=== PATIENT | female | born 1950 | race Caucasian/White ===

== ENCOUNTER → 2023-06-26 | Outpatient (CLI) | payer MEDICARE, OTHER, SELFPAY ==
--- NOTE | 2023-06-26 09:19 | US_ITS ---
STUDY: ULTRASOUND BREAST - RIGHT REASON FOR EXAM: Female, 72 years old. Abnormal screening mammogram. TECHNIQUE: Axial and longitudinal images of the RIGHT breast were performed with a high resolution ultrasound transducer. # OF IMAGES: 35 COMPARISON: Comparison is made with prior outside examination dated June 22, 2023. FINDINGS: RIGHT Breast: The inferior lateral aspect of the right breast was examined with ultrasound. There is a 4 mm x 5 mm x 3 mm hypoechoic irregular nodule at the 7:00 position breast at 5 cm from the nipple. Biopsy is recommended. There is also evidence of dilated retroareolar ducts. US/Breast Limited Unilateral IMPRESSION: 4 mm x 5 mm x 3 mm hypoechoic irregular nodule at the 7:00 position of the breast at 5 cm from nipple. Biopsy recommended. ASSESSMENT CATEGORY: BIRADS Category 4: Suspicious - Biopsy Should Be Considered. A letter regarding these results will be sent to the patient by the facility within 30 days. Electronically Signed: Alexander Orr MD at 14:48 EST ,
--- OUTSIDE RECORDS SUMMARY | 2023-06-26 09:55 | XMS RPT_ITS | CCD ---
Author Name Unknown Address [address] [place] [address] Organization [facility] Care Team Providers Care Assembler Dc Field Ring Name Role Phone Unavailable Unavailable Unavailable Marissa Chakraborty Unavailable Lorraine, Paulette Macdonald Unavailable Unavailable Paulette Peters Unavailable Unavailable Paulette Peters Unavailable Unavailable Paulette Peters Unavailable Unavailable Marissa Chakraborty Primary Care Provider [phone] Paulette Peters Primary Care Provider PAULETTE PETERS Attending Unavailable MARISSA CHAKRABORTY Primary Care Unavailable MARISSA CHAKRABORTY Primary Care Unavailable SHERLEY NO Attending Unavailable August Attending Unavailable MARISSA CHAKRABORTY Primary Care Unavailable ANNA PITTS Attending Unavailvineet e PAULETTE PETERS Primary Care Unavailable PAULETTE PETERS Attending Unavailable PAULETTE PETERS Primary Care Unavailable ANNA PITTS Admitting UnavailANNA Pedraza Referring Unavailvineet e PAULETTE PETERS Primary Care Unavailable MARISSA CHAKRABORTY Admitting Unavailable MARISSA CHAKRABORTY Referring Unavailable MARISSA CHAKRABORTY Primary Care Unavailable MARISSA CHAKRABORTY Attending Unavailable MARISSA CHAKRABORTY Primary Care Unavailable Marissa Chakraborty Primary Care Provider [phone] Bhanu Meng MD Primary Care Provider [phone] DENNYS BANEGAS Attending Unavailab BHANU Matos Primary Care Unavailable Bhanu Meng Unavailable Jaqueline Ly Unavailable Unavailable Bhanu Meng Unavailable Chris Duran Unavailable Unavailable Marilyn Hair Unavailable [phone] [employer] ELAM, Bhanu Colin Primary Care Provider [phone] [employer] ELAM, Bhanu Colin Primary Care Provider Ta[employer] ELAM, Bhanu Colin Primary Care Provider Gerardo Adair Unavailable Unavailable Taqueria ELAM, Bhanu Colin Primary Care Provider [phone] Bijan Carrillo Admitting Unavailable Bijan Carrillo Attending Unavailable Taqueria, Dr. Bhanu Lemons Primary Care Huyen Meng, Dr. Bhanu Lemons Referring Huyen Carroll, Ms. Hannah Dorantes Attending Unavailable Taqueria, Dr. Bhanu Lemons Primary Care Huyen Meng, Dr. Bhanu Lemons [facility] Adair, Dr. Gerardo Nicole Attending Unavaila shauna Meng MD, Bhanu Lemons [facility] Care Provider MARILYN HAIR Referring Unavailable MARILYN HAIR Attending Unavailable PRITI MENGREY [place] Primary Care Unavailable MARILYN HAIR Attending Unavailable TAQUERIA, BHANU [place] Primary Care Unavailable TAQUERIA BHANU [place] Primary Care Unavailable BHANU MENG Referring Unavailable VETOTHONY, MIESHA Referring Unavailable TAQUERIA, BHANU A Primary Care Unavailable VETOMIESHA BHANDARI Attending Unavailable TAQUERIA, BHANU A Primary Care Unavailable RAFAELA WASHINGTON Attending Unavailable TAQUERIA, BHANU A Primary Care Unavailable MARILYN HAIR Attending Unavailable TAQUERIA, BHANU A Primary Care Unavailable MARILYN HAIR Attending Unavailable TAQUERIA BHANU A Primary Care Unavailable KARLI MARILYN Referring Unavailable TAQUERIA, BHANU A Primary Care Unavailable MARILYN HAIR Attending Unavailable TAQUERIA, BHANU A Primary Care Unavailable RAFAELA WASHINGTON Attending Unavailable TAQUERIA BHANU A Primary Care Unavailable BHANU MENG [facility] UnavailCHRIS Pineda Attending Unavailable CHRIS DURAN Referring Unavailable BHANU MENG [facility] Care Unavailabl e BHANU MENG Referring Unavailabl e BHANU MENG [facility] Unavailabl e BHANU MENG [facility] Unavailabl e CHRIS DURAN Attending Unavailable Allergies Allergy Classification Reported Allergen(s) Allergy Type Date of Onset Reaction(s) Facility Opioid Agonists (2 sources) Meperidine; Translations: [MEPERIDINE] Drug Allergy 8 GI Intolerance [facility] Work Phone: (14 sources) cat dander extract; Translations: [CAT DANDER] Propensity to adverse reactions to drug 6 Itching [facility] Work Phone: (14 sources) AGRAWAL PHAM; Translations: [AGRAWAL PHAM] Propensity to adverse reactions to drug 6 Other (See Comments) [facility] Work Phone: (14 sources) RAGWEED; Translations: [RAGWEED] Propensity to adverse reactions to drug 6 Other (See Comments) [facility] Work Phone: (20 sources) meperidine; Translations: [Unknown] Drug Allergy 8 GI Intolerance [facility] Medications Current Medications Medication Drug Class(es) Dates Sig (Normalized) Sig (Original) amoxicillin 875 mg / clavulanate 125 mg oral tablet (4 sources) Penicillin-class Antibacterial Start: 04-22-2023 End: 04-29-2023 take 1 tablet by mouth every twelve hours amoxicillin-pot clavulanate (Augmentin) 875-125 mg tablet Indications: Acute pharyngitis, unspecified etiology Take 1 tablet (875 mg) by mouth every 12 hours for 7 days. 14 tablet 0 04/22/2023 04/29/2023 Active Completed/Discontinued Medications Medication Drug Class(es) Dates Sig (Normalized) Sig (Original) benzonatate 200 mg oral capsule (7 sources) Non-narcotic Antitussive Start: 08-23-2022 End: 01-20-2023 take 1 capsule by mouth every eight hours as needed Benzonatate 200 mg capsule Take 1 capsule by mouth three times daily as needed. 20 capsule 0 08/23/2022 01/20/2023 Discontinued Problems Active Problems Problem Classification Problem Date Documented Da te Episodic/Chronic Abdominal pain (10 sources) Right lower quadrant pain; Translations: [Abdominal pain, right lower quadrant] Episodic Conditions associated with dizziness or vertigo (2 sources) Benign paroxysmal positional vertigo; Translations: [Benign paroxysmal positional vertigo] 11-16-2020 Episodic Disorders of lipid metabolism (3 sources) Dyslipidemia; Translations: [Hyperlipidemia, unspecified] Onset: 07-18-2022 Chronic Diverticulosis and diverticulitis (1 source) Diverticulosis of large intestine without perforation or abscess without bleeding; Translations: [Dvrtclos of lg int w/o perforation or abscess w/o bleeding] Onset: 01-17-2023 Chronic Esophageal disorders (1 source) Gastro-esophageal reflux disease with esophagitis; Translations: [Gastroesophageal reflux disease with esophagitis without hemorrhage] 05-21-2023 Chronic Esophageal disorders (2 sources) Esophageal disorders; Translations: [Gastro-esophageal reflux disease with esophagitis, without bleeding] Onset: 05-21-2023 Essential hypertension (20 sources) Hypertensive disorder; Translations: [Unspecified essential hypertension] Onset: 01-16-2022 11-16-2020 Chronic Headache; including migraine (1 source) Headache; including migraine; Translations: [Headache, unspecified] Onset: 03-07-2022 Hemorrhoids (10 sources) Internal hemorrhoids; Translations: [Internal hemorrhoids without mention of complication] Episodic Nonmalignant breast conditions (1 source) Fibrocystic disease of breast Chronic Osteoarthritis (20 sources) Bilateral arthritis of knees; Translations: [Bilateral primary osteoarthritis of knee] Onset: 04-29-2020 10-19-2020 Chronic Osteoporosis (20 sources) Senile osteoporosis; Translations: [Age-related osteoporosis without current pathological fracture] Onset: 01-06-2021 01-06-2021 Chronic Other and unspecified benign neoplasm (3 sources) Personal history of colonic polyps; Translations: [Personal history of colonic polyps] Onset: 01-17-2023 Episodic Other bone disease and musculoskeletal deformities (1 source) Osteochondropathy; Translations: [Disorder of bone and cartilage] Chronic Other gastrointestinal disorders (10 sources) Incontinence of feces; Translations: [Full incontinence of feces] Episodic Other injuries and conditions due to external causes (1 source) At low risk for fall; Translations: [At low risk for fall] Episodic Other liver diseases (1 source) Enzyme level - finding; Translations: [Abnormal levels of other serum enzymes] Episodic Other screening for suspected conditions (not mental disorders or infectious disease) (20 sources) Breast neoplasm screening status; Translations: [Patient encounter status] Onset: 10-25-2016 10-25-2016 Episodic Other upper respiratory disease (12 sources) Allergic rhinitis; Translations: [Allergic rhinitis, unspecified] Onset: 02-27-2017 02-27-2017 Chronic Other upper respiratory disease (3 sources) Seasonal allergic rhinitis; Translations: [Seasonal allergic rhinitis, unspecified trigger] Chronic Other upper respiratory disease (2 sources) Pain in throat 03-08-2021 Episodic Past or Other Problems Problem Classification Problem Date Documented Date Episodic/Chronic Acute bronchitis (1 source) Acute bronchitis, unspecified; Translations: [Acute bronchitis, unspecified] Onset: 08-21-2022 Episodic Administrative/social admission (20 sources) Advance directive discussed with patient; Translations: [Other specified counseling] Onset: 11-23-2021 Episodic Cardiac dysrhythmias (20 sources) Palpitations; Translations: [Palpitations] Onset: 05-06-2015 05-06-2015 Episodic Diabetes mellitus without complication (20 sources) Hyperglycemia; Translations: [Impaired fasting glucose] Onset: 07-08-2019 03-18-2020 Episodic Genitourinary symptoms and ill-defined conditions (9 sources) Dysuria; Translations: [Dysuria] Onset: 01-25-2018 Resolved: 06-13-2018 01-25-2018 Episodic Nonspecific chest pain (9 sources) Chest pain; Translations: [Chest pain, unspecified] Onset: 04-12-2018 Resolved: 06-13-2018 04-12-2018 Episodic Other circulatory disease (13 sources) Spider nevus; Translations: [Nevus, non-neoplastic] Onset: 01-14-2016 01-14-2016 Episodic Other circulatory disease (11 sources) Elevated blood-pressure reading without diagnosis of hypertension; Translations: [Elevated blood-pressure reading, without diagnosis of hypertension] Onset: 01-06-2021 01-06-2021 Episodic Other circulatory disease (1 source) Other specified symptoms and signs involving the circulatory and respiratory systems; Translations: [Oth symptoms and signs involving the circ and resp systems] Onset: 08-21-2022 Episodic Other connective tissue disease (6 sources) Lateral epicondylitis, left elbow; Translations: [Lateral epicondylitis of left humerus] Onset: 02-08-2018 02-08-2018 Episodic Other connective tissue disease (20 sources) Pain in left arm; Translations: [Pain in left arm] Onset: 05-06-2015 03-03-2016 Episodic Other diseases of kidney and ureters (20 sources) Cyst of kidney; Translations: [Cyst of kidney, acquired] Onset: 11-26-2021 Episodic Other ear and sense organ disorders (1 source) Otalgia, bilateral; Translations: [Otalgia, bilateral] Onset: 08-21-2022 Episodic Other ear and sense organ disorders (1 source) Otalgia, unspecified ear; Translations: [Otalgia, unspecified ear] Onset: 03-07-2022 Episodic Other injuries and conditions due to external causes (1 source) At risk for falls Episodic Other non-traumatic joint disorders (9 sources) Knee pain; Translations: [Pain in right knee] Onset: 02-08-2018 02-08-2018 Episodic Other non-traumatic joint disorders (20 sources) Pain in left knee; Translations: [Chronic pain of left knee] Onset: 05-06-2015 Episodic Other non-traumatic joint disorders (20 sources) Hip pain; Translations: [Pain in left hip] Onset: 10-25-2016 10-25-2016 Episodic Other non-traumatic joint disorders (3 sources) Pain in right knee; Translations: [Pain in joint, lower leg] Onset: 12-21-2022 12-13-2022 Episodic Residual codes; unclassified (1 source) Postmenopausal state Episodic Residual codes; unclassified (1 source) Generalized aches and pains; Translations: [Body aches] Episodic Residual codes; unclassified (20 sources) FH: Thyroid disorder; Translations: [Family history of other endocrine, nutritional and metabolic diseases] Onset: 10-25-2016 10-25-2016 Episodic Residual codes; unclassified (1 source) Family history of other endocrine, nutritional and metabolic diseases; Translations: [Family history of thyroid disease] Onset: 10-25-2016 Episodic Unclassified (16 sources) Patient encounter status; Translations: [Wellness examination] Onset: 02-27-2017 Resolved: 06-13-2018 02-27-2017 Varicose veins of lower extremity (20 sources) Varicose veins of lower extremity; Translations: [Asymptomatic varicose veins of unspecified lower extremity] Onset: 05-06-2015 01-01-2016 Episodic Results Test Name Value Interpretation Reference Range Facil ity Vital Signs Date Time Vital Sign Value Performing Clinician Facility 05-21-2023 06:04-0500 Diastolic blood pressure 85 mm[Hg] Chris Duran DO Work Phone: [phone] [place] [address] 05-21-2023 06:04-0500 Heart rate 65 /min Chris Duran DO Work Phone: 0(626)[phone] [place] [address] 05-21-2023 06:04-0500 Respiratory rate 18 /min Chris Duran DO Work Phone: 8(297)[phone] [place] [address] 05-21-2023 06:04-0500 SaO2% (BldA) [Mass fraction] 98 % Chris Duran DO Work Phone: 4(216)[phone] [place] [address] 05-21-2023 06:04-0500 Systolic blood pressure 159 mm[Hg] Chris Duran DO Work Phone: 4(733)[phone] [address] 05-21-2023 03:17-0500 Body height 154.9 cm Chris Duran DO Work Phone: 1(680)[phone] [address] 05-21-2023 03:17-0500 Body mass index (BMI) [Ratio] 24.37 kg/m2 Chris Duran DO Work Phone: 5(487)[phone] [place] [address] 05-21-2023 03:17-0500 Body temperature 98.01 [degF] Chris Duran DO Work Phone: 8(817)214-097833 [place] [address] 05-21-2023 03:17-0500 Body weight 58.51 kg Chris Duran DO Work Phone: 2(337)231-261333 [place] [address] 04-22-2023 03:00-0500 Diastolic blood pressure 86 mm[Hg] Chris Duran DO Work Phone: 1(286)565-942933 [place] [address] 04-22-2023 03:00-0500 Heart rate 76 /min Chris Duran DO Work Phone: 9(853)299-475633 [place] [address] 04-22-2023 03:00-0500 Respiratory rate 18 /min Chris Duran DO Work Phone: 6(724)147-853333 [place] [address] 04-22-2023 03:00-0500 SaO2% (BldA) [Mass fraction] 94 % Chris Duran DO Work Phone: [facility] 04-22-2023 03:00-0500 Systolic blood pressure 134 mm[Hg] Chris Duran DO Work Phone: [facility] 04-22-2023 01:20-0500 Body height 154.9 cm Chris Duran DO Work Phone: [facility] 04-22-2023 01:20-0500 Body mass index (BMI) [Ratio] 22.67 kg/m2 Chris Duran DO Work Phone: [facility] 04-22-2023 01:20-0500 Body temperature 98.4 [degF] Chris Duran DO Work Phone: [facility] 04-22-2023 01:20-0500 Body weight 54.43 kg Chris Duran DO Work Phone: [facility] 02-20-2023 08:50-0400 Diastolic blood pressure 78 mm[Hg] Marilyn Hair PA-C Work Phone: [facility] 02-20-2023 08:50-0400 Systolic blood pressure 133 mm[Hg] Marilyn Hair PA-C Work Phone: [facility] 02-20-2023 08:38-0400 Heart rate 75 /min Marilyn Hair PA-C Work Phone: [facility] 02-20-2023 08:25-0400 Body temperature 98.1 [degF] Marilyn Hair PA-C Work Phone: [facility] 02-20-2023 08:25-0400 Body weight 58.97 kg Marilyn Hair PA-C Work Phone: [facility] 02-20-2023 08:25-0400 Respiratory rate 16 /min Marilyn Hair PA-C Work Phone: [facility] 01-20-2023 08:31-0400 Diastolic blood pressure 86 mm[Hg] Marilyn Hair PA-C Work Phone: [facility] 01-20-2023 08:31-0400 Heart rate 73 /min Marilynmarina Hair PA-C Work Phone: [facility] 01-20-2023 08:31-0400 Systolic blood pressure 161 mm[Hg] Marilynmarina Hair PA-C Work Phone: [facility] 01-20-2023 08:02-0400 Body temperature 97.2 [degF] Marilyn Hair PA-C Work Phone: [facility] 01-20-2023 08:02-0400 Body weight 58.51 kg Marilyn Hair PA-C Work Phone: [facility] 01-20-2023 08:02-0400 Respiratory rate 16 /min Marilynmarina Hair PA-C Work Phone: [facility] 11-10-2022 10:50-0400 Body temperature 98.01 [degF] Rafaela Washington APRN.[address] SQL DEVELOPER Work Phone: [facility] 11-10-2022 10:50-0400 Body weight 58.06 kg Rafaela Washington APRN.[address] SQL DEVELOPER Work Phone: [facility] 11-10-2022 10:50-0400 Diastolic blood pressure 78 mm[Hg] Rafaela Washington APRN.[address] SQL DEVELOPER Work Phone: [facility] 11-10-2022 10:50-0400 Heart rate 74 /min Rafaela Washington APRN.[address] SQL DEVELOPER Work Phone: [facility] 11-10-2022 10:50-0400 Respiratory rate 14 /min Rafaela Washington APRN.[address] SQL DEVELOPER Work Phone: [facility] 11-10-2022 10:50-0400 SaO2% (BldA) [Mass fraction] 96 % Rafaela Washington APRN.[address] SQL DEVELOPER Work Phone: [facility] 11-10-2022 10:50-0400 Systolic blood pressure 120 mm[Hg] Rafaela Washington APRN.[address] SQL DEVELOPER Work Phone: [facility] 08-12-2022 09:16-0400 Diastolic blood pressure 88 mm[Hg] Marilyn Hair PA-C Work Phone: [facility] 08-12-2022 09:16-0400 Systolic blood pressure 147 mm[Hg] Marilyn Hair PA-C Work Phone: [facility] 08-12-2022 08:08-0400 Body weight 58.06 kg Marilyn Hair PA-C Work Phone: [facility] 08-12-2022 08:08-0400 Heart rate 70 /min Marilyn Hair PA-C Work Phone: [facility] 08-12-2022 08:08-0400 Respiratory rate 16 /min Marilyn Hair PA-C Work Phone: [facility] 08-12-2022 08:08-0400 SaO2% (BldA) [Mass fraction] 99 % Marilyn Hair PA-C Work Phone: [facility] 07-18-2022 08:29-0500 Diastolic blood pressure 86 mm[Hg] Marilyn Hair PA-C Work Phone: [facility] 07-18-2022 08:29-0500 Systolic blood pressure 158 mm[Hg] Marilyn Hair PA-C Work Phone: [facility] 07-18-2022 08:27-0500 Body weight 58.06 kg Marilyn Hair PA-C Work Phone: [facility] 07-18-2022 08:27-0500 Heart rate 76 /min Marilyn Hair PA-C Work Phone: [facility] 07-18-2022 08:27-0500 Respiratory rate 16 /min Marilyn Hair PA-C Work Phone: [facility] 07-18-2022 08:27-0500 SaO2% (BldA) [Mass fraction] 98 % Marilyn Hair PA-C Work Phone: [facility] 03-07-2022 23:40-0400 Diastolic blood pressure 89 mm[Hg] Bhanu Meng Other Phone: [facility] 03-07-2022 23:40-0400 Heart rate 90 /min Bhanu Meng Other Phone: [facility] 03-07-2022 23:40-0400 Respiratory rate 16 /min Bhanu Meng Other Phone: [facility] 03-07-2022 23:40-0400 SaO2% (BldA) [Mass fraction] 96 % Bhanu Meng Other Phone: [facility] 03-07-2022 23:40-0400 Systolic blood pressure 136 mm[Hg] Bhanu Meng Other Phone: [facility] 03-07-2022 22:12-0400 Body height 154.9 cm Bhanu Meng Other Phone: [facility] 03-07-2022 22:12-0400 Body temperature 98.96 [degF] hBanu Meng Other Phone: [facility] 03-07-2022 22:12-0400 Body weight 56 kg Bhanu Meng Other Phone: [facility] 12-23-2021 09:21-0400 Body weight 57.61 kg Marilyn Hair PA-C Work Phone: [facility] 12-23-2021 09:21-0400 Diastolic blood pressure 82 mm[Hg] Marilyn Hair PA-C Work Phone: [facility] 12-23-2021 09:21-0400 Heart rate 72 /min Marilyn Hair PA-C Work Phone: [facility] 12-23-2021 09:21-0400 Respiratory rate 16 /min Marilyn Hair PA-C Work Phone: [facility] 12-23-2021 09:21-0400 Systolic blood pressure 148 mm[Hg] Marilyn Hair PA-C Work Phone: [facility] 11-26-2021 10:00-0400 Body weight 56.25 kg Marilyn Hair PA-C Work Phone: [facility] 11-26-2021 10:00-0400 Diastolic blood pressure 88 mm[Hg] Marilyn Hair PA-C Work Phone: [facility] 11-26-2021 10:00-0400 Heart rate 72 /min Marilyn Hair PA-C Work Phone: [facility] 11-26-2021 10:00-0400 Respiratory rate 14 /min Marilyn Hair PA-C Work Phone: [facility] 11-26-2021 10:00-0400 Systolic blood pressure 158 mm[Hg] Marilyn Hair PA-C Work Phone: [facility] 11-23-2021 11:20-0400 Diastolic blood pressure 84 mm[Hg] Marilyn Hair PA-C Work Phone: [facility] 11-23-2021 11:20-0400 Heart rate 70 /min Marilyn Hair PA-C Work Phone: [facility] 11-23-2021 11:20-0400 Systolic blood pressure 159 mm[Hg] Marilyn Hair PA-C Work Phone: [facility] 11-23-2021 10:10-0400 Body height 153.5 cm Marilyn Hair PA-C Work Phone: [facility] 11-23-2021 10:10-0400 Body temperature 98.49 [degF] Marilyn Hair PA-C Work Phone: [facility] 11-23-2021 10:10-0400 Body weight 56.7 kg Marilyn Hair PA-C Work Phone: [facility] 11-23-2021 10:10-0400 Respiratory rate 16 /min Marilyn Hair PA-C Work Phone: [facility] 03-08-2021 11:12-0400 Diastolic blood pressure 80 mm[Hg] Bhanu Meng Other Phone: [facility] 03-08-2021 11:12-0400 Heart rate 78 /min Bhanu Meng Other Phone: [facility] 03-08-2021 11:12-0400 SaO2% (BldA) [Mass fraction] 98 % Bhanu Meng Other Phone: [facility] 03-08-2021 11:12-0400 Systolic blood pressure 130 mm[Hg] Bhanu Meng Other Phone: [facility] 03-08-2021 09:46-0400 Body height 154.9 cm Bhanu Meng Other Phone: [facility] 03-08-2021 09:46-0400 Body temperature 95.36 [degF] Bhanu Meng Other Phone: [facility] 11-16-2020 08:57-0400 Diastolic blood pressure 88 mm[Hg] Bhanu Meng Other Phone: [facility] 11-16-2020 08:57-0400 Heart rate 76 /min Bhanu Meng Other Phone: [facility] 11-16-2020 08:57-0400 Systolic blood pressure 169 mm[Hg] Bhanu Meng Other Phone: [facility] 11-16-2020 07:51-0400 Body height 154.9 cm Bhanu Meng Other Phone: [facility] 11-16-2020 07:51-0400 Body temperature 98.24 [degF] Bhanu Meng Other Phone: [facility] 11-16-2020 07:51-0400 Body weight 56.4 kg Bhanu Meng Other Phone: [facility] 11-16-2020 07:51-0400 Respiratory rate 16 /min Bhanu Meng Other Phone: [facility] 11-16-2020 07:51-0400 SaO2% (BldA) [Mass fraction] 96 % Bhanu Meng Other Phone: [facility] 10-27-2020 10:31-0400 Body temperature 97.7 [degF] Dennys Banegas MD Work Phone: [facility] 10-27-2020 10:31-0400 Diastolic blood pressure 92 mm[Hg] Dennys Banegas MD Work Phone: [facility] 10-27-2020 10:31-0400 Heart rate 67 /min Dennys Banegas MD Work Phone: [facility] 10-27-2020 10:31-0400 Respiratory rate 16 /min Dennys Banegas MD Work Phone: [facility] 10-27-2020 10:31-0400 SaO2% (BldA) [Mass fraction] 96 % Dennys Banegas MD Work Phone: [facility] 10-27-2020 10:31-0400 Systolic blood pressure 157 mm[Hg] Dennys Banegas MD Work Phone: [facility] 10-30-2018 10:12-0400 BMI (Body Mass Index) 23.43 kg/m2 [facility] 10-30-2018 10:12-0400 Body Temperature 97.9 [degF] [facility] 10-30-2018 10:12-0400 BP Diastolic 77 mm[Hg] [facility] 10-30-2018 10:12-0400 BP Systolic 137 mm[Hg] [facility] 10-30-2018 10:12-0400 Height 154.9 cm [facility] 10-30-2018 10:12-0400 Pulse (Heart Rate) 78 /min [facility] 10-30-2018 10:12-0400 Pulse Oximetry 98 % [facility] 10-30-2018 10:12-0400 Respiratory Rate 18 /min [facility] 10-30-2018 10:12-0400 Weight 56.25 kg [facility] 10-19-2018 13:55-0400 BMI (Body Mass Index) 23.24 kg/m2 [facility] 10-19-2018 13:55-0400 Body Temperature 98.01 [degF] [facility] 10-19-2018 13:55-0400 BP Diastolic 77 mm[Hg] [facility] 10-19-2018 13:55-0400 BP Systolic 130 mm[Hg] [facility] 10-19-2018 13:55-0400 Height 154.9 cm [facility] 10-19-2018 13:55-0400 Pulse (Heart Rate) 66 /min [facility] 10-19-2018 13:55-0400 Pulse Oximetry 98 % [facility] 10-19-2018 13:55-0400 Respiratory Rate 18 /min [facility] 10-19-2018 13:55-0400 Weight 55.79 kg [facility] 06-14-2018 09:16-0500 BMI (Body Mass Index) 23.24 kg/m2 [facility] 06-14-2018 09:16-0500 Body Temperature 97.5 [degF] [facility] 06-14-2018 09:16-0500 BP Diastolic 73 mm[Hg] [facility] 06-14-2018 09:16-0500 BP Systolic 128 mm[Hg] [facility] 06-14-2018 09:16-0500 Height 154.9 cm [facility] 06-14-2018 09:16-0500 Pulse (Heart Rate) 85 /min [facility] 06-14-2018 09:16-0500 Pulse Oximetry 95 % [facility] 06-14-2018 09:16-0500 Respiratory Rate 16 /min [facility] 06-14-2018 09:16-0500 Weight 55.79 kg [facility] 06-13-2018 08:14-0500 BMI (Body Mass Index) 23.24 kg/m2 [facility] 06-13-2018 08:14-0500 Body Temperature 97.81 [degF] [facility] 06-13-2018 08:14-0500 Body weight 55.79 kg [facility] 06-13-2018 08:14-0500 BP Diastolic 82 mm[Hg] [facility] 06-13-2018 08:14-0500 BP Systolic 131 mm[Hg] [facility] 06-13-2018 08:14-0500 Height 154.9 cm [facility] 06-13-2018 08:14-0500 Pulse (Heart Rate) 74 /min [facility] 06-13-2018 08:14-0500 Pulse Oximetry 97 % [facility] 06-13-2018 08:14-0500 Respiratory Rate 18 /min [facility] 04-12-2018 10:00-0500 BP Diastolic 80 mm[Hg] [facility] 04-12-2018 10:00-0500 BP Systolic 128 mm[Hg] [facility] 04-12-2018 09:14-0500 BMI (Body Mass Index) 23.24 kg/m2 [facility] 04-12-2018 09:14-0500 Height 154.9 cm [facility] 04-12-2018 09:14-0500 Weight 55.79 kg [facility] 02-27-2017 08:51-0400 BMI (Body Mass Index) 23.26 kg/m2 Marissa Chakraborty [facility] Work Phone: 02-27-2017 08:51-0400 Body Temperature 95.4 [degF] Marissa Chakraborty [facility] Work Phone: 02-27-2017 08:51-0400 BP Diastolic 75 mm[Hg] Marissa Chakraborty [facility] Work Phone: 02-27-2017 08:51-0400 BP Systolic 164 mm[Hg] Marissa Chakraborty [facility] Work Phone: 02-27-2017 08:51-0400 Height 154.9 cm Marissa Chakraborty [facility] Work Phone: 02-27-2017 08:51-0400 Pulse (Heart Rate) 67 /min Marissa Chakraborty [facility] Work Phone: 02-27-2017 08:51-0400 Respiratory Rate 18 /min [facility] Work Phone: 02-27-2017 08:51-0400 Weight 55.84 kg [facility] Work Phone: 12-22-2016 11:38-0400 BMI (Body Mass Index) 23.05 kg/m2 [facility] Work Phone: 12-22-2016 11:38-0400 Body Temperature 98.4 [degF] [facility] Work Phone: 12-22-2016 11:38-0400 BP Diastolic 76 mm[Hg] [facility] Work Phone: 12-22-2016 11:38-0400 BP Systolic 148 mm[Hg] [facility] Work Phone: 12-22-2016 11:38-0400 Height 154.9 cm [facility] Work Phone: 12-22-2016 11:38-0400 Pulse (Heart Rate) 67 /min [facility] Work Phone: 12-22-2016 11:38-0400 Pulse Oximetry 97 % [facility] Work Phone: 12-22-2016 11:38-0400 Respiratory Rate 16 /min [facility] Work Phone: 12-22-2016 11:38-0400 Weight 55.34 kg [facility] Work Phone: Encounters Encounter Date Encounter Type Care Provider Facility Start: 06-23-2023 ambulatory RAFAELA Marino y:[facility] Start: 06-22-2023 End: 06-23-2023 ambulatory BHANU MENG [facility] Start: 06-22-2023 End: 06-22-2023 Subsequent hospital visit by physician Farhan [id number] Mammo [facility] Procedures Date Procedure Procedure Detail Performing Clinician Start: 06-22-2023 BI MAMMO BILATERAL SCREENING TOMOSYNTHESIS BHANU MENG Start: 06-22-2023 End: 06-22-2023 Screening digital breast tomosynthesis bi Non- Radiology Contrast Provider Start: 05-24-2023 ECG 12-LEAD BHANU VALADEZ Start: 05-24-2023 Ecg routine ecg w/le ast 12 lds trcg only w/o i&r Chris Guadarramaft DO Work Phone: Start: 05-21-2023 EXTRA TUBES BHANU KOHLI CONSTANTINSONJA Start: 05-21-2023 LIGHT BLUE TOP BHANU MENG Start: 05-21-2023 CBC W Auto Different ial panel - Blood BHANU MENG Start: 05-21-2023 Comprehensive metabo lic 2000 panel - Serum or Plasma BHANU MENG Start: 05-21-2023 Lipase [Enzymatic activity/volume] in Serum or Plasma BHANU MENG Start: 05-21-2023 Magnesium [Mass/volu me] in Serum or Plasma BHANU MENG Start: 05-21-2023 TROPONIN I, HIGH SENSITIVITY BHANU MENG Start: 05-21-2023 XR CHEST 1 VIEW BHANU MENG Start: 05-21-2023 Comprehensive metabo lic panel Chris Bergeron Duran DO Work Phone: Start: 05-21-2023 Radiologic exam ches t single view Chris Bergeron Duran DO Work Phone: Start: 04-22-2023 GROUP A STREPTOCOCCUS, PCR BHANU TAQUERIA Start: 04-22-2023 Iadna streptococcus group a amplified probe tq Chris Bergeron Duran DO Work Phone: Start: 01-17-2023 Colonoscopy Marilyn sawyer PA-C Work Phone: Start: 01-16-2023 Lipid 1996 panel - S christine or Plasma Marilyn Hair PA-C Work Phone: Start: 12-21-2022 Radiologic exam knee complete 4/more views Miesha Jefferson PA-C Work Phone: Start: 11-25-2021 Us abdominal real ti me w/image limited Marilyn Hair PA-C Work Phone: Start: 11-23-2021 Adult depression scr eening assessment Marilyn Hair PA-C Work Phone: Start: 09-27-2021 Radiologic exam knee complete 4/more views Jamar Albert MD Work Phone: Start: 11-16-2020 End: 11-16-2020 EKG impression Jaqueline Ly Start: 10-19-2020 Adult depression scr eening assessment Jamar Albert MD Work Phone: Start: 01-15-2020 Mammography Chris Duran DO Work Phone: Start: 06-14-2018 Adult depression scr eening assessment Dennys Banegas MD Work Phone: Start: 06-13-2018 Influenzavirus antib erik assay Paulette Peters Work Phone: Start: 04-12-2018 End: 04-12-2018 Complete blood count with white cell differential, manual Paulette Peters Work Phone: Start: 04-12-2018 End: 04-12-2018 Comprehensive metabolic 2000 panel - Serum or Plasma Paulette Fischer Morrill Work Phone: Start: 04-12-2018 End: 04-12-2018 Erythrocyte sedimentation rate by Westergren method Paulette Peters Work Phone: Start: 04-12-2018 End: 04-12-2018 Lipid 1996 panel - Serum or Plasma Paulette Peters Work Phone: Start: 04-12-2018 End: 04-12-2018 [facility] - CARDIAC TROPONIN-I Paulette Borjas [facility] Work Phone: Start: 04-12-2018 End: 04-12-2018 Thyrotropin [Units/volume] in Serum or Plasma by Detection limit <= 0.005 mIU/L Paulette Peters Work Phone: Start: 04-12-2018 End: 04-12-2018 12 lead ECG Paulette Peters Work Phone: Start: 09-01-2017 Colonoscopy Paulette Peters Plan of Treatment Date Care Activity Detail Author Start: 01-17-2033 Screening for malignant neoplasm of colon [facility] Start: 01-18-[address] [facility] Start: 01-18-2028 Colorectal Cancer Screening Colorectal Cancer Screening [facility] Start: 01-18-2028 Screening for malignant neoplasm of colon Colonoscopy [facility] Start: 01-17-2028 Lipid 1996 panel - Serum or Plasma Lipid Screening [facility] Start: 01-17-2028 Lipid panel Lipid Screening [facility] Start: 01-17-2028 LIPID SCREEN LIPID SCREEN [facility] Start: 09-02-2027 Screening colonoscopy COLONOSCOPY [facility] Start: 07-18-2027 L[address]ID SCREEN LIPID SCREEN [facility] Start: 11-23-2026 LIPID SCREEN LIPID SCREEN [facility] Start: 01-16-2026 DIABETES SCREEN DIABETES SCREEN [facility] Start: 01-16-2026 Diabetes Screening Diabetes Screening [facility] Start: 10-19-2025 LIPID SCREEN LIPID SCREEN [facility] Start: 07-18-2025 DIABETES SCREEN DIABETES SCREEN [facility] Start: 12-01-2024 DTaP/Tdap/Td Vaccines (2 - Td or Tdap) DTaP/Tdap/Td Vaccines (2 - Td or Tdap) [facility] Start: 12-01-2024 Tetanus vaccination [facility] Work Phone: Start: 12-01-[address] [facility] Start: 11-23-2024 DIABETES SCREEN DIABETES SCREEN [facility] Start: 06-22-2024 Screening for malignant neoplasm of breast Mammogram [facility] Start: 02-21-2024 Annual PCP Team Chronic Disease Visit Annual PCP Team Chronic Disease Visit [facility] Start: 01-21-2024 ANNUAL PCP TEAM CHRONIC DISEASE VISIT ANNUAL PCP TEAM CHRONIC DISEASE VISIT [facility] Start: 11-26-2023 Influenza vaccination Influenza Vaccine (#1) [facility] Immunizations Immunization Date Immunization Notes Care Provider Fa david 07-08-2019 influenza virus vaccine, unspecified formulation Marilyn Hair PA-C Work Phone: [facility] 12-01-2014 tetanus toxoid, redu sparkle diphtheria toxoid, and acellular pertussis vaccine, adsorbed Marissa Ivet [facility] Work Phone: 09-12-1991 hepatitis B vaccine, adult dosage [facility] 09-12-1991 hepatitis B vaccine, pediatric or pediatric/adolescent dosage Marilyn Hair PA-C Work Phone: [facility] 05-07-1991 hepatitis B vaccine, adult dosage [facility] 05-07-1991 hepatitis B vaccine, pediatric or pediatric/adolescent dosage Marilyn Hair PA-C Work Phone: [facility] 03-13-1991 hepatitis B vaccine, adult dosage [facility] 03-13-1991 hepatitis B vaccine, pediatric or pediatric/adolescent dosage Marilyn Hair PA-C Work Phone: [facility] Payers Date Payer Category Payer Unknown 2015 Medicare MEDICARE MEDICAR E PART A & B xxxxxxxxxxx 2015-Present [place] xxxxxxxxx[place] [id number] 2015 Medicare [id number] 2015 Medicare [id number] 2015 Unknown [id number] 2015 Unknown MMO MEDICAL MUT[place] OF [place] TRADITIONAL xxxxxxxxxxxx 2015-Present xxxxxxxxxxxx [id number] 2015 Unknown [id number] 2014 Medicare [id number] 1950 Unknown [id number] 1950 Unknown [id number] [id number]3 1950 Unknown [id number] [id number]3 1950 Unknown [id number] 2.16.840.1.530896.3.579.2.903 1950 Unknown [id number] 2.16.840.1.379130.3.579.2.903 1950 Unknown [id number] 2.16.840.1.842106.3.579.2.903 1950 Unknown [id number] 2.16.840.1.207927.3.579.2.903 1950 Unknown [id number] 2.16.840.1.329860.3.579.2.903 1950 Unknown [id number] 2.16.840.1.719775.3.579.2.902 1950 Unknown [id number] 2.16.840.1.976194.3.579.2.106 9 1950 Unknown [id number] 2.16.840.1.572954.3.579.2.106 9 1950 Unknown [id number] 2.16.840.1.760209.3.579.2.106 9 1950 Unknown [id number] 2.16.840.1.948731.3.579.2.124 3 1950 Unknown [id number] 2.16.840.1.758505.3.579.2.124 3 1950 Unknown [id number] 2.16.840.1.816540.3.579.2.124 3 1950 Unknown [id number] [id number] 3 Medicare [id number] Social History Date Type Detail Facility Start: 01-30-2017 End: 04-22-2023 Tobacco smoking status NHIS Never smoker [facility] Work Phone: Start: 1950 Sex Assigned At Not on file O [facility] Work Phone: Start: 06-14-2018 End: 10-30-2018 History SDOH Alcohol Frequency 3 [facility] Start: 06-14-2018 End: 10-30-2018 History SDOH Alcohol Std Drinks 1 [facility] Start: 06-14-2018 History SDOH Social Connections Phone 5 [facility] Start: 06-14-2018 History SDOH Social Connections Get Together 2 [facility] Start: 06-14-2018 History SDOH Physica l Activity DPW 7 [facility] Start: 06-14-2018 History SDOH Physica l Activity MPS 6 [facility] Start: 06-14-2018 History SDOH Education 13 [facility] Start: 01-14-2016 Alcohol Comment 5 glasses of w ine a month [facility] Start: 10-30-2018 End: 04-22-2023 Tobacco use and exposure Never used [facility] Start: 10-30-2018 End: 02-20-2023 Alcohol intake Current drinker of alcohol (finding) [facility] Start: 09-17-2021 End: 06-22-2023 Exposure to SARS-CoV-2 (event) Not sure [facility] Tobacco smoking consumption unknown [facility] Start: 12-09-2022 End: 06-22-2023 Non-smoker Non-smoker [facility] Work Phone: Start: 06-17-2019 History SDOH Alcohol Comment ocassional wine [facility] Start: 12-09-2022 End: 06-22-[address] [facility] Work Phone: Adult Depression Screening Assessment [address] [facility] Work Phone: Start: 1950 Sex Assigned At Female C [facility] Start: 12-20-2022 Gender identity Identifies as female gender (finding) [facility] Goals Date Patient Goal Desired Activity /State Clinical Notes 10-27-2020 to 06-23-2023 Chris Duran, DO 05/21/2023 3:13 AM Claribel Duran, DO 05/21/2023 3:13 AM Lily Harris MA - 05/09/2023 12:09 PM Lily Harris MA - 05/09/2023 7:40 AM ESTPatient Instructions Note Date & Type Note Facility 06-23-2023 Note HNO ID: [id number] Author: RAFAELA WASHINGTON APRN.[address] [employer]ELOPER Service: ? Author Type: Nurse Practitioner Type: Progress Notes Filed: 06/23/2023 09:21 Note Text: Chief Complaint Patient presents with: Follow Up: Discuss mammogram results HPI Laim Hu is a 72 year old female who presents here today for Above Complaints.. Patient presents to discuss mammogram results. Patient had mammogram at that showed a well-defined ovoid mass in the 6:00 position of the right breast. Past medical history, appointments, medications, allergies reviewed. Previous Medical History PAST MEDICAL HISTORY Diagnosis Date Age-related osteoporosis without current pathological fracture 01/06/2021 patient declines treatment beyond calcium and vit d as of 01/06/21. Repeat bone density in 2 years Arthritis of both knees 04/29/2020 Sever on right and moderate on left of medial joint spaces. Elevated fasting glucose 07/08/2019 Family history of thyroid disease 10/25/2016 Hemorrhage of rectum and anus 08/03/2005 Hypertension, essential 01/16/2022 Medicare annual wellness visit, subsequent 10/25/2016 last done: 10/25/2016 Pain in left knee 05/06/2015 Varicose veins 05/06/2015 Previous Surgical History PAST SURGICAL HISTORY Procedure Laterality Date COLONOSCOPY 2005 FECAL OCCULT BLOOD TEST 11/08/2016 negative PAST SURGICAL HISTORY OF 1977 varicose veins stripped bilateral. PAST SURGICAL HISTORY OF sclerotherapy several times PAST SURGICAL HISTORY OF 2007 anterior vaginal repair prolapse Family History FAMILY HISTORY Problem Relation Age of Onset Alzheimer's Disease Father Diabetes Paternal Grandmother Stroke Maternal Grandfather Cancer Mother smoker Thyroid Mother Patient Allergies ALLERGIES No Known Allergies Current Medications Current Outpatient Medications on File Prior to Visit Medication Sig diclofenac, EC, (VOLTAREN) 75 mg EC tablet Take 1 tablet by mouth twice daily. For pain/inflammation. Take with food. lisinopril (ZESTRIL) 10 mg tablet Take 1 tablet by mouth once daily. Cholecalciferol, Vitamin D3, 1,000 unit cap Take 2,000 Units by mouth once daily. No current facility-administered medications on file prior to visit. Social History Social History Tobacco Use Smoking status: Never Smokeless tobacco: Never Vaping Use Vaping Use: Never used Substance Use Topics Alcohol use: Yes Comment: ocassional wine Drug use: Never Review of Symptoms REVIEW OF SYSTEMS SEE HPI EXAM: BP 160/82 Pulse 78 Resp 14 Wt 59 kg (130 lb) BMI 25.03 kg/m? General Appearance: Well appearing, alert, in no acute distress, well-hydrated, well nourished.. Health Maintenance List BP Controlled (<130/80) Never done RSV Vaccine(1 - 1-dose 60+ series) Never done Advance Directive Discussion due on 05/29/2023 Depression Assessment due on 05/29/2023 Shingrix Vaccine(1 of 2) due on 07/18/2023 Covid-19 Vaccine(1) due on 07/18/2023 Pneumococcal Vaccine: 65+(1 of 1 - PCV) due on 07/18/2023 Influenza Vaccine(1) due on 11/26/2023 Annual PCP Team Chronic Disease Visit due on 02/21/2024 Mammogram Screening due on 06/22/2024 DTaP,Tdap,Td Vaccine(2 - Td or Tdap) due on 12/01/2024 Diabetes Screening due on 05/21/2026 Lipid Screening due on 01/17/2028 Bone Density Screening Completed Hepatitis C Screening Completed Colorectal Cancer Screening Discontinued ASSESSMENT/PLAN: 1. Abnormal mammogram - ICD9: 793.80, ICD10: R92.8 - US BREAST LTD RIGHT Rafaela Washington APRN.[facility] 06-22-2023 Note Mass in the right br east, as described above. Further evaluation with ultrasound is recommended. BI-RADS CATEGORY: BI-RADS Category: 0 Incomplete; Need Additional Imaging Evaluation and/or Prior Mammograms for Comparison. Recommendation: Ultrasound. Recommended Date: Immediate. Laterality: Right. MACRO: None Signed by: Naveen Barba 06/22/2023 10:03 AM Dictation workstation: [id number] [facility] 05-21-2023 Emergency department Note HPI Chief Complaint Patient presents with GERD Pt comes in for heart burn x 30 mins. Pt states that she was woken up approx 30 min travel pta. She states she is having a burning sensation from her neck to her chest. Pt denies any numbness or SOB 72-year-old female presents with chief complaint of midepigastric pain. Patient was awoken with severe reflux. Patient states she has had some intermittent episodes over the last several months but this was the most significant one. Patient denies any chest pain or palpitation. No nausea, vomiting or diarrhea. Patient will be given oral omeprazole 40 mg p.o. and reassess. Patient did have moderate relief with medication will be discharged. I did go over all the findings with the patient prior to discharge. History provided by: Patient No data recorded Patient History History reviewed. No pertinent past medical history. History reviewed. No pertinent surgical history. No family history on file. Social History Tobacco Use Smoking status: Never Smokeless tobacco: Never Substance Use Topics Alcohol use: Not on file Drug use: Not on file Physical Exam ED Triage Vitals [05/21/23 0317] Temp Heart Rate Resp BP 36.7 C (98 F) 67 16 151/83 SpO2 Temp Source Heart Rate Source Patient Position 97 % Temporal Monitor Sitting BP Location FiO2 (%) Left arm -- Physical Exam Vitals and nursing note reviewed. Constitutional: General: She is not in acute distress. Appearance: She is well-developed. HENT: Head: Normocephalic and atraumatic. Eyes: Conjunctiva/sclera: Conjunctivae normal. Cardiovascular: Rate and Rhythm: Normal rate and regular rhythm. Heart sounds: No murmur heard. Pulmonary: Effort: Pulmonary effort is normal. No respiratory distress. Breath sounds: Normal breath sounds. Abdominal: Palpations: Abdomen is soft. Tenderness: There is abdominal tenderness. Comments: Slight midepigastric pain to palpation. Musculoskeletal: General: No swelling. Cervical back: Neck supple. Skin: General: Skin is warm and dry. Capillary Refill: Capillary refill takes less than 2 seconds. Neurological: Mental Status: She is alert. Psychiatric: Mood and Affect: Mood normal. XR chest 1 view Final Result 1. No radiographic evidence of acute cardiopulmonary process. MACRO: None. Signed by: Winter Flanagan 05/21/2023 4:27 AM Dictation workstation: [id number] ED Course & [facility] ED Course as of 05/21/23 0558 [place] May 21, 2023 0356 Twelve-lead EKG interpreted by myself at 0330. 1 normal sinus rhythm at 66 2 low voltage criteria 3 no ectopy [MS] ED Course User Index [MS] Chris Duran, Diagnoses as of 05/21/23 0558 Gastroesophageal reflux disease with esophagitis without hemorrhage Labs Reviewed CBC WITH AUTO DIFFERENTIAL - Abnormal Result Value WBC 5.9 nRBC 0.0 RBC 4.76 Hemoglobin 14.9 Hematocrit 46.3 (*) MCV 97 MCH 31.3 MCHC 32.2 RDW 12.8 Platelets 174 Neutrophils % 59.9 Immature Granulocytes %, Automated 0.3 Lymphocytes % 27.2 Monocytes % 9.0 Eosinophils % 2.4 Basophils % 1.2 Neutrophils Absolute 3.52 Immature Granulocytes Absolute, Automated 0.02 Lymphocytes Absolute 1.60 Monocytes Absolute 0.53 Eosinophils Absolute 0.14 Basophils Absolute 0.07 COMPREHENSIVE METABOLIC PANEL - Abnormal Glucose 112 (*) Sodium 140 Potassium 4.0 Chloride 112 (*) Bicarbonate 23 Anion Gap 9 (*) Urea Nitrogen 19 Creatinine 0.59 eGFR >90 Calcium 8.9 Albumin 3.8 Alkaline Phosphatase 68 Total Protein 6.2 (*) AST 31 Bilirubin, Total 0.3 ALT 37 MAGNESIUM - Normal Magnesium 1.96 LIPASE - Normal Lipase 23 Narrative: Venipuncture immediately after or during the administration of Metamizole may lead to falsely low results. Testing should be performed immediately prior to Metamizole dosing. TROPONIN I, HIGH SENSITIVITY - Normal Troponin I, High Sensitivity <3 Narrative: Less than 99th percentile of normal range cutoff- Female and children under 18 years old <14 ng/L; Male <21 ng/L: Negative Repeat testing should be performed if clinically indicated. Female and children under 18 years old 14-50 ng/L; Male 21-50 ng/L: Consistent with possible cardiac damage and possible increased clinical risk. Serial measurements may help to assess extent of myocardial damage. >50 ng/L: Consistent with cardiac damage, increased clinical risk and myocardial infarction. Serial measurements may help assess extent of myocardial damage. NOTE: Children less than 1 year old may have higher baseline troponin levels and results should be interpreted in conjunction with the overall clinical context. NOTE: Troponin I testing is performed using a different testing methodology at [facility] than at other [facility]. Direct result comparisons should only be made within the same method. Medical Decision Making Take medication as prescribed. Follow-up with [facility] medical doctor in 1 to 2 days if worse return to ED. Procedure Procedures Chris Duran DO 05/21/23 0558 documented in this encounter [facility] Work Phone: 05-21-2023 Physician Emergency department Note HPI Chief Complaint Patient presents with GERD Pt comes in for heart burn x 30 mins. Pt states that she was woken up approx 30 min travel pta. She states she is having a burning sensation from her neck to her chest. Pt denies any numbness or SOB 72-year-old female presents with chief complaint of midepigastric pain. Patient was awoken with severe reflux. Patient states she has had some intermittent episodes over the last several months but this was the most significant one. Patient denies any chest pain or palpitation. No nausea, vomiting or diarrhea. Patient will be given oral omeprazole 40 mg p.o. and reassess. Patient did have moderate relief with medication will be discharged. I did go over all the findings with the patient prior to discharge. History provided by: Patient No data recorded Patient History History reviewed. No pertinent past medical history. History reviewed. No pertinent surgical history. No family history on file. Social History Tobacco Use Smoking status: Never Smokeless tobacco: Never Substance Use Topics Alcohol use: Not on file Drug use: Not on file Physical Exam ED Triage Vitals [05/21/23 0317] Temp Heart Rate Resp BP 36.7 C (98 F) 67 16 151/83 SpO2 Temp Source Heart Rate Source Patient Position 97 % Temporal Monitor Sitting BP Location FiO2 (%) Left arm -- Physical Exam Vitals and nursing note reviewed. Constitutional: General: She is not in acute distress. Appearance: She is well-developed. HENT: Head: Normocephalic and atraumatic. Eyes: Conjunctiva/sclera: Conjunctivae normal. Cardiovascular: Rate and Rhythm: Normal rate and regular rhythm. Heart sounds: No murmur heard. Pulmonary: Effort: Pulmonary effort is normal. No respiratory distress. Breath sounds: Normal breath sounds. Abdominal: Palpations: Abdomen is soft. Tenderness: There is abdominal tenderness. Comments: Slight midepigastric pain to palpation. Musculoskeletal: General: No swelling. Cervical back: Neck supple. Skin: General: Skin is warm and dry. Capillary Refill: Capillary refill takes less than 2 seconds. Neurological: Mental Status: She is alert. Psychiatric: Mood and Affect: Mood normal. XR chest 1 view Final Result 1. No radiographic evidence of acute cardiopulmonary process. MACRO: None. Signed by: Winter Flanagan 05/21/2023 4:27 AM Dictation workstation: [id number] ED Course & [facility] ED Course as of 05/21/23 0558 Sun May 21, 2023 0356 Twelve-lead EKG interpreted by myself at 0330. 1 normal sinus rhythm at 66 2 low voltage criteria 3 no ectopy [MS] ED Course User Index [MS] Chris Bergeron Duran, DO Diagnoses as of 05/21/23 0558 Gastroesophageal reflux disease with esophagitis without hemorrhage Labs Reviewed CBC WITH AUTO DIFFERENTIAL - Abnormal Result Value WBC 5.9 nRBC 0.0 RBC 4.76 Hemoglobin 14.9 Hematocrit 46.3 (*) MCV 97 MCH 31.3 MCHC 32.2 RDW 12.8 Platelets 174 Neutrophils % 59.9 Immature Granulocytes %, Automated 0.3 Lymphocytes % 27.2 Monocytes % 9.0 Eosinophils % 2.4 Basophils % 1.2 Neutrophils Absolute 3.52 Immature Granulocytes Absolute, Automated 0.02 Lymphocytes Absolute 1.60 Monocytes Absolute 0.53 Eosinophils Absolute 0.14 Basophils Absolute 0.07 COMPREHENSIVE METABOLIC PANEL - Abnormal Glucose 112 (*) Sodium 140 Potassium 4.0 Chloride 112 (*) Bicarbonate 23 Anion Gap 9 (*) Urea Nitrogen 19 Creatinine 0.59 eGFR >90 Calcium 8.9 Albumin 3.8 Alkaline Phosphatase 68 Total Protein 6.2 (*) AST 31 Bilirubin, Total 0.3 ALT 37 MAGNESIUM - Normal Magnesium 1.96 LIPASE - Normal Lipase 23 Narrative: Venipuncture immediately after or during the administration of Metamizole may lead to falsely low results. Testing should be performed immediately prior to Metamizole dosing. TROPONIN I, HIGH SENSITIVITY - Normal Troponin I, High Sensitivity <3 Narrative: Less than 99th percentile of normal range cutoff- Female and children under 18 years old <14 ng/L; Male <21 ng/L: Negative Repeat testing should be performed if clinically indicated. Female and children under 18 years old 14-50 ng/L; Male 21-50 ng/L: Consistent with possible cardiac damage and possible increased clinical risk. Serial measurements may help to assess extent of myocardial damage. >50 ng/L: Consistent with cardiac damage, increased clinical risk and myocardial infarction. Serial measurements may help assess extent of myocardial damage. NOTE: Children less than 1 year old may have higher baseline troponin levels and results should be interpreted in conjunction with the overall clinical context. NOTE: Troponin I testing is performed using a different testing methodology at [facility] than at other [facility]. Direct result comparisons should only be made within the same method. Medical Decision Making Take medication as prescribed. Follow-up with [facility] medical doctor in 1 to 2 days if worse return to ED. Procedure Procedures Chris Duran DO 05/21/23 [id number] [facility] Work Phone: 05-09-2023 Note HNO ID: [id number] Author: Lily Shelton MA Service: ? Author Type: Ophthalmic Tech Type: Progress Notes Filed: 05/09/2023 12:12 PM Note Text: Opened in error [facility] 05-09-2023 Note Patient Outreach (NE TNAV) LIAM BURNHAM ([id number]) 1950 F Date Time Provider Department 05/09/23 LILY SHELTON During your visit today, we recorded the following information about you: Lily Shelton MA 05/09/2023 2:04 PM Addendum POPULATION HEALTH NAVIGATION OUTREACH Action/ Spoke to Nelsy . She has mammograms and colonoscopy in [place]. [employer] MESSAGE SENT BP Controlled (<130/80 has appointment on 07-25-23 Mammogram Screening Never done Patient Identified by Name and : YES, via phone Outreach Outcome/Action Spoke to patient / parent / legal guardian: Patient declined. Would like to manage scheduling their own appointments Unable to reach patient: Left message [employer] message sent Did you use a PCP flex slot to schedule this appointment? N/A Reason for Outreach Care Gap or Scheduling/Wellness visits Payer: Payor: MEDICARE / Plan: MEDICARE A AND B / Product Type: Medicare / Care Gap Reviewed:: Breast Cancer screening Controlling Blood Pressure Reminder: Reminder note to check Health Maintenance for items below Health Maintenance items due: BP Controlled (<130/80) Never done Mammogram Screening Never done RSV Vaccine(1 - 1-dose 60+ series) Never done Navigation Signature: Lily Shelton MA May 09, 2023 7:40 AM Allergies As of Date: 05/09/2023 (No Known Allergies) Date Reviewed: 02/20/2023 Reviewed by: Taylor Vasquez LPN - Fully Assessed Reason for Visit: Population Health Navigation Outreach [3910] Cmt: ACO CARE GAPS Prescriptions as of 05/09/2023 - diclofenac, EC, (VOLTAREN) 75 mg EC tablet Take 1 tablet by mouth twice daily. For pain/inflammation. Take with food. - lisinopril (ZESTRIL) 10 mg tablet Take 1 tablet by mouth once daily. - Cholecalciferol, Vitamin D3, 1,000 unit cap Take 2,000 Units by mouth once daily. Problem List As Of Date 05/09/2023 Noted Resolved Encounter for gynecological examination without*05/06/2015 Varicose veins [I83.90] 05/06/2015 Pain in left knee [M25.562] 05/06/2015 Palpitations [R00.2] 05/06/2015 Left arm pain [M79.602] 05/06/2015 Family history of thyroid disease [Z83.49] 10/25/2016 Medicare annual wellness visit, subsequent [Z00*10/25/2016 Colon cancer screening [Z12.11] 10/25/2016 Left hip pain [M25.552] 10/25/2016 Encounter for screening for diabetes mellitus [*06/17/2019 Elevated fasting glucose [R73.01] 07/08/2019 Arthritis of both knees [M17.0] 04/29/2020 Age-related osteoporosis without current pathol*01/06/2021 Advance directive discussed with patient [Z71.8*11/23/2021 Renal cyst [N28.1] 11/26/2021 Hypertension, essential [I10] 01/16/2022 Encounter Status:Closed by LILY SHELTON on 05/09/23 [facility] 05-09-2023 History of Present illness Narrative Opened in error documented in this encounter [facility] 05-09-2023 Note HNO ID: [id number] Author: Lily Shelton MA Service: ? Author Type: Ophthalmic Tech Type: Progress Notes Filed: 05/09/2023 2:04 PM Note Text: POPULATION HEALTH NAVIGATION OUTREACH Action/FYI Spoke to Nelsy . She has mammograms and colonoscopy in [place]. [employer] MESSAGE SENT BP Controlled (<130/80 has appointment on 07-25-23 Mammogram Screening Never done Patient Identified by Name and : YES, via phone Outreach Outcome/Action Spoke to patient / parent / legal guardian: Patient declined. Would like to manage scheduling their own appointments Unable to reach patient: Left message [employer] message sent Did you use a PCP flex slot to schedule this appointment? N/A Reason for Outreach Care Gap or Scheduling/Wellness visits Payer: Payor: MEDICARE / Plan: MEDICARE A AND B / Product Type: Medicare / Care Gap Reviewed:: Breast Cancer screening Controlling Blood Pressure Reminder: Reminder note to check Health Maintenance for items below Health Maintenance items due: BP Controlled (<130/80) Never done Mammogram Screening Never done RSV Vaccine(1 - 1-dose 60+ series) Never done Navigation Signature: Lily Shelton MA May 09, 2023 7:40 AM [facility] 05-09-2023 History of Present illness Narrative POPULATION HEALTH NAVIGATION OUTREACH Action/FYI Spoke to Nelsy . She has mammograms and colonoscopy in [place]. [employer] MESSAGE SENT BP Controlled (<130/80 has appointment on 07-25-23 Mammogram Screening Never done Patient Identified by Name and : YES, via phone Outreach Outcome/Action Spoke to patient / parent / legal guardian: Patient declined. Would like to manage scheduling their own appointments Unable to reach patient: Left message [employer] message sent Did you use a PCP flex slot to schedule this appointment? N/A Reason for Outreach Care Gap or Scheduling/Wellness visits Payer: Payor: MEDICARE / Plan: MEDICARE A AND B / Product Type: Medicare / Care Gap Reviewed:: Breast Cancer screening Controlling Blood Pressure Reminder: Reminder note to check Health Maintenance for items below Health Maintenance items due: BP Controlled (<130/80) Never done Mammogram Screening Never done RSV Vaccine(1 - 1-dose 60+ series) Never done Navigation Signature: Lily Shelton MA May 09, 2023 7:40 AM documented in this encounter [facility] 04-22-2023 Emergency department Note HPI Chief Complaint Patient presents with Sore Throat 72-year-old female presents with progressive sore throat and dysphagia. Patient states symptoms started 1 to 2 days ago and progressively worsened. Patient is complaining of some radiation of the pain up into the ears. Patient denies any nausea, vomiting or diarrhea with symptoms. The patient was also complaining of some pain in her left knee. Patient has been taking [id number] medication for that. Patient will be given 1 g of IV Rocephin and 15 mg of Toradol and discharged. History provided by: Patient No data recorded Patient History History reviewed. No pertinent past medical history. History reviewed. No pertinent surgical history. No family history on file. Social History Tobacco Use Smoking status: Never Smokeless tobacco: Never Substance Use Topics Alcohol use: Not on file Drug use: Not on file Physical Exam ED Triage Vitals Temp Pulse Resp BP -- -- -- -- SpO2 Temp src Heart Rate Source Patient Position -- -- -- -- BP Location FiO2 (%) -- -- Physical Exam Vitals and nursing note reviewed. Constitutional: General: She is not in acute distress. Appearance: She is well-developed. HENT: Head: Normocephalic and atraumatic. Mouth/Throat: Comments: Mild posterior pharyngeal erythema. No submandibular lymphadenopathy. Eyes: Conjunctiva/sclera: Conjunctivae normal. Cardiovascular: Rate and Rhythm: Normal rate and regular rhythm. Heart sounds: No murmur heard. Pulmonary: Effort: Pulmonary effort is normal. No respiratory distress. Breath sounds: Normal breath sounds. Abdominal: Palpations: Abdomen is soft. Tenderness: There is no abdominal tenderness. Musculoskeletal: General: No swelling. Cervical back: Neck supple. Skin: General: Skin is warm and dry. Capillary Refill: Capillary refill takes less than 2 seconds. Neurological: Mental Status: She is alert. Psychiatric: Mood and Affect: Mood normal. Labs Reviewed GROUP A STREPTOCOCCUS, PCR - Normal Result Value Group A Strep PCR Not Detected ED Course & MDM Diagnoses as of 04/22/23240 Acute pharyngitis, unspecified etiology Medical Decision Making Take medication as prescribed. Gargle. Follow-up with family medical doctor in 1 to 2 days if no improvement return to ED. Take medication as prescribed Procedure Procedures Chris Duran DO 04/22/23241 documented in this encounter [facility] Work Phone: 04-22-2023 Physician Emergency department Note HPI Chief Complaint Patient presents with Sore Throat 72-year-old female presents with progressive sore throat and dysphagia. Patient states symptoms started 1 to 2 days ago and progressively worsened. Patient is complaining of some radiation of the pain up into the ears. Patient denies any nausea, vomiting or diarrhea with symptoms. The patient was also complaining of some pain in her left knee. Patient has been taking [id number]-[id number]-[id number] medication for that. Patient will be given 1 g of IV Rocephin and 15 mg of Toradol and discharged. History provided by: Patient No data recorded Patient History History reviewed. No pertinent past medical history. History reviewed. No pertinent surgical history. No family history on file. Social History Tobacco Use Smoking status: Never Smokeless tobacco: Never Substance Use Topics Alcohol use: Not on file Drug use: Not on file Physical Exam ED Triage Vitals Temp Pulse Resp BP -- -- -- -- SpO2 Temp src Heart Rate Source Patient Position -- -- -- -- BP Location FiO2 (%) -- -- Physical Exam Vitals and nursing note reviewed. Constitutional: General: She is not in acute distress. Appearance: She is well-developed. HENT: Head: Normocephalic and atraumatic. Mouth/Throat: Comments: Mild posterior pharyngeal erythema. No submandibular lymphadenopathy. Eyes: Conjunctiva/sclera: Conjunctivae normal. Cardiovascular: Rate and Rhythm: Normal rate and regular rhythm. Heart sounds: No murmur heard. Pulmonary: Effort: Pulmonary effort is normal. No respiratory distress. Breath sounds: Normal breath sounds. Abdominal: Palpations: Abdomen is soft. Tenderness: There is no abdominal tenderness. Musculoskeletal: General: No swelling. Cervical back: Neck supple. Skin: General: Skin is warm and dry. Capillary Refill: Capillary refill takes less than 2 seconds. Neurological: Mental Status: She is alert. Psychiatric: Mood and Affect: Mood normal. Labs Reviewed GROUP A STREPTOCOCCUS, PCR - Normal Result Value Group A Strep PCR Not Detected ED Course & MDM Diagnoses as of 04/22/23240 Acute pharyngitis, unspecified etiology Medical Decision Making Take medication as prescribed. Gargle. Follow-up with family medical doctor in 1 to 2 days if no improvement return to ED. Take medication as prescribed Procedure Procedures Chris Duran DO 04/22/23241 [facility] Work Phone: 03-07-2023 Note HNO ID: [id number] Author: Lily Shelton MA Service: ? Author Type: Ophthalmic Tech Type: Progress Notes Filed: 03/07/2023 2:27 PM Note Text: POPULATION HEALTH NAVIGATION OUTREACH Action/FYI HCC : NONE CARE GAPS BP Controlled (<130/80) Never done Mammogram Screening Never done Patient Identified by Name and : NO Outreach Outcome/Action Unable to reach patient: Left message [employer] message sent Did you use a PCP flex slot to schedule this appointment? No Reason for Outreach Care Gap or Scheduling/Wellness visits Payer: Payor: MEDICARE / Plan: MEDICARE A AND B / Product Type: Medicare / Care Gap Reviewed:: Breast Cancer screening Controlling Blood Pressure Reminder: Reminder note to check Health Maintenance for items below Health Maintenance items due: BP Controlled (<130/80) Never done Mammogram Screening Never done Navigation Signature: Lily Shelton MA March 07, 2023 12:00 PM [facility] 03-07-2023 Note Patient Outreach (LORNE TNAV) MARKLONNIE NELSONLIAM Agustin ([id number]) 1950 F Date Time Provider Department 03/07/23 LILY SHELTON During your visit today, we recorded the following information about you: Lily Shelton MA 03/07/2023 2:27 PM Signed POPULATION HEALTH NAVIGATION OUTREACH Action/ HCC : NONE CARE GAPS BP Controlled (<130/80) Never done Mammogram Screening Never done Patient Identified by Name and : NO Outreach Outcome/Action Unable to reach patient: Left message [employer] message sent Did you use a PCP flex slot to schedule this appointment? No Reason for Outreach Care Gap or Scheduling/Wellness visits Payer: Payor: MEDICARE / Plan: MEDICARE A AND B / Product Type: Medicare / Care Gap Reviewed:: Breast Cancer screening Controlling Blood Pressure Reminder: Reminder note to check Health Maintenance for items below Health Maintenance items due: BP Controlled (<130/80) Never done Mammogram Screening Never done Navigation Signature: Lily Shelton MA March 07, 2023 12:00 PM Allergies As of Date: 03/07/2023 (No Known Allergies) Date Reviewed: 02/20/2023 Reviewed by: Taylor Vasquez LPN - Fully Assessed Reason for Visit: Population Health Navigation Outreach [3910] Cmt: ACO CARE GAPS Prescriptions as of 03/07/2023 - Cholecalciferol, Vitamin D3, 1,000 unit cap Take 2,000 Units by mouth once daily. - diclofenac, EC, (VOLTAREN) 75 mg EC tablet Take 1 tablet by mouth twice daily. For pain/inflammation. Take with food. - lisinopril (ZESTRIL) 10 mg tablet Take 1 tablet by mouth once daily. Problem List As Of Date 03/07/2023 Noted Resolved Encounter for gynecological examination without*05/06/2015 Varicose veins [I83.90] 05/06/2015 Pain in left knee [M25.562] 05/06/2015 Palpitations [R00.2] 05/06/2015 Left arm pain [M79.602] 05/06/2015 Family history of thyroid disease [Z83.49] 10/25/2016 Medicare annual wellness visit, subsequent [Z00*10/25/2016 Colon cancer screening [Z12.11] 10/25/2016 Left hip pain [M25.552] 10/25/2016 Encounter for screening for diabetes mellitus [*06/17/2019 Elevated fasting glucose [R73.01] 07/08/2019 Arthritis of both knees [M17.0] 04/29/2020 Age-related osteoporosis without current pathol*01/06/2021 Advance directive discussed with patient [Z71.8*11/23/2021 Renal cyst [N28.1] 11/26/2021 Hypertension, essential [I10] 01/16/2022 Encounter Status:Closed by LILY SHELTON on 03/07/23 [facility] 03-07-2023 History of Present illness Narrative POPULATION HEALTH NAVIGATION OUTREACH Action/FYI HCC : NONE CARE GAPS BP Controlled (<130/80) Never done Mammogram Screening Never done Patient Identified by Name and : NO Outreach Outcome/Action Unable to reach patient: Left message MyChart message sent Did you use a PCP flex slot to schedule this appointment? No Reason for Outreach Care Gap or Scheduling/Wellness visits Payer: Payor: MEDICARE / Plan: MEDICARE A AND B / Product Type: Medicare / Care Gap Reviewed:: Breast Cancer screening Controlling Blood Pressure Reminder: Reminder note to check Health Maintenance for items below Health Maintenance items due: BP Controlled (<130/80) Never done Mammogram Screening Never done Navigation Signature: Lily Shelton MA March 07, 2023 12:00 PM documented in this encounter [facility] 02-20-2023 Note HNO ID: [id number] Author: Marilyn Hair PA-C Service: ? Author Type: Physician Crawler Tractor Operator Type: Progress Notes Filed: 02/20/2023 8:52 AM Note Text: Chief Complaint Patient presents with: Recheck: Blood pressure HPI Liam Hu is a 72 year old female who presents here today for recheck. Patient's BP was elevated at last visit but she wasn't on her medication daily. She is now taking her medication daily and has been monitoring home readings. Home readings are typically in 120-130s/70s. She occasionally sees 140s/80s. But on recheck later in the day back down to 130 range. Past medical history, appointments, medications, allergies reviewed. Previous Medical History PAST MEDICAL HISTORY Diagnosis Date Age-related osteoporosis without current pathological fracture 01/06/2021 patient declines treatment beyond calcium and vit d as of 01/06/21. Repeat bone density in 2 years Arthritis of both knees 04/29/2020 Sever on right and moderate on left of medial joint spaces. Elevated fasting glucose 07/08/2019 Family history of thyroid disease 10/25/2016 Hemorrhage of rectum and anus 08/03/2005 Hypertension, essential 01/16/2022 Medicare annual wellness visit, subsequent 10/25/2016 last done: 10/25/2016 Pain in left knee 05/06/2015 Varicose veins 05/06/2015 Previous Surgical History PAST SURGICAL HISTORY Procedure Laterality Date COLONOSCOPY 2005 FECAL OCCULT BLOOD TEST 11/08/2016 negative PAST SURGICAL HISTORY OF 1977 varicose veins stripped bilateral. PAST SURGICAL HISTORY OF sclerotherapy several times PAST SURGICAL HISTORY OF 2007 anterior vaginal repair prolapse Family History FAMILY HISTORY Problem Relation Age of Onset Alzheimer's Disease Father Diabetes Paternal Grandmother Stroke Maternal Grandfather Cancer Mother smoker Thyroid Mother Patient Allergies ALLERGIES No Known Allergies Current Medications Current Outpatient Medications on File Prior to Visit Medication Sig lisinopril (ZESTRIL) 10 mg tablet Take 1 tablet by mouth once daily. meloxicam (MOBIC) 15 mg tablet Take 1 tablet by mouth once daily. Cholecalciferol, Vitamin D3, 1,000 unit cap Take 2,000 Units by mouth once daily. No current facility-administered medications on file prior to visit. Social History Social History Tobacco Use Smoking status: Never Smokeless tobacco: Never Vaping Use Vaping Use: Never used Substance Use Topics Alcohol use: Yes Comment: ocassional wine Drug use: Never Review of Symptoms REVIEW OF SYSTEMS As above EXAM: BP 150/81 (BP Site: Left Arm, BP Position: Sitting, BP Cuff Size: Regular Adult) Pulse 75 Temp 36.7 ?C (98.1 ?F) Resp 16 Wt 59 kg (130 lb) BMI 25.03 kg/m? General Appearance: Well appearing, alert, in no acute distress, well-hydrated, well nourished.. Health Maintenance List BP Controlled (<130/80) Never done Mammogram Screening Never done Shingrix Vaccine(1 of 2) due on 07/18/2023 Covid-19 Vaccine(1) due on 07/18/2023 Pneumococcal Vaccine: 65+(1 - PCV) due on 07/18/2023 Influenza Vaccine(1) due on 11/26/2023 Annual PCP Team Chronic Disease Visit due on 01/21/2024 DTaP,Tdap,Td Vaccine(2 - Td or Tdap) due on 12/01/2024 Diabetes Screening due on 01/16/2026 Lipid Screening due on 01/17/2028 Colorectal Cancer Screening due on 01/18/2028 Bone Density Screening Completed Advance Directive Discussion Completed Depression Assessment Completed Hepatitis C Screening Completed Data reviewed ASSESSMENT/PLAN: 1. Hypertension, essential - ICD9: 401.9, ICD10: I10 - Home blood pressure readings controlled - Continue current medications - Recommend home blood pressure monitoring, to bring results to next visit - Encouraged sodium restriction, DASH or Mediterranean diet - Recommend regular aerobic exercise Marilyn Hair PA-C [facility] 02-20-2023 History of Present illness Narrative Chief Complaint Patient presents with: Recheck: Blood pressure HPI Liam Hu is a 72 year old female who presents here today for recheck. Patient's BP was elevated at last visit but she wasn't on her medication daily. She is now taking her medication daily and has been monitoring home readings. Home readings are typically in 120-130s/70s. She occasionally sees 140s/80s. But on recheck later in the day back down to 130 range. Past medical history, appointments, medications, allergies reviewed. Previous Medical History PAST MEDICAL HISTORY Diagnosis Date Age-related osteoporosis without current pathological fracture 01/06/2021 patient declines treatment beyond calcium and vit d as of 01/06/21. Repeat bone density in 2 years Arthritis of both knees 04/29/2020 Sever on right and moderate on left of medial joint spaces. Elevated fasting glucose 07/08/2019 Family history of thyroid disease 10/25/2016 Hemorrhage of rectum and anus 08/03/2005 Hypertension, essential 01/16/2022 Medicare annual wellness visit, subsequent 10/25/2016 last done: 10/25/2016 Pain in left knee 05/06/2015 Varicose veins 05/06/2015 Previous Surgical History PAST SURGICAL HISTORY Procedure Laterality Date COLONOSCOPY 2005 FECAL OCCULT BLOOD TEST 11/08/2016 negative PAST SURGICAL HISTORY OF 1977 varicose veins stripped bilateral. PAST SURGICAL HISTORY OF sclerotherapy several times PAST SURGICAL HISTORY OF 2007 anterior vaginal repair prolapse Family History FAMILY HISTORY Problem Relation Age of Onset Alzheimer's Disease Father Diabetes Paternal Grandmother Stroke Maternal Grandfather Cancer Mother smoker Thyroid Mother Patient Allergies ALLERGIES No Known Allergies Current Medications Current Outpatient Medications on File Prior to Visit Medication Sig lisinopril (ZESTRIL) 10 mg tablet Take 1 tablet by mouth once daily. meloxicam (MOBIC) 15 mg tablet Take 1 tablet by mouth once daily. Cholecalciferol, Vitamin D3, 1,000 unit cap Take 2,000 Units by mouth once daily. No current facility-administered medications on file prior to visit. Social History Social History Tobacco Use Smoking status: Never Smokeless tobacco: Never Vaping Use Vaping Use: Never used Substance Use Topics Alcohol use: Yes Comment: ocassional wine Drug use: Never Review of Symptoms REVIEW OF SYSTEMS As above EXAM: BP 150/81 (BP Site: Left Arm, BP Position: Sitting, BP Cuff Size: Regular Adult) Pulse 75 Temp 36.7 C (98.1 F) Resp 16 Wt 59 kg (130 lb) BMI 25.03 kg/m General Appearance: Well appearing, alert, in no acute distress, well-hydrated, well nourished.. Health Maintenance List BP Controlled (<130/80) Never done Mammogram Screening Never done Shingrix Vaccine(1 of 2) due on 07/18/2023 Covid-19 Vaccine(1) due on 07/18/2023 Pneumococcal Vaccine: 65+(1 - PCV) due on 07/18/2023 Influenza Vaccine(1) due on 11/26/2023 Annual PCP Team Chronic Disease Visit due on 01/21/2024 DTaP,Tdap,Td Vaccine(2 - Td or Tdap) due on 12/01/2024 Diabetes Screening due on 01/16/2026 Lipid Screening due on 01/17/2028 Colorectal Cancer Screening due on 01/18/2028 Bone Density Screening Completed Advance Directive Discussion Completed Depression Assessment Completed Hepatitis C Screening Completed Data reviewed ASSESSMENT/PLAN: 1. Hypertension, essential - ICD9: 401.9, ICD10: I10 - Home blood pressure readings controlled - Continue current medications - Recommend home blood pressure monitoring, to bring results to next visit - Encouraged sodium restriction, DASH or Mediterranean diet - Recommend regular aerobic exercise Marilyn Hair PA-C documented in this encounter [facility] 02-02-2023 Miscellaneous Notes Pt notified of Marilyn's message and instructions. Pt verbalizes understanding. F/u appointment scheduled at this time. Pt will begin recording readings today and will bring readings to ov with her. Taylor Vasquez LPN At our last visit she wasn't taking her BP medications consistently. I agreed to let her monitor at home once she got back to taking her medications daily. She needs to be consistent with her BP medications and schedule a 2 week follow up for BP check. She needs to bring in her BP readings to that visit so we can discuss. Marilyn Hair PA-C Patient returns call and reports that she has been taking BP but didn't realize we wanted her to write anything down. Patient took BP reading while on phone. Patient reports that prior to call she was vacuuming. First readin/97 Second reading 138/86 Patient reports that readings are usually that or lower but she didn't have any others to give. Patient reports that she takes lisinopril 10 mg daily at noon but sometimes does forget. Asking if she should maybe take medication in the morning? Ciara Rhodes RN Left message to call office. 02/02/2023 8:21 AM. Jonelle Casanova LPN Please ask patient for her home BP readings documented in this encounter [facility] 01-20-2023 Note HNO ID: [id number] Author: Marilyn Hair PA-C Service: ? Author Type: Physician Crawler Tractor Operator Type: Progress Notes Filed: 01/20/2023 10:20 AM Note Text: Medicare Yearly Visit Medical B eligibilty date 07/28/15 Date of last exam 11/23/21 PAST MEDICAL HISTORY Diagnosis Date Age-related osteoporosis without current pathological fracture 01/06/2021 patient declines treatment beyond calcium and vit d as of 01/06/21. Repeat bone density in 2 years Arthritis of both knees 04/29/2020 Sever on right and moderate on left of medial joint spaces. Elevated fasting glucose 07/08/2019 Family history of thyroid disease 10/25/2016 Hemorrhage of rectum and anus 08/03/2005 Hypertension, essential 01/16/2022 Medicare annual wellness visit, subsequent 10/25/2016 last done: 10/25/2016 Pain in left knee 05/06/2015 Varicose veins 05/06/2015 PAST SURGICAL HISTORY Procedure Laterality Date COLONOSCOPY 2005 FECAL OCCULT BLOOD TEST 11/08/2016 negative PAST SURGICAL HISTORY OF 1977 varicose veins stripped bilateral. PAST SURGICAL HISTORY OF sclerotherapy several times PAST SURGICAL HISTORY OF 2007 anterior vaginal repair prolapse ALLERGIES: Patient has no known allergies. Medications reviewed: Yes FAMILY HISTORY Problem Relation Age of Onset Alzheimer's Disease Father Diabetes Paternal Grandmother Stroke Maternal Grandfather Cancer Mother smoker Thyroid Mother SOCIAL HISTORY: Social History Tobacco Use Smoking status: Never Smokeless tobacco: Never Vaping Use Vaping Use: Never used Substance Use Topics Alcohol use: Yes Comment: ocassional wine Drug use: Never Liam likes to exercise by walking and and staying active. She watches her diet for sodium, low fat and low cholesterol most of the time. List of current specialists seen: Dentist opto End of Live Planning discussed including patients advanced directive wishes: Yes I am willing to follow Liam's advanced directives. Depression Screening 10/25/2016 11/23/2021 07/18/2022 01/20/2023 PHQ-2 Score 0 0 0 0 Depression screening tool completed and reviewed. Based on score and interview, patient is not at risk for depression. Screening tool discussed with patient, and I recommended no further intervention at this time. Functional Ability/Safety Screen 1. Was the patient's timed Up and Go test unsteady or longer than 30 seconds? No 2. Does the patient need help with the phone, transportation, shopping,preparing meals, housework, laundry, medications or managing money? No 3. Does your home have rugs in the hallway, lack of grab bars in the bathroom (Y), lack of handrails on the stairs or have poor lighting? No Hearing Evaluation: normal PHYSICAL EXAM BP 148/96 (BP Site: Right Arm, BP Position: Sitting, BP Cuff Size: Regular Adult) Pulse 75 Temp 36.2 ?C (97.2 ?F) Resp 16 Wt 58.5 kg (129 lb) BMI 24.83 kg/m? Alert and oriented X 3: YES Body mass index is 24.83 kg/m?. Visual acuity: sees opto ASSESSMENT/PLAN: 72 year old female The following prevention plan was discussed during the office visit and provided to the patient: See below. Marilyn Hair PA-C Chief Complaint Patient presents with: Medicare Wellness Exam HPI Liam Hu is a 72 year old female who presents here today for extensive exam. Patient with hx of HTN, elevated glucose, osteoporosis, and those as reviewed below. Patient overall doing well. Denies specific concerns/complaints today. Had her colonoscopy completed last week. Was told it looked okay. Patient admits that she only sometimes takes her BP medication. Home readings systolic run 140-150/? States she thought she wouldn't need the medication since she retired. Last 3 Encounter BP Readings: Date: BP: 01/20/2023 148/96 11/10/2022 120/78 08/23/2022 110/78 Past medical history, appointments, medications, allergies reviewed. Previous Medical History PAST MEDICAL HISTORY Diagnosis Date Age-related osteoporosis without current pathological fracture 01/06/2021 patient declines treatment beyond calcium and vit d as of 01/06/21. Repeat bone density in 2 years Arthritis of both knees 04/29/2020 Sever on right and moderate on left of medial joint spaces. Elevated fasting glucose 07/08/2019 Family history of thyroid disease 10/25/2016 Hemorrhage of rectum and anus 08/03/2005 Hypertension, essential 01/16/2022 Medicare annual wellness visit, subsequent 10/25/2016 last done: 10/25/2016 Pain in left knee 05/06/2015 Varicose veins 05/06/2015 Previous Surgical History PAST SURGICAL HISTORY Procedure Laterality Date COLONOSCOPY 2005 FECAL OCCULT BLOOD TEST 11/08/2016 negative PAST SURGICAL HISTORY OF 1977 varicose veins stripped bilateral. PAST SURGICAL HISTORY OF sclerotherapy several times PAST SURGICAL HISTORY OF 2007 anterior vaginal repair prolapse Family History FAMILY HISTORY Problem Relation Age of Onset (more content not included)... [facility] 01-20-2023 Instructions Marilyn Hair PA-C - 01/20/2023 8:31 AM EDT BONE MINERAL DENSITY PATIENT INSTRUCTIONS ========= Bone mineral density testing measures the amount of calcium in certain parts of your bones. This information determines how strong your bones are. The test is used to detect osteoporosis, a disease in which the bone's mineral content and density are low, increasing a person's risk of fractures. The lumbar spine (lower back) and the hip are the skeletal sites usually examined. For the test, remember that: 1. You cannot take this test if you are . 2. Eat a normal diet on the day of the test. 3. Take your medications as you normally would. 4. DO NOT take calcium supplements (such as Tums) for 24 hours before the test. 5. On the day of the test, leave valuables (jewelry or credit cards) at home. 6. The test should be performed prior to oral, rectal or IV contrast studies, or at least 7 days after any of these studies. For the test, you may be asked to wear a hospital gown. You will lie on your back, on a padded table, in a comfortable position. Generally, you can resume your usual activities immediately. documented in this encounter [facility] 01-20-2023 History of Present illness Narrative Medicare Yearly Visit Medical B eligibilty date 07/28/15 Date of last exam 11/23/21 PAST MEDICAL HISTORY Diagnosis Date Age-related osteoporosis without current pathological fracture 01/06/2021 patient declines treatment beyond calcium and vit d as of 01/06/21. Repeat bone density in 2 years Arthritis of both knees 04/29/2020 Sever on right and moderate on left of medial joint spaces. Elevated fasting glucose 07/08/2019 Family history of thyroid disease 10/25/2016 Hemorrhage of rectum and anus 08/03/2005 Hypertension, essential 01/16/2022 Medicare annual wellness visit, subsequent 10/25/2016 last done: 10/25/2016 Pain in left knee 05/06/2015 Varicose veins 05/06/2015 PAST SURGICAL HISTORY Procedure Laterality Date COLONOSCOPY 2005 FECAL OCCULT BLOOD TEST 11/08/2016 negative PAST SURGICAL HISTORY OF 1977 varicose veins stripped bilateral. PAST SURGICAL HISTORY OF sclerotherapy several times PAST SURGICAL HISTORY OF 2007 anterior vaginal repair prolapse ALLERGIES: Patient has no known allergies. Medications reviewed: Yes FAMILY HISTORY Problem Relation Age of Onset Alzheimer's Disease Father Diabetes Paternal Grandmother Stroke Maternal Grandfather Cancer Mother smoker Thyroid Mother SOCIAL HISTORY: Social History Tobacco Use Smoking status: Never Smokeless tobacco: Never Vaping Use Vaping Use: Never used Substance Use Topics Alcohol use: Yes Comment: ocassional wine Drug use: Never Liam likes to exercise by walking and and staying active. She watches her diet for sodium, low fat and low cholesterol most of the time. List of current specialists seen: Dentist opto End of Live Planning discussed including patients advanced directive wishes: Yes I am willing to follow Liam's advanced directives. Depression Screening 10/25/2016 11/23/2021 07/18/2022 01/20/2023 PHQ-2 Score 0 0 0 0 Depression screening tool completed and reviewed. Based on score and interview, patient is not at risk for depression. Screening tool discussed with patient, and I recommended no further intervention at this time. Functional Ability/Safety Screen 1. Was the patient's timed Up and Go test unsteady or longer than 30 seconds? No 2. Does the patient need help with the phone, transportation, shopping,preparing meals, housework, laundry, medications or managing money? No 3. Does your home have rugs in the hallway, lack of grab bars in the bathroom (Y), lack of handrails on the stairs or have poor lighting? No Hearing Evaluation: normal PHYSICAL EXAM BP 148/96 (BP Site: Right Arm, BP Position: Sitting, BP Cuff Size: Regular Adult) Pulse 75 Temp 36.2 C (97.2 F) Resp 16 Wt 58.5 kg (129 lb) BMI 24.83 kg/m Alert and oriented X 3: YES Body mass index is 24.83 kg/m . Visual acuity: sees opto ASSESSMENT/PLAN: 72 year old female The following prevention plan was discussed during the office visit and provided to the patient: See below. Marilyn Hair PA-C Chief Complaint Patient presents with: Medicare Wellness Exam HPI Liam Hu is a 72 year old female who presents here today for extensive exam. Patient with hx of HTN, elevated glucose, osteoporosis, and those as reviewed below. Patient overall doing well. Denies specific concerns/complaints today. Had her colonoscopy completed last week. Was told it looked okay. Patient admits that she only sometimes takes her BP medication. Home readings systolic run 140-150/? States she thought she wouldn't need the medication since she retired. Last 3 Encounter BP Readings: Date: BP: 01/20/2023 148/96 11/10/2022 120/78 08/23/2022 110/78 Past medical history, appointments, medications, allergies reviewed. Previous Medical History PAST MEDICAL HISTORY Diagnosis Date Age-related osteoporosis without current pathological fracture 01/06/2021 patient declines treatment beyond calcium and vit d as of 01/06/21. Repeat bone density in 2 years Arthritis of both knees 04/29/2020 Sever on right and moderate on left of medial joint spaces. Elevated fasting glucose 07/08/2019 Family history of thyroid disease 10/25/2016 Hemorrhage of rectum and anus 08/03/2005 Hypertension, essential 01/16/2022 Medicare annual wellness visit, subsequent 10/25/2016 last done: 10/25/2016 Pain in left knee 05/06/2015 Varicose veins 05/06/2015 Previous Surgical History PAST SURGICAL HISTORY Procedure Laterality Date COLONOSCOPY 2005 FECAL OCCULT BLOOD TEST 11/08/2016 negative PAST SURGICAL HISTORY OF 1977 varicose veins stripped bilateral. PAST SURGICAL HISTORY OF sclerotherapy several times PAST SURGICAL HISTORY OF 2007 anterior vaginal repair prolapse Family History FAMILY HISTORY Problem Relation Age of Onset Alzheimer's Disease Father Diabetes Paternal Grandmother Stroke Maternal Grandfather Cancer Mother smoker Thyroid Mother Patient Allergies ALLERGIES No Known Allergies Current Medications Current Outpatient Medications on File Prior to Visit Medication Sig meloxicam (MOBIC) 15 mg tablet Take 1 tablet by mouth once daily. lisinopril (ZESTRIL) 10 mg tablet Take 1 tablet by mouth once daily. Cholecalciferol, Vitamin D3, 1,000 unit cap Take 2,000 Units by mouth once daily. Benzonatate 200 mg capsule Take 1 capsule by mouth three times daily as needed. (Patient not taking: Reported on 11/10/2022) fluticasone (FLONASE) 50 mcg/actuation nasal spray Use 2 Sprays in each nostril once daily. Rinse mouth after use. (Patient not taking: Reported on 11/10/2022) No current facility-administered medications on file prior to visit. Social History Social History Tobacco Use Smoking status: Never Smokeless tobacco: Never Vaping Use Vaping Use: Never used Substance Use Topics Alcohol use: Yes Comment: ocassional wine Drug use: Never Review of Symptoms REVIEW OF SYSTEMS GENERAL: No weight loss, malaise or fevers HEENT: No changes in hearing or vision, no nose bleeds or other nasal problems NECK: Negative for lumps, goiter, pain and significant neck swelling RESPIRATORY: Negative for cough, hemoptysis, wheezing, COPD, dyspnea or shortness of breath CARDIOVASCULAR: Negative for chest pain, leg swelling, CHF or palpitations GI: Negative for abdominal discomfort, blood in stools or black stools, change in bowel habit, heart burn, nausea, vomiting : No history of dysuria, frequency or incontinence QUALITY ASSURANCE PROJECT MANAGER: Negative for abnormal vaginal bleeding, abnormal vaginal discharge MUSCULOSKELETAL: Negative for joint pain or swelling, back pain or muscle pain SKIN: Negative for lesions, rash, and itching PSYCH: Negative for sleep disturbance, mood disorder and recent psychosocial stressors HEMATOLOGY/LYMPHOLOGY: Negative for prolonged bleeding, bruising easily or swollen nodes ENDOCRINE: Negative for cold or heat intolerance, polyuria, polydipsia and goiter NEURO: No history of headaches, syncope, paralysis, seizures or tremors EXAM: BP 148/96 (BP Site: Right Arm, BP Position: Sitting, BP Cuff Size: Regular Adult) Pulse 75 Temp 36.2 C (97.2 F) Resp 16 Wt 58.5 kg (129 lb) BMI 24.83 kg/m BP 161/86 (BP Site: Right Arm, BP Position: Sitting, BP Cuff Size: Regular Adult) Pulse 73 Temp 36.2 C (97.2 F) Resp 16 Wt 58.5 kg (129 lb) BMI 24.83 kg/m General Appearance: Well appearing, alert, in no acute distress, well-hydrated, well nourished.. Skin: Skin color, texture, turgor normal, no suspicious rashes or lesions. Head: Normocephalic, no masses, lesions, tenderness or abnormalities. Eyes: Anicteric sclera. Pupils are equally round and reactive to light. Extraocular movements are intact. . Ears: External ears normal, canals clear. Nose/Sinuses: Nares normal, septum midline, mucosa normal, no drainage or sinus tenderness. Oropharynx: Lips, mucosa, and tongue normal, teeth and gums normal, oropharynx normal. Neck: Supple, no adenopathy; thyroid symmetric, normal size, no bruits. Lungs: Lungs clear to auscultation. No wheezing, rhonchi, rales.. Heart: RRR without murmur, gallop, or rubs. No ectopy. Abdomen: Normal abdominal exam, Abdomen soft, non-tender. Bowel sounds normal. No masses, organomegaly. Extremities: No deformities, edema, skin discoloration, clubbing or cyanosis. Good capillary refill. . Peripheral Pulses: Normal. Neurologic: Gait normal. Reflexes normal and symmetric. Sensation grossly intact.. Health Maintenance List MAMMOGRAM Never done ADVANCE DIRECTIVE DISCUSSION due on 05/29/2022 COLORECTAL CANCER SCREENING due on 09/01/2022 SHINGRIX VACCINE(1 of 2) due on 07/18/2023 COVID-19 VACCINE(1) due on 07/18/2023 PNEUMOCOCCAL: 65+(1 - PCV) due on 07/18/2023 INFLUENZA(1) due on 01/27/2023 ANNUAL PCP TEAM CHRONIC DISEASE VISIT due on 11/11/2023 BP CONTROLLED (<130/80) due on 11/11/2023 DTAP,TDAP,TD(2 - Td or Tdap) due on 12/01/2024 DIABETES SCREEN due on 01/16/2026 LIPID SCREEN due on 01/17/2028 BONE DENSITY Completed DEPRESSION ASSESSMENT Completed HEPATITIS C SCREENING Completed Data reviewed Component Latest Ref Rng & Units 01/16/2023 Color Yellow Yellow Clarity Clear Clear Glucose, Urine Trace, Negative Negative Bilirubin, Urine Negative Negative Ketones, Urine Trace, Negative Negative Specific Watts, Ur 1.005 - 1.030 1.027 Hemoglobin/Blood,Ur Negative, Trace Negative pH, Urine 5.0 - 8.0 5.5 Protein, Urine Trace, Negative Negative Urobilinogen Negative Negative Nitrites Negative Negative Leukest Negative, 25 Michael/uL 250 Michael/uL (A) WBC, Urine 0-5 /HPF 0-5 /HPF RBC, Urine 0-3 /HPF 0-3 /HPF Epithelial Cells /HPF Few Non-Squamous Epithelial Cells None Seen /HPF Few (A) Calcium Oxalate Crystals None Seen /HPF Few (A) Protein, Total 6.3 - 8.0 g/dL 6.7 Albumin 3.9 - 4.9 g/dL 4.2 Calcium 8.5 - 10.2 mg/dL 10.1 Bilirubin, Total 0.2 - 1.3 mg/dL 0.7 Alkaline Phosphatase 34 - 123 U/L 79 AST 13 - 35 U/L 36 (H) ALT 7 - 38 U/L 37 Glucose 74 - 99 mg/dL 102 (H) BUN 7 - 21 mg/dL 21 Creatinine 0.58 - 0.96 mg/dL 0.68 Sodium 136 - 144 mmol/L 142 Potassium 3.7 - 5.1 mmol/L 3.9 Chloride 97 - 105 mmol/L 107 (H) CO2 22 - 30 mmol/L 25 Anion Gap 9 - 18 mmol/L 10 eGFR >=60 mL/min/1.73m 93 Total Cholesterol, Nonfasting <200 mg/dL 219 (H) Triglycerides, Nonfasting <150 mg/dL 280 (H) HDL Cholesterol, Nonfasting >39 mg/dL 36 (L) LDL Cholesterol, Nonfasting <100 mg/dL 127 (H) Non HDL Cholesterol, Nonfasting <130 mg/dL 183 (H) VLDL Cholesterol, Nonfasting <30 mg/dL 56 (H) Total Chol/HDL Ratio, Nonfasting <5.10 mg/dL 6.08 (H) LDL/HDL Ratio, Nonfasting <2.54 mg/dL 3.53 (H) Hemoglobin A1C 4.3 - 5.6 % 5.6 Estimated Average Glucose mg/dL 114 ASSESSMENT/PLAN: 1. Medicare annual wellness visit, subsequent - ICD9: V70.0, ICD10: Z00.00 (primary diagnosis) - Counseled on healthy diet and regular exercise - Calcium intake with supplements or by diet of 1000 mg/day for under 50, 7219-6860 mg/day for 50+ 2. Advance directive discussed with patient - ICD9: V65.49, ICD10: Z71.89 Paperwork given 3. Hypertension, essential - ICD9: 401.9, ICD10: I10 - Uncontrolled - Factors affecting control: pill burden/not taking medication - patient advised to take her bp meds daily. Will update me with home readings in 2 weeks. - Recommend home blood pressure monitoring, to bring results to next visit - Encouraged sodium restriction, DASH or Mediterranean diet - Recommend regular aerobic exercise - COMP METABOLIC PANEL 4. Hyperlipidemia, mixed - ICD9: 272.2, ICD10: E78.2 - mildly elevated. - Counseled on healthy diet and regular exercise - Discussed need for and benefit of weight loss. BMI 24.83 kg/(m^2) - consider fish oil. - LIPID PANEL, NONFASTING 5. Elevated fasting glucose - ICD9: 790.21, ICD10: R73.01 - COMP METABOLIC PANEL - HGB A1C 6. Age-related osteoporosis without current pathological fracture - ICD9: 733.01, ICD10: M81.0 - set up for BMD AP Spine and Hip Unilateral - Reviewed the need for Calcium and Vitamin D supplements and weight bearing exercise as tolerated - DXA-AXIAL SKELETON - VITAMIN D 25 HYDROXY 7. Family history of thyroid disease - ICD9: V18.19, ICD10: Z83.49 - TSH BLD Marilyn Hair PA-C documented in this encounter [facility] 12-21-2022 Note HNO ID: [id number] Author: Miesha Jefferson PA-C Service: ? Author Type: Physician Crawler Tractor Operator Type: Progress Notes Filed: 12/26/2022 8:35 AM Note Text: Miesha Jefferson PA-C Department of Orthopaedics Orthopaedics [address] [facility] [address] Dept: [phone] Dept December 21, 2022 CHIEF COMPLAINT: Established Patient and Knee Pain of the Left Knee Ms. Liam Hu is a 72 year old female who presents with continued left knee pain. Pain is a 6 out of 10 aching which has been bothering her for several years. She seems most bothered by the fact that she is unable to fully straighten her leg when she walks and therefore has a little bit of a limp . She has oral diclofenac which she does find beneficial but she admits that she is not very diligent about taking the medication. She is not interested in trying corticosteroid injections and she said that she is not ready for surgery. She recently retired from the [employer]. She is very active and enjoys visiting with friends. ASSESSMENT: M17.12 Primary osteoarthritis of left knee (primary encounter diagnosis) PLAN: We discussed potentially trying a different oral anti-inflammatory, she was given 15 mg meloxicam to take instead of the diclofenac. Since it is a once a day medication I wonder if it will be easier for her to be more compliant with versus the diclofenac which is a twice a day prescription. We discussed that she can follow-up at any time and we can try corticosteroid injection. We briefly discussed the course for surgical recovery. Ms. Liam Hu was advised as to contrast therapies and/or to take analgesics/anti-inflammatories as needed and all contraindications were reviewed. OBJECTIVE: Ms. Liam Hu is a pleasant 72 year old in no apparent distress. Gen:There were no vitals taken for this visit. nl development, non obese, no deformities ENT: Normocephalic, normal hearing, moist mucosa CV: Pulses:DP/PT= 2+ and symmetric, capillary refill < 2 secs, no peripheral edema/varicosities Skin: no rash, bruising or lesions. Good turgor. Psych: cooperative and appropriate, alert and oriented x 3, good mood and affect. Musculoskeletal: KNEE EXAM: Left: Alignment: Varus deformity, Partially Correctable Range of motion is 5 degrees in extension and 120 degrees of flexion. Extension La degrees Pain with ROM: Yes Effusion: Slight Tender to the palpation of Medial femoral condyle and Medial joint line Pain with patellar compression: No Stability: Anterior/Posterior stable and Varus/Valgus stable Hip Exam: flexion to 100+ degrees, full extension, internal/external rotation adequate, and no pain with log roll Neurovascular Status: Sensation Intact, Moves foot and ankle up AND down, and 2+ dorsalis pedis Imaging: * * *Final Report* * * DATE OF EXAM: Dec 21 2022 10:25AM [id number] - XR KNEE 4V AP/PA/LAT/MERCH EYAL / PROCEDURE REASON: multiple diagnoses * * * * Physician Interpretation * * * * EXAM(s): XR KNEE 4V AP/PA/LAT/MERCH EYAL EXAM DATE/TIME: 12/21/2022 10:25 AM HISTORY: 72 years old Clinical information: Pain in both knees, unspecified chronicity Pain in both knees, unspecified chronicity Chronic medial left knee pain increasing over time without injury TECHNIQUE: Images: XR KNEE 4V AP/PA/LAT/MERCH EYAL Comparison: 09/27/2021 RESULT: Findings: Right :No fractures or dislocations are seen. Marked narrowing of the medial compartment. Moderate narrowing of the patellofemoral joint Left :No fractures or dislocations are seen. Severe narrowing of the medial compartment IMPRESSION IMPRESSION: Degenerative changes as discussed Cooker Pie Filling: ASHLEY Transcribe Date/Time: Dec 25 2022 9:21A Dictated by : GRACE CORTES DO This examination was interpreted and the report reviewed and electronically signed by: GRACE CORTES DO on Dec 25 2022 9:22AM EST Supporting Subjective Information Below: Past Surgical History: PAST SURGICAL HISTORY Procedure Laterality Date COLONOSCOPY 2006 FECAL OCCULT BLOOD TEST 11/08/2016 negative PAST SURGICAL HISTORY OF 1977 varicose veins stripped bilateral. PAST SURGICAL HISTORY OF sclerotherapy several times PAST SURGICAL HISTORY OF 2007 anterior vaginal repair prolapse Medications: Current Outpatient Medications Medication Sig Cholecalciferol, Vitamin D3, 1,000 unit cap Take 2,000 Units by mouth once daily. meloxicam (MOBIC) 15 mg tablet Take 1 tablet by mouth once daily. Benzonatate 200 mg capsule Take 1 capsule by mouth three times daily as needed. (Patient not taking: Reported on 11/10/2022) lisinopril (ZESTRIL) 10 mg tablet Take 1 tablet by mouth once daily. (Patient not taking: Reported on 12/21/2022) fluticasone (FLONASE) 50 mcg/actuation nasal spray Use 2 Sprays in each nostril once daily. Rinse mouth after use. (Patien (more content not included)... [facility] 12-21-2022 Note HNO ID: [id number] Author: Yin Gramajo RN Service: ? Author Type: ? Type: Progress Notes Filed: 12/26/2022 8:35 AM Note Text: AMB ROOMING INTAKE FLOWSHEET DATA Pain Pain Level: 6 Pain Location: Knee-Left Description: Sharp, Aching Duration Amount of Time: 1 Duration Units: Years Frequency: Intermittent Intervention/Comfort measure: Reposition, Relaxation, Medication Patient presents with: Left Knee - Established Patient, Knee Pain Patient is here to follow up on L knee pain. Was last seen on 09/27/21. Patient states pain is getting worse, keeping her from activity. She takes diclofenac for pain. Has a new XR completed today to review. [facility] 12-21-2022 Note HNO ID: [id number] Author: Catie Munoz RT(R) Service: Radiology Author Type: Technologist Type: Progress Notes Filed: 12/21/2022 10:26 AM Note Text: Radiology Service Progress Note PATIENT NAME: Liam Hu DATE OF SERVICE: December 21, 2022 TIME: 10:07 AM PATIENT IDENTITY VERIFICATION COMPLETED USING TWO (2) IDENTIFIERS: Name and Date of confirmed by patient verbally. FALL SCREENING: Has the patient had 2 falls in the last year or 1 fall with injury or currently using an Ambulatory Assistive Device (Walker, Cane, Wheelchair, Crutches, etc.)? No PATIENT GENDER DATA: Female. status: : No status: NO. PATIENT RELEVANT IMPLANT DATA REVIEWED: Yes RADIOLOGY DEPARTMENT: General X-ray: Exam(s) Completed: Lower Extremity X-Ray(s): Knee, AP / Lat / Tunne / Merchant Bilateral and Wt. Bearing PERIPHERAL IV DATA: Not applicable SIGNED BY: RT Stefania(R) December 21, 2022 10:07 AM [facility] 12-21-2022 History of Present illness Narrative Miesha Jefferson PA-C Department of Orthopaedics Orthopaedics [address] [facility] [address] Dept: [phone] Dept December 21, 2022 CHIEF COMPLAINT: Established Patient and Knee Pain of the Left Knee Ms. Liam Hu is a 72 year old female who presents with continued left knee pain. Pain is a 6 out of 10 aching which has been bothering her for several years. She seems most bothered by the fact that she is unable to fully straighten her leg when she walks and therefore has a little bit of a limp . She has oral diclofenac which she does find beneficial but she admits that she is not very diligent about taking the medication. She is not interested in trying corticosteroid injections and she said that she is not ready for surgery. 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 She is very active and enjoys visiting with friends. ASSESSMENT: M17.12 Primary osteoarthritis of left knee (primary encounter diagnosis) PLAN: We discussed potentially trying a different oral anti-inflammatory, she was given 15 mg meloxicam to take instead of the diclofenac. Since it is a once a day medication I wonder if it will be easier for her to be more compliant with versus the diclofenac which is a twice a day prescription. We discussed that she can follow-up at any time and we can try corticosteroid injection. We briefly discussed the course for surgical recovery. Ms. Liam Hu was advised as to contrast therapies and/or to take analgesics/anti-inflammatories as needed and all contraindications were reviewed. OBJECTIVE: Ms. Liam Hu is a pleasant 72 year old in no apparent distress. Gen:There were no vitals taken for this visit. nl development, non obese, no deformities ENT: Normocephalic, normal hearing, moist mucosa CV: Pulses:DP/PT= 2+ and symmetric, capillary refill < 2 secs, no peripheral edema/varicosities Skin: no rash, bruising or lesions. Good turgor. Psych: cooperative and appropriate, alert and oriented x 3, good mood and affect. Musculoskeletal: KNEE EXAM: Left: Alignment: Varus deformity, Partially Correctable Range of motion is 5 degrees in extension and 120 degrees of flexion. Extension La degrees Pain with ROM: Yes Effusion: Slight Tender to the palpation of Medial femoral condyle and Medial joint line Pain with patellar compression: No Stability: Anterior/Posterior stable and Varus/Valgus stable Hip Exam: flexion to 100+ degrees, full extension, internal/external rotation adequate, and no pain with log roll Neurovascular Status: Sensation Intact, Moves foot and ankle up & down, and 2+ dorsalis pedis Imaging: * * *Final Report* * * DATE OF EXAM: Dec 21 2022 10:25AM WRX [id number] - XR KNEE 4V AP/PA/LAT/MERCH EYAL / PROCEDURE REASON: multiple diagnoses * * * * Physician Interpretation * * * * EXAM(s): XR KNEE 4V AP/PA/LAT/MERCH EYAL EXAM DATE/TIME: 12/21/2022 10:25 AM HISTORY: 72 years old Clinical information: Pain in both knees, unspecified chronicity Pain in both knees, unspecified chronicity Chronic medial left knee pain increasing over time without injury TECHNIQUE: Images: XR KNEE 4V AP/PA/LAT/MERCH EYAL Comparison: 09/27/2021 RESULT: Findings: Right :No fractures or dislocations are seen. Marked narrowing of the medial compartment. Moderate narrowing of the patellofemoral joint Left :No fractures or dislocations are seen. Severe narrowing of the medial compartment IMPRESSION IMPRESSION: Degenerative changes as discussed Cooker Pie Filling: ASHLEY Transcribe Date/Time: Dec 25 2022 9:21A Dictated by : GRACE CORTES DO This examination was interpreted and the report reviewed and electronically signed by: GRACE CORTES DO on Dec 25 2022 9:22AM EST Supporting Subjective Information Below: Past Surgical History: PAST SURGICAL HISTORY Procedure Laterality Date COLONOSCOPY 2006 FECAL OCCULT BLOOD TEST 11/08/2016 negative PAST SURGICAL HISTORY OF 1977 varicose veins stripped bilateral. PAST SURGICAL HISTORY OF sclerotherapy several times PAST SURGICAL HISTORY OF 2007 anterior vaginal repair prolapse Medications: Current Outpatient Medications Medication Sig Cholecalciferol, Vitamin D3, 1,000 unit cap Take 2,000 Units by mouth once daily. meloxicam (MOBIC) 15 mg tablet Take 1 tablet by mouth once daily. Benzonatate 200 mg capsule Take 1 capsule by mouth three times daily as needed. (Patient not taking: Reported on 11/10/2022) lisinopril (ZESTRIL) 10 mg tablet Take 1 tablet by mouth once daily. (Patient not taking: Reported on 12/21/2022) fluticasone (FLONASE) 50 mcg/actuation nasal spray Use 2 Sprays in each nostril once daily. Rinse mouth after use. (Patient not taking: Reported on 11/10/2022) No current facility-administered medications for this visit. Allergies: Patient has no known allergies. ROS: General (negative for fatigue, malaise, weight loss/gain) HEENT (negative for headache, earache, recent vision changes, sinus pain, sore throat) Respiratory (no recent shortness of breath, hemoptysis) CV (negative for chest tightness, palpitations) Musculoskeletal (see HPI) Psych (no depression, anxiety) This note was partially generated using [employer] voice recognition system, and there may be some incorrect words, spellings, and punctuation that were not noted in checking the note before saving. Miesha Jefferson PA-C AMB ROOMING INTAKE FLOWSHEET DATA Pain Pain Level: 6 Pain Location: Knee-Left Description: Sharp, Aching Duration Amount of Time: 1 Duration Units: Years Frequency: Intermittent Intervention/Comfort measure: Reposition, Relaxation, Medication Patient presents with: Left Knee - Established Patient, Knee Pain Patient is here to follow up on L knee pain. Was last seen on 09/27/21. Patient states pain is getting worse, keeping her from activity. She takes diclofenac for pain. Has a new XR completed today to review. documented in this encounter [facility] 12-21-2022 History of Present illness Narrative Radiology Service Progress Note PATIENT NAME: Laim Hu DATE OF SERVICE: December 21, 2022 TIME: 10:07 AM PATIENT IDENTITY VERIFICATION COMPLETED USING TWO (2) IDENTIFIERS: Name and Date of confirmed by patient verbally. FALL SCREENING: Has the patient had 2 falls in the last year or 1 fall with injury or currently using an Ambulatory Assistive Device (Walker, Cane, Wheelchair, Crutches, etc.)? No PATIENT GENDER DATA: Female. status: : No status: NO. PATIENT RELEVANT IMPLANT DATA REVIEWED: Yes RADIOLOGY DEPARTMENT: General X-ray: Exam(s) Completed: Lower Extremity X-Ray(s): Knee, AP / Lat / Tunne / Merchant Bilateral and Wt. Bearing PERIPHERAL IV DATA: Not applicable SIGNED BY: RT Stefania(R) December 21, 2022 10:07 AM documented in this encounter [facility] 12-09-2022 Miscellaneous Notes Pt called and is notified of providers message and instructions. Pt voices understanding. Christine Lanza RN Left message for pt to contact office. Taylor Vasquez LPN Let patient know labs and urine test placed that she can do about a week prior to her visit. Pt called in about scheduling Medicare wellness. Pt was already scheduled for 01/20/23. Pt was asking about labs and states her liver enzymes have been off. Please call Pt once labs have been placed. documented in this encounter [facility] 11-10-2022 Note HNO ID: [id number] Author: Rafaela Washington APRN.ORACLE [address] SQL DEVELOPER Service: ? Author Type: Nurse Practitioner Type: Progress Notes Filed: 11/10/2022 11:04 AM Note Text: Chief Complaint Patient presents with: Sinusitis: Pressure, headache, dizziness since [place] HPI Liam Hu is a 72 year old female who presents here today for Above Complaints.. Patient presents for sinus headache and sinus pressure. Patient reports post nasal drainage that started worsening on Monday. Patient reports she takes claritin as needed. Past medical history, appointments, medications, allergies reviewed. Previous Medical History PAST MEDICAL HISTORY Diagnosis Date Arthritis of both knees 04/29/2020 Sever on right and moderate on left of medial joint spaces. Elevated fasting glucose 07/08/2019 Family history of thyroid disease 10/25/2016 Hemorrhage of rectum and anus 08/03/2005 Hypertension, essential 01/16/2022 Medicare annual wellness visit, subsequent 10/25/2016 last done: 10/25/2016 Pain in left knee 05/06/2015 Varicose veins 05/06/2015 Previous Surgical History PAST SURGICAL HISTORY Procedure Laterality Date COLONOSCOPY 2005 FECAL OCCULT BLOOD TEST 11/08/2016 negative PAST SURGICAL HISTORY OF 1977 varicose veins stripped bilateral. PAST SURGICAL HISTORY OF sclerotherapy several times PAST SURGICAL HISTORY OF 2007 anterior vaginal repair prolapse Family History FAMILY HISTORY Problem Relation Age of Onset Alzheimer's Disease Father Diabetes Paternal Grandmother Stroke Maternal Grandfather Cancer Mother smoker Thyroid Mother Patient Allergies ALLERGIES No Known Allergies Current Medications Current Outpatient Medications on File Prior to Visit Medication Sig diclofenac, EC, (VOLTAREN) 75 mg EC tablet Take 1 tablet by mouth twice daily. For pain/inflammation. Take with food. lisinopril (ZESTRIL) 10 mg tablet Take 1 tablet by mouth once daily. Cholecalciferol, Vitamin D3, 1,000 unit cap Take 2,000 Units by mouth once daily. Benzonatate 200 mg capsule Take 1 capsule by mouth three times daily as needed. (Patient not taking: Reported on 11/10/2022) fluticasone (FLONASE) 50 mcg/actuation nasal spray Use 2 Sprays in each nostril once daily. Rinse mouth after use. (Patient not taking: Reported on 11/10/2022) No current facility-administered medications on file prior to visit. Social History Social History Tobacco Use Smoking status: Never Smokeless tobacco: Never Vaping Use Vaping Use: Never used Substance Use Topics Alcohol use: Yes Comment: ocassional wine Drug use: Never Review of Symptoms REVIEW OF SYSTEMS EXAM: BP 120/78 Pulse 74 Temp 36.7 ?C (98 ?F) (Left Tympanic) Resp 14 Wt 58.1 kg (128 lb) SpO2 96% BMI 24.64 kg/m? General Appearance: Well appearing, alert, in no acute distress, well-hydrated, well nourished.. Head: Normocephalic, no masses, lesions, tenderness or abnormalities. Nose/Sinuses: Nares normal, septum midline, mucosa normal, no drainage or sinus tenderness. Oropharynx: Lips, mucosa, and tongue normal, teeth and gums normal, oropharynx normal. Lungs: Lungs clear to auscultation. No wheezing, rhonchi, rales.. Heart: RRR without murmur, gallop, or rubs. No ectopy. Health Maintenance List MAMMOGRAM Never done ADVANCE DIRECTIVE DISCUSSION due on 05/29/2022 COLORECTAL CANCER SCREENING due on 09/01/2022 SHINGRIX VACCINE(1 of 2) due on 07/18/2023 COVID-19 VACCINE(1) due on 07/18/2023 PNEUMOCOCCAL: 65+(1 - PCV) due on 07/18/2023 INFLUENZA(Season Ended) due on 01/27/2023 ANNUAL PCP TEAM CHRONIC DISEASE VISIT due on 08/24/2023 BP CONTROLLED (<130/80) due on 08/24/2023 DTAP,TDAP,TD(2 - Td or Tdap) due on 12/01/2024 DIABETES SCREEN due on 07/18/2025 LIPID SCREEN due on 07/18/2027 BONE DENSITY Completed DEPRESSION ASSESSMENT Completed HEPATITIS C SCREENING Completed ASSESSMENT/PLAN: 1. Acute non-recurrent frontal sinusitis [J01.10 (ICD-10-CM)] - ICD9: 461.1, ICD10: J01.10 - The patient should also be given nasal saline gtts and suction prn and for the first 5-7 days of treatment. - Supportive care with plenty of fluids, rest, and analgesia prn. - Follow up in 3-5 days if symptoms persist or worsen. Rafaela Washington APRN.MARK [facility] 11-10-2022 Instructions Rafaela Washington APRN.MARK - 11/10/2022 11:04 AM EDT Start claritin and flonase daily x5 days Follow up in 5-7 days if no improvement or worsening symptoms documented in this encounter [facility] 11-10-2022 History of Present illness Narrative Chief Complaint Patient presents with: Sinusitis: Pressure, headache, dizziness since Monday HPI Liam Hu is a 72 year old female who presents here today for Above Complaints.. Patient presents for sinus headache and sinus pressure. Patient reports post nasal drainage that started worsening on Monday. Patient reports she takes claritin as needed. Past medical history, appointments, medications, allergies reviewed. Previous Medical History PAST MEDICAL HISTORY Diagnosis Date Arthritis of both knees 04/29/2020 Sever on right and moderate on left of medial joint spaces. Elevated fasting glucose 07/08/2019 Family history of thyroid disease 10/25/2016 Hemorrhage of rectum and anus 08/03/2005 Hypertension, essential 01/16/2022 Medicare annual wellness visit, subsequent 10/25/2016 last done: 10/25/2016 Pain in left knee 05/06/2015 Varicose veins 05/06/2015 Previous Surgical History PAST SURGICAL HISTORY Procedure Laterality Date COLONOSCOPY 2005 FECAL OCCULT BLOOD TEST 11/08/2016 negative PAST SURGICAL HISTORY OF 1977 varicose veins stripped bilateral. PAST SURGICAL HISTORY OF sclerotherapy several times PAST SURGICAL HISTORY OF 2007 anterior vaginal repair prolapse Family History FAMILY HISTORY Problem Relation Age of Onset Alzheimer's Disease Father Diabetes Paternal Grandmother Stroke Maternal Grandfather Cancer Mother smoker Thyroid Mother Patient Allergies ALLERGIES No Known Allergies Current Medications Current Outpatient Medications on File Prior to Visit Medication Sig diclofenac, EC, (VOLTAREN) 75 mg EC tablet Take 1 tablet by mouth twice daily. For pain/inflammation. Take with food. lisinopril (ZESTRIL) 10 mg tablet Take 1 tablet by mouth once daily. Cholecalciferol, Vitamin D3, 1,000 unit cap Take 2,000 Units by mouth once daily. Benzonatate 200 mg capsule Take 1 capsule by mouth three times daily as needed. (Patient not taking: Reported on 11/10/2022) fluticasone (FLONASE) 50 mcg/actuation nasal spray Use 2 Sprays in each nostril once daily. Rinse mouth after use. (Patient not taking: Reported on 11/10/2022) No current facility-administered medications on file prior to visit. Social History Social History Tobacco Use Smoking status: Never Smokeless tobacco: Never Vaping Use Vaping Use: Never used Substance Use Topics Alcohol use: Yes Comment: ocassional wine Drug use: Never Review of Symptoms REVIEW OF SYSTEMS EXAM: BP 120/78 Pulse 74 Temp 36.7 C (98 F) (Left Tympanic) Resp 14 Wt 58.1 kg (128 lb) SpO2 96% BMI 24.64 kg/m General Appearance: Well appearing, alert, in no acute distress, well-hydrated, well nourished.. Head: Normocephalic, no masses, lesions, tenderness or abnormalities. Nose/Sinuses: Nares normal, septum midline, mucosa normal, no drainage or sinus tenderness. Oropharynx: Lips, mucosa, and tongue normal, teeth and gums normal, oropharynx normal. Lungs: Lungs clear to auscultation. No wheezing, rhonchi, rales.. Heart: RRR without murmur, gallop, or rubs. No ectopy. Health Maintenance List MAMMOGRAM Never done ADVANCE DIRECTIVE DISCUSSION due on 05/29/2022 COLORECTAL CANCER SCREENING due on 09/01/2022 SHINGRIX VACCINE(1 of 2) due on 07/18/2023 COVID-19 VACCINE(1) due on 07/18/2023 PNEUMOCOCCAL: 65+(1 - PCV) due on 07/18/2023 INFLUENZA(Season Ended) due on 01/27/2023 ANNUAL PCP TEAM CHRONIC DISEASE VISIT due on 08/24/2023 BP CONTROLLED (<130/80) due on 08/24/2023 DTAP,TDAP,TD(2 - Td or Tdap) due on 12/01/2024 DIABETES SCREEN due on 07/18/2025 LIPID SCREEN due on 07/18/2027 BONE DENSITY Completed DEPRESSION ASSESSMENT Completed HEPATITIS C SCREENING Completed ASSESSMENT/PLAN: 1. Acute non-recurrent frontal sinusitis [J01.10 (ICD-10-CM)] - ICD9: 461.1, ICD10: J01.10 - The patient should also be given nasal saline gtts and suction prn and for the first 5-7 days of treatment. - Supportive care with plenty of fluids, rest, and analgesia prn. - Follow up in 3-5 days if symptoms persist or worsen. Rafaela Washington APRN.ORACLE [address] SQL DEVELOPER documented in this encounter [facility] 11-02-2022 Note Patient Outreach (IN TMMN) LIAM BURNHAM ([id number]) 1950 F Date Time Provider Department 11/02/22 BHANU MENG During your visit today, we recorded the following information about you: Allergies As of Date: 11/02/2022 (No Known Allergies) Date Reviewed: 08/23/2022 Reviewed by: Taylor Vasquez LPN - Fully Assessed Visit Diagnosis:Encounter for screening mammogram for breast cancer [Z12.31] Order(s):[facility] SCREENING [[id number]] Order #: [id number] FUTURE Prescriptions as of 11/07/2022 - diclofenac, EC, (VOLTAREN) 75 mg EC tablet Take 1 tablet by mouth twice daily. For pain/inflammation. Take with food. - Benzonatate 200 mg capsule Take 1 capsule by mouth three times daily as needed. - lisinopril (ZESTRIL) 10 mg tablet Take 1 tablet by mouth once daily. - fluticasone (FLONASE) 50 mcg/actuation nasal spray Use 2 Sprays in each nostril once daily. Rinse mouth after use. - Cholecalciferol, Vitamin D3, 1,000 unit cap Take 2,000 Units by mouth once daily. Problem List As Of Date 11/02/2022 Noted Resolved Encounter for gynecological examination without*05/06/2015 Varicose veins [I83.90] 05/06/2015 Pain in left knee [M25.562] 05/06/2015 Palpitations [R00.2] 05/06/2015 Left arm pain [M79.602] 05/06/2015 Family history of thyroid disease [Z83.49] 10/25/2016 Medicare annual wellness visit, subsequent [Z00*10/25/2016 Colon cancer screening [Z12.11] 10/25/2016 Left hip pain [M25.552] 10/25/2016 Encounter for screening for diabetes mellitus [*06/17/2019 Elevated fasting glucose [R73.01] 07/08/2019 Arthritis of both knees [M17.0] 04/29/2020 Age-related osteoporosis without current pathol*01/06/2021 Advance directive discussed with patient [Z71.8*11/23/2021 Renal cyst [N28.1] 11/26/2021 Hypertension, essential [I10] 01/16/2022 Encounter Status:Closed by KAYDEN SPRING on 11/07/22 [facility] 09-27-2022 Note Patient Outreach (LORNE BERNAL) LIAM BURNHAM ([id number]) 1950 F Date Time Provider Department 09/27/22 LILY SHELTON During your visit today, we recorded the following information about you: Lily Shelton MA 09/27/2022 12:54 PM Signed POPULATION HEALTH NAVIGATION OUTREACH Action/FYI [facility] [employer] MESSAGE SENT MAMMOGRAM Never done ADVANCE DIRECTIVE DISCUSSION due on 05/29/2022 COLORECTAL CANCER SCREENING due on 09/01/2022 Patient Identified by Name and : NO Outreach Outcome/Action Unable to reach patient: Left message [employer] message sent Did you use a PCP flex slot to schedule this appointment? N/A Reason for Outreach Care Gap or Scheduling/Wellness visits Payer: Payor: MEDICARE / Plan: MEDICARE A AND B / Product Type: Medicare / Care Gap Reviewed:: Breast Cancer screening Colorectal Cancer Screening Reminder: Reminder note to check Health Maintenance for items below Health Maintenance items due: MAMMOGRAM Never done ADVANCE DIRECTIVE DISCUSSION due on 05/29/2022 COLORECTAL CANCER SCREENING due on 09/01/2022 Navigation Signature: Lily Shelton MA September 27, 2022 9:45 AM Allergies As of Date: 09/27/2022 (No Known Allergies) Date Reviewed: 08/23/2022 Reviewed by: Taylor Vasquez LPN - Fully Assessed Reason for Visit: Population Health Navigation Outreach [3910] Cmt: ACO BOB PCSA Prescriptions as of 09/27/2022 - diclofenac, EC, (VOLTAREN) 75 mg EC tablet Take 1 tablet by mouth twice daily. For pain/inflammation. Take with food. - Benzonatate 200 mg capsule Take 1 capsule by mouth three times daily as needed. - lisinopril (ZESTRIL) 10 mg tablet Take 1 tablet by mouth once daily. - fluticasone (FLONASE) 50 mcg/actuation nasal spray Use 2 Sprays in each nostril once daily. Rinse mouth after use. - Cholecalciferol, Vitamin D3, 1,000 unit cap Take 2,000 Units by mouth once daily. Problem List As Of Date 09/27/2022 Noted Resolved Encounter for gynecological examination without*05/06/2015 Varicose veins [I83.90] 05/06/2015 Pain in left knee [M25.562] 05/06/2015 Palpitations [R00.2] 05/06/2015 Left arm pain [M79.602] 05/06/2015 Family history of thyroid disease [Z83.49] 10/25/2016 Medicare annual wellness visit, subsequent [Z00*10/25/2016 Colon cancer screening [Z12.11] 10/25/2016 Left hip pain [M25.552] 10/25/2016 Encounter for screening for diabetes mellitus [*06/17/2019 Elevated fasting glucose [R73.01] 07/08/2019 Arthritis of both knees [M17.0] 04/29/2020 Age-related osteoporosis without current pathol*01/06/2021 Advance directive discussed with patient [Z71.8*11/23/2021 Renal cyst [N28.1] 11/26/2021 Hypertension, essential [I10] 01/16/2022 Encounter Status:Closed by LILY SHELTON on 09/27/22 [facility] 09-27-2022 Note HNO ID: [id number] Author: Lily Shelton MA Service: ? Author Type: Ophthalmic Tech Type: Progress Notes Filed: 09/27/2022 12:54 PM Note Text: POPULATION HEALTH NAVIGATION OUTREACH Action/FYI LVM MYCHART MESSAGE SENT MAMMOGRAM Never done ADVANCE DIRECTIVE DISCUSSION due on 05/29/2022 COLORECTAL CANCER SCREENING due on 09/01/2022 Patient Identified by Name and : NO Outreach Outcome/Action Unable to reach patient: Left message MyChart message sent Did you use a PCP flex slot to schedule this appointment? N/A Reason for Outreach Care Gap or Scheduling/Wellness visits Payer: Payor: MEDICARE / Plan: MEDICARE A AND B / Product Type: Medicare / Care Gap Reviewed:: Breast Cancer screening Colorectal Cancer Screening Reminder: Reminder note to check Health Maintenance for items below Health Maintenance items due: MAMMOGRAM Never done ADVANCE DIRECTIVE DISCUSSION due on 05/29/2022 COLORECTAL CANCER SCREENING due on 09/01/2022 Navigation Signature: Lily Shelton MA September 27, 2022 9:45 AM [facility] 2022 Miscellaneous Notes Left message of same on pt's vm. Taylor Vasquez LPN No letter will be given at this time. If she does not feel well enough to return to work by Monday she will need reassessed. Marilyn Hair PA-C Pt called in and requested to have this nurse return call to her regarding her sx. Spoke with pt. States she is still coughing and has been sneezing a lot. Pt has had more energy and is starting to feel better. Pt states d/t the coughing and sneezing a lot she would like to have a note to be off of work on this coming Mon and . States if she feels better she will just go to work. Would like to have the letter sent to her via My Chart. Advised pt this nurse would call back to let her know if this can be done for her. Taylor Vasquez LPN documented in this encounter [facility] 08-23-2022 Note HNO ID: [id number] Author: Marilyn Hair PA-C Service: ? Author Type: Physician Crawler Tractor Operator Type: Progress Notes Filed: 08/23/2022 8:52 AM Note Text: Chief Complaint Patient presents with: ER F/U HPI Liam Hu is a 71 year old female who presents here today for Above Complaints.. Patient was seen in er on 08/21 for bronchitis. CXR was negative. Symptoms started on Sunday 08/20. Has been using mucinex and other OTC relief. ER did not give any other symptoms. She still feels a little weak and tired. No fever. No shortness of breath. No chest pain. Past medical history, appointments, medications, allergies reviewed. Previous Medical History PAST MEDICAL HISTORY Diagnosis Date Arthritis of both knees 04/29/2020 Sever on right and moderate on left of medial joint spaces. Elevated fasting glucose 07/08/2019 Family history of thyroid disease 10/25/2016 Hemorrhage of rectum and anus 08/03/2005 Hypertension, essential 01/16/2022 Medicare annual wellness visit, subsequent 10/25/2016 last done: 10/25/2016 Pain in left knee 05/06/2015 Varicose veins 05/06/2015 Previous Surgical History PAST SURGICAL HISTORY Procedure Laterality Date COLONOSCOPY 2005 FECAL OCCULT BLOOD TEST 11/08/2016 negative PAST SURGICAL HISTORY OF 1977 varicose veins stripped bilateral. PAST SURGICAL HISTORY OF sclerotherapy several times PAST SURGICAL HISTORY OF 2007 anterior vaginal repair prolapse Family History FAMILY HISTORY Problem Relation Age of Onset Alzheimer's Disease Father Diabetes Paternal Grandmother Stroke Maternal Grandfather Cancer Mother smoker Thyroid Mother Patient Allergies ALLERGIES No Known Allergies Current Medications Current Outpatient Medications on File Prior to Visit Medication Sig lisinopril (ZESTRIL) 10 mg tablet Take 1 tablet by mouth once daily. diclofenac, EC, (VOLTAREN) 75 mg EC tablet Take 1 tablet by mouth twice daily. For pain/inflammation. Take with food. Cholecalciferol, Vitamin D3, 1,000 unit cap Take 2,000 Units by mouth once daily. fluticasone (FLONASE) 50 mcg/actuation nasal spray Use 2 Sprays in each nostril once daily. Rinse mouth after use. (Patient not taking: Reported on 07/18/2022) BIOTIN, BULK, MISC (Patient not taking: Reported on 10/19/2020 ) No current facility-administered medications on file prior to visit. Social History Social History Tobacco Use Smoking status: Never Smokeless tobacco: Never Vaping Use Vaping Use: Never used Substance Use Topics Alcohol use: Yes Comment: ocassional wine Drug use: Never Review of Symptoms REVIEW OF SYSTEMS See hpi EXAM: BP 110/78 (BP Site: Left Arm, BP Position: Sitting, BP Cuff Size: Regular Adult) Pulse 86 Temp 36.7 ?C (98 ?F) Resp 18 Wt 57.2 kg (126 lb) SpO2 97% BMI 24.26 kg/m? General Appearance: Well appearing, alert, in no acute distress, well-hydrated, well nourished.. Eyes: Anicteric sclera. Pupils are equally round and reactive to light. Extraocular movements are intact. . Ears: External ears normal, canals clear. Nose/Sinuses: Nares normal, septum midline, mucosa normal, no drainage or sinus tenderness. Oropharynx: Lips, mucosa, and tongue normal, teeth and gums normal, oropharynx normal. Neck: Supple, no adenopathy; thyroid symmetric, normal size, no bruits. Lungs: Lungs clear to auscultation. No wheezing, rhonchi, rales.. Heart: RRR without murmur, gallop, or rubs. No ectopy. Health Maintenance List BP CONTROLLED (<130/80) Never done MAMMOGRAM Never done ADVANCE DIRECTIVE DISCUSSION due on 05/29/2022 COLORECTAL CANCER SCREENING due on 09/01/2022 INFLUENZA(1) due on 11/25/2022 SHINGRIX VACCINE(1 of 2) due on 07/18/2023 COVID-19 VACCINE(1) due on 07/18/2023 PNEUMOCOCCAL: 65+(1 - PCV) due on 07/18/2023 ANNUAL PCP TEAM CHRONIC DISEASE VISIT due on 08/13/2023 DTAP,TDAP,TD(2 - Td or Tdap) due on 12/01/2024 DIABETES SCREEN due on 07/18/2025 LIPID SCREEN due on 07/18/2027 BONE DENSITY Completed DEPRESSION ASSESSMENT Completed HEPATITIS C SCREENING Completed Data reviewed ASSESSMENT/PLAN: 1. Viral bronchitis - ICD9: 466.0, ICD10: J20.8 Continue symptomatic tx. Bhavin crisostomo for prn cough suppression. Follow up if not improving in 5-7 days. Discussed possible red flags and when to seek medical attention. Marilyn Hair PA-C [facility] 08-17-2022 Note Patient Outreach (NE TNAV) LIAM BURNHAM ([id number]) 1950 F Date Time Provider Department 08/17/22 JOSEPH GARCIA During your visit today, we recorded the following information about you: Joseph Garcia MA 08/17/2022 9:45 AM Signed POPULATION HEALTH NAVIGATION OUTREACH Action/FYI left message to call me back to schedule colonoscopy my chart message sent with Secret bp follow up 09/09/22 Patient Identified by Name and : NO Outreach Outcome/Action Unable to reach patient: Left message MyChart message sent Did you use a PCP flex slot to schedule this appointment? N/A Reason for Outreach Care Gap or Scheduling/Wellness visits Payer: Payor: MEDICARE / Plan: MEDICARE A AND B / Product Type: Medicare / Care Gap Reviewed:: Controlling Blood Pressure Colorectal Cancer Screening Reminder: Reminder note to check Health Maintenance for items below Health Maintenance items due: BP CONTROLLED (<130/80) Never done MAMMOGRAM Never done ADVANCE DIRECTIVE DISCUSSION due on 05/29/2022 COLORECTAL CANCER SCREENING due on 09/01/2022 Navigation Signature: Joseph Garcia MA August 17, 2022 9:43 AM Allergies As of Date: 08/17/2022 (No Known Allergies) Date Reviewed: 08/12/2022 Reviewed by: Jonelle Casanova LPN - Fully Assessed Reason for Visit: Population Health Navigation Outreach [3910] Cmt: ACO Care Gaps Prescriptions as of 08/17/2022 - lisinopril (ZESTRIL) 10 mg tablet Take 1 tablet by mouth once daily. - diclofenac, EC, (VOLTAREN) 75 mg EC tablet Take 1 tablet by mouth twice daily. For pain/inflammation. Take with food. - fluticasone (FLONASE) 50 mcg/actuation nasal spray Use 2 Sprays in each nostril once daily. Rinse mouth after use. - BIOTIN, BULK, MISC - Cholecalciferol, Vitamin D3, 1,000 unit cap Take 2,000 Units by mouth once daily. Problem List As Of Date 08/17/2022 Noted Resolved Encounter for gynecological examination without*05/06/2015 Varicose veins [I83.90] 05/06/2015 Pain in left knee [M25.562] 05/06/2015 Palpitations [R00.2] 05/06/2015 Left arm pain [M79.602] 05/06/2015 Family history of thyroid disease [Z83.49] 10/25/2016 Medicare annual wellness visit, subsequent [Z00*10/25/2016 Colon cancer screening [Z12.11] 10/25/2016 Left hip pain [M25.552] 10/25/2016 Encounter for screening for diabetes mellitus [*06/17/2019 Elevated fasting glucose [R73.01] 07/08/2019 Arthritis of both knees [M17.0] 04/29/2020 Age-related osteoporosis without current pathol*01/06/2021 Advance directive discussed with patient [Z71.8*11/23/2021 Renal cyst [N28.1] 11/26/2021 Hypertension, essential [I10] 01/16/2022 Encounter Status:Closed by JOSEPH GARCIA on 08/17/22 [facility] 08-17-2022 Note HNO ID: [id number] Author: Joseph Garcia MA Service: ? Author Type: Ophthalmic Tech Type: Progress Notes Filed: 08/17/2022 9:45 AM Note Text: POPULATION HEALTH NAVIGATION OUTREACH Action/FYI left message to call me back to schedule colonoscopy my chart message sent with AD info bp follow up 09/09/22 Patient Identified by Name and : NO Outreach Outcome/Action Unable to reach patient: Left message MyChart message sent Did you use a PCP flex slot to schedule this appointment? N/A Reason for Outreach Care Gap or Scheduling/Wellness visits Payer: Payor: MEDICARE / Plan: MEDICARE A AND B / Product Type: Medicare / Care Gap Reviewed:: Controlling Blood Pressure Colorectal Cancer Screening Reminder: Reminder note to check Health Maintenance for items below Health Maintenance items due: BP CONTROLLED (<130/80) Never done MAMMOGRAM Never done ADVANCE DIRECTIVE DISCUSSION due on 05/29/2022 COLORECTAL CANCER SCREENING due on 09/01/2022 Navigation Signature: Joseph Garcia MA August 17, 2022 9:43 AM [facility] 08-17-2022 History of Present illness Narrative POPULATION HEALTH NAVIGATION OUTREACH Action/FYI left message to call me back to schedule colonoscopy my chart message sent with AD info bp follow up 09/09/22 Patient Identified by Name and : NO Outreach Outcome/Action Unable to reach patient: Left message MyChart message sent Did you use a PCP flex slot to schedule this appointment? N/A Reason for Outreach Care Gap or Scheduling/Wellness visits Payer: Payor: MEDICARE / Plan: MEDICARE A AND B / Product Type: Medicare / Care Gap Reviewed:: Controlling Blood Pressure Colorectal Cancer Screening Reminder: Reminder note to check Health Maintenance for items below Health Maintenance items due: BP CONTROLLED (<130/80) Never done MAMMOGRAM Never done ADVANCE DIRECTIVE DISCUSSION due on 05/29/2022 COLORECTAL CANCER SCREENING due on 09/01/2022 Navigation Signature: Joseph Garcia MA August 17, 2022 9:43 AM documented in this encounter [facility] 08-12-2022 Note HNO ID: [id number] Author: Marilyn Hair PA-C Service: ? Author Type: Physician Crawler Tractor Operator Type: Progress Notes Filed: 08/12/2022 9:22 AM Note Text: Chief Complaint Patient presents with: Follow Up: Bp 07/18/22 HPI Liam Hu is a 71 year old female who presents here today for Above Complaints.. Patient was seen a month ago and she had stopped her blood pressure medication and her BP was elevated. Last 3 Encounter BP Readings: Date: BP: 08/12/2022 148/92 07/18/2022 158/86 12/23/2021 148/82 Past medical history, appointments, medications, allergies reviewed. Previous Medical History PAST MEDICAL HISTORY Diagnosis Date Arthritis of both knees 04/29/2020 Sever on right and moderate on left of medial joint spaces. Elevated fasting glucose 07/08/2019 Family history of thyroid disease 10/25/2016 Hemorrhage of rectum and anus 08/03/2005 Hypertension, essential 01/16/2022 Medicare annual wellness visit, subsequent 10/25/2016 last done: 10/25/2016 Pain in left knee 05/06/2015 Varicose veins 05/06/2015 Previous Surgical History PAST SURGICAL HISTORY Procedure Laterality Date COLONOSCOPY 2005 FECAL OCCULT BLOOD TEST 11/08/2016 negative PAST SURGICAL HISTORY OF 1977 varicose veins stripped bilateral. PAST SURGICAL HISTORY OF sclerotherapy several times PAST SURGICAL HISTORY OF 2007 anterior vaginal repair prolapse Family History FAMILY HISTORY Problem Relation Age of Onset Alzheimer's Disease Father Diabetes Paternal Grandmother Stroke Maternal Grandfather Cancer Mother smoker Thyroid Mother Patient Allergies ALLERGIES No Known Allergies Current Medications Current Outpatient Medications on File Prior to Visit Medication Sig lisinopril (ZESTRIL, PRINIVIL) 5 mg tablet Take 1 tablet by mouth once daily. diclofenac, EC, (VOLTAREN) 75 mg EC tablet Take 1 tablet by mouth twice daily. For pain/inflammation. Take with food. Cholecalciferol, Vitamin D3, 1,000 unit cap Take 2,000 Units by mouth once daily. fluticasone (FLONASE) 50 mcg/actuation nasal spray Use 2 Sprays in each nostril once daily. Rinse mouth after use. (Patient not taking: Reported on 07/18/2022) BIOTIN, BULK, MISC (Patient not taking: Reported on 10/19/2020 ) No current facility-administered medications on file prior to visit. Social History Social History Tobacco Use Smoking status: Never Smokeless tobacco: Never Vaping Use Vaping Use: Never used Substance Use Topics Alcohol use: Yes Comment: ocassional wine Drug use: Never Review of Symptoms REVIEW OF SYSTEMS See hpi EXAM: BP 148/92 Pulse 70 Resp 16 Wt 58.1 kg (128 lb) SpO2 99% BMI 24.64 kg/m? Blood pressure 147/88, pulse 70, resp. rate 16, weight 58.1 kg (128 lb), SpO2 99 %. General Appearance: Well appearing, alert, in no acute distress, well-hydrated, well nourished.. Health Maintenance List BP CONTROLLED (<130/80) Never done MAMMOGRAM Never done ADVANCE DIRECTIVE DISCUSSION due on 05/29/2022 COLORECTAL CANCER SCREENING due on 09/01/2022 INFLUENZA(1) due on 11/25/2022 SHINGRIX VACCINE(1 of 2) due on 07/18/2023 COVID-19 VACCINE(1) due on 07/18/2023 PNEUMOCOCCAL: 65+(1 - PCV) due on 07/18/2023 ANNUAL PCP TEAM CHRONIC DISEASE VISIT due on 08/13/2023 DTAP,TDAP,TD(2 - Td or Tdap) due on 12/01/2024 DIABETES SCREEN due on 07/18/2025 LIPID SCREEN due on 07/18/2027 BONE DENSITY Completed DEPRESSION ASSESSMENT Completed HEPATITIS C SCREENING Completed Data reviewed ASSESSMENT/PLAN: 1. Hypertension, essential - ICD9: 401.9, ICD10: I10 - poor control - Increase lisinopril (Zestril/Prinivil) to 10mg - Recommended regular aerobic exercise. - Recommend home blood pressure monitoring, to bring results in on next visit - Follow up in 1 month for BP recheck. - Goal of BP <130/80 Marilyn Hair PA-C [facility] 08-12-2022 History of Present illness Narrative Chief Complaint Patient presents with: Follow Up: Bp 07/18/22 HPI Liam Hu is a 71 year old female who presents here today for Above Complaints.. Patient was seen a month ago and she had stopped her blood pressure medication and her BP was elevated. Last 3 Encounter BP Readings: Date: BP: 08/12/2022 148/92 07/18/2022 158/86 12/23/2021 148/82 Past medical history, appointments, medications, allergies reviewed. Previous Medical History PAST MEDICAL HISTORY Diagnosis Date Arthritis of both knees 04/29/2020 Sever on right and moderate on left of medial joint spaces. Elevated fasting glucose 07/08/2019 Family history of thyroid disease 10/25/2016 Hemorrhage of rectum and anus 08/03/2005 Hypertension, essential 01/16/2022 Medicare annual wellness visit, subsequent 10/25/2016 last done: 10/25/2016 Pain in left knee 05/06/2015 Varicose veins 05/06/2015 Previous Surgical History PAST SURGICAL HISTORY Procedure Laterality Date COLONOSCOPY 2005 FECAL OCCULT BLOOD TEST 11/08/2016 negative PAST SURGICAL HISTORY OF 1977 varicose veins stripped bilateral. PAST SURGICAL HISTORY OF sclerotherapy several times PAST SURGICAL HISTORY OF 2007 anterior vaginal repair prolapse Family History FAMILY HISTORY Problem Relation Age of Onset Alzheimer's Disease Father Diabetes Paternal Grandmother Stroke Maternal Grandfather Cancer Mother smoker Thyroid Mother Patient Allergies ALLERGIES No Known Allergies Current Medications Current Outpatient Medications on File Prior to Visit Medication Sig lisinopril (ZESTRIL, PRINIVIL) 5 mg tablet Take 1 tablet by mouth once daily. diclofenac, EC, (VOLTAREN) 75 mg EC tablet Take 1 tablet by mouth twice daily. For pain/inflammation. Take with food. Cholecalciferol, Vitamin D3, 1,000 unit cap Take 2,000 Units by mouth once daily. fluticasone (FLONASE) 50 mcg/actuation nasal spray Use 2 Sprays in each nostril once daily. Rinse mouth after use. (Patient not taking: Reported on 07/18/2022) BIOTIN, BULK, MISC (Patient not taking: Reported on 10/19/2020 ) No current facility-administered medications on file prior to visit. Social History Social History Tobacco Use Smoking status: Never Smokeless tobacco: Never Vaping Use Vaping Use: Never used Substance Use Topics Alcohol use: Yes Comment: ocassional wine Drug use: Never Review of Symptoms REVIEW OF SYSTEMS See hpi EXAM: BP 148/92 Pulse 70 Resp 16 Wt 58.1 kg (128 lb) SpO2 99% BMI 24.64 kg/m Blood pressure 147/88, pulse 70, resp. rate 16, weight 58.1 kg (128 lb), SpO2 99 %. General Appearance: Well appearing, alert, in no acute distress, well-hydrated, well nourished.. Health Maintenance List BP CONTROLLED (<130/80) Never done MAMMOGRAM Never done ADVANCE DIRECTIVE DISCUSSION due on 05/29/2022 COLORECTAL CANCER SCREENING due on 09/01/2022 INFLUENZA(1) due on 11/25/2022 SHINGRIX VACCINE(1 of 2) due on 07/18/2023 COVID-19 VACCINE(1) due on 07/18/2023 PNEUMOCOCCAL: 65+(1 - PCV) due on 07/18/2023 ANNUAL PCP TEAM CHRONIC DISEASE VISIT due on 08/13/2023 DTAP,TDAP,TD(2 - Td or Tdap) due on 12/01/2024 DIABETES SCREEN due on 07/18/2025 LIPID SCREEN due on 07/18/2027 BONE DENSITY Completed DEPRESSION ASSESSMENT Completed HEPATITIS C SCREENING Completed Data reviewed ASSESSMENT/PLAN: 1. Hypertension, essential - ICD9: 401.9, ICD10: I10 - poor control - Increase lisinopril (Zestril/Prinivil) to 10mg - Recommended regular aerobic exercise. - Recommend home blood pressure monitoring, to bring results in on next visit - Follow up in 1 month for BP recheck. - Goal of BP <130/80 Marilyn Hair PA-C documented in this encounter [facility] 07-19-2022 Miscellaneous Notes Spoke with pt and information listed below given. Pt verbalizes understanding. Pt would like to try harder on her diet regarding the LDL. Noreen Benson LPN Let patient know that her tsh level is normal A1c is 5.7 which is prediabetes still. Watch carbs. Liver enzymes have improved but still mildly elevated. LDL is still slightly higher than goal at 133. Would like to get her closer to 100. Recommend dietary changes first or we can consider a medication given the other risk factors for heart disease (HTN, prediabetes).. Marilyn Hair PA-C documented in this encounter [facility] 07-18-2022 Note HNO ID: [id number] Author: Marilyn Hair PA-C Service: ? Author Type: Physician Crawler Tractor Operator Type: Progress Notes Filed: 07/18/2022 11:03 AM Note Text: Chief Complaint Patient presents with: Follow Up: 6 month HPI Nelsy Hu is a 71 year old female who presents here today for Chronic Medical Conditions.. Patient with hx of HTN, elevated glucose, osteoporosis, and those as below. Patient states she stopped her BP medication because she just got busy and didn't want to deal with it. She's still working 32 hours a week and she is getting to the point that she thinks she should be done. Last 5 Encounter BP Readings: Date: BP: 07/18/2022 158/86 12/23/2021 148/82 11/26/2021 158/88 11/23/2021 159/84[bp lien average[ 10/22/2021 128/88 Past medical history, appointments, medications, allergies reviewed. Previous Medical History PAST MEDICAL HISTORY Diagnosis Date Arthritis of both knees 04/29/2020 Sever on right and moderate on left of medial joint spaces. Elevated fasting glucose 07/08/2019 Family history of thyroid disease 10/25/2016 Hemorrhage of rectum and anus 08/03/2005 Hypertension, essential 01/16/2022 Medicare annual wellness visit, subsequent 10/25/2016 last done: 10/25/2016 Pain in left knee 05/06/2015 Varicose veins 05/06/2015 Previous Surgical History PAST SURGICAL HISTORY Procedure Laterality Date COLONOSCOPY 2005 FECAL OCCULT BLOOD TEST 11/08/2016 negative PAST SURGICAL HISTORY OF 1977 varicose veins stripped bilateral. PAST SURGICAL HISTORY OF sclerotherapy several times PAST SURGICAL HISTORY OF 2007 anterior vaginal repair prolapse Family History FAMILY HISTORY Problem Relation Age of Onset Alzheimer's Disease Father Diabetes Paternal Grandmother Stroke Maternal Grandfather Cancer Mother smoker Thyroid Mother Patient Allergies ALLERGIES No Known Allergies Current Medications Current Outpatient Medications on File Prior to Visit Medication Sig diclofenac, EC, (VOLTAREN) 75 mg EC tablet Take 1 tablet by mouth twice daily. For pain/inflammation. Take with food. Cholecalciferol, Vitamin D3, 1,000 unit cap Take 2,000 Units by mouth once daily. lisinopril (ZESTRIL, PRINIVIL) 5 mg tablet Take 1 tablet by mouth once daily. (Patient not taking: Reported on 07/18/2022) cefADROxil (DURICEF) 500 mg capsule Take 1 capsule by mouth twice daily. (Patient not taking: Reported on 07/18/2022) fluticasone (FLONASE) 50 mcg/actuation nasal spray Use 2 Sprays in each nostril once daily. Rinse mouth after use. (Patient not taking: Reported on 07/18/2022) BIOTIN, BULK, MISC (Patient not taking: Reported on 10/19/2020 ) No current facility-administered medications on file prior to visit. Social History Social History Tobacco Use Smoking status: Never Smokeless tobacco: Never Vaping Use Vaping Use: Never used Substance Use Topics Alcohol use: Yes Comment: ocassional wine Drug use: Never Review of Symptoms REVIEW OF SYSTEMS GENERAL: No weight loss, malaise or fevers NECK: Negative for lumps, goiter, pain and significant neck swelling RESPIRATORY: Negative for cough, hemoptysis, wheezing, COPD, dyspnea or shortness of breath CARDIOVASCULAR: +palpitations at night. Negative for chest pain, leg swelling, hypertension, CHF NEURO: No history of headaches, syncope, paralysis, seizures or tremors EXAM: BP 158/86 Pulse 76 Resp 16 Wt 58.1 kg (128 lb) SpO2 98% BMI 24.64 kg/m? General Appearance: Well appearing, alert, in no acute distress, well-hydrated, well nourished.. Neck: Supple, no adenopathy; thyroid symmetric, normal size, no bruits. Lungs: Lungs clear to auscultation. No wheezing, rhonchi, rales.. Heart: RRR without murmur, gallop, or rubs. No ectopy. Extremities: No deformities, edema, skin discoloration, clubbing or cyanosis. Good capillary refill. . Peripheral Pulses: Normal. Health Maintenance List BP CONTROLLED (<130/80) Never done MAMMOGRAM Never done ADVANCE DIRECTIVE DISCUSSION due on 05/29/2022 DEPRESSION ASSESSMENT Never done COLORECTAL CANCER SCREENING due on 09/01/2022 INFLUENZA(1) due on 11/25/2022 SHINGRIX VACCINE(1 of 2) due on 07/18/2023 COVID-19 VACCINE(1) due on 07/18/2023 PNEUMOCOCCAL: 65+(1 - PCV) due on 07/18/2023 ANNUAL PCP TEAM CHRONIC DISEASE VISIT due on 12/23/2022 DIABETES SCREEN due on 11/23/2024 DTAP,TDAP,TD(2 - Td or Tdap) due on 12/01/2024 LIPID SCREEN due on 11/23/2026 BONE DENSITY Completed HEPATITIS C SCREENING Completed Data reviewed N/a ASSESSMENT/PLAN: 1. Hypertension, essential - ICD9: 401.9, ICD10: I10 (primary diagnosis) - poor control - noncompliant - Restart current medication(s) - Recommended regular aerobic exercise. - Recommend home blood pressure monitoring, to bring results in on next visit Recheck in 1 month - Goal of BP <130/80 - COMP METABOLIC PANEL 2. Elevated fasting glucose - ICD9: 790.21, ICD10 (more content not included)... [facility] 07-18-2022 History of Present illness Narrative Chief Complaint Patient presents with: Follow Up: 6 month HPI Nelsy Hu is a 71 year old female who presents here today for Chronic Medical Conditions.. Patient with hx of HTN, elevated glucose, osteoporosis, and those as below. Patient states she stopped her BP medication because she just got busy and didn't want to deal with it. She's still working 32 hours a week and she is getting to the point that she thinks she should be done. Last 5 Encounter BP Readings: Date: BP: 07/18/2022 158/86 12/23/2021 148/82 11/26/2021 158/88 11/23/2021 159/84[bp lien average[ 10/22/2021 128/88 Past medical history, appointments, medications, allergies reviewed. Previous Medical History PAST MEDICAL HISTORY Diagnosis Date Arthritis of both knees 04/29/2020 Sever on right and moderate on left of medial joint spaces. Elevated fasting glucose 07/08/2019 Family history of thyroid disease 10/25/2016 Hemorrhage of rectum and anus 08/03/2005 Hypertension, essential 01/16/2022 Medicare annual wellness visit, subsequent 10/25/2016 last done: 10/25/2016 Pain in left knee 05/06/2015 Varicose veins 05/06/2015 Previous Surgical History PAST SURGICAL HISTORY Procedure Laterality Date COLONOSCOPY 2005 FECAL OCCULT BLOOD TEST 11/08/2016 negative PAST SURGICAL HISTORY OF 1977 varicose veins stripped bilateral. PAST SURGICAL HISTORY OF sclerotherapy several times PAST SURGICAL HISTORY OF 2007 anterior vaginal repair prolapse Family History FAMILY HISTORY Problem Relation Age of Onset Alzheimer's Disease Father Diabetes Paternal Grandmother Stroke Maternal Grandfather Cancer Mother smoker Thyroid Mother Patient Allergies ALLERGIES No Known Allergies Current Medications Current Outpatient Medications on File Prior to Visit Medication Sig diclofenac, EC, (VOLTAREN) 75 mg EC tablet Take 1 tablet by mouth twice daily. For pain/inflammation. Take with food. Cholecalciferol, Vitamin D3, 1,000 unit cap Take 2,000 Units by mouth once daily. lisinopril (ZESTRIL, PRINIVIL) 5 mg tablet Take 1 tablet by mouth once daily. (Patient not taking: Reported on 07/18/2022) cefADROxil (DURICEF) 500 mg capsule Take 1 capsule by mouth twice daily. (Patient not taking: Reported on 07/18/2022) fluticasone (FLONASE) 50 mcg/actuation nasal spray Use 2 Sprays in each nostril once daily. Rinse mouth after use. (Patient not taking: Reported on 07/18/2022) BIOTIN, BULK, MISC (Patient not taking: Reported on 10/19/2020 ) No current facility-administered medications on file prior to visit. Social History Social History Tobacco Use Smoking status: Never Smokeless tobacco: Never Vaping Use Vaping Use: Never used Substance Use Topics Alcohol use: Yes Comment: ocassional wine Drug use: Never Review of Symptoms REVIEW OF SYSTEMS GENERAL: No weight loss, malaise or fevers NECK: Negative for lumps, goiter, pain and significant neck swelling RESPIRATORY: Negative for cough, hemoptysis, wheezing, COPD, dyspnea or shortness of breath CARDIOVASCULAR: +palpitations at night. Negative for chest pain, leg swelling, hypertension, CHF NEURO: No history of headaches, syncope, paralysis, seizures or tremors EXAM: BP 158/86 Pulse 76 Resp 16 Wt 58.1 kg (128 lb) SpO2 98% BMI 24.64 kg/m General Appearance: Well appearing, alert, in no acute distress, well-hydrated, well nourished.. Neck: Supple, no adenopathy; thyroid symmetric, normal size, no bruits. Lungs: Lungs clear to auscultation. No wheezing, rhonchi, rales.. Heart: RRR without murmur, gallop, or rubs. No ectopy. Extremities: No deformities, edema, skin discoloration, clubbing or cyanosis. Good capillary refill. . Peripheral Pulses: Normal. Health Maintenance List BP CONTROLLED (<130/80) Never done MAMMOGRAM Never done ADVANCE DIRECTIVE DISCUSSION due on 05/29/2022 DEPRESSION ASSESSMENT Never done COLORECTAL CANCER SCREENING due on 09/01/2022 INFLUENZA(1) due on 11/25/2022 SHINGRIX VACCINE(1 of 2) due on 07/18/2023 COVID-19 VACCINE(1) due on 07/18/2023 PNEUMOCOCCAL: 65+(1 - PCV) due on 07/18/2023 ANNUAL PCP TEAM CHRONIC DISEASE VISIT due on 12/23/2022 DIABETES SCREEN due on 11/23/2024 DTAP,TDAP,TD(2 - Td or Tdap) due on 12/01/2024 LIPID SCREEN due on 11/23/2026 BONE DENSITY Completed HEPATITIS C SCREENING Completed Data reviewed N/a ASSESSMENT/PLAN: 1. Hypertension, essential - ICD9: 401.9, ICD10: I10 (primary diagnosis) - poor control - noncompliant - Restart current medication(s) - Recommended regular aerobic exercise. - Recommend home blood pressure monitoring, to bring results in on next visit Recheck in 1 month - Goal of BP <130/80 - COMP METABOLIC PANEL 2. Elevated fasting glucose - ICD9: 790.21, ICD10: R73.01 - HGB A1C 3. Palpitations - ICD9: 785.1, ICD10: R00.2 stable 4. Family history of thyroid disease - ICD9: V18.19, ICD10: Z83.49 - TSH BLD 5. Age-related osteoporosis without current pathological fracture - ICD9: 733.01, ICD10: M81.0 - Reviewed the need for Calcium and Vitamin D supplements and weight bearing exercise as tolerated 6. Dyslipidemia - ICD9: 272.4, ICD10: E78.5 - LIPID PANEL, NONFASTING Follow up in 1 month for bp recheck and 6 months for wellness. Marilyn Hair PA-C documented in this encounter [facility] 07-04-2022 Note Patient Outreach (LORNE TNAV) NELSY BURNHAM ([id number]) 1950 F Date Time Provider Department 07/04/22 LILY SHELTON During your visit today, we recorded the following information about you: Lily Shelton MA 07/04/2022 3:33 PM Signed POPULATION HEALTH NAVIGATION OUTREACH Action/FYI Unable to LVM, mailbox is not set up. My chart message sent ANNUAL MEDICARE WELLNESS P CONTROLLED (<130/80) Never done MAMMOGRAM Never done INFLUENZA(1) due on 01/27/2022 COLORECTAL CANCER SCREENING Patient Identified by Name and : NO Outreach Outcome/Action Unable to reach patient: Phone number not valid / voicemail full [employer] message sent Did you use a PCP flex slot to schedule this appointment? N/A Reason for Outreach Care Gap or Scheduling/Wellness visits Payer: Payor: MEDICARE / Plan: MEDICARE A AND B / Product Type: Medicare / Care Gap Reviewed:: Annual Wellness visit Breast Cancer screening Controlling Blood Pressure Colorectal Cancer Screening Flu Vaccine Reminder: Reminder note to check Health Maintenance for items below Health Maintenance items due: COVID-19 VACCINE(1) Never done BP CONTROLLED (<130/80) Never done MAMMOGRAM Never done SHINGRIX VACCINE(1 of 2) Never done PNEUMOCOCCAL: 65+(1 - PCV) Never done INFLUENZA(1) due on 01/27/2022 ADVANCE DIRECTIVE DISCUSSION due on 05/29/2022 DEPRESSION ASSESSMENT Never done COLORECTAL CANCER SCREENING due on 09/01/2022 Navigation Signature: Lily Shelton MA July 04, 2022 11:18 AM Allergies As of Date: 07/04/2022 (No Known Allergies) Date Reviewed: 12/23/2021 Reviewed by: Caty Kwon MA - Fully Assessed Reason for Visit: Population Health Navigation Outreach [3910] Cmt: ACO BOB PCSA Prescriptions as of 07/04/2022 - lisinopril (ZESTRIL, PRINIVIL) 5 mg tablet Take 1 tablet by mouth once daily. - cefADROxil (DURICEF) 500 mg capsule Take 1 capsule by mouth twice daily. - diclofenac, EC, (VOLTAREN) 75 mg EC tablet Take 1 tablet by mouth twice daily. For pain/inflammation. Take with food. - fluticasone (FLONASE) 50 mcg/actuation nasal spray Use 2 Sprays in each nostril once daily. Rinse mouth after use. - BIOTIN, BULK, MISC - Cholecalciferol, Vitamin D3, 1,000 unit cap Take 2,000 Units by mouth once daily. Problem List As Of Date 07/04/2022 Noted Resolved Encounter for gynecological examination without*05/06/2015 Varicose veins [I83.90] 05/06/2015 Pain in left knee [M25.562] 05/06/2015 Palpitations [R00.2] 05/06/2015 Left arm pain [M79.602] 05/06/2015 Family history of thyroid disease [Z83.49] 10/25/2016 Medicare annual wellness visit, subsequent [Z00*10/25/2016 Colon cancer screening [Z12.11] 10/25/2016 Left hip pain [M25.552] 10/25/2016 Encounter for screening for diabetes mellitus [*06/17/2019 Elevated fasting glucose [R73.01] 07/08/2019 Arthritis of both knees [M17.0] 04/29/2020 Age-related osteoporosis without current pathol*01/06/2021 Advance directive discussed with patient [Z71.8*11/23/2021 Renal cyst [N28.1] 11/26/2021 Hypertension, essential [I10] 01/16/2022 Encounter Status:Closed by LILY SHELTON on 07/04/22 [facility] 07-04-2022 Note HNO ID: [id number] Author: Lily Shelton MA Service: ? Author Type: Ophthalmic Tech Type: Progress Notes Filed: 07/04/2022 3:33 PM Note Text: POPULATION HEALTH NAVIGATION OUTREACH Action/FYI Unable to LVM, mailbox is not set up. My chart message sent ANNUAL MEDICARE WELLNESS P CONTROLLED (<130/80) Never done MAMMOGRAM Never done INFLUENZA(1) due on 01/27/2022 COLORECTAL CANCER SCREENING Patient Identified by Name and : NO Outreach Outcome/Action Unable to reach patient: Phone number not valid / voicemail full [employer] message sent Did you use a PCP flex slot to schedule this appointment? N/A Reason for Outreach Care Gap or Scheduling/Wellness visits Payer: Payor: MEDICARE / Plan: MEDICARE A AND B / Product Type: Medicare / Care Gap Reviewed:: Annual Wellness visit Breast Cancer screening Controlling Blood Pressure Colorectal Cancer Screening Flu Vaccine Reminder: Reminder note to check Health Maintenance for items below Health Maintenance items due: COVID-19 VACCINE(1) Never done BP CONTROLLED (<130/80) Never done MAMMOGRAM Never done SHINGRIX VACCINE(1 of 2) Never done PNEUMOCOCCAL: 65+(1 - PCV) Never done INFLUENZA(1) due on 01/27/2022 ADVANCE DIRECTIVE DISCUSSION due on 05/29/2022 DEPRESSION ASSESSMENT Never done COLORECTAL CANCER SCREENING due on 09/01/2022 Navigation Signature: Lily Shelton MA July 04, 2022 11:18 AM [facility] 07-04-2022 History of Present illness Narrative POPULATION HEALTH NAVIGATION OUTREACH Action/FYI Unable to LVM, mailbox is not set up. My chart message sent ANNUAL MEDICARE WELLNESS P CONTROLLED (<130/80) Never done MAMMOGRAM Never done INFLUENZA(1) due on 01/27/2022 COLORECTAL CANCER SCREENING Patient Identified by Name and : NO Outreach Outcome/Action Unable to reach patient: Phone number not valid / voicemail full [employer] message sent Did you use a PCP flex slot to schedule this appointment? N/A Reason for Outreach Care Gap or Scheduling/Wellness visits Payer: Payor: MEDICARE / Plan: MEDICARE A AND B / Product Type: Medicare / Care Gap Reviewed:: Annual Wellness visit Breast Cancer screening Controlling Blood Pressure Colorectal Cancer Screening Flu Vaccine Reminder: Reminder note to check Health Maintenance for items below Health Maintenance items due: COVID-19 VACCINE(1) Never done BP CONTROLLED (<130/80) Never done MAMMOGRAM Never done SHINGRIX VACCINE(1 of 2) Never done PNEUMOCOCCAL: 65+(1 - PCV) Never done INFLUENZA(1) due on 01/27/2022 ADVANCE DIRECTIVE DISCUSSION due on 05/29/2022 DEPRESSION ASSESSMENT Never done COLORECTAL CANCER SCREENING due on 09/01/2022 Navigation Signature: Lily Shelton MA July 04, 2022 11:18 AM documented in this encounter [facility] 05-19-2022 History of Present illness Narrative [facility] Enrollment Provider Action/FYI: Patient referred by: C Alana Contact made with patient: No - 2nd attempt to reach patient, left another message: Hi my name is Paula Mcgrath RN and I am calling from the [facility] on behalf of your PCP, Bhanu Meng MD. We are excited to share with you a new program to help you manage your health. Please call me back at [phone]. I hope you can take the time to speak with me. (Keep encounter open for additional two business days in case patient calls back. Close encounter if no response by end of second business day) Closing: Could not reach the patient after two attempted outreaches. Process Improvement Consultant to retry patient in one week. END OUTREACH [facility] Enrollment Provider Action/FYI: Patient referred by: [facility] Alana Contact made with patient: No - Left Message: Hi my name is Paula Mcgrath RN and I am calling from the [facility] on behalf of your PCP, Bhanu Meng MD. We are excited to share with you a new program to help you manage your health. Please call me back at [phone] between the hours of 8am-5pm Monday-Monday. You will receive another phone call from me within the next two business days. I hope you can take the time to speak with me. (Keep encounter open and attempt 2nd outreach in two business days from today) END OUTREACH documented in this encounter [facility] 04-20-2022 History of Present illness Narrative POPULATION HEALTH NAVIGATION OUTREACH Action/FYI Lvm MYCHART MESSAGE SENT FOLLOW UP 06-02-22 BP CONTROLLED (<130/80) Never done MAMMOGRAM Never done INFLUENZA(1) due on 01/27/2022 Pt identified by name and : NO Outreach Outcome/Action Unable to reach patient: Left message MyChart message sent Did you use a PCP flex slot to schedule this appointment? N/A Reason for Outreach Care Gap or Scheduling/Wellness visits Payer: Payor: MEDICARE / Plan: MEDICARE A AND B / Product Type: Medicare / Care Gap Reviewed:: Breast Cancer screening Controlling Blood Pressure Flu vaccine Reminder: Reminder note to check Health Maintenance for items below Health Maintenance items due: COVID-19 VACCINE(1) Never done BP CONTROLLED (<130/80) Never done MAMMOGRAM Never done SHINGRIX VACCINE(1 of 2) Never done PNEUMOCOCCAL: 65+(1 - PCV) Never done DEPRESSION ASSESSMENT Never done INFLUENZA(1) due on 01/27/2022 Message Sent to Practice: No Navigation Signature: Lily Shelton MA April 20, 2022 11:33 AM documented in this encounter [facility] 04-19-2022 Miscellaneous Notes Pt advised of Marilyn's message with verbalizes understanding. Pt will complete labs. Pt states she is working an extra day and that is why she has had to cancel appointments. Pt will call back to reschedule appointment, did not want to schedule at this time. Taylor Vasquez LPN Attempted to contact . Call was picked up and could hear background noise but no one responded. Will try again later. Taylor Vasquez LPN It's possible it was just a misunderstanding with scheduling but I don't know as we don't have control of that department. She had an appointment on 04/14 that was never cancelled by the scheduling department and therefore marked as no show. The letter is sent as a policy and also a reminder for patients who may have not realized they missed an appointment. She was actually due to repeat her labs back in december and never did. I will put in new order. She was also supposed to be seen in december for repeat BP and that's the appointment that she has cancelled 6 times. Marilyn Hair PA-C Pt calls in regards to a letter she received stating she 'No Showed for two appts. Pt reports she has always called in to cancel her appts. Pt states the last appt she had to work later and called the office and cancelled appt. Pt reports she is upset because she is very conscientious about these things. Also pt thinks it is time to get liver lab checked. Asking for an order to be placed. Call pt when this has been done. Lisa Pena LPN documented in this encounter [facility] 02-28-2022 Miscellaneous Notes Pt called and is notified of providers message. Pt voices understanding. Pt put through to scheduling to make establishing appointment for . Christine Lanza RN Dr Meng will let a pt's spouse establish care with him. Advised pt to call back for message. Pt can get her scheduled to est care with Dr Meng. Taylor Vasquez LPN Patient calling asking if Dr. Meng would be willing to take on her as a new patient. Please advise and call patient. documented in this encounter [facility] 01-18-2022 Miscellaneous Notes Patient calls and notified of provider response. Patient voiced understanding. Patient declining prescription medication at this time. Patient will see what happens and will call back if she feels like she needs provider to call in Singulair or kirsten prescription. Ada Tipton RN Called and left a voicemail for the Patient to call back and ask for a nurse to receive the providers message. Christine Lanza RN Let patient know I have never sent in a script for kirsten D for her. Also with having hypertension I would not send one in now. I'm willing to send in a script for plain Kirsten without a decongestant, since the decongestant can raise her BP and increase the risk of a heart attack or stroke. I can also try her on Singulair 10 mg before bed for allergies Pt called in and reports she would like provider to send a refill of Kirsten D 12 hr to [facility] in [place] for her. She reports provider have sent it before as you can't get it OTC. She is asking if she could get more than just the 10 pill and at least 1 refill for her allergies. I could not find under medication history. Please call Pt once ordered. documented in this encounter [facility] 12-23-2021 History of Present illness Narrative Chief Complaint Patient presents with: Recheck HPI Nelsy Hu is a 71 year old female who presents here today for recheck. Patient here for recheck on her BP and liver enzymes. Home BP running higher too. Last 3 Encounter BP Readings: Date: BP: 12/23/2021 148/82 11/26/2021 158/88 11/23/2021 159/84[bp lien average[ Past medical history, appointments, medications, allergies reviewed. Previous Medical History PAST MEDICAL HISTORY Diagnosis Date Arthritis of both knees 04/29/2020 Sever on right and moderate on left of medial joint spaces. Elevated fasting glucose 07/08/2019 Family history of thyroid disease 10/25/2016 Hemorrhage of rectum and anus 08/03/2005 Medicare annual wellness visit, subsequent 10/25/2016 last done: 10/25/2016 Pain in left knee 05/06/2015 Varicose veins 05/06/2015 Previous Surgical History PAST SURGICAL HISTORY Procedure Laterality Date COLONOSCOPY 2005 FECAL OCCULT BLOOD TEST 11/08/2016 negative PAST SURGICAL HISTORY OF 1977 varicose veins stripped bilateral. PAST SURGICAL HISTORY OF sclerotherapy several times PAST SURGICAL HISTORY OF 2007 anterior vaginal repair prolapse Family History FAMILY HISTORY Problem Relation Age of Onset Alzheimer's Disease Father Diabetes Paternal Grandmother Stroke Maternal Grandfather Cancer Mother smoker Thyroid Mother Patient Allergies ALLERGIES No Known Allergies Current Medications Current Outpatient Medications on File Prior to Visit Medication Sig fluticasone (FLONASE) 50 mcg/actuation nasal spray Use 2 Sprays in each nostril once daily. Rinse mouth after use. Cholecalciferol, Vitamin D3, 1,000 unit cap Take 2,000 Units by mouth once daily. cefADROxil (DURICEF) 500 mg capsule Take 1 capsule by mouth twice daily. diclofenac, EC, (VOLTAREN) 75 mg EC tablet Take 1 tablet by mouth twice daily. For pain/inflammation. Take with food. BIOTIN, BULK, MISC (Patient not taking: Reported on 10/19/2020 ) No current facility-administered medications on file prior to visit. Social History Social History Tobacco Use Smoking status: Never Smoker Smokeless tobacco: Never Used Vaping Use Vaping Use: Never used Substance Use Topics Alcohol use: Yes Comment: ocassional wine Drug use: Never Review of Symptoms REVIEW OF SYSTEMS see hpi EXAM: BP 148/82 (BP Site: Right Arm, BP Position: Sitting, BP Cuff Size: Regular Adult) Pulse 72 Resp 16 Wt 57.6 kg (127 lb) BMI 24.45 kg/m General Appearance: Well appearing, alert, in no acute distress, well-hydrated, well nourished.. Health Maintenance List COVID-19 VACCINE(1) Never done MAMMOGRAM Never done SHINGRIX VACCINE(1 of 2) Never done PNEUMOCOCCAL: 65+(1 - PCV) Never done INFLUENZA(1) due on 01/27/2022 COLORECTAL CANCER SCREENING due on 09/01/2022 DEPRESSION SCREENING due on 11/23/2022 DIABETES SCREEN due on 11/23/2024 DTAP,TDAP,TD(2 - Td or Tdap) due on 12/01/2024 LIPID SCREEN due on 11/23/2026 BONE DENSITY Completed ADVANCE DIRECTIVE DISCUSSION Completed HEPATITIS C SCREENING Completed Data reviewed Component Latest Ref Rng & Units 11/25/2021 12/21/2021 Albumin 3.9 - 4.9 g/dL 4.4 4.2 Bilirubin, Total 0.2 - 1.3 mg/dL 0.4 0.5 Bilirubin, Conjug <0.2 mg/dL <0.2 <0.2 Alkaline Phosphatase 34 - 123 U/L 94 83 AST 13 - 35 U/L 159 (H) 113 (H) ALT 7 - 38 U/L 275 (H) 168 (H) Protein, Total 6.3 - 8.0 g/dL 7.0 6.9 GGT 6 - 46 U/L 40 ASSESSMENT/PLAN: 1. Hypertension, essential - ICD9: 401.9, ICD10: I10 (primary diagnosis) - newly diagnosed - Add lisinopril (Zestril/Prinivil) - Recommended regular aerobic exercise. - Recommend home blood pressure monitoring, to bring results in on next visit - Recheck 4 months. - Goal of BP <130/80 - COMP METABOLIC PANEL 2. Elevated LFTs - ICD9: 790.6, ICD10: R79.89 Improving. Recheck in 1 month. - COMP METABOLIC PANEL Marilyn Hair PA-C documented in this encounter [facility] 11-26-2021 History of Present illness Narrative Chief Complaint Patient presents with: Recheck HPI Nelsy Hu is a 71 year old female who presents here today for recheck. Patient scheduled herself for visit today due to the abnormal test results. Her routine labs showed increases in Liver enzymes. Patient denies any symptoms. Only taking diclofenac Denies use of tylenol or alcohol. Past medical history, appointments, medications, allergies reviewed. Previous Medical History PAST MEDICAL HISTORY Diagnosis Date Arthritis of both knees 04/29/2020 Sever on right and moderate on left of medial joint spaces. Elevated fasting glucose 07/08/2019 Family history of thyroid disease 10/25/2016 Hemorrhage of rectum and anus 08/03/2005 Medicare annual wellness visit, subsequent 10/25/2016 last done: 10/25/2016 Pain in left knee 05/06/2015 Varicose veins 05/06/2015 Previous Surgical History PAST SURGICAL HISTORY Procedure Laterality Date COLONOSCOPY 2005 FECAL OCCULT BLOOD TEST 11/08/2016 negative PAST SURGICAL HISTORY OF 1978 varicose veins stripped bilateral. PAST SURGICAL HISTORY OF sclerotherapy several times PAST SURGICAL HISTORY OF 2007 anterior vaginal repair prolapse Family History FAMILY HISTORY Problem Relation Age of Onset Alzheimer's Disease Father Diabetes Paternal Grandmother Stroke Maternal Grandfather Cancer Mother smoker Thyroid Mother Patient Allergies ALLERGIES No Known Allergies Current Medications Current Outpatient Medications on File Prior to Visit Medication Sig cefADROxil (DURICEF) 500 mg capsule Take 1 capsule by mouth twice daily. diclofenac, EC, (VOLTAREN) 75 mg EC tablet Take 1 tablet by mouth twice daily. For pain/inflammation. Take with food. fluticasone (FLONASE) 50 mcg/actuation nasal spray Use 2 Sprays in each nostril once daily. Rinse mouth after use. BIOTIN, BULK, MISC (Patient not taking: Reported on 10/19/2020 ) Cholecalciferol, Vitamin D3, 1,000 unit cap Take 2,000 Units by mouth once daily. No current facility-administered medications on file prior to visit. Social History Social History Tobacco Use Smoking status: Never Smoker Smokeless tobacco: Never Used Vaping Use Vaping Use: Never used Substance Use Topics Alcohol use: Yes Comment: ocassional wine Drug use: Never Review of Symptoms REVIEW OF SYSTEMS see HPI all others neg and noncontrib. EXAM: BP 158/88 Pulse 72 Resp 14 Wt 56.2 kg (124 lb) BMI 23.87 kg/m General Appearance: Well appearing, alert, in no acute distress, well-hydrated, well nourished.. Abdomen: Normal abdominal exam, Abdomen soft, non-tender. Bowel sounds normal. No masses, organomegaly. Health Maintenance List COVID-19 VACCINE(1) Never done MAMMOGRAM Never done SHINGRIX VACCINE(1 of 2) Never done PNEUMOCOCCAL: 65+(1 - PCV) Never done INFLUENZA(1) due on 01/27/2022 COLORECTAL CANCER SCREENING due on 09/01/2022 DEPRESSION SCREENING due on 11/23/2022 DIABETES SCREEN due on 11/23/2024 DTAP,TDAP,TD(2 - Td or Tdap) due on 12/01/2024 LIPID SCREEN due on 11/23/2026 BONE DENSITY Completed ADVANCE DIRECTIVE DISCUSSION Completed HEPATITIS C SCREENING Completed Data reviewed Component Latest Ref Rng & Units 11/23/2021 11/25/2021 Protein, Total 6.3 - 8.0 g/dL 7.0 7.0 Albumin 3.9 - 4.9 g/dL 4.3 4.4 Calcium 8.5 - 10.2 mg/dL 9.8 Bilirubin, Total 0.2 - 1.3 mg/dL 0.7 0.4 Alkaline Phosphatase 34 - 123 U/L 91 94 AST 13 - 35 U/L 163 (H) 159 (H) ALT 7 - 38 U/L 262 (H) 275 (H) Glucose 74 - 99 mg/dL 96 BUN 7 - 21 mg/dL 18 Creatinine 0.58 - 0.96 mg/dL 0.74 Sodium 136 - 144 mmol/L 140 Potassium 3.7 - 5.1 mmol/L 4.3 Chloride 97 - 105 mmol/L 105 CO2 22 - 30 mmol/L 26 Anion Gap 9 - 18 mmol/L 9 eGFR >=60 mL/min/1.73m 87 Color Yellow Yellow Clarity Clear Slightly Cloudy (A) Glucose, Urine Negative Negative Bilirubin, Urine Negative Negative Ketones, Urine Negative Trace (A) Specific Watts, Ur 1.005 - 1.030 1.024 Hemoglobin/Blood,Ur Negative Negative pH, Urine 5.0 - 8.0 5.0 Protein, Urine Negative Negative Urobilinogen Negative Negative Nitrites Negative Negative Leukest Negative 3+ (A) WBC, Urine 0-5 /HPF 0-5 /HPF RBC, Urine 0-3 /HPF 0-3 /HPF Epithelial Cells /HPF Few Hyaline Cast 0 /LPF 1-3 /LPF (A) Bilirubin, Conjug <0.2 mg/dL <0.2 US ABD RT UPPER 11/25/21 RESULT: Pancreas: Normal sonographic appearance in the visualized portions. Portions obscured: tail Liver: Echotexture: Homogeneous Echogenicity: Normal Surface contour: Smooth Lesions: None. Biliary: No intrahepatic biliary duct dilation. CBD: 4 mm in diameter. Gallbladder: Normal caliber -Contents: No cholelithiasis -Wall: 2 mm in thickness -Other: Negative sonographic Osborne's sign. Kidneys: The right kidney measures 11.1 cm in length and the left kidney measures 10.9 cm in length. There is a 1.5 x 1.3 x 1.4 cm cyst in the interpolar right kidney. Spleen: The spleen is normal in size measuring 8.5 cm in length. No sonographic abnormalities visualized. ASSESSMENT/PLAN: 1. Elevated LFTs - ICD9: 790.6, ICD10: R79.89 (primary diagnosis) Unclear etiology. Benign exam and US Recheck levels in 1 month. Discussed possible red flags and when to seek medical attention. - HEPATIC FUNCTION PNL - GGT BLD 2. Abnormal levels of other serum enzymes - ICD9: 790.5, ICD10: R74.8 As above - GGT BLD 3. Renal cyst - ICD9: 753.10, ICD10: N28.1 Marilyn Hair PA-C documented in this encounter [facility] 11-25-2021 History of Present illness Narrative Radiology Service Progress Note PATIENT NAME: Nelsy Hu DATE OF SERVICE: November 25, 2021 TIME: 2:34 PM PATIENT IDENTITY VERIFICATION COMPLETED USING TWO (2) IDENTIFIERS: Name and Date of confirmed by patient verbally. FALL SCREENING: Has the patient had 2 falls in the last year or 1 fall with injury or currently using an Ambulatory Assistive Device (Walker, Cane, Wheelchair, Crutches, etc.)? No PATIENT GENDER DATA: Female. status: : No status: NO. PATIENT RELEVANT IMPLANT DATA REVIEWED: Not Applicable RADIOLOGY DEPARTMENT: Ultrasound PERIPHERAL IV DATA: Not applicable SIGNED BY: RT Lakeshia(R) November 25, 2021 2:34 PM documented in this encounter [facility] 11-24-2021 Miscellaneous Notes Patient returned call and given providers message below with verbalized understanding. Left message for patient to call back and speak to nurse [place] Albert Ma Let patient know that liver enzymes are elevated. Need a repeat to trend done tomorrow and need a US of liver Is she having any RUQ pain? Cholesterol is high. Needs to start watching diet. a1c is normal. CBC show borderline high hemoglobin which is overall stable compared to previous labs. Thanks. Marilyn Hair PA-C documented in this encounter [facility] 11-23-2021 History of Present illness Narrative Medicare Yearly Visit Medical B eligibilty date 07/28/15 Date of last exam 10/19/20 PAST MEDICAL HISTORY Diagnosis Date Arthritis of both knees 04/29/2020 Sever on right and moderate on left of medial joint spaces. Elevated fasting glucose 07/08/2019 Family history of thyroid disease 10/25/2016 Hemorrhage of rectum and anus 08/03/2005 Medicare annual wellness visit, subsequent 10/25/2016 last done: 10/25/2016 Pain in left knee 05/06/2015 Varicose veins 05/06/2015 PAST SURGICAL HISTORY Procedure Laterality Date COLONOSCOPY 2005 FECAL OCCULT BLOOD TEST 11/08/2016 negative PAST SURGICAL HISTORY OF 1977 varicose veins stripped bilateral. PAST SURGICAL HISTORY OF sclerotherapy several times PAST SURGICAL HISTORY OF 2007 anterior vaginal repair prolapse ALLERGIES: Patient has no known allergies. Medications reviewed: Yes FAMILY HISTORY Problem Relation Age of Onset Alzheimer's Disease Father Diabetes Paternal Grandmother Stroke Maternal Grandfather Cancer Mother smoker Thyroid Mother SOCIAL HISTORY: Social History Tobacco Use Smoking status: Never Smoker Smokeless tobacco: Never Used Vaping Use Vaping Use: Never used Substance Use Topics Alcohol use: Yes Comment: ocassional wine Drug use: Never Nelsy likes to exercise by walking. She watches her diet for sodium, low fat and low cholesterol most of the time. List of current specialists seen: none End of Live Planning discussed including patients advanced directive wishes: Yes I am willing to follow Nelsy's advanced directives. PHQ-2 / Depression screen PHQ-2 Score: 0 Depression Screening 10/25/2016 11/23/2021 PHQ-2 Score 0 0 Depression screening tool completed and reviewed. Based on score and interview, patient is not at risk for depression. Screening tool discussed with patient, and I recommended no further intervention at this time. Functional Ability/Safety Screen 1. Was the patient's timed Up and Go test unsteady or longer than 30 seconds? No 2. Does the patient need help with the phone, transportation, shopping,preparing meals, housework, laundry, medications or managing money? No 3. Does your home have rugs in the hallway (Y), lack of grab bars in the bathroom (Y), lack of handrails on the stairs or have poor lighting? No Hearing Evaluation: normal PHYSICAL EXAM BP 162/96 (BP Site: Left Arm, BP Position: Sitting, BP Cuff Size: Regular Adult) Pulse 72 Temp 36.9 C (98.5 F) Resp 16 Ht 153.5 cm (5' 0.43 ) Wt 56.7 kg (125 lb) BMI 24.06 kg/m Alert and oriented X 3: YES Body mass index is 24.06 kg/m . Visual acuity: sees opto ASSESSMENT/PLAN: 71 year old female The following prevention plan was discussed during the office visit and provided to the patient: See below. Marilyn Hair PA-C Chief Complaint Patient presents with: Medicare Wellness Exam HPI Nelsy Hu is a 71 year old female who presents here today for extensive exam. Patient with hx of osteoporosis, elevated glucose, elevated BP, chronic knee pain, and those as below. No specific concerns today other than some increase sinus pressure again. Was seen approx 1 month ago with similar symptoms. Did improve with atb. Past medical history, appointments, medications, allergies reviewed. Previous Medical History PAST MEDICAL HISTORY Diagnosis Date Arthritis of both knees 04/29/2020 Sever on right and moderate on left of medial joint spaces. Elevated fasting glucose 07/08/2019 Family history of thyroid disease 10/25/2016 Hemorrhage of rectum and anus 08/03/2005 Medicare annual wellness visit, subsequent 10/25/2016 last done: 10/25/2016 Pain in left knee 05/06/2015 Varicose veins 05/06/2015 Previous Surgical History PAST SURGICAL HISTORY Procedure Laterality Date COLONOSCOPY 2005 FECAL OCCULT BLOOD TEST 11/08/2016 negative PAST SURGICAL HISTORY OF 1977 varicose veins stripped bilateral. PAST SURGICAL HISTORY OF sclerotherapy several times PAST SURGICAL HISTORY OF 2007 anterior vaginal repair prolapse Family History FAMILY HISTORY Problem Relation Age of Onset Alzheimer's Disease Father Diabetes Paternal Grandmother Stroke Maternal Grandfather Cancer Mother smoker Thyroid Mother Patient Allergies ALLERGIES No Known Allergies Current Medications Current Outpatient Medications on File Prior to Visit Medication Sig diclofenac, EC, (VOLTAREN) 75 mg EC tablet Take 1 tablet by mouth twice daily. For pain/inflammation. Take with food. fluticasone (FLONASE) 50 mcg/actuation nasal spray Use 2 Sprays in each nostril once daily. Rinse mouth after use. Cholecalciferol, Vitamin D3, 1,000 unit cap Take 2,000 Units by mouth once daily. cefADROxil (DURICEF) 500 mg capsule Take 1 capsule by mouth twice daily. (Patient not taking: Reported on 11/23/2021 ) meclizine (ANTIVERT) 25 mg tab Take 25 mg by mouth three times daily. (Patient not taking: Reported on 10/22/2021 ) BIOTIN, BULK, MISC (Patient not taking: Reported on 10/19/2020 ) Sjubliupfty-Utrwnzrvw-Ucc C-Mn (GLUCOSAMINE CHONDROITIN MAXSTR) 500-400 mg cap Take 1 capsule by mouth three times daily. (Patient not taking: Reported on 10/19/2020 ) No current facility-administered medications on file prior to visit. Social History Social History Tobacco Use Smoking status: Never Smoker Smokeless tobacco: Never Used Vaping Use Vaping Use: Never used Substance Use Topics Alcohol use: Yes Comment: ocassional wine Drug use: Never Review of Symptoms REVIEW OF SYSTEMS GENERAL: No weight loss, malaise or fevers HEENT: see hpi No changes in hearing or vision, no nose bleeds NECK: Negative for lumps, goiter, pain and significant neck swelling RESPIRATORY: Negative for cough, hemoptysis, wheezing, COPD, dyspnea or shortness of breath CARDIOVASCULAR: Negative for chest pain, leg swelling, CHF or palpitations GI: Negative for abdominal discomfort, blood in stools or black stools, change in bowel habit, heart burn, nausea, vomiting : No history of dysuria, frequency or incontinence 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 SKIN: Negative for lesions, rash, and itching PSYCH: Negative for sleep disturbance, mood disorder and recent psychosocial stressors HEMATOLOGY/LYMPHOLOGY: Negative for prolonged bleeding, bruising easily or swollen nodes ENDOCRINE: Negative for cold or heat intolerance, polyuria, polydipsia and goiter NEURO: No history of headaches, syncope, paralysis, seizures or tremors EXAM: BP 162/96 (BP Site: Left Arm, BP Position: Sitting, BP Cuff Size: Regular Adult) Pulse 72 Temp 36.9 C (98.5 F) Resp 16 Ht 153.5 cm (5' 0.43 ) Wt 56.7 kg (125 lb) BMI 24.06 kg/m General Appearance: Well appearing, alert, in no acute distress, well-hydrated, well nourished.. Skin: Skin color, texture, turgor normal, no suspicious rashes or lesions. Head: Normocephalic, no masses, lesions, tenderness or abnormalities. Eyes: Anicteric sclera. Pupils are equally round and reactive to light. Extraocular movements are intact. . Ears: External ears normal, canals clear, TMs pearly beavers. Nose/Sinuses: sinus pressure to palp. Oropharynx: deferred- mask. Neck: Supple, no adenopathy; thyroid symmetric, normal size, no bruits. Lungs: Lungs clear to auscultation. No wheezing, rhonchi, rales.. Heart: RRR without murmur, gallop, or rubs. No ectopy. Abdomen: Normal abdominal exam, Abdomen soft, non-tender. Bowel sounds normal. No masses, organomegaly. Extremities: No deformities, edema, skin discoloration, clubbing or cyanosis. Good capillary refill. . Peripheral Pulses: Normal. Neurologic: Gait normal. Reflexes normal and symmetric. Sensation grossly intact.. Health Maintenance List COVID-19 VACCINE(1) Never done MAMMOGRAM Never done SHINGRIX VACCINE(1 of 2) Never done PNEUMOCOCCAL: 65+(1 - PCV) Never done ADVANCE DIRECTIVE DISCUSSION Never done INFLUENZA(Season Ended) due on 01/27/2022 COLORECTAL CANCER SCREENING due on 09/01/2022 DEPRESSION SCREENING due on 11/23/2022 DIABETES SCREEN due on 10/20/2023 DTAP,TDAP,TD(2 - Td or Tdap) due on 12/01/2024 LIPID SCREEN due on 10/19/2025 BONE DENSITY Completed HEPATITIS C SCREENING Completed Data reviewed n/a ASSESSMENT/PLAN: 1. Medicare annual wellness visit, subsequent - ICD9: V70.0, ICD10: Z00.00 (primary diagnosis) - Counseled on healthy diet and regular exercise - Calcium intake with supplements or by diet of 1000 mg/day for under 50, 1219-9484 mg/day for 50+ 2. Advance directive discussed with patient - ICD9: V65.49, ICD10: Z71.89 updated 3. Encounter for screening mammogram for malignant neoplasm of breast - ICD9: V76.12, ICD10: Z12.31 - BERNARD SCREENING 4. Elevated blood pressure reading without diagnosis of hypertension - ICD9: 796.2, ICD10: R03.0 Discussed with patient that we may need to start considering BP lowering meds. - Encouraged dietary sodium restriction/DASH diet - Recommended regular aerobic exercise. - Recommend home blood pressure monitoring, to bring results in on next visit - Goal of BP <130/80 - URINALYSIS, WITH MICROSCOPIC 5. Elevated fasting glucose - ICD9: 790.21, ICD10: R73.01 Await labs 6. Arthritis of both knees - ICD9: 716.96, ICD10: M17.0 Continue with ortho 7. Age-related osteoporosis without current pathological fracture - ICD9: 733.01, ICD10: M81.0 - Reviewed the need for Calcium and Vitamin D supplements and weight bearing exercise as tolerated Recheck BP in 3-4 weeks. Marilyn Hair PA-C I spent a total of 40 minutes on the date of the service which included preparing to see the patient, obkv-rl-ggji patient care, completing clinical documentation, obtaining and/or reviewing separately obtained history, performing a medically appropriate examination, counseling and educating the patient/family/caregiver and ordering medications, tests, or procedures. documented in this encounter [facility] 10-23-2021 Miscellaneous Notes Patient was notified [place] [facility] Ma Let patient know her COVID test was normal. documented in this encounter [facility] 10-22-2021 Miscellaneous Notes notified. Logistics Clerk please reach out and schedule patient a establish/physical with Dr. Meng/Marilyn Kwon MA Yes. That is ok. Patient calling asking if Dr Meng would take her (Sergey Hu, 01/14/1956) as his patient? He has no Dr right now. He has not been seen in [facility] system at all. She said he is in good health, still working, 32 years at his job. Please advise documented in this encounter [facility] 09-27-2021 History of Present illness Narrative Miesha Jefferson PA-C Department of Orthopaedics Orthopaedics [address] [facility] [address] Dept: [phone] Dept September 27, [address] Marilyn Hair for an opinion regarding left knee pain. My final recommendations will be communicated back to the requesting physician by way of shared Medical record or letter to requesting physician via US mail. CHIEF COMPLAINT: New and Pain of the Left Knee Ms. Nelsy Hu is a 71 year old female she presents with left knee pain and stiffness that has been getting worse over the past year. Pain today is a 6 out of 10 aching that is worse when she sits for long periods of time with the knee bent. She complains that when she rises from a seating position she gets some locking or catching of the knee and feels as though she is limping for a period of time. Patient was given some oral diclofenac by her primary care provider but admits that she is not taking it on a regular basis. 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 She denies any previous left knee injuries. No swelling of the knee. She is still very active and is discouraged by the stiffness in her knee. ASSESSMENT: M17.12 Primary osteoarthritis of left knee (primary encounter diagnosis) M25.562, G89.29 Chronic pain of left knee PLAN: Patient has left knee osteoarthritis. We compared x-rays that she had in 2019 and x-rays done today, unfortunately looks as though her arthritis is progressing. We discussed having her take the oral diclofenac on a regular basis to see if that helps with her stiffness. We discussed having her follow-up for a corticosteroid injection or potentially trying a different oral anti-inflammatory if needed. We also briefly discussed her surgical options. Ms. Nelsy Hu was advised as to contrast therapies and/or to take analgesics/anti-inflammatories as needed and all contraindications were reviewed. OBJECTIVE: Ms. Nelsy Hu is a pleasant 71 year old in no apparent distress. Gen:There were no vitals taken for this visit. nl development, non obese, no deformities ENT: Normocephalic, normal hearing, moist mucosa CV: Pulses:Radial= 2+ and symmetric, capillary refill < 2 secs, no peripheral edema/varicosities Skin: no rash, bruising or lesions. Good turgor. Psych: cooperative and appropriate, alert and oriented x 3, good mood and affect. Musculoskeletal: KNEE EXAM: Left: Alignment: Varus deformity, Partially Correctable Range of motion is lacking a few degrees secondary to tight hamstrings degrees in extension and 120 degrees of flexion. Extension Lag: < 10 degrees Pain with ROM: Yes Effusion: Slight Tender to the palpation of Medial femoral condyle and Medial joint line Pain with patellar compression: No Stability: Anterior/Posterior stable and Varus/Valgus stable Hip Exam: flexion to 100+ degrees, full extension, internal/external rotation adequate and no pain with log roll Neurovascular Status: Sensation Intact, Moves foot and ankle up & down and 2+ dorsalis pedis Imaging: IMPRESSION: Osteoarthritis as described. Cooker Pie Filling: PSCB Transcribe Date/Time: Sep 27 2021 11:10A Dictated by : JHONATHAN BLAKE MD This examination was interpreted and the report reviewed and electronically signed by: JHONATHAN BLAKE MD on Sep 27 2021 11:11AM EST Results-Findings * * *Final Report* * * DATE OF EXAM: Sep 27 2021 9:54AM WRX [id number] - XR KNEE 4V AP/PA BOTH+LAT/YULIYA LT / PROCEDURE REASON: Left knee pain, unspecified chronicity * * * * Physician Interpretation * * * * CLINICAL INDICATION: Knee pain TECHNIQUE: AP/PA/merchant radiographs of both knees and lateral radiograph of the left knee COMPARISON: Radiograph dated April 14, 2020 FINDINGS: Left knee: Small suprapatellar joint effusion. No acute fracture or dislocation. Severe medial compartmental joint space narrowing with marginal osteophyte formation and subchondral sclerosis. Mild to moderate patellofemoral compartmental joint space narrowing with small marginal osteophyte formation. Right knee: No acute fracture or dislocation. Mild to moderate medial compartmental joint space narrowing with miniscule osteophyte formation. Mild to moderate patellofemoral compartmental joint space narrowing. Supporting Subjective Information Below: Past Surgical History: PAST SURGICAL HISTORY Procedure Laterality Date COLONOSCOPY 2005 FECAL OCCULT BLOOD TEST 11/08/2016 negative PAST SURGICAL HISTORY OF 1977 varicose veins stripped bilateral. PAST SURGICAL HISTORY OF sclerotherapy several times PAST SURGICAL HISTORY OF 2007 anterior vaginal repair prolapse Medications: Current Outpatient Medications Medication Sig diclofenac, EC, (VOLTAREN) 75 mg EC tablet Take 1 tablet by mouth twice daily. For pain/inflammation. Take with food. Cholecalciferol, Vitamin D3, 1,000 unit cap Take 2,000 Units by mouth once daily. meclizine (ANTIVERT) 25 mg tab Take 25 mg by mouth three times daily. fluticasone (FLONASE) 50 mcg/actuation nasal spray Use 2 Sprays in each nostril once daily. Rinse mouth after use. BIOTIN, BULK, MISC (Patient not taking: Reported on 10/19/2020 ) Bkmesbtcwvj-Bhiwewztz-Hgj C-Mn (GLUCOSAMINE CHONDROITIN MAXSTR) 500-400 mg cap Take 1 capsule by mouth three times daily. (Patient not taking: Reported on 10/19/2020 ) No current facility-administered medications for this visit. Allergies: Patient has no known allergies. ROS: General (negative for fatigue, malaise, weight loss/gain) HEENT (negative for headache, earache, recent vision changes, sinus pain, sore throat) Respiratory (no recent shortness of breath, hemoptysis) CV (negative for chest tightness, palpitations) Musculoskeletal (see HPI) Psych (no depression, anxiety) This note was partially generated using [employer] voice recognition system, and there may be some incorrect words, spellings, and punctuation that were not noted in checking the note before saving. Miesha Jefferson PA-C AMB ROOMING INTAKE FLOWSHEET DATA Risk Screening Do you have concerns about personal safety or safety in the home?: No Pain Pain Level: 6 Pain Location: Knee-Left Description: Other: See comment, Stiffness (locks) Duration Amount of Time: 1 Duration Units: Years Frequency: Continuous Intervention/Comfort measure: Medication Patient here today for left knee pain x 1 year. She reports that she notices that she limps to walk. 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 New x-ray today at [facility]. documented in this encounter [facility] 09-27-2021 History of Present illness Narrative Radiology Service Progress Note PATIENT NAME: Nelsy Hu DATE OF SERVICE: September 27, 2021 TIME: 9:41 AM PATIENT IDENTITY VERIFICATION COMPLETED USING TWO (2) IDENTIFIERS: Name and Date of confirmed by patient verbally. FALL SCREENING: Has the patient had 2 falls in the last year or 1 fall with injury or currently using an Ambulatory Assistive Device (Walker, Cane, Wheelchair, Crutches, etc.)? No PATIENT GENDER DATA: Female. status: : No status: NO. PATIENT RELEVANT IMPLANT DATA REVIEWED: Not Applicable RADIOLOGY DEPARTMENT: General X-ray: Exam(s) Completed: Lower Extremity X-Ray(s): Knee, AP / Lat / Tunne / Merchant Left and Wt. Bearing PERIPHERAL IV DATA: Not applicable SIGNED BY: RT Antony(R) September 27, 2021 9:41 AM documented in this encounter [facility] 05-31-2021 Note Discharge Summary PHYSICAL THERAPY Referral/Discharge Information: Date of Discharge: 05/31/21 Date of Last Visit: 02/22/21 Date of Evaluation: 01/25/21 Number of Attended Visits: 4 Referred by: Marilyn Hair PA-C Referred for: L knee pain Problems/Issues Addressed: (increased pain, decreased knee ROM/LE strength) Status at Discharge: (unknown) Reason for Discharge: Has not attended PT in past 30 days. Signatures Electronically signed by : Ashley Tinajero, PT; May 31 2021 12:02PM EST (Author) [facility] 01-22-2021 History of Present illness Narrative Pt has attended 4 visits of PT for L knee pain consisting of evaluation, ther ex, manual, gait training, and home exercises. No significant improvement with regards to knee ROM, pain, or ability as assessed by LEFS since evaluation; however, pt notes difficulty attending PT sessions and completing HEP this past month secondary to personal factors. Patient cont to c/o knee pain with walking/stairs - encouraged to call MD re cont symptoms and to cont with skilled PT 2x/wk for 4 weeks to further increase flexibility/ROM, increase LE strength for decreased pain with gait.Discussed possible aquatic PT benefits, patient not interested in pool trial at this time.Response to treatment: improved flexibility.Patient was able to complete today's treatment with some difficulty. [facility] Work Phone: 12-30-2020 Note - From: Kylah Lugo To: CCN - Administrative; Sent: 11/11/2020 12:58:53 EDT Show up: 12/11/2020 12:58:00 EDT Subject: Ambulatory Reminder Due Date/Time: 12/23/2020 12:58:00 EDT Reminder/Recall Pt wants to rechedule in 1 month Message left for patient to call and reschedule. Message left for patient to call and reschedule. Message left for patient, and letter sent per policy. [facility] 10-27-2020 Emergency department Note ED PROVIDER NOTE [facility] EMERGENCY DEPARTMENT NAME: Liam Hu AGE: 70 y.o. : 1950 VISIT DATE: 10/27/2020 CSN: [id number] PCP: Marissa Chakraborty MD Chief Complaint Patient presents with Nasal Congestion Chief complaint congestion History of present illness this is a 70-year-old female who has a history of seasonal rhinitis states that since last few days she has had nasal drainage that is greenish-yellowish active cough. And frontal and maxillary discomfort the symptoms of been moderate she has not used any medications. Treatments denies any strokelike symptoms passing out. Or photosensitivity is here with a blood pressure 157/92 pulse is 67 respiratory rate is 16 pulse ox 96% temp 97 7 Past Medical History: Diagnosis Date Colon polyp 09/01/2016 [facility]/Dr. Bijan Carrillo Small polyp 3mm Hemorrhoids 09/01/2016 [facility]/Dr. Bijan Carrillo Rectum revealed small internal hemorrhoids Left tennis elbow 02/08/2018 Tubular adenoma 09/01/2016 [facility]/Dr. Bijan Carrillo Varicose veins of both lower extremities 1974 Past Surgical History: Procedure Laterality Date BLADDER SUSPENSION 2005 COLONOSCOPY W/ BIOPSIES 09/01/2017 Dr Carrillo PAP TEST 02/2017 [facility]/Dr. Bijan Carrillo SCLEROTHERAPY Bilateral 2000; 2009 DR MADRIGAL/DR NGUYEN VAGINAL PROLAPSE REPAIR 2006 VEIN SURGERY Right 10/24/2000 High ligation & division greater saphenous vein-Dr. Madrigal VEIN SURGERY Bilateral 1975 bilateral stripping-[facility] VEIN SURGERY Left 2000 ligation & division greater saphenous vein-Dr Madrigal Family History Problem Relation Age of Onset Cancer Mother Lung cancer Mother Alzheimer's disease Father Thyroid disease Sister No Known Problems Daughter No Known Problems Son Social History Socioeconomic History Marital status: Spouse name: Vitor Number of children: 3 Years of education: 13 Highest education level: High school graduate Occupational History Not on file Tobacco Use Smoking status: Never Smoker Smokeless tobacco: Never Used Vaping Use Vaping Use: Never used Substance and Sexual Activity Alcohol use: Yes Comment: 5 glasses of wine a month Drug use: No Sexual activity: Yes Partners: Male control/protection: Post-menopausal Other Topics Concern Not on file Social History Narrative Not on file Social Determinants of Health Financial Resource Strain: Difficulty of Paying Living Expenses: Food Insecurity: Worried About Running Out of Food in the Last Year: Ran Out of Food in the Last Year: Transportation Needs: Lack of Transportation (Medical): Lack of Transportation (Non-Medical): Physical Activity: Days of Exercise per Week: Minutes of Exercise per Session: Stress: Feeling of Stress : Social Connections: Frequency of Communication with Friends and Family: Frequency of Social Gatherings with Friends and Family: Attends [employer] Services: Active Member of Clubs or Organizations: Attends Club or Organization Meetings: Marital Status: Previous Medications Medication Sig BIOTIN, BULK, MISC cholecalciferol, vitamin D3, 1,000 unit capsule Take 1,000 Units by mouth Takes 1-2 tablets daily. comp stocking, knee,long,small Misc 1 Units by Miscellaneous route daily. fluticasone (FLONASE) 50 mcg/actuation nasal spray Instill 2 (two) sprays into each nostril daily. (Patient taking differently: Instill 2 sprays into each nostril daily as needed .) eugxqppqbql-yvqsiwhig-ovo C-Mn 500-400 mg cap Take 1 capsule by mouth. Allergies Allergen Reactions Cat Dander Itching Demerol [Meperidine] GI Intolerance Agrawal Pham Other (See Comments) NASAL CONGESTION Ragweed Other (See Comments) NASAL CONGESTION Review of Systems All other systems reviewed and are negative. Patient Vitals for the past 24 hrs: BP Temp Temp src Pulse Resp SpO2 10/27/20 1031 (!) 157/92 97.7 F (36.5 C) Oral 67 16 96 % Physical Exam Vitals and nursing note reviewed. Constitutional: Appearance: Normal appearance. She is normal weight. HENT: Head: Normocephalic and atraumatic. Right Ear: Tympanic membrane normal. Nose: Congestion and rhinorrhea present. Mouth/Throat: Mouth: Mucous membranes are moist. Eyes: Extraocular Movements: Extraocular movements intact. Pupils: Pupils are equal, round, and reactive to light. Cardiovascular: Rate and Rhythm: Normal rate and regular rhythm. Pulmonary: Effort: Pulmonary effort is normal. Breath sounds: Normal breath sounds. Musculoskeletal: Cervical back: Normal range of motion. Neurological: Mental Status: She is alert. Laboratory & Radiographic Imaging (if done): No results found for this visit on 10/27/20. No orders to display Procedures MDM The patient has been informed that they may have pre-hypertension or hypertension based on a blood pressure reading in the Emergency Department. I recommend that the patient call the primary care provider listed on their discharge instructions or a physician of their choice as soon as possible to arrange follow-up in the next 4 weeks for further evaluation of possible pre-hypertension or hypertension. . Clinical Impression: 1. Acute non-recurrent sinusitis, unspecified location ED Disposition ED Disposition Condition Comment Discharge Stable Liam Mark Hu discharged to home/self care in stable condition. Follow-up Information 1. Marissa Chakraborty MD. Specialty: Family Medicine [address] [place], [place] [id number] Contact information for after-discharge care Follow-up information has not been specified. New Prescriptions methylPREDNISolone (MEDROL DOSEPACK) 4 mg tablet follow package directions . amoxicillin-clavulanate (AUGMENTIN) 875-125 mg per tablet Take 1 (one) tablet by mouth 2 (two) times a day for 14 days . Dennys Banegas MD 10/27/20 1041 Pt c/o congestion starting this morning when she woke up. She relates pmh of allergies and states she was working in the yard all day. Pt denies n/v/d or fever. Pt denies CP or SOB. [facility] Diagnosis Left [facility] pain, unspecified chronicity- [facility] Primary osteoarthritis of left knee- Primary Primary localized osteoarthrosis, lower leg Chronic pain of left knee Pain in joint, lower leg [facility] Left knee pain, unspecified chronicity [facility] Diagnosis Medicare annual wellness visit, subsequent- Primary Routine general medical examination at a health care facility Advance directive discussed with patient Other specified counseling Encounter for screening mammogram for malignant neoplasm of breast Other screening mammogram Elevated blood pressure reading without diagnosis of hypertension Elevated fasting glucose Impaired fasting glucose Arthritis of both knees Unspecified arthropathy, lower leg Age-related osteoporosis without current pathological fracture Senile osteoporosis [facility] Diagnosis Elevated LFTs- Primary Other abnormal blood chemistry [facility] [place] [facility] Diagnosis Elevated LFTs Other abnormal blood chemistry [facility] [place] [facility]* Diagnosis Elevated LFTs- Primary Other abnormal blood chemistry Abnormal levels of other serum enzymes Renal cyst Unspecified congenital cystic kidney disease documented in this encounter [facility] note* Diagnosis Hypertension, essential- Primary Unspecified essential hypertension Elevated LFTs Other abnormal blood chemistry documented in this encounter [facility] note* Diagnosis Hypertension, essential Unspecified essential hypertension documented in this encounter [facility] note* Diagnosis Elevated LFTs- Primary Other abnormal blood chemistry [facility] [place] [facility]* Diagnosis Palpitations- Primary [facility] [place] [facility]* Diagnosis Hypertension, essential- Primary Unspecified essential hypertension Elevated fasting glucose Impaired fasting glucose Palpitations Family history of thyroid disease Family history of other endocrine and metabolic diseases Age-related osteoporosis without current pathological fracture Senile osteoporosis Dyslipidemia Other and unspecified hyperlipidemia [facility] this [facility] [place] [facility]* Diagnosis Hypertension, essential- Primary Unspecified essential hypertension documented in this encounter [facility] note* Diagnosis Acute non-recurrent frontal sinusitis [J01.10 (ICD-10-CM)]- Primary documented in this encounter [facility] note* Diagnosis Hypertension, essential- Primary Unspecified essential hypertension Elevated fasting glucose Impaired fasting glucose documented in this encounter [facility] note* Diagnosis Pain in both knees, unspecified chronicity- Primary [facility] [place] [facility]* Diagnosis Primary osteoarthritis of left knee- Primary Primary localized osteoarthrosis, lower leg Chronic pain of left knee Pain in joint, lower leg documented in this encounter [facility] note* Diagnosis Medicare annual wellness visit, subsequent- Primary Routine [facility] Advance directive discussed with patient Other specified counseling Hypertension, essential Unspecified essential hypertension Hyperlipidemia, mixed Mixed hyperlipidemia Elevated fasting glucose Impaired fasting glucose Age-related osteoporosis without current pathological fracture Senile osteoporosis Family history of thyroid disease Family history of other endocrine and metabolic diseases documented in this encounter [facility] note* Diagnosis Hypertension, essential- Primary Unspecified essential hypertension [facility] [place] [facility]* Diagnosis Pain in both knees, unspecified chronicity [facility] this [facility] [place] [facility]* Diagnosis Acute pharyngitis, unspecified etiology- Primary documented in this encounter [facility] Work Phone: Evaluation note* Diagnosis Gastroesophageal reflux disease with esophagitis without hemorrhage- Primary documented in this encounter [facility] Work Phone: Evaluation note* Diagnosis Encounter for screening mammogram for malignant neoplasm of breast documented in this encounter [facility] Work Phone: History of Present illness Narrative* Patient is a 70 year female who presents with signs/symptoms consistent with L knee pain: increasedpain, decreased knee AROM, decreased knee/LE strength, decreased ability as assessed by the LEFS. Patient would benefit from skilled PT to improve knee AROM, improve knee/LE strength for return to PLOF: able to walk in grocery store without a limp. Barriers to patient s progress in PT include chronicity of symptoms; however, rehab potential is good because patient is motivated to participate in PT and has not yet trialed conservative PT management. At initial evaluation, patient was instructed in knee/hip flexibility exercises. At end of initial evaluation, patient reported no change in symptoms vs pre-evaluation. * Clinical Presentation: Stable and/or uncomplicated characteristics. * Level of Complexity: low * Problem List: activity limitations, ADLs/IADLs/self care skills, balance, decreased functional level, decreased knowledge of HEP, fall risk, flexibility, gait/locomotion, pain, participation restrictions, posture, range of motion/joint mobility and strength. [facility] Work Phone: History of Present illness NarrativeFair tolerance to ther ex. Weakness noted with hip and quad strengthening. fair eccentric control on shuttle press. Quick fatigue with SLR. AAROM L knee flexion WFL. [facility] Work Phone: History of Present illness Narrative* Patient identified by name & . Patient wore a mask during treatment d/t Covid-19 precautions. * Treatment consisted of ther ex's and gait. Worked on heel strike/toe off, increasing knee flexion with swing phase and keeping quads contracted with stance phase and cues not to hip hike L side with swing phase. Patient's pain level the same post treatment, but reported improved ease of movement inher entire L leg. [facility] Work Phone: History of Present illness NarrativePt has attended 4 visits of PT for L knee pain consisting of evaluation, ther ex, manual, gait training, and home exercises. No significant improvement with regards to knee ROM, pain, or ability as assessed by LEFS since evaluation. Patient cont to c/o knee pain with walking/stairs - encouraged to call MD re cont symptoms. [facility] Work Phone: Hospital Discharge instructions* Attachments The following attachments cannot be sent through Care Everywhere. * Sinusitis ([place]in[place]) [facility] Diagnostic Procedure Only (Routine) - Pending Review Specialty Diagnoses / Procedures Referred By Anamaria garza Referred To Contact XR IMAGING Diagnoses Left knee pain, unspecified chronicity Procedures XR KNEE GENERAL 4V AP BOTH/PA BOTH/LAT/MERC LEFT RADIOLOGIC EXAM KNEE COMPLETE 4/MORE VIEWS Jamar Albert MD [address] [place] [address] Xr Imaging Referral ID Status Reason Start Date Expiration Date Visits Requested Visits Authorized [id number] Pending Review Auto-Generat ed Referral 09/22/2021 10/22/2022 1 1 T [facility] for referral (narrative)* Diagnostic Procedure Only (Routine) - Closed Specialty Diagnoses / Procedures Referred By Anamaria garza Referred To Contact XR IMAGING Diagnoses Left knee pain, unspecified chronicity Procedures XR KNEE GENERAL 4V AP BOTH/PA BOTH/LAT/MERC LEFT RADIOLOGIC EXAM KNEE COMPLETE 4/MORE VIEWS Jamar Albert MD [address] [place] [address] Xr Imaging Referral ID Status Reason Start Date Expiration Date V isits Requested Visits Authorized [id number] Closed Auto-Generate d Referral 09/22/2021 10/22/2022 1 1 T [facility] for referral (narrative)* Diagnostic Procedure Only (Routine) - Pending Review Specialty Diagnoses / Procedures Referred By Anamaria t Referred To Contact BR IMAGING Diagnoses Encounter for screening mammogram for malignant neoplasm of breast Procedures BERNARD SCREENING SCREENING MAMMOGRAPHY BI 2-VIEW BREAST INC CAD Marilyn Hair PA-C [address] [place] [address] Br Imaging [address] [place] [address] Referral ID Status Reason Start Date Expiration Date Visits Requested Visits Authorized [id number] Pending Review Auto-Generat ed Referral 11/23/2021 12/23/2022 1 1 [facility] for referral (narrative)* Diagnostic Procedure Only (Urgent) - Authorized Specialty Diagnoses / Procedures Referred By Anamaria t Referred To Contact US IMAGING Diagnoses Elevated LFTs Procedures US ABD RT UPPER QUADRANT US ABDOMINAL REAL TIME W/IMAGE LIMITED Marilyn Hair PA-C [address] [place] [address] Us Imaging Referral ID Status Reason Start Date Expiration Date Visits Requested Visits Authorized [id number] Authorized Auto-Generat ed Referral 11/24/2021 12/24/2022 1 1 T [facility] for referral (narrative)* Diagnostic Procedure Only (Urgent) - Closed Specialty Diagnoses / Procedures Referred By Anamaria t Referred To Contact US IMAGING Diagnoses Elevated LFTs Procedures US ABD RT UPPER QUADRANT US ABDOMINAL REAL TIME W/IMAGE LIMITED Marilyn Hair PA-C [address] [place] [address] Us Imaging Referral ID Status Reason Start Date Expiration Date V isits Requested Visits Authorized [id number] Closed Auto-Generate d Referral 11/24/2021 12/24/2022 1 1 [facility] for referral (narrative)* Diagnostic Procedure Only (Routine) - Pending Review Specialty Diagnoses / Procedures Referred By Contac t Referred To Contact XR IMAGING Diagnoses Pain in both knees, unspecified chronicity Procedures XR KNEE GENERAL 4V AP BOTH/PA BOTH/LAT/MERC BILATERAL RADIOLOGIC EXAM KNEE COMPLETE 4/MORE VIEWS Miesha Jefferson PA-C [address] [place] [address] Xr Imaging Referral ID Status Reason Start Date Expiration Date Visits Requested Visits Authorized [id number] Pending Review Auto-Generat ed Referral 12/13/2022 01/12/2024 1 1 [facility] for referral (narrative)* Diagnostic Procedure Only (Routine) - Closed Specialty Diagnoses / Procedures Referred By Anamaria garza Referred To Contact XR IMAGING Diagnoses Pain in both knees, unspecified chronicity Procedures XR KNEE GENERAL 4V AP BOTH/PA BOTH/LAT/MERC BILATERAL RADIOLOGIC EXAM KNEE COMPLETE 4/MORE VIEWS Miesha Jefferson PA-C [address] [place] [address] [place] [id number] Referral ID Status Reason Start Date Expiration Date V isits Requested Visits Authorized [id number] Closed Auto-Generate d Referral 12/13/2022 01/12/2024 1 1 [facility] for visit Narrative* Initial Evaluation . L knee pain. * Referred by: Marilyn Hair PA-C [facility] Work Phone: [facility] for visit Narrative* Diagnostic Procedure Only (Routine) - Closed Specialty Diagnoses / Procedures Referred By Anamaria garza Referred To Contact XR IMAGING Diagnoses Left knee pain, unspecified chronicity Procedures XR KNEE GENERAL 4V AP BOTH/PA BOTH/LAT/MERC LEFT RADIOLOGIC EXAM KNEE COMPLETE 4/MORE VIEWS Jamar Albert MD [address] [place] [address] Xr Imaging Referral ID Status Reason Start Date Expiration Date V isits Requested Visits Authorized [id number] Closed Auto-Generate d Referral 09/22/2021 10/22/[address] [facility] Diagnostic Procedure Only (Routine) - Closed Specialty Diagnoses / Procedures Referred By Anamaria garza Referred To Contact XR IMAGING Diagnoses Pain in both knees, unspecified chronicity Procedures XR KNEE GENERAL 4V AP BOTH/PA BOTH/LAT/MERC BILATERAL RADIOLOGIC EXAM KNEE COMPLETE 4/MORE VIEWS Miesha Jefferson PA-C [address] [place] [address] [place] [id number] Referral ID Status Reason Start Date Expiration Date V isits Requested Visits Authorized [id number] Closed Auto-Generate d Referral 12/13/2022 01/12/[address] [facility] * Patient Instructions - Marissa Chakraborty MD - 12/22/2016 11:50 AM EDT Formatting of this note may be different from the original. Problem List Items Addressed This Visit Respiratory Sinusitis, acute The persistence of symptoms as well as your exam suggest a bacterial infection. The presence or association with air conditioning suggests atypical bacterial infection. in this encounter* Patient Instructions - Paulette Peters CNP - 04/12/2018 10:09 AM EST Formatting of this note may be different from the original. Problem List Items Addressed This Visit Respiratory Acute frontal sinusitis - Primary I am sending in a prescription for Ceftin x 10 days, take this with food. I also recommend you stopusing the Flonase which has alcohol in it, this could be causing your nosebleeds. I recommend OTC Nasacort which has no alcohol in it and no odor. Follow instructions on the bottle. Also recommend you get a Neti Pot to help with allergies and sinus symptoms. Relevant Medications cefUROXime (CEFTIN) 500 MG tablet Musculoskeletal and Integument Left tennis elbow When you do repetitive motions or tasks the tendon in your arm continues to be inflamed and will not heal. You can get one of the arm bands to help with pain, must let the area rest to heal. Relevant Medications meloxicam (MOBIC) 7.5 MG tablet Other Wellness examination Will do routine labs while you are here today. Eat meat, vegetables, nuts and seeds, some fruit, very little starch and absolutely no sugar. If you can grow it or kill it, then that's what you should be eating..... Chicken, turkey, fish pork, beef, ALL vegetables and fruit. If it is processed or you can not pronounce the ingredients, do not eat it! Shop the outside perimeter of the grocery store. Listen to your body, if you are hungry all the time you may need to increase your intake of healthyveggies and small healthy snacks. Eat whole, healthy foods and you won't need to count calories. Increase your activity level; the more you move your body the healthier you will be and the better you will feel! Diet and Exercise is not a fad, it really works! Relevant Orders Lipid Panel CBC and Differential TSH with Reflex Free T4 Comprehensive Metabolic Panel Chest pain You state while you were active about one week ago you had chest pressure that radiated to your midback. You have also developed left arm achiness x the past week, it is your entire arm and feels different than your tennis elbow. You have not had the chest or back pain since that time but your armcontinues to ache. Will do a troponin and an EKG to see if there are any changes. You are active and healthy but better to be safe than sorry. Relevant Orders Troponin Sedimentation Rate TSH with Reflex Free T4 ECG 12 Lead (Completed) in this encounter* Patient Instructions - Marissa Chakraborty MD - 02/27/2017 9:13 AM EDT Formatting of this note may be different from the original. Problem List Items Addressed This Visit Respiratory Allergic rhinitis Evidence on exam of chronic mouth breathing secondary to chronic nasal narrowing. Suggest the use of fexofenadine or Kirsten 180 mg once a day Flonase 1 puff each side twice a day. Suggest frequent use of nasal saline. Suggest simply saline which is an zran-akn-eiicyvt nasal spray Relevant Medications fexofenadine (KIRSTEN) 180 MG tablet fluticasone (FLONASE) 50 mcg/actuation nasal spray Other Wellness examination - Primary Sounds like a DEXA scan is in order since it has been more than 2 years would suggest zoster chickenpox immunization as well as pneumococcal. Suggest both the Prevnar 13 as well as Prevnar 23. You had the tetanus in 2015. Also suggest that we get the old information on prior testing. We will also order the hepatitis C antibody today and the screening mammogram. Relevant Orders XR Bone Density DEXA Axial with Vertebral Fracture and Appendicular Mammography Screening Bilateral Hepatitis C Antibody Comprehensive Metabolic Panel TSH with Reflex Free T4 CBC and Differential Lipid Panel Ambulatory referral to General Surgery Other Visit Diagnoses Risk for falls Postmenopausal Relevant Orders XR Bone Density DEXA Axial with Vertebral Fracture and Appendicular Mammography Screening Bilateral Fibrocystic disease of both breasts Relevant Orders Mammography Screening Bilateral Encounter for screening mammogram for malignant neoplasm of breast Relevant Orders Mammography Screening Bilateral Thinprep Pap Smear, Screening STEADI Low Risk Patient Instructions: Your Falls Screening today shows that you are at low risk for falls. To further protect yourself from falls and maintain your independence, we recommend: 1. Read through the brochure, What You Can Do to Prevent Falls (from [facility]). 2. Go through the brochure, Check for Safety: A Home Fall Prevention Checklist for Older Adults (from [facility]), and make changes as recommended. 3. Join a community falls prevention program: ? Stepping On, a 7-week evidence based program that teaches balance exercises and fall prevention strategies ? Lei Chi for older adults, group exercise that teaches Lei Chi forms that reduce fall risk (weightshifting, postural alignment and control, and coordinated movements of the arms, legs, head, and trunk) ? Matter of Balance, an evidence based program designed to reduce the fear of falling and increase activity levels of older adults OR an exercise class for strength and balance. 4. Take your Vitamin D with or without Calcium, as determined by your healthcare provider. 5. Get your vision and hearing checked annually. Falls At Home Each year, thousands of older Americans fall at home. Many of them are seriously injured, and some are disabled. In 2011, nearly 23,000 people over age 65 and 2.4 million were treated in emergency departments because of falls. Falls are often due to hazards that are easy to overlook but easy to fix. This checklist will help you find and fix those hazards in your home. The checklist asks about hazards found in each room of your home. For each hazard, the checklist tells you how to fix the problem. At the end of the checklist, you ll find other tips for preventing falls. FLOORS: Look at the floor in each room. Q: When you walk through a room, do you have to walk around furniture? A. Ask someone to move the furniture so your path is clear Q: Do you have throw rugs on the floor? A. Remove the rugs or use double-sided tape or a non-slip backing so the rugs won t slip. Q: Are there papers, books, towels, shoes, magazines, boxes, blankets, or other objects on the floor? A.transformer shop supervisor things that are on the floor. Always keep objects off the floor. Q: Do you have to walk over or around wires or cords (like lamp, telephone, or extension cords)? A. Coil or tape cords and wires next to the wall so you can t trip over them. If needed, have an lift electrician put in another outlet. STAIRS AND STEPS: Look at the stairs you use both inside and outside your home. Q: Are there papers, shoes, books, or other objects on the stairs? A. transformer shop supervisor things on the stairs. Always keep objects off stairs. Q: Are some steps broken or uneven? A. Fix loose or uneven steps. Q: Are you missing a light over the stairway? A. Have an lift electrician put in an overhead light at the top and bottom of the stairs. Q: Do you have only one light switch for your stairs (only at the top or at the bottom of the stairs)? A. Have an lift electrician put in a light switch at the top and bottom of the stairs. You can get lightswitches that glow. Q: Has the stairway light bulb burned out? A. Have a friend or family member change the light bulb. Q: Is the carpet on the steps loose or torn? A. Make sure the carpet is firmly attached to every step, or remove the carpet and attach non-slip rubber treads to the stairs. Q: Are the handrails loose or broken? Is there a handrail on only one side of the stairs? A. Fix loose handrails or put in new ones. Make sure handrails are on both sides of the stairs and are as long as the stairs. KITCHEN: Look at your kitchen and eating area. Q: Are the things you use often on high shelves? A. Move items in your cabinets. Keep things you use often on the lower shelves (about waist level). Q: Is your step stool unsteady? A. If you must use a step stool, get one with a bar to hold on to. Never use a chair as a step stool. BATHROOMS: Look at all your bathrooms. Q: Is the tub or shower floor slippery? A. Put a non-slip rubber mat or self-stick strips on the floor of the tub or shower. Q: Do you need some support when you get in and out of the tub or up from the toilet? A. Have grab bars put in next to and inside the tub and next to the toilet. BEDROOMS: Look at all your bedrooms. Q: Is the light near the bed hard to reach? A. Place a lamp close to the bed where it s easy to reach. Q: Is the path from your bed to the bathroom dark? A. Put in a night-light so you can see where you re walking. Some night-lights go on by themselves after dark. Other Things You Can Do to Prevent Falls Do exercises that improve your balance and make your legs stronger. Exercise also helps you feel better and more confident. Have your doctor or pharmacist look at all the medicines you take, even ozdl-tew-ykqbutr medicines.Some medicines can make you sleepy or dizzy. Have your eyes checked by an eye doctor at least once a year and update your glasses. Get up slowly after you sit or lie down. Wear shoes both inside and outside the house. Avoid going barefoot or wearing slippers. Improve the lighting in your home. Put in brighter light bulbs. Florescent bulbs are bright and cost less to use. It s safest to have uniform lighting in a room. Add lighting to dark areas. Hang lightweight curtains or shades to reduce glare. [place] a contrasting color on the top edge of all steps so you can see the stairs better. For example, use a light color paint on dark wood. To access this brochure online, please visit the CDC website at http://www.cdc.gov/steadi/pdf/check_for_safety_brochure-a.pdf Chair Rise Exercise What it does: Strengthens the muscles in your thighs & buttocks. Goal: To do this exercise without using your hands as you become stronger. How to do it: 1. Sit toward the front of a sturdy chair with your knees bent & feet flat on the floor shoulder-width apart 2. Rest your hands lightly on the seat on either side of you, keeping your back & neck straight& and chest slightly forward. 3. Breathe in slowly. Lean forward & feel your weight on the front of your feet. 4. Breathe out and slowly stand up, using your hands as little as possible. 5. Pause for a full breath in & out. 6. Breathe in as you slowly sit down. Do not let yourself collapse back down into the chair. Rather, control your lowering as much as possible. 7. Breathe out. Repeat 10-15 times. If this number is too hard for you when you first start practicing this exercise, begin with fewer and work up to this number. Rest for a minute & then do a final set of 10-15. For detailed instructions, please visit the CDC website at http://www.cdc.gov/steadi/pdf/chair_rise_exercise-a.pdf Stepping On is an evidence based program proven to reduce falls in older adults. It is a workshop offered once a week for seven weeks. In a small-group setting, you will learn balance exercises and develop specific knowledge and skills to prevent falls. Older adults who should attend are those who: are at risk of falling who have fallen one or more times lives at home are able to walk without the help of another person Local guest experts provide information on exercise, safety, vision, and medications. Classes are offered at [facility]. To find out specifics about a class, please call [phone]. Lei chi: Moving for Better Balance involves low impact exercise. The 12-week class is offered for three hours per week and is led by a trained aquatics group fitness instructor. It is intended for people aged 60 and older. Participants learn and perform a program of eight forms that progress from easy to more difficult. The program can accommodate persons with various physical conditions. Health Benefits of Lei Chi: Moving for Better Balance: Improved social and mental well-being, Improved balance and physical functioning, Improved confidence in conducting daily activities, Reduced risk of falling and sustaining associated injuries, and Maintained independence and improved quality of life. To find a Lei Chi program in your area or additional resources about fall prevention please contact: [facility] Violence and Injury Prevention Program at [phone] or [email or web address] A Matter of Balance: Managing Concerns about Falls is an evidence based program designed to reduce the fear of falling and increase activity levels of older adults. A trained certified breastfeeding educator leads 8 two-hour sessions for small groups of older adults. The class is intended for people 60 and older who are at risk of falling have a fear of falling or restrict activities who have fallen in the past are interested in improving flexibility, balance, and strength. Participants will learn to view falls as controllable, set goals to increase activity levels, and reduce fall risks at home. Classes are offered in all [address] [place] [address] in [place]. For more information about specific classes near you, please visit http://aging.[place].gov/steadyu/resources/matterofbalance.aspx. Well Visit, Women 50 to 65: Care Instructions Your Care Instructions Physical exams can help you stay healthy. Your doctor has checked your overall health and may have suggested ways to take good care of yourself. He or she also may have recommended tests. At home, you can help prevent illness with healthy eating, regular exercise, and other steps. Follow-up care is a patino part of your treatment and safety. Be sure to make and go to all appointments, and call your doctor if you are having problems. It's also a good idea to know your test resultsand keep a list of the medicines you take. How can you care for yourself at home? Reach and stay at a healthy weight. This will lower your risk for many problems, such as obesity, diabetes, heart disease, and high blood pressure. Get at least 30 minutes of exercise on most days of the week. Walking is a good choice. You also may want to do other activities, such as running, swimming, cycling, or playing tennis or team sports. Do not smoke. Smoking can make health problems worse. If you need help quitting, talk to your doctor about stop-smoking programs and medicines. These can increase your chances of quitting for good. Protect your skin from too much sun. When you're outdoors from 10 a.m. to 4 p.m., stay in the shadeor cover up with clothing and a hat with a wide brim. Wear sunglasses that block UV rays. Even whenit's cloudy, put broad-spectrum sunscreen (SPF 30 or higher) on any exposed skin. See a dentist one or two times a year for checkups and to have your teeth cleaned. Wear a seat belt in the car. Limit alcohol to 1 drink a day. Too much alcohol can cause health problems. Follow your doctor's advice about when to have certain tests. These tests can spot problems early. Cholesterol. Your doctor will tell you how often to have this done based on your age, family history, or other things that can increase your risk for heart attack and stroke. Blood pressure. Have your blood pressure checked during a routine doctor visit. Your doctor will tell you how often to check your blood pressure based on your age, your blood pressure results, and other factors. Mammogram. Ask your doctor how often you should have a mammogram, which is an X- ray of your breasts. A mammogram can spot breast cancer before it can be felt and when it is easiest to treat. Pap test and pelvic exam. Ask your doctor how often you should have a Pap test. You may not need tohave a Pap test as often as you used to. Vision. Have your eyes checked every year or two or as often as your doctor suggests. Some experts recommend that you have yearly exams for glaucoma and other age-related eye problems starting at age50. Hearing. Tell your doctor if you notice any change in your hearing. You can have tests to find out how well you hear. Diabetes. Ask your doctor whether you should have tests for diabetes. Colon cancer. You should begin tests for colon cancer at age 50. You may have one of several tests.Your doctor will tell you how often to have tests based on your age and risk. Risks include whetheryou already had a precancerous polyp removed from your colon or whether your parents, sisters and brothers, or children have had colon cancer. Thyroid disease. Talk to your doctor about whether to have your thyroid checked as part of a regular physical exam. Women have an increased chance of a thyroid problem. Osteoporosis. You should begin tests for bone density at age 65. If you are younger than 65, ask your doctor whether you have factors that may increase your risk for this disease. You may want to have this test before age 65. Heart attack and stroke risk. At least every 4 to 6 years, you should have your risk for heart attack and stroke assessed. Your doctor uses factors such as your age, blood pressure, cholesterol, and whether you smoke or have diabetes to show what your risk for a heart attack or stroke is over the next 10 years. When should you call for help? Watch closely for changes in your health, and be sure to contact your doctor if you have any problems or symptoms that concern you. Where can you learn more? Log into your personal health record on [email or web address] and enter Y074 in the Education box to learn more about Well Visit, Women 50 to 65: Care Instructions. Current as of: December 15, 2015 Content Version: 11.2 [id number] [employer]. Care instructions adapted under license by your healthcare professional. If you have questions about a medical condition or this instruction, always ask your healthcare professional. [employer] disclaims any warranty or liability for your use of this information. in this encounter* Patient Instructions* Sherley No RN - 06/14/2018 9:46 AM EST [place] Low Risk Patient Instructions: Your Falls Screening today shows that you are at low risk for falls. To further protect yourself from falls and maintain your independence, we recommend: 1. Read through the brochure, What You Can Do to Prevent Falls (from CDC). 2. Go through the brochure, Check for Safety: A Home Fall Prevention Checklist for Older Adults (from CDC), and make changes as recommended. 3. Join a community falls prevention program: ? Stepping On, a 7-week evidence based program that teaches balance exercises and fall prevention strategies ? Lei Chi for older adults, group exercise that teaches Lei Chi forms that reduce fall risk (weightshifting, postural alignment and control, and coordinated movements of the arms, legs, head, and trunk) ? Matter of Balance, an evidence based program designed to reduce the fear of falling and increase activity levels of older adults OR an exercise class for strength and balance. 4. Take your Vitamin D with or without Calcium, as determined by your healthcare provider. 5. Get your vision and hearing checked annually. Falls At Home Each year, thousands of older Americans fall at home. Many of them are seriously injured, and some are disabled. In 2011, nearly 23,000 people over age 65 and 2.4 million were treated in emergency departments because of falls. Falls are often due to hazards that are easy to overlook but easy to fix. This checklist will help you find and fix those hazards in your home. The checklist asks about hazards found in each room of your home. For each hazard, the checklist tells you how to fix the problem. At the end of the checklist, you ll find other tips for preventing falls. FLOORS: Look at the floor in each room. Q: When you walk through a room, do you have to walk around furniture? A. Ask someone to move the furniture so your path is clear Q: Do you have throw rugs on the floor? A. Remove the rugs or use double-sided tape or a non-slip backing so the rugs won t slip. Q: Are there papers, books, towels, shoes, magazines, boxes, blankets, or other objects on the floor? A.transformer shop supervisor things that are on the floor. Always keep objects off the floor. Q: Do you have to walk over or around wires or cords (like lamp, telephone, or extension cords)? A. Coil or tape cords and wires next to the wall so you can t trip over them. If needed, have an lift electrician put in another outlet. STAIRS AND STEPS: Look at the stairs you use both inside and outside your home. Q: Are there papers, shoes, books, or other objects on the stairs? A. transformer shop supervisor things on the stairs. Always keep objects off stairs. Q: Are some steps broken or uneven? A. Fix loose or uneven steps. Q: Are you missing a light over the stairway? A. Have an lift electrician put in an overhead light at the top and bottom of the stairs. Q: Do you have only one light switch for your stairs (only at the top or at the bottom of the stairs)? A. Have an lift electrician put in a light switch at the top and bottom of the stairs. You can get lightswitches that glow. Q: Has the stairway light bulb burned out? A. Have a friend or family member change the light bulb. Q: Is the carpet on the steps loose or torn? A. Make sure the carpet is firmly attached to every step, or remove the carpet and attach non-slip rubber treads to the stairs. Q: Are the handrails loose or broken? Is there a handrail on only one side of the stairs? A. Fix loose handrails or put in new ones. Make sure handrails are on both sides of the stairs and are as long as the stairs. KITCHEN: Look at your kitchen and eating area. Q: Are the things you use often on high shelves? A. Move items in your cabinets. Keep things you use often on the lower shelves (about waist level). Q: Is your step stool unsteady? A. If you must use a step stool, get one with a bar to hold on to. Never use a chair as a step stool. BATHROOMS: Look at all your bathrooms. Q: Is the tub or shower floor slippery? A. Put a non-slip rubber mat or self-stick strips on the floor of the tub or shower. Q: Do you need some support when you get in and out of the tub or up from the toilet? A. Have grab bars put in next to and inside the tub and next to the toilet. BEDROOMS: Look at all your bedrooms. Q: Is the light near the bed hard to reach? A. Place a lamp close to the bed where it s easy to reach. Q: Is the path from your bed to the bathroom dark? A. Put in a night-light so you can see where you re walking. Some night-lights go on by themselves after dark. Other Things You Can Do to Prevent Falls Do exercises that improve your balance and make your legs stronger. Exercise also helps you feel better and more confident. Have your doctor or pharmacist look at all the medicines you take, even lyqg-tgl-woepwnj medicines.Some medicines can make you sleepy or dizzy. Have your eyes checked by an eye doctor at least once a year and update your glasses. Get up slowly after you sit or lie down. Wear shoes both inside and outside the house. Avoid going barefoot or wearing slippers. Improve the lighting in your home. Put in brighter light bulbs. Florescent bulbs are bright and cost less to use. It s safest to have uniform lighting in a room. Add lighting to dark areas. Hang lightweight curtains or shades to reduce glare. [place] a contrasting color on the top edge of all steps so you can see the stairs better. For example, use a light color paint on dark wood. To access this brochure online, please visit the CDC website at http://www.cdc.gov/steadi/pdf/check_for_safety_brochure-a.pdf Chair Rise Exercise What it does: Strengthens the muscles in your thighs & buttocks. Goal: To do this exercise without using your hands as you become stronger. How to do it: 1. Sit toward the front of a sturdy chair with your knees bent & feet flat on the floor shoulder-width apart 2. Rest your hands lightly on the seat on either side of you, keeping your back & neck straight& and chest slightly forward. 3. Breathe in slowly. Lean forward & feel your weight on the front of your feet. 4. Breathe out and slowly stand up, using your hands as little as possible. 5. Pause for a full breath in & out. 6. Breathe in as you slowly sit down. Do not let yourself collapse back down into the chair. Rather, control your lowering as much as possible. 7. Breathe out. Repeat 10-15 times. If this number is too hard for you when you first start practicing this exercise, begin with fewer and work up to this number. Rest for a minute & then do a final set of 10-15. For detailed instructions, please visit the CDC website at http://www.cdc.gov/steadi/pdf/chair_rise_exercise-a.pdf Stepping On is an evidence based program proven to reduce falls in older adults. It is a workshop offered once a week for seven weeks. In a small-group setting, you will learn balance exercises and develop specific knowledge and skills to prevent falls. Older adults who should attend are those who: are at risk of falling who have fallen one or more times lives at home are able to walk without the help of another person Local guest experts provide information on exercise, safety, vision, and medications. Classes are offered at [facility]. To find out specifics about a class, please call [phone]. Lei chi: Moving for Better Balance involves low impact exercise. The 12-week class is offered for three hours per week and is led by a trained aquatics group fitness instructor. It is intended for people aged 60 and older. Participants learn and perform a program of eight forms that progress from easy to more difficult. The program can accommodate persons with various physical conditions. Health Benefits of Lei Chi: Moving for Better Balance: Improved social and mental well-being, Improved balance and physical functioning, Improved confidence in conducting daily activities, Reduced risk of falling and sustaining associated injuries, and Maintained independence and improved quality of life. To find a Lei Chi program in your area or additional resources about fall prevention please contact: [facility] Violence and Injury Prevention Program at [phone] or [email or web address] A Matter of Balance: Managing Concerns about Falls is an evidence based program designed to reduce the fear of falling and increase activity levels of older adults. A trained certified breastfeeding educator leads 8 two-hour sessions for small groups of older adults. The class is intended for people 60 and older who are at risk of falling have a fear of falling or restrict activities who have fallen in the past are interested in improving flexibility, balance, and strength. Participants will learn to view falls as controllable, set goals to increase activity levels, and reduce fall risks at home. Classes are offered in all [address] [place] [address] in [place]. For more information about specific classes near you, please visit http://aging.[place].gov/steadyu/resources/matterofbalance.aspx. Heart-Healthy Diet: Care Instructions Your Care Instructions A heart-healthy diet has lots of vegetables, fruits, nuts, beans, and whole grains, and is low in salt. It limits foods that are high in saturated fat, such as meats, cheeses, and fried foods. It maybe hard to change your diet, but even small changes can lower your risk of heart attack and heart disease. Follow-up care is a patino part of your treatment and safety. Be sure to make and go to all appointments, and call your doctor if you are having problems. It's also a good idea to know your test resultsand keep a list of the medicines you take. How can you care for yourself at home? Watch your portions Learn what a serving is. A serving and a portion are not always the same thing. Make sure that you are not eating larger portions than are recommended. For example, a serving of pasta is cup. A serving size of meat is 2 to 3 ounces. A 3-ounce serving is about the size of a deck of cards. Measure serving sizes until you are good at eyeballing them. Keep in mind that restaurants often serve portions that are 2 or 3 times the size of one serving. To keep your energy level up and keep you from feeling hungry, eat often but in smaller portions. Eat only the number of calories you need to stay at a healthy weight. If you need to lose weight, eat fewer calories than your body pickett (through exercise and other physical activity). Eat more fruits and vegetables Eat a variety of fruit and vegetables every day. Dark green, deep orange, red, or yellow fruits andvegetables are especially good for you. Examples include spinach, carrots, peaches, and berries. Keep carrots, celery, and other veggies handy for snacks. Buy fruit that is in season and store it where you can see it so that you will be tempted to eat it. Cook dishes that have a lot of veggies in them, such as stir-fries and soups. Limit saturated and trans fat Read food labels, and try to avoid saturated and trans fats. They increase your risk of heart disease. Trans fat is found in many processed foods such as cookies and crackers. Use olive or canola oil when you cook. Try cholesterol-lowering spreads, such as Benecol or Take Control. Bake, broil, grill, or steam foods instead of frying them. Choose lean meats instead of high-fat meats such as hot dogs and sausages. Cut off all visible fat when you prepare meat. Eat fish, skinless poultry, and meat alternatives such as soy products instead of high-fat meats. Soy products, such as tofu, may be especially good for your heart. Choose low-fat or fat-free milk and dairy products. Eat fish Eat at least two servings of fish a week. Certain fish, such as salmon and tuna, contain omega-3 fatty acids, which may help reduce your risk of heart attack. Eat foods high in fiber Eat a variety of grain products every day. Include whole-grain foods that have lots of fiber and nutrients. Examples of whole-grain foods include oats, whole wheat bread, and brown rice. Buy whole-grain breads and cereals, instead of white bread or pastries. Limit salt and sodium Limit how much salt and sodium you eat to help lower your blood pressure. Taste food before you salt it. Add only a little salt when you think you need it. With time, your taste buds will adjust to less salt. Eat fewer snack items, fast foods, and other high-salt, processed foods. Check food labels for the amount of sodium in packaged foods. Choose low-sodium versions of canned goods (such as soups, vegetables, and beans). Limit sugar Limit drinks and foods with added sugar. These include candy, desserts, and soda pop. Limit alcohol Limit alcohol to no more than 2 drinks a day for men and 1 drink a day for women. Too much alcohol can cause health problems. When should you call for help? Watch closely for changes in your health, and be sure to contact your doctor if: You would like help planning heart-healthy meals. Where can you learn more? Log into your personal health record on [email or web address] and enter V137 in the Education box to learn more about Heart-Healthy Diet: Care Instructions. Current as of: December 17, 2017 Content Version: .9 [id number] [employer]. Care instructions adapted under license by your healthcare professional. If you have questions about a medical condition or this instruction, always ask your healthcare professional. [employer] disclaims any warranty or liability for your use of this information. High-Fiber Diet: Care Instructions Your Care Instructions A high-fiber diet may help you relieve constipation and feel less bloated. Your doctor and dietitian will help you make a high-fiber eating plan based on your personal needs.The plan will include the things you like to eat. It will also make sure that you get 30 grams of fiber a day. Before you make changes to the way you eat, be sure to talk with your doctor or dietitian. Follow-up care is a patino part of your treatment and safety. Be sure to make and go to all appointments, and call your doctor if you are having problems. It's also a good idea to know your test resultsand keep a list of the medicines you take. How can you care for yourself at home? You can increase how much fiber you get if you eat more of certain foods. These foods include: ? Whole-grain breads and cereals. ? Fruits, such as pears, apples, and peaches. Eat the skins, peels, and seeds, if you can. ? Vegetables, such as broccoli, cabbage, spinach, carrots, asparagus, and squash. ? Starchy vegetables. These include potatoes with skins, kidney beans, and bolden beans. Take a fiber supplement every day if your doctor recommends it. Examples are Benefiber, Citrucel, FiberCon, and Metamucil. Ask your doctor how much to take. Drink plenty of fluids, enough so that your urine is light yellow or clear like water. If you have kidney, heart, or liver disease and have to limit fluids, talk with your doctor before you increase the amount of fluids you drink. Get some exercise every day. Exercise helps stool move through the colon. It also helps prevent constipation. Keep a food diary. Try to notice and write down what foods cause gas, pain, or other symptoms. Thenyou can avoid these foods. Where can you learn more? Log into your personal health record on [email or web address] and enter U654 in the Education box to learn more about High-Fiber Diet: Care Instructions. Current as of: August 23, 2017 Content Version: 11.9 [id number] [employer]. Care instructions adapted under license by your healthcare professional. If you have questions about a medical condition or this instruction, always ask your healthcare professional. [employer] disclaims any warranty or liability for your use of this information. Thank you for choosing our office for your Medicare Wellness Visit. Below you will find the plans we discussed today for your future medical treatments. Please keep this plan in a visible location soyou can refer to it often and let our office know if you have any questions. 5-Year Plan Counseling on Fall Prevention Discuss if any falls over past 12 months: Discussed with patient Assess living environment for lighting, hazards, and assistive devices: Discussed with patient Counseling on Exercise Advise to start, increase, or maintain level of exercise in order to reach goal of 30 minutes of moderate activity at least 4 days per week. : Discussed with patient Counseling on Nutrition Assess and review protein, fat, simple sugar and fiber intake: Discussed with patient Recommend that half of plate is filled with fresh fruit, raw or steamed vegetable per meal: Discussed with patient Counseling on Urinary Incontinence Review history of bowel and urinary incontinence and any recent changes in bowel habits and micturition: Discussed with patient Discuss bladder training, exercises, medication and surgery: Discussed with patient Pharmacy/Equipment Co[facility] (DME) [facility] [place], [place] [address] [facility] [address] [place] [id number] Health Maintenance Topic Date Due MAMMOGRAM 1950 ZOSTER VACCINES (1 of 2) 06/14/2019 (Originally 2000) PNEUMOCOCCAL VACCINE AGE 65+ (2 of 2 - PPSV23) 01/25/2019 Steadi Fall Risk Assessment 06/14/2019 ANNUAL EXAM 06/14/2019 COLONOSCOPY 09/01/2022 LIPID PANEL 04/12/2023 TETANUS EVERY 10 YR 12/01/2024 HEPATITIS C SCREENING Completed DEXA SCAN Completed SEQUENTIAL INFLUENZA VACCINE Addressed Referrals and Orders Orders Placed This Encounter Procedures XR Bone Density DEXA Axial in this encounter* Patient Instructions* Anna Pitts PA-C - 10/19/2018 2:39 PM EDT Problem List Items Addressed This Visit Respiratory Acute non-recurrent maxillary sinusitis - Primary At this time, I would like you to take the antibiotic I prescribed as discussed in the visit. Continue drinking fluids as always and plenty of handwashing and rest. Please let me know if anything changes. You agreed to treatment plan and verbalized understanding. Relevant Medications cefUROXime (CEFTIN) 500 MG tablet Other Knee pain, bilateral At this time, your pain is more notable on the left than right. I have ordered an xray to evaluate this. Aleve is great for joint pain. One in the morning and one in the evening. Low impact exercise is ideal and biking is great. I will call with results, once I get them. If anything changes, pleaselet me know. Thank you! Other Visit Diagnoses Knee pain, unspecified chronicity, unspecified laterality Relevant Orders XR Knee Left 4+ Views (Note in Comments) Knee Pain or Injury: Care Instructions Your Care Instructions Injuries are a common cause of knee problems. Sudden (acute) injuries may be caused by a direct blow to the knee. They can also be caused by abnormal twisting, bending, or falling on the knee. Pain, bruising, or swelling may be severe, and may start within minutes of the injury. Overuse is another cause of knee pain. Other causes are climbing stairs, kneeling, and other activities that use the knee. Everyday wear and tear, especially as you get older, also can cause knee pain. Rest, along with home treatment, often relieves pain and allows your knee to heal. If you have a serious knee injury, you may need tests and treatment. Follow-up care is a patino part of your treatment and safety. Be sure to make and go to all appointments, and call your doctor if you are having problems. It's also a good idea to know your test resultsand keep a list of the medicines you take. How can you care for yourself at home? Be safe with medicines. Read and follow all instructions on the label. ? If the doctor gave you a prescription medicine for pain, take it as prescribed. ? If you are not taking a prescription pain medicine, ask your doctor if you can take an tfxs-ikb-vcwuzkn medicine. Rest and protect your knee. Take a break from any activity that may cause pain. Put ice or a cold pack on your knee for 10 to 20 minutes at a time. Put a thin cloth between the ice and your skin. Prop up a sore knee on a pillow when you ice it or anytime you sit or lie down for the next 3 days.Try to keep it above the level of your heart. This will help reduce swelling. If your knee is not swollen, you can put moist heat, a heating pad, or a warm cloth on your knee. If your doctor recommends an elastic bandage, sleeve, or other type of support for your knee, wear it as directed. Follow your doctor's instructions about how much weight you can put on your leg. Use a cane, crutches, or a walker as instructed. Follow your doctor's instructions about activity during your healing process. If you can do mild exercise, slowly increase your activity. Reach and stay at a healthy weight. Extra weight can strain the joints, especially the knees and hips, and make the pain worse. Losing even a few pounds may help. When should you call for help? Call 911 anytime you think you may need emergency care. For example, call if: You have symptoms of a blood clot in your lung (called a pulmonary embolism). These may include: ? Sudden chest pain. ? Trouble breathing. ? Coughing up blood. Call your doctor now or seek immediate medical care if: You have severe or increasing pain. Your leg or foot turns cold or changes color. You cannot stand or put weight on your knee. Your knee looks twisted or bent out of shape. You cannot move your knee. You have signs of infection, such as: ? Increased pain, swelling, warmth, or redness. ? Red streaks leading from the knee. ? Pus draining from a place on your knee. ? A fever. You have signs of a blood clot in your leg (called a deep vein thrombosis), such as: ? Pain in your calf, back of the knee, thigh, or groin. ? Redness and swelling in your leg or groin. Watch closely for changes in your health, and be sure to contact your doctor if: You have tingling, weakness, or numbness in your knee. You have any new symptoms, such as swelling. You have bruises from a knee injury that last longer than 2 weeks. You do not get better as expected. Where can you learn more? Log into your personal health record on [email or web address] and enter K195 in the Education box to learn more about Knee Pain or Injury: Care Instructions. Current as of: February 18, 2018 Content Version: 12.0 9228-2882 Lively. Care instructions adapted under license by your healthcare professional. If you have questions about a medical condition or this instruction, always ask your healthcare professional. Lively disclaims any warranty or liability for your use of this information. Musculoskeletal Pain: Care Instructions Your Care Instructions Different problems with the bones, muscles, nerves, ligaments, and tendons in the body can cause pain. One or more areas of your body may ache or burn. Or they may feel tired, stiff, or sore. The medical term for this type of pain is musculoskeletal pain. It can have many different causes. Sometimes the pain is caused by an injury such as a strain or sprain. Or you might have pain from using one part of your body in the same way over and over again. This is called overuse. In some cases, the cause of the pain is another health problem such as arthritis or fibromyalgia. The doctor will examine you and ask you questions about your health to help find the cause of your pain. Blood tests or imaging tests like an X-ray may also be helpful. But sometimes doctors can't find a cause of the pain. Treatment depends on your symptoms and the cause of the pain, if known. The doctor has checked you carefully, but problems can develop later. If you notice any problems ornew symptoms, get medical treatment right away. Follow-up care is a patino part of your treatment and safety. Be sure to make and go to all appointments, and call your doctor if you are having problems. It's also a good idea to know your test resultsand keep a list of the medicines you take. How can you care for yourself at home? Rest until you feel better. Do not do anything that makes the pain worse. Return to exercise gradually if you feel better and your doctor says it's okay. Be safe with medicines. Read and follow all instructions on the label. ? If the doctor gave you a prescription medicine for pain, take it as prescribed. ? If you are not taking a prescription pain medicine, ask your doctor if you can take an ftyp-uyt-znjyamk medicine. Put ice or a cold pack on the area for 10 to 20 minutes at a time to ease pain. Put a thin cloth between the ice and your skin. When should you call for help? Call your doctor now or seek immediate medical care if: You have new pain, or your pain gets worse. You have new symptoms such as a fever, a rash, or chills. Watch closely for changes in your health, and be sure to contact your doctor if: You do not get better as expected. Where can you learn more? Log into your personal health record on [email or web address] and enter Q624 in the Education box to learn more about Musculoskeletal Pain: Care Instructions. Current as of: October 29, 2017 Content Version: 12.0 3806-2341 Lively. Care instructions adapted under license by your healthcare professional. If you have questions about a medical condition or this instruction, always ask your healthcare professional. Lively disclaims any warranty or liability for your use of this information. Sinusitis: Care Instructions Your Care Instructions Sinusitis is an infection of the lining of the sinus cavities in your head. Sinusitis often followsa cold. It causes pain and pressure in your head and face. In most cases, sinusitis gets better on its own in 1 to 2 weeks. But some mild symptoms may last for several weeks. Sometimes antibiotics are needed. Follow-up care is a patino part of your treatment and safety. Be sure to make and go to all appointments, and call your doctor if you are having problems. It's also a good idea to know your test resultsand keep a list of the medicines you take. How can you care for yourself at home? Take an dlab-rkw-yhatpsf pain medicine, such as acetaminophen (Tylenol), ibuprofen (Advil, Motrin),or naproxen (Aleve). Read and follow all instructions on the label. If the doctor prescribed antibiotics, take them as directed. Do not stop taking them just because you feel better. You need to take the full course of antibiotics. Be careful when taking sdfi-xpu-qerkajs cold or flu medicines and Tylenol at the same time. Many ofthese medicines have acetaminophen, which is Tylenol. Read the labels to make sure that you are nottaking more than the recommended dose. Too much acetaminophen (Tylenol) can be harmful. Breathe warm, moist air from a steamy shower, a hot bath, or a sink filled with hot water. Avoid cold, dry air. Using a humidifier in your home may help. Follow the directions for cleaning the machine. Use saline (saltwater) nasal washes to help keep your nasal passages open and wash out mucus and bacteria. You can buy saline nose drops at a grocery store or drugstore. Or you can make your own at home by adding 1 teaspoon of salt and 1 teaspoon of baking soda to 2 cups of distilled water. If you make your own, fill a bulb syringe with the solution, insert the tip into your nostril, and squeeze gently. Blow your nose. Put a hot, wet towel or a warm gel pack on your face 3 or 4 times a day for 5 to 10 minutes each time. Try a decongestant nasal spray like oxymetazoline (Afrin). Do not use it for more than 3 days in a row. Using it for more than 3 days can make your congestion worse. When should you call for help? Call your doctor now or seek immediate medical care if: You have new or worse swelling or redness in your face or around your eyes. You have a new or higher fever. Watch closely for changes in your health, and be sure to contact your doctor if: You have new or worse facial pain. The mucus from your nose becomes thicker (like pus) or has new blood in it. You are not getting better as expected. Where can you learn more? Log into your personal health record on [email or web address] and enter I933 in the Education box to learn more about Sinusitis: Care Instructions. Current as of: March 18, 2018 Content Version: 12.0 2774-4812 Lively. Care instructions adapted under license by your healthcare professional. If you have questions about a medical condition or this instruction, always ask your healthcare professional. Lively disclaims any warranty or liability for your use of this information. documented in this encounter* Patient Instructions* Paulette Peters CNP - 10/30/2018 10:42 AM EDT Problem List Items Addressed This Visit Respiratory Allergic rhinitis - Primary You are having a flare of allergies, you are still congested. Recommend you get some OTC Nasacort and use it over the next few weeks until your symptoms improve. I am also going to give you a short course of oral steroids to help decrease inflammation caused by the sinus infection. Also recommend you use a Neti pot on a daily basis. Relevant Medications methylPREDNISolone (MEDROL DOSEPACK) 4 mg tablet Allergies: Care Instructions Your Care Instructions Allergies occur when your body's defense system (immune system) overreacts to certain substances. The immune system treats a harmless substance as if it were a harmful germ or virus. Many things can cause this overreaction, including pollens, medicine, food, dust, animal dander, and mold. Allergies can be mild or severe. Mild allergies can be managed with home treatment. But medicine may be needed to prevent problems. Managing your allergies is an important part of staying healthy. Your doctor may suggest that you have allergy testing to help find out what is causing your allergies. When you know what things trigger your symptoms, you can avoid them. This can prevent allergy symptoms and other health problems. For severe allergies that cause reactions that affect your whole body (anaphylactic reactions), your doctor may prescribe a shot of epinephrine to carry with you in case you have a severe reaction. Learn how to give yourself the shot and keep it with you at all times. Make sure it is not . Follow-up care is a patino part of your treatment and safety. Be sure to make and go to all appointments, and call your doctor if you are having problems. It's also a good idea to know your test resultsand keep a list of the medicines you take. How can you care for yourself at home? If you have been told by your doctor that dust or dust mites are causing your allergy, decrease thedust around your bed: ? Wash sheets, pillowcases, and other bedding in hot water every week. ? Use dust-proof covers for pillows, duvets, and mattresses. Avoid plastic covers because they teareasily and do not breathe. Wash as instructed on the label. ? Do not use any blankets and pillows that you do not need. ? Use blankets that you can wash in your washing machine. ? Consider removing drapes and carpets, which attract and hold dust, from your bedroom. If you are allergic to house dust and mites, do not use home humidifiers. Your doctor can suggest ways you can control dust and mites. Look for signs of cockroaches. Cockroaches cause allergic reactions. Use cockroach baits to get ridof them. Then, clean your home well. Cockroaches like areas where grocery bags, newspapers, empty bottles, or cardboard boxes are stored. Do not keep these inside your home, and keep trash and food containers sealed. Seal off any spots where cockroaches might enter your home. If you are allergic to mold, get rid of furniture, rugs, and drapes that smell musty. Check for mold in the bathroom. If you are allergic to outdoor pollen or mold spores, use air-conditioning. Change or clean all filters every month. Keep windows closed. If you are allergic to pollen, stay inside when pollen counts are high. Use a vacuum strip cleaner with aHEPA filter or a double-thickness filter at least two times each week. Stay inside when air pollution is bad. Avoid paint fumes, perfumes, and other strong odors. Avoid conditions that make your allergies worse. Stay away from smoke. Do not smoke or let anyone else smoke in your house. Do not use fireplaces or wood- burning stoves. If you are allergic to your pets, change the air filter in your furnace every month. Use high-efficiency filters. If you are allergic to pet dander, keep pets outside or out of your bedroom. Old carpet and cloth furniture can hold a lot of animal dander. You may need to replace them. When should you call for help? Give an epinephrine shot if: You think you are having a severe allergic reaction. You have symptoms in more than one body area, such as mild nausea and an itchy mouth. After giving an epinephrine shot call 911, even if you feel better. Call 911 if: You have symptoms of a severe allergic reaction. These may include: ? Sudden raised, red areas (hives) all over your body. ? Swelling of the throat, mouth, lips, or tongue. ? Trouble breathing. ? Passing out (losing consciousness). Or you may feel very lightheaded or suddenly feel weak, confused, or restless. You have been given an epinephrine shot, even if you feel better. Call your doctor now or seek immediate medical care if: You have symptoms of an allergic reaction, such as: ? A rash or hives (raised, red areas on the skin). ? Itching. ? Swelling. ? Belly pain, nausea, or vomiting. Watch closely for changes in your health, and be sure to contact your doctor if: You do not get better as expected. Where can you learn more? Log into your personal health record on [email or web address] and enter W171 in the Education box to learn more about Allergies: Care Instructions. Current as of: November 22, 2017 Content Version: 12.0 4665-6478 Lively. Care instructions adapted under license by your healthcare professional. If you have questions about a medical condition or this instruction, always ask your healthcare professional. Lively disclaims any warranty or liability for your use of this information. documented in this encounter* Patient Instructions* Paulette Peters CNP - 06/13/2018 8:53 AM EST Problem List Items Addressed This Visit Respiratory Acute frontal sinusitis - Primary I am sending in a prescription for Augmentin x 10 days, take this with food. I also recommend you stop using the Flonase which has alcohol in it, this could be causing your nosebleeds. I recommend OTC Nasacort which has no alcohol in it and no odor. Follow instructions on the bottle. Also recommendyou get a Neti Pot to help with allergies and sinus symptoms. You can take a Claritin or Kirsten daily to help with drainage. Relevant Medications amoxicillin-clavulanate (AUGMENTIN) 875-125 mg per tablet Allergic rhinitis Start taking Claritin, if this does not seem to help you can take Kirsten. Also recommend Nasacort or Flonase when you are having symptoms of sinus pressure or congestion. Use as needed, use for 2 weeks with this illness. Other Visit Diagnoses Body aches Relevant Orders POC Influenza A/B, Molecular (Completed) in this encounter Assessments Diagnosis Acute non-recurrent maxillar y sinusitis Diagnosis Acute non-recurrent frontal sinusitis - Primary Left tennis elbow Chest pain, unspecified type Wellness examination Diagnosis Wellness examination - Prima ry Risk for falls Seasonal allergic rhinitis, unspecified allergic rhinitis trigger Postmenopausal Asymptomatic postmenopausal status (age-related) (natural) Fibrocystic disease of both breasts Encounter for screening mamm ogram for malignant neoplasm of breast Diagnosis General medical exam- Primary Unspecified general medical examination Disorder of bone and cartilage Disorder of bone and cartilage, unspecified Breast screening Breast screening, unspecified At low risk for fall Breast cancer screening Breast screening, unspecified Diagnosis Acute non-recurrent maxillary sinusitis- Primary Knee pain, unspecified chronicity, unspecified laterality Diagnosis Seasonal allergic rhinitis, unspecified trigger- Primary Diagnosis Acute non-recurrent frontal sinusitis- Primary Body aches Generalized pain Seasonal allergic rhinitis, unspecified trigger Reason for Referral Status Reason Specialty Diagnoses / Procedures Referre d By Contact Referred To Contact Closed Cardiology Diagnoses Chest pain, unspecified type Procedures ECG 12 Lead Paulette Peters CNP [address] [place] [id number] Status Reason Specialty Diagnoses / Procedures Referred By Contact Referred To Contact Authorized General Surgery Diagnoses Wellness examination Marissa Chakraborty MD [address] [place] [address] Bettina Myrick MD [address] [place] [address] Status Reason Specialty Diagnoses / Procedures Referred By Contact Referred To Contact Authorized Radiology Diagnoses Disorder of bone and cartilage Procedures XR Bone Density DEXA Axial Marissa Chakraborty MD [address] [place] [address] Specialty Diagnoses / Procedures Referred By Contac t Referred To Contact Diagnoses Acute pharyngitis, unspecified etiology Chris Duran, DO [address] [place] [address] Referral ID Status Reason Start Date Expiration Date V isits Requested Visits Authorized [id number] Pending Review 1 1 Specialty Diagnoses / Procedures Referred By Anamaria garza Referred To Contact Radiology Diagnoses Encounter for screening mammogram for malignant neoplasm of breast Procedures BI mammo bilateral screening tomosynthesis BI mammo bilateral screening tomosynthesis Bhanu Meng MD [address] [place] [id number] Referral ID Status Reason Start Date Expiration Date Visits Requested Visits Authorized [id number] Authorized Perform Procedure 06/20/2023 06/19/2024 1 1 History of Present Illness * SpringPau[facility] [address] [employer]OPER - 04/12/2018 9:38 AM EST Formatting of this note may be different from the original. Subjective Patient ID: Liam Hu is a 67 y.o. female. Patient is here today for complaints of sinus symptoms that have been gradually worsening x the past two weeks. She is also here because she wants a refill on her meloxicam, she states that she takesit for off and on arm pain in her left elbow. She states she has been treated for tennis elbow in the past, it flares off and on depending on the type of work she is doing repetitvely and how much she rests her arm. She states that about a week ago she also had an instance of chest pressure, she thinks it was heartburn or anxiety but is unsure. She did not have any shortness of breath or diaphoresis at the time.She did have pain that went down her left arm and radiated to the middle of her back. It only happened the one time and has not happened since. Her arm has continued to ache and feels different than h er usual tennis elbow. Sinusitis This is a new problem. Episode onset: 2 weeks. The problem has been gradually worsening since onset. There has been no fever. Her pain is at a severity of 7/10. The pain is moderate. Associated symptoms include congestion, headaches and sinus pressure (frontal). Pertinent negatives include no chills, coughing, diaphoresis, ear pain, hoarse voice, neck pain, shortness of breath, sneezing, sore throat or swollen glands. (PND Body aches) Past treatments include antibiotics (took a few doses of Augmentin, Flonase). The treatment provided no relief. The following portions of the patient's history were reviewed and updated as appropriate: allergies, current medications, past family history, past medical history, past social history, past surgicalhistory and problem list. Review of Systems Constitutional: Negative for activity change, appetite change, chills, diaphoresis, fatigue and unexpected weight change. HENT: Positive for congestion, postnasal drip, rhinorrhea, sinus pain and sinus pressure (frontal).Negative for ear pain, hoarse voice, sneezing and sore throat. Eyes: Negative for photophobia and visual disturbance. Respiratory: Negative for cough, chest tightness, shortness of breath and wheezing. Cardiovascular: Positive for chest pain. Negative for palpitations. Gastrointestinal: Negative for constipation, diarrhea, nausea and vomiting. Endocrine: Negative for cold intolerance and heat intolerance. Genitourinary: Negative for dysuria, frequency and urgency. Musculoskeletal: Negative for arthralgias, back pain, myalgias and neck pain. Skin: Negative. Neurological: Positive for headaches. Negative for dizziness and light-headedness. Hematological: Negative. Psychiatric/Behavioral: Negative for dysphoric mood and sleep disturbance. The patient is not nervous/anxious. Objective Physical Exam Constitutional: She is oriented to person, place, and time. She appears well- developed and well-nourished. HENT: Right Ear: External ear normal. A middle ear effusion is present. Left Ear: External ear normal. A middle ear effusion is present. Nose: Right sinus exhibits frontal sinus tenderness. Right sinus exhibits no maxillary sinus tenderness. Left sinus exhibits frontal sinus tenderness. Left sinus exhibits no maxillary sinus tenderness. Mouth/Throat: Uvula is midline, oropharynx is clear and moist and mucous membranes are normal. Eyes: Conjunctivae, EOM and lids are normal. Neck: Normal range of motion and full passive range of motion without pain. No JVD present. Carotidbruit is not present. No thyromegaly present. Cardiovascular: Normal rate, regular rhythm and normal heart sounds. No murmur heard. Pulmonary/Chest: Effort normal and breath sounds normal. Musculoskeletal: Normal range of motion. Lymphadenopathy: Head (right side): Tonsillar adenopathy present. No submandibular adenopathy present. Head (left side): Tonsillar adenopathy present. No submandibular adenopathy present. Neurological: She is alert and oriented to person, place, and time. Skin: Skin is warm and dry. Psychiatric: She has a normal mood and affect. Her speech is normal and behavior is normal. Vitals: 04/12/18 0914 04/12/18 1000 BP: (!) (P) 154/84 128/80 BP Location: (P) Right arm Right arm Patient Position: (P) Sitting Sitting BP Cuff Size: (P) Adult Adult Pulse: (P) 76 Resp: (P) 18 Temp: (P) 98.4 ?F (36.9 ?C) TempSrc: (P) Oral SpO2: (P) 98% Weight: 55.8 kg (123 lb) Height: 5' 1 Body mass index is 23.24 kg/m . Outpatient Prescriptions Marked as Taking for the 04/12/18 encounter (Office Visit) with Paulette Peters CNP Medication Sig Dispense Refill cholecalciferol, vitamin D3, 1,000 unit capsule Take 1,000 Units by mouth Takes 1-2 tablets daily. comp stocking, knee,long,small Misc 1 Units by Miscellaneous route daily. 2 each 3 fluticasone (FLONASE) 50 mcg/actuation nasal spray Instill 2 (two) sprays into each nostril daily. 16 g 11 hsgwfkwdhsd-ckojcomip-czq C-Mn 500-400 mg cap Take 1 capsule by mouth. meloxicam (MOBIC) 7.5 MG tablet Take 1 (one) tablet (7.5 mg total) by mouth daily . 30 tablet 11 [DISCONTINUED] meloxicam (MOBIC) 7.5 MG tablet Take 1 (one) tablet (7.5 mg total) by mouth daily. 30 tablet 11 Allergies Allergen Reactions Cat Dander Itching Demerol [Meperidine] GI Intolerance Agrawal Pham Other (See Comments) NASAL CONGESTION Ragweed Other (See Comments) NASAL CONGESTION Past Medical History: Diagnosis Date Colon cancer screening [facility]/Dr. Bijan Carrillo Colon polyp 09/01/2016 [facility]/Dr. Bijan Carrillo Small polyp 3mm Hemorrhoids [facility]/Dr. Bijan Carrillo Rectum revealed small internal hemorrhoids Left tennis elbow 02/08/2018 Leg pain, bilateral Sinus congestion Tubular adenoma 09/01/2016 [facility]/Dr. Bijan Carrillo Varicose veins of both lower extremities Past Surgical History: Procedure Laterality Date BLADDER SUSPENSION COLONOSCOPY W/ BIOPSIES 09/01/2017 Dr Carrillo PAP TEST 02/2017 [facility]/Dr. Bijan Carrillo SCLEROTHERAPY Bilateral 2000; 2009 DR MADRIGAL/DR NGUYEN VAGINAL PROLAPSE REPAIR 2006 VEIN SURGERY Right 10/24/2000 High ligation & division greater saphenous vein-Dr. Madrigal VEIN SURGERY Bilateral 1975 bilateral stripping-[facility] VEIN SURGERY Left 2000 ligation & division greater saphenous vein-Dr Madrigal Assessment/Plan: Problem List Items Addressed This Visit Respiratory Acute frontal sinusitis - Primary I am sending in a prescription for Ceftin x 10 days, take this with food. I also recommend you stopusing the Flonase which has alcohol in it, this could be causing your nosebleeds. I recommend OTC Nasacort which has no alcohol in it and no odor. Follow instructions on the bottle. Also recommend you get a Neti Pot to help with allergies and sinus symptoms. Relevant Medications cefUROXime (CEFTIN) 500 MG tablet Musculoskeletal and Integument Left tennis elbow When you do repetitive motions or tasks the tendon in your arm continues to be inflamed and will not heal. You can get one of the arm bands to help with pain, must let the area rest to heal. Relevant Medications meloxicam (MOBIC) 7.5 MG tablet Other Wellness examination Will do routine labs while you are here today. Eat meat, vegetables, nuts and seeds, some fruit, very little starch and absolutely no sugar. If you can grow it or kill it, then that's what you should be eating..... Chicken, turkey, fish pork, beef, ALL vegetables and fruit. If it is processed or you can not pronounce the ingredients, do not eat it! Shop the outside perimeter of the grocery store. Listen to your body, if you are hungry all the time you may need to increase your intake of healthyveggies and small healthy snacks. Eat whole, healthy foods and you won't need to count calories. Increase your activity level; the more you move your body the healthier you will be and the better you will feel! Diet and Exercise is not a fad, it really works! Relevant Orders Lipid Panel CBC and Differential TSH with Reflex Free T4 Comprehensive Metabolic Panel Chest pain You state while you were active about one week ago you had chest pressure that radiated to your midback. You have also developed left arm achiness x the past week, it is your entire arm and feels different than your tennis elbow. You have not had the chest or back pain since that time but your armcontinues to ache. Will do a troponin and an EKG to see if there are any changes. You are active and healthy but better to be safe than sorry. Relevant Orders Troponin Sedimentation Rate TSH with Reflex Free T4 ECG 12 Lead (Completed) For any new medications prescribed today, patient was educated about indications for the medication, how to take the medication and potential side effects of the medications. in this encounter* Marissa Chakraborty MD - 02/27/2017 9:13 AM EDT Formatting of this note may be different from the original. Problem List Items Addressed This Visit Respiratory Allergic rhinitis Evidence on exam of chronic mouth breathing secondary to chronic nasal narrowing. Suggest the use of fexofenadine or Kirsten 180 mg once a day Flonase 1 puff each side twice a day. Suggest frequent use of nasal saline. Suggest simply saline which is an [id number]-[id number] nasal spray Other Wellness examination Sounds like a DEXA scan is in order since it has been more than 2 years would suggest zoster chickenpox immunization as well as pneumococcal. Suggest both the Prevnar 13 as well as Prevnar 23. You had the tetanus in 2014. Also suggest that we get the old information on prior testing. We will also order the hepatitis C antibody today and the screening mammogram. Other Visit Diagnoses Risk for falls - Primary Subjective: Patient ID: Nelsy Leal is a 66 y.o. female. HPI patient is here today for annual wellness exam. Her last Pap test was 2 years ago her last mammogram was greater than 2 years ago. She does not remove the exact date of her last DEXA but it was also more than 2 years ago. She has not had any hepatitis C screening. And she has not had zoster or pneumococcal immunization series. Her last tetanus was in 2014. Her only complaints today were the fact that she was and the [place] [facility] 2 weeks ago for sinusitis. She was placed on a prescription for Augmentin. The following portions of the patient's history were reviewed and updated as appropriate: allergies, current medications, past family history, past medical history, past social history, past surgicalhistory and problem list. Review of Systems Constitutional: Negative for activity change, appetite change, chills and fever. HENT: Positive for congestion, postnasal drip, rhinorrhea and sinus pressure. Negative for ear discharge, ear pain, hearing loss, tinnitus and trouble swallowing. Eyes: Negative for pain and visual disturbance. Respiratory: Negative for cough and wheezing. Cardiovascular: Negative for chest pain and palpitations. Gastrointestinal: Negative for abdominal pain, constipation and diarrhea. Endocrine: Negative for cold intolerance and heat intolerance. Genitourinary: Negative for dysuria, pelvic pain, vaginal bleeding and vaginal discharge. Musculoskeletal: Negative for back pain and joint swelling. Knee discomfort and take glucosamine sulfate as needed. Skin: Negative for color change, rash and wound. Allergic/Immunologic: Negative for environmental allergies and food allergies. Neurological: Negative for dizziness, seizures, syncope and headaches. Hematological: Negative for adenopathy. Does not bruise/bleed easily. Psychiatric/Behavioral: Negative for dysphoric mood. The patient is not nervous/anxious. Objective: Vitals: 02/27/17 0851 BP: (!) 164/75 BP Location: Left arm Patient Position: Sitting BP Cuff Size: Youth Pulse: 67 Resp: 18 Temp: (!) 95.4 F (35.2 C) TempSrc: Tympanic Weight: 55.8 kg (123 lb 1.6 oz) Height: 5' 1 Physical Exam Constitutional: She is oriented to person, place, and time. She appears well- developed and well-nourished. No distress. HENT: Head: Normocephalic and atraumatic. Right Ear: External ear normal. Left Ear: External ear normal. Nose: Nose normal. Mouth/Throat: Oropharynx is clear and moist. No oropharyngeal exudate. Inflammation without complete obstruction in the nares and posterior nasopharynx Eyes: EOM are normal. Pupils are equal, round, and reactive to light. Right eye exhibits no discharge. Left eye exhibits no discharge. No scleral icterus. Neck: Normal range of motion. Neck supple. No JVD present. No tracheal deviation present. No thyromegaly present. Cardiovascular: Normal rate, regular rhythm and normal heart sounds. No murmur heard. Pulmonary/Chest: Effort normal and breath sounds normal. No stridor. Bilateral breast exam was normal normal no masses no discharge per nipple no axillary lymphadenopathy noted. Abdominal: Soft. There is no tenderness. Genitourinary: Vagina normal and uterus normal. Genitourinary Comments: Mild erythema across the tip of the cervix. No obvious drainage or ulceration noted. Consistent with atrophic cervicitis. Patient has a grade 1 cystocele without leakage. Musculoskeletal: She exhibits no edema or tenderness. There are signs of come chronic venous small varicosities on both lower extremities with hemosideriann staining in patches. Lymphadenopathy: She has no cervical adenopathy. Neurological: She is alert and oriented to person, place, and time. No cranial nerve deficit. Skin: Skin is warm and dry. No rash noted. Psychiatric: She has a normal mood and affect. Her behavior is normal. Judgment and thought contentnormal. Assessment/Plan: Problem List Items Addressed This Visit Respiratory Allergic rhinitis Evidence on exam of chronic mouth breathing secondary to chronic nasal narrowing. Suggest the use of fexofenadine or Kirsten 180 mg once a day Flonase 1 puff each side twice a day. Suggest frequent use of nasal saline. Suggest simply saline which is an [id number] nasal spray Other Wellness examination Sounds like a DEXA scan is in order since it has been more than 2 years would suggest zoster chickenpox immunization as well as pneumococcal. Suggest both the Prevnar 13 as well as Prevnar 23. You had the tetanus in 2015. Also suggest that we get the old information on prior testing. We will also order the hepatitis C antibody today and the screening mammogram. Other Visit Diagnoses Risk for falls - Primary * Dee Garay, COUNTER TENDER - 02/27/2017 8:59 AM EDT ER visit in [place] 02/22 for sinus issues. Put on Augmentin 875-125 in this encounter* Sherley No RN - 06/14/2018 9:46 AM EST ATTENTION PROVIDER: Visit Summary of abnormal findings Vital Signs PACU Vitals 06/14/18 0916 BP: 128/73 Pulse: 85 Resp: 16 Temp: 97.5 F (36.4 C) SpO2: 95% PainSc: 0-No pain BMI Body mass index is 23.24 kg/m . Advance Directives Living Will and Will bring copy at next office visit Hearing/Vision WNL Fall Risk Score out of 19 Patient Self Risk Assessment Score: 0 Mini Cog Score 0 is lowest A cut point of <3 on the Mini-Cog has been validated for dementia screening, but many individuals with clinically meaningful cognitive impairment will score higher. A cut point of <4 may indicate a need for further evaluation of cognitive status.: 4 GAD7 Score out of 21 DOMENIC-7 Score: 2 Depression Score out of 27 PHQ-2 Total Score: 0 PHQ-9 Total Score: 1 Labs Ordered Orders Placed This Encounter XR Bone Density DEXA Axial Education Completed Fall Prevention, Heart Healthy Diet, Immunization Teaching, Older Adult Physical Activity and age related memory loss, high fiber diet Health Maintenence Gaps Patient declined immunizations at this time Medication Concerns none Identified issues to talk to the Provider none Physical Examination: General appearance - alert, well appearing, and in no distress, oriented to person, place, and time and normal appearing weight Mental status - alert, oriented to person, place, and time, normal mood, behavior, speech, dress, motor activity, and thought processes Chest - clear to auscultation, no wheezes, rales or rhonchi, symmetric air entry Heart - normal rate, regular rhythm, normal S1, S2, no murmurs, rubs, clicks or gallops Subjective Liam Jeff Hu is a 67 y.o. female who presents for a Medicare Wellness Visit. Medicare Risk Assessment Advanced Care Planning Do you have a POLST (physician order for life sustaining treatment)?: (!) No Do you have an advanced directive (living will and/or durable power of director government for health care)?: Living will(copy requested) Pain/Social/Activity During the past four weeks, what was the hardest physical activity you could do for at least 2 minutes?: Moderate (like brisk walking) Are you active for about 20 minutes three or more days a week?: Yes, most of the time During the past four weeks, how much bodily pain did you generally have?: No pain What best describes your current living arrangements?: With spouse/domestic partner Do you ever drive after drinking or ride with a transfer driver who has been drinking or is impaired?: No During the past year, have you used drugs other than those required for medical reasons?: No Diet In the past seven days, how many servings of fruits and vegetables did you typically eat each day?:1-3 servings per day In the past seven days, how many servings of high fiber or whole grain foods did you typically eat each day?: 3-4 servings per day In the past seven days, how many servings of high fat foods did you typically eat each day? : 0-2 servings per day In the past seven days, how many sugar sweetened (not diet) beverages did you typically consume each day? : 0-1 servings per day Independent Activities Are you having difficulties driving your car?: No Do you always fasten your seat belt when you are in a car?: Yes, usually How would you describe your ability to handle your finances?: Manage independently Do you have trouble with finding transportation?: No Can you prepare your own meals?: Yes Can you do your housework without help?: Yes Because of any health problems, do you need the help of another person with your personal care needs? (For example, eating, bathing, dressing, or getting around the house.): No Does your home have throw rugs, poor lighting or slippery bathtub or shower?: No Does your home have grab bars in bathrooms or handrails on stairs and steps?: (!) No During the past four weeks, was someone available to help you if you needed and wanted help? (For example, if you felt very nervous, lonely or blue; got sick and had to stay in bed; needed someone totalk to; needed help with daily chores; or needed help: Yes, a little General During the past four weeks, how would you rate your health in general?: Very Good How would you describe the condition of your mouth and teeth - including false teeth or dentures?: Very Good Whether or not you use a hearing aid, do you think you have a hearing problem or do others think you have a hearing problem?: No Whether or not you use glasses or contacts, do you have difficulty driving, watching television, reading, or doing any of your daily activities because of your eyesight?: No In the past six months, have you had an unexplained weight loss of 10 pounds or more?: No In the past six months has accidental leakage of urine been a problem for you?: No Medications Do you and/or your caregiver, understand why you take these medications?: Yes How many different medications do you take that are prescribed by a doctor?: None How often do you have trouble taking medicines the way you have been told to take them?: None I do not take medicine Falls Risk Assessment STEADI Protocol Advised to use cane/walker?: No Holds onto furniture/benavidez: No Uses hands to stand up from a chair: No Trouble stepping onto curb: No Rushes to toilet: No Lost feeling in feet: No Medicine makes me light-headed: No Medicine for sleep or mood: No Often feel sad/depressed: No Medicare Mini Cog Step 1: Three Word Registration Version Used: Version 1: Banana, [place], Chair Step 2: Clock Drawing Step 2 score: Normal clock - 2 points Clock has all numbers placed in the correct sequence & position (e.g., 12, 3, 6 and 9 are in anchor positions) with no missing or duplicate numbers. Hands are pointing to the 11 & 2 (11:10). Hand length is not scored. Step 3: Three Word Recall Record patient's answers to the right: banana sunrise Step 3: Three Word Recall Score: 2 Words Recalled Total score = Word Recall score + Clock Draw score A cut point of <3 on the Mini-Cog has been validated for dementia screening, but many individuals with clinically meaningful cognitive impairment will score higher. A cut point of <4 may indicate a need for further evaluation of cognitive status.: 4 DOMENIC-7 Over the last 2 weeks, how often have you been bothered by the following problems? Feeling nervous, anxious or on edge: Not at all Not being able to stop or control worrying: Not at all Worrying too much about different things: Several days Trouble relaxing: Several days Being so restless that it is hard to sit still: Not at all Becoming easily annoyed or irritable: Not at all Feeling afraid as if something awful might happen: Not at all DOMENIC-7 Score: 2 If you checked off any problems, How difficult have these problems made it for you to do your work, take care of things at home, or get along with other people?: Not difficult at all PHQ2 (and 9, if needed) Depression (PHQ-9): Over the last 2 weeks, how often have you been bothered by any of the followingproblems? Little interest or pleasure in doing things: Not at all Feeling down, depressed, or hopeless: Not at all PHQ-2 Total Score: 0 Trouble falling or staying asleep, or sleeping too much: Several days Feeling tired or having little energy: Not at all Poor appetite or overeating: Not at all Feeling bad about yourself - or that you are a failure or have let yourself or your family down: Not at all Trouble concentrating on things, such as reading the newspaper or watching television: Not at all Moving or speaking so slowly that other people could have noticed. Or the opposite - being so fidgety or restless that you have been moving around a lot more than usual: Not at all Thoughts that you would be better off , or of hurting yourself in some way: Not at all PHQ-9 Total Score: 1 Comprehensive Medical and Social History: Patient Active Problem List Diagnosis SNOMED CT(R) Varicosities of leg VARICOSE VEINS OF LOWER EXTREMITY Spider veins SPIDER NEVUS Acute frontal sinusitis ACUTE FRONTAL SINUSITIS Allergic rhinitis ALLERGIC RHINITIS Knee pain, bilateral KNEE PAIN Left tennis elbow LATERAL EPICONDYLITIS OF LEFT HUMERUS Past Medical History: Diagnosis Date Colon polyp 09/01/2016 [facility]/Dr. Bijan Carrillo Small polyp 3mm Hemorrhoids 09/01/2016 [facility]/Dr. Bijan Carrillo Rectum revealed small internal hemorrhoids Left tennis elbow 02/08/2018 Tubular adenoma 09/01/2016 [facility]/Dr. Bijan Carrillo Varicose veins of both lower extremities 1975 Past Surgical History: Procedure Laterality Date BLADDER SUSPENSION 2006 COLONOSCOPY W/ BIOPSIES 09/01/2017 Dr Carrillo PAP TEST 02/2017 [facility]/Dr. Bijan Carrillo SCLEROTHERAPY Bilateral 2000; 2009 DR MADRIGAL/DR NGUYEN VAGINAL PROLAPSE REPAIR 2006 VEIN SURGERY Right 10/24/2000 High ligation & division greater saphenous vein-Dr. Madrigal VEIN SURGERY Bilateral 1975 bilateral stripping-[facility] VEIN SURGERY Left 2000 ligation & division greater saphenous vein-Dr Madrigal Current Outpatient Medications Medication Sig Dispense Refill amoxicillin-clavulanate (AUGMENTIN) 875-125 mg per tablet Take 1 (one) tablet by mouth 2 (two) times a day for 10 days . 20 tablet 0 BIOTIN, BULK, MISC cholecalciferol, vitamin D3, 1,000 unit capsule Take 1,000 Units by mouth Takes 1-2 tablets daily. comp stocking, knee,long,small Misc 1 Units by Miscellaneous route daily. 2 each 3 fluticasone (FLONASE) 50 mcg/actuation nasal spray Instill 2 (two) sprays into each nostril daily. (Patient taking differently: Instill 2 sprays into each nostril daily as needed .) 16 g 11 pwuhrhlkamd-lgpvcmitz-elf C-Mn 500-400 mg cap Take 1 capsule by mouth. meloxicam (MOBIC) 7.5 MG tablet Take 1 (one) tablet (7.5 mg total) by mouth daily . (Patient takingdifferently: Take 7.5 mg by mouth daily as needed .) 30 tablet 11 No current facility-administered medications for this visit. Social History Socioeconomic History Marital status: Spouse name: Vitor Number of children: 3 Years of education: 13 Highest education level: High school graduate Social Needs Financial resource strain: Not hard at all Food insecurity - worry: Never true Food insecurity - inability: Never true Transportation needs - medical: No Transportation needs - non-medical: No Occupational History None Tobacco Use Smoking status: Never Smoker Smokeless tobacco: Never Used Substance and Sexual Activity Alcohol use: Yes Frequency: 2-4 times a month Drinks per session: 1 or 2 Binge frequency: Never Comment: 5 glasses of wine a month Drug use: No Sexual activity: Yes Partners: Male control/protection: Post-menopausal Other Topics Concern None Social History Narrative None Allergies: Allergies Allergen Reactions Cat Dander Itching Demerol [Meperidine] GI Intolerance Agrawal Pham Other (See Comments) NASAL CONGESTION Ragweed Other (See Comments) NASAL CONGESTION Care Team Patient Care Team: Marissa Chakraborty MD as PCP - General (Family Medicine) Pharmacy / Equipment Co. (DME) [id number] - [address] [address] Objective Blood pressure 128/73, pulse 85, temperature 97.5 F (36.4 C), resp. rate 16, height 5' 1 , weight 55.8 kg (123 lb), SpO2 95 %. Body mass index is 23.24 kg/m . Vitals: PACU Vitals 06/14/18 0916 BP: 128/73 Pulse: 85 Resp: 16 Temp: 97.5 F (36.4 C) SpO2: 95% PainSc: 0-No pain Vision and Hearing Screen: Hearing Screening 125Hz 250Hz 500Hz 1000Hz 2000Hz 3000Hz 4000Hz 6000Hz 8000Hz Right ear: Pass Left ear: Pass Visual Acuity Screening Right eye Left eye Both eyes Without correction: 20/25 With correction: Assessment: The primary encounter diagnosis was General medical exam. Diagnoses of Disorder of bone and cartilage, Breast screening, At low risk for fall, and Breast cancer screening were also pertinent to this visit. Plan: During the course of the visit the patient was educated and counseled about appropriate screening and preventive services including: Advice / Referrals: Provide Healthwise patient instructions Handouts Reviewed and discussed with Patient: Fall Prevention, Heart Healthy Diet, Immunization Teaching, Older Adult Physical Activity and age related memory loss, high fiber diet 5-Year Plan: Health Maintenance Topic Date Due MAMMOGRAM 1950 ZOSTER VACCINES (1 of 2) 06/14/2019 (Originally 2000) PNEUMOCOCCAL VACCINE AGE 65+ (2 of 2 - PPSV23) 01/25/2019 Jolly Fall Risk Assessment 06/14/2019 ANNUAL EXAM 06/14/2019 COLONOSCOPY 09/01/2022 LIPID PANEL 04/12/2023 TETANUS EVERY 10 YR 12/01/2024 HEPATITIS C SCREENING Completed DEXA SCAN Completed SEQUENTIAL INFLUENZA VACCINE Addressed Counseling on Fall Prevention Discuss if any falls over past 12 months: Discussed with patient Assess living environment for lighting, hazards, and assistive devices: Discussed with patient Counseling on Exercise Advise to start, increase, or maintain level of exercise in order to reach goal of 30 minutes of moderate activity at least 4 days per week. : Discussed with patient Counseling on Nutrition Assess and review protein, fat, simple sugar and fiber intake: Discussed with patient Recommend that half of plate is filled with fresh fruit, raw or steamed vegetable per meal: Discussed with patient Counseling on Urinary Incontinence Review history of bowel and urinary incontinence and any recent changes in bowel habits and micturition: Discussed with patient Discuss bladder training, exercises, medication and surgery: Discussed with patient Patient Instructions (the written plan) was given to the patient. STEADI Falls Evaluation LOW Falls Risk Evaluation: STEADI Falls Risk - 06/14/18 0905 Patient's Ambulatory Status Is Patient Ambulatory? Y JOLLY Protocol Fell in past year 0 (No) Unsteady when walks 0 (No) Worried about falling 0 (No) Advised to use cane/walker? 0 (No) Holds onto furniture/benavidez 0 (No) Uses hands to stand up from a chair 0 (No) Trouble stepping onto curb 0 (No) Rushes to toilet 0 (No) Lost feeling in feet 0 (No) Medicine makes me light-headed 0 (No) Medicine for sleep or mood 0 (No) Often feel sad/depressed 0 (No) Patient Self Risk Assessment Score 0 Falls Assessment and Plan: Liam has been evaluated for her risk of falling and is considered LOW risk. Patient given Home Safety Checklist, Stay Independent Brochure and Chair Rise Exercise in AVS. Referred to a community based program such as [facility], [facility], or [facility] and provided information about each. Patient is currently on Vit D. New Medications ordered: None Additional tests ordered: None Repeat fall risk assessment in 12 months. in this encounter* Anna Pitts PA-C - 10/19/2018 2:05 PM EDT Subjective Patient ID: Liam Navarro is a 68 y.o. female. Sinusitis This is a new problem. The current episode started 1 to 4 weeks ago. The problem has been graduallyworsening since onset. There has been no fever. Her pain is at a severity of 6/10. The pain is moderate. Associated symptoms include congestion, coughing, headaches, sinus pressure, sneezing, a sore throat (feels raw from drainage) and swollen glands. Pertinent negatives include no chills, diaphoresis, ear pain, hoarse voice, neck pain or shortness of breath. Past treatments include oral decongestants, acetaminophen and spray decongestants. The treatment provided mild relief. The following portions of the patient's history were reviewed and updated as appropriate: allergies, current medications, past family history, past medical history, past social history, past surgicalhistory and problem list. [facility] reviewed briefly today, patient to go home and review records for dates of various diagnosis. We will review further at next visit. Vitals: 10/19/18 1355 BP: 130/77 BP Location: Left arm Patient Position: Sitting BP Cuff Size: Adult Pulse: 66 Resp: 18 Temp: 98 F (36.7 C) TempSrc: Oral SpO2: 98% Weight: 55.8 kg (123 lb) Height: 5' 1 Past Medical History: Diagnosis Date Colon polyp 09/01/2016 [facility]/Dr. Bijan Carrillo Small polyp 3mm Hemorrhoids 09/01/2016 [facility]/Dr. Bijan Carrillo Rectum revealed small internal hemorrhoids Left tennis elbow 02/08/2018 Tubular adenoma 09/01/2016 [facility]/Dr. Bijan Carrillo Varicose veins of both lower extremities 1974 Past Surgical History: Procedure Laterality Date BLADDER SUSPENSION 2005 COLONOSCOPY W/ BIOPSIES 09/01/2017 Dr Carrillo PAP TEST 02/2017 [facility]/Dr. Bijan Carrillo SCLEROTHERAPY Bilateral 2000; 2009 DR MADRIGAL/DR NGUYEN VAGINAL PROLAPSE REPAIR 2006 VEIN SURGERY Right 10/24/2000 High ligation & division greater saphenous vein-Dr. Madrigal VEIN SURGERY Bilateral 1975 bilateral stripping-[facility] VEIN SURGERY Left 2000 ligation & division greater saphenous vein-Dr Madrigal Patient's Medications New Prescriptions CEFUROXIME (CEFTIN) 500 MG TABLET Take 1 (one) tablet (500 mg total) by mouth 2 (two) times a day . Previous Medications BIOTIN, BULK, MISC CHOLECALCIFEROL, VITAMIN D3, 1,000 UNIT CAPSULE Take 1,000 Units by mouth Takes 1-2 tablets daily. COMP STOCKING, KNEE,LONG,SMALL MISC 1 Units by Miscellaneous route daily. FLUTICASONE (FLONASE) 50 MCG/ACTUATION NASAL SPRAY Instill 2 (two) sprays into each nostril daily. [id number] C-MN 500-400 MG CAP Take 1 capsule by mouth. MELOXICAM (MOBIC) 7.5 MG TABLET Take 1 (one) tablet (7.5 mg total) by mouth daily . Modified Medications No medications on file Discontinued Medications No medications on file Allergies as of 10/19/2018 - Reviewed 10/19/2018 Allergen Reaction Noted Cat dander Itching 01/14/2016 Demerol [meperidine] GI Intolerance 09/13/2017 Agrawal pham Other (See Comments) 01/14/2016 Ragweed Other (See Comments) 01/14/2016 Review of Systems Constitutional: Negative for chills and diaphoresis. HENT: Positive for congestion, postnasal drip, rhinorrhea, sinus pressure, sinus pain, sneezing andsore throat (feels raw from drainage). Negative for ear discharge, ear pain, facial swelling, hoarse voice, tinnitus and trouble swallowing. Eyes: Negative for pain, discharge, redness and itching. Respiratory: Positive for cough. Negative for apnea, chest tightness, shortness of breath and wheezing. Cardiovascular: Negative for chest pain, palpitations and leg swelling. Gastrointestinal: Negative for abdominal pain, anal bleeding, diarrhea and nausea. Genitourinary: Negative for dysuria, flank pain, frequency, hematuria and urgency. Musculoskeletal: Negative for gait problem and neck pain. Neurological: Positive for headaches. Negative for dizziness. Psychiatric/Behavioral: Negative for agitation and confusion. Objective Physical Exam Constitutional: She is oriented to person, place, and time. She appears well- developed and well-nourished. HENT: Head: Normocephalic and atraumatic. Right Ear: Hearing and tympanic membrane normal. Left Ear: Hearing and tympanic membrane normal. Nose: Right sinus exhibits maxillary sinus tenderness. Right sinus exhibits no frontal sinus tenderness. Left sinus exhibits maxillary sinus tenderness. Left sinus exhibits no frontal sinus tenderness. Mouth/Throat: Uvula is midline, oropharynx is clear and moist and mucous membranes are normal. Turbinates more swollen on left than right. Eyes: Conjunctivae and EOM are normal. Right eye exhibits no discharge. Left eye exhibits no discharge. Neck: Normal range of motion. Neck supple. Cardiovascular: Normal rate, regular rhythm and normal heart sounds. Pulmonary/Chest: Effort normal and breath sounds normal. Abdominal: Soft. Bowel sounds are normal. Musculoskeletal: Normal range of motion. Neurological: She is alert and oriented to person, place, and time. Skin: Skin is warm and dry. Psychiatric: She has a normal mood and affect. Judgment normal. Nursing note and vitals reviewed. Assessment/Plan: Acute frontal sinusitis At this time, I would like you to take the antibiotic I prescribed as discussed in the visit. Continue drinking fluids as always and plenty of handwashing and rest. Please let me know if anything changes. You agreed to treatment plan and verbalized understanding. Acute non-recurrent maxillary sinusitis At this time, I would like you to take the antibiotic I prescribed as discussed in the visit. Continue drinking fluids as always and plenty of handwashing and rest. Please let me know if anything changes. You agreed to treatment plan and verbalized understanding. Knee pain, bilateral At this time, your pain is more notable on the left than right. I have ordered an xray to evaluate this. Aleve is great for joint pain. One in the morning and one in the evening. Low impact exercise is ideal and biking is great. I will call with results, once I get them. If anything changes, pleaselet me know. Thank you! Goals None For any new medications prescribed today, patient was educated about indications for the medication, how to take the medication and potential side effects of the medications. documented in this encounter* SpringPaulette CNP - 10/30/2018 10:29 AM EDT Subjective Patient ID: Liam Navarro is a 68 y.o. female. Patient was seen here on 10/19/2018 and was diagnosed with sinusitis. She had been sick 3 weeks before she was seen, she kept thinking she was going to get better. She was prescribed 10 days of Ceftinwhich she feels worked really well, she is feeling much better. She has noticed some lingering sneezing, congestion, PND, and very slight sinus pressure above her nose. She has had issues off and on with seasonal allergies. She is not on a regular allergy medication regimen. The following portions of the patient's history were reviewed and updated as appropriate: allergies, current medications, past family history, past medical history, past social history, past surgicalhistory and problem list. Past Medical History: Diagnosis Date Colon polyp 09/01/2016 [facility]/Dr. Bijan Carrillo Small polyp 3mm Hemorrhoids 09/01/2016 [facility]/Dr. Bijan Carrillo Rectum revealed small internal hemorrhoids Left tennis elbow 02/08/2018 Tubular adenoma 09/01/2016 [facility]/Dr. Bijan Carrillo Varicose veins of both lower extremities 1974 Past Surgical History: Procedure Laterality Date BLADDER SUSPENSION 2005 COLONOSCOPY W/ BIOPSIES 09/01/2017 Dr Carrillo PAP TEST 02/2017 [facility]/Dr. Bijan Carrillo SCLEROTHERAPY Bilateral 2000; 2009 DR MADRIGAL/DR NGUYEN VAGINAL PROLAPSE REPAIR 2006 VEIN SURGERY Right 10/24/2000 High ligation & division greater saphenous vein-Dr. Madrigal VEIN SURGERY Bilateral 1975 bilateral stripping-[facility] VEIN SURGERY Left 2000 ligation & division greater saphenous vein-Dr Madrigal Family History Problem Relation Age of Onset Cancer Mother Lung cancer Mother Alzheimer's disease Father Thyroid disease Sister No Known Problems Daughter No Known Problems Son Social History Tobacco Use Smoking status: Never Smoker Smokeless tobacco: Never Used Substance Use Topics Alcohol use: Yes Frequency: 2-4 times a month Drinks per session: 1 or 2 Binge frequency: Never Comment: 5 glasses of wine a month Drug use: No Patient's Medications New Prescriptions METHYLPREDNISOLONE (MEDROL DOSEPACK) 4 MG TABLET follow package directions . Previous Medications BIOTIN, BULK, MISC CHOLECALCIFEROL, VITAMIN D3, 1,000 UNIT CAPSULE Take 1,000 Units by mouth Takes 1-2 tablets daily. COMP STOCKING, KNEE,LONG,SMALL MISC 1 Units by Miscellaneous route daily. FLUTICASONE (FLONASE) 50 MCG/ACTUATION NASAL SPRAY Instill 2 (two) sprays into each nostril daily. [id number] C-MN 500-400 MG CAP Take 1 capsule by mouth. MELOXICAM (MOBIC) 7.5 MG TABLET Take 1 (one) tablet (7.5 mg total) by mouth daily . Modified Medications No medications on file Discontinued Medications CEFUROXIME (CEFTIN) 500 MG TABLET Take 1 (one) tablet (500 mg total) by mouth 2 (two) times a day . Allergies Allergen Reactions Cat Dander Itching Demerol [Meperidine] GI Intolerance Agrawal Pham Other (See Comments) NASAL CONGESTION Ragweed Other (See Comments) NASAL CONGESTION Review of Systems Review of Systems Constitutional: Negative for activity change, appetite change, fatigue and unexpected weight change. HENT: Positive for congestion, postnasal drip, sinus pressure and sneezing. Negative for hearing loss, rhinorrhea, sinus pain and sore throat. Eyes: Negative for photophobia and visual disturbance. Respiratory: Negative for cough, chest tightness, shortness of breath and wheezing. Cardiovascular: Negative for chest pain and palpitations. Gastrointestinal: Negative for constipation, diarrhea, nausea and vomiting. Endocrine: Negative for cold intolerance and heat intolerance. Genitourinary: Negative for dysuria, frequency and urgency. Musculoskeletal: Negative for arthralgias, back pain and myalgias. Skin: Negative. Neurological: Negative for dizziness, light-headedness and headaches. Hematological: Negative. Psychiatric/Behavioral: Negative for dysphoric mood and sleep disturbance. The patient is not nervous/anxious. Vitals: 10/30/18 1012 BP: 137/77 BP Location: Left arm Patient Position: Sitting BP Cuff Size: Adult Pulse: 78 Resp: 18 Temp: 97.9 F (36.6 C) TempSrc: Oral SpO2: 98% Weight: 56.2 kg (124 lb) Height: 5' 1 Body mass index is 23.43 kg/m . Physical Exam Physical Exam Constitutional: She is oriented to person, place, and time. She appears well- developed and well-nourished. HENT: Right Ear: Tympanic membrane normal. No middle ear effusion. Left Ear: A middle ear effusion is present. Nose: Mucosal edema (pale boggy) and rhinorrhea present. Right sinus exhibits no maxillary sinus tenderness and no frontal sinus tenderness. Left sinus exhibits no maxillary sinus tenderness and no frontal sinus tenderness. Mouth/Throat: Uvula is midline and mucous membranes are normal. Posterior oropharyngeal erythema present. Cardiovascular: Normal rate, regular rhythm and normal heart sounds. Pulmonary/Chest: Effort normal and breath sounds normal. Musculoskeletal: Normal range of motion. Lymphadenopathy: Head (right side): Tonsillar adenopathy present. No submandibular adenopathy present. Head (left side): Tonsillar adenopathy present. No submandibular adenopathy present. Neurological: She is alert and oriented to person, place, and time. Skin: Skin is warm and dry. Psychiatric: She has a normal mood and affect. Her behavior is normal. Assessment/Plan Problem List Items Addressed This Visit Respiratory Allergic rhinitis - Primary You are having a flare of allergies, you are still congested. Recommend you get some OTC Nasacort and use it over the next few weeks until your symptoms improve. I am also going to give you a short course of oral steroids to help decrease inflammation caused by the sinus infection. Also recommend you use a Neti pot on a daily basis. Relevant Medications methylPREDNISolone (MEDROL DOSEPACK) 4 mg tablet No data recorded Goals Blood Pressure < 130/80 High blood pressure makes your heart work too hard. It can cause heart attack, stroke and kidney disease. HEMOGLOBIN A1C < 7.5 Blood sugar levels outside the normal range may be an indicator of diabetes. If any referrals were placed at today's visit the patient was instructed to call the office if theyhavn't heard anything about the referral within 2 weeks of today's visit. For any new medications prescribed today, patient was educated about indications for the medication, how to take the medication and potential side effects of the medications. documented in this encounter* Paulette Peters CNP - 06/13/2018 8:39 AM EST Subjective Patient ID: Liam Hu is a 67 y.o. female. Was treated for sinusitis on 04/12/2018 and took entire prescription on Ceftin, states symptoms improved but never 100% went away. In the past two weeks she has started to feel much worse. Sinusitis This is a recurrent problem. Episode onset: 2 weeks. The problem has been gradually worsening sinceonset. There has been no fever. Her pain is at a severity of 8/10. The pain is mild. Associated symptoms include congestion, ear pain (off and on ), headaches, sinus pressure, sneezing and a sore throat. Pertinent negatives include no chills, coughing, diaphoresis, hoarse voice, neck pain, shortness of breath or swollen glands. The treatment provided mild relief. The following portions of the patient's history were reviewed and updated as appropriate: allergies, current medications, past family history, past medical history, past social history, past surgicalhistory and problem list. Review of Systems Constitutional: Negative for activity change, appetite change, chills, diaphoresis, fatigue and unexpected weight change. HENT: Positive for congestion, ear pain (off and on ), postnasal drip, rhinorrhea, sinus pressure, sinus pain, sneezing and sore throat. Negative for hoarse voice. Eyes: Positive for itching. Negative for photophobia and visual disturbance. Respiratory: Negative for cough, chest tightness, shortness of breath and wheezing. Cardiovascular: Negative for chest pain and palpitations. Gastrointestinal: Negative for constipation, diarrhea, nausea and vomiting. Endocrine: Negative for cold intolerance and heat intolerance. Genitourinary: Negative for dysuria, frequency and urgency. Musculoskeletal: Negative for arthralgias, back pain, myalgias and neck pain. Skin: Negative. Neurological: Positive for headaches. Negative for dizziness and light-headedness. Hematological: Negative. Psychiatric/Behavioral: Negative for dysphoric mood and sleep disturbance. The patient is not nervous/anxious. Objective Physical Exam Constitutional: She is oriented to person, place, and time. She appears well- developed and well-nourished. HENT: Right Ear: External ear normal. A middle ear effusion is present. Left Ear: External ear normal. A middle ear effusion is present. Nose: Right sinus exhibits maxillary sinus tenderness and frontal sinus tenderness. Left sinus exhibits maxillary sinus tenderness. Left sinus exhibits no frontal sinus tenderness. Mouth/Throat: Uvula is midline and mucous membranes are normal. Posterior oropharyngeal erythema present. Eyes: Conjunctivae, EOM and lids are normal. Neck: Normal range of motion and full passive range of motion without pain. No JVD present. Carotidbruit is not present. No thyromegaly present. Cardiovascular: Normal rate, regular rhythm and normal heart sounds. No murmur heard. Pulmonary/Chest: Effort normal and breath sounds normal. Musculoskeletal: Normal range of motion. Lymphadenopathy: Head (right side): Tonsillar adenopathy present. No submandibular adenopathy present. Head (left side): Tonsillar adenopathy present. No submandibular adenopathy present. Neurological: She is alert and oriented to person, place, and time. Skin: Skin is warm and dry. Psychiatric: She has a normal mood and affect. Her speech is normal and behavior is normal. Vitals: 06/13/18 0814 BP: 131/82 BP Location: Right arm Patient Position: Sitting BP Cuff Size: Adult Pulse: 74 Resp: 18 Temp: 97.8 F (36.6 C) TempSrc: Oral SpO2: 97% Weight: 55.8 kg (123 lb) Height: 5' 1 Body mass index is 23.24 kg/m . Medication List Accurate as of 06/13/18 11:59 PM. If you have any questions, ask your nurse or doctor. START taking these medications amoxicillin-clavulanate 875-125 mg per tablet Commonly known as: AUGMENTIN Take 1 (one) tablet by mouth 2 (two) times a day for 10 days . Started by: Paulette Peters CNP CHANGE how you take these medications fluticasone 50 mcg/actuation nasal spray Commonly known as: FLONASE Instill 2 (two) sprays into each nostril daily. What changed: when to take this reasons to take this meloxicam 7.5 MG tablet Commonly known as: MOBIC Take 1 (one) tablet (7.5 mg total) by mouth daily . What changed: when to take this reasons to take this CONTINUE taking these medications BIOTIN (BULK) MISC cholecalciferol (vitamin D3) 1,000 unit capsule compr.stocking,knee,long,small Misc 1 Units by Miscellaneous route daily. bzsvhqluwrt-cbgvxwshh-tqz C-Mn 500-400 mg Cap Where to Get Your Medications These medications were sent to [id number] - [place] [id number] [address] amoxicillin-clavulanate 875-125 mg per tablet Allergies Allergen Reactions Cat Dander Itching Demerol [Meperidine] GI Intolerance Agrawal Pham Other (See Comments) NASAL CONGESTION Ragweed Other (See Comments) NASAL CONGESTION Past Medical History: Diagnosis Date Colon polyp 09/01/2016 [facility]/Dr. Bijan Carrillo Small polyp 3mm Hemorrhoids 09/01/2016 [facility]/Dr. Bijan Carrillo Rectum revealed small internal hemorrhoids Left tennis elbow 02/08/2018 Tubular adenoma 09/01/2016 [facility]/Dr. Bijan Carrillo Varicose veins of both lower extremities 1974 Past Surgical History: Procedure Laterality Date BLADDER SUSPENSION 2005 COLONOSCOPY W/ BIOPSIES 09/01/2017 Dr Carrillo PAP TEST 02/2017 [facility]/Dr. Bijan Carrillo SCLEROTHERAPY Bilateral 2000; 2009 DR MADRIGAL/DR NGUYEN VAGINAL PROLAPSE REPAIR 2006 VEIN SURGERY Right 10/24/2000 High ligation & division greater saphenous vein-Dr. Madrigal VEIN SURGERY Bilateral 1975 bilateral stripping-[facility] VEIN SURGERY Left 2000 ligation & division greater saphenous vein-Dr Madrigal Assessment/Plan: Problem List Items Addressed This Visit Respiratory Acute frontal sinusitis - Primary I am sending in a prescription for Augmentin x 10 days, take this with food. I also recommend you stop using the Flonase which has alcohol in it, this could be causing your nosebleeds. I recommend OTC Nasacort which has no alcohol in it and no odor. Follow instructions on the bottle. Also recommendyou get a Neti Pot to help with allergies and sinus symptoms. You can take a Claritin or Kirsten daily to help with drainage. Relevant Medications amoxicillin-clavulanate (AUGMENTIN) 875-125 mg per tablet Allergic rhinitis Start taking Claritin, if this does not seem to help you can take Kirsten. Also recommend Nasacort or Flonase when you are having symptoms of sinus pressure or congestion. Use as needed, use for 2 weeks with this illness. Other Visit Diagnoses Body aches Relevant Orders POC Influenza A/B, Molecular (Completed) For any new medications prescribed today, patient was educated about indications for the medication, how to take the medication and potential side effects of the medications. in this encounter Summary Purpose Family History No Family History Records FoundNo Family History Records FoundNo Family History Records FoundNo Family History Records FoundNo Family History Records FoundNo Family History Records FoundNo Family History Records FoundNo Family History Records FoundNo Family History Records FoundNo Family History Records FoundNo Family History Records Found Advance Directives No Advanced Directives Records FoundDocuments on File Type Date Recorded Patient Medical Chief Technician Expl anation Advance Directives and Living Will Documents on File Type Date Recorded Patient Medical Chief Technician Expl anation Advance Directives and Livin g Will 10/27/2020 10:53 AM Additional Source Comments Reason for Visit (unrecogniz ed section and content) Reason Comments Gynecologic Exam Sinus issues Fall Risk Screening Reason Comments Medicare Wellness Visit Fall Risk Screening Reason Comments Sinusitis > weeks used OTC dec ongestion, sinus pressure, post nasal drip Reason Comments Follow-up sinusitis Pt reports finished ATB having nasal drainage and sneezing Reason Comments Sinusitis >2 weeks difficulty sleeping drainag to throat sinus pressure [place] body aches Reason Comments Nasal Congestion Reason Comments New Pain Specialty Diagnoses / Procedures Referred By Anamaria garza Referred To Contact Orthopedics Diagnoses Chronic pain of left knee Procedures CONSULT TO ORTHOPAEDICS OFFICE/OUTPATIENT NEW HIGH MDM 60-74 MINUTES Marilyn Hair PA-C [address] [place] [address] Referral ID Status Reason Start Date Expiration Date V isits Requested Visits Authorized [id number] Closed PCP Requested Referral 08/06/2021 08/06/2022 1 1 Reason Comments Results Reason Comments Medicare Wellness Exam Reason Comments Results Reason Comments Radiology US Specialty Diagnoses / Procedures Referred By Anamaria garza Referred To Contact US IMAGING Diagnoses Elevated LFTs Procedures US ABD RT UPPER QUADRANT US ABDOMINAL REAL TIME W/IMAGE LIMITED Marilyn Hair PA-C [address] [place] [address] Us Imaging Referral ID Status Reason Start Date Expiration Date V isits Requested Visits Authorized [id number] Closed Auto-Generate d Referral 11/24/2021 12/24/2022 1 1 Reason Comments Recheck Reason Comments Patient Question Reason Comments Medication Request Reason Comments Letter Reason Onset Date Comments Population Health Navigation Outreach 04/20/2022 ACO BOB PCSA Reason Onset Date Comments cdm 05/17/2022 enrollment Reason Onset Date Comments Population Health Navigation Outreach 07/04/2022 ACO BOB PCSA Reason Comments Follow Up 6 month Reason Comments Follow Up Bp 07/18/22 Reason Onset Date Comments Population Health Navigation Outreach 08/17/2022 ACO Care Gaps Reason Comments work excuse Reason Comments Sinusitis Pressure, headache, dizziness since Monday Reason Comments Lab Orders Reason Comments Established Patient Knee Pain Reason Comments Medicare Wellness Exam Reason Comments Patient Update Reason Comments Recheck Blood pressure Reason Onset Date Comments Population Health Navigation Outreach 03/07/2023 ACO CARE GAPS Reason Comments Sore Throat Reason Onset Date Comments Opened In Error 05/09/2023 Reason Onset Date Comments Population Health Navigation Outreach 05/09/2023 ACO CARE GAPS Reason Comments GERD Pt comes in for hear t burn x 30 mins. Pt states that she was woken up approx 30 min travel pta. She states she is having a burning sensation from her neck to her chest. Pt denies any numbness or SOB Specialty Diagnoses / Procedures Referred By Anamaria garza Referred To Contact Radiology Diagnoses Encounter for screening mammogram for malignant neoplasm of breast Procedures BI mammo bilateral screening tomosynthesis BI mammo bilateral screening tomosynthesis Bhanu Meng MD [address] [place] [phone] Referral ID Status Reason Start Date Expiration Date Visits Requested Visits Authorized [id number] Authorized Perform Procedure 06/20/2023 06/19/2024 1 1 Assessment & Plan Note - SpringPaulette CNP - 04/12/2018 10:09 AM ESTAssessment & Plan Note - SpringPaulette CNP - 04/12/2018 10:07 AM EST Miscellaneous Notes (unrecog nized section and content) Associated Problem(s): Wellness examination Will do routine labs while you are here today. Eat meat, vegetables, nuts and seeds, some fruit, very little starch and absolutely no sugar. If you can grow it or kill it, then that's what you should be eating..... Chicken, turkey, fish pork, beef, ALL vegetables and fruit. If it is processed or you can not pronounce the ingredients, do not eat it! Shop the outside perimeter of the grocery store. Listen to your body, if you are hungry all the time you may need to increase your intake of healthy veggies and small healthy snacks. Eat whole, healthy foods and you won't need to count calories. Increase your activity level; the more you move your body the healthier you will be and the better you will feel! Diet and Exercise is not a fad, it really works! Associated Problem(s): Chest pain You state while you were active about one week ago you had chest pressure that radiated to your mid back. You have also developed left arm achiness x the past week, it is your entire arm and feels different than your tennis elbow. You have not had the chest or back pain since that time but your arm continues to ache. Will do a troponin and an EKG to see if there are any changes. You are active and healthy but better to be safe than sorry. Associated Problem(s): Left tennis elbow When you do repetitive motions or tasks the tendon in your arm continues to be inflamed and will not heal. You can get one of the arm bands to help with pain, must let the area rest to heal. Associated Problem(s): Acute frontal sinusitis I am sending in a prescription for Ceftin x 10 days, take this with food. I also recommend you stop using the Flonase which has alcohol in it, this could be causing your nosebleeds. I recommend OTC Nasacort which has no alcohol in it and no odor. Follow instructions on the bottle. Also recommend you get a Neti Pot to help with allergies and sinus symptoms.in this encounter Associated Problem(s): Knee pain, bilateral At this time, your pain is more notable on the left than right. I have ordered an xray to evaluate this. Aleve is great for joint pain. One in the morning and one in the evening. Low impact exercise is ideal and biking is great. I will call with results, once I get them. If anything changes, please let me know. Thank you! Associated Problem(s): Acute non-recurrent maxillary sinusitis At this time, I would like you to take the antibiotic I prescribed as discussed in the visit. Continue drinking fluids as always and plenty of handwashing and rest. Please let me know if anything changes. You agreed to treatment plan and verbalized understanding. Associated Problem(s): Acute frontal sinusitis (Resolved 10/19/2018) At this time, I would like you to take the antibiotic I prescribed as discussed in the visit. Continue drinking fluids as always and plenty of handwashing and rest. Please let me know if anything changes. You agreed to treatment plan and verbalized understanding. documented in this encounter Associated Problem(s): Allergic rhinitis You are having a flare of allergies, you are still congested. Recommend you get some OTC Nasacort and use it over the next few weeks until your symptoms improve. I am also going to give you a short course of oral steroids to help decrease inflammation caused by the sinus infection. Also recommend you use a Neti pot on a daily basis. documented in this encounter Associated Problem(s): Allergic rhinitis Start taking Claritin, if this does not seem to help you can take Kirsten. Also recommend Nasacort or Flonase when you are having symptoms of sinus pressure or congestion. Use as needed, use for 2 weeks with this illness. Associated Problem(s): Acute frontal sinusitis I am sending in a prescription for Augmentin x 10 days, take this with food. I also recommend you stop using the Flonase which has alcohol in it, this could be causing your nosebleeds. I recommend OTC Nasacort which has no alcohol in it and no odor. Follow instructions on the bottle. Also recommend you get a Neti Pot to help with allergies and sinus symptoms. You can take a Claritin or Kirsten daily to help with drainage. in this encounter INFORMATION SOURCE (unrecogn ized section and content) DATE CREATED AUTHOR AUTHOR'S ORGANIZ ATION 12/13/2018 [facility] DATE CREATED AUTHOR AUTHOR'S ORGANIZ ATION 06/11/2019 [facility] DATE CREATED AUTHOR AUTHOR'S ORGANIZ ATION 12/15/2019 [facility] DATE CREATED AUTHOR AUTHOR'S ORGANIZ ATION 11/02/2020 [facility] DATE CREATED AUTHOR AUTHOR'S ORGANIZ ATION 01/01/2021 R[facility] Short [facility] DATE CREATED AUTHOR AUTHOR'S ORGANIZ ATION 05/31/2021 [employer] DATE CREATED AUTHOR AUTHOR'S ORGANIZ ATION 01/21/2023 [facility] DATE CREATED AUTHOR AUTHOR'S ORGANIZ ATION 06/08/2023 [facility] DATE CREATED AUTHOR AUTHOR'S ORGANIZ ATION 06/24/2023 [facility] DATE CREATED AUTHOR AUTHOR'S ORGANIZ ATION 06/26/2023 [facility] <item><item><item> Privacy Markings (unrecogniz ed section and content) Section Author: Zoë Nicholas PROHIBITION ON REDISCLOSURE OF CONFIDENTIAL INFORMATION This notice accompanies a disclosure of information concerning a client made to you with the consent of such client. Section Author: Zoë Nicholas PROHIBITION ON REDISCLOSURE OF CONFIDENTIAL INFORMATION This notice accompanies a disclosure of information concerning a client made to you with the consent of such client. Section Author: Zoë Nicholas PROHIBITION ON REDISCLOSURE OF CONFIDENTIAL INFORMATION This notice accompanies a disclosure of information concerning a client made to you with the consent of such client. Source Comments (unrecognize d section and content) In the event this informatio n is protected by the Federal Confidentiality of Alcohol and Drug Abuse Patient Records regulations: The Federal rules restrict any use of the information to criminally investigate or prosecute any alcohol or drug abuse patient.[facility] the event this information is protected by the Federal Confidentiality of Alcohol and Drug Abuse Patient Records regulations: The Federal rules restrict any use of the information to criminally investigate or prosecute any alcohol or drug abuse patient.[facility] the event this information is protected by the Federal Confidentiality of Alcohol and Drug Abuse Patient Records regulations: The Federal rules restrict any use of the information to criminally investigate or prosecute any alcohol or drug abuse patient.[facility] the event this information is protected by the Federal Confidentiality of Alcohol and Drug Abuse Patient Records regulations: The Federal rules restrict any use of the information to criminally investigate or prosecute any alcohol or drug abuse patient.[facility] the event this information is protected by the Federal Confidentiality of Alcohol and Drug Abuse Patient Records regulations: The Federal rules restrict any use of the information to criminally investigate or prosecute any alcohol or drug abuse patient.[facility] the event this information is protected by the Federal Confidentiality of Alcohol and Drug Abuse Patient Records regulations: The Federal rules restrict any use of the information to criminally investigate or prosecute any alcohol or drug abuse patient.[facility] the event this information is protected by the Federal Confidentiality of Alcohol and Drug Abuse Patient Records regulations: The Federal rules restrict any use of the information to criminally investigate or prosecute any alcohol or drug abuse patient.[facility] the event this information is protected by the Federal Confidentiality of Alcohol and Drug Abuse Patient Records regulations: The Federal rules restrict any use of the information to criminally investigate or prosecute any alcohol or drug abuse patient.[facility] the event this information is protected by the Federal Confidentiality of Alcohol and Drug Abuse Patient Records regulations: The Federal rules restrict any use of the information to criminally investigate or prosecute any alcohol or drug abuse patient.[facility] the event this information is protected by the Federal Confidentiality of Alcohol and Drug Abuse Patient Records regulations: The Federal rules restrict any use of the information to criminally investigate or prosecute any alcohol or drug abuse patient.[facility] the event this information is protected by the Federal Confidentiality of Alcohol and Drug Abuse Patient Records regulations: The Federal rules restrict any use of the information to criminally investigate or prosecute any alcohol or drug abuse patient.[facility] the event this information is protected by the Federal Confidentiality of Alcohol and Drug Abuse Patient Records regulations: The Federal rules restrict any use of the information to criminally investigate or prosecute any alcohol or drug abuse patient.[facility] Hospital[facility] the event this information is protected by the Federal Confidentiality of Alcohol and Drug Abuse Patient Records regulations: The Federal rules restrict any use of the information to criminally investigate or prosecute any alcohol or drug abuse patient.[facility] the event this information is protected by the Federal Confidentiality of Alcohol and Drug Abuse Patient Records regulations: The Federal rules restrict any use of the information to criminally investigate or prosecute any alcohol or drug abuse patient.[facility] the event this information is protected by the Federal Confidentiality of Alcohol and Drug Abuse Patient Records regulations: The Federal rules restrict any use of the information to criminally investigate or prosecute any alcohol or drug abuse patient.[facility] HospitalIn the event this information is protected by the Federal Confidentiality of Alcohol and Drug Abuse Patient Records regulations: The Federal rules restrict any use of the information to criminally investigate or prosecute any alcohol or drug abuse patient.[facility] Hospital[facility] the event this information is protected by the Federal Confidentiality of Alcohol and Drug Abuse Patient Records regulations: The Federal rules restrict any use of the information to criminally investigate or prosecute any alcohol or drug abuse patient.[facility] Hospital[facility] the event this information is protected by the Federal Confidentiality of Alcohol and Drug Abuse Patient Records regulations: The Federal rules restrict any use of the information to criminally investigate or prosecute any alcohol or drug abuse patient.[facility] HospitalIn the event this information is protected by the Federal Confidentiality of Alcohol and Drug Abuse Patient Records regulations: The Federal rules restrict any use of the information to criminally investigate or prosecute any alcohol or drug abuse patient.[facility] HospitalIn the event this information is protected by the Federal Confidentiality of Alcohol and Drug Abuse Patient Records regulations: The Federal rules restrict any use of the information to criminally investigate or prosecute any alcohol or drug abuse patient.[facility] HospitalIn the event this information is protected by the Federal Confidentiality of Alcohol and Drug Abuse Patient Records regulations: The Federal rules restrict any use of the information to criminally investigate or prosecute any alcohol or drug abuse patient.[facility] HospitalIn the event this information is protected by the Federal Confidentiality of Alcohol and Drug Abuse Patient Records regulations: The Federal rules restrict any use of the information to criminally investigate or prosecute any alcohol or drug abuse patient.[facility] HospitalIn the event this information is protected by the Federal Confidentiality of Alcohol and Drug Abuse Patient Records regulations: The Federal rules restrict any use of the information to criminally investigate or prosecute any alcohol or drug abuse patient.[facility] HospitalIn the event this information is protected by the Federal Confidentiality of Alcohol and Drug Abuse Patient Records regulations: The Federal rules restrict any use of the information to criminally investigate or prosecute any alcohol or drug abuse patient.[facility] the event this information is protected by the Federal Confidentiality of Alcohol and Drug Abuse Patient Records regulations: The Federal rules restrict any use of the information to criminally investigate or prosecute any alcohol or drug abuse patient.[facility] the event this information is protected by the Federal Confidentiality of Alcohol and Drug Abuse Patient Records regulations: The Federal rules restrict any use of the information to criminally investigate or prosecute any alcohol or drug abuse patient.[facility]In the event this information is protected by the Federal Confidentiality of Alcohol and Drug Abuse Patient Records regulations: The Federal rules restrict any use of the information to criminally investigate or prosecute any alcohol or drug abuse patient.[facility] HospitalIn the event this information is protected by the Federal Confidentiality of Alcohol and Drug Abuse Patient Records regulations: The Federal rules restrict any use of the information to criminally investigate or prosecute any alcohol or drug abuse patient.[facility] HospitalIn the event this information is protected by the Federal Confidentiality of Alcohol and Drug Abuse Patient Records regulations: The Federal rules restrict any use of the information to criminally investigate or prosecute any alcohol or drug abuse patient.[facility] HospitalIn the event this information is protected by the Federal Confidentiality of Alcohol and Drug Abuse Patient Records regulations: The Federal rules restrict any use of the information to criminally investigate or prosecute any alcohol or drug abuse patient.[facility] HospitalIn the event this information is protected by the Federal Confidentiality of Alcohol and Drug Abuse Patient Records regulations: The Federal rules restrict any use of the information to criminally investigate or prosecute any alcohol or drug abuse patient.[facility] HospitalIn the event this information is protected by the Federal Confidentiality of Alcohol and Drug Abuse Patient Records regulations: The Federal rules restrict any use of the information to criminally investigate or prosecute any alcohol or drug abuse patient.[facility] Care Teams (unrecognized sec tion and content) Assembler Dc Field Ring Relationship Specialty Start Date End Date Bhanu Meng MD [address] [place] [address] PCP - General Family Practice 07/08/15 Assembler Dc Field Ring Relationship Specialty Start Date End Date Bhanu Meng MD [facility] [place] [address] PCP - General Family Practice 07/08/15 Assembler Dc Field Ring Relationship Specialty Start Date End Date Bhanu Meng MD [facility] [place] [address] PCP - General Family Practice 07/08/15 Assembler Dc Field Ring Relationship Specialty Start Date End Date Bhanu Meng MD [facility] [place] [address] PCP - General Family Practice 07/08/15 Assembler Dc Field Ring Relationship Specialty Start Date End Date Bhanu Meng MD [address] [place] [id number] PCP - General Family Practice 07/08/15 Assembler Dc Field Ring Relationship Specialty Start Date End Date Bhanu Meng MD [address] [place] [address] PCP - General Family Practice 07/08/15 Assembler Dc Field Ring Relationship Specialty Start Date End Date Bhanu Meng MD [address] [place] [address] PCP - General Family Practice 07/08/15 Assembler Dc Field Ring Relationship Specialty Start Date End Date Bhanu Meng MD [facility] [place] [address] PCP - General Family Practice 07/08/15 Assembler Dc Field Ring Relationship Specialty Start Date End Date Bhanu Meng MD [facility] [place] [address] PCP - General Family Practice 07/08/15 Assembler Dc Field Ring Relationship Specialty Start Date End Date Bhanu Meng MD [facility] [place] [address] PCP - General Family Practice 07/08/15 Assembler Dc Field Ring Relationship Specialty Start Date End Date Bhanu Meng MD [facility] [place] [address] PCP - General Family Medicine 07/08/15 Assembler Dc Field Ring Relationship Specialty Start Date End Date Bhanu Meng MD [facility] [place] [address] PCP - General Family Medicine 07/08/15 Assembler Dc Field Ring Relationship Specialty Start Date End Date Bhanu Meng MD [facility] [place] [address] PCP - General Family Medicine 07/08/15 Assembler Dc Field Ring Relationship Specialty Start Date End Date Bhanu Meng MD [facility] [place] [address] PCP - General Family Medicine 07/08/15 Assembler Dc Field Ring Relationship Specialty Start Date End Date Bhanu Meng MD [address] [place] [address] PCP - General Family Medicine 07/08/15 Assembler Dc Field Ring Relationship Specialty Start Date End Date Bhanu Meng MD [address] [place] [address] PCP - General Family Medicine 07/08/15 Assembler Dc Field Ring Relationship Specialty Start Date End Date Bhanu Meng MD [address] [place] [address] PCP - General Family Medicine 07/08/15 Assembler Dc Field Ring Relationship Specialty Start Date End Date Bhanu Meng MD [address] [place] [address] PCP - General Family Medicine 07/08/15 Assembler Dc Field Ring Relationship Specialty Start Date End Date Bhanu Meng MD [address] [place] [address] PCP - General Family Medicine 07/08/15 Assembler Dc Field Ring Relationship Specialty Start Date End Date Bhanu Meng MD [address] [place] [address] PCP - General Family Medicine 07/08/15 Assembler Dc Field Ring Relationship Specialty Start Date End Date Bhanu Megn MD [address] [place] [address] PCP - General Family Medicine 07/08/15 Assembler Dc Field Ring Relationship Specialty Start Date End Date Bhanu Meng MD [address] [place] [address] PCP - General Family Medicine 07/08/15 Assembler Dc Field Ring Relationship Specialty Start Date End Date Bhanu Meng MD [address] [place] [address] PCP - General Family Medicine 07/08/15 Assembler Dc Field Ring Relationship Specialty Start Date End Date Bhanu Meng MD [address] [place] [address] PCP - General Family Medicine 07/08/15 Assembler Dc Field Ring Relationship Specialty Start Date End Date Bhanu Meng MD [address] [place] [address] PCP - General Family Medicine 07/08/15 Assembler Dc Field Ring Relationship Specialty Start Date End Date Bhanu Meng MD [address] [place] [address] PCP - General Family Medicine 07/08/15 Assembler Dc Field Ring Relationship Specialty Start Date End Date Bhanu Meng MD [address] [place] [phone] PCP - General 11/15/20 Assembler Dc Field Ring Relationship Specialty Start Date End Date Bhanu Meng MD [address] [place], [place] [address] PCP - General Family Medicine 07/08/15 Assembler Dc Field Ring Relationship Specialty Start Date End Date Bhanu Meng MD [address] [place] [phone] PCP - General 11/15/20 Assembler Dc Field Ring Relationship Specialty Start Date End Date Bhanu Meng MD [address] [place] [phone] PCP - General 11/15/20 Assembler Dc Field Ring Relationship Specialty Start Date End Date Bhanu Meng MD [address] [place] [phone] PCP - General 11/15/20 Scheduled Active and Recently Administ ered Medications (unrecognized section and content) Scheduled Medication Order 05/19/2023 05/20/2023 05/21/2023 pantoprazole (ProtoNix) EC tablet 40 mg 40 mg, oral, Daily before breakfast, First dose (after last modification) on 05/21/23 at 0400, Do not crush, chew, or split. 0406 (Given - Provid er: Loli Montana RN)0700 (Due) FOR RECORDS PERTAINING TO PATIENTS WHO ARE OR HAVE BEEN ENROLLED IN A CHEMICAL DEPENDENCY/SUBSTANCEABUSE PROGRAM, SOME INFORMATION MAY BE OMITTED. This clinical summary was aggregated from multiple sources. Caution should be exercised in using it in the provision of clinical care. This summary normalizes information from multiple sources, and as a consequence, information in this document may materially change the coding, format and clinical context of patient data. In addition, data may be omitted in some cases. CLINICAL DECISIONS SHOULD BE BASED ON THE PRIMARY CLINICAL RECORDS. [employer] provides no warranty or guarantee of the accuracy or completeness of information in this document.
== END | disposition home or self-care (01) ==
LOC: OPBI 09:16
PROVIDERS: PCP Family Medicine; Visit Provider Nurse Practitioner Family
DX: R92.8 Other abnormal and inconclusive findings on diagnostic imaging of breast (principal)
CPT/HCPCS: 76642

== ENCOUNTER → 2025-03-20 | Outpatient (CLI) | payer MEDICARE, OTHER, SELFPAY ==
--- NOTE | 2025-03-20 07:41 | MRI_ITS ---
PROCEDURE: PELVIS W/WO CONTRAST 03/20/2025 REASON FOR EXAM: MESH COMPLICATIONS, RECTOCELE, STRUCTURAL DEFECTS TECHNIQUE: Procedure Code: [id number] Modality: MR Procedure: PELVIS W/WO CONTRAST Multiplanar and multisequence images were obtained. CONTRAST: Clariscan VOLUME: 11 mL COMPARISON: None FINDINGS: Uterus: Orientation: Anteverted Endometrium: Less than 5 mm Fibroids: Myometrial fibroids with the largest at the right body is 2.0 x 1.5 x 1.2 cm. Smaller fibroids in the myometrium are seen of the body of the uterus anteriorly and one posteriorly. Right Ovary: Partially imaged. No adnexal mass. Left Ovary: Partially imaged. No adnexal mass. Bladder: Bladder is unremarkable. However, the bladder neck is partially below the pubococcygeal line, PCL. There appears to have been a bladder sling performed. The sling is seen wrapping between the vagina and the bladder. However, the sling is not directed anteriorly towards the pubis. Instead, they are directed laterally. The extreme margins of the sling (distal attachments) are not imaged. No surgical change is seen at the sacral promontory. Cul-de-sac: No fluid or mass. MRI/Pelvis W/WO Contrast IMPRESSION: Bladder cystocele. No bladder wall thickening or distention. See above descri ption. Uterine fibroids. Reading Location: [id number]
--- OUTSIDE RECORDS SUMMARY | 2025-03-20 07:45 | XMS RPT_ITS | CCD ---
Author Organization [facility] Team Providers Care Financial Reporting Consultant Name Role Phone Unavailable Unavailable Unavailable Fortino Chakraborty Unavailable Spring, Luigi M Unavailable Unavailable Spring, Luigi M Unavailable Unavailable Spring, Luigi M Unavailable Unavailable Spring, Luigi M Unavailable Unavailable Fortino Chakraborty Primary Care Provider Spring, Luigi Fischer Primary Care Provider SPRING, LUIGI Fischer Attending Unavailable FORTINO CHAKRABORTY Primary Care Unavailable FORTINO CHAKRABORTY Primary Care Unavailable TYLER NO Attending Unavailable August Attending Unavailable FORTINO CHAKRABORTY Primary Care Unavailable BASILIO PITTS Attending Unavailabl e SPRING, LUIGI M. Primary Care Unavailable SPRING, LUIGI MRenetta Attending Unavailable SPRING LUIGI MRenetta Primary Care Unavailable BASILIO PITTS Admitting Unavailabl e ZAPBASILIO JENSEN Referring Unavailabl e NITHYA, LUIGI M. Primary Care Unavailable FORTINO CHAKRABORTY Admitting Unavailable FORTINO CHAKRABORTY Referring Unavailable FORTINO CHAKRABORTY Primary Care Unavailable FORTINO CHAKRABORTY Attending Unavailable FORTINO CHAKRABORTY Primary Care Unavailable Fortino Chakraborty Primary Care Provider Bhanu Meng MD Primary Care Provider [phone] DENNYS BANEGAS Attending Unavailab BHANU Matos Primary Care Unavailable Bhanu Meng Unavailable Jaqueline Ly Unavailable Unavailable Bhanu Meng Unavailable Chris Duran Unavailable Unavailable Marilyn Hair Unavailable [phone] Bhanu Meng MD Primary Care Provider [phone] Bhanu Meng MD Primary Care Provider Bhanu Meng MD Primary Care Provider Lidya Adair Unavailable Unavailable Jessie ELAM, Bhanu A Primary Care Provider [phone] Bijan Carrillo Admitting Unavailable Bijan Carrillo Attending Unavailable Jessie, Dr. Bhanu Crespo [facility] Care Huyen Meng, Dr. Bhanu Crespo Referring Huyen Carroll, Ms. Daniela Dorantes Attending Unavailable Jessie, Dr. Bhanu Crespo [facility] Huyen Meng, Dr. Bhanu Crespo Primary Care Huyen Adair, Dr. Lidya Nicole Attending Unavaila shauna Meng MD, [facility] Provider BHANU MENG Primary [facility] Unavailable Jessie ELAM, [facility] Primary [facility] Provider Jessie ELAM, Bhanu Primary Care Provider [phone] Jessie ELAM, Bhanu Colin Primary Care Provider BHANU MENG [facility] UnavailCHRIS Pineda Attending Unavailable CHRIS DURAN Referring Unavailable [facility] Unavailabl e JESSIE [facility] Referring Unavailabl e [facility] VIDAL Chakraborty Attending Unavailable ROSALINDA BARAJAS ALAN Referring Unavailable JESSIE [facility] Unavailabl e FOSTER, ROSALINDA ROLAND Referring Unavailable [facility] FOSTER, ROSALINDA ROLAND Referring Unavailable [facility] Unav[facility] e FOSTER, ROSALINDA ROLAND Referring Unavailable [facility] Unavail[facility] e FOSTER, ROSALINDA ROLAND Referring Unavailable [facility] Unavail[facility] e FOSTER, ROSALINDA ROLAND Referring Unavailable [facility] Unav[facility] e FOSTER, ROSALINDA ROLAND Referring Unavailable [facility] Unavail[facility] e FOSTER, ROSALINDA ROLAND Referring Unavailable [facility] Unavail[facility] e FOSTER, ROSALINDA ROLAND Referring Unavailable [facility] Unavail[facility] e FOSTER, ROSALINDA ROLAND Referring Unavailable [facility] Unavail[facility] e FOSTER, ROSALINDA ROLAND Referring Unavailable [facility] Unavail[facility] e FOSTER, ROSALINDA ROLAND Referring Unavailable JESSIE, BHANU CRESPO Primary Care Unavailvineet e ROSALINDA BARAJAS Referring Unavailable JESSIE, BHANU CHERIE Primary Care Unavailabl e JESSIE, BHANU CHERIE Primary Care Unavailabl e RAVIN OSUNA Attending Unavailable [employer] BAG BUILDER.DIVER HELPER, Rafaela Unavailable Reginaldo GREGORY, Marilyn Unavailable Fortnio Chakraborty MD Primary Care Provider [phone] Ron BAG BUILDER.DIVER HELPER, Rafaela Unavailable Reginaldo GREGORY, Marilyn Unavailable MARILYN HAIR Referring Unavailable JESSIE, BHANU A Primary Care Unavailable JESSIE, BHANU A Attending Unavailable JESSIE, BHANU A Primary Care Unavailable JESSIE, BHANU A Referring Unavailable JESSIE, BHANU A Primary Care Unavailable JESSIE, BHANU A Referring Unavailable JESSIE, BHANU A Primary Care Unavailable MARILYN HAIR Attending Unavailable JESSIE, BHANU A Primary Care Unavailable RAFAELA WASHINGTON Attending Unavailable JESSIE, BHANU A Primary Care Unavailable CARLENE SALEEM Attending Unavailable JESSIE, BHANU A Primary Care Unavailable KNOBLE, RAFAELA Referring Unavailable JESSIE, BHANU A Primary Care Unavailable FANTA, VIDAL Referring Unavailable FANTA, VIDAL Attending Unavailable JESSIE, BHANU A Primary Care Unavailable FANTA, VIDAL Attending Unavailable FANTA, VIDAL Referring Unavailable JESSIE, BHANU A Primary Care Unavailable FANTA, VIDAL Attending Unavailable FANTA, VIDAL Referring Unavailable JESSIE, BHANU A Primary Care Unavailable SELF, SELF Referring Unavailable ROSALINDA BARAJAS Attending Unavailable JESSIE, BHANU A Primary Care Unavailable ROSALINDA BARAJAS Attending Unavailable ROSALINDA BARAJAS Referring Unavailable JESSIE, BHANU A Primary Care Unavailable FANTA, VIDAL Attending Unavailable FANTA, VIDAL Referring Unavailable JESSIE, BHANU A Primary Care Unavailable Dr. Bhanu Meng MD Primary Care Physician [phone] [employer]-CCarlene Attending Physician [employer]-CCarlene Referring Provider Dr. Bhanu Meng MD Referring Provider Dr. Rosalio Solomon DO Attending Physician Rosalio Solomon Attending Unavailable Bhanu Meng Referring Unavailable Bhanu Meng Primary Care Unavailable Bhanu Meng Primary Care Unavailable Friend, Rosalio Referring Unavailable FriendRosalio Attending Unavailable Carlene Saleem Referring Unavailable Carlene Saleem Attending Unavailable Bhanu Meng Primary Care Unavailable Allergies Allergy Classification Reported Allergen(s) Allergy Type Date of Onset Reaction(s) Facility Opioid Agonists (2 sources) Meperidine; Translations: [MEPERIDINE] Drug Allergy 8 GI Intolerance [facility] Work Phone: (15 sources) cat dander extract; Translations: [CAT DANDER] Propensity to adverse reactions to drug 6 Itching [facility] Work Phone: (15 sources) AGRAWAL GUS; Translations: [AGRAWAL GUS] Propensity to adverse reactions to drug 6 Other (See Comments) [facility] Work Phone: (15 sources) RAGWEED; Translations: [RAGWEED] Propensity to adverse reactions to drug 6 Other (See Comments) [facility] Work Phone: (20 sources) meperidine; Translations: [Unknown] Drug Allergy 8 GI Intolerance [facility] (10 sources) PENTobarbital Drug Allergy 4 [facility] Medications Current Medications Medication Drug Class(es) Dates Sig (Normalized) Sig (Original) acetaminophen 325 mg oral tablet (10 sources) Start: 01-17-2024 End: 01-17-2024 take 2 tablets by mouth every four hours as needed Acetaminophen 325 MG tablet Take 2 tablets by mouth every 4 hours as needed for Mild Pain. Do not exceed 4000mg of Tylenol in 24 hour period. 50 tablet 1 01/17/2024 Active Start: 01-17-2024 End: 01-17-2024 take 1 tablet by mouth every six hours 1,000 mg, Oral, EVERY 6 HOURS NON-STANDARD, First dose on Mon01/17/24 at 1200, Until Discontinued, Maximum dose of acetaminophen is 4000 mg from all sources in 24 hours., Post-op/Post-Proc Start: 01-17-2024 take 1 dose by mouth every hour 1,000 mg, Oral, ONCE DIRECTED, 1 dose, Starting on Mon01/17/24 at 0532, Until Mon01/17/24 at 0558, See admin instructions, Administer 1 hour preop., Pre-op/Pre-Proc acetaminophen 325 mg / HYDROcodone bitartrate 5 mg oral tablet (4 sources) Opioid Agonist Start: 01-26-2024 take 1 tablet by mouth once daily as needed hydroCODone-acetaminophen 5-325 MG tablet Indications: Acute postoperative pain of left knee Take 1-2 tablets by mouth every 6 hours as needed for up to 7 days. Do not take over 4000mg acetaminophen daily. 30 tablet 01/26/2024 Active amoxicillin 500 mg oral capsule (6 sources) Penicillin-class Antibacterial Start: 02-08-2024 End: 02-07-2025 Amoxicillin 500 MG capsule Take 4 capsules 1 hour before procedure 8 capsule 1 02/08/2024 02/07/2025 Active amoxicillin 875 mg / clavulanate 125 mg oral tablet (6 sources) Penicillin-class Antibacterial Start: 10-27-2020 End: 11-10-2020 take 1 tablet by mouth twice daily amoxicillin-clavulanate (AUGMENTIN) 875-125 mg per tablet Take 1 (one) tablet by mouth 2 (two) times a day for 14 days . 28 tablet 0 10/27/2020 11/10/2020 Active Start: 06-13-2018 End: 06-23-2018 take 1 tablet by mouth twice daily amoxicillin-clavulanate (AUGMENTIN) 875-125 mg per tablet Indications: Acute non-recurrent frontal sinusitis Take 1 (one) tablet by mouth 2 (two) times a day for 10 days . 20 tablet 0 06/13/2018 06/23/2018 Active Start: 02-21-2017 End: 03-03-2025 take 1 tablet by mouth every twelve hours Amoxicillin-Pot Clavulanate 875 MG table t Discontinued 875 mg PO Q12H 20 0 February 21, 2017 12:00am March 03, 2025 7:58am aspirin 81 mg delayed release oral tablet (9 sources) Platelet Aggregation Inhibitor, Nonsteroidal Anti-inflammatory Drug Start: 01-18-2024 End: 01-17-2024 take 81 mg by mouth every twelve hours in the morning 81 mg, Oral, EVERY 12 HOURS, First dose on Sandra 01/18/24 at 0900, Until Discontinued, Start in AM day after surgery, Post-op/Post-Proc Start: 01-17-2024 End: 02-16-2024 take 1 tablet by mouth twice daily Aspirin [address] tablet Take 1 tablet by mouth 2 times daily. This medication is for blood clot prevention. Take with food. 60 tablet 01/17/2024 Active azithromycin 250 mg oral tablet (5 sources) Macrolide Antimicrobial Start: 03-08-2021 Zithromax Z-Rico 250 mg oral tablet ; as directed Quantity: 1 Refills: 0 Ordered: 08-Mar-2021 Chris Duran Start: 08-Mar-2021 Status: Other Generic Substitution Allowed Comments: Do not take dairy products, antacids, or iron preparations within one hour of this medication.Finish all this medication unless otherwise directed by prescriber. Start: 12-22-2016 End: 02-27-2017 azithromycin (ZITHROMAX) 250 MG tablet Indications: Acute non-recurrent maxillary sinusitis Take 2 day 1 and 1 day 2-5. 6 tablet 12/22/2016 02/27/2017 Discontinued Start: 12-22-2016 End: 02-27-2017 azithromycin (ZITHROMAX) 250 MG tablet Indications: Acute non-recurrent maxillary sinusitis Take 2 day 1 and 1 day 2-5. 6 tablet 0 12/22/2016 02/27/2017 Discontinued Comment on above: Do not take dairy pr oducts, antacids, or iron preparations within one hour of this medication.Finish all this medication unless otherwise directed by prescriber. cefadroxil 500 mg oral capsule (15 sources) Cephalosporin Antibacterial Start: 12-05-19 End: 12-12-19 take 1 capsule by mouth twice daily cefADROxil (DURICEF) 500 mg capsule Take 1 capsule by mouth two times a day for 7 days. 14 capsule 0 12/05/2023 12/12/2023 Active Start: 10-22-2021 End: 07-18-2022 take 1 capsule by mouth twice daily cefADROxil (DURICEF) 500 mg capsule Take 1 capsule by mouth twice daily. 20 capsule 0 11/23/2021 07/18/2022 Discontinued Comment on above: Take 1 capsule by [facility] twice daily. celecoxib 200 mg oral capsule (20 sources) Nonsteroidal Anti-inflammatory Drug Start: 01-17-2024 take 1 dose by mouth every two hours 200 mg, Oral, ONCE DIRECTED, 1 dose, Starting on Mon01/17/24 at 0532, Until Mon01/17/24 at 0558, See admin instructions, Administer 2 hours preop., Pre-op/Pre-Proc Start: 11-06-2023 End: 02-28-2024 take 1 capsule by mouth twice daily at mealtime Celecoxib 200 MG capsule Take 1 capsule by mouth 2 times daily. Take with food. 84 capsule 01/17/2024 Active Start: 10-05-2023 End: 12-13-2024 take 1 capsule by mouth once daily celecoxib (CELEBREX) 200 mg capsule Take 1 capsule by mouth once daily. 60 capsule 1 11/06/2023 12/13/2024 Discontinued cephalexin 500 mg oral capsule (2 sources) Cephalosporin Antibacterial Start: 01-17-2024 End: 01-18-2024 take 1 capsule by mouth every six hours cephALEXin 500 MG capsule Take 1 capsule by mouth every 6 hours for 3 doses. Start 6 hours after last dose of IV antibiotics. 3 capsule 01/17/2024 01/18/2024 Active cholecalciferol 0.05 mg oral capsule (20 sources) Vitamin D Start: 02-21-2017 End: 01-25-2018 take 1 capsule by mouth once daily Cholecalciferol (Vitamin D3) (Vitamin D3) 2,000 UNIT capsule Active 2000 U PO DAILY February 21, 2017 12:00am Complies with drug therapy Start: 05-06-2015 End: 01-17-2024 take 2 capsules by mouth once daily Cholecalciferol, Vitamin D3, 1,000 unit cap Take 2,000 Units by mouth once daily. 0 05/06/2015 Active Start: 05-06-2015 take 1-2 tablets by mouth once daily cholecalciferol, vitamin D3, 1,000 unit capsule Take 1,000 Units by mouth Takes 1-2 tablets daily. 05/06/2015 Active Start: 05-06-2015 cholecalcifero l, vitamin D3, 1,000 unit capsule Take 1,000 Units by mouth Takes 1-2 tablets daily. 05/06/2015 Active Cholecalciferol (D3 VITAMIN PO) Take by mouth. Active take 1 mL by mouth once daily Vi tamin D3 10 mcg/mL (400 intl units/mL) oral liquid ; 1 milliliter(s) orally once a day Quantity: 0 Refills: 0 Ordered: 07-Mar-2022 Lory Tripathi Generic Substitution Allowed Comment on above: Take 2,000 Units by mouth once daily. chondroitin sulfates 400 mg / glucosamine hydrochloride 500 mg oral capsule (4 sources) Start: 05-06-2015 glucosamine-chondroit -vit C-Mn 500-400 mg cap Take 1 capsule by mouth. 05/06/2015 Active Start: 05-06-2015 End: 11-23-2021 take 1 capsule by mouth three times daily Elofgrujidz-Iazdwqwuo-Zwu C-Mn (GLUCOSAMINE CHONDROITIN MAXSTR) 500-400 mg cap Take 1 capsule by mouth three times daily. 0 05/06/2015 11/23/2021 Discontinued Comment on above: Take 1 capsule by mo ut three times daily. comp stocking, knee,long,small Misc (8 sources) Start: comp stocking, knee,long,small Misc Indications: Varicosities of leg 1 Units by Miscellaneous route daily. 2 each 3 01/01/2016 Active Compression Stocking,Knee High,Long Length,Small Circum (6 sources) Start: comp stocking, knee,long,small Misc Indications: Varicosities of leg 1 Units by Miscellaneous route daily. 2 each 3 01/01/2016 Active 12 hr dextromethorphan hydrobromide 30 mg / guaiFENesin 600 mg extended release oral tablet (1 source) Uncompetitive A-vanchg-B-aspartate Receptor Antagonist, Sigma-1 Agonist Start: End: take 1 tablet by mouth every twelve hours dextromethorphan-gua ifenesin (Mucinex DM) 30-600 mg 12 hr tablet Indications: Viral URI Take 1 tablet by mouth every 12 hours for 10 days. Do not crush, chew, or split. 20 tablet 05/15/2024 05/25/2024 Active docusate sodium 100 mg oral capsule (9 sources) Start: End: take 1 capsule by mouth twice daily Docusate 100 MG capsule Take 1 capsule by mouth 2 times daily. Hold for loose stools. 60 capsule 01/17/2024 Active doxycycline hyclate 100 mg oral tablet (1 source) Tetracycline-class Drug Start: End: take 1 tablet by mouth twice daily doxycycline hyclate 100 mg oral tablet ; 1 tab(s) orally 2 times a day Quantity: 28 Refills: 0 Ordered: 07-Mar-2022 Lidya Adair Start: 07-Mar-2022 End: 20-Mar-2022 Generic Substitution Allowed Comments: Avoid prolonged or excessive exposure to direct and/or artificial sunlight while taking this medication.Do not take this drug if you are .Finish all this medication unless otherwise directed by prescriber.Medicatio n should be taken with plenty of water. Comment on above: Avoid prolonged or e xcessive exposure to direct and/or artificial sunlight while taking this medication.Do not take this drug if you are .Finish all this medication unless otherwise directed by prescriber.Medication should be taken with plenty of water. glucosamine (7 sources) Start: glucosamine-chondroi t-vit C-Mn 500-400 mg cap Take 1 capsule by mouth. 05/06/2015 Active fvganwomclo-ojiajrhnr-dx t C-Mn 500-400 mg cap (6 sources) Start: glucosamine-chondroi t-vit C-Mn 500-400 mg cap Take 1 capsule by mouth. 0 05/06/2015 Active lisinopril 5 mg oral tablet (20 sources) Angiotensin Converting Enzyme Inhibitor Start: 024 End: 025 take 1 tablet by mouth once daily lisinopril (ZESTRIL) 5 mg tablet Indications: Hypertension, essential Take 1 tablet by mouth once daily. 90 tablet 08/29/2024 12/13/2024 Discontinued Start: 06-23-2023 End: 07-17-2024 take 1 tablet by mouth once daily lisinopril (ZESTRIL) 10 mg tablet Indications: Hypertension, essential Take 1 tablet by mouth once daily. 30 tablet 5 02/26/2024 07/17/2024 Discontinued (Discontinued by Patient) Start: 08-12-2022 End: 01-20-2023 take 1 tablet by mouth once daily lisinopril (ZESTRIL) 10 mg tablet Take 1 tablet by mouth once daily. 30 tablet 5 01/20/2023 Active Start: 12-23-2021 End: 08-12-2022 take 1 tablet by mouth once daily lisinopril (ZESTRIL, PRINIVIL) 5 mg tablet Take 1 tablet by mouth once daily. 30 tablet 5 07/18/2022 08/12/2022 Discontinued Comment on above: Take 1 tablet by rashad th once daily. meloxicam 15 mg oral tablet (11 sources) Nonsteroidal Anti-inflammatory Drug Start: 3 End: 4 take 1 tablet by mouth once daily meloxicam (MOBIC) 15 mg tablet Indications: Primary osteoarthritis of left knee Take 1 tablet by mouth once daily. 90 tablet 2 12/21/2022 09/17/2023 Active Start: 02-08-2018 End: 04-12-2019 take 1 tablet by mouth once daily meloxicam (MOBIC) 7.5 MG tablet Indications: Left tennis elbow Take 1 (one) tablet (7.5 mg total) by mouth daily . 30 tablet 11 04/12/2018 04/12/2019 Active Comment on above: Take 1 tablet by rashad th once daily. methylPREDNISolone (2 sources) Corticosteroid Start: 10-27-2020 methylPREDNISolone (MEDROL DOSEPACK) 4 mg tablet follow package directions . 21 tablet 0 10/27/2020 Active Start: 10-30-2018 End: 11-06-2018 methylPREDNISolone (MEDROL D OSEPACK) 4 mg tablet Indications: Seasonal allergic rhinitis, unspecified trigger follow package directions . 21 tablet 0 10/30/2018 11/06/2018 Active naloxone hydrochloride 40 mg/ml nasal spray (5 sources) Opioid Antagonist Start: 01-17-2024 End: 01-17-2024 naloxone 4 MG/0.1ML 1 spray by Nasal route once for 1 dose. Blair into the nose as directed. Call 911. If no response in 2 minutes use a new nasal spray in other nostril. Repeat until help arrives. 1 Each 01/17/2024 Active naproxen 500 mg oral tablet (1 source) Nonsteroidal Anti-inflammatory Drug Start: 08-29-2021 take 1 tablet by mouth every twelve hours as needed Naprosyn 500 mg oral tablet ; 1 tab(s) orally every 12 hours as needed for pain Quantity: 15 Refills: 1 Ordered: 29-Aug-2021 Bryon Sales Start: 29-Aug-2021 Status: Other Generic Substitution Allowed Comments: Check with your doctor before becoming .May cause drowsiness or dizziness.Obtain medical advice before taking any non-prescription drugs as some may affect the action of this medication.Take with food or milk. Comment on above: Check with your doct or before becoming .May cause drowsiness or dizziness.Obtain medical advice before taking any non-prescription drugs as some may affect the action of this medication.Take with food or milk. nitrofurantoin, macrocrystals 25 mg / nitrofurantoin, monohydrate 75 mg oral capsule (1 source) Nitrofuran Antibacterial Start: 01-25-2018 End: 01-30-2018 take 1 capsule by mouth twice daily nitrofurantoin, macrocrystal-monoh ydrate, (MACROBID) 100 MG capsule Indications: Dysuria Take 1 (one) capsule (100 mg total) by mouth 2 (two) times a day for 5 days. 10 capsule 0 01/25/2018 01/30/2018 Active omeprazole 40 mg delayed release oral capsule (12 sources) Proton Pump Inhibitor Start: 07-17-2024 End: 12-13-2024 take 1 capsule by mouth once daily omeprazole (PRILOSEC) 40 mg capsule Take 1 capsule by mouth once daily. 30 capsule 3 07/17/2024 12/13/2024 Discontinued Start: 01-17-2024 End: 01-17-2024 take 1 capsule by mouth once daily omeprazole [address] capsule Take 1 capsule by mouth daily. 30 capsule 01/17/2024 Active ondansetron 4 mg oral tablet (9 sources) Serotonin-3 Receptor Antagonist Start: 01-17-2024 End: 01-17-2024 take 1 tablet by mouth every eight hours as needed Ondansetron 4 MG tablet Take 1 tablet by mouth every 8 hours as needed for Nausea / Vomiting. 6 tablet 01/17/2024 Active Start: 01-17-2024 End: 01-17-2024 take 4 mg intravenously every four hours as needed 4 mg, Intravenous, EVERY 4 HOURS NEEDED, Starting on Mon01/17/24 at 0931, Until Mon01/17/24 at 1707, Nausea / Vomiting, Post-op/Post-Proc oxyCODONE hydrochloride 5 mg oral tablet (7 sources) Opioid Agonist Start: 01-17-2024 End: 01-24-2024 oxyCODONE 5 MG tablet Indications: Acute postoperative pain of left knee Take 1-2 tabs every 4-6 hours as needed for severe pain. Wean as tolerated 30 tablet 01/17/2024 Active Start: 01-17-2024 End: 01-17-2024 take 5-10 mg by mouth every four hours as needed 5-10 mg, Oral, EVERY 4 HOURS NEEDED, Starting on Mon01/17/24 at 0931, Until Mon01/17/24 at 1707, moderate-severe pain, If pain unrelieved with oxycodone, contact pharmacist to enter order for Oxycodone ER 10mg PO Q12H for 3 days, Post-op/Post-Proc pantoprazole 20 mg delayed release oral tablet (6 sources) Proton Pump Inhibitor Start: 05-21-2023 End: 06-10-2023 take 1 tablet by mouth once daily pantoprazole (ProtoNix) 20 mg EC tablet Indications: Gastroesophageal reflux disease with esophagitis without hemorrhage Take 1 tablet (20 mg) by mouth once daily for 20 days. Do not crush, chew, or split. 20 tablet 05/21/2023 Active Start: 05-21-2023 pantoprazole ( ProtoNix) EC tablet 40 mg 12 hr pseudoephedrine hydrochloride 120 mg extended release oral tablet (1 source) alpha-Adrenergic Agonist Start: 03-07-2022 End: 03-13-2022 take 1 tablet by mouth twice daily Maximum Strength Non-Drowsy Decongestant 120 mg oral tablet, extended release ; 1 tab(s) orally 2 times a day Quantity: 14 Refills: 0 Ordered: 07-Mar-2022 Lidya Adair Start: 07-Mar-2022 End: 13-Mar-2022 Generic Substitution Allowed Comments: Swallow whole. Do not crush. Comment on above: Swallow whole. Do no t crush. therapeutic multivitamin-mineral s tablet (8 sources) Start: 01-17-2024 take 1 tablet by mouth at bedtime therapeutic multivitamin-mine rals tablet Take 1 tablet by mouth at bedtime. 30 tablet 01/17/2024 Active Start: 01-17-2024 End: 01-17-2024 take 1 tablet by mouth at bedtime therapeutic multivitamin-minerals tablet Take 1 tablet by mouth at bedtime. 30 tablet 01/17/2024 01/17/2024 Discontinued vitamin b12 1 mg oral tablet (19 sources) Vitamin B12 End: 12-13-2024 take 1 tablet by mouth once daily cyanocobalamin (VITAMIN B-12) 1,000 mcg tab Take 1,000 mcg by mouth once daily. 12/13/2024 Discontinued Comment on above: Take 1,000 mcg by mouth once daily. Completed/Discontinued Medications Medication Drug Class(es) Dates Sig (Normalized) Sig (Original) benzonatate 200 mg oral capsule (7 sources) Non-narcotic Antitussive Start: 08-23-2022 End: 01-20-2023 take 1 capsule by mouth every eight hours as needed Benzonatate 200 mg capsule Take 1 capsule by mouth three times daily as needed. 20 capsule 0 08/23/2022 01/20/2023 Discontinued Comment on above: Take 1 capsule by [facility] three times daily as needed. biotin 1 mg chewable tablet (2 sources) Start: 02-21-2017 End: 03-03-2025 take 1 tablet by mouth once daily Biotin 1,000 MCG tablet,chewable Discontinued 1000 ug PO DAILY February 21, 2017 12:00am March 03, 2025 7:58am BIOTIN, BULK, MISC (20 sources) End: 08-23-2022 BIOTIN, BULK, MISC 08/23/2022 Discontinued BIOTIN, BULK, CO SC bisacodyl 10 mg rectal suppository (1 source) Stimulant Laxative Start: 01-17-2024 End: 01-17-2024 take 10 mg rectal route once daily as needed for constipation 10 mg, Rectal, DAILY NEEDED, Starting on Mon01/17/24 at 0931, Until Mon01/17/24 at 1707, constipation, Post-op/Post-Proc calcium chloride 0.0014 meq/ml / potassium chloride 0.004 meq/ml / sodium chloride 0.103 meq/ml / sodium lactate 0.028 meq/ml injectable solution (1 source) Start: 01-17-2024 End: 01-17-2024 Intravenous, at 75 mL/hr, CONTINUOUS, Starting on Mon01/17/24 at 0545, Until Mon01/17/24 at 1707, Pre-op/Pre-Proc ceFAZolin 2000 mg injection (1 source) Cephalosporin Antibacterial Start: 01-17-2024 End: 01-17-2024 take 2 g intravenously every eight hours 2 g, Intravenous, Administer over 30 Minutes, EVERY 8 HOURS NON-STANDARD, 3 doses, First dose on Mon01/17/24 at 1530, Last dose on Mon01/18/24 at 0730, Post-op/Post-Proc cefTRIAXone 1000 mg injection (1 source) Cephalosporin Antibacterial Start: 04-22-2023 End: 04-22-2023 cefTRIAXone (Rocephin) IVPB 1 g cefuroxime 500 mg oral tablet (4 sources) Cephalosporin Antibacterial Start: 10-19-2018 End: 10-30-2018 take 1 tablet by mouth twice daily cefUROXime (CEFTIN) 500 MG tablet Indications: Acute non-recurrent maxillary sinusitis Take 1 (one) tablet (500 mg total) by mouth 2 (two) times a day . 20 tablet 0 10/19/2018 10/30/2018 Discontinued (Therapy completed) Start: 04-12-2018 End: 04-22-2018 take 1 tablet by mouth twice daily cefUROXime (CEFTIN) 500 MG tablet Indications: Acute non-recurrent frontal sinusitis Take 1 (one) tablet (500 mg total) by mouth 2 (two) times a day for 10 days . 20 tablet 0 04/12/2018 04/22/2018 Active chondroitin sulfates 400 mg / glucosamine hydrochloride 500 mg / methylsulfonylmethane 83 mg oral tablet (2 sources) Start: 02-21-2017 End: 03-03-2025 take 1 tablet by mouth once daily Glucosamine Yvy-Oel-Jfdfbksbkc 1 EACH tablet Discontinued 1 NMA PO DAILY February 21, 2017 12:00am March 03, 2025 7:58am Start: 02-21-2017 Glucosamine Hc o-Rwu-Kqmcmkisxg Active 1 EACH PO DAILY February 20, 2017 11:00pm dexamethasone phosphate 10 mg/ml injectable solution (2 sources) Corticosteroid Start: 01-17-2024 End: 01-17-2024 10 mg, Intravenous, ONCE DIRECTED, 1 dose, Starting on Mon01/17/24 at 1400, Until Mon01/17/24 at 1400, Nausea / Vomiting, Give dose #2 30 minutes prior to discharge. (dose #1 given pre-operatively by anesthesia), Post-op/Post-Proc Start: 10-12-2023 End: 10-12-2023 take 12 mg by mouth once 12 mg, oral, Once, On Sandra at 2125, For 1 dose diclofenac sodium 75 mg delayed release oral tablet (20 sources) Nonsteroidal Anti-inflammatory Drug Start: 02-23-2023 End: 10-05-2023 take 1 tablet by mouth twice daily for pain diclofenac, EC, (VOLTAREN) 75 mg EC tablet Take 1 tablet by mouth twice daily. For pain/inflammation. Take with food. 60 tablet 5 02/23/2023 10/05/2023 Discontinued (Discontinued by Patient) Start: 09-05-2022 End: 12-21-2022 take 1 tablet by mouth twice daily for pain diclofenac, EC, (VOLTAREN) 75 mg EC tablet Take 1 tablet by mouth twice daily. For pain/inflammation. Take with food. 60 tablet 5 09/05/2022 12/21/2022 Discontinued Start: 08-06-2021 take 1 tablet by rashad twice daily for pain diclofenac, EC, (VOLTAREN) 75 mg EC tablet Take 1 tablet by mouth twice daily. For pain/inflammation. Take with food. 60 tablet 5 08/06/2021 Active Comment on above: Take 1 tablet by rashad twice daily. For pain/inflammation. Take with food. docusate sodium 50 mg / sennosides, snf 8.6 mg oral tablet (1 source) Start: 2023 End: 2023 take 2 tablets by mouth twice daily as needed for constipation 2 tablet, Oral, 2 TIMES DAILY NEEDED, Starting on Mon01/17/24 at 0931, Until Mon01/17/24 at 1707, constipation, Post-op/Post-Proc fexofenadine hydrochloride 180 mg oral tablet (4 sources) Histamine-1 Receptor Antagonist Start: 2016 End: 2017 take 1 tablet by mouth once daily fexofenadine (TYRELL) 180 MG tablet Indications: Seasonal allergic rhinitis, unspecified allergic rhinitis trigger Take 1 (one) tablet (180 mg total) by mouth daily. 30 tablet 11 02/27/2017 01/25/2018 Discontinued (Therapy completed) 12 hr fexofenadine hydrochloride 60 mg / pseudoephedrine hydrochloride 120 mg extended release oral tablet (1 source) alpha-Adrenergic Agonist, Histamine-1 Receptor Antagonist Start: 2021 End: 2021 take 1 tablet by mouth twice daily after mealtime Fexofenadine HCl-Pseudoephedri ne 12 Hour 60 mg-120 mg oral tablet, extended release ; 1 tab(s) orally 2 times a day Quantity: 10 Refills: 0 Ordered: 29-Aug-2021 Bryon Sales Start: 29-Aug-2021 End: 02-Sep-2021 Status: Other Generic Substitution Allowed Comments: Obtain medical advice before taking any non-prescription drugs as some may affect the action of this medication.Swallo w whole. Do not crush.Take medication on an empty stomach 1 hour before or 2 to 3 hours after a meal unless otherwise directed by your doctor. Comment on above: Obtain medical advic e before taking any non-prescription drugs as some may affect the action of this medication.Swallow whole. Do not crush.Take medication on an empty stomach 1 hour before or 2 to 3 hours after a meal unless otherwise directed by your doctor. fluticasone propionate 0.05 mg/actuat metered dose nasal spray (20 sources) Corticosteroid Start: 2020 End: 2022 take 2 spray(s) by mouth once daily fluticasone (FLONASE) 50 mcg/actuation nasal spray Use 2 Sprays in each nostril once daily. Rinse mouth after use. 1 Bottle 1 11/17/2020 01/20/2023 Discontinued Start: 02-27-2017 End: 03-02-2019 take 2 spray(s) nasal route once daily fluticasone (FLONASE) 50 mcg/actuation nasal spray Indications: Seasonal allergic rhinitis, unspecified allergic rhinitis trigger Instill 2 (two) sprays into each nostril daily. 16 g 12 02/27/2017 07/19/2017 Discontinued (Reorder (Suppress CancelRx Message to Pharmacy)) Comment on above: Use 2 Sprays in each nostril once daily. Rinse mouth after use. Glucosamine-Chondroi t-Vit C-Mn (GLUCOSAMINE CHONDROITIN MAXSTR) 500-400 mg cap (3 sources) Start: 015 take 1 capsule by mouth three times daily Glucosamine-Chond roit-Vit C-Mn (GLUCOSAMINE CHONDROITIN MAXSTR) 500-400 mg cap Take 1 capsule by mouth three times daily. 0 05/06/2015 Active Comment on above: Take 1 capsule by [facility] [place] three times daily. 1 ml HYDROmorphone hydrochloride 1 mg/ml cartridge (1 source) Opioid Agonist Start: End: take 0.5 mg intravenously every four hours as needed 0.5 mg, Intravenous, EVERY 4 HOURS NEEDED, Starting on Mon01/17/24 at 0931, Until Mon01/17/24 at 1707, Severe Pain, Post-op/Post-Proc 1 ml ketorolac tromethamine 30 mg/ml cartridge (4 sources) Nonsteroidal Anti-inflammatory Drug, Cyclooxygenase Inhibitor Start: End: 7.5 mg, Intravenous, EVERY 6 HOURS, 12 doses, First dose on Mon01/17/24 at 1200, Last dose on Mon01/20/24 at 0600, Post-op/Post-Proc Start: 04-22-2023 End: 10-05-2023 take 1 tablet by mouth every six hours for pain ketorolac (Toradol) 10 mg tablet Indications: Acute pharyngitis, unspecified etiology Take 1 tablet (10 mg) by mouth every 6 hours if needed for moderate pain (4 - 6) for up to 5 days. 20 tablet 0 04/22/2023 04/27/2023 Active Start: 04-22-2023 End: 04-22-2023 ketorolac (Toradol) injectio n 15 mg meclizine hydrochloride 25 mg oral tablet (8 sources) Antiemetic Start: 11-16-2020 End: 11-23-2021 take 1 tablet by mouth three times daily meclizine 25 mg oral tablet ; 1 tab(s) orally 3 times a day Quantity: 60 Refills: 0 Ordered: 16-Nov-2020 Jaqueline Ly Start: 16-Nov-2020 End: 05-Dec-2020 Status: Other Generic Substitution Allowed Comments: May cause drowsiness. Alcohol may intensify this effect. Use care when operating dangerous machinery. Comment on above: May cause drowsiness . Alcohol may intensify this effect. Use care when operating dangerous machinery. Take 25 mg by mouth three times daily. predniSONE 10 mg oral tablet (3 sources) Corticosteroid Start: 12-22-2016 End: 02-27-2017 predniSONE (DELTASONE) 10 MG tablet Indications: Acute non-recurrent maxillary sinusitis Take 1 (one) tablet (10 mg total) by mouth daily Take 3 for 5 days, 2 for 5 days and 1 for 5 days with food.. 30 tablet 12/22/2016 02/27/2017 Discontinued prochlorperazine 5 mg/ml injectable solution (1 source) Phenothiazine Start: 01-17-2024 End: 01-17-2024 take 10 mg intravenously every six hours as needed 10 mg, Intravenous, EVERY 6 HOURS NEEDED, 1 dose, Starting on Mon01/17/24 at 1036, Until Mon01/17/24 at 1043, Nausea / Vomiting, For IV route: dilute dose with 10mL normal saline and give by slow IV push at a rate of 5mg/min. Maximum of 40mg/day. ROPivacaine HCl-NaCl 0.2-0.9 % On-Q pump (1 source) Start: 01-17-2024 End: 01-17-2024 Surgical Site, CONTINUOUS, Starting on Mon01/17/24 at 0915, Until Mon01/17/24 at 1707, Recovery to Continue 1000 ml sodium chloride 9 mg/ml injection (1 source) Start: 01-17-2024 End: 01-17-2024 take 1 mL intravenously every hour as needed Intravenous, at 100 mL/hr, CONTINUOUS, Starting on Mon01/17/24 at 0945, Until Mon01/17/24 at 1707, Convert IV to PRN adapter if adequate oral intake, Post-op/Post-Pr oc sodium phosphate, dibasic 35.5 mg/ml / sodium phosphate, monobasic 96.4 mg/ml enema (1 source) Start: 01-17-2024 End: 01-17-2024 1 enema, Rectal, DAILY NEEDED, Starting on Mon01/17/24 at 0931, Until Mon01/17/24 at 1707, Refractory Constipation, use per package instructions, Post-op/Post-Pr oc total joint mixture (no clonidine) premade bag 1 Bag (1 source) Start: 01-17-2024 End: 01-17-2024 total joint mixture (no clonidine) premade bag 1 Bag tranexamic acid 650 mg oral tablet (1 source) Antifibrinolytic Agent Start: 01-17-2024 End: 01-17-2024 take 1 dose by mouth every two hours 1,950 mg, Oral, ONCE DIRECTED, 1 dose, Starting on Mon01/17/24 at 0532, Until Mon01/17/24 at 0558, See admin instructions, Administer 2 hours preop, Pre-op/Pre-Proc Vitamin D3 CAPS (10 sources) Vitamin D3 CAPS Quantity: 0 Refills: 0 Ordered: 04-Feb-2020 DO Active zolpidem tartrate 5 mg oral tablet (1 source) gamma-Aminobutyric Acid-ergic Agonist Start: 01-17-2024 End: 01-17-2024 take 5 mg by mouth once daily at bedtime as needed for sleep 5 mg, Oral, DAILY AT BEDTIME NEEDED, Starting on Mon01/17/24 at 0931, Until Mon01/17/24 at 1707, Sleep, Post-op/Post-Pr oc Problems Active Problems Problem Classification Problem Date Documented Da te Episodic/Chronic Abdominal pain (10 sources) Right lower quadrant pain; Translations: [Abdominal pain, right lower quadrant] Episodic Cancer of cervix (2 sources) Atypical squamous cells of undetermined significance on cervical Papanicolaou smear; Translations: [Atypical squamous cells of undetermined significance on cytologic smear of cervix (ASC-US)] 07-20-2023 Episodic Conditions associated with dizziness or vertigo (2 sources) Benign paroxysmal positional vertigo; Translations: [Benign paroxysmal positional vertigo] 11-16-2020 Episodic Disorders of lipid metabolism (20 sources) Dyslipidemia; Translations: [Hyperlipidemia, unspecified] Onset: 01-10-2024 Chronic Diverticulosis and diverticulitis (1 source) Diverticulosis of large intestine without perforation or abscess without bleeding; Translations: [Dvrtclos of lg int w/o perforation or abscess w/o bleeding] Onset: 01-17-2023 Chronic Esophageal disorders (3 sources) Gastro-esophageal reflux disease with esophagitis; Translations: [Gastroesophageal reflux disease with esophagitis without hemorrhage] Onset: 07-17-2024 05-21-2023 Chronic Esophageal disorders (2 sources) Esophageal disorders; Translations: [Gastro-esophageal reflux disease with esophagitis, without bleeding] Onset: 05-21-2023 Essential hypertension (20 sources) Hypertensive disorder; Translations: [Unspecified essential hypertension] Onset: 01-16-2022 11-16-2020 Chronic Headache; including migraine (1 source) Headache; including migraine; Translations: [Headache, unspecified] Onset: 03-07-2022 Hemorrhoids (11 sources) Internal hemorrhoids; Translations: [Internal hemorrhoids without mention of complication] 03-03-2025 Episodic Nonmalignant breast conditions (2 sources) Fibrocystic disease of breast; Translations: [Diffuse cystic mastopathy of left breast] 02-27-2017 Chronic Nonmalignant breast conditions (2 sources) Breast lump; Translations: [Unspecified lump in unspecified breast] 06-29-2023 Episodic Osteoarthritis (20 sources) Bilateral arthritis of knees; [...] [Disorder of bone and cartilage] Chronic Other connective tissue disease (1 source) History of right total knee replacement; Translations: [Presence of right artificial knee joint] 02-06-2024 Chronic Other connective tissue disease (3 sources) History of left total knee replacement; Translations: [Presence of left artificial knee joint] Onset: 02-12-2024 02-12-2024 Chronic Other connective tissue disease (4 sources) Presence of left artificial knee joint; Translations: [Presence of left artificial knee joint] Onset: 02-12-2024 Chronic Other connective tissue disease (2 sources) Presence of right artificial knee joint; Translations: [Presence of right artificial knee joint] Onset: 02-08-2024 Chronic Other connective tissue disease (2 sources) Female pelvic floor dysfunction; Translations: [Other specified disorders of muscle] 03-03-2025 Episodic Other connective tissue disease (1 source) Other specified disorders of muscle; Translations: [Other specified disorders of muscle] Onset: 03-18-2025 Episodic Other female genital disorders (1 source) Cervical intraepithelial neoplasia grade 2; Translations: [Moderate cervical dysplasia] 10-31-2023 Episodic Other gastrointestinal disorders (10 sources) Incontinence of feces; Translations: [Full incontinence of feces] Episodic Other injuries and conditions due to external causes (2 sources) At risk for falls ; Translations: [History of falling] 02-27-2017 Episodic Other injuries and conditions due to external causes (1 source) At low risk for fall; Translations: [At low risk for fall] Episodic Other liver diseases (1 source) Enzyme level - finding; Translations: [Abnormal levels of other serum enzymes] Episodic Other nervous system disorders (1 source) Other acute postprocedural pain; Translations: [Pain in joint, lower leg] 01-17-2024 Episodic Other non-traumatic joint disorders (2 sources) Pain in right knee; Translations: [Pain in joint, lower leg] 12-13-2022 Episodic Other screening for suspected conditions (not mental disorders or infectious disease) (20 sources) Breast neoplasm screening status; Translations: [Patient encounter status] Onset: 10-25-2016 10-25-2016 Episodic Other skin disorders (2 sources) Cyst of scalp; Translations: [Follicular cyst of the skin and subcutaneous tissue, unspecified] 08-29-2024 Episodic Other upper respiratory disease (14 sources) Allergic rhinitis; Translations: [Allergic rhinitis, unspecified] Onset: 02-27-2017 02-27-2017 Chronic Other upper respiratory disease (4 sources) Seasonal allergic rhinitis; Translations: [Other seasonal allergic rhinitis] 02-27-2017 Chronic Other upper respiratory disease (2 sources) Allergic rhinitis, unspecified; Translations: [Allergic rhinitis, unspecified] Onset: 10-12-2023 Chronic Other upper respiratory disease (2 sources) Pain in throat 03-08-2021 Episodic Comment on above: SORE THROAT Other upper respiratory infections (1 source) Bacterial sinusitis; Translations: [Chronic sinusitis, unspecified] 12-05-2023 Chronic Prolapse of female genital organs (3 sources) Uterovaginal prolapse; Translations: [Uterovaginal prolapse, unspecified] Onset: 12-13-2024 12-13-2024 Chronic Residual codes; unclassified (2 sources) Postmenopausal state; Translations: [Asymptomatic menopausal state] 02-27-2017 Episodic Residual codes; unclassified (2 sources) Menopause present; Translations: [Asymptomatic menopausal state] 07-17-2024 Episodic Residual codes; unclassified (2 sources) Active living will ; Translations: [Other specified health status] Onset: 01-20-2025 01-20-2025 Episodic Screening and history of mental health and substance abuse codes (2 sources) Encounter for screening examination for other mental health and behavioral disorders; Translations: [Encounter for screening for depression] Onset: 01-20-2025 Episodic Unclassified (3 sources) Left tennis elbow; Translations: [Left tennis elbow] Onset: 02-08-2018 02-08-2018 Unclassified (2 sources) DIZZY 11-16-2020 Comment on above: DIZZY Unclassified (4 sources) LT KNEE PAIN 02-22-2021 Comment on above: LT KNEE PAIN Unclassified (1 source) Pharyngitis, acute 03-08-2021 Unclassified (2 sources) SINUS ISSUES 03-07-2022 Comment on above: SINUS ISSUES Unclassified (1 source) Sinusitis, acute 03-07-2022 Unclassified (1 source) Cough, unspecified; Translations: [Cough, unspecified] Onset: 08-21-2022 Past or Other Problems Problem Classification Problem [...] [Dysuria] Onset: 01-25-2018 Resolved: 06-13-2018 01-25-2018 Episodic Immunizations and screening for infectious disease (20 sources) Patient encounter status; Translations: [Encounter for screening for human papillomavirus (HPV)] Onset: 07-25-2023 07-10-2023 Episodic Nonspecific chest pain (9 sources) Chest pain; Translations: [Chest pain, unspecified] Onset: 04-12-2018 Resolved: 06-13-2018 04-12-2018 Episodic Nutritional deficiencies (20 sources) Serum vitamin B12 low; Translations: [Deficiency of other specified B group vitamins] Onset: 07-25-2023 07-25-2023 Episodic Other aftercare (1 source) Other terminal supervisor (current) drug therapy; Translations: [Medication management] Onset: 07-25-2023 Episodic Other circulatory disease (20 sources) Spider nevus; Translations: [Nevus, non-neoplastic] Onset: [...] [Otalgia, unspecified ear] Onset: 03-07-2022 Episodic Other nervous system disorders (20 sources) Paresthesia; Translations: [Paresthesia of skin] Onset: 07-25-2023 07-25-2023 Episodic Other nervous system disorders (1 source) Abnormal gait; Translations: [Unspecified abnormalities of gait and mobility] Onset: 02-12-2024 02-12-2024 Episodic Other nervous system disorders (2 sources) Unspecified abnormalities of gait and mobility; Translations: [Unspecified abnormalities of gait and mobility] Onset: 02-12-2024 Episodic Other nervous system disorders (1 source) Paresthesia of skin; Translations: [Paresthesia] Onset: 07-25-2023 Episodic Other non-traumatic joint disorders (9 sources) Knee pain; Translations: [Pain in right knee] Onset: 02-08-2018 02-08-2018 Episodic Other non-traumatic joint disorders (20 sources) Pain in left knee; Translations: [Chronic pain of left knee] Onset: 05-06-2015 Episodic Other non-traumatic joint disorders (20 sources) Hip pain; Translations: [Pain in left hip] Onset: 10-25-2016 10-25-2016 Episodic Other skin disorders (1 source) Follicular cyst of the skin and subcutaneous tissue, unspecified; Translations: [Scalp cyst] Onset: 08-29-2024 Episodic Other upper respiratory infections (20 sources) Acute sinusitis; Translations: [Acute frontal sinusitis] Onset: 12-22-2016 Resolved: 10-19-2018 12-22-2016 Episodic Residual codes; unclassified (1 source) Generalized aches and pains; Translations: [Body aches] Episodic Residual codes; unclassified (20 sources) FH: Thyroid disorder; Translations: [Family history of other endocrine, nutritional and metabolic diseases] Onset: 10-25-2016 10-25-2016 Episodic Residual codes; unclassified (1 source) Family history of other endocrine, nutritional and metabolic diseases; Translations: [Family history of thyroid disease] Onset: 10-25-2016 Episodic Residual codes; unclassified (1 source) Asymptomatic menopausal state; Translations: [Asymptomatic menopause] Onset: 07-17-2024 Episodic Unclassified (20 sources) Patient encounter status; Translations: [Wellness examination] Onset: 02-27-2017 Resolved: 06-13-2018 02-27-2017 Unclassified (1 source) Onset: 02-12-2024 02-12-2024 Unclassified (3 sources) History of left total knee replacement 09-18-2024 Varicose veins of lower extremity (20 sources) Varicose veins of lower extremity; Translations: [Asymptomatic varicose veins of unspecified lower extremity] Onset: 05-06-2015 01-01-2016 Episodic Results Test Name Value Interpretation Reference Range Facility Gastroenterology Visit Repor ton 03-03-2025 Gastroenterology Visit Report [facility] [address] [place] [address] OFFICE VISIT Date of Service: 03/03/25 MR#: [id number] Acct: [id number] Name: LIAM SMITH Rep #: [id number] : 1950 Provider: Rosalio Solomon DO Age/Sex: 74/F Location: [facility] [place] Status: Signed Intake Vital Signs 02/21/17 18:58 Height 5 ft 1 in Intake Visit Reasons: Hemorrhoids Allergies No Known Allergies Allergy (Verified 02/21/17 18:58) Have you fallen in the past year?: No PFSH Social History Smoking Status: Never smoker HPI HPI Details: LIAM KING, is a 74-year-old female presents for evaluation of recent-onset fecal incontinence and an external hemorrhoid. The patient describes episodes of involuntary leakage of stool, despite undergoing pelvic floor therapy. The patient reports a history of bladder prolapse, which was surgically corrected with a bladder mesh lift in 2007. The patient has had three vaginal births. She is currently undergoing pelvic floor therapy, but states her symptoms have not improved sufficiently. She denies fever, chills, or weight loss. She also reports of abdominal pain, nausea, vomiting, or rectal bleeding. No significant change in bowel habits reported (frequency, consistency) apart from the incontinence. She has a history of bladder prolapse and resolved urinary incontinence post- surgery in 2007. No current reports of urinary incontinence or dysuria. Patient reports pelvic floor muscle weakness. No anxiety or depression reported, though the patient expresses significant embarrassment and frustration over the symptoms. ROS Const Constitutional: No fatigue, fever(s) or weight change ENT ENT: No difficulty swallowing Gastro GI: No abdominal pain, belching, bloating, change in bowel habits, change in stool character, coffee ground emesis, constipation, cramping, diarrhea, heartburn, difficulty swallowing, feeling full early, excessive flatus, incontinent of stools, Vomiting blood/hematemesis, Blood in stool, loose stools, Black,tarry stools, nausea/dyspepsia, pain with swallowing, vomiting or other Musc Musculoskeletal: Positive for Arthritis; No joint pain Skin Skin: No yellowing of the eye or itchy eyes Psych Psychiatric: No anxiety and No depression Endo Endocrine: No fatigue or weight change Aller/Imm Allergy/Immunologic: No itchy eyes Juan/Lymp Hematologic/Lymphatic: No easy bleeding or easy bruising Exam Const General: cooperative, healthy appearing and comfortable Nutritional Appearance: well nourished Orientation: oriented x3 Eyes Sclera: sclerae normal Resp Effort Inspection: normal respiratory effort Auscultation: Bilateral: Clear to Auscultation Cardio Rate: regular rate Rhythm: regular rhythm GI Inspection: normal to inspection Auscultation: normal bowel sounds Percussion: normal to percussion Palpation: no hepatosplenomegaly Other: Normal sphincter tone without any signs of fecal impaction. She does have very small external hemorrhoid. There is no tenderness, fissure or any masses palpated. Assessment and Plan Assessment and Plan (1) Hemorrhoids: (2) Pelvic floor dysfunction in female: Status: Acute Plan: Assessment: * Mild fecal Incontinence:???New onset, despite ongoing pelvic floor therapy. * History of Bladder Prolapse:???Status post bladder mesh lift (2007). * Pelvic Floor Dysfunction:???Symptoms persist despite conservative treatment, suggesting potential structural or functional issues. Differential Diagnosis: * Mesh-related complication:???Erosion , retraction, or fibrosis of the bladder mesh could be affecting the posterior pelvic floor, leading to fecal incontinence. * Damage to anal sphincter or pudendal nerve:???Prior vaginal births are a major risk factor for this, and the effects can appear many years later. Pelvic surgery could also cause nerve or muscle injury. * Recurrent or occult posterior prolapse (rectocele):???While her bladder prolapse was repaired, posterior compartment prolapse may have occurred or worsened, affecting bowel function. * Rectovaginal fistula:???This is a possibility with prior pelvic mesh surgery, though it is less common. * Other GI pathology:???Conditions such as Irritable Bowel Syndrome (IBS) or Inflammatory Bowel Disease (IBD) can cause fecal incontinence and need to be considered. * Neurological factors:???Underlying conditions like diabetes, stroke, or degenerative neurological disorders can cause or contribute to incontinence. * Failure of Pelvic Floor Therapy (PFT):???Although PFT is typically effective, a lack of improvement suggests other underlying issues may be present, or that the exercises are being performed incorrectly. Plan * Acknowledged and Validated Patient Concern: She is not frustrated at all as (more content not included)... Normal [facility] 25(OH)D3 SerPl-mCncon 2024 25-hydroxyvitamin D3 [Mass/Vol] 49.9 ng/mL Normal 31.0-80.0 [facility] Comment on above: Order Comment: Speci men Type: BLOOD SPECIMENOrdering Facility: [facility] Address: [address] [place] [address] Performed By: #### 1 989-3 ####[facility] [id number] [place] [id number] [place] 25-hydroxyvitamin D3 [Mass/V ol]on 01-20-2025 Interpretation and review of laboratory results Normal [facility] CNOVon 01-20-2025 CNOV Office Visit (FAMPWS ) LIAM SMITH ([id number]) 1950 F Date Time Provider Department 01/20/25 10:20 AM [facility] your visit today, we recorded the following information about you: Pulse Respiration Blood pressure Weight 74/minute 16/minute 158/88 57.3 kg Height 1.518 m Bhanu Meng MD 01/20/2025 4:41 PM Signed Liam Aguilar Mark Ramirezchina is a 74 year old female here for a Medicare wellness visit. Medicare Health Risk Assessment General Health Very good Exercise: Minutes/Day 30 min Exercise: Days/Week 6 days Alcohol: Daily Use Never Alcohol: Drinks/Day Patient does not drink Alcohol: 6 or more drinks Never Feel off balance No Concerns: Teeth/Dentures No Concerns: Sexual function No Troubled by feelings None of the above Frequency: Eating healthy diet Nearly every day ADLs requiring help None of the above Safety precautions in home/vehicle No (Rugs in home, no grab bars in bathroom. Following all other safety precautions) Smoke, vape, chews tobacco No Difficulty hearing No Difficulty seeing No Current Providers Specialists: I have reviewed specialist-related care of the patient in the medical record. Medical/Family history review Reviewed and updated problem list, medical/surgical/family /social history, medications, and allergies. Opioid use review Opioid Medications (last 90 days) No data to display Anxiety/Depression screening PHQ-2 Score: 0 (Lower risk for depression) DOMENIC-2 Score: 0 (Lower risk for anxiety) Recommendation: no further intervention at this time Cognitive screening Mini Cog Score: 5 Cognitive screening reviewed and No further action needed (score 3-5). Mini-Cog Patient asked to remember the following three words: Banana, [place] and Chair Visuospatial/Executive Functioning: Clock drawin/2 (Normal clock with all number in correct sequence and position, hands are correct = 2 points, inability or refusal to draw a clock = 0) Three word recall: 3/3 Total score: 5/5 (Total score = word recall score + clock draw score) Functional Observation Was the patient's Timed Up AND Go test unsteady or >= 12 seconds? No Advance Care Planning Surrogate decision maker and/or advance care plan documented Measurements BP 158/88 Pulse 74 Resp 16 Ht 151.8 cm (4' 11.75) Wt 57.3 kg (126 lb 6.4 oz) LMP 07/28/2019 BMI 24.89 kg/m? Vision Screening: Follows with optometry/ophthalmology Assessment/Plan Medicare annual wellness visit, subsequent (Z00.00) - Counseled on healthy diet and regular exercise - Fall avoidance information provided - Personalized prevention plan provided See HPI Chief Complaint Patient presents with: Medicare Wellness Exam HPI Liam King is a 74 year old female who presents here today for a Medicare wellness and a routine follow up. Patient with hx of HTN, elevated glucose, Dyslipidemia, osteoporosis, and those as reviewed below. Nelsy reports a busy year and a half, during which she underwent a right knee replacement on 01/16 of last year. She reports a good outcome from the surgery, stating that she can walk now and has a nice range of motion, though she notes that the knee is not fully healed and is about 85% healed. She has a follow-up appointment with her orthopedic surgeon, Dr. Barajas, this Monday. She has been eating well, focusing on red and white foods, and hopes that her A1c and cholesterol levels are lower. She reports being able to walk a mile without dyspnea and has been staying active by walking around her condo complex and using the pool. She plans to join an exercise class this winter. She has completed her advanced directives, including her power of retail solar advisor and living will, and has her son, Yobany Laurent, listed as her healthcare power of retail solar advisor. She reports a history of fibrocystic breast condition since her 20s and had a scare last year with an abnormal mammogram, which led to an ultrasound that found nothing. She had a recent mammogram a couple of weeks ago at the [facility], which was normal, and she was advised to return in a year. She reports occasional acid reflux with phlegm, occurring about twice a month, but denies any recent fevers, frequent headaches, sudden changes in hearing or vision, issues with her nose or throat, hemoptysis, chest pain, palpitations, leg swelling, frequent nausea, emesis, or diarrhea. She also denies any recent hematuria or hematochezia. She has been undergoing pelvic floor strengthening exercises at a rehab facility on [facility] for a weak pelvic wall and a cystocele, as advised by her company dancer. She has about six more weeks of therapy left. She also reports an external hemorrhoid that is causing some discomfort. She denies any other joint pains, skin lesions, rashes, or sores, an (more content not included)... Normal [facility] Comprehensive metabolic 2000 panelon 01-20-2025 Albumin [Mass/Vol] 4.4 g/dL Normal 3.9-4.9 [facility] Comment on above: Order Comment: Paul brown Type: BLOOD SPECIMENOrdering Facility: [facility] Address: [address] [place] [address] Performed By: #### 2 4323-8, LIPPARISH, 2132-9 ####[facility] [id number] [place] [address] [place] ALP [Catalytic activity/Vol] 79 U/L Normal 34-123 [facility] Comment on above: Order Comment: Sparklei men Type: BLOOD SPECIMENOrdering Facility: [facility] Address: [address] [place] [address] Performed By: #### 2 4323-8, LIPNF, 2132-01 ####[facility] [id number] [place] [address] [place] ALT [Catalytic activity/Vol] 13 U/L Normal 7-38 [facility] Comment on above: Order Comment: Speci men Type: BLOOD SPECIMENOrdering Facility: [facility] Address: [address] [place] [address] Performed By: #### 2 432-8, LIPNF, 2132-01 ####[facility] [id number] [place] [address] [place] Anion gap [Moles/Vol] 13 mmol/L Normal 8-15 [facility] Comment on above: Order Comment: Speci men Type: BLOOD SPECIMENOrdering Facility: [facility] Address: [address] [place] [address] Performed By: #### 2 432-8, LIPNF, 2132-01 ####[facility] [id number] [place] [address] [place] AST [Catalytic activity/Vol] 20 U/L Normal 13-35 [facility] Comment on above: Order Comment: Speci men Type: BLOOD SPECIMENOrdering Facility: [facility] Address: [address] [place] [address] Performed By: #### 2 432-8, LIPNF, 2132-01 ####[facility] [id number] [place] [id number] [place] Bilirubin [Mass/Vol] 0.5 mg/dL Normal 0.2-1.3 [facility] Comment on above: Order Comment: Speci men Type: BLOOD SPECIMENOrdering Facility: [facility] Address: [address] [place] [address] Performed By: #### 2 4323-8, LIPNF, 2132-01 ####[facility] [id number] [address] [place] [address] [place] Calcium [Mass/Vol] 9.7 mg/dL Normal 8.5-10.2 [facility] Comment on above: Order Comment: Speci men Type: BLOOD SPECIMENOrdering Facility: [facility] Address: [address] [place] [address] Performed By: #### 2 432-8, LIPNF, 2132-01 ####[facility] [id number] [address] [place] [address] [place] Chloride [Moles/Vol] 108 mmol/L High 98-107 [facility] Comment on above: Order Comment: Speci men Type: BLOOD SPECIMENOrdering Facility: [facility] Address: [address] [place] [address] Performed By: #### 2 432-8, LIPNF, 2132-01 ####[facility] [id number] [address] [place] [address] [place] CO2 [Moles/Vol] 23 mmol/L Normal 22-30 [facility] Comment on above: Order Comment: Speci men Type: BLOOD SPECIMENOrdering Facility: [facility] Address: [address] [place] [address] Performed By: #### 2 4323-8, LIPNF, 2132-01 ####[facility] [id number] [address] [place] [address] [place] Creatinine [Mass/Vol] 0.70 mg/dL Normal 0.58-0.96 [facility] Comment on above: Order Comment: Speci men Type: BLOOD SPECIMENOrdering Facility: [facility] Address: [address] [place], [place] [address] Performed By: #### 2 4323-8, LIPNF, 2132-01 ####[facility] [id number] [place] [address] [place] eGFRcr SerPlBld CKD-EPI 2020 91 mL/min/1.73m??? Normal >=60 [facility] Comment on above: Order Comment: Paul brown Type: BLOOD SPECIMENOrdering Facility: [facility] Address: [address] [place] [address] Result Comment: Davide mated Glomerular Filtration Rate (eGFR) is calculated using the 2020 CKD-EPI creatinine equation. This equation utilizes serum creatinine, sex, and age as parameters. The creatinine assay has traceable calibration to isotope dilution-mass spectrometry. Refer to KDIGO guidelines for clinical interpretation. In patients with unstable renal function, e.g. those with acute kidney injury, the eGFR may not accurately reflect actual GFR. Performed By: #### 2 4323-8, CINTIA, 2132-01 ####[facility] [id number] [place] [address] [place] Glucose [Mass/Vol] 92 mg/dL Normal 74-99 [facility] Comment on above: Order Comment: Paul brown Type: BLOOD SPECIMENOrdering Facility: [facility] Address: [address] [place] [address] Result Comment: The [place] Diabetes Association (ADA) provides guidance for cutoff values for fasting glucose and random glucose. The ADA defines fasting as no caloric intake for at least 8 hours. Fasting plasma glucose results between 100 to 125 mg/dL indicate increased risk for diabetes (prediabetes). Fasting plasma glucose results greater than or equal to 126 mg/dL meet the criteria for diagnosis of diabetes. In the absence of unequivocal hyperglycemia, results should be confirmed by repeat testing. In a patient with classic symptoms of hyperglycemia or hyperglycemic crisis, random plasma glucose results greater than or equal to 200 mg/dL meet the criteria for diagnosis of diabetes. Reference: Standards of Medical Care in Diabetes 2016, Chinese Diabetes Association. Diabetes Care. 2016.39(Suppl 1). Performed By: #### 2 4323-8, LIPPARISH, 2132-01 ####[facility] [id number] [place] [id number] [place] Potassium [Moles/Vol] 4.3 mmol/L Normal 3.7-5.1 [facility] Comment on above: Order Comment: Speci men Type: BLOOD SPECIMENOrdering Facility: [facility] Address: [address] [place] [address] Performed By: #### 2 4323-8, LIPNF, 2132-01 ####[facility] [id number] [place] [id number] [place] Protein [Mass/Vol] 7.0 g/dL Normal 6.3-8.0 [facility] Comment on above: Order Comment: Speci men Type: BLOOD SPECIMENOrdering Facility: [facility] Address: [address] [place] [address] Performed By: #### 2 432-8, LIPNF, 2132-01 ####[facility] [id number] [place] [id number] [place] Sodium [Moles/Vol] 144 mmol/L Normal 136-144 [facility] Comment on above: Order Comment: Speci men Type: BLOOD SPECIMENOrdering Facility: [facility] Address: [address] [place], [place] [address] Performed By: #### 2 432-8, LIPNF, 2132-01 ####[facility] [id number] [place] [id number] [place] Urea nitrogen [Mass/Vol] 15 mg/dL Normal 7-21 [facility] Comment on above: Order Comment: Speci men Type: BLOOD SPECIMENOrdering Facility: [facility] Address: [address] [place] [address] Performed By: #### 2 4323-8, LIPNF, 2132-01 ####[facility] [id number] [address] [address] [place] HbA1c (Bld)on 01-20-2025 Average glucose Estimated from glycated hemoglobin (Bld) [Mass/Vol] 117 mg/dL Normal [facility] Comment on above: Order Comment: Speci men Type: BLOOD SPECIMENOrdering Facility: [facility] Address: [address] [place] [address] Result Comment: eAG: (Estimated average glucose) is a calculated value from HgbA1c and is operations representative of the average blood glucose level in the last 2-3 month period. Performed By: #### 5 5454-3 ####[facility] [id number] [place] [address] [place] HbA1c (Bld) [Mass fraction] 5.7 % High 4.3-5.6 [facility] Comment on above: Order Comment: Paul stephanie Type: BLOOD SPECIMENOrdering Facility: [facility] Address: [address] [place] [address] Result Comment: Amer ican Diabetes Association guidelines indicate that patients with HgbA1c in the range 5.7-6.4% are at increased risk for development of diabetes, and intervention by lifestyle modification may be beneficial. HgbA1c greater or equal to 6.5% is considered diagnostic of diabetes. Performed By: #### 5 5454-3 ####[facility] [id number] [place] [address] [place] LIPID PANEL, NONFASTINGon Cholesterol [Mass/Vol] 206 mg/dL High <200 [facility] Comment on above: Order Comment: Sparklei men Type: BLOOD SPECIMENOrdering Facility: [facility] Address: [address] [place] [address] Result Comment: <200 mg/dL, Desirable 200-239 mg/dL, Borderline high >239 mg/dL, High Performed By: #### 2 4323-8, LIPNF, 2132-9 ####[facility] [id number] [facility] [place] [address] [place] HDL CHOLESTEROL, NF 36 mg/dL Low >39 [facility] Comment on above: Order Comment: Sparklei men Type: BLOOD SPECIMENOrdering Facility: [facility] Address: [address] [place] [address] Result Comment: 40-5 9 mg/dL, Acceptable >59 mg/dL, High: Negative risk factor for coronary heart disease <40 mg/dL, Low: Positive risk factor for coronary heart disease Performed By: #### 2 4323-8, LIPPARISH, 2132-01 ####[facility] [id number] [address] [place] LDL CHOLESTEROL CALCULATED, NF 138 mg/dL High <100 [facility] Comment on above: Order Comment: Speci men Type: BLOOD SPECIMENOrdering Facility: [facility] Address: [address] [place] [address] Result Comment: <100 mg/dL, Optimal 100-129 mg/dL, Near optimal/above optimal 130-159 mg/dL, Borderline high 160-189 mg/dL, High >189 mg/dL, Very high Secondary prevention optimal LDL Cholesterol levels are recommended to be <70 mg/dL LDL cholesterol is calculated using the Chew-NIH equation. Performed By: #### 2 432-8, LIPPARISH, 2132-01 ####[facility] [id number] [place] [address] [place] LDL/HDL RATIO, NF 3.83 mg/dL High <2.54 [facility] Comment on above: Order Comment: Speci men Type: BLOOD SPECIMENOrdering Facility: [facility] Address: [address] [place] [address] Result Comment: Refdesire rence: 1. National Cholesterol Education Program ATP III Guideline At-A-Glance Quick Desk Reference: National Heart, Lung, and Blood [place]. National Institutes of Health. 2001: NIH Publication No. 01-3305. 2. An International Atherosclerosis Society position paper: global recommendations for the management of dyslipidemia: executive summary, Atherosclerosis. 2014: 232(2):410-413. Performed By: #### 2 4323-8, LIPNF, 2132-01 ####[facility] [id number] [place] [id number] [place] NON HDL CHOL, NF 170 mg/dL High <130 [facility] Comment on above: Order Comment: Speci men Type: BLOOD SPECIMENOrdering Facility: [facility] Address: [address] [place] [address] Result Comment: <130 mg/dL, Optimal 130-159 mg/dL, Near optimal/above optimal 160-189 mg/dL, Borderline high 190-219 mg/dL, High >219 mg/dL, Very high Secondary prevention optimal non HDL Cholesterol levels are recommended to be <100 mg/dL Performed By: #### 2 4323-8, LIPNF, 2132-01 ####[facility] [id number] [place] [address] [place] T CHOL/HDL RATIO NF 5.72 mg/dL High <5.10 [facility] Comment on above: Order Comment: Speci men Type: BLOOD SPECIMENOrdering Facility: [facility] Address: [address] [place] [address] Performed By: #### 2 4323-8, LIPNF, 2132-01 ####[facility] [id number] [place] [address] [place] TRIGLYCERIDES, NF 178 mg/dL High <150 [facility] Comment on above: Order Comment: Speci men Type: BLOOD SPECIMENOrdering Facility: [facility] Address: [address] [place] [address] Result Comment: <150 mg/dL, Normal 150-199 mg/dL, Borderline high 200-499 mg/dL, High >499 mg/dL, Very high Performed By: #### 2 4323-8, LIPNF, 2132-01 ####[facility] [id number] [place] [address] [place] VLDL CHOLESTEROL, NF 32 mg/dL High <30 [facility] Comment on above: Order Comment: Speci men Type: BLOOD SPECIMENOrdering Facility: [facility] Address: [address] [place] [address] Performed By: #### 2 4323-8, LIPNF, 2132-9 ####[id number] [facility] [address] [place] [address] [place] Urinalysis complete panel (U )on 01-20-2025 Bacteria LM.HPF (Urine sed) [#/Area] Negative Normal Negative [facility] Comment on above: Order Comment: Speci men Type: URINE SPECIMENOrdering Facility: [facility] Address: [address] [place] [address] Performed By: #### 2 4356-8 ####[facility] [id number] [address], [place] [address] [place] Bilirubin Ql (U) Negative Normal Negative [facility] Comment on above: Order Comment: Speci men Type: URINE SPECIMENOrdering Facility: [facility] Address: [address] [place] [address] Performed By: #### 2 4356-8 ####[facility] [id number] [address], [facility] [place] CALCIUM OXALATE CRYSTALS (UA) Few Abnormal None Seen [facility] Comment on above: Order Comment: Speci men Type: URINE SPECIMENOrdering Facility: [facility] Address: [address] [place] [address] Performed By: #### 2 4356-8 ####[facility] [id number] [address] [place] [address] [place] Clarity (Unsp spec) Clear Normal Clear [facility] Comment on above: Order Comment: Speci men Type: URINE SPECIMENOrdering Facility: [facility] Address: [address] [place] [address] Performed By: #### 2 4356-8 ####[facility] [id number] [address] [place] [address] [place] Color (U) Yellow Normal Yellow [facility] Comment on above: Order Comment: Speci men Type: URINE SPECIMENOrdering Facility: [facility] Address: [address] [place] [address] Performed By: #### 2 4356-8 ####[facility] [id number] [address] [place] [address] [place] Epithelial cells LM.HPF (Urine sed) [#/Area] Few Normal [facility] Comment on above: Order Comment: Speci men Type: URINE SPECIMENOrdering Facility: [facility] Address: [address] [place] [address] Performed By: #### 2 4356-8 ####[facility] [id number] [address], [address] STATES OF [facility] Glucose Test strip (U) [Mass/Vol] Negative Normal Negative [facility] Comment on above: Order Comment: Speci men Type: URINE SPECIMENOrdering Facility: [facility] Address: [address] [place] [address] Performed By: #### 2 4356-8 ####[facility] [id number] [place] [id number] [place] Hemoglobin Ql (U) Negative Normal Negative [facility] Comment on above: Order Comment: Speci men Type: URINE SPECIMENOrdering Facility: [facility] Address: [address] [place] [address] Performed By: #### 2 4356-8 ####[facility] [id number] [address] [place] [address] [place] Hyaline casts (Urine sed) [#/Area] 0 /[LPF] Normal 0 /LPF [facility] Comment on above: Order Comment: Speci men Type: URINE SPECIMENOrdering Facility: [facility] Address: [address] [place] [address] Performed By: #### 2 4356-8 ####[facility] [id number] [place] [address] [place] Ketones Ql (U) Trace Abnormal Negative [facility] Comment on above: Order Comment: Speci men Type: URINE SPECIMENOrdering Facility: [facility] Address: [address] [place] [address] Performed By: #### 2 4356-8 ####[facility] [id number] [place] [address] [place] Leukocyte esterase Test strip Ql (U) Trace Abnormal Negative [facility] Comment on above: Order Comment: Speci men Type: URINE SPECIMENOrdering Facility: [facility] Address: [address] [place] [address] Performed By: #### 2 4356-8 ####[facility] [id number] [place] [address] [place] Nitrite Ql (U) Negative Normal Negative [facility] Comment on above: Order Comment: Speci men Type: URINE SPECIMENOrdering Facility: [facility] Address: [address] [place] [address] Performed By: #### 2 4356-8 ####[facility] [id number] [place] [address] [place] pH (U) 5.5 [pH] Normal 5.0-8.0 [facility] Comment on above: Order Comment: Speci men Type: URINE SPECIMENOrdering Facility: [facility] Address: [address] [place] [address] Performed By: #### 2 4356-8 ####[facility] [id number] [place] [address] [place] Protein (U) [Mass/Vol] Negative Normal Negative [facility] Comment on above: Order Comment: Speci men Type: URINE SPECIMENOrdering Facility: [facility] Address: [address] [place] [address] Performed By: #### 2 4356-8 ####[facility] [id number] [place] [address] [place] RBC LM.HPF (Urine sed) [#/Area] 0-2 /HPF Normal 0-2 /HPF [facility] Comment on above: Order Comment: Speci men Type: URINE SPECIMENOrdering Facility: [facility] [facility] Address: [address] [place] [address] Performed By: #### 2 4356-8 ####[facility] LABIA [id number] [place] [address] [place] Specific gravity (U) [Rel density] 1.026 Normal 1.005-1.030 [facility] Comment on above: Order Comment: Speci men Type: URINE SPECIMENOrdering Facility: [facility] Address: [address] [place] [address] Performed By: #### 2 4356-8 ####[facility] [id number] [place] [address] [place] Urobilinogen Ql (U) 0.2 EU/dL Normal 0.2-1.0 EU/dL [facility] Comment on above: Order Comment: Speci men Type: URINE SPECIMENOrdering Facility: [facility] Address: [address] [place] [address] Performed By: #### 2 4356-8 ####[facility] [id number] [place] [address] [place] WBC LM.HPF (Urine sed) [#/Area] 0-5 /HPF Normal 0-5 /HPF [facility] Comment on above: Order Comment: Speci men Type: URINE SPECIMENOrdering Facility: [facility] Address: [address] [place] [address] Performed By: #### 2 4356-8 ####[facility] [id number] [place] [address] [place] VITAMIN D 25 HYDROXYon 01-20 25-hydroxyvitamin D3 [Mass/Vol] 49.9 ng/mL 31.0 - 80.0 ng/mL [facility] Vit B12 SerPl-ncon 025 Cobalamin (Vitamin B12) [Mass/Vol] 455 pg/mL Normal 232-1245 [facility] Comment on above: Order Comment: Speci men Type: BLOOD SPECIMENOrdering Facility: [facility] Address: [address] [place] [address] Performed By: #### 2 4323-8, LIPNF, 2132-9 ####[facility] [id number] [place] [address] [place] Inital Evaluation (1) - PTon 01-14-2025 Inital Evaluation (1) - PT [facility] [address] [place] [address] [address] [place] [address] / REHABILITATION SERVICES INITIAL EVALUATION MR#: [id number] Acct: [id number] Name: LIAM SMITH Rep #: [id number] : 1950 74 From: Purvi Barajas PT, Cert. MDT Referring Dr.: LUCY Jimenez Status: REG RC R Insurance: MEDICARE PART A B [facility] Patient's Visit Information Visit Information Visit Information: LIAM KING is a 74 year old F referred to Physical Therapy by LUCY Jimenez with a diagnosis of PROLAPSE. Date of Evaluation: 01/07/25 Physical Therapist: Purvi Barajas PT, Cert MDT Visit Plan Frequency: 1x/Week Duration: 2-4 Months Plan: PF THERAPY FOR STRENGTHENING, LENGTHENING/RELAXATION AND ENDURANCE TRAINING. HEALTHY BLADDER, BACK AND POSTURE HABIT EDUCATION. TRAINING IN COORDINATION OF PELVIC FLOOR MUSCULATURE WITH HIP AND CORE (TRANSVERSE ABDOMINUS) MUSCULATURE. CORE STRENGTHENING. EYAL LE ROM, STRETCHING AND STRENGTHENING. TRAINING IN ABDOMINAL CAVITY PRESSURE MGMT WITH ADL'S. Subjective Subjective: Work/Leisure: RETIRED Present symptoms: WEAKNESS IN PELVIC AREA. INTERMITTENT FEELING OF A LITTLE BIT OF BULGING IN THE VAGINAL AREA WHEN SHOWERING MAYBE A COUPLE TIMES A WEEK THAT PATIENT PUSHES BACK UP IN AND THEN STAYS AND FEELS FINE - IT DOESN'T EVEN HURT ME. PATIETNT DENIES ANY BOWEL OR URINARY INCONTINENE. Present since: A COUPLE OF YEARS Is it getting better, worse or staying the same: STAYING THE SAME Commenced as a result of: 3 VAGINAL VIRTHS Worse: STANDING Better: PUSHING IT BACK UP IN Disturbed sleep: GETTING UP TO URINATE APPROX ONE TIME PER NIGHT. Previous history/Previous treatment: [address] SHULTZ. Treatment this episode: CONSULT PENDING WITH A CLASSIFIED COPY CONTROL CLERK IN A FEW WEEKS. Coughing/sneezing/strai gisell: NEGATIVE FOR UI Gait: NORMAL How long can you delay the need to urinate: LONG NEEDED TO MAKE IT TO THE BATHROOM IN TIME. Prolapse (Falling out feeling): A COUPLE TIMES A WEEK. Frequency of Urination: APPROX 4 TIMES A DAY Ability to stop urine flow: CAN COMPLETELY STOP THE FLOW Ability to initiate urine stream: YES, NEVER DIFFICULT. Dyspareunia: N/A Bowel Incontinence: PATIENT REPORTS SHE HAS NORMAL BOWEL MOVEMENTS AND SHE DOES NOT HAVE LEAKAGE OF BM BUT WHEN SHE GETS URGENCY SOMETIMES SHE HAS TO HURRY TO GET THERE IN TIME. Accidents: NO Unexplained weight loss: NO Imaging: NO PMH/Recent major surgery: L TKR BY DR. BARAJAS IN [place] DEC 2023 OTHER: PATIENT REPORTS SHE IS ACTIVE BUT DOES NOT HAVE A GYM MEMBERSHIP OR GO TO EX CLASS. SHE DOES DO EX'S BUT MAINLY WALKS ABOUT A MILE A DAY FOR EX. Objective Objective: Sitting/Standing Posture: R ILIAC CREST HIGHER THAN LEFT. REDUCED LORDOSIS. NO RELEVANT LATERAL LUMBAR SHIFT. Other Observations: THIS PATIENT AMBULATES INDEP'LY INTO PT WITHOUT ANY AD'S WITH MILD LIMP ON L LE. Sensory deficit: DECREASED LIGHT TOUCH SENSATION IN REGION OF L TKR INCISION. ROM deficit: EYAL HIP ADD, ER, HS AND CALF TIGHTNESS Motor deficit: EYAL LE'S GROSS 5/5 EXCEPT HIPS 4/5. PELVIC FLOOR: 3/5 X 4 REPS X 4 SEC WITH MANUAL INTERNAL VAGINAL TESTING. Dural Signs: NEGATIVE EYAL LE'S. Lumbar mvmt loss: flex - NIL ext - JAN R SG - JAN L SG - JAN Core strength: FAIR Palpation: NO ACUTE TENDERNESS WITH LIGHT PALPATION OF LUMBAR, SACARAL OR EYAL HIP REGIONS. PELVIC FLOOR: NO ACUTE TENDERNESS, INCREASED TONE OR TRIGGER POINTS WITH MANUAL INTERNAL VAGINAL PALPATION. Goals Goal 1:: INCREASE PELVIC FLOOR STRENGTH FOR BETTER ORGAN SUPPORT Goal Time Frame: 8-12 Weeks Goal 2:: INCREASE ABDOMINAL/TRUNK AND LE STRENGTH FOR OPTIMAL ORGAN SUPPORT Goal Time Frame: 8-12 Weeks Goal 3:: PATIENT WILL APPROPRIATELY MANAGE CHANGES IN INTRAABDOMINAL PRESSURE WITH APPROPRIATE PELVIC FLOOR MUSCLE ACTIVATION AND BREATHING TECHNIQUES. Goal Time Frame: 4-6 Weeks Goal 4:: PATIENT WILL DEMONSTRATE/COMMUNICATE PROPER POSTURE CONTROL AND BODY MECHANICS FOR HEALTHY BACK HABITS TO OPTIMIZE PELVIC FLOOR FUNCTION. Goal Time Frame: 2-4 Weeks Goal 5:: PATIENT WILL COMMUNICATE HEALTHY BLADDER HABITS TO OPTIMIZE PELVIC FLOOR FUNCTION. Goal Time Frame: 2-4 Weeks Goal 6:: PATIENT WILL BE INDEP WITH A HEP FOR CONTINUED IMPROVEMENT ONCE FORMAL PHYSICAL THERAPY CONCLUDES. Goal Time Frame: 8-12 Weeks Rehabilitation Potential Physical Therapy Diagnosis: CORE AND LE STIFFNESS AND WEAKNESS WITH PELVIC FLOOR WEAKNESS. Rehabilitation Potential: Good Anticipated Interventions Patient/Client Instruction: Educate patient on: Condition, Plan of Care and Risk Factors For the Purpose of:: To improve self management Therapeutic Exercise to Include: Strength training, Endurance training, Body mechanics, Postural training, Flexibilty training, Neuromotor development and Relaxation training For th (more content not included)... Normal [facility] DBT Breast - left diagnostic for implanton 01-08-2025 IMPRESSION: There is no mammographic evidence of malignancy. Return to annual screening mammogram is recommended. Annual mammogram will be due in 1 year. BI-RADS Category 2: Benign RISK: Based on the Tyrer-Cuzick (TC) risk assessment model, this patient has a 1.9% lifetime risk of developing breast cancer, meaning they are at average risk for developing breast cancer. However, this is only an estimate based on available history provided on the patient's questionnaire. We encourage all patients to talk with their providers about these results, further recommendations for managing breast health, and appropriate supplemental screening options if the patient has dense breast tissue. Interpreting Radiologist: Curtis Chowdary M.D. Electronically signed on: 01/08/2025 Multiple Resaw Operator: AP Transcribe Date/Time: Jan 08 2025 9:02A Dictated by: CURTIS CHOWDARY MD This examination was interpreted and the report reviewed and electronically signed by: CURTIS CHOWDARY MD on Jan 08 2025 9:46AM [facility] DIVISION OF RADIOLOGY * * *Final Report* * * DATE OF EXAM: Jan 08 2025 9:16AM [facility] 0628 - BERNARD DIAG W MAYR LT / PROCEDURE REASON: Abnormal mammogram * * * * Physician Interpretation * * * * RESULT: [facility] [address] [id number] #[id number] - BERNARD DIAG W MARY LT HISTORY: 74 year-old patient presents for diagnostic evaluation of the finding(s) described on prior mammogram in the left breast. Patient states no personal history of breast cancer. COMPARISON STUDIES: The present examination has been compared to prior imaging studies dated 12/13/2024 (mammogram) and 01/08/2025 (ultrasound). MAMMOGRAM TECHNIQUE: The study was acquired using full field digital technology and interpreted from soft copy. Digital Breast Tomosynthesis (DBT) images were obtained and used to assist in the interpretation of this examination. MAMMOGRAM FINDINGS: The breast is heterogeneously dense, which may obscure small masses. Area of concern in the left breast effaces on additional imaging, presumably representing superimposed fibroglandular tissue. No suspicious masses, calcifications or other abnormalities are seen in the left breast. DIVISION OF RADIOLOGY Provider, [facility] - 01/08/2025 * * *Final Report* * * DATE OF EXAM: Jan 08 2025 9:16AM [facility] 0628 - BERNARD DIAG W MARY LT / PROCEDURE REASON: Abnormal mammogram * * * * Physician Interpretation * * * * RESULT: [facility] [address] [place] [address] #[id number] - BERNARD DIAG W MARY LT HISTORY: 74 year-old patient presents for diagnostic evaluation of the finding(s) described on prior mammogram in the left breast. Patient states no personal history of breast cancer. COMPARISON STUDIES: The present examination has been compared to prior imaging studies dated 12/13/2024 (mammogram) and 01/08/2025 (ultrasound). MAMMOGRAM TECHNIQUE: The study was acquired using full field digital technology and interpreted from soft copy. Digital Breast Tomosynthesis (DBT) images were obtained and used to assist in the interpretation of this examination. MAMMOGRAM FINDINGS: The breast is heterogeneously dense, which may obscure small masses. Area of concern in the left breast effaces on additional imaging, presumably representing superimposed fibroglandular tissue. No suspicious masses, calcifications or other abnormalities are seen in the left breast. IMPRESSION IMPRESSION: There is no mammographic evidence of malignancy. Return to annual screening mammogram is recommended. Annual mammogram will be due in 1 year. BI-RADS Category 2: Benign RISK: Based on the Tyrer-Cuzick (TC) risk assessment model, this patient has a 1.9% lifetime risk of developing breast cancer, meaning they are at average risk for developing breast cancer. However, this is only an estimate based on available history provided on the patient's questionnaire. We encourage all patients to talk with their providers about these results, further recommendations for managing breast health, and appropriate supplemental screening options if the patient has dense breast tissue. Interpreting Radiologist: Curtis Chowdary M.D. Electronically signed on: 01/08/2025 Multiple Resaw Operator: AP Transcribe Date/Time: Jan 08 2025 9:02A Dictated by: CURTIS CHOWDARY MD This examination was interpreted and the report reviewed and electronically signed by: CURTIS CHOWDARY MD on Jan 08 2025 9:46AM EST [facility] Radiology Study observation (narrative) [facility] DBT Breast - left diagnostic for implantOrdered By: [facility] Provider on 01-08-2025 [facility] BERNARD DIAG W MARY LTon 025 BERNARD DIAG W MARY LT * * *Final Report* * * DATE OF EXAM: Jan 08 2025 9:16AM [facility] 0628 - BERNARD DIAG W MARY LT / PROCEDURE REASON: Abnormal mammogram * * * * Physician Interpretation * * * * RESULT: [facility] [address] [place] [address] #[id number] - BERNARD DIAG W MARY LT HISTORY: 74 year-old patient presents for diagnostic evaluation of the finding(s) described on prior mammogram in the left breast. Patient states no personal history of breast cancer. COMPARISON STUDIES: The present examination has been compared to prior imaging studies dated 12/13/2024 (mammogram) and 01/08/2025 (ultrasound). MAMMOGRAM TECHNIQUE: The study was acquired using full field digital technology and interpreted from soft copy. Digital Breast Tomosynthesis (DBT) images were obtained and used to assist in the interpretation of this examination. MAMMOGRAM FINDINGS: The breast is heterogeneously dense, which may obscure small masses. Area of concern in the left breast effaces on additional imaging, presumably representing superimposed fibroglandular tissue. No suspicious masses, calcifications or other abnormalities are seen in the left breast. IMPRESSION: There is no mammographic evidence of malignancy. Return to annual screening mammogram is recommended. Annual mammogram will be due in 1 year. BI-RADS Category 2: Benign RISK: Based on the Tyrer-Cuzick (TC) risk assessment model, this patient has a 1.9% lifetime risk of developing breast cancer, meaning they are at average risk for developing breast cancer. However, this is only an estimate based on available history provided on the patient's questionnaire. We encourage all patients to talk with their providers about these results, further recommendations for managing breast health, and appropriate supplemental screening options if the patient has dense breast tissue. Interpreting Radiologist: Curtis Chowdary M.D. Electronically signed on: 01/08/2025 Multiple Resaw Operator: AP Transcribe Date/Time: Jan 08 2025 9:02A Dictated by: CURTIS CHOWDARY MD This examination was interpreted and the report reviewed and electronically signed by: CURTIS CHOWDARY MD on Jan 08 2025 9:46AM EST [id number] Normal [facility] 12-16-2024 CNPN Telephone (RADMN) LIAM SMITH ([id number]) 1950 F Date Time Provider Department 12/16/24 DELVIN SALEH During your visit today, we recorded the following information about you: Allergies As of Date: 12/16/2024 (No Known Allergies) Date Reviewed: 12/13/2024 Reviewed by: Carlene Saleem APRN.DIVER HELPER - Fully Assessed Reason for Visit: Mammogram Result Call Back [[id number]] Prescriptions as of 12/16/2024 - Cholecalciferol, Vitamin D3, 1,000 unit cap Take 2,000 Units by mouth once daily. Problem List As Of Date 12/16/2024 Noted Resolved Encounter for gynecological examination without*05/06/2015 Varicose veins [I83.90] 05/06/2015 Pain in left knee [M25.562] 05/06/2015 Left arm pain [M79.602] 05/06/2015 Family history of thyroid disease [Z83.49] 10/25/2016 Medicare annual wellness visit, subsequent [Z00*10/25/2016 Colon cancer screening [Z12.11] 10/25/2016 Encounter for screening for diabetes mellitus [*06/17/2019 Elevated fasting glucose [R73.01] 07/08/2019 Arthritis of both knees [M17.0] 04/29/2020 Age-related osteoporosis without current pathol*01/06/2021 Advance directive discussed with patient [Z71.8*11/23/2021 Renal cyst [N28.1] 11/26/2021 Hypertension, essential [I10] 01/16/2022 Paresthesia [R20.2] 07/25/2023 Medication management [Z79.899] 07/25/2023 Low serum vitamin B12 [E53.8] 07/25/2023 Dyslipidemia [E78.5] 01/10/2024 Encounter Status:Closed by SARA PAINTER on 12/16/24 [facility] Sakshi 12-13-2024 CNOV Office Visit (OBGYWM ) LIAM SMITH ([id number]) 1950 F Date Time Provider Department 12/13/24 8:15 AM CARLENE SALEEM During your visit today, we recorded the following information about you: Blood pressure Weight Height Last Period 142/82 57.2 kg 1.524 m 07/28/19 Carlene Saleem APRN.CNP 12/13/2024 8:41 AM Signed Type Caster offered: Patient declines. Nelsy is a 74 year old who presents for an annual gynecologic exam without complaints. Postmenopausal: Yes HRT use: No. Still get period: No Menopause symptoms: None control frequency: postmenopausal HPV vaccine: Unsure; Last pap smear: 10/28/2023 History of abnormal pap: Yes, 2023 ASCUS, Thomas CIN2, LEEP 2023 HSIL Bothersome pelvic pain: No Last mammogram: 2023 abnormal History of abnormal mammogram: Yes OB History No obstetric history on file. 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 Repeat bone density in 2 years Arthritis of both knees 04/29/2020 Sever on right and moderate on left of medial joint spaces. ASCUS with positive high risk HPV cervical 2023 Dyslipidemia 01/10/2024 Dysplasia of cervix, high grade MARY 2 Elevated fasting glucose 07/08/2019 Family history of thyroid disease 10/25/2016 Hemorrhage of rectum and anus 08/03/2005 Hypertension, essential 01/16/2022 Low serum vitamin B12 07/25/2023 Medicare annual wellness visit, subsequent 10/25/2016 last done: 10/25/2016 Pain in left knee 05/06/2015 Paresthesia 07/25/2023 Hands and Feet: 06/2023 B12 low so started on B12. If no improvement may need NCS/EMG's Renal cyst 11/26/2021 Varicose veins 05/06/2015 PAST SURGICAL HISTORY Procedure Laterality Date CERVIX UTERI CONIZA LP ELCTRO EXCI 10/2023 COLONOSCOPY 2005 COLONOSCOPY SCREENING 12/2022 IMMUNOCHEMICAL FECAL OCCULT BLOOD TEST 11/08/2016 negative PAST SURGICAL HISTORY OF 1978 varicose veins stripped bilateral. PAST SURGICAL HISTORY OF sclerotherapy several times PAST SURGICAL HISTORY OF 2007 anterior vaginal repair prolapse TOTAL KNEE REPLACEMENT Left 12/2023 FAMILY HISTORY Problem Relation Age of Onset Cancer Mother smoker Thyroid Mother Alzheimer's Disease Father Heart disease Sister Stroke Maternal Grandfather Diabetes Paternal Grandmother SOCIAL HISTORY Social History Tobacco Use Smoking status: Never Smokeless tobacco: Never Vaping Use Vaping status: Never Used Substance Use Topics Alcohol use: Not Currently Comment: ocassional wine Drug use: Never REVIEW OF SYSTEMS Abdomen: No abdominal pain, nausea, vomiting, diarrhea, or constipation. No bloating, early satiety, indigestion, or increased flatulence. Bladder: No dysuria, gross hematuria, urinary frequency, urinary urgency, or incontinence Breast: No breast lumps, nipple d/c, overlying skin changes, redness or skin retraction Allergies and current medication updated:Yes SENSITIVE EXAM: The sensitive examination was discussed with the Patient or Patient's Authorized Compensation Associate. As applicable, any other physician, advance practice provider, medical student, or other health professional student that will be observing or involved in the sensitive examination for educational or training purposes was discussed with the Patient or Authorized Compensation Associate. The Patient or Authorized Compensation Associate has agreed to proceed with the sensitive examination. (Sensitive examination includes inspection and/or palpation of the breasts, pelvis, prostate and anorectal regions). EXAM: BP 142/82 Ht 5' 0 (1.52m) Wt 126 lb (57.2kg) LMP 07/28/2019 BMI 24.61 kg/(m2). GENERAL: pleasant, female in no apparent distress HEENT: Normocephalic, atraumatic, mucus membranes moist, and no lesions NECK: Supple, full range of motion, no adenopathy, and thyroid normal DERMATOLOGY: Normal, without lesions, non-icteric, and non-hirsute BREAST: soft, non-tender, symmetric, no dominant mass, normal nipple-areolar complex, no lymphadenopathy, and no nipple discharge CHEST: Normal inspiratory effort ABDOMEN: soft, non-tender, and no masses PELVIC: external genitalia normal, normal Bartholin's glands, urethra, [place]'s glands, no vulvar lesions, + smooth pink nodule noted to anterior cervix, + uterovaginal prolapse, 2nd degree, physiologic discharge present, normal appearing perineal body and perianal region BIMANUAL: uterus normal size, shape and consistency, no adnexal masses, and non-tender RECTOVAGINAL: deferred. NEURO: alert and oriented (more content not included)... Normal [facility] Myla 12-13-2024 MARKN Telephone (OBGYWM) LIAM SMITH ([id number]) 1950 F Date Time Provider Department 12/13/24 CARLENE SALEEM During your visit today, we recorded the following information about you: Carlene Saleem APRN.CNP 12/13/2024 8:42 AM Signed Please fax PFPT consult to [facility] Thank you, Carlene Saleem APRN.Mary Corcoran RN 12/13/2024 9:03 AM Signed Order faxed. Mary Villalpando RN Allergies As of Date: 12/13/2024 (No Known Allergies) Date Reviewed: 12/13/2024 Reviewed by: Carlene Saleem APRN.CNP - Fully Assessed Reason for Visit: Appointment [[id number]] Prescriptions as of 12/13/2024 - Cholecalciferol, Vitamin D3, 1,000 unit cap Take 2,000 Units by mouth once daily. Problem List As Of Date 12/13/2024 Noted Resolved Encounter for gynecological examination without*05/06/2015 Varicose veins [I83.90] 05/06/2015 Pain in left knee [M25.562] 05/06/2015 Left arm pain [M79.602] 05/06/2015 Family history of thyroid disease [Z83.49] 10/25/2016 Medicare annual wellness visit, subsequent [Z00*10/25/2016 Colon cancer screening [Z12.11] 10/25/2016 Encounter for screening for diabetes mellitus [*06/17/2019 Elevated fasting glucose [R73.01] 07/08/2019 Arthritis of both knees [M17.0] 04/29/2020 Age-related osteoporosis without current pathol*01/06/2021 Advance directive discussed with patient [Z71.8*11/23/2021 Renal cyst [N28.1] 11/26/2021 Hypertension, essential [I10] 01/16/2022 Paresthesia [R20.2] 07/25/2023 Medication management [Z79.899] 07/25/2023 Low serum vitamin B12 [E53.8] 07/25/2023 Dyslipidemia [E78.5] 01/10/2024 Encounter Status:Closed by MARY VILLALPANDO on 12/13/24 Normal [facility] HIGH RISK HUMAN PAPILLOMA DARI (HPV), PCR FOR DETECTION AND GENOTYPINGon 12-13-2024 HPV 16 Ag Ql (Unsp spec) Not detected Normal Not detected [facility] Comment on above: Order Comment: Speci men Type: FLUID SPECIMENOrdering Facility: [facility] Address: [address] [place] [address] Performed By: #### H PVHRT ####[facility] [id number] [place] [address] [place] HPV 18 Ag Ql (Unsp spec) Not detected Normal Not detected [facility] Comment on above: Order Comment: Speci men Type: FLUID SPECIMENOrdering Facility: [facility] Address: [address] [place] [address] Performed By: #### H PVHRT ####[facility] [id number] [place] [address] [place] HPV 31+33+35+39+45+51+52 +56+58+59+66+68 DNA MARGO+probe Ql (Cvx) Not detected Normal Not detected [facility] Comment on above: Order Comment: Speci men Type: FLUID SPECIMENOrdering Facility: [facility] Address: [address] [place] [address] Result Comment: High Risk HPV Other Type includes HPV types 31, 33, 35, 39, 45, 51, 52, 56, 58, 59, 66 and 68. Performed By: #### H PVHRT ####[facility] LABSHANNON [id number] LIND[place] [address] [place] [id number] [place] BERNARD SCREENING W TOMOon 12-13 BERNARD SCREENING W MARY * * *Final Report* * * DATE OF EXAM: Dec 13 2024 10:25AM [id number] - BERNARD SCREENING W MARY / PROCEDURE REASON: Encounter for screening mammogram for breast cancer * * * * Physician Interpretation * * * * RESULT: [facility] [address] [place] [address] #[id number] - BERNARD SCREENING W MARY HISTORY: 74 year-old patient presents for screening. Patient is asymptomatic in both breasts. Patient states no personal history of breast cancer. COMPARISON STUDIES: The present examination has been compared to prior imaging studies. MAMMOGRAM TECHNIQUE: The study was acquired using full field digital technology and interpreted from soft copy. Digital Breast Tomosynthesis (DBT) images were obtained and used to assist in the interpretation of this examination. MAMMOGRAM FINDINGS: The breasts are heterogeneously dense, which may obscure small masses. There is a focal asymmetry in the upper inner quadrant of the left breast, middle depth. No suspicious masses, calcifications or other abnormalities are seen in the right breast. IMPRESSION: The focal asymmetry in the upper inner quadrant of the left breast, middle depth requires additional evaluation. Diagnostic mammogram is recommended. BI-RADS Category 0: Incomplete: Needs Additional Imaging Evaluation RISK: Based on the Tyrer-Cuzick (TC) risk assessment model, this patient has a 1.9% lifetime risk of developing breast cancer, meaning they are at average risk for developing breast cancer. However, this is only an estimate based on available history provided on the patient's questionnaire. We encourage all patients to talk with their providers about these results, further recommendations for managing breast health, and appropriate supplemental screening options if the patient has dense breast tissue. REF#[id number]. Interpreting Radiologist: Delvin Saleh M.D. Electronically signed on: 12/16/2024 Multiple Resaw Operator: AP Transcribe Date/Time: Dec 13 2024 10:14A Dictated by: DELVIN SALEH MD This examination was interpreted and the report reviewed and electronically signed by: DELVIN SALEH MD on Dec 16 2024 1:09PM EST [id number] Normal [facility] PAP TESTon 12-13-2024 ADEQUACY Normal [facility] Comment on above: Order Comment: Speci men Type: FLUID SPECIMENOrdering Facility: [facility] Address: [address] [place] [address] Result Comment: Sati sfactory for interpretation. Transformation zone present Performed By: #### L [id number] ####[facility] [id number] [address] LABCLIA [id number] [place] [address] [place] CASE REPORT Normal [facility] Comment on above: Order Comment: Speci men Type: FLUID SPECIMENOrdering Facility: [facility] Address: [address] [place] [address] Result Comment: Gyne cologic Cytology Report Case: [id number] Authorizing Provider: Carlene Saleem APRN.DIVER HELPER Collected: 12/13/2024 08:42 AM Ordering Location: OB/Gynecology Received: 12/13/2024 11:26 AM First Screen: Carlene Richards, CT, ASCP Pathologist: Jose Tilley MD Specimen: Pap Test, ThinPrep, Cervix Performed By: #### L [id number] ####[facility] [id number] [address] LABCLIA [id number] [address] [place] CLINICAL HISTORY, CYTOLOGY, DATA ACQUISITION TECHNICIAN Previous ASCUS Normal [facility] Comment on above: Order Comment: Speci men Type: FLUID SPECIMENOrdering Facility: [facility] Address: [address] [place] [address] Result Comment: Prev ious LEEP Post Menopausal Performed By: #### L [id number] ####[facility] [id number] [address] [facility] LABCLIA [id number] [place] [address] [place] FINAL PERFORMING LAB Normal [facility] Comment on above: Order Comment: Speci men Type: FLUID SPECIMENOrdering Facility: [facility] Address: [address] [place] [address] Result Comment: Tech nical component, computer support specialist instructor screening performed at: [facility], [address] [place] [address] CLIA: [id number] Diagnostic interpretation performed at: [facility], [address] [place] [address] CLIA# [id number] Mechanical Engineer: Kay Jim MD Performed By: #### L [id number] ####[facility] [id number] [address] LABCLIA [id number] [place] [address] [place] INTERPRETATION, CYTOLOGY, DATA ACQUISITION TECHNICIAN Abnormal [facility] Comment on above: Order Comment: Speci men Type: FLUID SPECIMENOrdering Facility: [facility] Address: [address] [place] [address] Result Comment: Atyp ical squamous cells of undetermined significance (ASC-US). at 1021 EDT Performed By: #### L [id number] ####[facility]ORATORYCLIA [id number] [address] STATES [facility] LABCLIA [id number] [place] [address] [place] PAP DISCLAIMER COMMENT The Pap Smear is a screening test for cervical cancer. False negative results occur with all screening tests, emphasizing the need for rescreening at recommended intervals, and clinical correlation. Normal [facility] Comment on above: Order Comment: Speci men Type: FLUID SPECIMENOrdering Facility: [facility] Address: [address] [place] [address] Performed By: #### L [id number] ####[facility]IA [id number] [address] LABIA [id number] [place] [address] [place] PAP GENERAL CATEGORIZATION Epithelial Cell Abnormality Normal [facility] Comment on above: Order Comment: Speci men Type: FLUID SPECIMENOrdering Facility: [facility] Address: [address] [place] [address] Performed By: #### L [id number] ####[facility]ORY[facility] [id number] [address] [id number] [address] [place] PAP ASSOCIATE JUSTICE COMMENT This specimen has be en analyzed by the FDA-approved [employer] System, which uses digital imaging and an enhanced artificial intelligence image analysis algorithm to identify huber of interest on the microscopic slide, to assist the occupational therapy manager and pathologist in evaluating cells on ThinPrep Pap tests. Following analysis, huber of interest on the microscopic slide selected by the algorithm are reviewed by a occupational therapy manager. If a sample requires hierarchical review, the pathologist will review the same huber of interest selected by the algorithm prior to final interpretation. Normal [facility] Comment on above: Order Comment: Speci men Type: FLUID SPECIMENOrdering Facility: [facility] Address: [address] [place] [address] Performed By: #### L [id number] ####[facility]ORYIA [id number] [address] [facility] [id number] [address] [place] Myla 09-02-2024 MARKN Telephone (FAMPWS) LIAM SMITH ([id number]) 1950 F Date Time Provider Department 09/02/24 BHANU MENG During your visit today, we recorded the following information about you: Renae Nicholas, RN 09/02/2024 2:35 PM Signed Pt reports she picked up lisinopril 5 mg today, and instructions are wrong: reads: take 1 tab daily with 10 mg tab to equal 15 mg. Reports provider told her to take 5 mg daily. Advised pt I would call pharmacy and clarify the Rx's and instructions. Phoned [facility] and told them this. Pharmacy states they never received the discontinue on the lisinopril 5 mg that states take with 10 mg tab to equal 15 mg. Advised pharmacist this one was discontinued on 08/29/24 when new one was sent and patient should be taking the 5 mg daily only. Pharmacist agreeable. Allergies As of Date: 09/02/2024 (No Known Allergies) Date Reviewed: 08/29/2024 Reviewed by: Ivory De Leon MA - Fully Assessed Reason for Visit: Medication Problem [65] Prescriptions as of 09/02/2024 - lisinopril (ZESTRIL) 5 mg tablet Take 1 tablet by mouth once daily. - omeprazole (PRILOSEC) 40 mg capsule Take 1 capsule by mouth once daily. - celecoxib (CELEBREX) 200 mg capsule Take 1 capsule by mouth once daily. - cyanocobalamin (VITAMIN B-12) 1,000 mcg tab Take 1,000 mcg by mouth once daily. - Cholecalciferol, Vitamin D3, 1,000 unit cap Take 2,000 Units by mouth once daily. Problem List As Of Date 09/02/2024 Noted Resolved Encounter for gynecological examination without*05/06/2015 Varicose veins [I83.90] 05/06/2015 Pain in left knee [M25.562] 05/06/2015 Left arm pain [M79.602] 05/06/2015 Family history of thyroid disease [Z83.49] 10/25/2016 Medicare annual wellness visit, subsequent [Z00*10/25/2016 Colon cancer screening [Z12.11] 10/25/2016 Encounter for screening for diabetes mellitus [*06/17/2019 Elevated fasting glucose [R73.01] 07/08/2019 Arthritis of both knees [M17.0] 04/29/2020 Age-related osteoporosis without current pathol*01/06/2021 Advance directive discussed with patient [Z71.8*11/23/2021 Renal cyst [N28.1] 11/26/2021 Hypertension, essential [I10] 01/16/2022 Paresthesia [R20.2] 07/25/2023 Medication management [Z79.899] 07/25/2023 Low serum vitamin B12 [E53.8] 07/25/2023 Dyslipidemia [E78.5] 01/10/2024 Encounter Status:Closed by Renae NICHOLAS on 09/02/24 [facility] CNOVon 08-29-2024 CNOV Office Visit (FAMPWS ) LIAM SMITH ([id number]) 1950 F Date Time Provider Department 08/29/24 9:20 AM RAFAELA WASHINGTON During your visit today, we recorded the following information about you: Pulse Blood pressure Weight 81/minute 147/78 57 kg Rafaela Washington, AMARIS.DIVER HELPER 08/29/2024 9:27 AM Signed Chief Complaint Patient presents with: Follow Up HPI Liam Salgadoke Fritz is a 74 year old female who presents here today for Above Complaints.. Patient presents for follow up for BP. Patient reports she is doing well and home BP's are well controlled. Past medical history, appointments, medications, allergies reviewed. Previous Medical History PAST MEDICAL HISTORY Diagnosis Date Age-related osteoporosis without current pathological fracture 01/06/2021 patient declines treatment beyond calcium and vit d as of 01/06/21. Repeat bone density in 2 years Arthritis of both knees 04/29/2020 Sever on right and moderate on left of medial joint spaces. Dyslipidemia 01/10/2024 Elevated fasting glucose 07/08/2019 Family history of thyroid disease 10/25/2016 Hemorrhage of rectum and anus 08/03/2005 Hypertension, essential 01/16/2022 Low serum vitamin B12 07/25/2023 Medicare annual wellness visit, subsequent 10/25/2016 last done: 10/25/2016 Pain in left knee 05/06/2015 Paresthesia 07/25/2023 Hands and Feet: 06/2023 B12 low so started on B12. If no improvement may need NCS/EMG's Renal cyst 11/26/2021 Varicose veins 05/06/2015 Previous Surgical History PAST SURGICAL HISTORY Procedure Laterality Date COLONOSCOPY 2005 COLONOSCOPY SCREENING 12/2022 FECAL OCCULT BLOOD TEST 11/08/2016 negative PAST SURGICAL HISTORY OF 1977 varicose veins stripped bilateral. PAST SURGICAL HISTORY OF sclerotherapy several times PAST SURGICAL HISTORY OF 2007 anterior vaginal repair prolapse TOTAL KNEE REPLACEMENT Left 12/2023 Family History FAMILY HISTORY Problem Relation Age of Onset Cancer Mother smoker Thyroid Mother Alzheimer's Disease Father Heart disease Sister Stroke Maternal Grandfather Diabetes Paternal Grandmother Patient Allergies ALLERGIES No Known Allergies Current Medications Current Outpatient Medications on File Prior to Visit Medication Sig omeprazole (PRILOSEC) 40 mg capsule Take 1 capsule by mouth once daily. lisinopril (ZESTRIL) 5 mg tablet Take 1 tablet by mouth once daily. Take with the 10mg for total dose of 15mg daily celecoxib (CELEBREX) 200 mg capsule Take 1 capsule by mouth once daily. cyanocobalamin (VITAMIN B-12) 1,000 mcg tab Take 1,000 mcg by mouth once daily. Cholecalciferol, Vitamin D3, 1,000 unit cap Take 2,000 Units by mouth once daily. No current facility-administered medications on file prior to visit. Social History Social History Tobacco Use Smoking status: Never Smokeless tobacco: Never Vaping Use Vaping status: Never Used Substance Use Topics Alcohol use: Not Currently Comment: ocassional wine Drug use: Never Review of Symptoms REVIEW OF SYSTEMS SEE HPI EXAM: BP 147/78 Pulse 81 Wt 57 kg (125 lb 10.6 oz) BMI 24.14 kg/m? General Appearance: Well appearing, alert, in no acute distress, well-hydrated, well nourished. Lungs: Lungs clear to auscultation. No wheezing, rhonchi, rales.. Heart: RRR without murmur, gallop, or rubs. No ectopy. Health Maintenance List BP Controlled (<130/80) Never done Bone Density Screening due on 12/21/2022 Advance Directive Discussion due on 05/29/2024 Mammogram Screening due on 06/22/2024 Cervical Cancer Screening due on 07/10/2024 Influenza Vaccine(1) due on 11/25/2024 DTaP,Tdap,Td Vaccine(2 - Td or Tdap) due on 12/01/2024 Depression Screening due on 01/09/2025 Anxiety Screening due on 01/09/2025 Annual PCP Team Chronic Disease Visit due on 07/17/2025 Diabetes Screening due on 07/12/2027 Lipid Screening due on 07/12/2029 Hepatitis C Screening Completed Colorectal Cancer Screening Discontinued RSV Vaccine Discontinued Shingrix Vaccine Discontinued Covid-19 Vaccine Discontinued Pneumococcal Vaccine: 50+ Discontinued ASSESSMENT/PLAN: 1. Hypertension, essential - ICD9: 401.9, ICD10: I10 - Controlled - Continue current medications - Recommend home blood pressure monitoring, to bring results to next visit - Encouraged sodium restriction, DASH or Mediterranean diet - Recommend regular aerobic exercise - Discussed need for and benefit of weight loss. BMI 24.14 kg/(m2) - LISINOPRIL 5 MG TABLET Rafaela Washington APRN.Rafaela Borrero APRN.[facility] 08/29/2024 9:29 AM Signed Addended by: RAFAELA WASHINGTON on: 08/29/2024 09:29 AM Modules accepted: Orders Rafaela Washington APRN.CNP 08/29/2024 9:42 AM Signed Addended by: RAFAELA WASHINGTON on: 08/29/2024 09:42 AM Modules accepted: Orders Allergies As of Date: 08/29/2024 (No Known Allergies) Date Rev (more content not included)... Normal [facility] CNOVon 07-17-2024 CNOV Office Visit (FAMPWS ) MARK BAIL,LIAM S ([id number]) 1950 F Date Time Provider Department 07/17/24 1:20 PM MARILYN HAIR During your visit today, we recorded the following information about you: Temperature Pulse Respiration Blood pressure 98.9 degrees 90/minute 14/minute 138/80 Weight 57.2 kg Marilyn Hair PA-C 07/17/2024 2:08 PM Signed Chief Complaint Patient presents with: Follow Up: 6 months HPI Liam King is a 73 year old female who presents here today for Chronic Medical Conditions.. Patient with hx as below. Patient is only taking 5mg of lisinopril. Isn't sure how she got off of the 10mg.. States that home readings are around 130-136/80-85. Concerns: Acid reflux for the past year. Doesn't take anything for this. Intermittent. 2-3 times a day. Magnesium? Tingling at night. Not every night. Past medical history, appointments, medications, allergies reviewed. Previous Medical History PAST MEDICAL HISTORY Diagnosis Date Age-related osteoporosis without current pathological fracture 01/06/2021 patient declines treatment beyond calcium and vit d as of 01/06/21. Repeat bone density in 2 years Arthritis of both knees 04/29/2020 Sever on right and moderate on left of medial joint spaces. Dyslipidemia 01/10/2024 Elevated fasting glucose 07/08/2019 Family history of thyroid disease 10/25/2016 Hemorrhage of rectum and anus 08/03/2005 Hypertension, essential 01/16/2022 Low serum vitamin B12 07/25/2023 Medicare annual wellness visit, subsequent 10/25/2016 last done: 10/25/2016 Pain in left knee 05/06/2015 Paresthesia 07/25/2023 Hands and Feet: 06/2023 B12 low so started on B12. If no improvement may need NCS/EMG's Renal cyst 11/26/2021 Varicose veins 05/06/2015 Previous Surgical History PAST SURGICAL HISTORY Procedure Laterality Date COLONOSCOPY 2005 COLONOSCOPY SCREENING 12/2022 FECAL OCCULT BLOOD TEST 11/08/2016 negative PAST SURGICAL HISTORY OF 1977 varicose veins stripped bilateral. PAST SURGICAL HISTORY OF sclerotherapy several times PAST SURGICAL HISTORY OF 2007 anterior vaginal repair prolapse TOTAL KNEE REPLACEMENT Left 12/2023 Family History FAMILY HISTORY Problem Relation Age of Onset Cancer Mother smoker Thyroid Mother Alzheimer's Disease Father Heart disease Sister Stroke Maternal Grandfather Diabetes Paternal Grandmother Patient Allergies ALLERGIES No Known Allergies Current Medications Current Outpatient Medications on File Prior to Visit Medication Sig lisinopril (ZESTRIL) 10 mg tablet Take 1 tablet by mouth once daily. lisinopril (ZESTRIL) 5 mg tablet Take 1 tablet by mouth once daily. Take with the 10mg for total dose of 15mg daily celecoxib (CELEBREX) 200 mg capsule Take 1 capsule by mouth once daily. cyanocobalamin (VITAMIN B-12) 1,000 mcg tab Take 1,000 mcg by mouth once daily. Cholecalciferol, Vitamin D3, 1,000 unit cap Take 2,000 Units by mouth once daily. No current facility-administered medications on file prior to visit. Social History Social History Tobacco Use Smoking status: Never Smokeless tobacco: Never Vaping Use Vaping status: Never Used Substance Use Topics Alcohol use: Yes Comment: ocassional wine Drug use: Never Review of Symptoms REVIEW OF SYSTEMS GENERAL: No weight loss, malaise or fevers NECK: Negative for lumps, goiter, pain and significant neck swelling RESPIRATORY: Negative for cough, hemoptysis, wheezing, COPD, dyspnea or shortness of breath CARDIOVASCULAR: Negative for chest pain, leg swelling, hypertension, CHF or palpitations NEURO: No history of headaches, syncope, paralysis, seizures or tremors EXAM: BP 138/80 Pulse 90 Temp 37.2 ?C (98.9 ?F) Resp 14 Wt 57.2 kg (126 lb) SpO2 96% BMI 24.20 kg/m? General Appearance: Well appearing, alert, in no acute distress, well-hydrated, well nourished.. Neck: Supple, no adenopathy; thyroid symmetric, normal size, no bruits. Lungs: Lungs clear to auscultation. No wheezing, rhonchi, rales.. Heart: RRR without murmur, gallop, or rubs. No ectopy. Extremities: No deformities, edema, skin discoloration, clubbing or cyanosis. Good capillary refill. . Peripheral Pulses: Normal. Health Maintenance List BP Controlled (<130/80) Never done Bone Density Screening due on 12/21/2022 Advance Directive Discussion due on 05/29/2024 Mammogram Screening due on 06/22/2024 Cervical Cancer Screening due on 07/10/2024 Influenza Vaccine(1) due on 11/25/2024 DTaP,Tdap,Td Vaccine(2 - Td or Tdap) due on 12/01/2024 Depression Screening due on 01/09/2025 Anxiety Screening due on 01/09/2025 Annual PCP Team Chronic Disease Visit due on 07/17/2025 Diabetes Screening due on 07/12/2027 Lipid Screening due on 07/12/2029 Hepatitis C Screening Completed Colorectal Cancer Screening Disco (more content not included)... Normal [facility] Urinalysis complete panel (U )on 07-17-2024 Bacteria LM.HPF (Urine sed) [#/Area] Negative Normal Negative [facility] Comment on above: Order Comment: Speci men Type: URINE SPECIMENOrdering Facility: [facility] Address: [address] [place] [address] Performed By: #### 2 4356-8 ####[facility] LABCLIA [id number] [place] [address] [place] Bilirubin Ql (U) Negative Normal Negative [facility] Comment on above: Order Comment: Speci men Type: URINE SPECIMENOrdering Facility: [facility] Address: [address] [place] [address] Performed By: #### 2 4356-8 ####[facility] LABCLIA [id number] [place] [address] [place] CALCIUM OXALATE CRYSTALS (UA) Few Abnormal None Seen [facility] Comment on above: Order Comment: Speci men Type: URINE SPECIMENOrdering Facility: [facility] Address: [address] [place] [address] Performed By: #### 2 4356-8 ####[facility] LABCLIA [id number] [place] [address] [place] Clarity (Unsp spec) Clear Normal Clear [facility] Comment on above: Order Comment: Speci men Type: URINE SPECIMENOrdering Facility: [facility] Address: [address] [place], [place] [address] Performed By: #### 2 4356-8 ####[facility] LABCLIA [id number] [place] [address] [place] Color (U) Yellow Normal Yellow [facility] Comment on above: Order Comment: Speci men Type: URINE SPECIMENOrdering Facility: [facility] Address: [address] [place] [address] Performed By: #### 2 4356-8 ####[facility] LABCLIA [id number] [place] [address] [place] Epithelial cells LM.HPF (Urine sed) [#/Area] Few Normal [facility] Comment on above: Order Comment: Speci men Type: URINE SPECIMENOrdering Facility: [facility] Address: [address] [place] [address] Performed By: #### 2 4356-8 ####[facility] LABCLIA [id number] [place] [address] [place] Glucose Test strip (U) [Mass/Vol] Negative Normal Negative [facility] Comment on above: Order Comment: Speci men Type: URINE SPECIMENOrdering Facility: [facility] Address: [address] [place] [address] Performed By: #### 2 4356-8 ####[facility] LABIA [id number] [place] [address] [place] Hemoglobin Ql (U) Negative Normal Negative [facility] Comment on above: Order Comment: Speci men Type: URINE SPECIMENOrdering Facility: [facility] Address: [address] [place] [address] Performed By: #### 2 4356-8 ####[facility] LABCLIA [id number] [place] [address] [place] Hyaline casts (Urine sed) [#/Area] 0 /[LPF] Normal 0 /LPF [facility] Comment on above: Order Comment: Speci men Type: URINE SPECIMENOrdering Facility: [facility] Address: [address] [place] [address] Performed By: #### 2 4356-8 ####[facility] LABCLIA [id number] [place] [address] [place] Ketones Ql (U) Negative Normal Negative [facility] Comment on above: Order Comment: Speci men Type: URINE SPECIMENOrdering Facility: [facility] Address: [address] [place] [address] Performed By: #### 2 4356-8 ####[facility] LABCLIA [id number] [place] [address] [place] Leukocyte esterase Test strip Ql (U) Negative Normal Negative [facility] Comment on above: Order Comment: Speci men Type: URINE SPECIMENOrdering Facility: [facility] Address: [address] [place] [address] Performed By: #### 2 4356-8 ####[facility] LABCLIA [id number] [place] [address] [place] Nitrite Ql (U) Negative Normal Negative [facility] Comment on above: Order Comment: Speci men Type: URINE SPECIMENOrdering Facility: [facility] Address: [address] [place] [address] Performed By: #### 2 4356-8 ####[facility] LABCLIA [id number] [place] [address] [place] pH (U) 5.5 [pH] Normal <8.5 [facility] Comment on above: Order Comment: Speci men Type: URINE SPECIMENOrdering Facility: [facility] Address: [address] [place] [address] Performed By: #### 2 4356-8 ####[facility] LABCLIA [id number] [place] [address] [place] Protein (U) [Mass/Vol] Negative Normal Negative [facility] Comment on above: Order Comment: Speci men Type: URINE SPECIMENOrdering Facility: [facility] Address: [address] [place] [address] Performed By: #### 2 4356-8 ####[facility] [id number] [place] [address] [place] RBC LM.HPF (Urine sed) [#/Area] 3-5 /HPF Abnormal 0-2 /HPF [facility] Comment on above: Order Comment: Speci men Type: URINE SPECIMENOrdering Facility: [facility] Address: [address] [place] [address] Performed By: #### 2 4356-8 ####[facility] [id number] [place] [address] [place] Specific gravity (U) [Rel density] 1.027 Normal 1.005-1.030 [facility] Comment on above: Order Comment: Speci men Type: URINE SPECIMENOrdering Facility: [facility] Address: [address] [place] [address] Performed By: #### 2 4356-8 ####[facility] [id number] [place] [address] [place] Urobilinogen Ql (U) 1.0 EU/dL Normal 0.2-1.0 EU/dL [facility] Comment on above: Order Comment: Speci men Type: URINE SPECIMENOrdering Facility: [facility] Address: [address] [place] [address] Performed By: #### 2 4356-8 ####[facility] [id number] [place] [address] [place] WBC LM.HPF (Urine sed) [#/Area] 0-5 /HPF Normal 0-5 /HPF [facility] Comment on above: Order Comment: Speci men Type: URINE SPECIMENOrdering Facility: [facility] Address: [address] [place] [address] Performed By: #### 2 4356-8 ####[facility] LABCLIA [id number] [place] [address] [place] CBC W Auto Differential pane l (Bld)on 07-12-2024 Basophils (Bld) [#/Vol] 0.07 10*3/uL [facility] Basophils/100 WBC (Bld) 1.2 % [facility] Differential cell count method Nom (Bld) Auto [facility] Eosinophils (Bld) [#/Vol] 0.08 10*3/uL [facility] Eosinophils/100 WBC (Bld) 1.4 % [facility] Erythrocyte distribution width (RBC) [Ratio] 13.5 % 11.5 - 15.0 % [facility] Hematocrit (Bld) [Volume fraction] 47.3 % High 36.0 - 46.0 % [facility] Hemoglobin (Bld) [Mass/Vol] 15.5 g/dL 11.5 - 15.5 g/dL [facility] Immature granulocytes (Bld) [#/Vol] [facility] Immature granulocytes/100 WBC (Bld) 0.4 % [facility] Interpretation and review of laboratory results Abnormal [facility] Lymphocytes (Bld) [#/Vol] 1.48 10*3/uL [facility] Lymphocytes/100 WBC (Bld) 26.3 % [facility] MCH (RBC) [Entitic mass] 30 pg 26.0 - 34.0 pg [facility] MCHC (RBC) [Mass/Vol] 32.8 g/dL 30.5 - 36.0 g/dL [facility] MCV (RBC) [Entitic vol] 91.7 fL 80.0 - 100.0 fL [facility] Monocytes (Bld) [#/Vol] 0.47 10*3/uL [facility] Monocytes/100 WBC (Bld) 8.4 % [facility] Neutrophils (Bld) [#/Vol] 3.5 10*3/uL [facility] Neutrophils/100 WBC (Bld) 62.3 % [facility] Nucleated RBC (Bld) [#/Vol] [facility] Nucleated RBC/100 WBC (Bld) [Ratio] 0 % /100 WBC [facility] Platelet mean volume (Bld) [Entitic vol] 11 fL 9.0 - 12.7 fL [facility] Platelets (Bld) [#/Vol] 215 10*3/uL [facility] RBC (Bld) [#/Vol] 5.16 10*6/uL 3.90 - 5.2 0 m/uL [facility] WBC (Bld) [#/Vol] 5.62 10*3/uL [facility] Basophils (Bld) [#/Vol] 0.07 10*3/uL Normal <0.11 [facility] Comment on above: Order Comment: Speci men Type: BLOOD SPECIMENOrdering Facility: [facility] Address: [address] [place] [address] Performed By: #### 5 7021-8 ####[facility] [id number] [place] [address] [place] Basophils/100 WBC (Bld) 1.2 % Normal [facility] Comment on above: Order Comment: Speci men Type: BLOOD SPECIMENOrdering Facility: [facility] Address: [address] [place] [address] Performed By: #### 5 7021-8 ####[facility] [id number] [place] [address] [place] Differential cell count method Nom (Bld) Auto Normal [facility] Comment on above: Order Comment: Speci men Type: BLOOD SPECIMENOrdering Facility: [facility] Address: [address] [place] [address] Performed By: #### 5 7021-8 ####[facility] [id number] [place] [address] [place] Eosinophils (Bld) [#/Vol] 0.08 10*3/uL Normal <0.46 [facility] Comment on above: Order Comment: Speci men Type: BLOOD SPECIMENOrdering Facility: [facility] Address: [address] [place] [address] Performed By: #### 5 7021-8 ####[facility] MILLWNCLIA [id number] [place] [address] [place] Eosinophils/100 WBC (Bld) 1.4 % Normal [facility] Comment on above: Order Comment: Speci men Type: BLOOD SPECIMENOrdering Facility: [facility] Address: [address] [place] [address] Performed By: #### 5 7021-8 ####[facility] CAMPUSADALBERTOLIA [id number] [place] [address] [place] Erythrocyte distribution width (RBC) [Ratio] 13.5 % Normal 11.5-15.0 [facility] Comment on above: Order Comment: Speci men Type: BLOOD SPECIMENOrdering Facility: [facility] Address: [address] [place] [address] Performed By: #### 5 7021-8 ####[facility]ENTERL[facility] [id number] [place] [address] [place] Hematocrit (Bld) [Volume fraction] 47.3 % High 36.0-46.0 [facility] Comment on above: Order Comment: Speci men Type: BLOOD SPECIMENOrdering Facility: [facility] Address: [address] [place] [address] Performed By: #### 5 7021-8 ####[facility] HOSPITALWNCLIA [id number] [place] [address] [place] Hemoglobin (Bld) [Mass/Vol] 15.5 g/dL Normal 11.5-15.5 [facility] Comment on above: Order Comment: Speci men Type: BLOOD SPECIMENOrdering Facility: [facility] Address: [address] [place] [address] Performed By: #### 5 7021-8 ####[facility] CAMPUSNCLIA [id number] [place] [address] [place] Immature granulocytes (Bld) [#/Vol] 10*3/uL Normal <0.10 [facility] Comment on above: Order Comment: Speci men Type: BLOOD SPECIMENOrdering Facility: [facility] Address: [address] [place] [address] Performed By: #### 5 7021-8 ####[facility]ENTERLIA [id number] [place] [address] [place] Immature granulocytes/100 WBC (Bld) 0.4 % Normal [facility] Comment on above: Order Comment: Speci men Type: BLOOD SPECIMENOrdering Facility: [facility] Address: [address] [place] [address] Performed By: #### 5 7021-8 ####[facility] CAMPUSNCLI [id number] [place] [address] [place] Lymphocytes (Bld) [#/Vol] 1.48 10*3/uL Normal 1.00-4.00 [facility] Comment on above: Order Comment: Speci men Type: BLOOD SPECIMENOrdering Facility: [facility] Address: [address] [place] [address] Performed By: #### 5 7021-8 ####[facility]ENTERLIA [id number] [place] [address] [place] Lymphocytes/100 WBC (Bld) 26.3 % Normal [facility] Comment on above: Order Comment: Speci men Type: BLOOD SPECIMENOrdering Facility: [facility] Address: [address] [place] [address] Performed By: #### 5 7021-8 ####[facility] CAMPUSNCLIA [id number] [place] [address] [place] MCH (RBC) [Entitic mass] 30.0 pg Normal 26.0-34.0 [facility] Comment on above: Order Comment: Speci men Type: BLOOD SPECIMENOrdering Facility: [facility] Address: [address] [place] [address] Performed By: #### 5 7021-8 ####[facility] [id number] [place] [address] [place] MCHC (RBC) [Mass/Vol] 32.8 g/dL Normal 30.5-36.0 [facility] Comment on above: Order Comment: Speci men Type: BLOOD SPECIMENOrdering Facility: [facility] Address: [address] [place] [address] Performed By: #### 5 7021-8 ####[facility] CAMPUSAROLDO [id number] [place] [address] [place] MCV (RBC) [Entitic vol] 91.7 fL Normal 80.0-100.0 [facility] Comment on above: Order Comment: Speci men Type: BLOOD SPECIMENOrdering Facility: [facility] Address: [address] [place] [address] Performed By: #### 5 7021-8 ####[facility] CAMPUSAROLDO [id number] [place] [address] [place] Monocytes (Bld) [#/Vol] 0.47 10*3/uL Normal <0.87 [facility] Comment on above: Order Comment: Speci men Type: BLOOD SPECIMENOrdering Facility: [facility] Address: [address] [place] [address] Performed By: #### 5 7021-8 ####[facility] CAMPUSNCLIA [id number] [place] [address] [place] Monocytes/100 WBC (Bld) 8.4 % Normal [facility] Comment on above: Order Comment: Speci men Type: BLOOD SPECIMENOrdering Facility: [facility] Address: [address] [place] [address] Performed By: #### 5 7021-8 ####[facility] MILLTOWNCLIA [id number] [place] [address] [place] Neutrophils (Bld) [#/Vol] 3.50 10*3/uL Normal 1.45-7.50 [facility] Comment on above: Order Comment: Speci men Type: BLOOD SPECIMENOrdering Facility: [facility] Address: [address] [place] [address] Performed By: #### 5 7021-8 ####[facility] CENTERLIA [id number] [place] [address] [place] Neutrophils/100 WBC (Bld) 62.3 % Normal [facility] Comment on above: Order Comment: Speci men Type: BLOOD SPECIMENOrdering Facility: [facility] Address: [address] [place] [address] Performed By: #### 5 7021-8 ####[facility] CENTERLIA [id number] [place] [address] [place] Nucleated RBC (Bld) [#/Vol] 10*3/uL Normal <0.01 [facility] Comment on above: Order Comment: Speci men Type: BLOOD SPECIMENOrdering Facility: [facility] Address: [address] [place] [address] Performed By: #### 5 7021-8 ####[facility] CENTERLIA [id number] [place] [address] [place] Nucleated RBC/100 WBC (Bld) [Ratio] 0.0 /100 WBC Normal [facility] Comment on above: Order Comment: Speci men Type: BLOOD SPECIMENOrdering Facility: [facility] Address: [address] [place] [address] Performed By: #### 5 7021-8 ####[facility] CAMPUSNCLIA [id number] [place] [address] [place] Platelet mean volume (Bld) [Entitic vol] 11.0 fL Normal 9.0-12.7 [facility] Comment on above: Order Comment: Speci men Type: BLOOD SPECIMENOrdering Facility: [facility] Address: [address] [place] [address] Performed By: #### 5 7021-8 ####[facility] CHELOElyssaNCROBERTOA [id number] [place] [address] [place] Platelets (Bld) [#/Vol] 215 10*3/uL Normal 150-400 [facility] Comment on above: Order Comment: Speci men Type: BLOOD SPECIMENOrdering Facility: [facility] Address: [address] [place] [address] Performed By: #### 5 7021-8 ####[facility] CAMPUSNCLIA [id number] [place] [address] [place] RBC (Bld) [#/Vol] 5.16 10*6/uL Normal 3.90-5.20 [facility] Comment on above: Order Comment: Speci men Type: BLOOD SPECIMENOrdering Facility: [facility] Address: [address] [place] [address] Performed By: #### 5 7021-8 ####[facility] CAMPUSNCLIA [id number] [place] [address] [place] WBC (Bld) [#/Vol] 5.62 10*3/uL Normal 3.70-11.00 [facility] Comment on above: Order Comment: Speci men Type: BLOOD SPECIMENOrdering Facility: [facility] Address: [address] [place] [address] Performed By: #### 5 7021-8 ####[facility] HOSPITALWNCLIA [id number] [place] [address] [place] CNPNon 07-12-2024 CNPN Telephone ([facility]) LIAM SMITH ([id number]) 1950 F Date Time Provider Department 07/12/[address] [facility] During your visit today, we recorded the following information about you: Michael Wetzel MA 07/12/2024 8:11 AM Signed Patient is here for labs. Needs orders. EB Holden Danielle, APRN.DIVER HELPER 07/12/2024 9:31 AM Signed Labs ordered. Shraddha Lanza RN 07/12/2024 10:11 AM Signed Called and left a detailed voicemail notifying patient of providers message. Clinic phone number was left in case patient had any questions. Shraddha Lanza RN Allergies As of Date: 07/12/2024 (No Known Allergies) Date Reviewed: 01/10/2024 Reviewed by: Bhanu Meng MD - Fully Assessed Reason for Visit: Appointment [186] Primary Visit Diagnosis:Low serum vitamin B12 [E53.8] Other Visit Diagnoses:Elevated fasting glucose [R73.01] Dyslipidemia [E78.5] Hypertension, essential [I10] Medication management [Z79.899] Order(s):COMPLETE BLOOD COUNT AND DIFFERENTIAL [SQCBCDIF] Order #: [id number] FUTURE COMPREHENSIVE METABOLIC PANEL [SQCMP] Order #: [id number] FUTURE HEMOGLOBIN A1C [FPJHD6Z] Order #: [id number] FUTURE URINALYSIS, WITH MICROSCOPIC [SQUAWMIC] Order #: [id number] FUTURE THYROID STIMULATING HORMONE [SQTSH] Order #: [id number] FUTURE VITAMIN B12 [SQB12] Order #: [id number] FUTURE Prescriptions as of 07/12/2024 - lisinopril (ZESTRIL) 10 mg tablet Take 1 tablet by mouth once daily. - lisinopril (ZESTRIL) 5 mg tablet Take 1 tablet by mouth once daily. Take with the 10mg for total dose of 15mg daily - celecoxib (CELEBREX) 200 mg capsule Take 1 capsule by mouth once daily. - cyanocobalamin (VITAMIN B-12) 1,000 mcg tab Take 1,000 mcg by mouth once daily. - Cholecalciferol, Vitamin D3, 1,000 unit cap Take 2,000 Units by mouth once daily. Problem List As Of Date 07/12/2024 Noted Resolved Encounter for gynecological examination without*05/06/2015 Varicose veins [I83.90] 05/06/2015 Pain in left knee [M25.562] 05/06/2015 Left arm pain [M79.602] 05/06/2015 Family history of thyroid disease [Z83.49] 10/25/2016 Medicare annual wellness visit, subsequent [Z00*10/25/2016 Colon cancer screening [Z12.11] 10/25/2016 Encounter for screening for diabetes mellitus [*06/17/2019 Elevated fasting glucose [R73.01] 07/08/2019 Arthritis of both knees [M17.0] 04/29/2020 Age-related osteoporosis without current pathol*01/06/2021 Advance directive discussed with patient [Z71.8*11/23/2021 Renal cyst [N28.1] 11/26/2021 Hypertension, essential [I10] 01/16/2022 Paresthesia [R20.2] 07/25/2023 Medication management [Z79.899] 07/25/2023 Low serum vitamin B12 [E53.8] 07/25/2023 Dyslipidemia [E78.5] 01/10/2024 Encounter Status:Closed by SHRADDHA LANZA on 07/12/24 Normal [facility] Comprehensive metabolic 2000 panelOrdered By: Jayna Ravi on 07-12-2024 Albumin [Mass/Vol] 4.5 g/dL 3.9 - 4.9 g/dL [facility] ALP [Catalytic activity/Vol] 90 U/L 34 - 123 U/L [facility] ALT [Catalytic activity/Vol] 11 U/L 7 - 38 U/L [facility] Anion gap [Moles/Vol] 10 mmol/L 8 - 15 mmol/L [facility] AST [Catalytic activity/Vol] 20 U/L 13 - 35 U/L [facility] Bilirubin [Mass/Vol] 0.6 mg/dL 0.2 - 1 .3 mg/dL [facility] Calcium [Mass/Vol] 10 mg/dL 8.5 - 10. 2 mg/dL [facility] Chloride [Moles/Vol] 107 mmol/L 98 - 10 7 mmol/L [facility] CO2 [Moles/Vol] 24 mmol/L 22 - 30 mmol/L [facility] Creatinine [Mass/Vol] 0.71 mg/dL 0.58 - 0.96 mg/dL [facility] GFR/1.73 sq M.predicted among non-blacks MDRD (S/P/Bld) [Vol rate/Area] 90 mL/min/{1.73_m2} - PINF [facility] Comment on above: Estimated Glomerular Filtration Rate (eGFR) is calculated using the 2020 CKD-EPI creatinine equation. This equation utilizes serum creatinine, sex, and age as parameters. The creatinine assay has traceable calibration to isotope dilution-mass spectrometry. Refer to KDIGO guidelines for clinical interpretation. In patients with unstable renal function, e.g. those with acute kidney injury, the eGFR may not accurately reflect actual GFR. Glucose [Mass/Vol] 99 mg/dL 74 - 99 mg/dL [facility] Comment on above: The [place] Diabete s Association (ADA) provides guidance for cutoff values for fasting glucose and random glucose. The ADA defines fasting as no caloric intake for at least 8 hours. Fasting plasma glucose results between 100 to 125 mg/dL indicate increased risk for diabetes (prediabetes). Fasting plasma glucose results greater than or equal to 126 mg/dL meet the criteria for diagnosis of diabetes. In the absence of unequivocal hyperglycemia, results should be confirmed by repeat testing. In a patient with classic symptoms of hyperglycemia or hyperglycemic crisis, random plasma glucose results greater than or equal to 200 mg/dL meet the criteria for diagnosis of diabetes. Reference: Standards of Medical Care in Diabetes 2016, [employer] Diabetes Association. Diabetes Care. 2016.39(Suppl 1). Interpretation and review of laboratory results Normal [facility] Potassium [Moles/Vol] 4.1 mmol/L 3.7 - 5.1 mmol/L [facility] Protein [Mass/Vol] 7.3 g/dL 6.3 - 8.0 g/dL [facility] Sodium [Moles/Vol] 141 mmol/L 136 - 144 mmol/L [facility] Urea nitrogen [Mass/Vol] 18 mg/dL 7 - 21 mg/dL [facility] Comprehensive metabolic 2000 panelon 07-12-2024 Albumin [Mass/Vol] 4.5 g/dL Normal 3.9-4.9 [facility] Comment on above: Order Comment: Speci men Type: BLOOD SPECIMENOrdering Facility: [facility] Address: [address] [place] [address] Performed By: #### 2 4323-8 ####[facility] MILLTOWNCLIA [id number] [place] [address] [place]#### 3016-3, 2132-01 ####[facility] LABCLIA [id number] [place] [address] [place] ALP [Catalytic activity/Vol] 90 U/L Normal 34-123 [facility] Comment on above: Order Comment: Speci men Type: BLOOD SPECIMENOrdering Facility: [facility] Address: [address] [place], [place] [address] Performed By: #### 2 4323-8 ####[facility] MILLTOWNCLIA [id number] [place] [address] [place]#### 3016-3, 2132-01 ####[facility] LABCLIA [id number] [place] [address] [place] ALT [Catalytic activity/Vol] 11 U/L Normal 7-38 [facility] Comment on above: Order Comment: Speci men Type: BLOOD SPECIMENOrdering Facility: [facility] Address: [facility] [place] [address] Performed By: #### 2 4323-8 ####[facility] MILLTOWNCLIA [id number] [place] [address] [place]#### 3016-3, 2132-01 ####[facility] LABCLIA [id number] [place] [id number] [place] Anion gap [Moles/Vol] 10 mmol/L Normal 8-15 [facility] Comment on above: Order Comment: Speci men Type: BLOOD SPECIMENOrdering Facility: [facility] Address: [address] [place] [address] Performed By: #### 2 4323-8 ####[facility] MILLTOWNCLIA [id number] [place] [address] [place]#### 3016-3, 2132-01 ####[facility] LABCLIA [id number] [place] [address] [place] AST [Catalytic activity/Vol] 20 U/L Normal 13-35 [facility] Comment on above: Order Comment: Speci men Type: BLOOD SPECIMENOrdering Facility: [facility] Address: [address] [place] [address] Performed By: #### 2 4323-8 ####[facility] MILLTOWNCLIA [id number] [place] [address] [place]#### 3016-3, 2132-01 ####[facility] LABCLIA [id number] [place] [address] [place] Bilirubin [Mass/Vol] 0.6 mg/dL Normal 0.2-1.3 [facility] Comment on above: Order Comment: Speci men Type: BLOOD SPECIMENOrdering Facility: [facility] Address: [address] [place] [id number] Performed By: #### 2 4323-8 ####[facility] MILLTOWNCLIA [id number] [place] [address] [place]#### 3016-3, 2132-01 ####[facility] LABCLIA [id number] [address] [address] [place] Calcium [Mass/Vol] 10.0 mg/dL Normal 8.5-10.2 [facility] Comment on above: Order Comment: Speci men Type: BLOOD SPECIMENOrdering Facility: [facility] Address: [address] [place] [id number] Performed By: #### 2 4323-8 ####[facility] MILLTOWNCLIA [id number] [place] [address] [place]#### 3016-3, 2132-01 ####[facility] LABCLIA [id number] [place] [address] [place] Chloride [Moles/Vol] 107 mmol/L Normal 98-107 [facility] Comment on above: Order Comment: Speci men Type: BLOOD SPECIMENOrdering Facility: [facility] Address: [address] [place] [id number] Performed By: #### 2 4323-8 ####[facility] MILLTOWNCLIA [id number] [place] [address] [place]#### 3016-3, 2132-01 ####[facility] LABCLIA [id number] [place] [id number] [place] CO2 [Moles/Vol] 24 mmol/L Normal 22-30 [facility] Comment on above: Order Comment: Speci men Type: BLOOD SPECIMENOrdering Facility: [facility] Address: [address] [place] [address] Performed By: #### 2 4323-8 ####[facility] MILLTOWNCLIA [id number] [place] [address] [place]#### 3016-3, 2132-01 ####[facility] LABCLIA [id number] [place] [id number] [place] Creatinine [Mass/Vol] 0.71 mg/dL Normal 0.58-0.96 [facility] Comment on above: Order Comment: Paul brown Type: BLOOD SPECIMENOrdering Facility: [facility] Address: [address] [place] [address] Performed By: #### 2 4323-8 ####[facility] [id number] [address] OF [place]#### 3016-3, 2132-01 ####[facility] LABCLIA [id number] [address] Creatinine and Glomerular filtration rate.predicted panel (S/P/Bld) 90 mL/min/1.73m??? Normal >=60 [facility] Comment on above: Order Comment: Paul brown Type: BLOOD SPECIMENOrdering Facility: [facility] Address: [address] [place] [address] Result Comment: Davide mated Glomerular Filtration Rate (eGFR) is calculated using the 2020 CKD-EPI creatinine equation. This equation utilizes serum creatinine, sex, and age as parameters. The creatinine assay has traceable calibration to isotope dilution-mass spectrometry. Refer to KDIGO guidelines for clinical interpretation. In patients with unstable renal function, e.g. those with acute kidney injury, the eGFR may not accurately reflect actual GFR. Performed By: #### 2 4323-8 ####[facility] [id number] [place] [address] [place]#### 3016-3, 2132-01 ####[facility] LABCLIA [id number] [place] [address] [place] Glucose [Mass/Vol] 99 mg/dL Normal 74-99 [facility] Comment on above: Order Comment: Sparklei stephanie Type: BLOOD SPECIMENOrdering Facility: [facility] Address: [address] [place] [address] Result Comment: The [place] Diabetes Association (ADA) provides guidance for cutoff values for fasting glucose and random glucose. The ADA defines fasting as no caloric intake for at least 8 hours. Fasting plasma glucose results between 100 to 125 mg/dL indicate increased risk for diabetes (prediabetes). Fasting plasma glucose results greater than or equal to 126 mg/dL meet the criteria for diagnosis of diabetes. In the absence of unequivocal hyperglycemia, results should be confirmed by repeat testing. In a patient with classic symptoms of hyperglycemia or hyperglycemic crisis, random plasma glucose results greater than or equal to 200 mg/dL meet the criteria for diagnosis of diabetes. Reference: Standards of Medical Care in Diabetes 2016, [employer] Diabetes Association. Diabetes Care. 2016.39(Suppl 1). Performed By: #### 2 4323-8 ####[facility] CENTERLIA [id number] [place] [address] [place]#### 3016-3, 2132-01 ####[facility] LABCLIA [id number] [place] [address] [place] Potassium [Moles/Vol] 4.1 mmol/L Normal 3.7-5.1 [facility] Comment on above: Order Comment: Speci men Type: BLOOD SPECIMENOrdering Facility: [facility] Address: [address] [place] [address] Performed By: #### 2 4323-8 ####[facility] CENTERLIA [id number] [place] [address] [place]#### 3016-3, 2132-01 ####[facility] LABCLIA [id number] [address] [address] [place] Protein [Mass/Vol] 7.3 g/dL Normal 6.3-8.0 [facility] Comment on above: Order Comment: Speci men Type: BLOOD SPECIMENOrdering Facility: [facility] Address: [address] [place] [address] Performed By: #### 2 4323-8 ####[facility]ENTERLIA [id number] [place] [address] [place]#### 3016-3, 2132-01 ####[facility] LAB[facility] [id number] [address] [address] [place] Sodium [Moles/Vol] 141 mmol/L Normal 136-144 [facility] Comment on above: Order Comment: Speci men Type: BLOOD SPECIMENOrdering Facility: [facility] Address: [address] [place] [address] Performed By: #### 2 4323-8 ####[facility] BEACHA [id number] [place] [address] [place]#### 3016-3, 2132-01 ####[facility] LABCL[facility] [id number] [place] [address] [place] Urea nitrogen [Mass/Vol] 18 mg/dL Normal 7-21 [facility] Comment on above: Order Comment: Speci men Type: BLOOD SPECIMENOrdering Facility: [facility] Address: [address] [place] [address] Performed By: #### 2 4323-8 ####[facility]ENTERLIA [id number] [place] [address] [place]#### 3016-3, 2132-01 ####[facility] [id number] [place] [address] [place] HbA1c (Bld)on 07-12-2024 Average glucose Estimated from glycated hemoglobin (Bld) [Mass/Vol] 117 mg/dL Normal [facility] Comment on above: Order Comment: Speci men Type: BLOOD SPECIMENOrdering Facility: [facility] Address: [address] [place], [place] [address] Result Comment: eAG: (Estimated average glucose) is a calculated value from HgbA1c and is operations representative of the average blood glucose level in the last 2-3 month period. Performed By: #### 5 5454-3 ####[facility] LAB[facility] [id number] [place] [address] [place] HbA1c (Bld) [Mass fraction] 5.7 % High 4.3-5.6 [facility] Comment on above: Order Comment: Paul brown Type: BLOOD SPECIMENOrdering Facility: [facility] Address: [address] [place] [address] Result Comment: Amer ican Diabetes Association guidelines indicate that patients with HgbA1c in the range 5.7-6.4% are at increased risk for development of diabetes, and intervention by lifestyle modification may be beneficial. HgbA1c greater or equal to 6.5% is considered diagnostic of diabetes. Performed By: #### 5 5454-3 ####[facility] [id number] [address] OF [facility] LIPID PANEL, NONFASTINGon Cholesterol [Mass/Vol] 194 mg/dL Normal <200 [facility] Comment on above: Order Comment: Paul brown Type: BLOOD SPECIMENOrdering Facility: [facility] Address: [address] [place] [address] Result Comment: <200 mg/dL, Desirable 200-239 mg/dL, Borderline high >239 mg/dL, High Performed By: #### L IPNF ####[facility]ATORYCLIA [id number] [address] OF [facility] HDL CHOLESTEROL, NF 41 mg/dL Normal >39 [facility] Comment on above: Order Comment: Paul brown Type: BLOOD SPECIMENOrdering Facility: [facility] Address: [address] [place] [address] Result Comment: 40-5 9 mg/dL, Acceptable >59 mg/dL, High: Negative risk factor for coronary heart disease <40 mg/dL, Low: Positive risk factor for coronary heart disease Performed By: #### L IPNF ####[facility]ST[facility] LABORATORYCLIA [id number] [address] STATES OF [facility] LDL CHOLESTEROL, NF 124 mg/dL High <100 [facility] Comment on above: Order Comment: Sparklejaylan brown Type: BLOOD SPECIMENOrdering Facility: [facility] Address: [address] [place] [address] Result Comment: <100 mg/dL, Optimal 100-129 mg/dL, Near optimal/above optimal 130-159 mg/dL, Borderline high 160-189 mg/dL, High >189 mg/dL, Very high Secondary prevention optimal LDL Cholesterol levels are recommended to be < 70 mg/dL Performed By: #### L IPNF ####[facility]ATORYCLIA [id number] [address] OF [facility] LDL/HDL RATIO, NF 3.02 mg/dL High <2.54 [facility] Comment on above: Order Comment: Paul stephanie Type: BLOOD SPECIMENOrdering Facility: [facility] Address: [address] [place] [address] Result Comment: Refe rence: 1. National Cholesterol Education Program ATP III Guideline At-A-Glance Quick Desk Reference: National Heart, Lung, and Blood [place]. National Institutes of Health. 2001: NIH Publication No. 01-3305. 2. An International Atherosclerosis Society position paper: global recommendations for the management of dyslipidemia: executive summary, Atherosclerosis. 2014: 232(2):410-413. Performed By: #### L IPNF ####[facility]ATORYCLIA [id number] [address] OF [facility] NON HDL CHOL, NF 153 mg/dL High <130 [facility] Comment on above: Order Comment: Sparklejaylan brown Type: BLOOD SPECIMENOrdering Facility: [facility] Address: [address] [place] [address] Result Comment: <130 mg/dL, Optimal 130-159 mg/dL, Near optimal/above optimal 160-189 mg/dL, Borderline high 190-219 mg/dL, High >219 mg/dL, Very high Secondary prevention optimal non HDL Cholesterol levels are recommended to be <100 mg/dL Performed By: #### L IPNF ####[facility]ATORYCLIA [id number] [place] [address] [place] T CHOL/HDL RATIO NF 4.73 mg/dL Normal <5.10 [facility] Comment on above: Order Comment: Speci men Type: BLOOD SPECIMENOrdering Facility: [facility] Address: [address] [place] [address] Performed By: #### L IPNF ####[facility]ATORYCLIA [id number] [place] [address] [place] TRIGLYCERIDES, NF 146 mg/dL Normal <150 [facility] Comment on above: Order Comment: Speci men Type: BLOOD SPECIMENOrdering Facility: [facility] Address: [address] [place] [address] Result Comment: <150 mg/dL, Normal 150-199 mg/dL, Borderline high 200-499 mg/dL, High >499 mg/dL, Very high Performed By: #### L IPNF ####[facility]ATORYCLIA [id number] [place] [address] [place] VLDL CHOLESTEROL, NF 29 mg/dL Normal <30 [facility] Comment on above: Order Comment: Speci men Type: BLOOD SPECIMENOrdering Facility: [facility] Address: [address] [place] [address] Performed By: #### L IPNF ####[facility]ATORYCLIA [id number] [place] [address] [place] TSH SerPl-aCncon 07-12-2024 TSH Qn 1.680 m[IU]/L Normal 0.270-4.200 [facility] Comment on above: Order Comment: Speci men Type: BLOOD SPECIMENOrdering Facility: [facility] Address: [address] [place] [address] Performed By: #### 2 4323-8 ####[facility] TONAMUSCOGEEHORACE [id number] [place] [address] [place]#### 3016-3, 2132-9 ####[facility] LABCLIA [id number] [place] [id number] [place] Vit B12 [facility] Hospitalon [facility]-2 025 Cobalamin (Vitamin B12) [Mass/Vol] 447 pg/mL Normal 232-1245 [facility] Comment on above: Order Comment: Speci men Type: BLOOD SPECIMENOrdering Facility: [facility] Address: [address] [place] [address] Performed By: #### 2 4323-8 ####[facility] [id number] [place] [address] [place]#### 3016-3, 2132-9 ####[facility] LAB[facility] [id number] [place] [id number] [place] FLUAV and FLUBV RNA MARGO+prob e Nom (Unsp spec)on 05-15-2024 FLUAV RNA MARGO+probe Ql (Resp) Not detected Not Detected [facility] FLUBV RNA MARGO+probe Ql (Resp) Not detected Not Detected [facility] This assay is an in vitro diagnostic multiplex nucleic acid amplification test for the detection and discrimination of Influenza A & B from nasopharyngeal specimens, and has been validated for use at [facility]. Negative results do not preclude Influenza A/B infections, and should not be used as the sole basis for diagnosis, treatment, or other management decisions. If Influenza A/B and RSV PCR results are negative, testing for Parainfluenza virus, Adenovirus and Metapneumovirus is routinely performed for [facility] pediatric oncology and intensive care inpatients, and is available on other patients by placing an add-on request. [facility] FLUAV RNA MARGO+probe Ql (Resp) Not detected Normal Not Detected [facility] Comment on above: Order Comment: This assay is an in vitro diagnostic multiplex nucleic acid amplification test for the detection and discrimination of Influenza A & B from nasopharyngeal specimens, and has been validated for use at [facility]. Negative results do not preclude Influenza A/B infections, and should not be used as the sole basis for diagnosis, treatment, or other management decisions. If Influenza A/B and RSV PCR results are negative, testing for Parainfluenza virus, Adenovirus and Metapneumovirus is routinely performed for [facility] pediatric oncology and intensive care inpatients, and is available on other patients by placing an add-on request. Performed By: #### 4 8509-4 #### MELVIN JACOBS ([id number]) [facility] ([facility]) [address] [place] [address] FLUBV RNA MARGO+probe Ql (Resp) Not detected Normal Not Detected [facility] Comment on above: Order Comment: This assay is an in vitro diagnostic multiplex nucleic acid amplification test for the detection and discrimination of Influenza A & B from nasopharyngeal specimens, and has been validated for use at [facility]. Negative results do not preclude Influenza A/B infections, and should not be used as the sole basis for diagnosis, treatment, or other management decisions. If Influenza A/B and RSV PCR results are negative, testing for Parainfluenza virus, Adenovirus and Metapneumovirus is routinely performed for [facility] pediatric oncology and intensive care inpatients, and is available on other patients by placing an add-on request. Performed By: #### 4 8509-4 #### MELVIN JACOBS ([id number]) [facility] ([facility]) [address] [place] [address] No Panel Informationon 05-15 Interpretation and review of laboratory results Normal [facility] SARS coronavirus 2 RNAon SARS-CoV-2 (COVID-19) RNA MARGO+probe Ql (Resp) Not detected Normal Not Detected [facility] Comment on above: Order Comment: This assay has received FDA Emergency Use Authorization (EUA) and is only authorized for the duration of time that circumstances exist to justify the authorization of the emergency use of in vitro diagnostic tests for the detection of SARS-CoV-2 virus and/or diagnosis of COVID-19 infection under section 564(b)(1) of the Act, 21 U.S.C. 360bbb-3(b)(1). This assay is an in vitro diagnostic nucleic acid amplification test for the qualitative detection of SARS-CoV-2 from nasopharyngeal specimens and has been validated for use at [facility]. Negative results do not preclude COVID-19 infections and should not be used as the sole basis for diagnosis, treatment, or other management decisions. Performed By: #### 9 4500-6 #### CHARLES ARLENE ([id number]) [facility] ([facility]) [address] [place] [address] SARS-CoV-2 (COVID-19) RNA NA A+probe Ql (Resp)on 05-15-2024 This assay has recei samantha FDA Emergency Use Authorization (EUA) and is only authorized for the duration of time that circumstances exist to justify the authorization of the emergency use of in vitro diagnostic tests for the detection of SARS-CoV-2 virus and/or diagnosis of COVID-19 infection under section 564(b)(1) of the Act, 21 U.S.C. 360bbb-3(b)(1). This assay is an in vitro diagnostic nucleic acid amplification test for the qualitative detection of SARS-CoV-2 from nasopharyngeal specimens and has been validated for use at [facility]. Negative results do not preclude COVID-19 infections and should not be used as the sole basis for diagnosis, treatment, or other management decisions. [facility] Sars-CoV-2 PCRon 05-15-2024 SARS-CoV-2 (COVID-19) RNA MARGO+probe Ql (Resp) Not detected Not Detected [facility] REPEAT ABO/RH (D) TYPINGon 0 01-17-2024 ABO and Rh group Nom (Bld ) Positive [facility] XR Knee - left 2 Viewson FINDINGS/IMPRESSION: 1. Left total knee prosthesis has been placed including a surgical drain. 2. Expected postoperative changes in the soft tissues. 3. Anatomic alignment. RADIOLOGY EXAM: XR KNEE LEFT 1 -2 VIEWS HISTORY: s/p TKA COMPARISON: 12/28/2023 left knee RADIOLOGY Dawood Medina, Trae Case MD - 01/17/2024 EXAM: XR KNEE LEFT 1-2 VIEWS HISTORY: s/p TKA COMPARISON: 12/28/2023 left knee IMPRESSION FINDINGS/IMPRESSION: 1. Left total knee prosthesis has been placed including a surgical drain. 2. Expected postoperative changes in the soft tissues. 3. Anatomic alignment. [facility] Radiology Study observation (narrative) [facility] XR Knee - left 2 ViewsOrdere d By: Trae Josestephy on 01-17-2024 [facility] Work Phone: CBC W/DIFF/PLT (EXTERNAL LAB SHERRI)on 01-04-2024 BASO ABSOLUTE 0.1 [facility] EOS ABSOLUTE 0.1 [facility] Immature Gran % [facility] IMMATURE GRANS ABSOLUTE [facility] LYMPHS ABSOLUTE 1.5 [facility] MCH 31.1 Pg 26.6 - 33 Pg [facility] MONOCYTES ABSOLUTE [facility] NEUTROPHILS ABSOLUTE 3.3 [facility] CBC, EDIF, PLATELETon 2023 ABSOLUTE BASOPHIL COUNT 0.1 10*3/uL 0.0 - 0.2 10*3/uL [facility] Differential cell count method Nom (Bld) AUTO DIFF % [facility] Eosinophils (Bld) [#/Vol] 0.1 10*3/uL 0.0 - 0.7 10*3/uL [facility] Lymphocytes (Bld) [#/Vol] 1.5 10*3/uL 1.2 - 3.4 10*3/uL [facility] MCH (RBC) [Entitic mass] 31.1 pg 26.0 - 35.0 PG [facility] Monocytes (Bld) [#/Vol] 0.5 10*3/uL 0.0 - 0.7 10*3/uL [facility] Neutrophils (Bld) [#/Vol] 3.3 10*3/uL 1.4 - 6.5 10*3/uL [facility] Platelet mean volume (Bld) [Entitic vol] 9.3 fL [facility] CMP (EXTERNAL)on 01-04-2024 Alk Phos Total 71 U/L 45 - 117 U/L [facility] Bili Total 0.9 mg/dL 0.2 - 1 mg/dL [facility] GFR 82 mL/MIN [facility] GFR AFR AMER 99 mL/MIN [facility] Glucose [Mass/Vol] 108 mg/dL Abnormal [facility] COMPREHENSIVE METABOLIC PANE Josh 01-04-2024 Albumin/Globulin [Mass ratio] 1.7 {ratio} RATIO [facility] ALP [Catalytic activity/Vol] 71 U/L [facility] Bilirubin [Mass/Vol] 0.9 mg/dL [facility] GFR COMMENT Average GFR for 70+ years old = 75. [facility] Comment on above: Chronic Kidney disea se, GFR = <60. Kidney failure, GFR = <15. The GFR estimate is not adjusted for extreme body surface area or acute process, nor has it been validated for women or ethnic groups other than and . GFR/1.73 sq M.predicted among blacks MDRD (S/P/Bld) [Vol rate/Area] 99 mL/min/{1.73_m2} ml/min/1.73s q.m [facility] GFR/1.73 sq M.predicted among non-blacks MDRD (S/P/Bld) [Vol rate/Area] 82 mL/min/{1.73_m2} ml/min/1.73s q.m [facility] Glucose post fast [Mass/Vol] 108 mg/dL High [facility] Comment on above: NORMAL <100 mg/dL PREDIABETES 101-126 mg/dL DIABETES 126 mg/dL or higher [facility] HEMOGLOBIN A1Con 01-04-2024 Glucose [Mass/Vol] 114 mg/dL [facility] Laboratory - Chemistry and C hemistry - challengeon 01-04-2024 Albumin [Mass/Vol] 4.3 G/dl [facility] ALT [Catalytic activity/Vol] 25 U/L 12 - 78 U/L [facility] AST [Catalytic activity/Vol] 32 U/L 8 - 37 U/L [facility] Calcium [Mass/Vol] 10.2 mg/dL Abnormal 8.5 - 10. 1 mg/dL [facility] Chloride [Moles/Vol] 111 mmol/L Abnormal [facility] Comment on above: Please note: Triglyc eride levels of 600mg/dL or higher may positively bias chloride results by approximately 2.1 mmol CO2 [Moles/Vol] 22 mmol/L [facility] Creatinine [Mass/Vol] 0.74 mg/dL [facility] Potassium [Moles/Vol] 4.5 mmol/L 3.5 - 5.1 mmol/L [facility] Protein [Mass/Vol] 6.9 g/dL [facility] Sodium [Moles/Vol] 140 mmol/L 136 - 145 mmol/L [facility] Urea nitrogen [Mass/Vol] 18 mg/dL [facility] Laboratory - Hematology and Cell countson 01-04-2024 HbA1c (Bld) [Mass fraction] 5.6 % 0 - 5.7 % [facility] Comment on above: NORMAL <5.7% PREDIABETES 5.7-6.4% DIABETES 6.5% OR HIGHER Basophils/100 WBC (Bld) 1.2 % [facility] Eosinophils/100 WBC (Bld) 2.0 % [facility] Erythrocyte distribution width (RBC) [Ratio] 13.1 % 12.3 - 15.4 % [facility] Hematocrit (Bld) [Volume fraction] 45.9 % 37.5 - 51.0 % [facility] Hemoglobin (Bld) [Mass/Vol] 15.4 g/dL 12.6 - 17.7 g/dL [facility] Lymphocytes/100 WBC (Bld) 28.1 % [facility] MCHC (RBC) [Mass/Vol] 33.5 g/dL 31.5 - 35.7 g/dL [facility] MCV (RBC) [Entitic vol] 92.7 fL 79 - 97 fL [facility] Monocytes/100 WBC (Bld) 8.3 % [facility] Neutrophils/100 WBC (Bld) 60.4 % [facility] Platelets (Bld) [#/Vol] 209 10*3/uL [facility] RBC (Bld) [#/Vol] 4.95 10*6/uL [facility] WBC (Bld) [#/Vol] 5.5 10*3/uL 3.4 - 10.8 K/uL [facility] No Panel Informationon 01-03 Interpretation and review of laboratory results Abnormal [facility] PROTIME-INRon 01-04-2024 INR Coag (PPP) [Relative time] 0.94 {INR} 0.85 - 1.10 [facility] Comment on above: 2.0-3.0 THERAPEUTIC RANGE 2.5-3.5 MECHANICAL VALVE RANGE PT Coag (PPP) [Time] 12.6 s [facility] SCREEN: MRSA ONLY, NARES (IS OLATION SCREEN)on 01-04-2024 MRSA isol Org specific cx Ql (Nose) Negative NEGATIVE [facility] STAPHYOCOCCUS AUREUS BY PCR Negative NEGATIVE [facility] Comment on above: TESTING PERFORMED BY PCR [facility] TYPE AND SCREEN - POSSIBLE T RANSFUSIONon 01-04-2024 ABO and Rh group Nom (Bld ) Positive [facility] ARM BAND NUMBER [id number] [facility] Blood group antibody screen Ql Negative [facility] EXPIRATION DATE 01/20/2024,2359 [facility] URINALYSIS, MACROon 01-04-20 Bilirubin Ql (U) Negative NEGATIVE [facility] Clarity (U) CLEAR CLEAR [facility] Color (U) YELLOW YELLOW [facility] Glucose Test strip (U) [Mass/Vol] Negative NEGATIVE mg/dl [facility] Hemoglobin Ql (U) Negative NEGATIVE [facility] Interpretation and review of laboratory results Abnormal [facility] Ketones (U) [Mass/Vol] Negative NEGATIVE mg/dl [facility] Leukocyte esterase Test strip Ql (U) TRACE Abnormal NEGATIVE [facility] Nitrite Ql (U) Negative NEGATIVE [facility] pH (U) 5.5 [pH] 5.0 - 7.0 [facility] Protein Ql (U) Negative NEGATIVE mg/dl [facility] Specific gravity (U) [Rel density] >1.030 High 1.010 - 1.025 [facility] Urobilinogen (U) [Mass/Vol] 0.2 mg/dL [facility] FOLATE SERUMon 07-25-2023 Folate [Mass/Vol] 11.8 ng/mL >4.7 ng/mL [facility] VITAMIN B12 BLOODon 07-25-19 Cobalamin (Vitamin B12) [Mass/Vol] 269 pg/mL 232 - 1,245 pg/mL [facility] BI MAMMO BILATERAL SCREENING TOMOSYNTHESISon 06-22-2023 BI MAMMO BILATERAL SCREENING TOMOSYNTHESIS Interpreted By: Naveen Barba, STUDY: BI MAMMO BILATERAL SCREENING TOMOSYNTHESIS; 06/22/2023 8:17 am ACCESSION NUMBER(S): [id number] ORDERING CLINICIAN: INTERFACE UNSPECIFIELDPROVIDER INDICATION: Screening. COMPARISON: Digital mammogram dated 01/15/2020 FINDINGS: CC and MLO 2D digital mammograms and digital breast tomosynthesis images were obtained of the bilateral breasts. 3-D volume images were reconstructed in 4 views at an independent workstation as 1 mm slices through the breasts in both the CC and MLO projections. Density: There are areas of scattered fibroglandular tissue. A well-defined ovoid mass is seen in the far posterior 6:00 position of the right breast, increased in size from prior studies. No additional new or enlarging mass or focal asymmetry is identified. No suspicious microcalcifications or foci of architectural distortion are seen. This study was interpreted with CAD. IMPRESSION: Mass in the right breast, as described above. Further evaluation with ultrasound is recommended. BI-RADS CATEGORY: BI-RADS Category: 0 Incomplete; Need Additional Imaging Evaluation and/or Prior Mammograms for Comparison. Recommendation: Ultrasound. Recommended Date: Immediate. Laterality: Right. MACRO: None Signed by: Naveen Barba 06/22/2023 10:03 AM Dictation workstation: [id number] Abnormal [facility] Comment on above: Order Comment: Ryan saleh DBT Breast - bilateralOrdere d By: Naveen Barba on 06-22-2023 Interpretation and review of laboratory results Abnormal [facility] Work Phone: [facility] Work Phone: DBT Breast - bilateralon Interpreted By: Naveen Barba, STUDY: BI MAMMO BILATERAL SCREENING TOMOSYNTHESIS; 06/22/2023 8:17 am ACCESSION NUMBER(S): [id number] ORDERING CLINICIAN: INTERFACE UNSPECIFIELDPROVIDER INDICATION: Screening. COMPARISON: Digital mammogram dated 01/15/2020 FINDINGS: CC and MLO 2D digital mammograms and digital breast tomosynthesis images were obtained of the bilateral breasts. 3-D volume images were reconstructed in 4 views at an independent workstation as 1 mm slices through the breasts in both the CC and MLO projections. Density: There are areas of scattered fibroglandular tissue. A well-defined ovoid mass is seen in the far posterior 6:00 position of the right breast, increased in size from prior studies. No additional new or enlarging mass or focal asymmetry is identified. No suspicious microcalcifications or foci of architectural distortion are seen. This study was interpreted with CAD. [facility] Naveen Barba MD - 06/22/2023 Interpreted By: Naveen Barba, STUDY: BI MAMMO BILATERAL SCREENING TOMOSYNTHESIS; 06/22/2023 8:17 am ACCESSION NUMBER(S): [id number] ORDERING CLINICIAN: INTERFACE UNSPECIFIELDPROVIDER INDICATION: Screening. COMPARISON: Digital mammogram dated 01/15/2020 FINDINGS: CC and MLO 2D digital mammograms and digital breast tomosynthesis images were obtained of the bilateral breasts. 3-D volume images were reconstructed in 4 views at an independent workstation as 1 mm slices through the breasts in both the CC and MLO projections. Density: There are areas of scattered fibroglandular tissue. A well-defined ovoid mass is seen in the far posterior 6:00 position of the right breast, increased in size from prior studies. No additional new or enlarging mass or focal asymmetry is identified. No suspicious microcalcifications or foci of architectural distortion are seen. This study was interpreted with CAD. IMPRESSION: Mass in the right breast, as described above. Further evaluation with ultrasound is recommended. BI-RADS CATEGORY: BI-RADS Category: 0 Incomplete; Need Additional Imaging Evaluation and/or Prior Mammograms for Comparison. Recommendation: Ultrasound. Recommended Date: Immediate. Laterality: Right. MACRO: None Signed by: Naveen Barba 06/22/2023 10:03 AM Dictation workstation: [id number] [facility] Work Phone: Radiology Study observation (narrative) [facility] Work Phone: CBC W Auto Differential pane l (Bld)on 05-21-2023 Basophils (Bld) [#/Vol] 0.07 10*3/uL [facility] Basophils/100 WBC (Bld) 1.2 % 0.0 - 2.0 % [facility] Eosinophils (Bld) [#/Vol] 0.14 10*3/uL [facility] Eosinophils/100 WBC (Bld) 2.4 % 0.0 - 6.0 % [facility] Erythrocyte distribution width (RBC) [Ratio] 12.8 % 11.5 - 14.5 % [facility] Hematocrit (Bld) [Volume fraction] 46.3 % High 36.0 - 46.0 % [facility] Hemoglobin (Bld) [Mass/Vol] 14.9 g/dL 12.0 - 16.0 g/dL [facility] Immature granulocytes (Bld) [#/Vol] 0.02 10*3/uL [facility] Immature granulocytes/100 WBC (Bld) 0.3 % 0.0 - 0.9 % [facility] Comment on above: Immature Granulocyte Count (IG) includes promyelocytes, myelocytes and metamyelocytes but does not include bands. Percent differential counts (%) should be interpreted in the context of the absolute cell counts (cells/UL). Interpretation and review of laboratory results Abnormal [facility] Lymphocytes (Bld) [#/Vol] 1.60 10*3/uL [facility] Lymphocytes/100 WBC (Bld) 27.2 % 13.0 - 44.0 % [facility] MCH (RBC) [Entitic mass] 31.3 pg 26.0 - 34.0 pg [facility] MCHC (RBC) [Mass/Vol] 32.2 g/dL 32.0 - 36.0 g/dL [facility] MCV (RBC) [Entitic vol] 97 fL 80 - 100 fL [facility] Monocytes (Bld) [#/Vol] 0.53 10*3/uL [facility] Monocytes/100 WBC (Bld) 9.0 % 2.0 - 10.0 % [facility] Neutrophils (Bld) [#/Vol] 3.52 10*3/uL [facility] Comment on above: Percent differential counts (%) should be interpreted in the context of the absolute cell counts (cells/uL). Neutrophils/100 WBC (Bld) 59.9 % 40.0 - 80.0 % [facility] Nucleated RBC/100 WBC (Bld) [Ratio] 0.0 % [facility] Platelets (Bld) [#/Vol] 174 10*3/uL [facility] RBC (Bld) [#/Vol] 4.76 10*6/uL [facility] WBC (Bld) [#/Vol] 5.9 10*3/uL [facility] Basophils (Bld) [#/Vol] 0.07 x10*3/uL Normal 0.00-0.10 [facility] Comment on above: Performed By: #### 5 7021-8 #### MELVIN JACOBS ([id number]) [facility] ([facility]) [address] [place] [address] 40939 Basophils/100 WBC (Bld) 1.2 % Normal 0.0-2.0 [facility] Comment on above: Performed By: #### 5 7021-8 #### MELVIN JACOBS ([id number]) [facility] ([facility]) [address] [place] [address] 41422 Eosinophils (Bld) [#/Vol] 0.14 x10*3/uL Normal 0.00-0.40 [facility] Comment on above: Performed By: #### 7021-8 #### MELVIN JACOBS ([id number]) [facility] ([facility]) [address] [place] [address] 22861 Eosinophils/100 WBC (Bld) 2.4 % Normal 0.0-6.0 [facility] Comment on above: Performed By: #### 5 7021-8 #### MELVIN JACOBS ([id number]) [facility] ([facility]) [address] [place] [address] 06632 Erythrocyte distribution width (RBC) [Ratio] 12.8 % Normal 11.5-14.5 [facility] Comment on above: Performed By: #### 5 7021-8 #### MELVIN JACOBS ([id number]) [facility] ([facility]) [address] [place] [address] 74604 Hematocrit (Bld) [Volume fraction] 46.3 % High 36.0-46.0 [facility] Comment on above: Performed By: #### 5 7021-8 #### MELVIN JACOBS ([id number]) [facility] ([facility]) [address] [place] [address] 34103 Hemoglobin (Bld) [Mass/Vol] 14.9 g/dL Normal 12.0-16.0 [facility] Comment on above: Performed By: #### 5 7021-8 #### MELVIN JACOBS ([id number]) [facility] ([facility]) [address] [place] [address] 76514 Immature granulocytes (Bld) [#/Vol] 0.02 x10*3/uL Normal 0.00-0.50 [facility] Comment on above: Performed By: #### 5 7021-8 #### MELVIN JACOBS ([id number]) [facility] ([facility]) [address] [place] [address] 42627 Immature granulocytes/100 WBC (Bld) 0.3 % Normal 0.0-0.9 [facility] Comment on above: Result Comment: Francoise ture Granulocyte Count (IG) includes promyelocytes, myelocytes and metamyelocytes but does not include bands. Percent differential counts (%) should be interpreted in the context of the absolute cell counts (cells/UL). Performed By: #### 5 7021-8 #### MELVIN JACOBS ([id number]) [facility] ([facility]) [address] [place] [address] 54447 Lymphocytes (Bld) [#/Vol] 1.60 x10*3/uL Normal 0.80-3.00 [facility] Comment on above: Performed By: #### 5 7021-8 #### MELVIN JACOBS ([id number]) [facility] ([facility]) [address] [place] [address] 07342 Lymphocytes/100 WBC (Bld) 27.2 % Normal 13.0-44.0 [facility] Comment on above: Performed By: #### 5 7021-8 #### MELVIN JACOBS ([id number]) [facility] ([facility]) [address] [place] [address] 39860 MCH (RBC) [Entitic mass] 31.3 pg Normal 26.0-34.0 [facility] Comment on above: Performed By: #### 5 7021-8 #### MELVIN JACOBS ([id number]) [facility] ([facility]) [address] [place] [address] 51415 MCHC (RBC) [Mass/Vol] 32.2 g/dL Normal 32.0-36.0 [facility] Comment on above: Performed By: #### 5 7021-8 #### MELVIN JACOBS ([id number]) [facility] ([facility]) [address] [place] [address] 38309 MCV (RBC) [Entitic vol] 97 fL Normal 80-100 [facility] Comment on above: Performed By: #### 5 7021-8 #### MELVIN JACOBS ([id number]) [facility] ([facility]) [address] [place] [address] 88008 Monocytes (Bld) [#/Vol] 0.53 x10*3/uL Normal 0.05-0.80 [facility] Comment on above: Performed By: #### 5 7021-8 #### MELVIN JACOBS ([id number]) [facility] ([facility]) [address] [place] [address] 01142 Monocytes/100 WBC (Bld) 9.0 % Normal 2.0-10.0 [facility] Comment on above: Performed By: #### 5 7021-8 #### MELVIN JACOBS ([id number]) [facility] ([facility]) [address] [place] [address] 19846 Neutrophils (Bld) [#/Vol] 3.52 x10*3/uL Normal 1.60-5.50 [facility] Comment on above: Result Comment: Perc ent differential counts (%) should be interpreted in the context of the absolute cell counts (cells/uL). Performed By: #### 5 7021-8 #### MELVIN JACOBS ([id number]) [facility] ([facility]) [address] [place] [address] 38093 Neutrophils/100 WBC (Bld) 59.9 % Normal 40.0-80.0 [facility] Comment on above: Performed By: #### 5 7021-8 #### MELVIN JACOBS ([id number]) [facility] ([facility]) [address] [place] [address] 78367 Nucleated RBC/100 WBC (Bld) [Ratio] 0.0 /100 WBCs Normal 0.0-0.0 [facility] Comment on above: Performed By: #### 5 7021-8 #### MELVIN JACOBS ([id number]) [facility] ([facility]) [address] [place] [address] 90670 Platelets (Bld) [#/Vol] 174 x10*3/uL Normal 150-450 [facility] Comment on above: Performed By: #### 5 7021-8 #### MELVIN JACOBS ([id number]) [facility] ([facility]) [address] [place] [address] 26447 RBC (Bld) [#/Vol] 4.76 x10*6/uL Normal 4.00-5.20 [facility] Comment on above: Performed By: #### 5 7021-8 #### MELVIN JACOBS ([id number]) [facility] ([facility]) [address] [place] [address] 18419 WBC (Bld) [#/Vol] 5.9 x10*3/uL Normal 4.4-11.3 [facility] Comment on above: Performed By: #### 5 7021-8 #### MELVIN JACOBS ([id number]) [facility] ([facility]) [address] [place] [address] 41905 Comprehensive metabolic 2000 panelon 05-21-2023 Albumin BCP dye [Mass/Vol] 3.8 g/dL 3.4 - 5.0 g/dL [facility] ALP [Catalytic activity/Vol] 68 U/L 33 - 136 U/L [facility] ALT With P-5'-P [Catalytic activity/Vol] 37 U/L 7 - 45 U/L [facility] Comment on above: Patients treated wit h Sulfasalazine may generate falsely decreased results for ALT. Anion gap [Moles/Vol] 9 mmol/L Low 10 - 20 mmol/L [facility] AST With P-5'-P [Catalytic activity/Vol] 31 U/L 9 - 39 U/L [facility] Bilirubin [Mass/Vol] 0.3 mg/dL 0.0 - 1 .2 mg/dL [facility] Calcium [Mass/Vol] 8.9 mg/dL 8.6 - 10. 3 mg/dL [facility] Chloride [Moles/Vol] 112 mmol/L High 98 - 10 7 mmol/L [facility] CO2 [Moles/Vol] 23 mmol/L 21 - 32 mmol/L [facility] Creatinine [Mass/Vol] 0.59 mg/dL 0.50 - 1.05 mg/dL [facility] GFR/1.73 sq M.predicted MDRD (S/P/Bld) [Vol rate/Area] - PINF [facility] Comment on above: Calculations of davide mated GFR are performed using the 2020 CKD-EPI Study Refit equation without the race variable for the IDMS-Traceable creatinine methods. https://jasn.asnjournals.org/content//ASN.0495534 988 Glucose [Mass/Vol] 112 mg/dL High 74 - 99 mg/dL [facility] Interpretation and review of laboratory results Abnormal [facility] Potassium [Moles/Vol] 4.0 mmol/L 3.5 - 5.3 mmol/L [facility] Protein [Mass/Vol] 6.2 g/dL Low 6.4 - 8.2 g/dL [facility] Sodium [Moles/Vol] 140 mmol/L 136 - 145 mmol/L [facility] Urea nitrogen [Mass/Vol] 19 mg/dL 6 - 23 mg/dL [facility] Albumin BCP dye [Mass/Vol] 3.8 g/dL Normal 3.4-5.0 [facility] Comment on above: Performed By: #### 2 4323-8 #### MELVIN JACOBS ([id number]) [facility] ([facility]) [address] [place] [address] ALP [Catalytic activity/Vol] 68 U/L Normal 33-136 [facility] Comment on above: Performed By: #### 2 4323-8 #### MELVIN JACOBS ([id number]) [facility] ([facility]) [address] [place] [address] ALT With P-5'-P [Catalytic activity/Vol] 37 U/L Normal 7-45 [facility] Comment on above: Result Comment: Elysia ents treated with Sulfasalazine may generate falsely decreased results for ALT. Performed By: #### 2 4323-8 #### MELVIN JACOBS ([id number]) [facility] ([facility]) [address] [place] [address] Anion gap [Moles/Vol] 9 mmol/L Low 10-20 [facility] Comment on above: Performed By: #### 2 4323-8 #### MELVIN JACOBS ([id number]) [facility] ([facility]) [address] [place] [address] AST With P-5'-P [Catalytic activity/Vol] 31 U/L Normal 9-39 [facility] Comment on above: Performed By: #### 2 4323-8 #### MELVIN JACOBS ([id number]) [facility] ([facility]) [address] [place] [address] Bilirubin [Mass/Vol] 0.3 mg/dL Normal 0.0-1.2 [facility] Comment on above: Performed By: #### 2 4323-8 #### MELVIN JACOBS ([id number]) [facility] ([facility]) [address] [place] [address] Calcium [Mass/Vol] 8.9 mg/dL Normal 8.6-10.3 [facility] Comment on above: Performed By: #### 2 4323-8 #### MELVIN JACOBS ([id number]) [facility] ([facility]) [address] [place] [address] Chloride [Moles/Vol] 112 mmol/L High 98-107 [facility] Comment on above: Performed By: #### 2 4323-8 #### MELVIN JACOBS ([id number]) [facility] ([facility]) [address] [place] [address] CO2 [Moles/Vol] 23 mmol/L Normal 21-32 [facility] Comment on above: Performed By: #### 2 4323-8 #### MELVIN JACOBS ([id number]) [facility] ([facility]) [address] [place] [address] 41847 Creatinine [Mass/Vol] 0.59 mg/dL Normal 0.50-1.05 [facility] Comment on above: Performed By: #### 2 4323-8 #### MELVIN JACOBS ([id number]) [facility] ([facility]) [address] [place] [address] 01577 GFR/1.73 sq M.predicted MDRD (S/P/Bld) [Vol rate/Area] mL/min/{1.73_m2} Normal >60 [facility] Comment on above: Result Comment: Calc ulations of estimated GFR are performed using the 2020 CKD-EPI Study Refit equation without the race variable for the IDMS-Traceable creatinine methods. https://jasn.asnjournals.org/content/early//ASN.6437841 988 Performed By: #### 2 4323-8 #### MELVIN JACOBS ([id number]) [facility] ([facility]) [address] [place] [address] 52352 Glucose [Mass/Vol] 112 mg/dL High 74-99 [facility] Comment on above: Performed By: #### 2 4323-8 #### MELVIN JACOBS ([id number]) [facility] ([facility]) [address] [place] [address] 57232 Potassium [Moles/Vol] 4.0 mmol/L Normal 3.5-5.3 [facility] Comment on above: Performed By: #### 2 4323-8 #### MELVIN JACOBS ([id number]) [facility] ([facility]) [address] [place] [address] 26143 Protein [Mass/Vol] 6.2 g/dL Low 6.4-8.2 [facility] Comment on above: Performed By: #### 2 4323-8 #### MELVIN JACOBS ([id number]) [facility] ([facility]) [address] [place] [address] Sodium [Moles/Vol] 140 mmol/L Normal 136-145 [facility] Comment on above: Performed By: #### 2 4323-8 #### CHARLES ARLENE ([id number]) [facility] ([facility]) [address] [place] [address] Urea nitrogen [Mass/Vol] 19 mg/dL Normal 6-23 [facility] Comment on above: Performed By: #### 2 4323-8 #### CHARLES ARLENE ([id number]) [facility] ([facility]) [facility] [place] [phone] ECG 12-LEADon 05-21-2023 ECG 12-LEAD Ventricular Rate 66 Atrial Rate 208 QRS Duration 82 Q-T Interval 400 QTC Calculation(Bazett) 419 R Summit 56 T Summit 39 QRS Count 11 Q Onset 229 P Onset 156 P Offset 198 T Offset 429 QTC Fredericia 413 Diagnosis Accelerated Junctional rhythm Abnormal ECG When compared with ECG of 21-MAY-2023 01:58, (unconfirmed) Junctional rhythm has replaced Sinus rhythm Incomplete right bundle branch block is no longer Present Nonspecific T wave abnormality now evident in Anterior leads See ED provider note for full interpretation and clinical correlation Confirmed by Desi Doll ([id number]) on 06/07/2023 2:29:32 PM Normal [facility] Lipaseon 05-21-2023 Lipase [Catalytic activity/Vol] 23 U/L 9 - 82 U/L [facility] Lipase [Catalytic activity/V ol]on 05-21-2023 Interpretation and review of laboratory results Normal [facility] Venipuncture immediately after or during the administration of Metamizole may lead to falsely low results. Testing should be performed immediately prior to Metamizole dosing. [facility] Magnesiumon 05-21-2023 Magnesium [Mass/Vol] 1.96 mg/dL 1.60 - 2.40 mg/dL [facility] Magnesium [Mass/Vol] 1.96 mg/dL Normal 1.60-2.40 [facility] Comment on above: Performed By: #### 1 9123-9 #### MELVIN JACOBS ([id number]) [facility] ([facility]) [address] [place] [address] Magnesium [Mass/Vol]on 05-21 Interpretation and review of laboratory results Normal [facility] No Panel Informationon 05-21 [facility] Triacylglycerol lipaseon Lipase [Catalytic activity/Vol] 23 U/L Normal 9-82 [facility] Comment on above: Order Comment: Venip uncture immediately after or during the administration of Metamizole may lead to falsely low results. Testing should be performed immediately prior to Metamizole dosing. Performed By: #### 3 040-3 #### MELVIN JACOBS ([id number]) [facility] ([facility]) [address] [place] [phone] Tropinin I.cardiac panel Hig h sensitivity methodon 05-21-2023 Interpretation and review of laboratory results Normal [facility] Less than 99th percentile of normal range [...] performed using a different testing methodology at [facility] than at other [facility]. Direct result comparisons should only be made within the same method. [facility] Troponin I, High Sensitivity on 05-21-2023 Tropinin I.cardiac panel High sensitivity method ng/L 0 - 13 ng/L [facility] Troponin I.cardiac panelon 1 07-22-2022 Tropinin I.cardiac panel High sensitivity method <3 Normal 0-13 [facility] Comment on above: Order Comment: Less than 99th percentile of normal range [...] performed using a different testing methodology at [facility] than at other [facility]. Direct result comparisons should only be made within the same method. Performed By: #### 8 9577-1 #### CHARLES ARLENE ([id number]) [facility] ([facility]) [address] [place] [address] XR CHEST 1 VIEWon 05-21-2023 XR CHEST 1 VIEW Interpreted By: Winter Flanagan, STUDY: XR CHEST 1 VIEW; 05/21/2023 4:05 am INDICATION: Signs/Symptoms:pain COMPARISON: Chest x-ray 08/21/2022. ACCESSION NUMBER(S): [id number] ORDERING CLINICIAN: CHRIS DURAN TECHNIQUE: Portable upright frontal view of the chest was obtained . FINDINGS: The cardiomediastinal silhouette is within normal limits. No focal consolidation, pleural effusion or pneumothorax. There is biapical pleural scarring. IMPRESSION: 1. No radiographic evidence of acute cardiopulmonary process. MACRO: None. Signed by: Winter Flanagan 05/21/2023 4:27 AM Dictation workstation: [id number] [facility] XR Chest Single viewon 05-21 1. No radiographic evidence of acute cardiopulmonary process. MACRO: None. Signed by: Winter Flanagan 05/21/2023 4:27 AM Dictation workstation: [id number] [facility] Interpreted By: Winter Flanagan, STUDY: XR CHEST 1 VIEW; 05/21/2023 4:05 am INDICATION: Signs/Symptoms:pain COMPARISON: Chest x-ray 08/21/2022. ACCESSION NUMBER(S): [id number] ORDERING CLINICIAN: CHRIS DURAN TECHNIQUE: Portable upright frontal view of the chest was obtained . FINDINGS: The cardiomediastinal silhouette is within normal limits. No focal consolidation, pleural effusion or pneumothorax. There is biapical pleural scarring. [facility] Winter Flanagan, DO - 05/21/2023 Interpreted By: Winter Flanagan, STUDY: XR CHEST 1 VIEW; 05/21/2023 4:05 am INDICATION: Signs/Symptoms:pain COMPARISON: Chest x-ray 08/21/2022. ACCESSION NUMBER(S): [id number] ORDERING CLINICIAN: CHRIS DURAN TECHNIQUE: Portable upright frontal view of the chest was obtained . FINDINGS: The cardiomediastinal silhouette is within normal limits. No focal consolidation, pleural effusion or pneumothorax. There is biapical pleural scarring. IMPRESSION: 1. No radiographic evidence of acute cardiopulmonary process. MACRO: None. Signed by: Winter Flanagan 05/21/2023 4:27 AM Dictation workstation: [id number] [facility] Work Phone: Radiology Study observation (narrative) [facility] Work Phone: XR Chest Single viewOrdered By: Winter Flanagan on 05-21-2023 [facility] Work Phone: Group A Streptococcus, PCRon 04-22-2023 S. pyogenes DNA MARGO+probe Ql (Throat) Not detected Not Detected [facility] Comment on above: This assay is an FDA -cleared, real-time PCR test for the qualitative detection of Group A Streptococcus bacterial DNA from throat swabs that have not undergone a nucleic acid extraction. Negative results do not require confirmation by culture. S. pyogenes DNA MARGO+probe Ql (Throat)on 04-22-2023 Interpretation and review of laboratory results Normal [facility] Colonoscopyon 01-17-2023 Colonoscopy PATIENTNAME Patient Name: Liam Fonseca EXAMDATE Procedure Date: 01/17/2023 10:24 AM PATIENTID PATIENTACCOUNTNUM PATIENTDOB Date of : 1950 ADMITTYPE Admit Type: Outpatient PATIENTROOM Site: [facility] Endo Proc RM 1 ETHNICITY Ethnicity: Not or RACE Race: White PROVDR Attending MD: Bijan Carrillo DO, [id number] ENDOPROCEDURENAME Procedure: Colonoscopy INDICATION Indications: Surveillance: Personal history of colonic polyps (unknown histology) on last colonoscopy 5 years ago PRIMARYPROVIDER Providers: Bijan Carrillo DO (Doctor), Zoë Hernandez RN (Nurse), Lily Shrestha, Header Dock EDREFPROVIDER Referring: Bhanu Meng CURRENT_MEDS Medicines: Midazolam 4 mg IV, Meperidine 50 mg IV, Glucagon 1 mg IV, Ondansetron 4 mg IV COMPLIC Complications: No immediate complications. ENDOPROCEDURETEXT Procedure: Pre-Anesthesia Assessment: - Prior to the procedure, a History and Physical was performed, and patient medications and allergies were reviewed. The patient is competent. The risks and benefits of the procedure and the sedation options and risks were discussed with the patient. All questions were answered and informed consent was obtained. Patient identification and proposed procedure were verified by the physician in the pre-procedure area. Mental Status Examination: alert and oriented. Airway Examination: normal oropharyngeal airway and neck mobility. Respiratory Examination: clear to auscultation. CV Examination: normal. Prophylactic Antibiotics: The patient does not require prophylactic antibiotics. Prior Anticoagulants: The patient has taken no anticoagulant or antiplatelet agents. ASA Grade Assessment: II - A patient with mild systemic disease. After reviewing the risks and benefits, the patient was deemed in satisfactory condition to undergo the procedure. The anesthesia plan was to use moderate sedation / analgesia (conscious sedation). Immediately prior to administration of medications, the patient was re-assessed for adequacy to receive sedatives. The heart rate, respiratory rate, oxygen saturations, blood pressure, adequacy of pulmonary ventilation, and response to care were monitored throughout the procedure. The physical status of the patient was re-assessed after the procedure. After I obtained informed consent, the scope was passed under direct vision. Throughout the procedure, the patient's blood pressure, pulse, and oxygen saturations were monitored continuously. The pediatric colonoscope was introduced through the anus and advanced to the terminal ileum, with identification of the appendiceal orifice and IC valve. The colonoscopy was performed without difficulty. The patient tolerated the procedure well. The quality of the bowel preparation was adequate to identify polyps. The terminal ileum, ileocecal valve, appendiceal orifice, and rectum were photographed. FINDING Findings: The perianal and digital rectal examinations were normal. Pertinent negatives include normal sphincter tone and no palpable rectal lesions. The terminal ileum appeared normal. A few small-mouthed diverticula were found in the sigmoid colon, descending colon and ascending colon. The exam was otherwise without abnormality on direct and retroflexion views. SEDATION Moderate Sedation: Moderate (conscious) sedation was administered by the nurse and supervised by the endoscopist. The following parameters were monitored: oxygen saturation, heart rate, blood pressure, and response to care. Total physician intraservice time was 21 minutes. EBL Estimated Blood Loss: Estimated blood loss: none. IMPRESS Impression: - The examined portion of the ileum was normal. - Mild diverticulosis in the sigmoid colon, in the descending colon and in the ascending colon. - The examination was otherwise normal on direct and retroflexion views. - No specimens collected. ENDORECOMMENDATION Recommendation: - Patient has a contact number available for emergencies. The signs and symptoms of potential delayed complications were discussed with the patient. Return to normal activities tomorrow. Written discharge instructions were provided to the patient. - Resume previous diet. - Continue present medications. - No repeat colonoscopy due to age and the absence of advanced adenomas. CPT_CODES Procedure Code(s): --- Professional --- G0105, Colorectal cancer screening; colonoscopy on individual at high risk ICD_CODES Diagnosis Code(s): --- Professional --- Z12.11, Encounter for screening for malignant neoplasm of colon Z86.010, Personal history of colonic polyps K57.30, Diverticulosis of large intestine without perforation or abscess without bleeding CODINGSTMT CPT copyright 2020 [employer]. All rights reserved. The codes documented in t (more content not included)... Normal [facility] XR KNEE GENERAL 4V AP BOTH/P A BOTH/LAT/MERC BILATERALon 12-21-2022 [facility] CHEST 2 VIEW PA AND LATon CHEST 2 VIEW PA AND LAT Patient Name: LIAM FONSECA STUDY: TH CHEST 2 VIEW PA AND LAT; 08/21/2022 12:09 pm INDICATION: cough . COMPARISON: 11/16/2020 ACCESSION NUMBER(S): [id number] ORDERING CLINICIAN: DANIELA BILDERBACK FINDINGS: Right apical pleural thickening is noted. The heart is not enlarged. No infiltrate, pleural effusion or pneumothorax is seen. Degenerative changes are seen in thoracic spine. IMPRESSION: No active cardiopulmonary disease. Electronically signed by: VASQUEZ CLARKE MD [facility] Provider Note - ED v3on 07-28 Provider Note - ED v3 Provider Note: Chart Review: HISTORY OF PRESENTING ILLNESS LIAM is a 71 year old Female and was seen by me at 21-Aug-2022 11:46 for a chief complaint of cough (Amb to ED with c/o cough x 1 week. She reports that cough is getting worse, moving to her throat and chest. Does report some B/L ear pain as well. 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 Triage Information: Most recent Vital Sign Value Date Temp (F): 97.9 08-21-2022 12:00 Temp (C): 36.6 08-21-2022 12:00 Heart Rate (beats/min): 75 08-21-2022 12:00 Respirations (breaths/min): 16 08-21-2022 12:00 SpO2 (%): 96 08-21-2022 12:00 BP Systolic (mm Hg): 139 08-21-2022 12:00 BP Diastolic (mm Hg): 73 08-21-2022 12:00 PAST MEDICAL HISTORY ALLERGIES/INTOLERANCES: No Known Allergies HEALTH HISTORY: No documented data. OUTPATIENT MEDICATIONS: Home Medications Review Status for Reconciliation: Complete Med Status: Patient Currently Takes Medications Drug Name: Vitamin D3 50 mcg (2000 intl units) oral tablet Instructions: 1 tab(s) orally once a day Drug Name: fluticasone 50 mcg/inh nasal spray Instructions: 2 spray(s) nasal once a day, As Needed Drug Name: diclofenac sodium 75 mg oral delayed release tablet Instructions: 1 tab(s) orally 2 times a day, As Needed Drug Name: lisinopril 10 mg oral tablet Instructions: 1 tab(s) orally once a day SIGNIFICANT EVENTS: Past Medical History Description:pt denies CRITICAL CARE RESULTS: Radiology Results: Impression: No active cardiopulmonary disease. Xray Chest 2 View PA + Lateral [Aug 21 2022 12:32PM] MDM MDM/ED COURSE: PMH: Reviewed PSH: Reviewed Social History: Reviewed. Allergies reviewed. HPI: This is a 71 year old female with no significant past medical history other than recurrent sinusitis who presents to the ED today with complaints of cough x2-3 days. Started with congestion in my throat that has now settled into her chest along with slight rhinorrhea. Taking OTC ibuprofen and aleve, no cough/cold OTC preparations. Denies fevers, n/v/d. Denies known ill contacts. Non-smoker and no smoke exposure. REVIEW OF SYSTEMS: All other systems reviewed and negative except as listed in HPI. PHYSICAL EXAM: GENERAL: Vitals noted, no distress. Alert and oriented x 3. Non-toxic. EENT: TMs clear. Posterior oropharynx unremarkable. EOMI, no nystagmus noted. NECK: Supple. No masses. No midline tenderness. No meningeal signs. CARDIAC: Regular rate, rhythm. No murmurs rubs or gallops. No JVD. PULMONARY: Lungs clear and equal bilaterally. No wheezes rales or rhonchi. No respiratory distress. ABDOMEN: Soft, nondistended, and nontender. No peritoneal signs. Bowel sounds are present and normoactive in all 4 quadrants. No pulsatile masses. EXTREMITIES: No peripheral edema. SKIN: No rash. Warm, dry, and intact. NEURO: No focal neurologic deficits. ED COURSE: This patient was seen and examined by myself indpendnetly. Offered nasal swab to rule out flu/covid, she declined. CXR imaging shows no acute cardiopulmonary disease. No antibiotics needed at this time. She's reassured. 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 Written work note as requested. Recommended OTC cold treatments and rest/fluids. Referred to PCP for followup care in 7-10 days if not better. She is discharged home in a stable condition with computer instructions given and is encouraged to return to the ER for any new or worsening symptoms. DIAGNOSTIC IMPRESSION: #1 bronchitis/URI DISPOSITION Diagnosis/Annotation: ED Dx Name:Bronchitis, acute Code:J20.9 Name:Upper respiratory infection Code:J06.9 Disposition: discharged Type: home CONSULT CRITICAL CARE TIME Is this a critically ill patient: no Electronic Signatures: Daniela Carroll (BAG BUILDER-DIVER HELPER) (Signed 21-Aug-2022 12:47) Authored: HPI, PMH, Results/Vital Signs, MDM/ED Course, Clinical Impression, Attestation, Chart Review, Scores Last Updated: 21-Aug-2022 12:47 by Daniela Carroll (BAG BUILDER-[facility]) References: 1. Data Referenced From Triage - ED 21-Aug-2022 12:00 [facility] Risk Screen - Adult Emergenc yon 08-21-2022 Risk Screen - Adult Emergency Preferred Language: Preferred Language: Preferred Language for Discussing Health Care (patient/designee)Marbin cramer Patient Preferred Pharmacy: Patient Preferred Pharmacy Statement: I have reviewed and updated the patient's preferred pharmacy selection for today's visit. Advanced Directives: Advance Directive/DNRno Family Violence Adult: Abuse Screen: Are you or have you been threatened or abused physically, emotionally, or sexually by anyoneno Learning Assessment (Patient): Learning Assessment (Patient): Patient is Able to be Assessed for Learningyes Factors Influencing Readiness to Learnacuteness of illness Factors that Impact Ability to Learnnone Devices/Methods Used to Communicatenone Learning Preferencesverbal instruction; written material Cultural Considerationsnone Developmental Considerationsnone Bahai Considerationsnone Learning Assessment (Other Learner): Learning Assessment (Other Learner): Other learner availableno Pressure Injury/TB/Substance: Pressure Injury: Pressure Injury Present on Admissionno Do you have a coughno Smoking Statusnever smoker Alcohol Usedenies Drug Usedenies Admission Risk Screen: Significant IndicatorsComplete CAGE: CAGE: Is this an injured patient at a [place] Center [place] no Electronic Signatures: Mirian Egan (RN) (Signed 21-Aug-2022 12:03) Authored: Preferred Language, Patient Preferred Pharmacy, Advanced Directives, Family Violence Adult, Learning Assessment (Patient), Learning Assessment (Other Learner), Pressure Injury/TB/Substance, Pressure Injury, CAGE Last Updated: 21-Aug-2022 12:03 by Mirian Egan (RN) [facility] Triage - EDon 08-21-2022 Triage - ED Quick Triage: The patient and/or guardian verbally acknowledges placement for services into the following (when Urgent Care Service hours are operating):emergency department Chart Review: ARRIVAL INFORMATION Mode of Arrival: private vehicle CHIEF COMPLAINT LIAM S BLAKEBAIL is a Female patient with a chief complaint of cough (Amb to ED with c/o cough x 1 week. She reports that cough is getting worse, moving to her throat and chest. Does report some B/L ear pain as well. 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 Triage Date/Time: 21-Aug-2022 11:42 JAS: 4 Pain Rating (0-10): 0 = None Pain location: denies Vital Signs: Temperature: 97.9F ( 36.6C) taken temporal Blood Pressure: 139/73 Mean: Heart Rate: 75 Respiratory Rate: 16 Pulse Oximetry: 96% on room air, no respiratory support. Weight: 125.6 pounds. Calculated 57.0 kg. [place] Coma Scale: Best Eye Response: (E4) spontaneous Best Motor Response: (M6) obeys commands Best Verbal Response: (V5) oriented Rudy Score: 15 Cough lasting greater than 3 weeks: no Allergies: no Mask applied: yes Patient has homicidal thoughts: no Symptoms Are POSITIVE For: cough. Symptoms Are Negative For: body aches, chest pain, chills, congestion, diaphoresis, dyspnea, fever, headache and malaise. Risk Screens Suicide Risk Screen In the Past Month: Have you wished you were or wished you could go to sleep and not wake up no In the Past Month: Have you had any actual thoughts of killing yourself no In Your Lifetime: Have you ever done anything, started to do anything, or prepared to do anything to end your life no Interventions: Portillo Fall Interventions: LOW INTERVENTIONS: *patient oriented to surroundings and call system, * patient/family falls education completed and documented, *patients fall status communicated during bedside handoff, *whiteboard updated, *mode of toileting discussed with patient, *bed in low position with brakes locked, *call light in reach, * non-skid footwear TRAVEL HISTORY Travel History Coronavirus Screening: no exposure or symptoms Travel Exposure History: NO travel to International locations in the past 30 days PAIN Pain Scale Used: MAGGIE Pain Rating (0-10): 0 = None Past Medical History: Past Medical History Reviewedyes Electronic Signatures: Mirian Egan) (Signed 21-Aug-2022 12:03) Entered: Risk Screens, Pain, Travel History, Chart Review, Scores, Past Medical History Authored: Quick Triage, Risk Screens, Pain, Travel History, Chart Review, Scores, Past Medical History Last Updated: 21-Aug-2022 12:03 by Mirian Egan) [facility] Provider Note - ED v3on 10- Provider Note - ED v3 Provider Note: Chart Review: ED NOTES ED NOTES: Source of Information: Patient. EMR was reviewed for previous records. HPI: Concern for sinus infection. This 71-year-old white female presents to the ED with 1 week history of sinus pain she states the pain is worse in the frontal and maxillary sinus areas is got worse she states that she has radiation of discomfort to her ears bilaterally. Patient admits to a history of recurrent sinus infections. Patient denies any recent use of antibiotics. No history of systemic symptoms such as fevers or chills. Patient denies any allergies to medications. States nothing makes her symptoms better or worse. PMH: Denies PSH: Denies Social Hx: The patient denies any use of tobacco, alcohol or illicit drugs. Fam: MEDS: Denies ALLERGIES: NKDA PHYSICAL EXAM: General: Patient alert, awake, oriented X3, appears to be in no obvious distress, nontoxic, cooperative Skin: Warm. Dry. Intact. No rash. Eyes: PEARTLA, EOMIs intact, sclera white, conjunctiva clear HEENT: Atraumatic. Normo-cephalic. Oral and nasal mucosa pink and moist. Evaluation of the external auditory canals and tympanic membranes are unremarkable with evidence of previous infections as a child with scarring of the tympanic membrane. Mastoids are normal. Posterior oropharynx with mild erythema without exudates. No evidence of retropharyngeal abscess or swelling. Patient maintaining secretions without difficulty. Patient has some mild bilateral nasal congestion. Patient does have pain with percussion over the frontal and maxillary sinuses bilaterally. Neck: Supple without meningismus, no lymphadenopathy. CV: Regular rate and rhythm without murmurs, heaves, lifts or thrills. Respiratory: Nonlabored breathing. There are no retractions or tachypnea. Lungs are clear to auscultation bilaterally. GI: Soft, nontender, without gross distention, bowel sounds present in all 4 quadrants. There is no pulsatile masses. There is no CVA tenderness. No rebound, rigidity or guarding. MUSC: There is no joint swelling or bony tenderness on exam. Neuro: Cranial nerves II - XII grossly intact. No focal neurologic deficits are noted on exam. Lower extremities: There is no peripheral edema bilaterally, negative Homans sign. No palpable cords. Distal pulses are +2/4 and present in both lower extremities. Psych: Maintains eye contact. Cooperative. ED course: Patient was treated for an acute sinusitis. She was treated with a dose of doxycycline in the ED and discharged her home with prescription for doxycyclin. I did have a discussion about decongestants and she states that they normally work well. She understood that the medication could elevate her blood pressure though currently she is not being treated for hypertension. The patient was prescribed a decongestant and referred back to her primary care doctor for follow-up concerning her sinusitis. This chart was dictated with the use of [employer] software within the framework of the current electronic medical records software. Attempts were made to edit in real time, given time constraints there is the potential for inaccuracies in my dictation. Lidya Adair, DO HISTORY OF PRESENTING ILLNESS LIAM is a 71 year old Female and was seen by me at 07-Mar-2022 21:22 for a chief complaint of other (C/O sinus pain, ear pain and scratchy throat.) . Triage Information: Most recent Vital Sign Value Date Temp (F): 99 03-07-2022 20:12 Temp (C): 37.2 03-07-2022 20:12 Heart Rate (beats/min): 92 03-07-2022 20:12 Respirations (breaths/min): 16 03-07-2022 20:12 SpO2 (%): 95 03-07-2022 20:12 BP Systolic (mm Hg): 149 03-07-2022 20:12 BP Diastolic (mm Hg): 95 03-07-2022 20:12 PAST MEDICAL HISTORY CURRENT OR FORMER SUBSTANCE USE: Tobacco/Nicotine Use: never smoker Alcohol Use: denies Drug Use: denies,ALLERGIES/INTOLE RANCES: No Known Allergies HEALTH HISTORY: No documented data. OUTPATIENT MEDICATIONS: Home Medications Review Status for Reconciliation: Complete Med Status: Patient Currently Takes Medications Drug Name: Vitamin D3 10 mcg/mL (400 intl units/mL) oral liquid Instructions: 1 milliliter(s) orally once a day Drug Name: doxycycline hyclate 100 mg oral tablet Instructions: 1 tab(s) orally 2 times a day Drug Name: Maximum Strength Non-D (more content not included)... [facility] Risk Screen - Adult Emergenc yon 03-07-2022 Risk Screen - Adult Emergency Preferred Language: Preferred Language: Preferred Language for Discussing Health Care (patient/designee)Marbin cramer Patient Preferred Pharmacy: Patient Preferred Pharmacy Statement: I have reviewed and updated the patient's preferred pharmacy selection for today's visit. Advanced Directives: Advance Directive/DNRno Family Violence Adult: Abuse Screen: Are you or have you been threatened or abused physically, emotionally, or sexually by anyoneno Learning Assessment (Patient): Learning Assessment (Patient): Patient is Able to be Assessed for Learningyes Factors Influencing Readiness to Learnpain Factors that Impact Ability to Learnnone Devices/Methods Used to Communicatenone Learning Preferenceswritten material Cultural Considerationsnone Developmental Considerationsnone Bahai Considerationsnone Learning Assessment (Other Learner): Learning Assessment (Other Learner): Other learner availableno Pressure Injury/TB/Substance: Pressure Injury: Pressure Injury Present on Admissionno Do you have a coughno Smoking Statusnever smoker Alcohol Useoccasionally Drug Usedenies Drug 2 Usedenies Admission Risk Screen: Significant IndicatorsComplete CAGE: CAGE: Is this an injured patient at a Tra[place] Center [place]/[place] no Electronic Signatures: Lory Tripathi (SUPV) (Signed 07-Mar-2022 20:18) Authored: Preferred Language, Patient Preferred Pharmacy, Advanced Directives, Family Violence Adult, Learning Assessment (Patient), Learning Assessment (Other Learner), Pressure Injury/TB/Substance, Pressure Injury, CAGE Last Updated: 07-Mar-2022 20:18 by Lory Tripathi (SUPV) [facility] Triage - EDon 03-07-2022 Triage - ED Quick Triage: The patient and/or guardian verbally acknowledges placement for services into the following (when Urgent Care Service hours are operating):emergency department Chart Review: ARRIVAL INFORMATION Mode of Arrival: private vehicle CHIEF COMPLAINT LIAM FONSECA is a Female patient with a chief complaint of other (C/O sinus pain, ear pain and scratchy throat.). Onset of the Complaint: 06-Mar-2022 Triage Date/Time: 07-Mar-2022 20:12 JAS: 3V Pain Rating (0-10): 6 = Moderate Vital Signs: Temperature: 99.0F ( 37.2C) taken oral Blood Pressure: 149/95 Mean: Heart Rate: 92 Respiratory Rate: 16 Pulse Oximetry: 95% on room air, no respiratory support. Height: 5 feet 1.00 inches. 154.9 CM Weight: 123.4 pounds. Calculated 56.0 kg. 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 Patient has homicidal thoughts: no Symptoms Are POSITIVE For: pain Last Known Well: unknown Risk Screens Suicide Risk Screen In the Past Month: Have you wished you were or wished you could go to sleep and not wake up no In the Past Month: Have you had any actual thoughts of killing yourself no In Your Lifetime: Have you ever done anything, started to do anything, or prepared to do anything to end your life no Interventions: Portillo Fall Interventions: LOW INTERVENTIONS: *patient oriented to surroundings and call system, * patient/family falls education completed and documented, *patients fall status communicated during bedside handoff, *whiteboard updated, *mode of toileting discussed with patient, *bed in low position with brakes locked, *call light in reach, * non-skid footwearlow interventions except: patient oriented to surroundings and call systemlow interventions except: patient/family falls education completed and documentedlow interventions except: patients fall status communicated during bedside handoff, whiteboard updatedlow interventions except: mode of toileting discussed with patientlow interventions except: bed in low position with brakes lockedlow interventions except: call light in reach and low interventions except: non-skid footwear TRAVEL HISTORY Travel History Coronavirus Screening: no exposure or symptoms Travel Exposure History: NO travel to International locations in the past 30 days PAIN Pain Scale Used: MAGGIE Pain Rating (0-10): 6 = Moderate Past Medical History: Past Medical History Reviewedyes Electronic Signatures: Lory Tripathi (SUPV) (Signed 07-Mar-2022 20:16) Entered: Risk Screens, Pain, Travel History, Chart Review, Scores, Past Medical History Authored: Quick Triage, Risk Screens, Pain, Travel History, Chart Review, Scores, Past Medical History Last Updated: 07-Mar-2022 20:16 by Lory Tripathi (BROOKE) Normal [facility] No Panel Informationon 11-25 [facility] XR KNEE GENERAL 4V AP BOTH/P A BOTH/LAT/MERC LEFTon 09-27-2021 [facility] Therapy Communicationon 02-26 Therapy Communication Message LIAM BLAKEBAIL canceled today . Signatures Electronically signed by : Karla Egan PTA; Mar 10 2021 9:44AM EST (Author) Normal [facility] GROUP A STREP, PCRon 021 S. pyogenes Ag Ql (Throat) Not detected See Below [facility] Work Phone: Comment on above: SOURCE: ThroatRefere nce Range: Not Detected This test was performed utilizing an FDA-cleared rapid nucleic acid amplification by PCR to qualitatively detect Group A Streptococci from throat swab specimens without the need for culture confirmation of negative results. Therapy Communicationon 02-26 Therapy Communication Message LIAM BLAKEBAIL canceled today . Patient cancelled due to being at ER with a very sore throat. Signatures Electronically signed by : Karla Egan PTA; Mar 08 2021 7:49AM EST (Author) Normal [facility] PT Progress Noteon PT Progress Note No report was sent [facility] Therapy Communicationon 10- Therapy Communication Message LIAM BLAKEBAIL no showed today . Signatures Electronically signed by : Blake Montejo PTA; Mar 03 2021 7:40AM EST (Author) Normal [facility] PT Progress Noteon PT Progress Note Therapy Diagnosis Assessed Chronic pain of left knee (719.46,338.29) (M25.562,G89.29) Plan Goals: Goals set and discussed today. Pt will demonstrate independence and compliance with HEP and self management, by week 2, goal partially met Activity Limitation: Increase ability as assessed by LEFS to 80/80 for improved QOL, by week 4, goal partially met Balance: SLS L x 10 to decrease fall risk, by week 4, goal partially met Pain: Decrease max pain to less than or equal to 3/10 for improved QOL. , by week 4, goal partially met Range Of Motion/Joint Mobility: L knee AROM 0-140 without pain for more normalized gait pattern, by week 4, goal partially met Strength: L LE MMT 5/5 throughout for reciprocal stair climbing without increased pain, by week 4, goal partially met Planned interventions include: aquatic therapy, cryotherapy, edema control, education/instruction, electrical stimulation, gait training, home program, hot pack, kinesiotaping, manual therapy, neuromuscular re-education, self care/home management, therapeutic activities, therapeutic exercises, vasopneumatic device and vasopneumatic device w/ cold . OKC progressing to CKC, flexibility/strengtheni ng L knee/hip, modalities PRN, static/dynamic bal, normalize gait. Frequency and duration: 2 time(s) a week, for 4 weeks, for 8 visits. Potential to achieve rehab goals is good Progress with POC, as tolerated. Assessment Pt has attended 4 visits of PT [...] pain with walking/stairs - encouraged to call re cont symptoms and to cont with skilled PT 2x/wk for 4 weeks to further increase flexibility/ROM, increase LE strength for decreased pain with gait. Discussed possible aquatic PT benefits, patient not interested in pool trial at this time. Response to treatment: improved flexibility. Patient was able to complete today's treatment with some difficulty. Adult Risk Screening There are no spiritual/cultural practices/values/needs that are important to know Initial Fall Risk Screening: LIAM has not fallen in the last 6 months. LIAM does not have a fear of falling. She does not need assistance with sitting, standing or walking. Does not need assistance walking in her home. She does not need assistance in an unfamiliar setting. The patient is not using an assistive device. Fall Risk Screening: Patient is identified as a fall risk. Care Plan: Low Risk: Environmental for all patients and low risk patients: Offer assistance as needed or requested, keep environment free of obstacles, keep floor clean and dry, keep room lighting, wheelchair brakes on, bed/ stretcher locked and in low position if applicable, non-slip footwear if applicable, walker/cane available if needed, side rails up if applicable and pre-emptive toileting. Pain Scale: On a scale of 0 to 10, the patient rates the pain at 5. Please identify location of pain: L knee. Pain Quality: aching, burning, dull and throbbing. The pain makes it hard for the patient to do these things: walking, sleep, work and house work. Insurance Insurance reviewed Visit number: 4 POC 09/03 supervising PT MY Medicare Med Silver Onset Date: 2020 Subjective Patient reports:. C/o increased knee soreness this morning, no known reason. Semi-compliant with HEP. Notes continued difficulty with walking and stairs due to knee pain. L knee pain 5/10 at rest, max pain in past week 6/10. Home program performing as directed: Yes. Precautions: none. Fall Risk: low Objective Ortho LEFS 61/80 L knee AROM flex 120 stiff, ext 12 L LE MMT hip flex 4/5, hip abd 4/5, hip add 4/5, knee flex 4/5, knee ext 5/5. Treatment Time in clinic started at 8:30 am Time in clinic ended at 9:15 am Total time in clinic is 45 minutes. Total timed code time is 40 minutes. Therapeutic exercise (33890): timed minutes 40, units 3 . *See Gait* Sci-fit stepper lvl 2 5 mins white slantboard gastroc stretch 2 x 1min std L HS stretch at stairs 10 x 10 L Step ups 2 x 10 fwd 6 X Standing hip abd 2 x 10 ea LE X Heel raises 2 x 10 X HS curls 2 x [address] SLR 2 x 10 2# X Bridging 2 x 10 X AAROM L knee flex heelslide x 10 10 TKE L next if appropriate patient education on symptom management. Gait Training (58695):. - Gait training on treadmill. 1.0 MPH. working on heel strike/toe off and keeping L quad contracted when in stance phase. -Gait training on level surface of floor. Provided today: education . 01/25/21 HEP: Seated HS stretch, seated gastroc stretch with strap, seated QS, Supine heel slides with strap. Contacts for Physician Signature First attempt date: 02/22 (more content not included)... [facility] Therapy Re-eval Noteon 02-22 Therapy Re-eval Note Therapy Diagnosis Assessed 1. Chronic pain of left knee (719.46,338.29) (M25.562,G89.29) Plan Goals: Goals set and discussed today. Pt will demonstrate independence and compliance with HEP and self management, by week 2, goal partially met Activity Limitation: Increase ability as assessed by LEFS to 80/80 for improved QOL, by week 4, goal partially met Balance: SLS L x 10 to decrease fall risk, by week 4, goal partially met Pain: Decrease max pain to less than or equal to 3/10 for improved QOL. , by week 4, goal partially met Range Of Motion/Joint Mobility: L knee AROM 0-140 without pain for more normalized gait pattern, by week 4, goal partially met Strength: L LE MMT 5/5 throughout for reciprocal stair climbing without increased pain, by week 4, goal partially met Planned interventions include: aquatic therapy, cryotherapy, edema control, education/instruction, electrical stimulation, gait training, home program, hot pack, kinesiotaping, manual therapy, neuromuscular re-education, self care/home management, therapeutic activities, therapeutic exercises, vasopneumatic device and vasopneumatic device w/ cold . OKC progressing to CKC, flexibility/strengtheni ng L knee/hip, modalities PRN, static/dynamic bal, normalize gait. Frequency and duration: 2 time(s) a week, for 4 weeks, for 8 visits. Potential to achieve rehab goals is good Progress with POC, as tolerated. Assessment Pt has attended 4 visits of PT [...] increase LE strength for decreased pain with gait. Discussed possible aquatic PT benefits, patient not interested in pool trial at this time. Response to treatment: improved flexibility. Patient was able to complete today's treatment with some difficulty. Adult Risk Screening There are no spiritual/cultural practices/values/needs that are important to know Initial Fall Risk Screening: LIAM has not fallen in the last 6 months. LIAM does not have a fear of falling. She does not need assistance with sitting, standing or walking. Does not need assistance walking in her home. She does not need assistance in an unfamiliar setting. The patient is not using an assistive device. Fall Risk Screening: Patient is identified as a fall risk. Care Plan: Low Risk: Environmental for all patients and low risk patients: Offer assistance as needed or requested, keep environment free of obstacles, keep floor clean and dry, keep room lighting, wheelchair brakes on, bed/ stretcher locked and in low position if applicable, non-slip footwear if applicable, walker/cane available if needed, side rails up if applicable and pre-emptive toileting. Pain Scale: On a scale of 0 to 10, the patient rates the pain at 5. Please identify location of pain: L knee. Pain Quality: aching, burning, dull and throbbing. The pain makes it hard for the patient to do these things: walking, sleep, work and house work. Insurance Insurance reviewed Visit number: 4 POC 09/03 supervising PT MY Medicare Med Silver Onset Date: 2020 Subjective Patient reports:. C/o increased knee soreness this morning, no known reason. Semi-compliant with HEP. Notes continued difficulty with walking and stairs due to knee pain. L knee pain 5/10 at rest, max pain in past week 6/10. Home program performing as directed: Yes. Precautions: none. Fall Risk: low Objective Ortho LEFS 61/80 L knee AROM flex 120 stiff, ext 12 L LE MMT hip flex 4/5, hip abd 4/5, hip add 4/5, knee flex 4/5, knee ext 5/5. Treatment Time in clinic started at 8:30 am Time in clinic ended at 9:15 am Total time in clinic is 45 minutes. Total timed code time is 40 minutes. Therapeutic exercise (27785): timed minutes 40, units 3 . *See Gait* Sci-fit stepper lvl 2 5 mins white slantboard gastroc stretch 2 x 1min std L HS stretch at stairs 10 x 10 L Step ups 2 x 10 fwd 6 X Standing hip abd 2 x 10 ea LE X Heel raises 2 x 10 X HS curls 2 x [address] SLR 2 x 10 2# X Bridging 2 x 10 X AAROM L knee flex heelslide x 10 10 TKE L next if appropriate patient education on symptom management. Gait Training (39226):. - Gait training on treadmill. 1.0 MPH. working on heel strike/toe off and keeping L quad contracted when in stance phase. -Gait training on level surface of floor. Provided today: education . 01/25/21 HEP: Seated HS stretch, seated gastroc stretch with strap, seated QS, Supine heel slides with strap. Contacts for Physician Signature First attempt date: 9 (more content not included)... [facility] Therapy Communicationon 01-27 Therapy Communication Message LIAM FONSECA canceled today . Signatures Electronically signed by : Karla Egan PTA; Feb 10 2021 7:50AM EST (Author) [facility] PT Progress Noteon PT Progress Note Therapy Diagnosis Assessed Chronic pain of left knee (719.46,338.29) (M25.562,G89.29) Plan Goals: Goals set and discussed today. Pt will demonstrate independence and compliance with HEP and self management, by week 2 Activity Limitation: Increase ability as assessed by LEFS to 80/80 for improved QOL, by week 4 Balance: SLS L x 10 to decrease fall risk, by week 4 Pain: Decrease max pain to less than or equal to 3/10 for improved QOL. , by week 4 Range Of Motion/Joint Mobility: L knee AROM 0-140 without pain for more normalized gait pattern, by week 4 Strength: L LE MMT 5/5 throughout for reciprocal stair climbing without increased pain, by week 4 Planned interventions include: aquatic therapy, cryotherapy, edema control, education/instruction, electrical stimulation, gait training, home program, hot pack, kinesiotaping, manual therapy, neuromuscular re-education, self care/home management, therapeutic activities, therapeutic exercises, vasopneumatic device and vasopneumatic device w/ cold . OKC progressing to CKC, flexibility/strengtheni ng L knee/hip, modalities PRN, static/dynamic bal, normalize gait. Frequency and duration: 2 time(s) a week, for 4 weeks, for 8 visits. Potential to achieve rehab goals is good Plan to continue with gait, L knee ROM, L knee strength and add manual therapy if needed to address any tissue restrictions. -MA. Assessment Patient identified by name AND . Patient wore a mask during treatment d/t Covid-19 precautions. Treatment consisted of ther ex's and gait. Worked on heel strike/toe off, increasing knee flexion with swing phase and keeping quads contracted with stance phase and cues not to hip hike L side with swing phase. Patient's pain level the same post treatment, but reported improved ease of movement in her entire L leg. Adult Risk Screening There are no spiritual/cultural practices/values/needs that are important to know Initial Fall Risk Screening: LIAM has not fallen in the last 6 months. LIAM does not have a fear of falling. She does not need assistance with sitting, standing or walking. Does not need assistance walking in her home. She does not need assistance in an unfamiliar setting. The patient is not using an assistive device. Fall Risk Screening: Patient is identified as a fall risk. Care Plan: Low Risk: Environmental for all patients and low risk patients: Offer assistance as needed or requested, keep environment free of obstacles, keep floor clean and dry, keep room lighting, wheelchair brakes on, bed/ stretcher locked and in low position if applicable, non-slip footwear if applicable, walker/cane available if needed, side rails up if applicable and pre-emptive toileting. Pain Scale: On a scale of 0 to 10, the patient rates the pain at 5. Please identify location of pain: L knee. Pain Quality: aching, burning, dull and throbbing. The pain makes it hard for the patient to do these things: walking, sleep, work and house work. Insurance Insurance reviewed Visit number: 3 POC 08/03 supervising PT MY Medicare Med Silver Onset Date: 2020 Subjective Patient reports:. Left knee hurting today. States that if she takes an anti inflammatory it feels better, but she does not like to take medications every day. Sometimes she has difficulty bending her left knee to get lowers on. States that when she has left knee pain, it seems to start in the hip. Home program performing as directed: Partially. Precautions: none. Fall Risk: low Treatment Time in clinic started at 7:50 am Time in clinic ended at 8:35 am Total time in clinic is 45 minutes. Total timed code time is 43 minutes. Therapeutic exercise (61038): timed minutes 33, units 2 . *See Gait* Sci-fit stepper lvl 3 5 mins L Step ups 2 x 10 fwd 6 Standing hip abd 2 x 10 ea LE Heel raises 2 x 10 HS curls 2 x [address] SLR 2 x 10 2# Bridging 2 x 10 AAROM x 10 10 (X, no time) HS stretch x 10 10 (X, no time). Gait Training (54907): timed minutes 10, units 1 . - Gait training on treadmill. 1.0 MPH. working on heel strike/toe off and keeping L quad contracted when in stance phase. -Gait training on level surface of floor. Provided today: education . 01/25/21 HEP: Seated HS stretch, seated gastroc stretch with strap, seated QS, Supine heel slides with strap. 'Scores and Scales' Signatures Electronically signed by : Karla Egan [employer]TAIN; Feb 08 2021 8:57AM EST (Author) Electronically signed by : Ashley Tinajero, PT; Feb 11 2021 12:29PM EST [facility] PT Progress Noteon PT Progress Note Therapy Diagnosis Assessed Chronic pain of left knee (719.46,338.29) (M25.562,G89.29) Plan Goals: Goals set and discussed today. Pt will demonstrate independence and compliance with HEP and self management, by week 2 Activity Limitation: Increase ability as assessed by LEFS to 80/80 for improved QOL, by week 4 Balance: SLS L x 10 to decrease fall risk, by week 4 Pain: Decrease max pain to less than or equal to 3/10 for improved QOL. , by week 4 Range Of Motion/Joint Mobility: L knee AROM 0-140 without pain for more normalized gait pattern, by week 4 Strength: L LE MMT 5/5 throughout for reciprocal stair climbing without increased pain, by week 4 Planned interventions include: aquatic therapy, cryotherapy, edema control, education/instruction, electrical stimulation, gait training, home program, hot pack, kinesiotaping, manual therapy, neuromuscular re-education, self care/home management, therapeutic activities, therapeutic exercises, vasopneumatic device and vasopneumatic device w/ cold . OKC progressing to CKC, flexibility/strengtheni ng L knee/hip, modalities PRN, static/dynamic bal, normalize gait. Frequency and duration: 2 time(s) a week, for 4 weeks, for 8 visits. Potential to achieve rehab goals is good Progress hip strengthening as tolerated. Progress with POC, as tolerated. Assessment Fair tolerance to ther ex. Weakness noted with hip and quad strengthening. fair eccentric control on shuttle press. Quick fatigue with SLR. AAROM L knee flexion WFL. Adult Risk Screening There are no spiritual/cultural practices/values/needs that are important to know Initial Fall Risk Screening: LIAM has not fallen in the last 6 months. LIAM does not have a fear of falling. She does not need assistance with sitting, standing or walking. Does not need assistance walking in her home. She does not need assistance in an unfamiliar setting. The patient is not using an assistive device. Fall Risk Screening: Patient is identified as a fall risk. Care Plan: Low Risk: Environmental for all patients and low risk patients: Offer assistance as needed or requested, keep environment free of obstacles, keep floor clean and dry, keep room lighting, wheelchair brakes on, bed/ stretcher locked and in low position if applicable, non-slip footwear if applicable, walker/cane available if needed, side rails up if applicable and pre-emptive toileting. Pain Scale: On a scale of 0 to 10, the patient rates the pain at 6. Please identify location of pain: L knee. Insurance Insurance reviewed Visit number: 2 POC 07/06 supervising PT MY Medicare Med Silver Onset Date: 2020 Subjective Patient reports:. Pt. reports that she continues to have stiffness and pain in her L knee. Pt. reports that she has increases pain when she stands from prolonged sitting. Precautions: none. Fall Risk: low Treatment Time in clinic started at 7:45 am Time in clinic ended at 8:27 am Total time in clinic is 42 minutes. Total timed code time is 40 minutes. Therapeutic exercise (79311): timed minutes 40, units 3 . Sci-fit stepper lvl 3 5 mins Step ups 2 x 10 fwd 6 Standing hip abd 2 x 10 Heel raises 2 x 10 HS curls 2 x [address] SLR 2 x 10 2# Bridging 2 x 10 AAROM x 10 10 HS stretch x 10 10. 'Scores and Scales' Signatures Electronically signed by : Feliciano Snyder, [employer]TAIN; Feb 03 2021 8:30AM EST (Author) Electronically signed by : Ashley Tinajero, PT; Feb 04 2021 1:23PM EST [facility] PT Initial Evaluationon 08- PT Initial Evaluation Therapy Diagnosis Assessed Chronic pain of left knee (719.46,338.29) (M25.562,G89.29) Plan of Care Goals: Goals set and discussed today. Pt will demonstrate independence and compliance with HEP and self management, by week 2 Activity Limitation: Increase ability as assessed by LEFS to 80/80 for improved QOL, by week 4 Balance: SLS L x 10 to decrease fall risk, by week 4 Pain: Decrease max pain to less than or equal to 3/10 for improved QOL. , by week 4 Range Of Motion/Joint Mobility: L knee AROM 0-140 without pain for more normalized gait pattern, by week 4 Strength: L LE MMT 5/5 throughout for reciprocal stair climbing without increased pain, by week 4 Planned interventions include: aquatic therapy, cryotherapy, edema control, education/instruction, electrical stimulation, gait training, home program, hot pack, kinesiotaping, manual therapy, neuromuscular re-education, self care/home management, therapeutic activities, therapeutic exercises, vasopneumatic device and vasopneumatic device w/ cold . OKC progressing to CKC, flexibility/strengtheni ng L knee/hip, modalities PRN, static/dynamic bal, normalize gait. Frequency and duration: 2 time(s) a week, for 4 weeks, for 8 visits. Potential to achieve rehab goals is good Plan of care was developed with input and agreement by the patient. Assessment Patient is a 70 year female who presents with signs/symptoms consistent with L knee pain: increased pain, decreased knee AROM, decreased knee/LE strength, decreased ability as assessed by the LEFS. Patient would benefit from skilled PT to improve knee AROM, improve knee/LE strength for return to PLOF: able to walk in grocery store without a limp. Barriers to patient?s progress in PT include chronicity of symptoms; however, rehab potential is good because patient is motivated to participate in PT and has not yet trialed conservative PT management. At initial evaluation, patient was instructed in knee/hip flexibility exercises. At end of initial evaluation, patient reported no change in symptoms vs pre-evaluation. Clinical Presentation: Stable and/or uncomplicated characteristics. Level of Complexity: low Problem List: activity limitations, ADLs/IADLs/self care skills, balance, decreased functional level, decreased knowledge of HEP, fall risk, flexibility, gait/locomotion, pain, participation restrictions, posture, range of motion/joint mobility and strength. Reason For Visit Initial Evaluation . L knee pain. Referred by: Marilyn Hair PA-C Adult Risk Screening There are no spiritual/cultural practices/values/needs that are important to know Initial Fall Risk Screening: LIAM has not fallen in the last 6 months. LIAM does not have a fear of falling. She does not need assistance with sitting, standing or walking. Does not need assistance walking in her home. She does not need assistance in an unfamiliar setting. The patient is not using an assistive device. Fall Risk Screening: Patient is identified as a fall risk. Care Plan: Low Risk: Environmental for all patients and low risk patients: Offer assistance as needed or requested, keep environment free of obstacles, keep floor clean and dry, keep room lighting, wheelchair brakes on, bed/ stretcher locked and in low position if applicable, non-slip footwear if applicable, walker/cane available if needed, side rails up if applicable and pre-emptive toileting. Pain Scale: On a scale of 0 to 10, the patient rates the pain at 6. Please identify location of pain: L knee. Insurance Insurance reviewed Visit number: 1 POC 06/05 supervising PT MY Medicare Med Silver Onset Date: 2020 Subjective Current Episode of Functional Impairment and/or Pain Date of onset: 09/25/20 Mechanism of Injury:. L knee pain began several months ago, no specific mechanism of injury, symptoms gradually worsened over time. Elected to see [facility] due to pain and starting to walk with a limp. X-ray taken of L knee, prescribed Meloxicam and referred to PT. Plan is to complete PT and follow-up with MD if needed. L knee pain is anterior/posterior/medi al/lateral. L knee pain is burning and achey. Pain 5-6/10 at rest. Max pain in past week 6/10. Aggravating activities: bending, walking greater than an hour at the store, stairs. Alleviating activities: sitting/resting. Denies clicking, popping, locking, buckling, grinding. C/o occ catching where knee feels stiff but is able to bend/straighten. Pain can disturb her sleep at night, wakes up with it aching. No previous L knee injuries or L knee surgeries. Med hx: OA Surgeries: no recent surgeries (states children way back) Allergies: sinus allergies Employed part-time [employer]. Responsible for yardwork/housework. Goes on walks with her and states I stay very active. No falls in past 6 months. GOAL: get my knee to work, get my knee better.. Precautions: none. Fall Risk: low Functional Assessment Patient (more content not included)... [facility] Provider Letteron 12-30-2020 Provider Letter December 30, 2020 December 30, 2020 LIAM EASLEY [address] [place] [address] LIAM EASLEY 1950 Dear Ms. Maurice, We have been trying to reach you with no success. It is important that you return our call regarding your appointment upon receiving this letter. Also, at the time of your call, please provide us with your current information. Thank you for your prompt attention to this matter. Sincerely, Dr. Chakraborty, [address] [address] Normal [facility] Family Medicine Office/Clini c Noteon 07-08-2020 Family Medicine Office/Clinic Note Chief Complaint Patient presents to [facility] care with Dr. Chakraborty/ C/o knee pain Phone visit since telehealth is not working. [facility] Staff Nelsy is a 69 year old female who presents phone visit to [facility] with Dr. Chakraborty. Have been seen by any other providers since last visit with Dr. Chakraborty? ER, Urgent Care, or Specialty offices? no Date, Why, where, Reason?-no Tests performed, X-rays or labs?- Last appointment was around 3 months ago- last labs were around a year ago Diagnosis(es)?-no Medication prescribed?-no She C/o of knee pain, LT knee onset for a couple years. She does state did have x-ray done for the knee. Has been taking Meloxicam 7.5 mg. She does state has been helping. States has been having discomfort of the knee while walking. No injury to the knee. Denies bruising, swelling, redness around the knee. No other concerns feels healthy History of Present Illness 69-year-old white female with a history of knee pain. States it has been doing about the same may be a little worse. She uses the meloxicam no more than 3-4 times per week. She has not been doing any the short arc quad sets or the stretching as we discussed. She denies any problems with heartburn and stomach upset side effects we discussed as a potential for the use of nonsteroidals. She does not take any other additional nonsteroidals in addition to the meloxicam. She denies any locking clicking or giving way. Review of Systems PHQ Score Initial Depression Screen Score: 0 ROS - Provider Constitutional: no fever, no chills, no sweats, no weakness. Skin: no Jaundice, no rash, no lesions, no petechiae. ENMT: no ear pain, no sore throat, no congestion, no hoarseness. Respiratory: no shortness of breath, no cough, no orthopnea, no wheezing. Cardiovascular: no chest pain, no palpitations, no edema. Gastrointestinal: no nausea, no vomiting, no diarrhea, no GI bleeding. Genitourinary: no dysuria, no hematuria, no discharge, no pain. Musculoskeletal: no back pain, no trauma. Chronic knee pain. Neurologic: no headache, no dizziness, no numbness, no weakness. Psychiatric: no sleeping problems, no irritability, no mood swings/depression. Heme/Lymph: no bleeding tendency, no bruising tendency, no petechiae, no swollen no virgilio. Allergy/Immuno logic: no seasonal allergies, no food allergies, no recurrent infections, no impaired immunity. Physical Exam Vitals & Measurements HT: 154.0 cm HT: 154 cm WT: 56.0 kg WT: 56 kg BMI: 23.61 This visit was conducted via phone communications from my office due to the restrictions of the COVID-19 pandemic. No physical exam was conducted due to audio only communication with the patient located at [address] [place] [address] DR [place] [phone], with self alone in attendance. If it is determined that the patient should be evaluated in person, the patient will be directed to the appropriate clinic or venue. The patient or their guardian verbally consented to this visit. Phone time was 10 minutes discussing health issues with counseling and coordination of care. Assessment/Plan 1. Knee pain (M25.569: Pain in unspecified knee) Have refilled the meloxicam. I have told her that when she completes this course I would strongly recommend interval lab testing including comprehensive metabolic panel and CBC to make sure there were not dealing with any adverse side effects of liver, kidney, or blood loss from the gut. Have advised short axis and quad sets in addition to stretching of the posterior knee. Ice and Tylenol when the meloxicam alone is not effective. Orders: meloxicam, 7.5 mg = 1 tab(s), Oral, Daily, # 30 tab(s), Refills(s) 3, Pharmacy: [id number], 154, cm, 07/08/20 13:27:00 EST, Height/Length Dosing, 56, kg, 07/08/20 13:27:00 EST, Weight Dosing Follow-up With When Contact Information Fortino Chakraborty MD In 4 months [phone] Additional Instructions: Will need blood work when she completes this course of meloxicam. Short arcs and quad sets in addition to stretching of the hamstring. If any GI upset or locking clicking giving way call and be seen. Problem List/Past Medical History Ongoing Knee pain Historical No qualifying data Procedure/Surgical History None. Medications meloxicam 7.5 mg oral tablet, 7.5 mg= 1 tab(s), Oral, Daily, 3 refills Vitamin D3 2000 intl units oral Tab, Oral, Daily Allergies No Known Medication Allergies Social History Tobacco Never (less than 100 in lifetime) Tobacco Use:. Never Smokeless Tobacco Use:., 07/08/2020 Family History Alzheimer's disease: Father. Dementia: Father. Lung cancer: Mother. Normal [facility] Comment on above: Result Comment: Elec tronically Signed By: Ivet ELAM, Fortino Mensah\.br\Date and Time Signed: 07/08/20 13:54 EST XR Knee - left 4 Viewson IMPRESSION: DEGENERATIVE CHANGE OF BOTH KNEES GREATEST IN THE MEDIAL COMPARTMENTS LEFT GREATER THAN RIGHT Multiple Resaw Operator: ASHLEY Transcribe Date/Time: Apr 14 2020 10:32A Dictated by : ENEDINA DO MD This examination was interpreted and the report reviewed and electronically signed by: ENEDINA DO MD on Apr 14 2020 10:34AM EST DIVISION OF RADIOLOGY * * *Final Report* * * DATE OF EXAM: Apr 14 2020 10:06AM WOX 5202 - XR KNEE 4V AP/PA BOTH+LAT/YULIYA LT / PROCEDURE REASON: Acute pain of left knee * * * * Physician Interpretation * * * * HISTORY: Acute pain of left knee TECHNIQUE: 4 views left knee COMPARISON: None. RESULT: There is severe medial compartment narrowing with marginal osteophyte formation. Lateral joint space compartment is preserved with tiny lateral compartment marginal osteophyte formation. There is patellofemoral compartment marginal osteophyte formation without joint space narrowing. Small joint effusion. No acute fracture. There is moderate medial compartment narrowing of the right knee on the straight leg frontal view with small ED L and patellofemoral compartment marginal osteophytes indicating degenerative change. DIVISION OF RADIOLOGY [facility] * * *Final Report* * * DATE OF EXAM: Apr 14 2020 10:06AM WOX 5202 - XR KNEE 4V AP/PA BOTH+LAT/YULIYA LT / PROCEDURE REASON: Acute pain of left knee * * * * Physician Interpretation * * * * HISTORY: Acute pain of left knee TECHNIQUE: 4 views left knee COMPARISON: None. RESULT: There is severe medial compartment narrowing with marginal osteophyte formation. Lateral joint space compartment is preserved with tiny lateral compartment marginal osteophyte formation. There is patellofemoral compartment marginal osteophyte formation without joint space narrowing. Small joint effusion. No acute fracture. There is moderate medial compartment narrowing of the right knee on the straight leg frontal view with small ED L and patellofemoral compartment marginal osteophytes indicating degenerative change. IMPRESSION IMPRESSION: DEGENERATIVE CHANGE OF BOTH KNEES GREATEST IN THE MEDIAL COMPARTMENTS LEFT GREATER THAN RIGHT Multiple Resaw Operator: ASHLEY Transcribe Date/Time: Apr 14 2020 10:32A Dictated by : ENEDINA DO MD This examination was interpreted and the report reviewed and electronically signed by: ENEDINA DO MD on Apr 14 2020 10:34AM EST [facility] Radiology Study observation (narrative) [facility] XR Knee - left 4 ViewsOrdere d By: [facility] Provider on 04-14-2020 [facility] XR KNEE LEFT 3 VIEWS (SPECIF Y VIEWS IN COMMENTS)on 06-07-2019 XR KNEE LEFT 3 VIEWS (SPECIFY VIEWS IN COMMENTS) EXAMINATION: XR KNEE LEFT 3 VIEWS (SPECIFY VIEWS IN COMMENTS) HISTORY: Pain COMPARISON: Left knee 11/09/2018. TECHNIQUE: AP, lateral , and patellar views. FINDINGS: No fracture or dislocation is apparent. There is persistent medial and patellofemoral joint space narrowing with periarticular spurring and sclerosis consistent with prominent osteoarthritic degenerative change. This is most notable at the medial compartment. No joint calcification or prominent effusion is seen. IMPRESSION: No acute fracture or dislocation. Moderately advanced degenerative joint disease findings are apparent, being most notable involving the medial compartment. [facility]/ Workstation ID: [id number] Dictated by: LIDYA [facility] on MonJun 07, 2019 8:53:16 AM EST Transcribed by: REX GAMEZ on MonJun 07, 2019 9:11:49 AM EST Finalized by: LIDYA [facility] on MonJun 07, 2019 9:25:29 AM EST Normal [facility] Comment on above: Order Comment: Injur y/Trauma or Illness?:Illness/Other How long have you had these symptoms (acute/chronic)?:Chronic Reason for exam?:pain x 6 months no known injury History of cancer?:no Surgeries, chemotherapy, or radiation?:n/a Type of Exam?:Unknown Additional signs and symptoms?:pain x 6 months no known injury CT Abdomen/Pelvis w/ Contras ton 12-13-2018 CT Abdomen/Pelvis w/ Contrast Exam Date/Time: 12/12/2018 08:48 EDT Reason for Exam: LOWER RIGHT QUAD PAIN;Pain Report STUDY: CT Abdomen/Pelvis w/ Contrast; 12/12/2018 8:48 am INDICATION: Pain. COMPARISON: None. ACCESSION NUMBER(S): [id number] ORDERING CLINICIAN: Bijan Carrillo TECHNIQUE: Contiguous axial images were obtained at 3mm slice thickness through the abdomen and pelvis following intravenous contrast administration. Coronal and sagittal reconstructions at 3 mm slice thickness were performed. 85 ml of Omnipaque 350 were administered intravenously without immediate complication. FINDINGS: LOWER CHEST: Evaluation of the visualized lung bases is grossly unremarkable. The heart is within normal limits for size. ABDOMEN: LIVER: The liver is within normal limits for appearance, without evidence of focal masses. BILE DUCTS: No definite intra or extrahepatic biliary dilatation is identified. GALLBLADDER: The gallbladder is nondilated. No definite calcified gallstones are seen. PANCREAS: The pancreas is within normal limits for appearance, without evidence of focal masses. SPLEEN: The spleen is within normal limits for size. No focal splenic mass is seen. ADRENAL GLANDS: No definite adrenal nodules or masses are seen bilaterally. KIDNEYS AND URETERS: Exam Date/Time: 12/12/2018 08:48 EDT Report There is no hydronephrosis, hydroureter or ureteral calculus identified bilaterally. Punctate nonobstructive calcification is seen in the midpole of the left kidney. A rounded hypodensity is seen in the posterior midpole of the right kidney, measuring at up to 1.2 cm in diameter, most consistent with a cyst. PELVIS: BLADDER: The urinary bladder is grossly unremarkable for CT appearance. REPRODUCTIVE ORGANS: The uterus and ovaries are grossly unremarkable for CT appearance. BOWEL: The colon and small bowel are within normal limits for course, caliber and appearance, without evidence of wall thickening or obstruction. The appendix is decompressed. No CT evidence of acute diverticulitis or appendicitis is seen. VESSELS: The abdominal aorta is within normal limits for course, caliber and appearance, without evidence of aneurysm. PERITONEUM/RETROPERITON EUM/LYMPH NODES: There is no free intraperitoneal air or free fluid identified. No gross mesenteric or retroperitoneal lymphadenopathy is identified. BONE AND SOFT TISSUE: There is no evidence of acute fracture identified. No evidence of abdominal wall mass or hernia is identified. IMPRESSION: 1. No evidence of bowel obstruction, free intraperitoneal air or abnormal intra-abdominal fluid collection. 2. Hypodensity in the right kidney, most consistent with a cyst. 3. Punctate nonobstructive calculus in the left kidney. FINAL REPORT Dictated: 12/13/2018 11:39 am Naveen Barba MD Signed (Electronic Signature): 12/13/2018 11:39 am Signed by: Naveen Barba MD Technologist: MM, Normal [facility] BUNon 12-11-2018 Urea nitrogen [Mass/Vol] 19 mg/dL Normal - [facility] Comment on above: Performed By: #### 2 [id number] #### GEOVANNY [employer] [address] [place] [address] Creatinineon 12-11-2018 Creatinine [Mass/Vol] 0.7 mg/dL Normal 0.5-1.1 [facility] Comment on above: Performed By: #### 2 [id number] #### GEOVANNY [employer] [address] [place] [address] eGFRon 12-11-2018 GFR/1.73 sq M predicted among non-blacks MDRD (S/P/Bld) [Vol rate/Area] mL/min/{1.73_m2} Normal [facility] Comment on above: Order Comment: Order added by Discern Expert. Performed By: #### 1 [id number] #### GEOVANNY [employer] [address] [place] [address] XR KNEE LEFT 4+ VIEWS (SPECI FY VIEWS IN COMMENTS)on 11-09-2018 XR KNEE LEFT 4+ VIEWS (SPECIFY VIEWS IN COMMENTS) EXAMINATION: XR KNEE LEFT 4+ VIEWS (SPECIFY VIEWS IN COMMENTS) HISTORY: ORDERING SYSTEM PROVIDED HISTORY: knee pain, TECHNOLOGIST PROVIDED HISTORY: Illness/Other Reason for exam: pain x 6 months no known injury Cancer History: no Surgery, RadiationHistory: n/a Encounter Type: Unknown Additional signs and symptoms: pain x 6 months no known injury ORDERING SYSTEM PROVIDED DIAGNOSIS CODES: M25.569 Knee pain, unspecified chronicity, unspecified laterality COMPARISON: None. FINDINGS: Four views of the left knee. No acute fracture. Medial compartment joint space narrowing with varus angulation, near zlav-er-aflu appearance, subchondral sclerosis and moderate marginal osteophytes. Patellofemoral compartment joint space narrowing with mild marginal osteophytes. No significant joint effusions. IMPRESSION: 1. Severe medial knee compartment osteoarthritis. 2. Mild patellofemoral compartment osteoarthritis. [employer] Workstation ID: [id number] Dictated by: KHADAR SHAW on MonNov 09, 2018 2:27:40 PM EDT Transcribed by: CECILIA SOTOMAYOR on MonNov 09, 2018 2:38:29 PM EDT Finalized by: KHADAR SHAW on MonNov 09, 2018 7:25:57 PM EDT Normal [facility] Comment on above: Order Comment: Injur y/Trauma or Illness?:Illness/Other How long have you had these symptoms (acute/chronic)?:Chronic Reason for exam?:pain x 6 months no known injuey History of cancer?:no Surgeries, chemotherapy, or radiation?:n/a Type of Exam?:Unknown Additional signs and symptoms?:pain x 6 months no known injuey POCT INFLUENZA A/Bon 019 Interpretation and review of laboratory results Normal [facility] Rapid Influenza A/B Ag Negative Negative [facility] CBC AND DIFFERENTIALon 04-12 Basophils Auto #/vol (Bld) 0.0 10*3/uL Invalid Interpretation Code [facility] Basophils/100 WBC Auto (Bld) 0.9 % Invalid Interpretation Code [facility] Eosinophils Auto #/vol (Bld) 0.1 10*3/uL Invalid Interpretation Code [facility] Eosinophils/100 WBC Auto (Bld) 1.5 % Invalid Interpretation Code [facility] Erythrocyte distribution width Auto Ratio (RBC) 13.3 % Invalid Interpretation Code 10 - 14.4 % [facility] Hematocrit Auto Volume Fraction (Bld) 45.8 % High 34.4 - 44.8 % [facility] Hemoglobin mass conc (Bld) 15.4 g/dL Invalid Interpretation Code 11.6 - 15.4 g/dL [facility] Interpretation and review of laboratory results Abnormal Invalid Interpretation Code [facility] Lymphocytes Auto #/vol (Bld) 1.5 10*3/uL Invalid Interpretation Code [facility] Lymphocytes/100 WBC Auto (Bld) 30.7 % Invalid Interpretation Code [facility] MCH Auto Entitic mass (RBC) 31.1 pg Invalid Interpretation Code 27.9 - 33.9 pg [facility] MCHC Auto mass conc (RBC) 33.7 g/dL Invalid Interpretation Code 33.1 - 35.1 g/dL [facility] MCV Auto Entitic volume (RBC) 92.4 fL Invalid Interpretation Code [facility] Monocytes Auto #/vol (Bld) 0.4 10*3/uL Invalid Interpretation Code [facility] Monocytes/100 WBC Auto (Bld) 8.5 % Invalid Interpretation Code [facility] Neutrophils Auto #/vol (Bld) 2.9 10*3/uL Invalid Interpretation Code [facility] Platelet mean volume Auto Entitic volume (Bld) 9.4 fL Invalid Interpretation Code [facility] Platelets Auto #/vol (Bld) 218 10*3/uL Invalid Interpretation Code [facility] RBC Auto #/vol (Bld) 4.96 10*6/uL Invalid Interpretation Code [facility] Segmented Neut 58.4 % Invalid Interpretation Code [facility] WBC Auto #/vol (Bld) 4.9 10*3/uL Invalid Interpretation Code [facility] CBC with Diffon 04-12-2018 Basophils Auto #/vol (Bld) 0.0 K/mcL Normal 0-0.2 [facility] Comment on above: Performed By: #### L IPID, CBCDIF, CTNI, CMET, TSH, SEDR ####Unless otherwise noted, all testing performed by [address] [phone]: [id number] Director: Emilio Austin M.D. Basophils/100 WBC Auto (Bld) 0.9 % Normal [facility] Comment on above: Performed By: #### L IPID, CBCDIF, CTNI, CMET, TSH, SEDR ####Unless otherwise noted, all testing performed by [address] [phone]: [id number] Director: Emilio Austin M.D. Eosinophils Auto #/vol (Bld) 0.1 K/mcL Normal 0-0.5 [facility] Comment on above: Performed By: #### L IPID, CBCDIF, CTNI, CMET, TSH, SEDR ####Unless otherwise noted, all testing performed by [address] [phone]: [id number] Director: Emilio Austin M.D. Eosinophils/100 WBC Auto (Bld) 1.5 % Normal [facility] Comment on above: Performed By: #### L IPID, CBCDIF, CTNI, CMET, TSH, SEDR ####Unless otherwise noted, all testing performed by [address] [phone]: [id number] Director: Emilio Austin M.D. Erythrocyte distribution width Auto Ratio (RBC) 13.3 % Normal 10.0-14.4 [facility] Comment on above: Performed By: #### L IPID, CBCDIF, CTNI, CMET, TSH, SEDR ####Unless otherwise noted, all testing performed by [address] [phone]: [id number] Director: Emilio Austin M.D. Hematocrit Auto Volume Fraction (Bld) 45.8 % High 34.4-44.8 [facility] Comment on above: Performed By: #### L IPID, CBCDIF, CTNI, CMET, TSH, SEDR ####Unless otherwise noted, all testing performed by [address] [phone]: [id number] Director: Emilio Austin M.D. Hemoglobin mass conc (Bld) 15.4 g/dL Normal 11.6-15.4 [facility] Comment on above: Performed By: #### L IPID, CBCDIF, CTNI, CMET, TSH, SEDR ####Unless otherwise noted, all testing performed by [address] [phone]: [id number] Director: Emilio Austin M.D. Lymphocytes Auto #/vol (Bld) 1.5 K/mcL Normal 1.0-3.7 [facility] Comment on above: Performed By: #### L IPID, CBCDIF, CTNI, CMET, TSH, SEDR ####Unless otherwise noted, all testing performed by [address] [phone]: [id number] Director: Emilio Austin M.D. Lymphocytes/100 WBC Auto (Bld) 30.7 % Normal [facility] Comment on above: Performed By: #### L IPID, CBCDIF, CTNI, CMET, TSH, SEDR ####Unless otherwise noted, all testing performed by [address] [phone]: [id number] Director: Emilio Austin M.D. MCH Auto Entitic mass (RBC) 31.1 pg Normal 27.9-33.9 [facility] Comment on above: Performed By: #### L IPID, CBCDIF, CTNI, CMET, TSH, SEDR ####Unless otherwise noted, all testing performed by [place] [phone]: [id number] Director: Emilio Austin M.D. MCHC Auto mass conc (RBC) 33.7 g/dL Normal 33.1-35.1 [facility] Comment on above: Performed By: #### L IPID, CBCDIF, CTNI, CMET, TSH, SEDR ####Unless otherwise noted, all testing performed by [place] [phone]: [id number] Director: Emilio Austin M.D. MCV Auto Entitic volume (RBC) 92.4 fL Normal 82.6-98.9 [facility] Comment on above: Performed By: #### L IPID, CBCDIF, CTNI, CMET, TSH, SEDR ####Unless otherwise noted, all testing performed by [place] [id number]: [id number] Director: Emilio Austin M.D. Monocytes Auto #/vol (Bld) 0.4 K/mcL Normal 0.1-0.6 [facility] Comment on above: Performed By: #### L IPID, CBCDIF, CTNI, CMET, TSH, SEDR ####Unless otherwise noted, all testing performed by [place] [id number]: [id number] Director: Emilio Austin M.D. Monocytes/100 WBC Auto (Bld) 8.5 % Normal [facility] Comment on above: Performed By: #### L IPID, CBCDIF, CTNI, CMET, TSH, SEDR ####Unless otherwise noted, all testing performed by [place] [id number]: [id number] Director: Emilio Austin M.D. Neutrophils Auto #/vol (Bld) 2.9 K/mcL Normal 1.2-6.9 [facility] Comment on above: Performed By: #### L IPID, CBCDIF, CTNI, CMET, TSH, SEDR ####Unless otherwise noted, all testing performed by [address] [phone]: [id number] Director: Emilio Austin M.D. Platelet mean volume Auto Entitic volume (Bld) 9.4 fL Normal 7.0-10.6 [facility] Comment on above: Performed By: #### L IPID, CBCDIF, CTNI, CMET, TSH, SEDR ####Unless otherwise noted, all testing performed by [address] [phone]: [id number] Director: Emilio Austin M.D. Platelets Auto #/vol (Bld) 218 K/mcL Normal 162-402 [facility] Comment on above: Performed By: #### L IPID, CBCDIF, CTNI, CMET, TSH, SEDR ####Unless otherwise noted, all testing performed by [address] [phone]: [id number] Director: Emilio Austin M.D. RBC Auto #/vol (Bld) 4.96 M/mcL Normal 3.7-5.0 [facility] Comment on above: Performed By: #### L IPID, CBCDIF, CTNI, CMET, TSH, SEDR ####Unless otherwise noted, all testing performed by [address] [phone]: [id number] Director: Emilio Austin M.D. Segmented Neut % 58.4 % Normal [facility] Comment on above: Performed By: #### L IPID, CBCDIF, CTNI, CMET, TSH, SEDR ####Unless otherwise noted, all testing performed by [address] [phone]: [id number] Director: Emilio Austin M.D. WBC Auto #/vol (Bld) 4.9 K/mcL Normal 3.4-10.6 [facility] Comment on above: Performed By: #### L IPID, CBCDIF, CTNI, CMET, TSH, SEDR ####Unless otherwise noted, all testing performed by [address] [phone]: [id number] Director: Emilio Austin M.D. Cardiac Troponin-Ion -15-2 018 Troponin I.cardiac mass conc ng/mL Invalid Interpretation Code <45.0 ng/L [facility] Comment on above: Elevation of troponi n indicates some degree of myocardial necrosis but unless there is a significant rise and/or fall (if elevated) identified, it unlikely that an acute event has taken place Samples from patients routinely receiving high dose biotin therapy (100-300 mg/day) may show falsely decreased results. Please correlate clinically. Troponin I.cardiac mass conc ng/mL Normal < 45.0 [facility] Comment on above: Result Comment: Elev ation of troponin indicates some degree of myocardial necrosis butunless there is a significant rise and/or fall (if elevated) identified,it unlikely that an acute event has taken placeSamples from patients routinely receiving high dose biotin therapy(100-300 mg/day) may show falsely decreased results. Please correlateclinically. Performed By: #### L IPID, CBCDIF, CTNI, CMET, TSH, SEDR ####Unless otherwise noted, all testing performed by [address] [phone]: [id number] Director: Emilio Austin M.D. [facility] Metabolic [facility] 04-12-2018 Albumin mass conc 3.9 g/dL Invalid Interpretation Code 3.2 - 5.2 g/dL [facility] ALP enzyme act/vol 77 U/L Invalid Interpretation Code 40 - 150 U/L [facility] ALT enzyme act/vol 30 U/L Invalid Interpretation Code 14 - 65 U/L [facility] Comment on above: This test result alla ht be falsely depressed or falsely elevated on samples drawn from patients taking Sulfasalazine and Sulfapyridine. Venipuncture should occur prior to taking either of these drugs. AST enzyme act/vol 27 U/L Invalid Interpretation Code 0 - 45 U/L [facility] Comment on above: This test result alla ht be falsely depressed or falsely elevated on samples drawn from patients taking Sulfasalazine and Sulfapyridine. Venipuncture should occur prior to taking either of these drugs. Bilirubin mass conc 0.5 mg/dL Invalid Interpretation Code 0.3 - 1.2 mg/dL [facility] Calcium mass conc 9.1 mg/dL Invalid Interpretation Code 8.4 - 10.2 mg/dL [facility] Chloride molar conc 107 mmol/L Invalid Interpretation Code 98 - 108 mmol/L [facility] CO2 molar conc 28 mmol/L Invalid Interpretation Code 21 - 32 mmol/L [facility] Creatinine mass conc 0.68 mg/dL Invalid Interpretation Code 0.6 - 1.2 mg/dL [facility] GFR/1.73 sq M predicted among blacks MDRD vol rate/area (S/P/Bld) mL/min/{1.73_m2} Invalid Interpretation Code ml/min/1.73s q.m [facility] Comment on above: GFR Calc GFR/1.73 sq M predicted among non-blacks MDRD vol rate/area (S/P/Bld) mL/min/{1.73_m2} Invalid Interpretation Code ml/min/1.73s q.m [facility] Comment on above: Non- GFR Calc eGFR is an estimated Glomerular Filtration Rate based on the value of the patient's serum creatinine. In outpatients, eGFR should be used as a helpful tool in screening for CKD. In inpatients or patients with acute renal failure, eGFR represents the GFR at the moment of the draw and should be used with caution. Glucose mass conc 92 mg/dL Invalid Interpretation Code 70 - 99 mg/dL [facility] Comment on above: This test result alla ht be falsely depressed or falsely elevated on samples drawn from patients taking Sulfasalazine and Sulfapyridine. Venipuncture should occur prior to taking either of these drugs. Potassium molar conc 4.1 mmol/L Invalid Interpretation Code 3.5 - 5.1 mmol/L [facility] Protein mass conc 7.4 g/dL Invalid Interpretation Code 6 - 8 g/dL [facility] Sodium molar conc 140 mmol/L Invalid Interpretation Code 135 - 145 mmol/L [facility] Urea nitrogen mass conc 18 mg/dL Invalid Interpretation Code 8 - 25 mg/dL [facility] Albumin mass conc 3.9 g/dL Normal 3.2-5.2 [facility] Comment on above: Performed By: #### L IPID, CBCDIF, CTNI, CMET, TSH, SEDR ####Unless otherwise noted, all testing performed by [address] [phone]: [id number] Director: Emilio Austin M.D. ALP enzyme act/vol 77 U/L Normal 40-150 [facility] Comment on above: Performed By: #### L IPID, CBCDIF, CTNI, CMET, TSH, SEDR ####Unless otherwise noted, all testing performed by [address] [phone]: [id number] Director: Emilio Austin M.D. ALT enzyme act/vol 30 U/L Normal 14-65 [facility] Comment on above: Result Comment: This test result might be falsely depressed or falsely elevated onsamples drawn from patients taking Sulfasalazine and Sulfapyridine.Venipuncture should occur prior to taking either of these drugs. Performed By: #### L IPID, CBCDIF, CTNI, CMET, TSH, SEDR ####Unless otherwise noted, all testing performed by [address] [phone]: [id number] Director: Emilio Austin M.D. AST enzyme act/vol 27 U/L Normal 0-45 [facility] Comment on above: Result Comment: This test result might be falsely depressed or falsely elevated onsamples drawn from patients taking Sulfasalazine and Sulfapyridine.Venipuncture should occur prior to taking either of these drugs. Performed By: #### L IPID, CBCDIF, CTNI, CMET, TSH, SEDR ####Unless otherwise noted, all testing performed by [address] [phone]: [id number] Director: Emilio Austin M.D. Bilirubin mass conc 0.5 mg/dL Normal 0.3-1.2 [facility] Comment on above: Performed By: #### L IPID, CBCDIF, CTNI, CMET, TSH, SEDR ####Unless otherwise noted, all testing performed by [address] [phone]: [id number] Director: Emilio Austin M.D. Calcium mass conc 9.1 mg/dL Normal 8.4-10.2 [facility] Comment on above: Performed By: #### L IPID, CBCDIF, CTNI, CMET, TSH, SEDR ####Unless otherwise noted, all testing performed by [address] [phone]: [id number] Director: Emilio Austin M.D. Chloride molar conc 107 mmol/L Normal 98-108 [facility] Comment on above: Performed By: #### L IPID, CBCDIF, CTNI, CMET, TSH, SEDR ####Unless otherwise noted, all testing performed by [address] [phone]: [id number] Director: Emilio Austin M.D. CO2 molar conc 28 mmol/L Normal 21-32 [facility] Comment on above: Performed By: #### L IPID, CBCDIF, CTNI, CMET, TSH, SEDR ####Unless otherwise noted, all testing performed by [place] [phone]: [id number] Director: Emilio Austin M.D. Creatinine mass conc 0.68 mg/dL Normal 0.60-1.20 [facility] Comment on above: Performed By: #### L IPID, CBCDIF, CTNI, CMET, TSH, SEDR ####Unless otherwise noted, all testing performed by [address] [phone]: [id number] Director: Emilio Austin M.D. GFR/1.73 sq M predicted among blacks MDRD vol rate/area (S/P/Bld) mL/min/{1.73_m2} Normal [facility] Comment on above: Result Comment: Afri can Chinese GFR Calc Performed By: #### L IPID, CBCDIF, CTNI, CMET, TSH, SEDR ####Unless otherwise noted, all testing performed by [address] [phone]: [id number] Director: Emilio Austin M.D. GFR/1.73 sq M predicted among non-blacks MDRD vol rate/area (S/P/Bld) mL/min/{1.73_m2} Normal [facility] Comment on above: Result Comment: Non- GFR CalceGFR is an estimated Glomerular Filtration Rate based on the valueof the patient's serum creatinine. In outpatients, eGFR should be usedas a helpful tool in screening for CKD. In inpatients or patients withacute renal failure, eGFR represents the GFR at the moment of the drawand should be used with caution. Performed By: #### L IPID, CBCDIF, CTNI, CMET, TSH, SEDR ####Unless otherwise noted, all testing performed by [address] [phone]: [id number] Director: Emilio Austin M.D. Glucose mass conc 92 mg/dL Normal 70-99 [facility] Comment on above: Result Comment: This test result might be falsely depressed or falsely elevated onsamples drawn from patients taking Sulfasalazine and Sulfapyridine.Venipuncture should occur prior to taking either of these drugs. Performed By: #### L IPID, CBCDIF, CTNI, CMET, TSH, SEDR ####Unless otherwise noted, all testing performed by [address] [phone]: [id number] Director: Emilio Austin M.D. Potassium molar conc 4.1 mmol/L Normal 3.5-5.1 [facility] Comment on above: Performed By: #### L IPID, CBCDIF, CTNI, CMET, TSH, SEDR ####Unless otherwise noted, all testing performed by [address] [phone]: [id number] Director: Emilio Austin M.D. Protein mass conc 7.4 g/dL Normal 6.0-8.0 [facility] Comment on above: Performed By: #### L IPID, CBCDIF, CTNI, CMET, TSH, SEDR ####Unless otherwise noted, all testing performed by [address] [phone]: [id number] Director: Emilio Austin M.D. Sodium molar conc 140 mmol/L Normal 135-145 [facility] Comment on above: Performed By: #### L IPID, CBCDIF, CTNI, CMET, TSH, SEDR ####Unless otherwise noted, all testing performed by [address] [phone]: [id number] Director: Emilio Austin M.D. Urea nitrogen mass conc 18 mg/dL Normal 8-25 [facility] Comment on above: Performed By: #### L IPID, CBCDIF, CTNI, CMET, TSH, SEDR ####Unless otherwise noted, all testing performed by [address] [phone]: [id number] Director: Emilio Austin M.D. ECG 12-LEADon 04-12-2018 Atrial Rate Invalid Interpretation Code [facility] Interpretation and review of laboratory results Normal Invalid Interpretation Code [facility] P [place] Invalid Interpretation Code [facility] P-R Interval Invalid Interpretation Code [facility] Q-T Interval Invalid Interpretation Code [facility] Q-T Interval (corrected) Invalid Interpretation Code [facility] QRS Duration Invalid Interpretation Code [facility] QTC Calculation (Bezet) Invalid Interpretation Code [facility] R [place] Invalid Interpretation Code [facility] T [place] Invalid Interpretation Code [facility] Ventricular Rate Invalid Interpretation Code [facility] Lipid Panelon 04-12-2018 Cholesterol in HDL mass conc 38 mg/dL Low 40 - 59 mg/dL [facility] Cholesterol in LDL mass conc 105 mg/dL Invalid Interpretation Code 10 - 150 mg/dL [facility] Cholesterol in VLDL mass conc 24 mg/dL Invalid Interpretation Code 5 - 40 mg/dL [facility] Cholesterol mass conc 167 mg/dL Invalid Interpretation Code 100 - 199 mg/dL [facility] Cholesterol.total/Ch olesterol in HDL mass ratio 4.4 {ratio} Invalid Interpretation Code [facility] Comment on above: Female Coronary Hear t Disease Risk Factor (CHDRF): Average risk= 4.4 1/2 Average risk= 3.3 2 times Average risk= 7.1 Interpretation and review of laboratory results Abnormal Invalid Interpretation Code [facility] Triglyceride mass conc 118 mg/dL Invalid Interpretation Code 30 - 150 mg/dL [facility] Cholesterol in HDL mass conc 38 mg/dL Low 40-59 [facility] Comment on above: Performed By: #### L IPID, CBCDIF, CTNI, CMET, TSH, SEDR ####Unless otherwise noted, all testing performed by [address] [phone]: [id number] Director: Emilio Austin M.D. Cholesterol in LDL mass conc 105 mg/dL Normal 10-150 [facility] Comment on above: Performed By: #### L IPID, CBCDIF, CTNI, CMET, TSH, SEDR ####Unless otherwise noted, all testing performed by [address] [phone]: [id number] Director: Emilio Austin M.D. Cholesterol in VLDL mass conc 24 mg/dL Normal 5-40 [facility] Comment on above: Performed By: #### L IPID, CBCDIF, CTNI, CMET, TSH, SEDR ####Unless otherwise noted, all testing performed by [address] [phone]: [id number] Director: Emilio Austin M.D. Cholesterol mass conc 167 mg/dL Normal 100-199 [facility] Comment on above: Performed By: #### L IPID, CBCDIF, CTNI, CMET, TSH, SEDR ####Unless otherwise noted, all testing performed by [address] [phone]: [id number] Director: Emilio Austin M.D. Cholesterol.total/Ch olesterol in HDL mass ratio 4.4 {ratio} Normal 3.2-5.0 [facility] Comment on above: Result Comment: Kortney arthur Coronary Heart Disease Risk Factor (CHDRF):Average risk= 4.41/2 Average risk= 3.32 times Average risk= 7.1 Performed By: #### L IPID, CBCDIF, CTNI, CMET, TSH, SEDR ####Unless otherwise noted, all testing performed by [address] [phone]: [id number] Director: Emilio Austin M.D. Triglyceride mass conc 118 mg/dL Normal 30-150 [facility] Comment on above: Performed By: #### L IPID, CBCDIF, CTNI, CMET, TSH, SEDR ####Unless otherwise noted, all testing performed by [address] [phone]: [id number] Director: Emilio Austin M.D. Sed Rateon 04-12-2018 Sed Rate 9 MM/hr. Normal 0-20 [facility] Comment on above: Performed By: #### L IPID, CBCDIF, CTNI, CMET, TSH, SEDR ####Unless otherwise noted, all testing performed by [facility] [phone]: [id number] Director: Emilio Austin M.D. Sedimentation Rateon 018 Sed Rate 9 Invalid Interpretation Code [facility] TSHon 04-12-2018 Thyrotropin Qn 1.49 m[IU]/L Invalid Interpretation Code [facility] Comment on above: Samples from patient s routinely receiving high dose biotin therapy (100-300 mg/day) may show falsely decreased results. Please correlate clinically. Please note reference range change as of 03/20/18. Thyrotropin Qn 1.49 uIU/mL Normal 0.270-4.200 [facility] Comment on above: Result Comment: Samp les from patients routinely receiving high dose biotin therapy(100-300 mg/day) may show falsely decreased results. Please correlateclinically.Please note reference range change as of 03/20/18. Performed By: #### L IPID, CBCDIF, CTNI, CMET, TSH, SEDR ####Unless otherwise noted, all testing performed by [address] [phone]: [id number] Director: Emilio Austin M.D. Culture, Urineon 01-25-2018 Culture, Urine Test Name: Culture, Urine Culture Status: Final Culture Report: No Growth - Day 2 Micro Source: Urine Normal [facility] Comment on above: Performed By: #### U RCUL ####Unless otherwise noted, all testing performed by [address] [phone]: [id number] Director: Emilio Austin M.D. CBC and Differentialon 03-01 Basophils Auto #/vol (Bld) 0.0 K/mcL Invalid Interpretation Code 0 - 0.2 [facility] Basophils/100 WBC Auto (Bld) 1.0 % Invalid Interpretation Code [facility] Eosinophils Auto #/vol (Bld) 0.1 K/mcL Invalid Interpretation Code 0 - 0.5 [facility] Eosinophils/100 WBC Auto (Bld) 1.9 % Invalid Interpretation Code [facility] Erythrocyte distribution width Auto Ratio (RBC) 13.3 % Invalid Interpretation Code 10 - 14.4 % [facility] Hematocrit Auto Volume Fraction (Bld) 46.3 % High 34.4 - 44.8 % [facility] Hemoglobin mass conc (Bld) 15.7 g/dL High 11.6 - 15.4 g/dL [facility] Interpretation and review of laboratory results Abnormal Invalid Interpretation Code [facility] Lymphocytes Auto #/vol (Bld) 1.1 K/mcL Invalid Interpretation Code 1.0 - 3.7 [facility] Lymphocytes/100 WBC Auto (Bld) 25.7 % Invalid Interpretation Code [facility] MCH Auto Entitic mass (RBC) 32.0 pg Invalid Interpretation Code 27.9 - 33.9 pg [facility] MCHC Auto mass conc (RBC) 34.0 g/dL Invalid Interpretation Code 33.1 - 35.1 g/dL [facility] MCV Auto Entitic volume (RBC) 94.1 fL Invalid Interpretation Code 82.6 - 98.9 [facility] Monocytes Auto #/vol (Bld) 0.4 K/mcL Invalid Interpretation Code 0.1 - 0.6 [facility] Monocytes/100 WBC Auto (Bld) 9.9 % Invalid Interpretation Code [facility] Neutrophils Auto #/vol (Bld) 2.6 K/mcL Invalid Interpretation Code 1.2 - 6.9 [facility] Platelet mean volume Auto Entitic volume (Bld) 9.6 fL Invalid Interpretation Code 7.0 - 10.6 [facility] Platelets Auto #/vol (Bld) 185 K/mcL Invalid Interpretation Code 162 - 402 [facility] RBC Auto #/vol (Bld) 4.92 M/mcL Invalid Interpretation Code 3.7 - 5.0 [facility] Segmented Neut 61.5 % Invalid Interpretation Code [facility] WBC Auto #/vol (Bld) 4.2 K/mcL Invalid Interpretation Code 3.4 - 10.6 [facility] Comprehensive Metabolic Pane josh 03-01-2017 Albumin mass conc 3.6 g/dL Invalid Interpretation Code 3.2 - 5.2 g/dL [facility] ALP enzyme act/vol 72 U/L Invalid Interpretation Code 40 - 150 U/L [facility] ALT enzyme act/vol 19 U/L Invalid Interpretation Code 14 - 65 U/L [facility] Comment on above: This test result alla ht be falsely depressed or falsely elevated on samples drawn from patients taking Sulfasalazine and Sulfapyridine. Venipuncture should occur prior to taking either of these drugs. AST enzyme act/vol 18 U/L Invalid Interpretation Code 0 - 45 U/L [facility] Comment on above: This test result alla ht be falsely depressed or falsely elevated on samples drawn from patients taking Sulfasalazine and Sulfapyridine. Venipuncture should occur prior to taking either of these drugs. Bilirubin mass conc 0.7 mg/dL Invalid Interpretation Code 0.3 - 1.2 mg/dL [facility] Calcium mass conc 9.0 mg/dL Invalid Interpretation Code 8.4 - 10.2 mg/dL [facility] Chloride molar conc 108 mmol/L Invalid Interpretation Code 98 - 108 mmol/L [facility] CO2 molar conc 27 mmol/L Invalid Interpretation Code 21 - 32 mmol/L [facility] Creatinine mass conc 0.73 mg/dL Invalid Interpretation Code 0.6 - 1.2 mg/dL [facility] GFR/1.73 sq M predicted among blacks MDRD vol rate/area (S/P/Bld) mL/min/{1.73_m2} Invalid Interpretation Code ml/min/1.73s q.m [facility] Comment on above: GFR Calc GFR/1.73 sq M predicted among non-blacks MDRD vol rate/area (S/P/Bld) mL/min/{1.73_m2} Invalid Interpretation Code ml/min/1.73s q.m [facility] Comment on above: Non- GFR Calc eGFR is an estimated Glomerular Filtration Rate based on the value of the patient's serum creatinine. In outpatients, eGFR should be used as a helpful tool in screening for CKD. In inpatients or patients with acute renal failure, eGFR represents the GFR at the moment of the draw and should be used with caution. Glucose mass conc 98 mg/dL Invalid Interpretation Code 70 - 99 mg/dL [facility] Comment on above: This test result alla ht be falsely depressed or falsely elevated on samples drawn from patients taking Sulfasalazine and Sulfapyridine. Venipuncture should occur prior to taking either of these drugs. Potassium molar conc 4.0 mmol/L Invalid Interpretation Code 3.5 - 5.1 mmol/L [facility] Protein mass conc 7.1 g/dL Invalid Interpretation Code 6 - 8 g/dL [facility] Sodium molar conc 140 mmol/L Invalid Interpretation Code 135 - 145 mmol/L [facility] Urea nitrogen mass conc 14 mg/dL Invalid Interpretation Code 8 - 25 mg/dL [facility] Lipid Panelon 03-01-2017 Cholesterol in HDL mass conc 37 mg/dL Low 40 - 59 mg/dL [facility] Cholesterol in LDL mass conc 107 mg/dL Invalid Interpretation Code 10 - 150 mg/dL [facility] Cholesterol in VLDL mass conc 23 mg/dL Invalid Interpretation Code 5 - 40 mg/dL [facility] Cholesterol mass conc 168 mg/dL Invalid Interpretation Code 100 - 199 mg/dL [facility] Cholesterol.total/Ch olesterol in HDL mass ratio 4.5 {ratio} Invalid Interpretation Code 3.2 - 5.0 [facility] Comment on above: Female Coronary Hear t Disease Risk Factor (CHDRF): Average risk= 4.4 1/2 Average risk= 3.3 2 times Average risk= 7.1 Triglyceride mass conc 116 mg/dL Invalid Interpretation Code 25 - 120 mg/dL [facility] TSHon 03-01-2017 Thyrotropin Qn 1.19 uIU/mL Invalid Interpretation Code 0.320 - 5.000 [facility] PATHOLOGYon 02-27-2017 Ordered by an unspecified provider. [facility] PATHOLOGYon 02-24-2017 Ordered by an unspecified provider. [facility] Vital Signs Date Time Vital Sign Value Performing Clinician Facility 01-22-2025 11:28-0400 Body height 154.9 cm Vidal Jewell APRN-MARK Work Phone: [facility] 01-22-2025 11:28-0400 Body mass index (BMI) [Ratio] 23.62 kg/m2 Ivdal Fanta BAG BUILDER-DIVER HELPER Work Phone: [facility] 01-22-2025 11:28-0400 Body weight 56.7 kg Vidal Jewell BAG BUILDER-DIVER HELPER Work Phone: [facility] 01-20-2025 10:58-0400 Diastolic blood pressure 88 mm[Hg] Bhanu Meng MD Work Phone: [facility] 01-20-2025 10:58-0400 Systolic blood pressure 158 mm[Hg] Bhanu Meng MD Work Phone: [facility] 01-20-2025 10:29-0400 Body height 151.8 cm Bhanu Mneg MD Work Phone: [facility] 01-20-2025 10:29-0400 Body mass index (BMI) [Ratio] 24.89 kg/m2 Bhanu Meng MD Work Phone: [facility] 01-20-2025 10:29-0400 Body weight 57.34 kg Bhanu Meng MD Work Phone: [facility] 01-20-2025 10:29-0400 Heart rate 74 /min Bhanu Meng MD Work Phone: [facility] 01-20-2025 10:29-0400 Respiratory rate 16 /min Bhanu Meng MD Work Phone: [facility] 12-13-2024 08:16-0400 Body height 152.4 cm Carlene Saleem APRN.DIVER HELPER Work Phone: [facility] 12-13-2024 08:16-0400 Body mass index (BMI) [Ratio] 24.61 kg/m2 Carlene Saleem BAG BUILDER.DIVER HELPER Work Phone: [facility] 12-13-2024 08:16-0400 Body weight 57.15 kg Carlene Saleem BAG BUILDER.DIVER HELPER Work Phone: [facility] 12-13-2024 08:16-0400 Diastolic blood pressure 82 mm[Hg] Carlene Saleem APRN.DIVER HELPER Work Phone: [facility] 12-13-2024 08:16-0400 Systolic blood pressure 142 mm[Hg] Carlene Saleem APRN.DIVER HELPER Work Phone: [facility] 09-12-2024 08:53-0400 Body height 154.9 cm Rosalinda Barajas MD Work Phone: [facility] 09-12-2024 08:53-0400 Body mass index (BMI) [Ratio] 23.62 kg/m2 Rosalinda Barajas MD Work Phone: [facility] 09-12-2024 08:53-0400 Body temperature 97.7 [degF] Rosalinda Barajas MD Work Phone: [facility] 09-12-2024 08:53-0400 Body weight 56.7 kg Rosalinda Barajas MD Work Phone: [facility] 08-29-2024 09:12-0400 Body mass index (BMI) [Ratio] 24.14 kg/m2 Rafaela Washington APRN.DIVER HELPER Work Phone: [facility] 08-29-2024 09:12-0400 Body weight 57 kg Rafaela Washington APRN.DIVER HELPER Work Phone: [facility] 08-29-2024 09:12-0400 Diastolic blood pressure 78 mm[Hg] Rafaela Washington APRN.DIVER HELPER Work Phone: [facility] 08-29-2024 09:12-0400 Heart rate 81 /min Rafaela Washington APRN.DIVER HELPER Work Phone: [facility] 08-29-2024 09:12-0400 Systolic blood pressure 147 mm[Hg] Rafaela Washington APRN.DIVER HELPER Work Phone: [facility] 07-17-2024 13:08-0500 Body mass index (BMI) [Ratio] 24.2 kg/m2 Marilyn Hair PA-C Work Phone: [facility] 07-17-2024 13:08-0500 Body temperature 98.91 [degF] Marilyn Hair PA-C Work Phone: [facility] 07-17-2024 13:08-0500 Body weight 57.15 kg Marilyn Hair PA-C Work Phone: [facility] 07-17-2024 13:08-0500 Diastolic blood pressure 80 mm[Hg] Marilyn Hair PA-C Work Phone: [facility] 07-17-2024 13:08-0500 Heart rate 90 /min Marilyn Hair PA-C Work Phone: [facility] 07-17-2024 13:08-0500 Respiratory rate 14 /min Marilyn Hair PA-C Work Phone: [facility] 07-17-2024 13:08-0500 SaO2% (BldA) [Mass fraction] 96 % Marilyn Hair PA-C Work Phone: [facility] 07-17-2024 13:08-0500 Systolic blood pressure 138 mm[Hg] Marilyn Hair PA-C Work Phone: [facility] 05-15-2024 05:04-0500 Body height 154.9 cm Ravin Osuna DO Work Phone: [facility] 05-15-2024 05:04-0500 Body mass index (BMI) [Ratio] 24.19 kg/m2 Ravin Osuna DO Work Phone: [facility] 05-15-2024 05:04-0500 Body temperature 98.29 [degF] Ravin Osuna DO Work Phone: [facility] 05-15-2024 05:04-0500 Body weight 58.06 kg Ravin Osuna DO Work Phone: [facility] 05-15-2024 05:04-0500 Diastolic blood pressure 82 mm[Hg] Ravin Osuna DO Work Phone: [facility] 05-15-2024 05:04-0500 Heart rate 85 /min Ravin Osuna DO Work Phone: [facility] 05-15-2024 05:04-0500 Respiratory rate 18 /min Ravin Osuna DO Work Phone: [facility] 05-15-2024 05:04-0500 SaO2% (BldA) [Mass fraction] 94 % Ravin Osuna DO Work Phone: [facility] 05-15-2024 05:04-0500 Systolic blood pressure 139 mm[Hg] Ravin Osuna DO Work Phone: [facility] 02-08-2024 13:56-0400 Body height 154.9 cm [employer] Work Phone: [employer] 02-08-2024 13:56-0400 Body mass index (BMI) [Ratio] 23.62 kg/m2 [employer] Work Phone: [employer] 02-08-2024 13:56-0400 Body weight 56.7 kg [employer] Work Phone: [employer] 01-17-2024 14:00-0400 Diastolic blood pressure 59 mm[Hg] Rosalinda Barajas MD Work Phone: [employer] 01-17-2024 14:00-0400 Heart rate 75 /min Rosalinda Barajas MD Work Phone: [employer] 01-17-2024 14:00-0400 Respiratory rate 18 /min Rosalinda Barajas MD Work Phone: [employer] 01-17-2024 14:00-0400 SaO2% (BldA) [Mass fraction] 97 % Rosalinda Barajas MD Work Phone: [employer] 01-17-2024 14:00-0400 Systolic blood pressure 119 mm[Hg] Rosalinda Barajas MD Work Phone: [employer] 01-17-2024 10:00-0400 Body temperature 97.3 [degF] Rosalinda Barajas MD Work Phone: [employer] 01-17-2024 06:00-0400 Body height 154.9 cm Rosalinda Barajas MD Work Phone: [facility] 01-17-2024 06:00-0400 Body mass index (BMI) [Ratio] 24.19 kg/m2 Rosalinda Barajas MD Work Phone: [facility] 01-17-2024 06:00-0400 Body weight 58.06 kg Rosalinda Barajas MD Work Phone: [facility] 01-10-2024 09:00-0400 Diastolic blood pressure 84 mm[Hg] Bhanu Meng MD Work Phone: [facility] 01-10-2024 09:00-0400 Systolic blood pressure 138 mm[Hg] Bhanu Meng MD Work Phone: [facility] 01-10-2024 08:40-0400 Body height 153.7 cm Bhanu Meng MD Work Phone: [facility] 01-10-2024 08:40-0400 Body mass index (BMI) [Ratio] 24.2 kg/m2 Bhanu Meng MD Work Phone: [facility] 01-10-2024 08:40-0400 Body weight 57.15 kg Bhanu Meng MD Work Phone: [facility] 01-10-2024 08:40-0400 Heart rate 70 /min Bhanu Meng MD Work Phone: [facility] 01-10-2024 08:40-0400 Respiratory rate 16 /min Bhanu Meng MD Work Phone: [facility] 01-08-2024 09:38-0400 Body mass index (BMI) [Ratio] 23.81 kg/m2 Rafaela Washington APRN.DIVER HELPER Work Phone: [facility] 01-08-2024 09:38-0400 Body weight 57.15 kg Rafaela Washington APRN.DIVER HELPER Work Phone: [facility] 01-08-2024 09:38-0400 Diastolic blood pressure 62 mm[Hg] Rafaela Washington APRN.DIVER HELPER Work Phone: [facility] 01-08-2024 09:38-0400 Heart rate 74 /min Rafaela Washington BAG BUILDER.DIVER HELPER Work Phone: [facility] 01-08-2024 09:38-0400 Respiratory rate 14 /min Rafaela Washington BAG BUILDER.DIVER HELPER Work Phone: [facility] 01-08-2024 09:38-0400 Systolic blood pressure 116 mm[Hg] Rafaela Washington BAG BUILDER.DIVER HELPER Work Phone: [facility] 01-04-2024 09:17-0400 Body height 154.9 cm Larry Ena [employer] [facility] 01-04-2024 09:17-0400 Body mass index (BMI) [Ratio] 23.62 kg/m2 Larry [employer] [facility] 01-04-2024 09:17-0400 Body weight 56.7 kg Larry [employer] [facility] 01-04-2024 09:17-0400 Diastolic blood pressure 79 mm[Hg] Larry [employer]na [employer] [facility] 01-04-2024 09:17-0400 Heart rate 74 /min Larry [employer]na [employer] [facility] Comment on above: rrr 01-04-2024 09:17-0400 Respiratory rate 18 /min Larry Ena [employer] [facility] Comment on above: cta 01-04-2024 09:17-0400 SaO2% (BldA) [Mass fraction] 98 % Larry [employer] [facility] 01-04-2024 09:17-0400 Systolic blood pressure 170 mm[Hg] Larry [employer]na [employer] [facility] 12-28-2023 09:50-0400 Body height 154.9 cm Rosalinda Barajas MD Work Phone: [facility] 12-28-2023 09:50-0400 Body mass index (BMI) [Ratio] 23.62 kg/m2 Rosalinda Barajas MD Work Phone: [facility] 12-28-2023 09:50-0400 Body weight 56.7 kg Rosalinda Barajas MD Work Phone: [facility] 12-05-2023 08:12-0400 Diastolic blood pressure 84 mm[Hg] Marilyn Hair PA-C Work Phone: [facility] Comment on above: bp average with machine 12-05-2023 08:12-0400 Heart rate 68 /min Marilyn Hair PA-C Work Phone: [facility] 12-05-2023 08:12-0400 Systolic blood pressure 162 mm[Hg] Marilyn Hair PA-C Work Phone: [facility] Comment on above: bp average with machine 12-05-2023 07:58-0400 Body mass index (BMI) [Ratio] 24 kg/m2 Marilyn Hair PA-C Work Phone: [facility] 12-05-2023 07:58-0400 Body temperature 98.2 [degF] Marilyn Hair PA-C Work Phone: [facility] 12-05-2023 07:58-0400 Body weight 57.61 kg Marilyn Hair PA-C Work Phone: [facility] 12-05-2023 07:58-0400 Respiratory rate 16 /min Marilyn Hair PA-C Work Phone: [facility] 12-05-2023 07:58-0400 SaO2% (BldA) [Mass fraction] 97 % Marilyn Hair PA-C Work Phone: [facility] 11-06-2023 09:54-0400 Body mass index (BMI) [Ratio] 23.81 kg/m2 Bhanu Meng MD Work Phone: [facility] 11-06-2023 09:54-0400 Body weight 57.15 kg Bhanu Meng MD Work Phone: [facility] 11-06-2023 09:54-0400 Diastolic blood pressure 88 mm[Hg] Bhanu Meng MD Work Phone: [facility] Comment on above: Home BP machine 11-06-2023 09:54-0400 Heart rate 73 /min Bhanu Meng MD Work Phone: [facility] 11-06-2023 09:54-0400 Respiratory rate 16 /min Bhanu Meng MD Work Phone: [facility] 11-06-2023 09:54-0400 Systolic blood pressure 147 mm[Hg] Bhanu Meng MD Work Phone: [facility] Comment on above: Home BP machine 10-31-2023 11:45-0400 Diastolic blood pressure 80 mm[Hg] Saurabh Wetzel MD Work Phone: [facility] 10-31-2023 11:45-0400 Heart rate 78 /min Saurabh Wetzel MD Work Phone: [facility] 10-31-2023 11:45-0400 SaO2% (BldA) [Mass fraction] 97 % Saurabh Wetzel MD Work Phone: [facility] 10-31-2023 11:45-0400 Systolic blood pressure 132 mm[Hg] Saurabh Wetzel MD Work Phone: [facility] 10-31-2023 11:00-0400 Body mass index (BMI) [Ratio] 24 kg/m2 Saurabh Wetzel MD Work Phone: [facility] 10-31-2023 11:00-0400 Body weight 57.61 kg Saurabh Wetzel MD Work Phone: [facility] 10-12-2023 21:06-0400 Body height 154.9 cm Vidal Sanchez MD Work Phone: [facility] 10-12-2023 21:06-0400 Body mass index (BMI) [Ratio] 24.19 kg/m2 Vidal Sanchez MD Work Phone: [facility] 10-12-2023 21:06-0400 Body temperature 98.6 [degF] Vidal Sanchez MD Work Phone: [facility] 10-12-2023 21:06-0400 Body weight 58.06 kg Vidal Sanchez MD Work Phone: [facility] 10-12-2023 21:06-0400 Diastolic blood pressure 81 mm[Hg] Vidal Sanchez MD Work Phone: [facility] 10-12-2023 21:06-0400 Heart rate 76 /min Vidal Sanchez MD Work Phone: [facility] 10-12-2023 21:06-0400 Respiratory rate 18 /min Vidal Sanchez MD Work Phone: [facility] 10-12-2023 21:06-0400 SaO2% (BldA) [Mass fraction] 95 % Vidal Sanchez MD Work Phone: [facility] 10-12-2023 21:06-0400 Systolic blood pressure 144 mm[Hg] Vidal Sanchez MD Work Phone: [facility] 10-05-2023 10:22-0400 Diastolic blood pressure 80 mm[Hg] Bhanu Meng MD Work Phone: [facility] 10-05-2023 10:22-0400 Systolic blood pressure 138 mm[Hg] Bhanu Meng MD Work Phone: [facility] 10-05-2023 09:47-0400 Body height 154.9 cm Bhanu Meng MD Work Phone: [facility] 10-05-2023 09:47-0400 Body mass index (BMI) [Ratio] 23.81 kg/m2 Bhanu Meng MD Work Phone: [facility] 10-05-2023 09:47-0400 Body weight 57.15 kg Bhanu Meng MD Work Phone: [facility] 10-05-2023 09:47-0400 Heart rate 75 /min Bhanu Meng MD Work Phone: [facility] 08-11-2023 13:24-0400 Body weight 57.61 kg Saurabh Wetzel MD Work Phone: [facility] 08-11-2023 13:24-0400 Diastolic blood pressure 76 mm[Hg] Saurabh Wetzel MD Work Phone: [facility] 08-11-2023 13:24-0400 Systolic blood pressure 142 mm[Hg] Saurabh Wetzel MD Work Phone: [facility] 07-25-2023 10:02-0500 Diastolic blood pressure 80 mm[Hg] Bhanu Meng MD Work Phone: [facility] 07-25-2023 10:02-0500 Systolic blood pressure 132 mm[Hg] Bhanu Meng MD Work Phone: [facility] 07-25-2023 09:12-0500 Body weight 58.51 kg Bhanu Meng MD Work Phone: [facility] 07-25-2023 09:12-0500 Heart rate 82 /min Bhanu Meng MD Work Phone: [facility] 07-25-2023 09:12-0500 Respiratory rate 16 /min Bhanu Meng MD Work Phone: [facility] 07-21-2023 08:42-0500 Body height 154.9 cm Lidya Champion MD Work Phone: [facility] 07-21-2023 08:42-0500 Body temperature 98.6 [degF] Lidya Champion MD Work Phone: [facility] 07-21-2023 08:42-0500 Body weight 58.06 kg Lidya Champion MD Work Phone: [facility] 07-21-2023 08:42-0500 Diastolic blood pressure 72 mm[Hg] Lidya Champion MD Work Phone: [facility] 07-21-2023 08:42-0500 Heart rate 106 /min Lidya Champion MD Work Phone: [facility] 07-21-2023 08:42-0500 SaO2% (BldA) [Mass fraction] 95 % Lidya Champion MD Work Phone: [facility] 07-21-2023 08:42-0500 Systolic blood pressure 130 mm[Hg] Lidya Champion MD Work Phone: [facility] 07-10-2023 13:49-0500 Body height 154.9 cm Sandy Moises BAG BUILDER.DIVER HELPER Work Phone: [facility] 07-10-2023 13:49-0500 Body weight 58.06 kg Sandy Moises BAG BUILDER.DIVER HELPER Work Phone: [facility] 07-10-2023 13:49-0500 Diastolic blood pressure 74 mm[Hg] Sandy Moises BAG BUILDER.DIVER HELPER Work Phone: [facility] 07-10-2023 13:49-0500 Systolic blood pressure 118 mm[Hg] Sandy Moises BAG BUILDER.DIVER HELPER Work Phone: [facility] 06-29-2023 09:23-0500 Body weight 58.06 kg Rafaela Washington BAG BUILDER.DIVER HELPER Work Phone: [facility] 06-29-2023 09:23-0500 Diastolic blood pressure 80 mm[Hg] Rafaela Washington BAG BUILDER.DIVER HELPER Work Phone: [facility] 06-29-2023 09:23-0500 Heart rate 82 /min Rafaela Ron BAG BUILDER.DIVER HELPER Work Phone: [facility] 06-29-2023 09:23-0500 Respiratory rate 14 /min Rafaela Washington BAG BUILDER.DIVER HELPER Work Phone: [facility] 06-29-2023 09:23-0500 Systolic blood pressure 150 mm[Hg] Rafaela Washington BAG BUILDER.DIVER HELPER Work Phone: [facility] 05-21-2023 06:04-0500 Diastolic blood pressure 85 mm[Hg] Chris Duran DO Work Phone: [facility] 05-21-2023 06:04-0500 Heart rate 65 /min Chris Duran DO Work Phone: [facility] 05-21-2023 06:04-0500 Respiratory rate 18 /min Chris Duran DO Work Phone: 6(872)115-938856 [place] [address] 05-21-2023 06:04-0500 SaO2% (BldA) [Mass fraction] 98 % Chris Duran DO Work Phone: 4(944)547-107356 [place] [address] 05-21-2023 06:04-0500 Systolic blood pressure 159 mm[Hg] Chris Duran DO Work Phone: 4(811)610-909156 [place] [address] 05-21-2023 03:17-0500 Body height 154.9 cm Chris Duran DO Work Phone: 6(592)718-935756 [place] [address] 05-21-2023 03:17-0500 Body mass index (BMI) [Ratio] 24.37 kg/m2 Chris Duran DO Work Phone: 8(962)755-842716 [address] 05-21-2023 03:17-0500 Body temperature 98.01 [degF] Chris Duran DO Work Phone: 2(664)625-668156 [place] [address] 05-21-2023 03:17-0500 Body weight 58.51 kg Chris Duran DO Work Phone: 3(366)724-071456 [place] [address] 04-22-2023 03:00-0500 Diastolic blood pressure 86 mm[Hg] Chris Duran DO Work Phone: 1(536)918-213256 [place] [address] 04-22-2023 03:00-0500 Heart rate 76 /min Chris Duran DO Work Phone: 7(033)310-666456 [place] [address] 04-22-2023 03:00-0500 Respiratory rate 18 /min Chris Duran DO Work Phone: 7(684)422-277556 [place] [address] 04-22-2023 03:00-0500 SaO2% (BldA) [Mass fraction] 94 % Chris Duran DO Work Phone: 9(201)112-060456 [place] [address] 04-22-2023 03:00-0500 Systolic blood pressure 134 mm[Hg] Chris Duran DO Work Phone: 4(554)712-762556 [place] [address] 04-22-2023 01:20-0500 Body height 154.9 cm Chris Duran DO Work Phone: 2(508)829-311056 [place] [address] 04-22-2023 01:20-0500 Body mass index (BMI) [Ratio] 22.67 kg/m2 Chris Duran DO Work Phone: [facility] 04-22-2023 01:20-0500 Body temperature 98.4 [degF] Chris Guadarramaft DO Work Phone: [facility] 04-22-2023 01:20-0500 Body weight 54.43 kg Chris Guadarramaft DO Work Phone: [facility] 02-20-2023 08:50-0400 Diastolic blood pressure 78 mm[Hg] Marilyn Hair PA-C Work Phone: [facility] 02-20-2023 08:50-0400 Systolic blood pressure 133 mm[Hg] Marilyn Hair PA-C Work Phone: [facility] 02-20-2023 08:38-0400 Heart rate 75 /min Marilyn Hair PA-C Work Phone: [facility] 02-20-2023 08:25-0400 Body temperature 98.1 [degF] Marilyn Hair PA-C Work Phone: [facility] 02-20-2023 08:25-0400 Body weight 58.97 kg Marilyn Hair PA-C Work Phone: [facility] 02-20-2023 08:25-0400 Respiratory rate 16 /min Marilyn Hair PA-C Work Phone: [facility] 01-20-2023 08:31-0400 Diastolic blood pressure 86 mm[Hg] Marilyn Hair PA-C Work Phone: [facility] 01-20-2023 08:31-0400 Heart rate 73 /min Marilyn Hair PA-C Work Phone: [facility] 01-20-2023 08:31-0400 Systolic blood pressure 161 mm[Hg] Marilyn Hair PA-C Work Phone: [facility] 01-20-2023 08:02-0400 Body temperature 97.2 [degF] Marilyn Hair PA-C Work Phone: [facility] 01-20-2023 08:02-0400 Body weight 58.51 kg Marilyn Hair PA-C Work Phone: [facility] 01-20-2023 08:02-0400 Respiratory rate 16 /min Marilyn Hair PA-C Work Phone: [facility] 11-10-2022 10:50-0400 Body temperature 98.01 [degF] Rafaela Washingotn BAG BUILDER.DIVER HELPER Work Phone: [facility] 11-10-2022 10:50-0400 Body weight 58.06 kg Rafaela Washington BAG BUILDER.DIVER HELPER Work Phone: [facility] 11-10-2022 10:50-0400 Diastolic blood pressure 78 mm[Hg] Rafaela Washington BAG BUILDER.DIVER HELPER Work Phone: [facility] 11-10-2022 10:50-0400 Heart rate 74 /min Rafaela Washington BAG BUILDER.DIVER HELPER Work Phone: [facility] 11-10-2022 10:50-0400 Respiratory rate 14 /min Rafaela Washington BAG BUILDER.DIVER HELPER Work Phone: [facility] 11-10-2022 10:50-0400 SaO2% (BldA) [Mass fraction] 96 % Rafaela Washington BAG BUILDER.DIVER HELPER Work Phone: [facility] 11-10-2022 10:50-0400 Systolic blood pressure 120 mm[Hg] Rafaela Washington BAG BUILDER.DIVER HELPER Work Phone: [facility] 08-12-2022 09:16-0400 Diastolic blood pressure 88 mm[Hg] Marilyn Hair PA-C Work Phone: [facility] 08-12-2022 09:16-0400 Systolic blood pressure 147 mm[Hg] Marilyn Hair PA-C Work Phone: [facility] 08-12-2022 08:08-0400 Body weight 58.06 kg Marilynnitza Hair PA-C Work Phone: [facility] 08-12-2022 08:08-0400 Heart rate 70 /min Marilyn Hair PA-C Work Phone: [facility] 08-12-2022 08:08-0400 Respiratory rate 16 /min Marilyn Hair PA-C Work Phone: [facility] 08-12-2022 08:08-0400 SaO2% (BldA) [Mass fraction] 99 % Marilyn Hair PA-C Work Phone: [facility] 07-18-2022 08:29-0500 Diastolic blood pressure 86 mm[Hg] Marilny Hair PA-C Work Phone: [facility] 07-18-2022 08:29-0500 Systolic blood pressure 158 mm[Hg] Marilyn Hair PA-C Work Phone: [facility] 07-18-2022 08:27-0500 Body weight 58.06 kg Marilyn Hair PA-C Work Phone: [facility] 07-18-2022 08:27-0500 Heart rate 76 /min Marilyn Hair PA-C Work Phone: [facility] 07-18-2022 08:27-0500 Respiratory rate 16 /min Marilyn Hair PA-C Work Phone: [facility] 07-18-2022 08:27-0500 SaO2% (BldA) [Mass fraction] 98 % Marilyn Hair PA-C Work Phone: [facility] 03-07-2022 23:40-0400 Diastolic blood pressure 89 mm[Hg] Bhanu Meng Other Phone: [facility] 03-07-2022 23:40-0400 Heart rate 90 /min Bhanu Meng Other Phone: [facility] 03-07-2022 23:40-0400 Respiratory rate 16 /min Bhanu Meng Other Phone: [facility] 03-07-2022 23:40-0400 SaO2% (BldA) [Mass fraction] 96 % Bhanu Meng Other Phone: [facility] 03-07-2022 23:40-0400 Systolic blood pressure 136 mm[Hg] Bhanu Meng Other Phone: [facility] 03-07-2022 22:12-0400 Body height 154.9 cm Bhanu Meng Other Phone: [facility] 03-07-2022 22:12-0400 Body temperature 98.96 [degF] Bhanu Meng Other Phone: [facility] 03-07-2022 22:12-0400 Body weight 56 kg Bhanu Meng Other Phone: [facility] 12-23-2021 09:21-0400 Body weight 57.61 kg Marilyn Hair PA-C Work Phone: [facility] 12-23-2021 09:21-0400 Diastolic blood pressure 82 mm[Hg] Marilyn Hair PA-C Work Phone: [facility] 12-23-2021 09:21-0400 Heart rate 72 /min Marilyn Hair PA-C Work Phone: [facility] 12-23-2021 09:21-0400 Respiratory rate 16 /min Marilyn Hair PA-C Work Phone: [facility] 12-23-2021 09:21-0400 Systolic blood pressure 148 mm[Hg] Marilyn Hair PA-C Work Phone: [facility] 11-26-2021 10:00-0400 Body weight 56.25 kg Marilyn Hair PA-C Work Phone: [facility] 11-26-2021 10:00-0400 Diastolic blood pressure 88 mm[Hg] Marilyn Reginaldo PA-C Work Phone: [facility] 11-26-2021 10:00-0400 Heart rate 72 /min Marilyn Hair PA-C Work Phone: [facility] 11-26-2021 10:00-0400 Respiratory rate 14 /min Marilyn Hair PA-C Work Phone: [facility] 11-26-2021 10:00-0400 Systolic blood pressure 158 mm[Hg] Marilyn Hair PA-C Work Phone: [facility] 11-23-2021 11:20-0400 Diastolic blood pressure 84 mm[Hg] Marilyn Hair PA-C Work Phone: [facility] 11-23-2021 11:20-0400 Heart rate 70 /min Marilyn Hair PA-C Work Phone: [facility] 11-23-2021 11:20-0400 Systolic blood pressure 159 mm[Hg] Marilyn Hair PA-C Work Phone: [facility] 11-23-2021 10:10-0400 Body height 153.5 cm Marilyn Hair PA-C Work Phone: [facility] 11-23-2021 10:10-0400 Body temperature 98.49 [degF] Marilyn Hair PA-C Work Phone: [facility] 11-23-2021 10:10-0400 Body weight 56.7 kg Marilyn Hair PA-C Work Phone: [facility] 11-23-2021 10:10-0400 Respiratory rate 16 /min Marilynnitza Hair PA-C Work Phone: [facility] 03-08-2021 11:12-0400 Diastolic blood pressure 80 mm[Hg] Bhanu Meng Other Phone: [facility] 03-08-2021 11:12-0400 Heart rate 78 /min Bhanu Meng Other Phone: [facility] 03-08-2021 11:12-0400 SaO2% (BldA) [Mass fraction] 98 % Bhanu Meng Other Phone: [facility] 03-08-2021 11:12-0400 Systolic blood pressure 130 mm[Hg] Bhanu Meng Other Phone: [facility] 03-08-2021 09:46-0400 Body height 154.9 cm Bhanu Meng Other Phone: [facility] 03-08-2021 09:46-0400 Body temperature 95.36 [degF] Bhanu Meng Other Phone: [facility] 11-16-2020 08:57-0400 Diastolic blood pressure 88 mm[Hg] Bhanu Meng Other Phone: [facility] 11-16-2020 08:57-0400 Heart rate 76 /min Bhanu Meng Other Phone: [facility] 11-16-2020 08:57-0400 Systolic blood pressure 169 mm[Hg] Bhanu Meng Other Phone: [facility] 11-16-2020 07:51-0400 Body height 154.9 cm Bhanu Meng Other Phone: [facility] 11-16-2020 07:51-0400 Body temperature 98.24 [degF] Bhanu Meng Other Phone: [facility] 11-16-2020 07:51-0400 Body weight 56.4 kg Bhanu Meng Other Phone: [facility] 11-16-2020 07:51-0400 Respiratory rate 16 /min Bhanu Meng Other Phone: [facility] 11-16-2020 07:51-0400 SaO2% (BldA) [Mass fraction] 96 % Bhanu Meng Other Phone: [facility] 10-27-2020 10:31-0400 Body temperature 97.7 [degF] Dennys Banegas MD Work Phone: [facility] 10-27-2020 10:31-0400 Diastolic blood pressure 92 mm[Hg] Dennys Banegas MD Work Phone: [facility] 10-27-2020 10:31-0400 Heart rate 67 /min Dennys Banegas MD Work Phone: [facility] 10-27-2020 10:31-0400 Respiratory rate 16 /min Dennys Banegas MD Work Phone: [facility] 10-27-2020 10:31-0400 SaO2% (BldA) [Mass fraction] 96 % Dennys Banegas MD Work Phone: [facility] 10-27-2020 10:31-0400 Systolic blood pressure 157 mm[Hg] Dennys Banegas MD Work Phone: [facility] 10-30-2018 10:12-0400 BMI (Body Mass Index) 23.43 kg/m2 [facility] 10-30-2018 10:12-0400 Body Temperature 97.9 [degF] [facility] 10-30-2018 10:12-0400 BP Diastolic 77 mm[Hg] [facility] 10-30-2018 10:12-0400 BP Systolic 137 mm[Hg] [facility] 10-30-2018 10:12-0400 Height 154.9 cm [facility] 10-30-2018 10:12-0400 Pulse (Heart Rate) 78 /min [facility] 10-30-2018 10:12-0400 Pulse Oximetry 98 % [facility] 10-30-2018 10:12-0400 Respiratory Rate 18 /min [facility] 10-30-2018 10:12-0400 Weight 56.25 kg [facility] 10-19-2018 13:55-0400 BMI (Body Mass Index) 23.24 kg/m2 Basilio Pitts [facility] 10-19-2018 13:55-0400 Body Temperature 98.01 [degF] Basilio Pitts [facility] 10-19-2018 13:55-0400 BP Diastolic 77 mm[Hg] Basilio Pitts [facility] 10-19-2018 13:55-0400 BP Systolic 130 mm[Hg] Basilio Pitts [facility] 10-19-2018 13:55-0400 Height 154.9 cm Basilio Pitts [facility] 10-19-2018 13:55-0400 Pulse (Heart Rate) 66 /min Basilio Pitts [facility] 10-19-2018 13:55-0400 Pulse Oximetry 98 % Basilio Pitts [facility] 10-19-2018 13:55-0400 Respiratory Rate 18 /min Basilio Pitts [facility] 10-19-2018 13:55-0400 Weight 55.79 kg Basilio Pitts [facility] 06-14-2018 09:16-0500 BMI (Body Mass Index) 23.24 kg/m2 [facility] 06-14-2018 09:16-0500 Body Temperature 97.5 [degF] [facility] 06-14-2018 09:16-0500 BP Diastolic 73 mm[Hg] [facility] 06-14-2018 09:16-0500 BP Systolic 128 mm[Hg] [facility] 06-14-2018 09:16-0500 Height 154.9 cm [facility] 06-14-2018 09:16-0500 Pulse (Heart Rate) 85 /min [facility] 06-14-2018 09:16-0500 Pulse Oximetry 95 % [facility] 06-14-2018 09:16-0500 Respiratory Rate 16 /min [facility] 06-14-2018 09:16-0500 Weight 55.79 kg [facility] 06-13-2018 08:14-0500 BMI (Body Mass Index) 23.24 kg/m2 [facility] 06-13-2018 08:14-0500 Body Temperature 97.81 [degF] [facility] 06-13-2018 08:14-0500 Body weight 55.79 kg [facility] 06-13-2018 08:14-0500 BP Diastolic 82 mm[Hg] [facility] 06-13-2018 08:14-0500 BP Systolic 131 mm[Hg] [facility] 06-13-2018 08:14-0500 Height 154.9 cm [facility] 06-13-2018 08:14-0500 Pulse (Heart Rate) 74 /min [facility] 06-13-2018 08:14-0500 Pulse Oximetry 97 % [facility] 06-13-2018 08:14-0500 Respiratory Rate 18 /min [facility] 04-12-2018 10:00-0500 BP Diastolic 80 mm[Hg] [facility] 04-12-2018 10:00-0500 BP Systolic 128 mm[Hg] [facility] 04-12-2018 09:14-0500 BMI (Body Mass Index) 23.24 kg/m2 [facility] 04-12-2018 09:14-0500 Height 154.9 cm [facility] 04-12-2018 09:14-0500 Weight 55.79 kg [facility] 02-27-2017 08:51-0400 BMI (Body Mass Index) 23.26 kg/m2 [facility] 02-27-2017 08:51-0400 Body Temperature 95.4 [degF] [facility] 02-27-2017 08:51-0400 Body weight 55.84 kg Fortino Chakraborty MD Work Phone: [facility] 02-27-2017 08:51-0400 BP Diastolic 75 mm[Hg] [facility] 02-27-2017 08:51-0400 BP Systolic 164 mm[Hg] Fortino Ivet [facility] 02-27-2017 08:51-0400 [facility] 02-27-2017 08:51-0400 Pulse (Heart Rate) 67 /min [facility] 02-27-2017 08:51-0400 Respiratory Rate 18 /min [facility] 02-27-2017 08:51-0400 Weight 55.84 kg Fortino Gonzalesna [facility] Work Phone: 12-22-2016 11:38-0400 BMI (Body Mass Index) 23.05 kg/m2 Fortino Chakraborty [facility] Work Phone: 12-22-2016 11:38-0400 Body Temperature 98.4 [degF] Fortino Chakraborty [facility] Work Phone: 12-22-2016 11:38-0400 BP Diastolic 76 mm[Hg] Fortino Chakraborty [facility] Work Phone: 12-22-2016 11:38-0400 BP Systolic 148 mm[Hg[facility] 12-22-2016 11:38-0400 Height 154.9 [facility] 12-22-2016 11:38-0400 Pulse (Heart Rate) 67 /[facility] 12-22-2016 11:38-0400 Pulse Oximetry 97 % Fortino Chakraborty [facility] Work Phone: 12-22-2016 11:38-0400 Respiratory Rate 16 /min Fortino Chakraborty [facility] Work Phone: 12-22-2016 11:38-0400 Weight 55.34 kg Fortino Chakraborty [facility] Work Phone: Encounters Encounter Date Encounter Type Care Provider Facility Start: 03-20-2025 ambulatory Bhanu Meng Facility :[facility] Start: 03-18-2025 ambulatory Carlene Saleem Facility:[facility] Start: 03-03-2025 End: 03-03-2025 Patient encounter procedure Rosalio Solomon DO -[facility] Work Phone: Start: 03-03-2025 End: 03-03-[address] Bhanu Meng MD Work Phone: -[facility] Start: 02-25-2025 Registered Recurring Carlene Saleem [employer]ER- C -Physical Therapy Work Phone: Start: 01-22-2025 End: 01-22-2025 Office outpatient visit 15 minutes Vidal BHAKTA Work Phone: [facility] Comment on above: Hx of total knee art hroplasty, left (Primary Dx) Start: 01-22-2025 ambulatory VIDAL JEWELL [facility] Start: 01-22-2025 End: 01-22-2025 Subsequent hospital visit by physician Vidal BHAKTA Work Phone: [facility] Start: 01-21-2025 End: 01-21-2025 Follow-up encounter Bhanu Meng MD Work Phone: [facility] [place] Comment on above: Results Start: 01-20-2025 End: 01-20-2025 Patient encounter procedure Bhanu Meng MD Work Phone: [facility] [place] Comment on above: Medicare annual well ness visit, subsequent (Primary Dx); Hypertension, essential; Dyslipidemia; Elevated fasting glucose; Low serum vitamin B12; Paresthesia; Family history of thyroid disease; Advance directive discussed with patient; Age-related osteoporosis without current pathological fracture; Encounter for screening examination for other mental health and behavioral disorders; Screening for depression Start: 01-20-2025 End: 01-20-2025 ambulatory BHANU MENG Facility:[facility] Start: 01-08-2025 End: 01-08-2025 Follow-up encounter Marilyn Hair PA-C Work Phone: [facility] [place] Start: 01-08-2025 ambulatory MARILYN Jacinto ty:[facility] Start: 01-08-2025 End: 01-08-2025 Subsequent hospital visit by physician [facility] Start: 12-16-2024 End: 12-16-2024 Follow-up encounter Marilyn Hair PA-C Work Phone: [facility] [place] Comment on above: mamm results Start: 12-16-2024 End: 12-16-2024 Telephone encounter Delvin Saleh MD Mammography Comment on above: Mammogram Result Gurjit l Back Start: 12-13-2024 End: 12-13-2024 Telephone encounter Carlene Saleem APRN.CNP Work Phone: OB/Gynecology Comment on above: Appointment Start: 12-13-2024 End: 12-13-2024 Patient encounter procedure Carlene Saleem APRN.CNP Work Phone: OB/Gynecology Comment on above: Encounter for gyneco logical examination (general) (routine) without abnormal findings (Primary Dx); Encounter for screening for human papillomavirus (HPV); Pap smear for cervical cancer screening; Encounter for screening mammogram for breast cancer; Uterovaginal prolapse, unspecified Start: 12-13-2024 End: 12-13-2024 Patient encounter status Carlene Saleem DIVER HELPER Work Phone: [facility] Work Phone: Start: 12-13-2024 End: 12-13-2024 ambulatory CARLENE SALEEM Facility:[facility] Start: 12-13-2024 Encounter for gynecological examination (general) (routine) without abnormal findings CARLENE SALEEM [facility] Start: 12-13-2024 End: 12-13-2024 Subsequent hospital visit by physician Screen Mammo [facility] Comment on above: Encounter for screen ing mammogram for breast cancer [Z12.31] Start: 09-12-2024 End: 09-12-2024 Office outpatient visit 15 minutes Rosalinda Barajas MD Work Phone: [facility] Orthopedics Comment on above: History of total kne e arthroplasty, left (Primary Dx) Start: 09-12-2024 End: 09-12-2024 Subsequent hospital visit by physician Rosalinda Barajas MD Work Phone: [facility] Rad[facility] Start: 09-12-2024 ambulatory ROSALINDA BARAJAS [facility] Start: 09-02-2024 End: 09-02-2024 Telephone encounter Bhanu Meng MD Work Phone: [facility] [place] Comment on above: Medication Problem Start: 08-29-2024 End: 08-29-2024 Patient encounter procedure Rafaela Washington APRN.DIVER HELPER Work Phone: [facility] [place] Comment on above: Hypertension, essent ial (Primary Dx); Encounter for screening mammogram for breast cancer; Scalp cyst Start: 08-29-2024 End: 08-29-2024 ambulatory RAFAELA WASHINGTON Facility:[facility] Start: 07-17-2024 End: 07-17-2024 Patient encounter procedure Marilyn Hair PA-C Work Phone: [facility] [place] Comment on above: Hypertension, essent ial (Primary Dx); Gastroesophageal reflux disease without esophagitis; Encounter for screening mammogram for breast cancer; Asymptomatic menopause; Paresthesia; Elevated fasting glucose; Low serum vitamin B12; Dyslipidemia; Medication management Start: 07-17-2024 End: 07-17-2024 ambulatory MARILYN REGINALDO Facility:[facility] Start: 07-12-2024 End: 07-12-2024 Telephone encounter Michael Wetzel MA Family Medicine [place] rosario Comment on above: Appointment Start: 07-12-2024 End: 07-12-2024 ambulatory BHANU MENG Facility:[facility] Start: 05-15-2024 End: 05-15-2024 Emergency department patient visit Ravin Osuna DO Work Phone: [facility] Emergency Medicine Comment on above: Viral URI (Primary D x) Start: 04-04-2024 End: 04-04-2024 ambulatory [facility] Start: 03-26-2024 End: 03-26-2024 ambulatory [facility] Start: 03-19-2024 End: 03-19-2024 ambulatory [facility] Start: 03-14-2024 End: 03-14-2024 ambulatory [facility] Start: 03-12-2024 End: 03-12-2024 ambulatory [facility] Start: 03-07-2024 End: 03-07-2024 ambulatory [facility] Start: 03-05-2024 End: 03-05-2024 ambulatory [facility] Start: 02-29-2024 End: 02-29-2024 ambulatory [facility] Start: 02-27-2024 End: 02-27-2024 ambulatory [facility] Start: 02-26-2024 End: 02-26-2024 Refill Bhanu Meng MD Work Phone: [facility] [place] Comment on above: Refill Request Start: 02-22-2024 End: 02-22-2024 ambulatory [facility] Start: 02-20-2024 End: 02-20-2024 ambulatory [facility] Start: 02-15-2024 End: 02-15-2024 ambulatory [facility] Start: 02-12-2024 End: 02-12-2024 ambulatory [facility] Start: 02-08-2024 End: 02-08-2024 Postop follow up visit related to original px Vidal Jewell APRN-DIVER HELPER Work Phone: [facility] Orthopedics Comment on above: Hx of total knee art hroplasty, right (Primary Dx) Start: 02-08-2024 End: 02-08-2024 Subsequent hospital visit by physician Vidal Jewell APRN-DIVER HELPER Work Phone: [facility] Start: 02-08-2024 ambulatory VIDAL JEWELL [facility] Start: 01-17-2024 End: 01-17-2024 Patient encounter status Rosalinda Barajas MD Work Phone: [facility] Start: 01-17-2024 End: 01-17-2024 Subsequent hospital visit by physician Rosalinda Barajas MD Work Phone: [facility] Periop Comment on above: Osteoarthritis of le ft knee, unspecified osteoarthritis type Start: 01-10-2024 Telephone encounter Bhanu Meng MD Work Phone: [facility] [place] Comment on above: Results Start: 01-10-2024 End: 01-10-2024 Patient encounter procedure Bhanu Meng MD Work Phone: [facility] [place] Comment on above: Medicare annual well ness visit, subsequent (Primary Dx); Hypertension, essential; Elevated fasting glucose; Low serum vitamin B12; Encounter for gynecological examination without abnormal finding; Advance directive discussed with patient; Encounter for screening examination for other mental health and behavioral disorders; Screening for depression; Dyslipidemia Start: 01-10-2024 End: 01-10-2024 Patient encounter status Bhanu Meng MD Work Phone: [facility] Start: 01-08-2024 End: 01-08-2024 Patient encounter procedure Rafaela Wasihngton APRN.DIVER HELPER Work Phone: [facility] [place] Comment on above: Pre-op evaluation (P rimary Dx) Start: 01-08-2024 End: 01-08-2024 Preprocedural examination done Rafaela Washington APRN.[facility] Work Phone: [facility] Work Phone: Start: 01-04-2024 End: 01-04-2024 Admission to establishment Ravin JENSEN Work Phone: [facility] Pre Admission Comment on above: Pre-op testing (Prim darien Dx); Abnormal finding of blood chemistry, unspecified; Abnormal results of liver function studies Start: 01-04-2024 End: 01-04-2024 Patient encounter status Ravin JENSEN Work Phone: [facility] Start: 12-28-2023 End: 12-28-2023 Office outpatient new 45 minutes Rosalinda Barajas MD Work Phone: [facility] Orthopedics Comment on above: Left knee pain, unsp ecified chronicity (Primary Dx) Start: 12-28-2023 End: 12-28-2023 Subsequent hospital visit by physician Rosalinda Barajas MD Work Phone: [facility] Start: 12-05-2023 End: 12-05-2023 Patient encounter procedure Marilyn Hair PA-C Work Phone: [facility] [place] Comment on above: Hypertension, essent ial (Primary Dx); Bacterial sinusitis Start: 11-06-2023 End: 11-06-2023 Patient encounter procedure Bhanu Meng MD Work Phone: [facility] [place] Comment on above: Hypertension, essent ial (Primary Dx); Chronic pain of left knee Start: 10-31-2023 End: 10-31-2023 Patient encounter procedure Saurabh Wetzel MD Work Phone: OB/Gynecology Comment on above: MARY II (cervical int raepithelial neoplasia II) (Primary Dx) Start: 10-12-2023 End: 10-12-2023 Emergency department patient visit Vidal Sanchez MD Work Phone: [facility] Emergency Medicine Comment on above: Allergic rhinitis, u nspecified seasonality, unspecified trigger (Primary Dx) Start: 10-05-2023 End: 10-05-2023 Patient encounter procedure hBanu Meng MD Work Phone: [facility] [place] Comment on above: Arthritis of both kn ees (Primary Dx); Hypertension, essential Start: 09-05-2023 Telephone encounter Lidya Champion MD Work Phone: General Surgery Comment on above: Patient Update (Mamm ogram cancelled) Start: 09-05-2023 ambulatory BHANU MENG Facili ty:[facility] Start: 09-05-2023 End: 09-05-2023 Subsequent hospital visit by physician Screen/Diagnostic Mammo [facility] Work Phone: Mammography Comment on above: Arrived Start: 08-22-2023 Telephone encounter Saurabh soriano MD Work Phone: OB/Gynecology Comment on above: Results Start: 08-11-2023 End: 08-11-2023 Patient encounter procedure Saurabh Wetzel MD Work Phone: OB/Gynecology Comment on above: ASCUS with positive high risk HPV cervical (Primary Dx) Start: 08-08-2023 Orders Only Krystal Peña MD Work Phone: Mammography Comment on above: Abnormal finding on breast imaging (Primary Dx) Start: 07-25-2023 Telephone encounter Bhanu Meng MD Work Phone: [facility] [place] Comment on above: Results Start: 07-25-2023 End: 07-25-2023 Patient encounter procedure Bhanu Meng MD Work Phone: [facility] [place] Comment on above: Hypertension, essent ial (Primary Dx); Elevated fasting glucose; Arthritis of both knees; Paresthesia; Family history of thyroid disease; Medication management Start: 07-24-2023 Telephone encounter Lidya Champion MD Work Phone: General Surgery Comment on above: Orders Start: 07-21-2023 End: 07-21-2023 Patient encounter procedure Lidya Champion MD Work Phone: General Surgery Comment on above: Abnormal mammogram; Breast nodule Start: 07-20-2023 Telephone encounter Sandykaila Hoangmorales ruano BAG BUILDER.DIVER HELPER Work Phone: OB/Gynecology Comment on above: Results Start: 07-10-2023 End: 07-10-2023 Patient encounter procedure Sandy Hoangcalf BAG BUILDER.DIVER HELPER Work Phone: OB/Gynecology Comment on above: Encounter for gyneco logical examination (general) (routine) without abnormal findings (Primary Dx); Screening for malignant neoplasm of cervix; Encounter for screening for human papillomavirus (HPV); Encounter for screening for osteoporosis; Age-related osteoporosis without current pathological fracture Start: 07-10-2023 End: 07-10-2023 Patient encounter status Sandy Hoangcalf BAG BUILDER.DIVER HELPER Work Phone: [facility] Work Phone: Start: 06-29-2023 End: 06-29-2023 Patient encounter procedure Rafaela Washington BAG BUILDER.DIVER HELPER Work Phone: [facility] [place] Comment on above: Abnormal mammogram ( Primary Dx); Breast nodule Start: 06-26-2023 End: 06-26-2023 ambulatory [facility] Work Phone: Start: 06-26-2023 End: 06-26-2023 Patient encounter procedure [facility] Work Phone: Start: 06-22-2023 End: 06-22-2023 ambulatory BHANU MENG [facility] Start: 06-22-2023 End: 06-22-2023 Subsequent hospital visit by physician Farhan [id number] Mammo [facility] Comment on above: Encounter for screen ing mammogram for malignant neoplasm of breast Start: 05-24-2023 End: 05-24-2023 Subsequent hospital visit by physician Farhan 2e Cr Nonv1 [facility] Comment on above: Arrived Start: 05-24-2023 End: 05-24-2023 ambulatory CHRIS DURAN [facility] Start: 05-21-2023 End: 05-21-2023 Emergency department patient visit Chris Duran DO Work Phone: [facility] Emergency Medicine Comment on above: Gastroesophageal ref lux disease with esophagitis without hemorrhage (Primary Dx) Start: 05-09-2023 ambulatory Lily Padronhuseyin cortes [place] [facility] [place] Comment on above: Opened In Error Population Health Na vigation Outreach (ACO CARE GAPS) Start: 04-22-2023 End: 04-22-2023 Emergency department patient visit Chris Duran DO Work Phone: [facility] Emergency Medicine Comment on above: Acute pharyngitis, u nspecified etiology (Primary Dx) Start: 03-07-2023 ambulatory Lily Agustin Trina cortes [place] [facility] [place] Comment on above: Population Health Na vigation Outreach (ACO CARE GAPS) Start: 02-20-2023 End: 02-20-2023 Patient encounter procedure Marilyn Hair PA-C Work Phone: [facility] [place] Comment on above: Hypertension, essent ial (Primary Dx) Start: 02-02-2023 Telephone encounter Marilyn sawyer PA-C Work Phone: [facility] [place] Comment on above: Patient Update Start: 01-20-2023 End: 01-20-2023 Patient encounter procedure Marilyn Hair PA-C Work Phone: [facility] [place] Comment on above: Medicare annual well ness visit, subsequent (Primary Dx); Advance directive discussed with patient; Hypertension, essential; Hyperlipidemia, mixed; Elevated fasting glucose; Age-related osteoporosis without current pathological fracture; Family history of thyroid disease Start: 01-17-2023 End: 01-17-2023 ambulatory Bijan Carrillo Facility:[id number] Start: 12-21-2022 End: 12-21-2022 Patient encounter procedure Miesha Jefferson PA-C Work Phone: Orthopaedics Comment on above: Primary osteoarthrit is of left knee (Primary Dx); Chronic pain of left knee Start: 12-21-2022 End: 12-21-2022 Subsequent hospital visit by physician Myesha [facility] [place] Rodrgiuez Work Phone: Radiology Comment on above: Pain in both knees, unspecified chronicity [M25.561, M25.562] Start: 12-13-2022 Orders Only Miesha Yuliet krishnamurthy PA-C Work Phone: Orthopaedics Comment on above: Pain in both knees, unspecified chronicity (Primary Dx) Start: 12-09-2022 Telephone encounter Bhanu Meng MD Work Phone: [facility] [place] Comment on above: Lab Orders Start: 11-10-2022 End: 11-10-2022 Patient encounter procedure Rafaela Washington APRN.DIVER HELPER Work Phone: [facility] [place] Comment on above: Acute non-recurrent frontal sinusitis [J01.10 (ICD-10-CM)] (Primary Dx) Start: 2022 Telephone encounter Marilyn GUC Work Phone: [facility] [place] Comment on above: work excuse Start: 08-21-2022 End: 08-21-2022 Emergency department patient visit Ms. Daniela Dorantes [facility] Facility:[id number] Start: 08-17-2022 ambulatory Kay erickson [place] [facility] [place] Comment on above: Population Health Na vigation Outreach (/ACO Care Gaps) Start: 08-12-2022 End: 08-12-2022 Patient encounter procedure Marilyn Hair PA-C Work Phone: [facility] [place] Comment on above: Hypertension, essent ial (Primary Dx) Start: 07-19-2022 Telephone encounter Marilyn sawyer PA-C Work Phone: [facility] [place] Comment on above: Results Start: 07-18-2022 End: 07-18-2022 Patient encounter procedure Marilyn Hair PA-C Work Phone: [facility] [place] Comment on above: Hypertension, essent ial (Primary Dx); Elevated fasting glucose; Palpitations; Family history of thyroid disease; Age-related osteoporosis without current pathological fracture; Dyslipidemia Start: 07-04-2022 ambulatory Lily cortes [place] [facility] [place] Comment on above: Population Health Na vigation Outreach (ACO [place] PCSA) Start: 05-17-2022 ambulatory Paula Mcgrath RN Work Phone: [employer] Comment on above: cdm (enrollment) Start: 04-20-2022 ambulatory Lily cortes [place] [facility] [place] Comment on above: Population Health Na vigation Outreach (ACO [place] PCSA) Start: 04-19-2022 Telephone encounter Marilyn sawyer PA-C Work Phone: [facility] [place] Comment on above: Letter Start: 03-07-2022 End: 03-07-2022 Emergency department patient visit Lidya Corey Adiar [facility] Emergency 07 Start: 02-24-2022 Telephone encounter Bhanu Meng MD Work Phone: [facility] [place] Comment on above: Patient Question Start: 01-14-2022 Telephone encounter Bhanu Meng MD Work Phone: [facility] [place] Comment on above: Medication Request Start: 12-23-2021 End: 12-23-2021 Office outpatient visit 25 minutes Marilyn Hair PA-C Work Phone: [facility] [place] Comment on above: Hypertension, essent ial (Primary Dx); Elevated LFTs Start: 11-26-2021 End: 11-26-2021 Patient encounter procedure Marilyn Hair PA-C Work Phone: [facility] [place] Comment on above: Elevated LFTs (Prima ry Dx); Abnormal levels of other serum enzymes ; Renal cyst Start: 11-25-2021 End: 11-25-2021 Subsequent hospital visit by physician [facility] Work Phone: Radiology Comment on above: Elevated LFTs [R79.8 9] Start: 11-24-2021 Telephone encounter Marilyn sawyer PA-C Work Phone: [facility] [place] Comment on above: Results Start: 11-23-2021 End: 11-23-2021 Patient encounter procedure Marilyn Hair PA-C Work Phone: [facility] [place] Comment on above: Medicare annual well ness visit, subsequent (Primary Dx); Advance directive discussed with patient; Encounter for screening mammogram for malignant neoplasm of breast; Elevated blood pressure reading without diagnosis of hypertension; Elevated fasting glucose; Arthritis of both knees; Age-related osteoporosis without current pathological fracture Start: 10-23-2021 Telephone encounter Bhanu Meng MD Work Phone: [facility] [place] Comment on above: Results Start: 10-22-2021 Telephone encounter Bhanu Meng MD Work Phone: [facility] [place] Comment on above: Patient Question Start: 09-27-2021 End: 09-27-2021 Subsequent hospital visit by physician Myesha [facility] [place] Rodriguez Work Phone: Radiology Comment on above: Left knee pain, unsp ecified chronicity [M25.562] Start: 09-27-2021 End: 09-27-2021 Patient encounter procedure Miesha Jefferson PA-C Work Phone: Orthopaedics Comment on above: Primary osteoarthrit is of left knee (Primary Dx); Chronic pain of left knee Start: 09-22-2021 Orders Only Jamar Albert MD Work Phone: Orthopaedics Comment on above: Left knee pain, unsp ecified chronicity (Primary Dx) Start: 05-31-2021 Patient encounter procedure [facility]eng [facility] Work Phone: Start: 03-10-2021 Patient encounter procedure Bhanu Meng Work Phone[facility] Work Phone: Start: 03-10-2021 Patient encounter procedure Marilyn Hair [facility] Rehab Start: 03-10-2021 [email or web address], Provider : Karla Egan, Status: Pen, Time: 7:45 AM Bhanu Meng [facility] Work Phone: Start: 03-08-2021 Patient encounter procedure Bhanu Meng Work Phone: [facility] Work Phone: Start: 03-08-2021 End: 03-08-2021 Emergency department patient visit Chris Duran [facility] Emergency 12 Start: 03-03-2021 Patient encounter procedure Bhanu Meng Work Phone: [facility] Work Phone: Start: 02-24-2021 [email or web address], Provider : Kylah Do, Status: Pen, Time: 8:30 AM Bhanu Meng Work Phone: [facility] Work Phone: Start: 02-22-2021 Patient encounter procedure Bhanu Meng Work Phone: [facility] Work Phone: Start: 02-10-2021 Patient encounter procedure Bhanu Meng Work Phone: [facility] Work Phone: Start: 02-10-2021 PTFUADULT4, Provider : Karla Egan, Status: Pen, Time: 7:45 AM Bhanu Meng Work Phone: [facility] Work Phone: Start: 02-08-2021 Patient encounter procedure Bhanu Meng Work Phone: [facility] Work Phone: Start: 02-03-2021 Patient encounter procedure Bhanu Meng Work Phone: [facility] Work Phone: Start: 01-25-2021 Patient encounter procedure Bhanu Meng Work Phone: [facility] Work Phone: Start: 11-16-2020 End: 11-16-2020 Emergency department patient visit Jaqueline Ly [facility] Emergency 01 Start: 10-27-2020 End: 10-27-2020 Emergency department patient visit DENNYS BANEGAS [facility] Start: 10-27-2020 End: 10-27-2020 Emergency department patient visit Dennys Banegas MD Work Phone: [facility] Emergency Department Start: 10-19-2020 Patient encounter procedure Jamar Albert MD Work Phone: [facility] Work Phone: Start: 07-23-2020 End: 07-23-2020 Orders Only Cesia Montanaanzandrea Work Phone: [facility] Start: 04-14-2020 End: 04-14-2020 Subsequent hospital visit by physician Xr [facility] [place] Work Phone: Radiology Comment on above: Acute pain of left k nee [M25.562] Start: 11-18-2019 End: 11-18-2019 Patient encounter procedure [facility] Start: 06-07-2019 End: 06-11-2019 Patient encounter procedure FORTINO ELIZONDO [facility] Start: 11-09-2018 Patient encounter procedure BASILIO PITTS [facility] Start: 10-30-2018 End: 11-03-2018 Patient encounter procedure LUIGI BARRIGA [facility] Start: 10-30-2018 End: 10-30-2018 Office outpatient visit 15 minutes Luigi Barriga Work Phone: [facility] Comment on above: Seasonal allergic rh initis, unspecified trigger (Primary Dx) Start: 10-19-2018 End: 10-23-2018 Patient encounter procedure BASILIO PITTS [facility] Start: 10-19-2018 End: 10-19-2018 Office outpatient visit 25 minutes Basilio Rowebrynn Work Phone: [facility] Comment on above: Acute non-recurrent maxillary sinusitis (Primary Dx); Knee pain, unspecified chronicity, unspecified laterality; Chronic pain of both knees Start: 08-29-2018 Patient encounter procedure IWONA DUEÑAS [facility] Start: 06-14-2018 End: 06-14-2018 Patient encounter procedure FORTINO CHAKRABORTY [facility] Ambulatory Start: 06-14-2018 End: 06-14-2018 Patient encounter procedure Tyler No [facility] Comment on above: General medical exam (Primary Dx); Disorder of bone and cartilage; Breast screening; At low risk for fall; Breast cancer screening Start: 06-13-2018 End: 06-13-2018 Patient encounter procedure LUIGI BARRIGA [facility] Ambulatory Start: 06-13-2018 End: 06-13-2018 Office outpatient visit 25 minutes Luigi Barriga Work Phone: [facility] Comment on above: Acute non-recurrent frontal sinusitis (Primary Dx); Body aches; Seasonal allergic rhinitis, unspecified trigger Start: 04-12-2018 Patient encounter procedure Luigi Barriga [facility]:[place] Start: 04-12-2018 End: 04-12-2018 Patient encounter Luigi Barriga Work Phone: [facility] Start: 04-12-2018 End: 04-12-2018 Office outpatient visit 25 minutes Luigi Barriga Work Phone: [facility] Comment on above: Acute non-recurrent frontal sinusitis (Primary Dx); Left tennis elbow; Chest pain, unspecified type; Wellness examination Start: 01-25-2018 Patient encounter procedure Luigi Barriga [facility]:[place] Start: 01-25-2018 End: 01-25-2018 Patient encounter Luigisosa Barriga Work Phone: [facility] Start: 03-01-2017 End: 03-01-2017 Patient encounter procedure Fortino Chakraborty Work Phone: [facility] Start: 02-27-2017 End: 02-27-2017 Ambulatory Fortino Chakraborty Work Phone: [facility] Start: 02-27-2017 End: 06-13-2018 Patient encounter status Fortino Chakraborty MD Work Phone: [facility] Start: 02-27-2017 End: 02-27-2017 Periodic preventive med est patient 65yrs& older Fortino Chakraborty Work Phone: [facility] Comment on above: Wellness examination (Primary Dx);Risk for falls;Seasonal allergic rhinitis, unspecified allergic rhinitis trigger;Postmenopausal;Fibrocystic disease of both breasts;Encounter for screening mammogram for malignant neoplasm of breast Wellness examination (Primary Dx); Risk for falls; Seasonal allergic rhinitis, unspecified allergic rhinitis trigger; Postmenopausal; Fibrocystic disease of both breasts; Encounter for screening mammogram for malignant neoplasm of breast Start: 12-22-2016 Office/outpatient vi sit, est, level 3 Fortino Elizondo Ivet Work Phone: [facility] Start: 03-03-2016 Patient encounter status Namita Albert MD Work Phone: [facility] Work Phone: Procedures Date Procedure Procedure Detail Performing Clinician Start: 01-20-2025 Adult depression scr eening assessment Bhanu Meng MD Work Phone: Start: 01-20-2025 Lipid 1996 panel - S christine or Plasma Bhanu Meng MD Work Phone: Start: 01-08-2025 Digital breast tomos ynthesis unilateral Marilyn Hair PA-C Work Phone: Start: 07-12-2024 Lipid 1996 panel - S christine or Plasma Marilyn Hair PA-C Work Phone: Start: 05-15-2024 Influenza virus A an d B RNA [Identifier] in Unspecified specimen by MARGO with probe detection Ravin Osuna DO Work Phone: Start: 05-15-2024 SARS-CoV-2 (COVID-19 ) RNA [Presence] in Respiratory specimen by MARGO with probe detection Ravin Osuna DO Work Phone: Start: 01-17-2024 Radiologic examinati on knee 1/2 views Beth Quinn Work Phone: Start: 01-17-2024 Blood group typing, RH phenotyping Noreen Whalen PA-C Work Phone: Start: 01-10-2024 Adult depression scr eening assessment Bhanu Meng MD Work Phone: Start: 01-10-2024 Lipid 1996 panel - S christine or Plasma Bhanu Meng MD Work Phone: Start: 01-04-2024 CBC W/DIFF/PLT ([facility]) [facility] Provider Start: 01-04-2024 Comprehensive metabo lic 2000 panel - Serum or Plasma [facility] Provider Start: 01-04-2024 Hemoglobin A1c/Hemoglobin.total in Blood [facility] Provider Start: 01-04-2024 Ecg routine ecg w/le ast 12 lds w/i&r [facility] Work Phone: Start: 01-04-2024 Blood typing serologic abo [facility] Work Phone: Start: 01-04-2024 Complete blood count with white cell differential, automated [facility] Work Phone: Start: 01-04-2024 Comprehensive metabo lic panel [facility] Work Phone: Start: 01-04-2024 Cul prsmptv pthgnc o rganism scrn w/colony estimj [facility] Work Phone: Start: 01-04-2024 Urinalysis, reagent strip without microscopy [facility] Work Phone: Start: 07-21-2023 Lipid 1996 panel - S christine or Plasma Lidya Champion MD Work Phone: Start: 06-26-2023 Ultrasonography of breast Start: 06-22-2023 BI MAMMO BILATERAL S CREENING TOMOSYNTHESIS BHANU MENG Start: 06-22-2023 End: 06-22-2023 Screening digital breast tomosynthesis bi Non-Uh Radiology Contrast Provider Start: 05-24-2023 ECG 12-LEAD BHANU VALADEZ Start: 05-24-2023 Ecg routine ecg w/le ast 12 lds trcg only w/o i&r Chris W Duran DO Work Phone: Start: 05-21-2023 EXTRA TUBES BHANU VALADEZ Start: 05-21-2023 LIGHT BLUE TOP BHANU MENG [...] Bergeron Duran DO Work Phone: Start: 04-22-2023 Iadna streptococcus group a amplified probe tq Chris Bergeron Duran DO Work Phone: Start: 01-17-2023 Colonoscopy Marilyn GUC Work Phone: Start: 01-16-2023 Lipid 1996 panel - S christine or Plasma Marilyn GUC Work Phone: Start: 12-21-2022 Radiologic exam knee complete 4/more views Miesha GUC Work Phone: Start: 11-25-2021 Us abdominal real ti me w/image limited Marilyn JENSEN-C Work Phone: Start: 11-23-2021 Adult depression scr eening assessment Marilyn Hair PA-C Work Phone: Start: 09-27-2021 Radiologic exam knee complete 4/more views Jamar Albert MD Work Phone: Start: 11-16-2020 End: 11-16-2020 EKG impression Jaqueline Duffyjaylan Start: 10-19-2020 Adult depression scr eening assessment Jamar Albert MD Work Phone: Start: 04-14-2020 Radiologic exam knee complete 4/more views Curtis Villagran BAG BUILDER.DIVER HELPER, DNP Work Phone: Start: 01-15-2020 Mammography Chris Duran DO Work Phone: Start: 06-14-2018 Adult depression scr eening assessment Dennys Banegas MD Work Phone: Start: 06-13-2018 Influenzavirus antib erik assay Luigi Fischer [employer] Work Phone: Start: 04-12-2018 End: 04-12-2018 Complete blood count with white cell differential, manual Luigi Fischer [employer] Work Phone: Start: 04-12-2018 End: 04-12-2018 Comprehensive metabolic 2000 panel - Serum or Plasma Luigi Fischer [employer] Work Phone: Start: 04-12-2018 End: 04-12-2018 Erythrocyte sedimentation rate by Westergren method Luigi Fischer [employer] Work Phone: Start: 04-12-2018 End: 04-12-2018 Lipid 1996 panel - Serum or Plasma Luigi Fischer [employer] Work Phone: Start: 04-12-2018 End: 04-12-2018 MHS - CARDIAC TROPONIN-I Luigi Fischer [facility] Work Phone: Start: 04-12-2018 End: 04-12-2018 Thyrotropin [Units/volume] in Serum or Plasma by Detection limit <= 0.005 mIU/L Luigi Fischer [employer] Work Phone: Start: 04-12-2018 End: 04-12-2018 12 lead ECG Luigi Fischer [employer] Work Phone: Start: 09-01-2017 Colonoscopy Luigi [place] Start: 02-27-2017 PATHOLOGY Provider N ot In System Start: 02-24-2017 PATHOLOGY Provider N ot In System Plan of Treatment Date Care Activity Detail Author Start: 01-17-2033 Screening for malign ant neoplasm of [facility] Start: 01-20-2030 Lipid panel Lipid Screening [facility] Start: 07-12-2029 Lipid panel Lipid Screening [facility] Start: 01-09-2029 Lipid panel Lipid Screening [facility] Start: 07-21-2028 Lipid panel Lipid Screening [facility] Start: 01-21-2028 Diabetes Screening Diabetes Screenin g [facility] Start: 01-18-2028 Colonoscopy Colonoscopy [facility] Start: 01-18-2028 Colorectal Cancer Screening Colorectal Cancer Screening [facility] Start: 01-18-2028 Screening for malign ant neoplasm of colon Colonoscopy [facility] Start: 01-17-2028 Lipid 1996 panel - Serum or Plasma Lipid Screening [facility] Start: 01-17-2028 Lipid panel Lipid Screening [facility] Start: 01-17-2028 LIPID SCREEN LIPID SCREEN [facility] Start: 09-02-2027 Screening colonoscopy COL[facility]OSCOPY [facility] Start: 07-18-2027 LIPID SCREEN LIPID SCREEN [facility] Start: 07-12-2027 Diabetes Screening Diabetes Screenin g [facility] Start: 01-03-2027 Diabetes Screening Diabetes Screenin g [facility] Start: 11-23-2026 LIPID SCREEN LIPID SCREEN [facility] Start: 07-21-2026 Diabetes Screening Diabetes Screenin g [facility] Start: 05-21-2026 Diabetes Screening Diabetes Screenin g [facility] Start: 01-20-2026 Annual PCP Team [facility] [place] Disease Visit Annual PCP Team Chronic Disease Visit [facility] Start: 01-20-2026 Anxiety Screening Anxiety Screening [facility] Start: 01-20-2026 Depression Screening Depression Scre ening [facility] Start: 01-20-2026 Medicare Annual Wellness Visit Medicare Annual Wellness Visit [facility] Start: 01-20-2026 Urine microalbumin profile DTaP,Tdap,Td Vaccine (2 - Td or Tdap) [facility] Comment on above: Postponed from 12/01 (Insurance Coverage) Start: 01-16-2026 DIABETES SCREEN DIABETES SCREEN [facility] Start: 01-16-2026 Diabetes Screening Diabetes Screenin g [facility] Start: 12-13-2025 Screening for malign ant neoplasm of breast [facility] Start: 12-13-2025 Screening for malign ant neoplasm of cervix Cervical Cancer Screening [facility] Start: 10-19-2025 LIPID SCREEN LIPID SCREEN [facility] Start: 08-29-2025 Annual PCP Team [place] [place] Disease Visit Annual PCP Team Chronic Disease Visit [facility] Start: 08-29-2025 BP Controlled (<130/80) BP Controlle d (<130/80) [facility] Start: 2025 Respiratory Syncytia l Virus Immunization: Risk, 60-74 Risk, or 75+ (1 - 1-dose 75+ series) Respiratory Syncytial Virus Immunization: Risk, 60-74 Risk, or 75+ (1 - 1-dose 75+ series) [facility] Start: 2025 RSV High Risk: (Elde rly (60+) or Population) (1 - 1-dose 75+ series) RSV High Risk: (Elderly (60+) or Population) (1 - 1-dose 75+ series) [facility] Start: 2025 RSV VACCINE (1 - 1-d ose 75+ series) RSV VACCINE (1 - 1-dose 75+ series) [employer] Start: 07-22-2025 End: 07-22-2025 Patient encounter procedure 07/22/2025 8:00 AM EST Office Visit [facility] [address] [place] [address] Marilyn Hair PA-C [address] [place] [address] 6 mo f/u [facility] [place] Comment on above: 6 mo f/u Start: 07-18-2025 DIABETES SCREEN DIABETES SCREEN [facility] Start: 07-17-2025 Annual PCP Team [facility] [place] Disease Visit Annual PCP Team Chronic Disease Visit [facility] Start: 07-11-2025 End: 10-10-2025 Hemoglobin A1c in Blood HEMOGLOBIN A1C Lab Routine Elevated fasting glucose Expected: 07/11/2025, Expires: 10/10/2025 [facility] Comment on above: Expected: 07/11/2025 , Expires: 10/10/2025 Start: 07-11-2025 End: 10-10-2025 LIPID PANEL, NONFASTING LIPID PANEL, NONFASTING Lab Routine Hypertension, essential Dyslipidemia Expected: 07/11/2025, Expires: 10/10/2025 [facility] Comment on above: Expected: 07/11/2025 , Expires: 10/10/2025 Start: 01-27-2025 Influenza vaccination [facility] [employer] Start: 01-20-2025 End: 04-21-2025 Cobalamin (Vitamin B12) [Mass/volume] in Serum or Plasma [facility] Work Phone: Comment on above: Expected: 01/20/2025 , Expires: 04/21/2025 Start: 01-20-2025 End: 04-21-2025 Comprehensive metabolic 2000 panel - Serum or Plasma [facility] Comment on above: Expected: 01/20/2025 , Expires: 04/21/2025 Start: 01-20-2025 End: 04-21-2025 Hemoglobin A1c in Blood [facility] Comment on above: Expected: 01/20/2025 , Expires: 04/21/2025 Start: 01-20-2025 End: 04-21-2025 LIPID PANEL, NONFASTING [facility] Comment on above: Expected: 01/20/2025 , Expires: 04/21/2025 Start: 01-20-2025 End: 04-21-2025 Urinalysis complete panel - Urine [facility] Comment on above: Expected: 01/20/2025 , Expires: 04/21/2025 Start: 01-20-2025 End: 01-20-2025 Patient encounter procedure 01/20/2025 10:20 AM EDT Office Visit Family [facility] [address] [place] [address] Bhanu Meng MD [address] [place] [id number] medicare wellness/6 months follow up (R/S from provider out on 01/14) [facility] Comment on above: medicare wellness/6 months follow up (R/S from provider out on 01/14) Start: 01-14-2025 End: 01-14-2025 Patient encounter procedure [facility] Comment on above: medicare 6 months Start: 01-09-2025 Annual PCP Team [facility] [place] Disease Visit Annual PCP Team Chronic Disease Visit [facility] Start: 01-09-2025 Anxiety Screening Anxiety Screening [facility] Start: 01-09-2025 Depression Screening Depression Scre ening [facility] Start: 01-09-2025 Medicare Annual Wellness Visit Medicare Annual Wellness Visit [facility] Start: 01-08-2025 End: 01-08-2025 Patient encounter procedure [facility] Comment on above: [facility] LEFT CALLBACK Start: 01-07-2025 Annual PCP Team [place] Disease Visit Annual PCP Team Chronic Disease Visit [facility] Start: 01-07-2025 BP Controlled (<130/80) BP Controlle d (<130/80) [facility] Start: 12-04-2024 Annual PCP Team [place] Disease Visit Annual PCP Team Chronic Disease Visit [facility] Start: 12-01-2024 DTaP/Tdap/Td Vaccine s (2 - Td or Tdap) DTaP/Tdap/Td Vaccines (2 - Td or Tdap) [facility] Start: 12-01-2024 Tetanus vaccination [facility] Start: 12-01-2024 Urine microalbumin profile [facility] Start: 11-25-2024 Influenza vaccination Influenza Vacc ine (#1) [facility] Comment on above: Postponed from 01/27 (Declined at this time) Start: 11-23-2024 DIABETES SCREEN DIABETES SCREEN [facility] Start: 11-05-2024 Annual PCP Team [place] Disease Visit Annual PCP Team Chronic Disease Visit [facility] Start: 10-04-2024 Annual PCP Team [facility] [place] Disease Visit Annual PCP Team Chronic Disease Visit [facility] Start: 08-29-2024 End: 08-29-2024 Patient encounter procedure 08/29/2024 9:00 AM EDT Office Visit Family [facility] [address] [place] [phone] Marilyn Hair PA-C [address] [place], [place] [phone] follow up 6 weeks Family [facility] Comment on above: follow up 6 weeks Start: 08-14-2024 End: 11-13-2024 Cobalamin (Vitamin B12) [Mass/volume] in Serum or Plasma VITAMIN B12 Lab Routine Gastroesophageal reflux disease without esophagitis Medication management Expected: 08/14/2024, Expires: 11/13/2024 [facility] Comment on above: Expected: 08/14/2024 , Expires: 11/13/2024 Start: 08-14-2024 End: 11-13-2024 Magnesium [Mass/volume] in Serum or Plasma MAGNESIUM Lab Routine Gastroesophageal reflux disease without esophagitis Medication management Expected: 08/14/2024, Expires: 11/13/2024 [facility] Comment on above: Expected: 08/14/2024 , Expires: 11/13/2024 Start: 07-25-2024 Annual PCP Team [place] Disease Visit Annual PCP Team Chronic Disease Visit [facility] Start: 07-21-2024 Hemoglobin A1c measurement Diabetes: Hemoglobin A1C [facility] Start: 07-15-2024 End: 07-15-2024 Patient encounter procedure 07/15/2024 9:00 AM EST Office Visit [facility] [place] [address] [place] [phone] Marilyn Hair PA-C [address] [place] [address] 6 month follow up [facility] [place] Comment on above: 6 month follow up Start: 07-12-2024 End: 10-11-2024 Cobalamin (Vitamin B12) [Mass/volume] in Serum or Plasma [facility] Comment on above: Expected: 07/12/2024 , Expires: 10/11/2024 Start: 07-12-2024 End: 10-11-2024 Hemoglobin A1c in Blood [facility] Work Phone: Comment on above: Expected: 07/12/2024 , Expires: 10/11/2024 Start: 07-12-2024 End: 10-11-2024 Thyrotropin [Units/volume] in Serum or Plasma [facility] Comment on above: Expected: 07/12/2024 , Expires: 10/11/2024 Start: 07-12-2024 End: 10-11-2024 Urinalysis complete panel - Urine URINALYSIS, WITH MICROSCOPIC Lab Routine Hypertension, essential Expected: 07/12/2024, Expires: 10/11/2024 [facility] Comment on above: Expected: 07/12/2024 , Expires: 10/11/2024 Start: 07-10-2024 BP Controlled (<130/80) BP Controlle d (<130/80) [facility] Start: 07-10-2024 Screening for malign ant neoplasm of cervix Cervical Cancer Screening [facility] Start: 06-29-2024 Annual PCP Team [place] Disease Visit Annual PCP Team Chronic Disease Visit [facility] Start: 06-28-2024 End: 09-27-2024 LIPID PANEL, NONFASTING LIPID PANEL, NONFASTING Lab Routine Dyslipidemia Expected: 06/28/2024, Expires: 09/27/2024 [facility] Comment on above: Expected: 06/28/2024 , Expires: 09/27/2024 Start: 06-22-2024 Screening for malign ant neoplasm of breast [facility] Start: 05-29-2024 Advance Directive Discussion Advance Directive Discussion [facility] Start: 02-21-2024 Annual PCP Team [place] Disease Visit Annual PCP Team Chronic Disease Visit [facility] Start: 02-08-2024 End: 02-08-2024 Patient encounter procedure 02/08/2024 2:20 PM EDT Office Visit [facility] [address] [place] [address] Vidal Jewell APRN-MARK [address] [place] [address] [facility] Start: 01-28-2024 COVID-19 VACCINE ( season) COVID-19 VACCINE ( season) [facility] Start: 01-28-2024 COVID-19 Vaccine ( season) COVID-19 Vaccine ( season) [facility] Start: 01-28-2024 Influenza vaccination C [facility] Start: 01-23-2024 End: 01-23-2024 Patient encounter procedure 01/23/2024 8:00 AM EDT Office Visit [facility] [place] [address] [place] [phone] Marilyn Hair PA-C [address] [place], [place] [phone] Medicare wellness [facility] [place] Comment on above: Medicare wellness Start: 01-21-2024 ANNUAL PCP TEAM MANAGER LOCAL [place] DISEASE VISIT ANNUAL PCP TEAM CHRONIC DISEASE VISIT [facility] Start: 01-21-2024 End: 08-21-2024 MG Breast - right Diagnostic for implant [facility] RIGHT Radiology Routine Abnormal mammogram Breast nodule Expected: 01/21/2024, Expires: 08/21/2024 [facility] Work Phone: Comment on above: Expected: 01/21/2024 , Expires: 08/21/2024 Start: 01-21-2024 End: 08-21-2024 US Breast - right limited US BREAST LTD RIGHT Radiology Routine Abnormal mammogram Breast nodule Expected: 01/21/2024, Expires: 08/21/2024 [facility] Work Phone: Comment on above: Expected: 01/21/2024 , Expires: 08/21/2024 Start: 01-18-2024 Screening for malign ant neoplasm of colon COLORECTAL CANCER SCREENING DISCUSSION [facility] Start: 01-17-2024 Subsequent hospital visit by physician 01/17/2024 Hospital Encounter [facility] [address] [place] [address] Rosalinda Barajas MD [address] [place] [id number] Osteoarthritis of left knee, unspecified osteoarthritis type [facility] Comment on above: Osteoarthritis of le ft knee, unspecified osteoarthritis type Start: 01-17-2024 End: 01-17-2024 Admission to same day surgery center 01/17/2024 10:50 AM EDT - 01/17/2024 12:[address] [facility] [address] [place] [address] Rosalinda Barajas MD [address] [place] [id number] [facility] Comment on above: ARTHROPLASTY KNEE TO JAISON Start: 01-17-2024 End: 01-17-2024 Arthrp kne condyle&platu medial&lat compartments ARTHROPLASTY KNEE TOTAL Osteoarthritis of left knee, unspecified osteoarthritis type 01/17/2024 10:50 AM EDT [facility] Start: 01-17-2024 End: 01-17-2024 Admission to same day surgery center 01/17/2024 6:45 AM EDT - 01/17/2024 8:[address] [facility] [address] [place] [address] Rosalinda Barajas MD [address] [place] [address] [facility] Comment on above: ARTHROPLASTY KNEE TO JAISON Start: 01-17-2024 End: 01-17-2024 Arthrp kne condyle&platu medial&lat compartments [facility] Start: 01-12-2024 End: 04-12-2024 CBC W Auto Differential panel - Blood CBC + DIFF Lab Routine Medication management Expected: 01/12/2024, Expires: 04/12/2024 [facility] Work Phone: Comment on above: Expected: 01/12/2024 , Expires: 04/12/2024 Start: 01-12-2024 End: 04-12-2024 Comprehensive metabolic 2000 panel - Serum or Plasma COMP METABOLIC PANEL Lab Routine Hypertension, essential Expected: 01/12/2024, Expires: 04/12/2024 [facility] Work Phone: Comment on above: Expected: 01/12/2024 , Expires: 04/12/2024 Start: 01-12-2024 End: 04-12-2024 Hemoglobin A1c in Blood HGB A1C Lab Routine Elevated fasting glucose Expected: 01/12/2024, Expires: 04/12/2024 [facility] Work Phone: Comment on above: Expected: 01/12/2024 , Expires: 04/12/2024 Start: 01-12-2024 End: 04-12-2024 LIPID PANEL, NONFASTING LIPID PANEL, NONFASTING Lab Routine Hypertension, essential Expected: 01/12/2024, Expires: 04/12/2024 [facility] Work Phone: Comment on above: Expected: 01/12/2024 , Expires: 04/12/2024 Start: 01-12-2024 End: 04-12-2024 Thyrotropin [Units/volume] in Serum or Plasma TSH BLD Lab Routine Family history of thyroid disease Expected: 01/12/2024, Expires: 04/12/2024 [facility] Work Phone: Comment on above: Expected: 01/12/2024 , Expires: 04/12/2024 Start: 01-12-2024 End: 04-12-2024 Urinalysis complete panel - Urine URINALYSIS, WITH MICROSCOPIC Lab Routine Hypertension, essential Expected: 01/12/2024, Expires: 04/12/2024 [facility] Work Phone: Comment on above: Expected: 01/12/2024 , Expires: 04/12/2024 Start: 01-10-2024 End: 04-10-2024 Cobalamin (Vitamin B12) [Mass/volume] in Serum or Plasma [facility] Work Phone: Comment on above: Expected: 01/10/2024 , Expires: 04/10/2024 Start: 01-10-2024 End: 01-10-2024 Patient encounter procedure 01/10/2024 8:40 AM EDT Office Visit [facility] [place] [address] [place] [phone] Bhanu Meng MD [address] [place] [address] Medicare wellness [facility] [place] Comment on above: Medicare wellness Start: 01-04-2024 End: 01-04-2024 Admission to [facility] Pre Admission Comment on above: Pre-op testing (Prim darien Dx) Start: 12-21-2023 End: 12-21-2023 Patient encounter procedure 12/21/2023 9:40 AM EDT Office Visit OB/Gynecology [address] [place] [phone] Saurabh Wetzel MD [address] [place] [address] f/u from [facility] OB/Gynecology Comment on above: f/u from [facility] Start: 12-05-2023 End: 12-05-2023 Patient encounter procedure 12/05/2023 8:00 AM EDT Office Visit [facility] [place] [address] [facility], [place] [phone] Marilyn Hair PA-C [address] [place], [place] [address] 4 week follow up on HTN [facility] [place] Comment on above: 4 week follow up on HTN Start: 11-26-2023 Influenza vaccination Influenza Vacc ine (#1) [facility] Comment on above: Postponed from 01/27 (Declined at this time) Start: 11-11-2023 ANNUAL PCP TEAM MANAGER LOCAL [place] DISEASE VISIT ANNUAL PCP TEAM CHRONIC DISEASE VISIT [facility] Start: 11-11-2023 BP CONTROLLED (<130/80) BP CONTROLLE D (<130/80) [facility] Start: 11-06-2023 End: 11-06-2023 Patient encounter procedure 11/06/2023 9:40 AM EDT Office Visit [facility] [place] [address] [facility], [place] [phone] Bhanu Meng MD [address] [place], [place] [phone] 1 month follow up. Left knee pain. Trial of Celecoxib given [facility] [place] Comment on above: 1 month follow up. L eft knee pain. Trial of Celecoxib given Start: 10-20-2023 DIABETES SCREEN DIABETES SCREEN [facility] Start: 10-12-2023 End: 10-12-2023 Patient encounter procedure 10/12/2023 9:20 AM EDT Office Visit OB/Gynecology [address] [place], [place] [phone] Saurabh Wetzel MD [address] [place], [place] [phone] LEEP - if pt reschedules again please leave at 40 minutes and include procedure room OB/Gynecology Comment on above: LEEP - if pt resched ules again please leave at 40 minutes and include procedure room Start: 08-24-2023 ANNUAL PCP TEAM MANAGER LOCAL [place] DISEASE VISIT ANNUAL PCP TEAM CHRONIC DISEASE VISIT [facility] Start: 08-24-2023 BP CONTROLLED (<130/80) BP CONTROLLE D (<130/80) [facility] Start: 08-13-2023 ANNUAL PCP TEAM MANAGER LOCAL [place] DISEASE VISIT ANNUAL PCP TEAM CHRONIC DISEASE VISIT [facility] Start: 07-23-2023 End: 09-22-2023 25-hydroxyvitamin D3 [Mass/volume] in Serum or Plasma VITAMIN D 25 HYDROXY Lab Routine Age-related osteoporosis without current pathological fracture Expected: 07/23/2023, Expires: 09/22/2023 [facility] Work Phone: Comment on above: Expected: 07/23/2023 , Expires: 09/22/2023 Start: 07-23-2023 End: 09-22-2023 Comprehensive metabolic 2000 panel - Serum or Plasma COMP METABOLIC PANEL Lab Routine Elevated fasting glucose Hypertension, essential Expected: 07/23/2023, Expires: 09/22/2023 [facility] Work Phone: Comment on above: Expected: 07/23/2023 , Expires: 09/22/2023 Start: 07-23-2023 End: 09-22-2023 Hemoglobin A1c in Blood HGB A1C Lab Routine Elevated fasting glucose Expected: 07/23/2023, Expires: 09/22/2023 [facility] Work Phone: Comment on above: Expected: 07/23/2023 , Expires: 09/22/2023 Start: 07-23-2023 End: 09-22-2023 LIPID PANEL, NONFASTING LIPID PANEL, NONFASTING Lab Routine Hyperlipidemia, mixed Expected: 07/23/2023, Expires: 09/22/2023 [facility] Work Phone: Comment on above: Expected: 07/23/2023 , Expires: 09/22/2023 Start: 07-23-2023 End: 09-22-2023 Thyrotropin [Units/volume] in Serum or Plasma TSH BLD Lab Routine Family history of thyroid disease Expected: 07/23/2023, Expires: 09/22/2023 [facility] Work Phone: Comment on above: Expected: 07/23/2023 , Expires: 09/22/2023 Start: 07-18-2023 ANNUAL PCP TEAM MANAGER LOCAL [place] DISEASE VISIT ANNUAL PCP TEAM CHRONIC DISEASE VISIT [facility] Start: 07-18-2023 COVID-19 VACCINE (#1) COVID-19 VACCI NE (#1) [facility] Comment on above: Postponed from 02/25 (Declined at this time) Start: 07-18-2023 Pneumococcal Vaccine : 65+ (1 - PCV) Pneumococcal Vaccine: 65+ (1 - PCV) [facility] Comment on above: Postponed from 08/25 (Declined at this time) Start: 07-18-2023 Pneumococcal Vaccine : 65+ (1 of 1 - PCV) Pneumococcal Vaccine: 65+ (1 of 1 - PCV) [facility] Comment on above: Postponed from 08/25 (Declined at this time) Start: 07-18-2023 PNEUMOCOCCAL: 65+ (1 - PCV) PNEUMOCOCCAL: 65+ (1 - PCV) [facility] Comment on above: Postponed from 08/25 (Declined at this time) Start: 07-18-2023 SHINGRIX VACCINE (1 of 2) SHINGRIX VACCINE (1 of 2) [facility] Comment on above: Postponed from 08/25 (Declined at this time) Start: 05-29-2023 Advance Directive Discussion Advance Directive Discussion [facility] Start: 05-29-2023 Behavioral Health Screening Behavioral Health Screening [facility] Start: 05-29-2023 Depression Assessment Depression Ass essment [facility] Start: 04-12-2023 Fasting lipid profile LIPID PANEL O [facility] Start: 04-12-2023 Lipid panel Lipid Panel [facility] Start: 01-27-2023 COVID-19 Vaccine ( season) COVID-19 Vaccine ( season) [facility] Start: 01-27-2023 Influenza vaccination C [facility] Start: 12-23-2022 ANNUAL PCP TEAM MANAGER LOCAL [place] DISEASE VISIT ANNUAL PCP TEAM CHRONIC DISEASE VISIT [facility] Start: 12-21-2022 Screening for osteoporosis [facility] Start: 12-09-2022 End: 02-08-2023 Comprehensive metabolic 2000 panel - Serum or Plasma COMP METABOLIC PANEL Lab Routine Hypertension, essential Expected: 12/09/2022, Expires: 02/08/2023 [facility] Work Phone: Comment on above: Expected: 12/09/2022 , Expires: 02/08/2023 Start: 12-09-2022 End: 02-08-2023 Hemoglobin A1c in Blood HGB A1C Lab Routine Elevated fasting glucose Expected: 12/09/2022, Expires: 02/08/2023 [facility] Work Phone: Comment on above: Expected: 12/09/2022 , Expires: 02/08/2023 Start: 12-09-2022 End: 02-08-2023 LIPID PANEL, NONFASTING LIPID PANEL, NONFASTING Lab Routine Hypertension, essential Expected: 12/09/2022, Expires: 02/08/2023 [facility] Work Phone: Comment on above: Expected: 12/09/2022 , Expires: 02/08/2023 Start: 12-09-2022 End: 02-08-2023 Urinalysis complete panel - Urine URINALYSIS, WITH MICROSCOPIC Lab Routine Hypertension, essential Expected: 12/09/2022, Expires: 02/08/2023 [facility] Work Phone: Comment on above: Expected: 12/09/2022 , Expires: 02/08/2023 Start: 11-25-2022 Influenza vaccination INFLUENZA (#1) [facility] Comment on above: Postponed from 01/27 (Declined at this time) Start: 11-23-2022 Adult depression screening assessment DEPRESSION SCREENING [facility] Start: 09-01-2022 Colonoscopy COLONOSCOPY [facility] Start: 09-01-2022 COLORECTAL CANCER SCREENING COLORECTAL CANCER SCREENING [facility] Start: 09-01-2022 Protein mass conc COLONOSCOPY [facility] Start: 09-01-2022 Screening for malign ant neoplasm of colon [facility] Start: 07-18-2022 End: 09-17-2022 Comprehensive metabolic 2000 panel - Serum or Plasma [facility] Work Phone: Comment on above: Expected: 07/18/2022 , Expires: 09/17/2022 Start: 07-18-2022 End: 09-17-2022 Hemoglobin A1c in Blood [facility] Work Phone: Comment on above: Expected: 07/18/2022 , Expires: 09/17/2022 Start: 07-18-2022 End: 09-17-2022 LIPID PANEL, NONFASTING [facility] Work Phone: Comment on above: Expected: 07/18/2022 , Expires: 09/17/2022 Start: 07-18-2022 End: 09-17-2022 Thyrotropin [Units/volume] in Serum or Plasma [facility] Work Phone: Comment on above: Expected: 07/18/2022 , Expires: 09/17/2022 Start: 05-29-2022 ADVANCE DIRECTIVE DISCUSSION ADVANCE DIRECTIVE DISCUSSION [facility] Start: 05-29-2022 DEPRESSION ASSESSMENT DEPRESSION ASS ESSMENT [facility] Start: 04-19-2022 End: 06-19-2022 Comprehensive metabolic 1999 panel - Serum or Plasma COMP METABOLIC PANEL Lab Routine Elevated LFTs Expected: 04/19/2022, Expires: 06/19/2022 [facility] Work Phone: Comment on above: Expected: 04/19/2022 , Expires: 06/19/2022 Start: 01-27-2022 Influenza vaccination [facility] Start: 12-27-2021 End: 02-26-2022 Gamma glutamyl transferase [Enzymatic activity/volume] in Serum or Plasma GGT BLD Lab Routine Elevated LFTs Abnormal levels of other serum enzymes Expected: 12/27/2021, Expires: 02/26/2022 [facility] Work Phone: Comment on above: Expected: 12/27/2021 , Expires: 02/26/2022 Start: 12-27-2021 End: 02-26-2022 Hepatic function 1999 panel - Serum or Plasma HEPATIC FUNCTION PNL Lab Routine Elevated LFTs Expected: 12/27/2021, Expires: 02/26/2022 [facility] Work Phone: Comment on above: Expected: 12/27/2021 , Expires: 02/26/2022 Start: 12-23-2021 End: 02-22-2022 Comprehensive metabolic 1999 panel - Serum or Plasma COMP METABOLIC PANEL Lab Routine Hypertension, essential Elevated LFTs Expected: 12/23/2021, Expires: 02/22/2022 [facility] Work Phone: Comment on above: Expected: 12/23/2021 , Expires: 02/22/2022 Start: 12-21-2021 Screening for osteoporosis DEXA SCAN DISCUSSION [facility] Start: 11-24-2021 End: 01-24-2022 Acute hepatitis 2000 panel - Serum HEP ACUTE PANEL BL Lab Routine Elevated LFTs Expected: 11/24/2021, Expires: 01/24/2022 [facility] Work Phone: Comment on above: Expected: 11/24/2021 , Expires: 01/24/2022 Start: 11-24-2021 End: 01-24-2022 Hepatic function 2000 panel - Serum or Plasma HEPATIC FUNCTION PNL Lab Routine Elevated LFTs Expected: 11/24/2021, Expires: 01/24/2022 [facility] Work Phone: Comment on above: Expected: 11/24/2021 , Expires: 01/24/2022 Start: 11-23-2021 End: 01-23-2022 Urinalysis complete panel - Urine URINALYSIS, WITH MICROSCOPIC Lab Routine Elevated blood pressure reading without diagnosis of hypertension Expected: 11/23/2021, Expires: 01/23/2022 [facility] Work Phone: Comment on above: Expected: 11/23/2021 , Expires: 01/23/2022 Start: 10-19-2021 Adult depression screening assessment DEPRESSION SCREENING [facility] Start: 05-29-2021 ADVANCE DIRECTIVE DISCUSSION ADVANCE DIRECTIVE DISCUSSION [facility] Start: 05-29-2021 DEPRESSION ASSESSMENT DEPRESSION ASS ESSMENT [facility] Start: 03-22-2021 Patient encounter procedure [facility] Start: 03-22-2021 FORREST, Provider : Ashley Tinajero, Status: Pen, Time: 8:30 AM FORREST, Provider: Ashley Tinajero, Status: Pen, Time: 8:30 [facility]: Start: 03-17-2021 Patient encounter procedure [facility] Re[facility] Start: 03-17-2021 PTFUADULT4, Provider : Karla Egan, Status: Pen, Time: 7:45 AM PTFUADULT4, Provider: Karla Egan, Status: Pen, Time: 7:45 AM [facility] Work Phone: Start: 03-15-2021 Patient encounter procedure [facility] Re[facility] Start: 03-15-2021 PTFUADULT4, Provider : Karla Egan, Status: Pen, Time: 7:45 AM PTFUADULT4, Provider: Karla Egan, Status: Pen, Time: 7:45 AM [facility] Work Phone: Start: 03-10-2021 Patient encounter procedure Outpatient [facility] Rehab [address] [place] [address] Start: 10-Mar-2021 7:45 Marilyn Hair N Intent [facility] Re[facility] Start: 03-10-2021 [email or web address], Provider : Karla Egan, Status: Pen, Time: 7:45 AM PTFUADULT4, Provider: Karla Egan, Status: Pen, Time: 7:45 AM [facility] Work Phone: Start: 03-08-2021 PTFUADULT4, Provider : Karla Egan, Status: Pen, Time: 7:45 AM PTFUADULT4, Provider: Karla Egan, Status: Pen, Time: 7:45 AM [facility] Work Phone: Start: 03-03-2021 PTFUADULT4, Provider : Blake Montejo, Status: Pen, Time: 7:00 AM PTFUADULT4, Provider: Blake Montejo, Status: Pen, Time: 7:00 AM [facility] Work Phone: Start: 03-01-2021 PTFUADULT4, Provider : Blake Montejo, Status: Pen, Time: 7:45 AM PTFUADULT4, Provider: Blake Montejo, Status: Pen, Time: 7:45 AM [facility]: Start: 02-24-2021 PTFUADULT4, Provider : Meera Mahoney, Status: Pen, Time: 8:30 AM PTFUADULT4, Provider: Meera Mahoney, Status: Pen, Time: 8:30 AM [facility]: Start: 02-22-2021 PTRECHECKA, Provider : Ashley Tinajero, Status: Pen, Time: 8:30 AM PTRECHECKA, Provider: Ashley Tinajero, Status: Pen, Time: 8:30 AM [facility] Work Phone: Start: 02-17-2021 PTFUADULT4, Provider : Kalpesh Hickman, Status: Pen, Time: 7:45 AM PTFUADULT4, Provider: Kalpesh Hickman, Status: Pen, Time: 7:45 AM [facility] Work Phone: Start: 02-17-2021 PTFUADULT4, Provider : Kalpesh Hickman, Status: Pen, Time: 7:00 AM PTFUADULT4, Provider: Kalpesh Hickman, Status: Pen, Time: 7:00 AM [facility] Work [facility]: Start: 02-15-2021 PTFUADULT4, Provider : Karla Egan, Status: Pen, Time: 7:45 AM PTFUADULT4, Provider: Karla Egan, Status: Pen, Time: 7:45 AM [facility] Work Phone: Start: 02-10-2021 PTFUADULT4, Provider : Karla Egan, Status: Pen, Time: 7:45 AM PTFUADULT4, Provider: Karla Egan, Status: Pen, Time: 7:45 AM [facility] Work Phone: Start: 02-08-2021 PTFUADULT4, Provider : Karla Egan, Status: Pen, Time: 7:45 AM PTFUADULT4, Provider: Karla Egan, Status: Pen, Time: 7:45 AM [facility] Work Phone: Start: 02-05-2021 PTFUADULT4, Provider : Nitza Gregg, Status: Pen, Time: 12:30 PM PTFUADULT4, Provider: Nitza Gregg, Status: Pen, Time: 12:30 PM [facility] Work Phone: Start: 02-03-2021 PTFUADULT4, Provider : Feliciano Snyder, Status: Pen, Time: 7:45 AM PTFUADULT4, Provider: Feliciano Snyder, Status: Pen, Time: 7:45 AM [facility] Work Phone: Start: 01-27-2021 Influenza vaccination Sequenti al Influenza Vaccine (Season Ended) [facility] Start: 01-14-2021 Screening for malign ant neoplasm of breast Mammogram [facility] Start: 07-09-2020 Medicare Annual Wellness Visit Medicare Annual Wellness Visit (AWV) [facility] Start: 01-28-2020 Influenza vaccinatio n given Sequential Influenza Vaccine (#1) [facility] Start: 06-27-2019 End: 06-27-2019 Clinical Support 06/27/2019 Clinical Support Primary Care [facility] Start: 06-14-2019 Administration of herpes zoster vaccine ZOSTER VACCINES (1 of 2) [facility] Comment on above: Postponed from 08/25 (Treatment Not Available) Start: 06-14-2019 Depression screening using PHQ-9 (Patient Health Questionnaire 9) score Depression Screening (PHQ9) [facility] Start: 06-14-2019 Fall risk assessment [facility] Start: 06-14-2019 History and physical examination, annual for health maintenance [facility] Start: 05-29-2019 Protein mass conc MAMMOGRAM [facility] Comment on above: Postponed from 08/25 (Patient Refused) Start: 05-29-2019 Screening mammography [facility] Comment on above: Postponed from 08/25 (Patient Refused) Start: 04-12-2019 Fall risk assessment Steadi Fa ll Risk Assessment [facility] Start: 01-25-2019 Pneumococcal vaccination PNEUMOCOCCAL VACCINE AGE 65+ (2 of 2 - PPSV23) [facility] Start: 10-25-2018 End: 10-25-2018 Office Visit 10/25/2018 Office Visit Primary Care Luigi Barriga CNP [address] [place] [address] [phone] [facility] Start: 08-10-2018 End: 08-10-2018 Ambulatory 08/10/2018 Office Visit Primary Care Luigi Barriga CNP [address] [place] [address] [phone] [facility] Start: 06-15-2018 End: 06-14-2019 Bone density scan XR Bone Density DEXA Axial Routine Disorder of bone and cartilage Expected: 06/15/2018 (Approximate), Expires: 06/14/2019 [facility] Comment on above: Expected: 06/15/2018 (Approximate), Expires: 06/14/2019 Start: 06-14-2018 End: 06-14-2018 Ambulatory 06/14/2018 Clinical Support Primary Care [facility] Start: 02-27-2018 Fall risk assessment Steadi Fa ll Risk Assessment [facility] Work Phone: Start: 02-27-2018 End: 02-27-2018 Ambulatory 02/27/2018 Office Visit Primary Care Fortino Chakraborty MD [address] [place] [address] [phone] [facility] Start: 01-27-2018 Influenza vaccination SEQUENTI AL INFLUENZA VACCINE (#1) [facility] Start: 11-07-2017 FECAL OCCULT BLOOD FECAL OCCULT BLOO D [facility] Start: 11-07-2017 Screening for malign ant neoplasm of colon Fecal Occult Blood [facility] Start: 01-27-2017 Influenza vaccination SEQUENTI AL INFLUENZA VACCINE (#1) [facility] Work Phone: Start: 01-27-2017 SEQUENTIAL INFLUENZA VACCINE (#1) SEQUENTIAL INFLUENZA VACCINE (#1) [facility] Work Phone: Start: 08-26-2015 Fall risk assessment Falls Risk Assdesire marroquin [facility] Start: 08-26-2015 Pneumococcal vaccination [facility] Start: 08-26-2015 PNEUMOCOCCAL VACCINE AGE 65+ (1 of 2 - PCV13) PNEUMOCOCCAL VACCINE AGE 65+ (1 of 2 - PCV13) [facility] Work Phone: Start: 08-26-2015 Pneumococcal Vaccine : 65+ (1 of 1 - PCV) Pneumococcal Vaccine: 65+ (1 of 1 - PCV) [facility] Start: 08-26-2015 Pneumococcal Vaccine : 65+ Years (1 - PCV) Pneumococcal Vaccine: 65+ Years (1 - PCV) [facility] Start: 08-26-2015 Pneumococcal Vaccine : 65+ Years (1 of 1 - PCV) Pneumococcal Vaccine: 65+ Years (1 of 1 - PCV) [facility] Start: 08-26-2015 Pneumococcal Vaccine : Age 65+ (1 of 1 - PPSV23) Pneumococcal Vaccine: Age 65+ (1 of 1 - PPSV23) [facility] Start: 08-26-2015 PNEUMOCOCCAL: 65+ (1 - PCV) PNEUMOCOCCAL: 65+ (1 - PCV) [facility] Start: 2010 RSV patient s and/or patients aged 60+ years (1 - 1-dose 60+ series) RSV patients and/or patients aged 60+ years (1 - 1-dose 60+ series) [facility] Start: 2010 RSV Vaccine (1 - 1-d ose 60+ series) RSV Vaccine (1 - 1-dose 60+ series) [facility] Start: 2010 Zoster vacc, sc ZOSTER VACCINE [facility] Start: 2000 Administration of herpes zoster vaccine Zoster Vaccines (1 of 2) [facility] Start: 2000 Pneumococcal vaccination PNEUMOCOCCAL VACCINE SERIES (1 of 1 - PCV) [facility] Start: 2000 Pneumococcal Vaccine : 65+ Years (1 of 1 - PCV) Pneumococcal Vaccine: 65+ Years (1 of 1 - PCV) [facility] Start: 2000 Pneumococcal Vaccine : Age 50+ (1 of 1 - PCV) Pneumococcal Vaccine: Age 50+ (1 of 1 - PCV) [facility] Start: 2000 Screening for malign ant neoplasm of colon [facility] Start: 2000 SHINGRIX VACCINE (1 of 2) SHINGRIX VACCINE (1 of 2) [facility] Start: 2000 Zoster vaccine hzv l wilfredo for subcutaneous use ZOSTER (SHINGLES) VACCINE (1 of 2) [facility] Start: 2000 ZOSTER VACCINES (1 o f 2) ZOSTER VACCINES (1 of 2) [facility] Start: 08-26-1995 COLOGUARD (FIT-DNA) COLOGUARD (FIT-D NA) [facility] Start: 08-26-[address] [facility] Start: 08-26-1995 Screening for malign ant neoplasm of colon [facility] Start: 08-26-[address] [facility] Start: 1990 Lipid panel LIPID SCREENING [facility] Start: 1990 Mammography [facility] Start: 1990 Screening for malign ant neoplasm of breast [facility] Start: 08-26-1971 Screening for malign ant neoplasm of cervix CERVICAL CANCER SCREENING DISCUSSION [facility] Start: 1968 Anxiety Screening Anxiety Screening [facility] Start: 1968 BP CONTROLLED (<130/80) BP CONTROLLE D (<130/80) [facility] Start: 1968 Depression Screening Depression Scre ening [facility] Start: 1968 Hepatitis C screening Hepatitis C [facility] Start: 1966 COVID-19 Vaccine (1 of 2) COVID-19 Vaccine (1 of 2) [facility] Start: 1962 Adolescent depressio n screening assessment Depression Screening (PHQ9) [facility] Start: 1962 COVID-19 Vaccine (1) COVID-19 Vaccin e (1) [facility] Start: 1962 Depression screening using PHQ-9 (Patient Health Questionnaire 9) score Depression Screening/Follow-Up (PHQ-2/9) [facility] Start: 08-26-1955 COVID-19 VACCINE (#1) COVID-19 VACCI NE (#1) [facility] Start: 08-26-1955 COVID-19 VACCINE (1) COVID-19 VACCIN E (1) [facility] Start: 02-25-1951 COVID-19 VACCINE (#1) COVID-19 VACCI NE (#1) [facility] Start: 1950 Fall risk assessment Falls Risk Asse ssment [facility] Start: 1950 Hepatitis C screening HEPATITI S C VIRUS SCREENING [facility] Start: 1950 Lipid panel Lipid Panel [facility] Start: 1950 Medicare Annual Wellness Visit Medicare Annual Wellness Visit (AWV) [facility] Start: 1950 Screening for malign ant neoplasm of colon [facility] Start: 1950 Screening mammography Mammogram [facility] Start: 1950 Colonoscopy COLONOSCOPY [facility] Work Phone: Start: 1950 DEXA SCAN DEXA SCAN [facility] Work Phone: Start: 1950 HEPATITIS C SCREENING HEPATITIS C SC REENING [facility] Work Phone: Start: 1950 Screening colonoscopy COLONOSCOPY [facility] Work Phone: Start: 1950 End: 1950 Screening for osteoporosis [facility] Start: 1950 TETANUS EVERY 10 YR TETANUS EVERY 10 YR [facility] Work Phone: Start: 1950 Tetanus vaccination TETANUS EVERY 10 YR [facility] Work Phone: End: 08-08-2024 BD DXA TRABECULAR BONE SCORE (TBS) BD DXA TRABECULAR BONE SCORE (TBS) Radiology Routine Encounter for screening for osteoporosis 1 Occurrences starting 07/10/2023 until 08/08/2024 [facility] Work Phone: Comment on above: 1 Occurrences starti ng 07/10/2023 until 08/08/2024 End: 08-16-2025 BD DXA TRABECULAR BONE SCORE (TBS) BD DXA TRABECULAR BONE SCORE (TBS) Radiology Routine Asymptomatic menopause 1 Occurrences starting 07/17/2024 until 08/16/2025 [facility] Comment on above: 1 Occurrences starti ng 07/17/2024 until 08/16/2025 End: 02-27-2018 CBC and Differential CBC and Differential Routine Wellness examination 1 Occurrences starting 02/27/2017 until 02/27/2018 [facility] Work Phone: Comment on above: 1 Occurrences starti ng 02/27/2017 until 02/27/2018 COLPOSCOPY COLPOSCOPY Proce dures Routine ASCUS with positive high risk HPV cervical Ordered: 07/20/2023 [facility] Work Phone: Comment on above: Ordered: 07/20/2023 COLPOSCOPY COLPOSCOPY Proce dures Routine ASCUS with positive high risk HPV cervical Ordered: 08/11/2023 [facility] Work Phone: Comment on above: Ordered: 08/11/2023 Colposcopy cervix va g eltrd conization cervix OFFICE LEEP Procedures Routine MARY II (cervical intraepithelial neoplasia II) Ordered: 10/31/2023 [facility] Work Phone: Comment on above: Ordered: 10/31/2023 End: 04-12-2019 Complete blood count with white cell differential, manual CBC and Differential Routine Wellness examination 1 Occurrences starting 04/12/2018 until 04/12/2019 [facility] Comment on above: 1 Occurrences starti ng 04/12/2018 until 04/12/2019 End: 04-12-2019 Comprehensive metabolic 2000 panel Comprehensive Metabolic Panel Routine Wellness examination 1 Occurrences starting 04/12/2018 until 04/12/2019 [facility] Comment on above: 1 Occurrences starti ng 04/12/2018 until 04/12/2019 End: 02-27-2018 Comprehensive metabolic 2000 panel Comprehensive Metabolic Panel Routine Wellness examination 1 Occurrences starting 02/27/2017 until 02/27/2018 [facility] Work Phone: Comment on above: 1 Occurrences starti ng 02/27/2017 until 02/27/2018 End: 08-16-2025 DBT Breast - bilateral screening BERNARD SCREENING W MARY Radiology Routine Encounter for screening mammogram for breast cancer 1 Occurrences starting 07/17/2024 until 08/16/2025 [facility] Work Phone: Comment on above: 1 Occurrences starti ng 07/17/2024 until 08/16/2025 End: 09-28-2025 DBT Breast - bilateral screening BERNARD SCREENING W MARY Radiology Routine Encounter for screening mammogram for breast cancer 1 Occurrences starting 08/29/2024 until 09/28/2025 [facility] Work Phone: Comment on above: 1 Occurrences starti ng 08/29/2024 until 09/28/2025 End: 01-12-2026 DBT Breast - bilateral screening BERNARD SCREENING W MARY Radiology Routine Encounter for gynecological examination (general) (routine) without abnormal findings Encounter for screening mammogram for breast cancer 1 Occurrences starting 12/13/2024 until 01/12/2026 [facility] Work Phone: Comment on above: 1 Occurrences starti ng 12/13/2024 until 01/12/2026 DBT Breast - bilater al screening BERNARD SCREENING W MARY Radiology Routine Encounter for screening mammogram for breast cancer 12/13/2024 10:25 AM EDT [facility] Work Phone: End: 09-05-2023 DBT Breast - right diagnostic for implant [facility] Work Phone: Comment on above: ONCE for 1 Occurrenc es starting 09/05/2023 until 09/05/2023 End: 08-08-2024 DXA Skeletal system.axial Views for bone density DXA-AXIAL SKELETON Radiology Routine Encounter for screening for osteoporosis Age-related osteoporosis without current pathological fracture 1 Occurrences starting 07/10/2023 until 08/08/2024 [facility] Work Phone: Comment on above: 1 Occurrences starti ng 07/10/2023 until 08/08/2024 End: 08-16-2025 DXA Skeletal system.axial Views for bone density DXA-AXIAL SKELETON Radiology Routine Asymptomatic menopause 1 Occurrences starting 07/17/2024 until 08/16/2025 [facility] Comment on above: 1 Occurrences starti ng 07/17/2024 until 08/16/2025 End: 02-19-2024 DXA-AXIAL SKELETON DXA-AXIAL SKELETON Radiology Routine Age-related osteoporosis without current pathological fracture 1 Occurrences starting 01/20/2023 until 02/19/2024 [facility] Work Phone: Comment on above: 1 Occurrences starti ng 01/20/2023 until 02/19/2024 End: 05-21-2023 ECG [address] [facility] Service Area Work Phone: Comment on above: Once for 1 Occurrenc es starting 05/21/2023 until 05/21/2023 End: 04-12-2019 ESR Velocity (Bld) Sedimentation Rate Routine Chest pain, unspecified type 1 Occurrences starting 04/12/2018 until 04/12/2019 [facility] Comment on above: 1 Occurrences starti ng 04/12/2018 until 04/12/2019 End: 05-21-2023 Extra Tubes [facility] Work Phone: Comment on above: Once (Lab) for 1 Occ urrences starting 05/21/2023 until 05/21/2023 End: 02-27-2018 Hepatitis C Antibody Hepatitis C Antibody Routine Wellness examination 1 Occurrences starting 02/27/2017 until 02/27/2018 [facility] Work Phone: Comment on above: 1 Occurrences starti ng 02/27/2017 until 02/27/2018 End: 05-21-2023 Light Blue Top [facility] Work Phone: Comment on above: Once for 1 Occurrenc es starting 05/21/2023 until 05/21/2023 End: 04-12-2019 Lipid 1996 panel Lipid Panel Routine Wellness examination 1 Occurrences starting 04/12/2018 until 04/12/2019 [facility] Comment on above: 1 Occurrences starti ng 04/12/2018 until 04/12/2019 End: 02-27-2018 Lipid panel Lipid Panel Routine Wellness examination 1 Occurrences starting 02/27/2017 until 02/27/2018 [facility] Work Phone: Comment on above: 1 Occurrences starti ng 02/27/2017 until 02/27/2018 End: 09-06-2024 MG Breast - bilateral Diagnostic BERNARD DIAGNOSTIC BILATERAL Radiology Routine Abnormal finding on breast imaging 1 Occurrences starting 08/08/2023 until 09/06/2024 [facility] Work Phone: Comment on above: 1 Occurrences starti ng 08/08/2023 until 09/06/2024 End: 04-29-2018 MG Breast - bilateral screening Mammography Screening Bilateral Routine Encounter for screening mammogram for malignant neoplasm of breast Wellness examination Postmenopausal Fibrocystic disease of both breasts 1 Occurrences starting 02/27/2017 until 04/29/2018 [facility] Work Phone: Comment on above: 1 Occurrences starti ng 02/27/2017 until 04/29/2018 End: 01-15-2026 MG Breast - left Diagnostic for implant BERNARD DIAGNOSTIC LEFT Radiology Routine Abnormal mammogram 1 Occurrences starting 12/16/2024 until 01/15/2026 [facility] Work Phone: Comment on above: 1 Occurrences starti ng 12/16/2024 until 01/15/2026 PAP TEST PAP TEST Lab Rou suni Encounter for screening for human papillomavirus (HPV) 07/10/2023 2:25 PM [facility] Work Phone: PAP TEST PAP TEST Lab Rou suni Encounter for gynecological examination (general) (routine) without abnormal findings Encounter for screening for human papillomavirus (HPV) Pap smear for cervical cancer screening 12/13/2024 8:42 AM EDT [facility] Radiography for bone length studies XR BONE LENGTH STUDY Imaging Routine Left knee pain, unspecified chronicity 12/28/2023 9:48 AM [employer] Work Phone: Radiography for bone length studies XR BONE LENGTH STUDY Imaging Routine History of total knee arthroplasty, left 09/12/2024 8:51 AM [employer] End: 12-23-2022 Screening mammography bi 2-view breast inc cad BERNARD SCREENING Radiology Routine Encounter for screening mammogram for malignant neoplasm of breast 1 Occurrences starting 11/23/2021 until 12/23/2022 [facility] Work Phone: Comment on above: 1 Occurrences starti ng 11/23/2021 until 12/23/2022 Standard ECG ECG ECG Routine Pre-op testing 01/04/2024 9:18 AM [employer] Work Phone: SURGICAL PATHOLOGY SURGICAL PATH OLOGY Lab Routine ASCUS with positive high risk HPV cervical 08/11/2023 1:51 PM EDT [facility] Work Phone: SURGICAL PATHOLOGY SURGICAL PATH OLOGY Lab Routine MARY II (cervical intraepithelial neoplasia II) 10/31/2023 11:56 AM EDT [facility] SURGICAL PATHOLOGY REQUEST SURGICAL PATHOLOGY REQUEST Surg Path Routine Osteoarthritis of left knee, unspecified osteoarthritis type Release Upon Ordering for 1 Occurrences starting 01/17/2024 [facility] Work Phone: Comment on above: Release Upon Orderin g for 1 Occurrences starting 01/17/2024 Thinprep Pap Smear, Screening Thinprep Pap Smear, Screening Routine Encounter for screening mammogram for malignant neoplasm of breast Ordered: 02/27/2017 [facility] Work Phone: Comment on above: Ordered: 02/27/2017 End: 04-12-2019 Thyrotropin Qn TSH with Reflex Free T4 Routine Wellness examination Chest pain, unspecified type 1 Occurrences starting 04/12/2018 until 04/12/2019 [facility] Comment on above: 1 Occurrences starti ng 04/12/2018 until 04/12/2019 End: 04-12-2019 Troponin measurement Troponin Routine Chest pain, unspecified type 1 Occurrences starting 04/12/2018 until 04/12/2019 [facility] Comment on above: 1 Occurrences starti ng 04/12/2018 until 04/12/2019 End: 02-27-2018 TSH with Reflex Free T4 TSH with Reflex Free T4 Routine Wellness examination 1 Occurrences starting 02/27/2017 until 02/27/2018 [facility] Work Phone: Comment on above: 1 Occurrences starti ng 02/27/2017 until 02/27/2018 Urinalysis complete panel - Urine URINALYSIS, WITH MICROSCOPIC Lab Routine Hypertension, essential 07/17/2024 1:55 PM EST [facility] Work Phone: End: 12-24-2022 Us abdominal real time w/image limited US ABD RT UPPER QUADRANT Radiology DONYA Elevated LFTs 1 Occurrences starting 11/24/2021 until 12/24/2022 [facility] Work Phone: Comment on above: 1 Occurrences starti ng 11/24/2021 until 12/24/2022 End: 09-06-2024 US Breast - left limited US BREAST LTD LEFT Radiology Routine Abnormal finding on breast imaging 1 Occurrences starting 08/08/2023 until 09/06/2024 [facility] Work Phone: Comment on above: 1 Occurrences starti ng 08/08/2023 until 09/06/2024 End: 01-15-2026 US Breast - left limited US BREAST LTD LEFT Radiology Routine Abnormal mammogram 1 Occurrences starting 12/16/2024 until 01/15/2026 [facility] Comment on above: 1 Occurrences starti ng 12/16/2024 until 01/15/2026 End: 09-06-2024 US Breast - right limited US BREAST LTD RIGHT Radiology Routine Abnormal finding on breast imaging 1 Occurrences starting 08/08/2023 until 09/06/2024 [facility] Work Phone: Comment on above: 1 Occurrences starti ng 08/08/2023 until 09/06/2024 End: 02-27-2018 XR Bone Density DEXA Axial with Vertebral Fracture and Appendicular XR Bone Density DEXA Axial with Vertebral Fracture and Appendicular Routine Wellness examination Postmenopausal 1 Occurrences starting 02/27/2017 until 02/27/2018 [facility] Work Phone: Comment on above: 1 Occurrences starti ng 02/27/2017 until 02/27/2018 XR Knee - left 3 Views XR KNEE L EFT 3 VIEWS Imaging Routine Hx of total knee arthroplasty, right 02/08/2024 1:50 PM [employer] XR Knee - left 3 Views XR KNEE L EFT 3 VIEWS Imaging Routine History of total knee arthroplasty, left 09/12/2024 8:51 AM [employer] Work Phone: XR Knee - left 3 Views XR KNEE L EFT 3 VIEWS Imaging Routine Hx of total knee arthroplasty, left 01/22/2025 11:26 AM [employer] XR Knee - left 4 Views XR KNEE L EFT 4+ VIEWS Imaging Routine Left knee pain, unspecified chronicity 12/28/2023 9:48 AM [employer] End: 01-12-2024 XR KNEE GENERAL 4V AP BOTH/PA BOTH/LAT/MERC BILATERAL XR KNEE GENERAL 4V AP BOTH/PA BOTH/LAT/MERC BILATERAL Radiology Routine Pain in both knees, unspecified chronicity 1 Occurrences starting 12/13/2022 until 01/12/2024 [facility] Work Phone: Comment on above: 1 Occurrences starti ng 12/13/2022 until 01/12/2024 End: 10-22-2022 XR KNEE GENERAL 4V AP BOTH/PA BOTH/LAT/MERC LEFT XR KNEE GENERAL 4V AP BOTH/PA BOTH/LAT/MERC LEFT Radiology Routine Left knee pain, unspecified chronicity 1 Occurrences starting 09/22/2021 until 10/22/2022 [facility] Work Phone: Comment on above: 1 Occurrences starti ng 09/22/2021 until 10/22/2022 End: 10-20-2019 XR Knee Left 4+ Views (Note in Comments) XR Knee Left 4+ Views (Note in Comments) Imaging Routine Knee pain, unspecified chronicity, unspecified laterality 1 Occurrences starting 10/19/2018 until 10/20/2019 [facility] Comment on above: 1 Occurrences starti ng 10/19/2018 until 10/20/2019 [facility] Immunizations Immunization Date Immunization Notes Care Provider Cheli [facility] 07-08-2019 influenza virus vaccine, unspecified formulation Marilyn Hair PA-C Work Phone: [facility] 02-08-2018 influenza virus vaccine, unspecified formulation Fortino Chakraborty MD Work Phone: [facility] 12-01-2014 tetanus toxoid, reduced diphtheria toxoid, and acellular pertussis vaccine, adsorbed Fortino Chakraborty [facility] Work Phone: 09-12-1991 hepatitis B vaccine, adult dosage [facility] 09-12-1991 hepatitis B vaccine, pediatric or pediatric/adolescent dosage Marilyn Hair PA-C Work Phone: [facility] 05-07-1991 hepatitis B vaccine, adult dosage [facility] 05-07-1991 hepatitis B vaccine, pediatric or pediatric/adolescent dosage Marilyn Hair PA-C Work Phone: [facility] 03-13-1991 hepatitis B vaccine, adult dosage [facility] 03-13-1991 hepatitis B vaccine, pediatric or pediatric/adolescent dosage Marilyn Hair PA-C Work Phone: [facility] Payers Date Payer Category Payer Self-pay 2019 Private Health Insurance O MEDICARE SUPPLEMENT [id number] 2019 Unknown 2015 Managed Care (unspecified) [id number] 2015 Medicare [id number] 3 2015 Medicare MEDICARE MEDICAR E PART A & B xxxxxxxxxxx 2015-Present [place] xxxxxxxxxxx [id number] 2015 Medicare [id number] .[id number] 2015 Unknown O MEDICAL MUT[place] OF [place] TRADITIONAL xxxxxxxxxxxx 2015-Present xxxxxxxxxxxx [id number] 2015 Unknown [id number] .[id number] 2014 Medicare [id number] 2014 Medicare [id number] .[id number] 2014 Unknown [id number] 2.16.840.1.575085.3.249.1 3 1950 Unknown [id number] 2.16.840.1.615414.3.579.2 .903 1950 Unknown [id number] 2.16840.1.982885.3.579.2 .903 1950 Unknown [id number] 2.16840.1.509863.3.579.2 .903 1950 Unknown [id number] 2.16.840.1.988074.3.579.2 .903 1950 Unknown [id number] 2.16.840.1.830839.3.579.2 .903 1950 Unknown [id number] 2.16840.1.232394.3.579.2 .903 1950 Unknown [id number] 2.16840.1.698902.3.579.2 .903 1950 Unknown [id number] 2.16.840.1.777736.3.579.2 .903 1950 Unknown [id number] 2.16.840.1.623487.3.579.2 .902 1950 Unknown [id number] 2.16.840.1.682060.3.579.2 .1069 1950 Unknown [id number] 2.16.840.1.946666.3.579.2 .1069 1950 Unknown [id number] 2.16.840.1.329072.3.579.2 .1069 1950 Unknown [id number] 2.16.840.1.322029.3.579.2 .1242 1950 Unknown [id number] 2.16.840.1.187721.3.579.2 .1242 1950 Unknown [id number] 2.16.840.1.000377.3.579.2 .1242 1950 Unknown [id number] 2.16.840.1.572917.3.579.2 .1242 1950 Unknown [id number] 2.16.840.1.620248.3.579.2 .1242 1950 Unknown [id number] 2.16.840.1.659619.3.579.2 .1242 1950 Unknown [id number] 2.16.840.1.617465.3.579.2 .1242 1950 Unknown [id number] 2.16.840.1.465635.3.579.2 .1242 1950 Unknown [id number] 2.16.840.1.166969.3.579.2 .1242 1950 Unknown [id number] 2.16.840.1.692595.3.579.2 .1242 1950 Unknown [id number] 2.16.840.1.278769.3.579.2 .1242 1950 Unknown [id number] 2.16.840.1.481690.3.579.2 .1242 1950 Unknown [id number] 2.16.840.1.079658.3.579.2 .1242 1950 Unknown [id number] 2.16.840.1.470040.3.579.2 .1242 1950 Unknown [id number] 2.16.840.1.097413.3.579.2 .1243 1950 Unknown [id number] 2.16.840.1.051841.3.579.2 .1243 1950 Unknown [id number] 2.16.840.1.981499.3.579.2 .1243 1950 Unknown [id number] 2.16.840.1.319742.3.579.2 .1243 1950 Unknown [id number] 2.16.840.1.229260.3.579.2 .983 1950 Unknown [id number] 2.16.840.1.134669.3.579.2 .983 1950 Unknown [id number] 2.16.840.1.024803.3.579.2 .983 1950 Unknown [id number] 2.16.840.1.570612.3.579.2 .983 1950 Unknown [id number] 2.16.840.1.848575.3.579.2 .983 1950 Unknown [id number] 2.16.840.1.047335.3.579.2 .983 Unknown [id number] 2.16.840.1.477419.3.579.2 .462 Unknown [id number] 2.16.840.1.281288.3.579.2 .462 Unknown [id number] 2.16.840.1.371132.3.579.2 .462 Social History Date Type Detail Facility Start: 01-30-2017 End: 02-21-2017 Tobacco smoking status AZIS Never smoker [facility] Work Phone: Start: 1950 Sex Assigned At Not on file [facility] Work Phone: Start: 06-14-2018 End: 10-30-2018 History SDOH Alcohol Frequency 3 [facility] Start: 06-14-2018 End: 10-30-2018 History SDOH Alcohol Std Drinks 1 [facility] Start: 06-14-2018 History SDOH Social Connections Phone 5 [facility] Start: 06-14-2018 History SDOH Social Connections Get Together 2 [facility] Start: 06-14-2018 History SDOH Physical Activity DPW 7 [facility] Start: 06-14-2018 History SDOH Physical Activity MPS 6 [facility] Start: 06-14-2018 History SDOH Education 13 [facility] Start: 01-14-2016 Alcohol Comment 5 glasses of wine a month [facility] Start: 10-30-2018 End: 12-28-2023 Tobacco use and exposure Never used [facility] Start: 10-30-2018 End: 01-22-2025 Alcohol intake Current drinker of alcohol (finding) [facility] Start: 03-15-2020 End: 05-15-2024 Exposure to SARS-CoV-2 (event) Not sure [facility] Start: 02-21-2017 Tobacco smoking consumption unknown [facility] Start: 12-09-2022 End: 01-22-2025 Non-smoker Non-smoker [facility] Work Phone: Start: 06-17-2019 History SDOH Alcohol Comment ocassional wine [facility] Start: 12-09-2022 End: 01-22-2025 Tobacco use panel [facility] Work Phone: Start: 04-29-2012 Adult Depression Screening Assessment 0 [facility] Work Phone: Start: 1950 Sex Assigned At Female [facility] Start: 02-08-2018 Gender identity Identifies as female gender (finding) [facility] Start: 12-29-2023 Alcohol Comment [facility] How often to you hav e a drink containing alcohol? Monthly or less [facility] How many standard dr inks containing alcohol do you have on a typical day? 1 or 2 [facility] How often do you hav e 6 or more drinks on 1 occasion? Never [facility] Start: 05-15-2024 Alcoholic beverage intake Lifetime non-drinker (finding) [facility] Work Phone: Start: 07-17-2024 End: 01-20-2025 Alcoholic beverage intake Ex-drinker (finding) [facility] [email or web address] the [email or web address], or [employer] threatened to shut off services in your home in past 12Mo No [facility] Do you belong to any clubs or organizations such as yarsani groups, unions, fraternal or athletic groups, or school groups? Yes [facility] Are you now , , , , never or living with a partner? [facility] Do you feel stress - tense, restless, nervous, or anxious, or unable to sleep at night because your mind is troubled all the time - these days [OSQ] Only a little [facility] (I/We) worried wheth er (my/our) food would run out before (I/we) got money to buy more. Never true [facility] Start: 02-08-2018 Sexual orientation Heterosexual (finding) [facility] Start: 06-03-2016 Sex Female (finding) [facility] Medical Equipment Procedure Code Equipment Code Equipment Origin al Text Equipment Identifier Dates Palacos R 1 X 40 Us - [id number] Start: 01-17-2024 Attune Knee Syst em Tibial Base Fixed Bearing Size 2 [id number] Start: 01-17-2024 Attube Patekka Medialized Dome [id number] Start: 01-17-2024 Attune Femoral Posterior Stabilized Narrow [id number] Start: 01-17-2024 Insert - Knee - [id number] Start: 01-17-2024 Goals Date Patient Goal Desired Activity /State Comment on above: High blood pressure makes your heart work too hard. It can cause heart attack, stroke and kidney disease. Formatting of this n ote might be different from the original. High blood pressure makes your heart work too hard. It can cause heart attack, stroke and kidney disease. Comment on above: Blood sugar levels o utside the normal range may be an indicator of diabetes. Formatting of this n ote might be different from the original. Blood sugar levels outside the normal range may be an indicator of diabetes. Clinical Notes 02-27-2017 to 03-03-2025 Nidia Dobson - 01/22/2025 11:40 AM LIVIA Abdalla - 01/22/2025 11:40 AM EDTTelephone Encounter - Debby Bonilla MA - 01/21/2025 3:21 PM EDTPatient InstructionsDischarge InstructionsAttachments Note Date & Type Note Facility 03-03-2025 Progress note [facility] 01-22-2025 History of Present illness Narrative Ortho Nurse - Established Patient Intake Room#: 5 Date: 01/22/2025 11:29 AM Patient: Liam King MR#: [id number] : 1950 Age: 74 y.o. 1yr L TKA Pt stated she is doing really good, doesn't feel 100 percent, has some tenderness in a area. Pt denies any pain at this time. Referring Physician: Vidal Jewell APRN-CNP Insurance: Payor: Medicare / Plan: Medicare A and B / Product Type: *No Product type* / Chief Complaint Patient presents with Left Knee - Follow-up Visit Vitals Ht 1.549 m (5' 1) Wt 56.7 kg (125 lb) BMI 23.62 kg/m Pain Recent Labs No results found for: CRP No results found for: SEDRATE Lab Results Component Value Date WBC 5.5 01/04/2024 HGB 15.4 01/04/2024 HCT 45.9 01/04/2024 PLATELET 209 01/04/2024 MCV 92.7 01/04/2024 History Past Medical History[1] Past Surgical History[2] Family History: Her family history includes Anesth Problems in her mother; Dementia in her father; Lung Cancer in her mother. Social History: Her reports that she has never smoked. She has never used smokeless tobacco. She reports current alcohol use. She reports that she does not use drugs. Outpatient Medications Prior to Visit Medication Sig Dispense Refill Acetaminophen 325 MG tablet Take 2 tablets by mouth every 4 hours as needed for Mild Pain. Do not exceed 4000mg of Tylenol in 24 hour period. (Patient not taking: Reported on 09/12/2024) 50 tablet 1 Amoxicillin 500 MG capsule Take 4 capsules 1 hour before procedure (Patient not taking: Reported on 09/12/2024) 8 capsule [address] Aspirin [address] tablet Take 1 tablet by mouth 2 times daily. This medication is for blood clot prevention. Take with food. 60 tablet 0 Celecoxib 200 MG capsule Take 1 capsule by mouth 2 times daily. Take with food. 84 capsule 0 Cholecalciferol (D3 VITAMIN PO) Take by mouth. Docusate 100 MG capsule Take 1 capsule by mouth 2 times daily. Hold for loose stools. (Patient not taking: Reported on 09/12/2024) 60 capsule 0 hydroCODone-acetaminophen 5-325 MG tablet Take 1-2 tablets by mouth every 6 hours as needed for up to 7 days. Do not take over 4000mg acetaminophen daily. 30 tablet 0 Lisinopril 10 MG tablet Take 1 tablet by mouth daily. naloxone 4 MG/0.1ML 1 spray by Nasal route once for 1 dose. Blair into the nose as directed. Call 911. If no response in 2 minutes use a new nasal spray in other nostril. Repeat until help arrives. 1 Each 0 omeprazole [address] capsule Take 1 capsule by mouth daily. (Patient not taking: Reported on 09/12/2024) 30 capsule 0 Ondansetron 4 MG tablet Take 1 tablet by mouth every 8 hours as needed for Nausea / Vomiting. (Patient not taking: Reported on 09/12/2024) 6 tablet 0 oxyCODONE 5 MG tablet Take 1-2 tabs every 4-6 hours as needed for severe pain. Wean as tolerated 30 tablet 0 therapeutic multivitamin-minerals tablet Take 1 tablet by mouth at bedtime. (Patient not taking: Reported on 09/12/2024) 30 tablet 0 No facility-administered medications prior to visit. Current Medications[3] Allergies: She is allergic to demerol hcl [meperidine] and sodium pentobarbital [pentobarbital]. [1] Past Medical History: Diagnosis Date Arthritis Essential hypertension, benign GERD (gastroesophageal reflux disease) [2] Past Surgical History: Procedure Laterality Date ARTHROPLASTY KNEE TOTAL Left 01/17/2024 Laterality: Left; Surgeon: Rosalinda Barajas MD; Location: [facility] OR EXENTERATION PELVIC/GYNECOLOGIC ANTERIOR 2007 at [place] COLONOSCOPY DIAGNOSTIC x 2 [3] Current Outpatient Medications: Acetaminophen 325 MG tablet, Take 2 tablets by mouth every 4 hours as needed for Mild Pain. Do not exceed 4000mg of Tylenol in 24 hour period. (Patient not taking: Reported on 09/12/2024), Disp: 50 tablet, Rfl: 1 Amoxicillin 500 MG capsule, Take 4 capsules 1 hour before procedure (Patient not taking: Reported on 09/12/2024), Disp: 8 capsule, Rfl: 1 Aspirin [address] tablet, Take 1 tablet by mouth 2 times daily. This medication is for blood clot prevention. Take with food., Disp: 60 tablet, Rfl: 0 Celecoxib 200 MG capsule, Take 1 capsule by mouth 2 times daily. Take with food., Disp: 84 capsule, Rfl: 0 Cholecalciferol (D3 VITAMIN PO), Take by mouth., Disp: , Rfl: Docusate 100 MG capsule, Take 1 capsule by mouth 2 times daily. Hold for loose stools. (Patient not taking: Reported on 09/12/2024), Disp: 60 capsule, Rfl: 0 hydroCODone-acetaminophen 5-325 MG tablet, Take 1-2 tablets by mouth every 6 hours as needed for up to 7 days. Do not take over 4000mg acetaminophen daily., Disp: 30 tablet, Rfl: 0 Lisinopril 10 MG tablet, Take 1 tablet by mouth daily., Disp: , Rfl: naloxone 4 MG/0.1ML, 1 spray by Nasal route once for 1 dose. Blair into the nose as directed. Call 911. If no response in 2 minutes use a new nasal spray in other nostril. Repeat until help arrives., Disp: 1 Each, Rfl: 0 omeprazole [address] capsule, Take 1 capsule by mouth daily. (Patient not taking: Reported on 09/12/2024), Disp: 30 capsule, Rfl: 0 Ondansetron 4 MG tablet, Take 1 tablet by mouth every 8 hours as needed for Nausea / Vomiting. (Patient not taking: Reported on 09/12/2024), Disp: 6 tablet, Rfl: 0 oxyCODONE 5 MG tablet, Take 1-2 tabs every 4-6 hours as needed for severe pain. Wean as tolerated, Disp: 30 tablet, Rfl: 0 therapeutic multivitamin-minerals tablet, Take 1 tablet by mouth at bedtime. (Patient not taking: Reported on 09/12/2024), Disp: 30 tablet, Rfl: 0 HPI: Patient is here today for evaluation of their operative knee. She is status post total knee arthroplasty. She is about a year out, reports that she is doing well and is pleased with the outcome of the intervention. The knee feels better now than it did before, and she is not having any new symptoms with it. PHYSICAL EXAM: The operative lower extremity is soft, nontender, full and supple motion. No pain, no impingement. No instability. She has full return of motion, 0-125 degrees, stable examination to varus and valgus stress with normal balance throughout the arc of motion. The contralateral extremity has full motion, normal stability, no tenderness. Both extremities have normal neurovascular status. Skin is otherwise intact. DIAGNOSTIC STUDIES/INTERPRETATION: Plain film radiographs reviewed. She has a Cemented total knee arthroplasty in good position and alignment. No evidence of prosthetic implant loosening or migration. IMPRESSION: Stable status post total knee arthroplasty, doing well. PLAN: I am pleased with the outcome of intervention. She has made an excellent recovery. I expect continued improvement in strength and mobility moving forward. I recommend followup in 2 years for repeat clinical and radiographic examination or sooner if any new symptoms develop. Tylenol may be used to manage any aches and pains as needed. She will call with any questions or concerns in the meantime. Greater than 20 minutes time was spent in review of the medical records, review of previous imaging, and more than 50% of that time was spent on face to face time with patient. LIVIA Russell I have reviewed the findings of the clinical care support representative and agree with their assessment. Ortho Nurse - Established Patient Intake Room#: 5 Date: 01/22/2025 11:29 AM Patient: Liam King MR#: [id number] : 1950 Age: 74 y.o. 1yr L TKA Pt stated she is doing really good, doesn't feel 100 percent, has some tenderness in a area. Pt denies any pain at this time. Referring Physician: Vidal Jewell APRN-CNP Insurance: Payor: Medicare / Plan: Medicare A and B / Product Type: *No Product type* / Chief Complaint Patient presents with Left Knee - Follow-up Visit Vitals Ht 1.549 m (5' 1) Wt 56.7 kg (125 lb) BMI 23.62 kg/m Pain Recent Labs No results found for: CRP No results found for: SEDRATE Lab Results Component Value Date WBC 5.5 01/04/2024 HGB 15.4 01/04/2024 HCT 45.9 01/04/2024 PLATELET 209 01/04/2024 MCV 92.7 01/04/2024 History Past Medical History[1] Past Surgical History[2] Family History: Her family history includes Anesth Problems in her mother; Dementia in her father; Lung Cancer in her mother. Social History: Her reports that she has never smoked. She has never used smokeless tobacco. She reports current alcohol use. She reports that she does not use drugs. Outpatient Medications Prior to Visit Medication Sig Dispense Refill Acetaminophen 325 MG tablet Take 2 tablets by mouth every 4 hours as needed for Mild Pain. Do not exceed 4000mg of Tylenol in 24 hour period. (Patient not taking: Reported on 09/12/2024) 50 tablet 1 Amoxicillin 500 MG capsule Take 4 capsules 1 hour before procedure (Patient not taking: Reported on 09/12/2024) 8 capsule 1 Aspirin [address] tablet Take 1 tablet by mouth 2 times daily. This medication is for blood clot prevention. Take with food. 60 tablet 0 Celecoxib 200 MG capsule Take 1 capsule by mouth 2 times daily. Take with food. 84 capsule 0 Cholecalciferol (D3 VITAMIN PO) Take by mouth. Docusate 100 MG capsule Take 1 capsule by mouth 2 times daily. Hold for loose stools. (Patient not taking: Reported on 09/12/2024) 60 capsule 0 hydroCODone-acetaminophen 5-325 MG tablet Take 1-2 tablets by mouth every 6 hours as needed for up to 7 days. Do not take over 4000mg acetaminophen daily. 30 tablet 0 Lisinopril 10 MG tablet Take 1 tablet by mouth daily. naloxone 4 MG/0.1ML 1 spray by Nasal route once for 1 dose. Blair into the nose as directed. Call 911. If no response in 2 minutes use a new nasal spray in other nostril. Repeat until help arrives. 1 Each 0 omeprazole [address] capsule Take 1 capsule by mouth daily. (Patient not taking: Reported on 09/12/2024) 30 capsule 0 Ondansetron 4 MG tablet Take 1 tablet by mouth every 8 hours as needed for Nausea / Vomiting. (Patient not taking: Reported on 09/12/2024) 6 tablet 0 oxyCODONE 5 MG tablet Take 1-2 tabs every 4-6 hours as needed for severe pain. Wean as tolerated 30 tablet 0 therapeutic multivitamin-minerals tablet Take 1 tablet by mouth at bedtime. (Patient not taking: Reported on 09/12/2024) 30 tablet 0 No facility-administered medications prior to visit. Current Medications[3] Allergies: She is allergic to demerol hcl [meperidine] and sodium pentobarbital [pentobarbital]. [1] Past Medical History: Diagnosis Date Arthritis Essential hypertension, benign GERD (gastroesophageal reflux disease) [2] Past Surgical History: Procedure Laterality Date ARTHROPLASTY KNEE TOTAL Left 01/17/2024 Laterality: Left; Surgeon: Rosalinda Barajas MD; Location: [facility] OR EXENTERATION PELVIC/GYNECOLOGIC ANTERIOR 2007 at [place] COLONOSCOPY DIAGNOSTIC x 2 [3] Current Outpatient Medications: Acetaminophen 325 MG tablet, Take 2 tablets by mouth every 4 hours as needed for Mild Pain. Do not exceed 4000mg of Tylenol in 24 hour period. (Patient not taking: Reported on 09/12/2024), Disp: 50 tablet, Rfl: 1 Amoxicillin 500 MG capsule, Take 4 capsules 1 hour before procedure (Patient not taking: Reported on 09/12/2024), Disp: 8 capsule, Rfl: [address] Aspir[address] tablet, Take 1 tablet by mouth 2 times daily. This medication is for blood clot prevention. Take with food., Disp: 60 tablet, Rfl: 0 Celecoxib 200 MG capsule, Take 1 capsule by mouth 2 times daily. Take with food., Disp: 84 capsule, Rfl: 0 Cholecalciferol (D3 VITAMIN PO), Take by mouth., Disp: , Rfl: Docusate 100 MG capsule, Take 1 capsule by mouth 2 times daily. Hold for loose stools. (Patient not taking: Reported on 09/12/2024), Disp: 60 capsule, Rfl: 0 hydroCODone-acetaminophen 5-325 MG tablet, Take 1-2 tablets by mouth every 6 hours as needed for up to 7 days. Do not take over 4000mg acetaminophen daily., Disp: 30 tablet, Rfl: 0 Lisinopril 10 MG tablet, Take 1 tablet by mouth daily., Disp: , Rfl: naloxone 4 MG/0.1ML, 1 spray by Nasal route once for 1 dose. Blair into the nose as directed. Call 911. If no response in 2 minutes use a new nasal spray in other nostril. Repeat until help arrives., Disp: 1 Each, Rfl: 0 omeprazole [address] capsule, Take 1 capsule by mouth daily. (Patient not taking: Reported on 09/12/2024), Disp: 30 capsule, Rfl: 0 Ondansetron 4 MG tablet, Take 1 tablet by mouth every 8 hours as needed for Nausea / Vomiting. (Patient not taking: Reported on 09/12/2024), Disp: 6 tablet, Rfl: 0 oxyCODONE 5 MG tablet, Take 1-2 tabs every 4-6 hours as needed for severe pain. Wean as tolerated, Disp: 30 tablet, Rfl: 0 therapeutic multivitamin-minerals tablet, Take 1 tablet by mouth at bedtime. (Patient not taking: Reported on 09/12/2024), Disp: 30 tablet, Rfl: 0 documented in this encounter [facility] 01-21-2025 Telephone encounter Note Call to pt and notified her of results and recommendations below from Provider. States most of her life she's had elevated LDL and low HDL. Has been trying to watch diet, but will work harder on this. Debby Bonilla MA [facility] 01-21-2025 Miscellaneous Notes Call to pt and notified her of results and recommendations below from Provider. States most of her life she's had elevated LDL and low HDL. Has been trying to watch diet, but will work harder on this. Debby Bonilla MA Let patient know lipid panel showed Trigs elevated ta 178 (goal<150), HDL low at 36( goal>50) and LDL slightly elevated at 138 (goal<130). Advise working on decreased fat in her diet and increased walking for exercise. Her A1c is still slightly elevated but stable at 5.7%. advise working on decreased sugars, sweets, carbs and starches in diet. All her other labs and UA were ok. documented in this encounter [facility] 01-21-2025 Telephone encounter Note Let patient know lipid panel showed Trigs elevated ta 178 (goal<150), HDL low at 36( goal>50) and LDL slightly elevated at 138 (goal<130). Advise working on decreased fat in her diet and increased walking for exercise. Her A1c is still slightly elevated but stable at 5.7%. advise working on decreased sugars, sweets, carbs and starches in diet. All her other labs and UA were ok. [facility] 01-20-2025 Instructions Bhanu Meng MD - 01/20/2025 10:56 AM EDT Please get labs done on or after 07/11/2025 prior to your next visit. Please consider getting the Tdap for tetanus update at a local pharmacy We discussed your overall health and recent updates: - You reported that your knee replacement surgery from January 16 of last year has gone well, with about 85% healing. You are following up with Dr. Barajas this Monday for further evaluation. We discussed your blood pressure: - Your blood pressure today was 158/88. At home, you typically measure between 130-140/80-85. - Please monitor your blood pressure once daily at different times (morning, afternoon, evening) for one week. Record the date, time, and readings, and send me a Cognio message with the results in about a week or two. We discussed your pelvic health: - You have been diagnosed with a cystocele (bladder prolapse) and rectocele (rectal prolapse). You are currently undergoing pelvic floor physical therapy, which may help strengthen the area and reduce symptoms. You have six more weeks of therapy remaining. - You also have an external hemorrhoid that may be contributing to mild stool leakage. After bowel movements, use toilet paper to clean thoroughly, including gently pushing up to remove any residual stool, to help reduce leakage and irritation. Hemorrhoid surgery is an option if symptoms worsen. We discussed your acid reflux: - You experience mild acid reflux with phlegm about twice a month. No additional treatment is needed at this time. We discussed your mammogram history: - You shared that your recent mammogram at [facility] was normal, and no further imaging is needed. Follow up with your next routine mammogram in one year. We discussed your diet and exercise: - You are eating a healthy diet, walking regularly, and plan to join an exercise class this winter. Continue these efforts to maintain your health. We discussed your vaccinations: - You are due for a tetanus booster. Medicare will cover this at a local pharmacy, as it cannot be administered in the office. I have noted this in your chart. We discussed your labs: - I have ordered your routine labs, including an A1c test, which you can complete today. If not done today, please complete them before your next visit. Follow-up: - Please send me your blood pressure readings in about one to two weeks via Cognio. - Return to the office in six months for your routine follow-up. If you experience any new or worsening symptoms, please contact the office sooner. documented in this encounter [facility] 01-20-2025 History of Present illness Narrative Images from the original note were not included. Liam King is a 74 year old female here for a Medicare wellness visit. Medicare Health Risk Assessment General Health Very good Exercise: Minutes/Day 30 min Exercise: Days/Week 6 days Alcohol: Daily Use Never Alcohol: Drinks/Day Patient does not drink Alcohol: 6 or more drinks Never Feel off balance No Concerns: Teeth/Dentures No Concerns: Sexual function No Troubled by feelings None of the above Frequency: Eating healthy diet Nearly every day ADLs requiring help None of the above Safety precautions in home/vehicle No (Rugs in home, no grab bars in bathroom. Following all other safety precautions) Smoke, vape, chews tobacco No Difficulty hearing No Difficulty seeing No Current Providers Specialists: I have reviewed specialist-related care of the patient in the medical record. Medical/Family history review Reviewed and updated problem list, medical/surgical/family/social history, medications, and allergies. Opioid use review Opioid Medications (last 90 days) No data to display Anxiety/Depression screening PHQ-2 Score: 0 (Lower risk for depression) DOMENIC-2 Score: 0 (Lower risk for anxiety) Recommendation: no further intervention at this time Cognitive screening Mini Cog Score: 5 Cognitive screening reviewed and No further action needed (score 3-5). Mini-Cog Patient asked to remember the following three words: Banana, [place] and Chair Visuospatial/Executive Functioning: Clock drawin/2 (Normal clock with all number in correct sequence and position, hands are correct = 2 points, inability or refusal to draw a clock = 0) Three word recall: 3/3 Total score: 5/5 (Total score = word recall score + clock draw score) Functional Observation Was the patient's Timed Up & Go test unsteady or >= 12 seconds? No Advance Care Planning Surrogate decision maker and/or advance care plan documented Measurements BP 158/88 Pulse 74 Resp 16 Ht 151.8 cm (4' 11.75) Wt 57.3 kg (126 lb 6.4 oz) LMP 07/28/2019 BMI 24.89 kg/m Vision Screening: Follows with optometry/ophthalmology Assessment/Plan Medicare annual wellness visit, subsequent (Z00.00) - Counseled on healthy diet and regular exercise - Fall avoidance information provided - Personalized prevention plan provided See HPI Chief Complaint Patient presents with: Medicare Wellness Exam HPI Liam King is a 74 year old female who presents here today for a Medicare wellness and a routine follow up. Patient with hx of HTN, elevated glucose, Dyslipidemia, osteoporosis, and those as reviewed below. Nelsy reports a busy year and a half, during which she underwent a right knee replacement on 01/16 of last year. She reports a good outcome from the surgery, stating that she can walk now and has a nice range of motion, though she notes that the knee is not fully healed and is about 85% healed. She has a follow-up appointment with her orthopedic surgeon, Dr. Barajas, this Monday. She has been eating well, focusing on red and white foods, and hopes that her A1c and cholesterol levels are lower. She reports being able to walk a mile without dyspnea and has been staying active by walking around her condo complex and using the pool. She plans to join an exercise class this winter. She has completed her advanced directives, including her power of retail solar advisor and living will, and has her son, Yobany Laurent, listed as her healthcare power of retail solar advisor. She reports a history of fibrocystic breast condition since her 20s and had a scare last year with an abnormal mammogram, which led to an ultrasound that found nothing. She had a recent mammogram a couple of weeks ago at the [facility], which was normal, and she was advised to return in a year. She reports occasional acid reflux with phlegm, occurring about twice a month, but denies any recent fevers, frequent headaches, sudden changes in hearing or vision, issues with her nose or throat, hemoptysis, chest pain, palpitations, leg swelling, frequent nausea, emesis, or diarrhea. She also denies any recent hematuria or hematochezia. She has been undergoing pelvic floor strengthening exercises at a rehab facility on [facility] for a weak pelvic wall and a cystocele, as advised by her company dancer. She has about six more weeks of therapy left. She also reports an external hemorrhoid that is causing some discomfort. She denies any other joint pains, skin lesions, rashes, or sores, and has not noticed any easy bruising or bleeding recently. She denies any changes in her tolerance to heat or cold, recent increase in thirst, syncope, seizures, or tremors. She monitors her blood pressure at home, with readings typically between 130-140/80-85. She drinks plenty of water and takes care of herself well. She does not drink alcohol or smoke, but does have a gaytan coke about three times a week. She has not taken any vacations recently but has had some getaways to see the [facility] [employer] and visit orchards and bird sanctuaries. She also mentions that her has some health issues, so she has been keeping an eye on him. Past medical history, appointments, medications, allergies reviewed. Previous Medical History PAST MEDICAL HISTORY Diagnosis Date Abnormal glandular Papanicolaou smear of cervix 12/19/2024 December 19, 2024 ASCUS, HPV negative. Repeat pap 1 year. 2023 LEEP: HSIL, margins negative. 2023 colpo: MARY II 2023 pap: ASCUS, HPV HR+ Age-related osteoporosis without current pathological fracture 01/06/2021 patient declines treatment beyond calcium and vit d as of 01/06/21. Repeat bone density in 2 years Arthritis of both knees 04/29/2020 Sever on right and moderate on left of medial joint spaces. ASCUS with positive high risk HPV cervical 2023 MARY II (cervical intraepithelial neoplasia II) Dyslipidemia 01/10/2024 Dysplasia of cervix, high grade MARY 2 Elevated fasting glucose 07/08/2019 Family history of thyroid disease 10/25/2016 Hemorrhage of rectum and anus 08/03/2005 Hypertension, essential 01/16/[address] 01/20/2025 DPA: Yobany Laurent (son) Low serum vitamin B12 07/25/2023 Medicare annual wellness visit, subsequent 10/25/2016 last done: 10/25/2016 Osteoporosis Pain in left knee 05/06/2015 Paresthesia 07/25/2023 Hands and Feet: 06/2023 B12 low so started on B12. If no improvement may need NCS/EMG's Renal cyst 11/26/2021 Varicose veins 05/06/2015 Previous Surgical History PAST SURGICAL HISTORY Procedure Laterality Date CERVIX UTERI CONIZA LP ELCTRO EXCI 10/2023 LEEP COLONOSCOPY 2005 COLONOSCOPY SCREENING 12/2022 IMMUNOCHEMICAL FECAL OCCULT BLOOD TEST 11/08/2016 negative PAST SURGICAL HISTORY OF 1977 varicose veins stripped bilateral. PAST SURGICAL HISTORY OF sclerotherapy several times PAST SURGICAL HISTORY OF 2007 anterior vaginal repair prolapse TOTAL KNEE REPLACEMENT Left 12/2023 Family History FAMILY HISTORY Problem Relation Age of Onset Cancer Mother smoker, lung Thyroid Mother Alzheimer's Disease Father Heart disease Sister Stroke Maternal Grandfather Diabetes Paternal Grandmother Patient Allergies ALLERGIES No Known Allergies Current Medications Current Outpatient Medications on File Prior to Visit Medication Sig Cholecalciferol, Vitamin D3, 1,000 unit cap Take 2,000 Units by mouth once daily. No current facility-administered medications on file prior to visit. Social History SOCIAL HISTORY[1] Review of Symptoms REVIEW OF SYSTEMS GENERAL: No weight loss, malaise or fevers HEENT: Negative for frequent or significant headaches, No changes in hearing or vision, no nose bleeds or other nasal problems NECK: Negative for lumps, goiter, pain and significant neck swelling RESPIRATORY: Negative for cough, hemoptysis, wheezing, COPD, dyspnea or shortness of breath CARDIOVASCULAR: Negative for chest pain, leg swelling, hypertension, CHF or palpitations GI: No nausea, vomiting, or diarrhea, No frequent heartburn or reflux symptoms, and no blood : No history of dysuria, frequency or blood. MUSCULOSKELETAL: Negative for joint pain or swelling, back pain or muscle pain SKIN: Negative for lesions, rash, and itching PSYCH: Negative for sleep disturbance, mood disorder and recent psychosocial stressors HEMATOLOGY/LYMPHOLOGY: Negative for prolonged bleeding, bruising easily or swollen nodes ENDOCRINE: Negative for cold or heat intolerance, polyuria, polydipsia and goiter NEURO: No history of headaches, syncope, paralysis, seizures or tremors SEE HPI EXAM: BP 158/88 Pulse 74 Resp 16 Ht 151.8 cm (4' 11.75) Wt 57.3 kg (126 lb 6.4 oz) LMP 07/28/2019 BMI 24.89 kg/m BP 158/88 Pulse 74 Resp 16 Ht 151.8 cm (4' 11.75) Wt 57.3 kg (126 lb 6.4 oz) LMP 07/28/2019 BMI 24.89 kg/m Last 5 Encounter Wt Readings: Date: Wt: 01/20/2025 57.3 kg (126 lb 6.4 oz) 12/13/2024 57.2 kg (126 lb) 08/29/2024 57 kg (125 lb 10.6 oz) 07/17/2024 57.2 kg (126 lb) 01/10/2024 57.2 kg (126 lb) General Appearance: Well appearing, alert, in no acute distress, well-hydrated, well nourished.. Skin: Skin color, texture, turgor normal, no suspicious rashes or lesions. In areas visible. Patient declined gown. Head: Normocephalic, no masses, lesions, tenderness or abnormalities. Eyes: Anicteric sclera. Pupils are equally round and reactive to light. Extraocular movements are intact. . Ears: External ears, TM's normal, canals clear. Nose/Sinuses: Nares normal, septum [...] clubbing or cyanosis. Good capillary refill. . Musculoskeletal: Muscular strength intact, No joint swelling, deformity, or tenderness. Peripheral Pulses: Normal. Neurologic: Gait normal. Reflexes normal and symmetric. Sensation to light touch and crainal nerves 2-12 intact.. Health Maintenance List Bone Density Screening due on 12/21/2022 Advance Directive Discussion due on 05/29/2024 Medicare Annual Wellness Visit due on 01/09/2025 DTaP,Tdap,Td Vaccine(2 - Td or Tdap) due on 01/20/2026 Influenza Vaccine(1) due on 01/27/2025 Mammogram Screening due on 12/13/2025 Cervical Cancer Screening due on 12/13/2025 Annual PCP Team Chronic Disease Visit due on 01/20/2026 Depression Screening due on 01/20/2026 Anxiety Screening due on 01/20/2026 Diabetes Screening due on 07/12/2027 Lipid Screening due on 07/12/2029 Hepatitis C Screening Completed Colorectal Cancer Screening Discontinued RSV Vaccine Discontinued Shingrix Vaccine Discontinued Pneumococcal Vaccine: 50+ Discontinued Data reviewed Assessment and Plan 1. Medicare annual wellness visit, subsequent (Z00.00) Patient seen for a subsequent Medicare annual wellness visit. - Reviewed health maintenance, screening, and immunization status. - Discussed advanced directives and encouraged patient to provide copies for chart. - Recommended tetanus booster; advised patient to obtain at local pharmacy. - Follow-up in 6 months for routine care. 2. Hypertension, essential (I10) BP today 158/88; patient reports home readings typically 130-140/80-85. - Advised patient to monitor BP at home once daily at varying times (morning, afternoon, evening) and to send readings via [employer]Setter[employer] in 1-2 weeks. - Encouraged continuation of dietary modifications and regular exercise. - check CMP, lipid and UA 3. Dyslipidemia (E78.5) Patient has been making dietary changes and increasing physical activity. - Ordered labs today to assess current lipid levels, CMP and UA. 4. Elevated fasting glucose (R73.01) Patient has been making dietary changes and increasing physical activity. - Ordered A1c 5. Advance directive discussed with patient (Z71.89) Patient has completed healthcare power of retail solar advisor and living will; son Yobany Laurent is designated as healthcare power of retail solar advisor. - Advised patient to provide copies of healthcare power of retail solar advisor and living will for chart. 6. Low serum vitamin B12 (E53.8) - check B12 7. Paresthesia (R20.2) - await B12 labs 8. Family history of thyroid disease (Z83.49) - check TSH 9. Age-related osteoporosis without current pathological fracture (M81.0) - check Vit D. - cont Vit D and Ca replacement. 10. Encounter for screening examination for other mental health and behavioral disorders (Z13.39) - no issues 11. Screening for depression (Z13.31) - no issues. F/u in 6 months check lipid and A1c prior Bhanu Meng MD I spent a total of 40 minutes on the date of the service which included preparing to see the patient, [id number] patient care, completing clinical documentation, performing a medically appropriate examination, counseling and educating the patient/family/caregiver and ordering medications, tests, or procedures. Recording using Pathflow software for draft documentation of the visit was discussed with the patient/authorized operations representative; all questions welcomed and answered. Patient/authorized operations representative agreed to proceed [1] Social History Tobacco Use Smoking status: Never Smokeless tobacco: Never Vaping Use Vaping status: Never Used Substance Use Topics Alcohol use: Not Currently Comment: ocassional wine Drug use: Never documented in this encounter [facility] 01-20-2025 Note HNO ID: [id number] Author: BHANU MENG MD Service: ? Author Type: Physician Type: Progress Notes Filed: 01/20/2025 16:41 Note Text: Liam King is a 74 year old female here for a Medicare wellness visit. Medicare Health Risk Assessment General Health Very good Exercise: Minutes/Day 30 min Exercise: Days/Week 6 days Alcohol: Daily Use Never Alcohol: Drinks/Day Patient does not drink Alcohol: 6 or more drinks Never Feel off balance No Concerns: Teeth/Dentures No Concerns: Sexual function No Troubled by feelings None of the above Frequency: Eating healthy diet Nearly every day ADLs requiring help None of the above Safety precautions in home/vehicle No (Rugs in home, no grab bars in bathroom. Following all other safety precautions) Smoke, vape, chews tobacco No Difficulty hearing No Difficulty seeing No Current Providers Specialists: I have reviewed specialist-related care of the patient in the medical record. Medical/Family history review Reviewed and updated problem list, medical/surgical/family/social history, medications, and allergies. Opioid use review Opioid Medications (last 90 days) No data to display Anxiety/Depression screening PHQ-2 Score: 0 (Lower risk for depression) DOMENIC-2 Score: 0 (Lower risk for anxiety) Recommendation: no further intervention at this time Cognitive screening Mini Cog Score: 5 Cognitive screening reviewed and No further action needed (score 3-5). Mini-Cog Patient asked to remember the following three words: Banana, [place] and Chair Visuospatial/Executive Functioning: Clock drawin/2 (Normal clock with all number in correct sequence and position, hands are correct = 2 points, inability or refusal to draw a clock = 0) Three word recall: 3/3 Total score: 5/5 (Total score = word recall score + clock draw score) Functional Observation Was the patient's Timed Up AND Go test unsteady or >= 12 seconds? No Advance Care Planning Surrogate decision maker and/or advance care plan documented Measurements BP 158/88 Pulse 74 Resp 16 Ht 151.8 cm (4' 11.75) Wt 57.3 kg (126 lb 6.4 oz) LMP 07/28/2019 BMI 24.89 kg/m? Vision Screening: Follows with optometry/ophthalmology Assessment/Plan Medicare annual wellness visit, subsequent (Z00.00) - Counseled on healthy diet and regular exercise - Fall avoidance information provided - Personalized prevention plan provided See HPI Chief Complaint Patient presents with: Medicare Wellness Exam HPI Liam King is a 74 year old female who presents here today for a Medicare wellness and a routine follow up. Patient with hx of HTN, elevated glucose, Dyslipidemia, osteoporosis, and those as reviewed below. Nelsy reports a busy year and a half, during which she underwent a right knee replacement on 01/16 of last year. She reports a good outcome from the surgery, stating that she can walk now and has a nice range of motion, though she notes that the knee is not fully healed and is about 85% healed. She has a follow-up appointment with her orthopedic surgeon, Dr. Barajas, this Monday. She has been eating well, focusing on red and white foods, and hopes that her A1c and cholesterol levels are lower. She reports being able to walk a mile without dyspnea and has been staying active by walking around her [employer] complex and using the pool. She plans to join an exercise class this winter. She has completed her advanced directives, including her power of retail solar advisor and living will, and has her son, Yobany Laurent, listed as her healthcare power of retail solar advisor. She reports a history of fibrocystic breast condition since her 20s and had a scare last year with an abnormal mammogram, which led to an ultrasound that found nothing. She had a recent mammogram a couple of weeks ago at the [facility], which was normal, and she was advised to return in a year. She reports occasional acid reflux with phlegm, occurring about twice a month, but denies any recent fevers, frequent headaches, sudden changes in hearing or vision, issues with her nose or throat, hemoptysis, chest pain, palpitations, leg swelling, frequent nausea, emesis, or diarrhea. She also denies any recent hematuria or hematochezia. She has been undergoing pelvic floor strengthening exercises at a rehab facility on [facility] for a weak pelvic wall and a cystocele, as advised by her company dancer. She has about six more weeks of therapy left. She also reports an external hemorrhoid that is causing some discomfort. She denies any other joint pains, skin lesions, rashes, or sores, and has not noticed any easy bruising or bleeding recently. She denies any changes in her tolerance to heat or cold, recent increase in thirst, syncope, seizures, or tremors. She monitors her blood pressure at home, with readings typically between 130-140/80-85. She drinks plenty of water and t (more content not included)... [facility] 01-08-2025 Telephone encounter Note Pt notified of same. Taylor Vasquez LPN [facility] 01-08-2025 Miscellaneous Notes Pt notified of same. Taylor Vasquez LPN ----- Message from Marilyn Hair PA-C sent at 01/08/2025 12:35 PM EDT ----- Normal mammogram. Repeat in 1 year. ----- Message ----- From: Mariella Moore In Sent: 01/08/2025 9:51 AM EDT To: Marilyn Hair PA-C documented in this encounter [facility] 01-08-2025 Telephone encounter Note ----- Message from Marilyn Hair PA-C sent at 01/08/2025 12:35 PM EDT ----- Normal mammogram. Repeat in 1 year. ----- Message ----- From: Mariella Moore In Sent: 01/08/2025 9:51 AM EDT To: Marilyn Hair PA-C [facility] 01-08-2025 History of Present illness Narrative Radiology Service Progress Note PATIENT NAME: Liam King DATE OF SERVICE: January 08, 2025 TIME: 9:46 AM PATIENT IDENTITY VERIFICATION COMPLETED USING TWO (2) IDENTIFIERS: Name and Date of confirmed by patient verbally. FALL SCREENING: Has the patient had 2 falls in the last year or 1 fall with injury or currently using an Ambulatory Assistive Device (Walker, Cane, Wheelchair, Crutches, etc.)? No PATIENT GENDER DATA: Assigned female at . status: : No status: NO. PATIENT RELEVANT IMPLANT DATA REVIEWED: Not Applicable PATIENT PRESENTS WITH AN IMPLANTABLE OR ATTACHED INSPECTORS AND REGULATORY OFFICERS: No RADIOLOGY DEPARTMENT: Mammography PERIPHERAL IV DATA: Not applicable SIGNED BY: RT Eloy(R) January 08, 2025 9:46 AM documented in this encounter [facility] 01-08-2025 Note HNO ID: [id number] Author: SHENA RIZO RT(R) Service: ? Author Type: Technologist Type: Progress Notes Filed: 01/08/2025 09:47 Note Text: Radiology Service Progress Note PATIENT NAME: Liam King DATE OF SERVICE: January 08, 2025 TIME: 9:46 AM PATIENT IDENTITY VERIFICATION COMPLETED USING TWO (2) IDENTIFIERS: Name and Date of confirmed by patient verbally. FALL SCREENING: Has the patient had 2 falls in the last year or 1 fall with injury or currently using an Ambulatory Assistive Device (Walker, Cane, Wheelchair, Crutches, etc.)? No PATIENT GENDER DATA: Assigned female at . status: : No status: NO. PATIENT RELEVANT IMPLANT DATA REVIEWED: Not Applicable PATIENT PRESENTS WITH AN IMPLANTABLE OR ATTACHED INSPECTORS AND REGULATORY OFFICERS: No RADIOLOGY DEPARTMENT: Mammography PERIPHERAL IV DATA: Not applicable SIGNED BY: RT Eloy(Daria) January 08, 2025 9:46 AM [facility] 12-16-2024 Telephone encounter Note Patient returned call and went over results, notes from Marilyn JENSEN with understanding. Assisted with transfer to breast center chief crew scheduler to get appt set up for diag mamm and ultrasound. [facility] 12-16-2024 Miscellaneous Notes Patient returned call and went over results, notes from Marilyn JENSEN with understanding. Assisted with transfer to breast [place] chief crew scheduler to get appt set up for diag mamm and ultrasound. Asymmetry in left breast. Needs additional views. Marilyn Hair PA-C documented in this encounter [facility] 12-16-2024 Telephone encounter Note Asymmetry in left breast. Needs additional views. Marilyn Hair PA-C [facility] 12-13-2024 History of Present illness Narrative Radiology Service Progress Note PATIENT NAME: Liam King DATE OF SERVICE: December 13, 2024 TIME: 10:34 AM PATIENT IDENTITY VERIFICATION COMPLETED USING TWO (2) IDENTIFIERS: Name and Date of confirmed by patient verbally. FALL SCREENING: Has the patient had 2 falls in the last year or 1 fall with injury or currently using an Ambulatory Assistive Device (Walker, Cane, Wheelchair, Crutches, etc.)? No PATIENT GENDER DATA: Assigned female at . status: : No status: NO. PATIENT RELEVANT IMPLANT DATA REVIEWED: Not Applicable PATIENT PRESENTS WITH AN IMPLANTABLE OR ATTACHED INSPECTORS AND REGULATORY OFFICERS: No RADIOLOGY DEPARTMENT: Mammography PERIPHERAL IV DATA: Not applicable SIGNED BY: Suzanne Veras December 13, 2024 10:34 AM documented in this encounter [facility] 12-13-2024 Note HNO ID: [id number] Author: DENISE BROWN Mammo Tech Service: ? Author Type: Header Dock Type: Progress Notes Filed: 12/13/2024 10:34 Note Text: Radiology Service Progress Note PATIENT NAME: Liam King DATE OF SERVICE: December 13, 2024 TIME: 10:34 AM PATIENT IDENTITY VERIFICATION COMPLETED USING TWO (2) IDENTIFIERS: Name and Date of confirmed by patient verbally. FALL SCREENING: Has the patient had 2 falls in the last year or 1 fall with injury or currently using an Ambulatory Assistive Device (Walker, Cane, Wheelchair, Crutches, etc.)? No PATIENT GENDER DATA: Assigned female at . status: : No status: NO. PATIENT RELEVANT IMPLANT DATA REVIEWED: Not Applicable PATIENT PRESENTS WITH AN IMPLANTABLE OR ATTACHED INSPECTORS AND REGULATORY OFFICERS: No RADIOLOGY DEPARTMENT: Mammography PERIPHERAL IV DATA: Not applicable SIGNED BY: Suzanne Veras December 13, 2024 10:34 AM [facility] 12-13-2024 Telephone encounter Note Order faxed. Mary Villalpando RN [facility] 12-13-2024 Miscellaneous Notes Order faxed. Mary Villalpando RN Please fax PFPT consult to [facility] Thank you, Carlene Saleem APRN.DIVER HELPER documented in this encounter [facility] 12-13-2024 Telephone encounter Note Please fax PFPT consult to [facility] Thank you, Carlene Saleem APRN.DIVER HELPER [facility] 12-13-2024 History of Present illness Narrative Type Caster offered: Patient declines. Nelsy is a 74 year old who presents for an annual gynecologic exam without complaints. Postmenopausal: Yes HRT use: No. Still get period: No Menopause symptoms: None control frequency: postmenopausal HPV vaccine: Unsure; Last pap smear: 10/28/2023 History of abnormal pap: Yes, 2023 ASCUS, Thomas CIN2, LEEP 2023 HSIL Bothersome pelvic pain: No Last mammogram: 2023 abnormal History of abnormal mammogram: Yes OB History No obstetric history on file. 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 Repeat bone density in 2 years Arthritis of both knees 04/29/2020 Sever on right and moderate on left of medial joint spaces. ASCUS with positive high risk HPV cervical 2023 Dyslipidemia 01/10/2024 Dysplasia of cervix, high grade MARY 2 Elevated fasting glucose 07/08/2019 Family history of thyroid disease 10/25/2016 Hemorrhage of rectum and anus 08/03/2005 Hypertension, essential 01/16/2022 Low serum vitamin B12 07/25/2023 Medicare annual wellness visit, subsequent 10/25/2016 last done: 10/25/2016 Pain in left knee 05/06/2015 Paresthesia 07/25/2023 Hands and Feet: 06/2023 B12 low so started on B12. If no improvement may need NCS/EMG's Renal cyst 11/26/2021 Varicose veins 05/06/2015 PAST SURGICAL HISTORY Procedure Laterality Date CERVIX UTERI CONIZA LP ELCTRO EXCI 10/2023 COLONOSCOPY 2005 COLONOSCOPY SCREENING 12/2022 IMMUNOCHEMICAL FECAL OCCULT BLOOD TEST 11/08/2016 negative PAST SURGICAL HISTORY OF 1977 varicose veins stripped bilateral. PAST SURGICAL HISTORY OF sclerotherapy several times PAST SURGICAL HISTORY OF 2007 anterior vaginal repair prolapse TOTAL KNEE REPLACEMENT Left 12/2023 FAMILY HISTORY Problem Relation Age of Onset Cancer Mother smoker Thyroid Mother Alzheimer's Disease Father Heart disease Sister Stroke Maternal Grandfather Diabetes Paternal Grandmother SOCIAL HISTORY Social History Tobacco Use Smoking status: Never Smokeless tobacco: Never Vaping Use Vaping status: Never Used Substance Use Topics Alcohol use: Not Currently Comment: ocassional wine Drug use: Never REVIEW OF SYSTEMS Abdomen: No abdominal pain, nausea, vomiting, diarrhea, or constipation. No bloating, early satiety, indigestion, or increased flatulence. Bladder: No dysuria, gross hematuria, urinary frequency, urinary urgency, or incontinence Breast: No breast lumps, nipple d/c, overlying skin changes, redness or skin retraction Allergies and current medication updated:Yes SENSITIVE EXAM: The sensitive examination was discussed with the Patient or Patient's Authorized Compensation Associate. As applicable, any other physician, advance practice provider, medical student, or other health professional student that will be observing or involved in the sensitive examination for educational or training purposes was discussed with the Patient or Authorized Compensation Associate. The Patient or Authorized Compensation Associate has agreed to proceed with the sensitive examination. (Sensitive examination includes inspection and/or palpation of the breasts, pelvis, prostate and anorectal regions). EXAM: BP 142/82 Ht 5' 0 (1.52m) Wt 126 lb (57.2kg) LMP 07/28/2019 BMI 24.61 kg/(m^2). GENERAL: pleasant, female in no apparent distress HEENT: Normocephalic, atraumatic, mucus membranes moist, and no lesions NECK: Supple, full range of motion, no adenopathy, and thyroid normal DERMATOLOGY: Normal, without lesions, non-icteric, and non-hirsute BREAST: soft, non-tender, symmetric, no dominant mass, normal nipple-areolar complex, no lymphadenopathy, and no nipple discharge CHEST: Normal inspiratory effort ABDOMEN: soft, non-tender, and no masses PELVIC: external genitalia normal, normal Bartholin's glands, urethra, [place]'s glands, no vulvar lesions, + smooth pink nodule noted to anterior cervix, + uterovaginal prolapse, 2nd degree, physiologic discharge present, normal appearing perineal body and perianal region BIMANUAL: uterus normal size, shape and consistency, no adnexal masses, and non-tender RECTOVAGINAL: deferred. NEURO: alert and oriented x3,exam grossly non-focal EXTREMITIES: normal ASSESSMENT/PLAN: 1) Health maintenance: Pap done with HPV. Mammogram ordered and encouraged Calcium/Vitamin D supplementation information provided. Colon cancer screening: up to date with screening TSH/lipids/glucose: followed by PCP BMD: ordered by PCP, has osteoporosis 2) Follow up one year or sooner as needed Uterovaginal prolapse, unspecified - ICD9: 618.4, ICD10: N81.4 - CONSULT TO PHYSICAL THERAPY Carlene Saleem APRN.CNP documented in this encounter [facility] 12-13-2024 Note HNO ID: [id number] Author: CARLENE SALEEM APRN.CNP Service: ? Author Type: Nurse Practitioner Type: Progress Notes Filed: 12/13/2024 08:41 Note Text: Type Caster offered: Patient declines. Nelsy is a 74 year old who presents for an annual gynecologic exam without complaints. Postmenopausal: Yes HRT use: No. Still get period: No Menopause symptoms: None control frequency: postmenopausal HPV vaccine: Unsure; Last pap smear: 10/28/2023 History of abnormal pap: Yes, 2023 ASCUS, Thomas CIN2, LEEP 2023 HSIL Bothersome pelvic pain: No Last mammogram: 2023 abnormal History of abnormal mammogram: Yes OB History No obstetric history on file. 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 Repeat bone density in 2 years Arthritis of both knees 04/29/2020 Sever on right and moderate on left of medial joint spaces. ASCUS with positive high risk HPV cervical 2023 Dyslipidemia 01/10/2024 Dysplasia of cervix, high grade MARY 2 Elevated fasting glucose 07/08/2019 Family history of thyroid disease 10/25/2016 Hemorrhage of rectum and anus 08/03/2005 Hypertension, essential 01/16/2022 Low serum vitamin B12 07/25/2023 Medicare annual wellness visit, subsequent 10/25/2016 last done: 10/25/2016 Pain in left knee 05/06/2015 Paresthesia 07/25/2023 Hands and Feet: 06/2023 B12 low so started on B12. If no improvement may need NCS/EMG's Renal cyst 11/26/2021 Varicose veins 05/06/2015 PAST SURGICAL HISTORY Procedure Laterality Date CERVIX UTERI CONIZA LP ELCTRO EXCI 10/2023 COLONOSCOPY 2006 COLONOSCOPY SCREENING 12/2022 IMMUNOCHEMICAL FECAL OCCULT BLOOD TEST 11/08/2016 negative PAST SURGICAL HISTORY OF 1977 varicose veins stripped bilateral. PAST SURGICAL HISTORY OF sclerotherapy several times PAST SURGICAL HISTORY OF 2007 anterior vaginal repair prolapse TOTAL KNEE REPLACEMENT Left 12/2023 FAMILY HISTORY Problem Relation Age of Onset Cancer Mother smoker Thyroid Mother Alzheimer's Disease Father Heart disease Sister Stroke Maternal Grandfather Diabetes Paternal Grandmother SOCIAL HISTORY Social History Tobacco Use Smoking status: Never Smokeless tobacco: Never Vaping Use Vaping status: Never Used Substance Use Topics Alcohol use: Not Currently Comment: ocassional wine Drug use: Never REVIEW OF SYSTEMS Abdomen: No abdominal pain, nausea, vomiting, diarrhea, or constipation. No bloating, early satiety, indigestion, or increased flatulence. Bladder: No dysuria, gross hematuria, urinary frequency, urinary urgency, or incontinence Breast: No breast lumps, nipple d/c, overlying skin changes, redness or skin retraction Allergies and current medication updated:Yes SENSITIVE EXAM: The sensitive examination was discussed with the Patient or Patient's Authorized Compensation Associate. As applicable, any other physician, advance practice provider, medical student, or other health professional student that will be observing or involved in the sensitive examination for educational or training purposes was discussed with the Patient or Authorized Compensation Associate. The Patient or Authorized Compensation Associate has agreed to proceed with the sensitive examination. (Sensitive examination includes inspection and/or palpation of the breasts, pelvis, prostate and anorectal regions). EXAM: BP 142/82 Ht 5' 0 (1.52m) Wt 126 lb (57.2kg) LMP 07/28/2019 BMI 24.61 kg/(m2). GENERAL: pleasant, female in no apparent distress HEENT: Normocephalic, atraumatic, mucus membranes moist, and no lesions NECK: Supple, full range of motion, no adenopathy, and thyroid normal DERMATOLOGY: Normal, without lesions, non-icteric, and non-hirsute BREAST: soft, non-tender, symmetric, no dominant mass, normal nipple-areolar complex, no lymphadenopathy, and no nipple discharge CHEST: Normal inspiratory effort ABDOMEN: soft, non-tender, and no masses PELVIC: external genitalia normal, normal [place]'s glands, urethra, [place]'s glands, no vulvar lesions, + smooth pink nodule noted to anterior cervix, + uterovaginal prolapse, 2nd degree, physiologic discharge present, normal appearing perineal body and perianal region BIMANUAL: uterus normal size, shape and consistency, no adnexal masses, and non-tender RECTOVAGINAL: deferred. NEURO: alert and oriented x3,exam grossly non-focal EXTREMITIES: normal ASSESSMENT/PLAN: 1) Health maintenance: Pap done with HPV. Mammogram ordered and encouraged Calcium/Vitamin D supplementation information provided. Colon cancer screening: up to date with screening TSH/l (more content not included)... [facility] 09-12-2024 History of Present illness Narrative Ortho Nurse - Established Patient Intake Room#: Room 3---Patient is here today for concerns with an indent on the suture site. She has complaints of itching. Also reports of tingling and numbness on the outside of the knee. History of LTKA by [facility] 01/17/24. No recent falls or injuries. No new or worsening pain. She would just like an evaluation to make sure everything is okay. Pain level 2/10 Denies nicotine. Date: 09/12/2024 8:53 AM Patient: Liam King MR#: [id number] : 1950 Age: 74 y.o. Referring Physician: Self, Self Insurance: Payor: MEDICARE / Plan: MEDICARE A AND B / Product Type: *No Product type* / Chief Complaint Patient presents with Left Knee - Pain There were no vitals taken for this visit. Pain 1. Are you having pain? 2. On a scale from 1-10: Recent Labs No results found for: CRP No results found for: SEDRATE Lab Results Component Value Date WBC 5.5 01/04/2024 HGB 15.4 01/04/2024 HCT 45.9 01/04/2024 PLATELET 209 01/04/2024 MCV 92.7 01/04/2024 History Past Medical History: Diagnosis Date Arthritis Essential hypertension, benign GERD (gastroesophageal reflux disease) Past Surgical History: Procedure Laterality Date ARTHROPLASTY KNEE TOTAL Left 01/17/2024 Laterality: Left; Surgeon: Rosalinda Barajas MD; Location: [facility] OR EXENTERATION PELVIC/GYNECOLOGIC ANTERIOR 2007 at [place] COLONOSCOPY DIAGNOSTIC x 2 Family History: Her family history includes Anesth Problems in her mother; Dementia in her father; Lung Cancer in her mother. Social History: Her reports that she has never smoked. She has never used smokeless tobacco. She reports current alcohol use. She reports that she does not use drugs. Outpatient Medications Prior to Visit Medication Sig Dispense Refill Acetaminophen 325 MG tablet Take 2 tablets by mouth every 4 hours as needed for Mild Pain. Do not exceed 4000mg of Tylenol in 24 hour period. 50 tablet 1 Amoxicillin 500 MG capsule Take 4 capsules 1 hour before procedure 8 capsule [address] Asp[address] tablet Take 1 tablet by mouth 2 times daily. This medication is for blood clot prevention. Take with food. 60 tablet 0 Celecoxib 200 MG capsule Take 1 capsule by mouth 2 times daily. Take with food. 84 capsule 0 Docusate 100 MG capsule Take 1 capsule by mouth 2 times daily. Hold for loose stools. 60 capsule 0 hydroCODone-acetaminophen 5-325 MG tablet Take 1-2 tablets by mouth every 6 hours as needed for up to 7 days. Do not take over 4000mg acetaminophen daily. 30 tablet 0 Lisinopril 10 MG tablet Take 1 tablet by mouth daily. naloxone 4 MG/0.1ML 1 spray by Nasal route once for 1 dose. Blair into the nose as directed. Call 911. If no response in 2 minutes use a new nasal spray in other nostril. Repeat until help arrives. 1 Each 0 omeprazole [address] capsule Take 1 capsule by mouth daily. 30 capsule 0 Ondansetron 4 MG tablet Take 1 tablet by mouth every 8 hours as needed for Nausea / Vomiting. 6 tablet 0 oxyCODONE 5 MG tablet Take 1-2 tabs every 4-6 hours as needed for severe pain. Wean as tolerated 30 tablet 0 therapeutic multivitamin-minerals tablet Take 1 tablet by mouth at bedtime. 30 tablet 0 No facility-administered medications prior to visit. Allergies: She is allergic to demerol hcl [meperidine] and sodium pentobarbital [pentobarbital]. HPI: Patient is here to question some things about her scarring, an indent and some associated symptoms. She states she hasn't had any issues with the knee itself but was concerned with how it has healed. She does have some pain at night. KA in December of 2023. PHYSICAL EXAM: This is an alert, oriented, and age-appropriate female. She is in no distress. Pleasant and cooperative. EXTREMITIES: The lower extremities have no gross deformities. Normal stability. Skin Intact. 5/5 motor. Intact sensation. Normal neurovascular status. Normal coordination. Range of motion upon exam today is 0-120 a little tight with extension and flexion. Stable examination to varus and valgus stress. Full motion of hip. No pain. No impingement. No instability. Contralateral leg has normal alignment. Full motion. No pain. No impingement. No instability. IMAGING: Plain film radiographs were reviewed. She has a total knee arthroplasty in good position and alignment. No evidence of prosthetic implant loosening or migration. IMPRESSION: Stable status post total knee arthroplasty, doing well. PLAN: I feel the symptoms Liam is having is normal in this stage of recovery. I have recommended she begin stretching or incorporating yoga for flexibility. I answered all her questions regarding the incision and some of symptoms that are associated with the healing process including numbness and itching. She should return at the one year chris unless any new symptoms arise. I have reviewed the findings of my clinical staff below and agree with their assessment. Vitals: 09/12/24 0853 Temp: 97.7 degrees F (36.5 degrees C) Weight: 56.7 kg (125 lb) Height: 1.549 m (5' 1) Pain Recent Labs No results found for: CRP No results found for: SEDRATE Lab Results Component Value Date WBC 5.5 01/04/2024 HGB 15.4 01/04/2024 HCT 45.9 01/04/2024 PLATELET 209 01/04/2024 MCV 92.7 01/04/2024 Past Medical History: Diagnosis Date Arthritis Essential hypertension, benign GERD (gastroesophageal reflux disease) Past Surgical History: Procedure Laterality Date ARTHROPLASTY KNEE TOTAL Left 01/17/2024 Laterality: Left; Surgeon: Rosalinda Barajas MD; Location: [facility] OR EXENTERATION PELVIC/GYNECOLOGIC ANTERIOR 2007 at [place] COLONOSCOPY DIAGNOSTIC x 2 Family History Problem Relation Age of Onset Anesth Problems Mother intolerant of sodium pentathol and demerol Lung Cancer Mother Dementia Father Social History Socioeconomic History Marital status: Tobacco Use Smoking status: Never Smokeless tobacco: Never Vaping Use Vaping status: Never Used Substance and Sexual Activity Alcohol use: Yes Comment: rare Drug use: Never Social Drivers of Health Financial Resource Strain: Low Risk (07/16/2024) Received from [facility] Overall Financial Resource Strain (CARDIA) Difficulty of Paying Living Expenses: Not hard at all Food Insecurity: No Food Insecurity (07/16/2024) Received from [facility] Hunger Vital Sign Worried About Running Out of Food in the Last Year: Never true Ran Out of Food in the Last Year: Never true Transportation Needs: No Transportation Needs (07/16/2024) Received from [facility] PRAPARE - Transportation Lack of Transportation (Medical): No Lack of Transportation (Non-Medical): No Physical Activity: Sufficiently Active (07/16/2024) Received from [facility] Exercise Vital Sign Days of Exercise per Week: 6 days Minutes of Exercise per Session: 30 min Stress: No Stress Concern Present (07/16/2024) Received from [facility] [place] [employer] - Occupational Stress Questionnaire Feeling of Stress : Only a little Social Connections: Socially Integrated (07/16/2024) Received from [facility] Social Connection and Isolation Panel [NHANES] Frequency of Communication with Friends and Family: More than three times a week Frequency of Social Gatherings with Friends and Family: Once a week Attends Bahai Services: More than 4 times per year Active Member of Clubs or Organizations: Yes Attends Club or Organization Meetings: 1 to 4 times per year Marital Status: Personal Safety: Not At Risk (06/14/2018) [facility] Humiliation, Afraid, Rape, and Kick questionnaire Fear of Current or Ex-Partner: No Emotionally Abused: No Physically Abused: No Sexually Abused: No Housing Stability: Unknown (07/16/2024) Received from [facility] Housing Stability Vital Sign Unable to Pay for Housing in the Last Year: No Current Outpatient Medications: Aspirin [address] tablet, Take 1 tablet by mouth 2 times daily. This medication is for blood clot prevention. Take with food., Disp: 60 tablet, Rfl: 0 Lisinopril 10 MG tablet, Take 1 tablet by mouth daily., Disp: , Rfl: Acetaminophen 325 MG tablet, Take 2 tablets by mouth every 4 hours as needed for Mild Pain. Do not exceed 4000mg of Tylenol in 24 hour period. (Patient not taking: Reported on 09/12/2024), Disp: 50 tablet, Rfl: 1 Amoxicillin 500 MG capsule, Take 4 capsules 1 hour before procedure (Patient not taking: Reported on 09/12/2024), Disp: 8 capsule, Rfl: 1 Celecoxib 200 MG capsule, Take 1 capsule by mouth 2 times daily. Take with food., Disp: 84 capsule, Rfl: 0 Cholecalciferol (D3 VITAMIN PO), Take by mouth., Disp: , Rfl: Docusate 100 MG capsule, Take 1 capsule by mouth 2 times daily. Hold for loose stools. (Patient not taking: Reported on 09/12/2024), Disp: 60 capsule, Rfl: 0 hydroCODone-acetaminophen 5-325 MG tablet, Take 1-2 tablets by mouth every 6 hours as needed for up to 7 days. Do not take over 4000mg acetaminophen daily., Disp: 30 tablet, Rfl: 0 naloxone 4 MG/0.1ML, 1 spray by Nasal route once for 1 dose. Blair into the nose as directed. Call 911. If no response in 2 minutes use a new nasal spray in other nostril. Repeat until help arrives., Disp: 1 Each, Rfl: 0 omeprazole [address] capsule, Take 1 capsule by mouth daily. (Patient not taking: Reported on 09/12/2024), Disp: 30 capsule, Rfl: 0 Ondansetron 4 MG tablet, Take 1 tablet by mouth every 8 hours as needed for Nausea / Vomiting. (Patient not taking: Reported on 09/12/2024), Disp: 6 tablet, Rfl: 0 oxyCODONE 5 MG tablet, Take 1-2 tabs every 4-6 hours as needed for severe pain. Wean as tolerated, Disp: 30 tablet, Rfl: 0 therapeutic multivitamin-minerals tablet, Take 1 tablet by mouth at bedtime. (Patient not taking: Reported on 09/12/2024), Disp: 30 tablet, Rfl: 0 Allergies Allergen Reactions Demerol Hcl [Meperidine] Sodium Pentobarbital [Pentobarbital] documented in this encounter [facility] 09-02-2024 Telephone encounter Note Pt reports she picked up lisinopril 5 mg today, and instructions are wrong: reads: take 1 tab daily with 10 mg tab to equal 15 mg. Reports provider told her to take 5 mg daily. Advised pt I would call pharmacy and clarify the Rx's and instructions. Phoned [facility] and told them this. Pharmacy states they never received the discontinue on the lisinopril 5 mg that states take with 10 mg tab to equal 15 mg. Advised pharmacist this one was discontinued on 08/29/24 when new one was sent and patient should be taking the 5 mg daily only. Pharmacist agreeable. [facility] 09-02-2024 Miscellaneous Notes Pt reports she picked up lisinopril 5 mg today, and instructions are wrong: reads: take 1 tab daily with 10 mg tab to equal 15 mg. Reports provider told her to take 5 mg daily. Advised pt I would call pharmacy and clarify the Rx's and instructions. Phoned [facility] and told them this. Pharmacy states they never received the discontinue on the lisinopril 5 mg that states take with 10 mg tab to equal 15 mg. Advised pharmacist this one was discontinued on 08/29/24 when new one was sent and patient should be taking the 5 mg daily only. Pharmacist agreeable. documented in this encounter [facility] 08-29-2024 Note Addended by: RAFAELA WASHINGTON on: 08/29/2024 09:42 AM Modules accepted: Orders [facility] 08-29-2024 Miscellaneous Notes Addended by: RAFAELA WASHINGTON on: 08/29/2024 09:42 AM Modules accepted: Orders Addended by: RAFAELA WASHINGTON on: 08/29/2024 09:29 AM Modules accepted: Orders documented in this encounter [facility] 08-29-2024 Note Addended by: RAFAELA WASHINGTON on: 08/29/2024 09:29 AM Modules accepted: Orders [facility] 08-29-2024 Note HNO ID: [id number] Author: RAFAELA WASHINGTON APRN.MARK Service: ? Author Type: Nurse Practitioner Type: Progress Notes Filed: 08/29/2024 09:27 Note Text: Chief Complaint Patient presents with: Follow Up HPI Liam King is a 74 year old female who presents here today for Above Complaints.. Patient presents for follow up for BP. Patient reports she is doing well and home BP's are well controlled. Past medical history, appointments, medications, allergies reviewed. Previous Medical History PAST MEDICAL HISTORY Diagnosis Date Age-related osteoporosis without current pathological fracture 01/06/2021 patient declines treatment beyond calcium and vit d as of 01/06/21. Repeat bone density in 2 years Arthritis of both knees 04/29/2020 Sever on right and moderate on left of medial joint spaces. Dyslipidemia 01/10/2024 Elevated fasting glucose 07/08/2019 Family history of thyroid disease 10/25/2016 Hemorrhage of rectum and anus 08/03/2005 Hypertension, essential 01/16/2022 Low serum vitamin B12 07/25/2023 Medicare annual wellness visit, subsequent 10/25/2016 last done: 10/25/2016 Pain in left knee 05/06/2015 Paresthesia 07/25/2023 Hands and Feet: 06/2023 B12 low so started on B12. If no improvement may need NCS/EMG's Renal cyst 11/26/2021 Varicose veins 05/06/2015 Previous Surgical History PAST SURGICAL HISTORY Procedure Laterality Date COLONOSCOPY 2005 COLONOSCOPY SCREENING 12/2022 FECAL OCCULT BLOOD TEST 11/08/2016 negative PAST SURGICAL HISTORY OF 1977 varicose veins stripped bilateral. PAST SURGICAL HISTORY OF sclerotherapy several times PAST SURGICAL HISTORY OF 2007 anterior vaginal repair prolapse TOTAL KNEE REPLACEMENT Left 12/2023 Family History FAMILY HISTORY Problem Relation Age of Onset Cancer Mother smoker Thyroid Mother Alzheimer's Disease Father Heart disease Sister Stroke Maternal Grandfather Diabetes Paternal Grandmother Patient Allergies ALLERGIES No Known Allergies Current Medications Current Outpatient Medications on File Prior to Visit Medication Sig omeprazole (PRILOSEC) 40 mg capsule Take 1 capsule by mouth once daily. lisinopril (ZESTRIL) 5 mg tablet Take 1 tablet by mouth once daily. Take with the 10mg for total dose of 15mg daily celecoxib (CELEBREX) 200 mg capsule Take 1 capsule by mouth once daily. cyanocobalamin (VITAMIN B-12) 1,000 mcg tab Take 1,000 mcg by mouth once daily. Cholecalciferol, Vitamin D3, 1,000 unit cap Take 2,000 Units by mouth once daily. No current facility-administered medications on file prior to visit. Social History Social History Tobacco Use Smoking status: Never Smokeless tobacco: Never Vaping Use Vaping status: Never Used Substance Use Topics Alcohol use: Not Currently Comment: ocassional wine Drug use: Never Review of Symptoms REVIEW OF SYSTEMS SEE HPI EXAM: BP 147/78 Pulse 81 Wt 57 kg (125 lb 10.6 oz) BMI 24.14 kg/m? General Appearance: Well appearing, alert, in no acute distress, well-hydrated, well nourished. Lungs: Lungs clear to auscultation. No wheezing, rhonchi, rales.. Heart: RRR without murmur, gallop, or rubs. No ectopy. Health Maintenance List BP Controlled (<130/80) Never done Bone Density Screening due on 12/21/2022 Advance Directive Discussion due on 05/29/2024 Mammogram Screening due on 06/22/2024 Cervical Cancer Screening due on 07/10/2024 Influenza Vaccine(1) due on 11/25/2024 DTaP,Tdap,Td Vaccine(2 - Td or Tdap) due on 12/01/2024 Depression Screening due on 01/09/2025 Anxiety Screening due on 01/09/2025 Annual PCP Team Chronic Disease Visit due on 07/17/2025 Diabetes Screening due on 07/12/2027 Lipid Screening due on 07/12/2029 Hepatitis C Screening Completed Colorectal Cancer Screening Discontinued RSV Vaccine Discontinued Shingrix Vaccine Discontinued Covid-19 Vaccine Discontinued Pneumococcal Vaccine: 50+ Discontinued ASSESSMENT/PLAN: 1. Hypertension, essential - ICD9: 401.9, ICD10: I10 - Controlled - Continue current medications - Recommend home blood pressure monitoring, to bring results to next visit - Encouraged sodium restriction, DASH or Mediterranean diet - Recommend regular aerobic exercise - Discussed need for and benefit of weight loss. BMI 24.14 kg/(m2) - LISINOPRIL 5 MG TABLET Rafaela Washington APRN.[facility] 08-29-2024 History of Present illness Narrative Chief Complaint Patient presents with: Follow Up HPI Liam King is a 74 year old female who presents here today for Above Complaints.. Patient presents for follow up for BP. Patient reports she is doing well and home BP's are well controlled. Past medical history, appointments, medications, allergies reviewed. Previous Medical History PAST MEDICAL HISTORY Diagnosis Date Age-related osteoporosis without current pathological fracture 01/06/2021 patient declines treatment beyond calcium and vit d as of 01/06/21. Repeat bone density in 2 years Arthritis of both knees 04/29/2020 Sever on right and moderate on left of medial joint spaces. Dyslipidemia 01/10/2024 Elevated fasting glucose 07/08/2019 Family history of thyroid disease 10/25/2016 Hemorrhage of rectum and anus 08/03/2005 Hypertension, essential 01/16/2022 Low serum vitamin B12 07/25/2023 Medicare annual wellness visit, subsequent 10/25/2016 last done: 10/25/2016 Pain in left knee 05/06/2015 Paresthesia 07/25/2023 Hands and Feet: 06/2023 B12 low so started on B12. If no improvement may need NCS/EMG's Renal cyst 11/26/2021 Varicose veins 05/06/2015 Previous Surgical History PAST SURGICAL HISTORY Procedure Laterality Date COLONOSCOPY 2005 COLONOSCOPY SCREENING 12/2022 FECAL OCCULT BLOOD TEST 11/08/2016 negative PAST SURGICAL HISTORY OF 1977 varicose veins stripped bilateral. PAST SURGICAL HISTORY OF sclerotherapy several times PAST SURGICAL HISTORY OF 2007 anterior vaginal repair prolapse TOTAL KNEE REPLACEMENT Left 12/2023 Family History FAMILY HISTORY Problem Relation Age of Onset Cancer Mother smoker Thyroid Mother Alzheimer's Disease Father Heart disease Sister Stroke Maternal Grandfather Diabetes Paternal Grandmother Patient Allergies ALLERGIES No Known Allergies Current Medications Current Outpatient Medications on File Prior to Visit Medication Sig omeprazole (PRILOSEC) 40 mg capsule Take 1 capsule by mouth once daily. lisinopril (ZESTRIL) 5 mg tablet Take 1 tablet by mouth once daily. Take with the 10mg for total dose of 15mg daily celecoxib (CELEBREX) 200 mg capsule Take 1 capsule by mouth once daily. cyanocobalamin (VITAMIN B-12) 1,000 mcg tab Take 1,000 mcg by mouth once daily. Cholecalciferol, Vitamin D3, 1,000 unit cap Take 2,000 Units by mouth once daily. No current facility-administered medications on file prior to visit. Social History Social History Tobacco Use Smoking status: Never Smokeless tobacco: Never Vaping Use Vaping status: Never Used Substance Use Topics Alcohol use: Not Currently Comment: ocassional wine Drug use: Never Review of Symptoms REVIEW OF SYSTEMS SEE HPI EXAM: BP 147/78 Pulse 81 Wt 57 kg (125 lb 10.6 oz) BMI 24.14 kg/m General Appearance: Well appearing, alert, in no acute distress, well-hydrated, well nourished. Lungs: Lungs clear to auscultation. No wheezing, rhonchi, rales.. Heart: RRR without murmur, gallop, or rubs. No ectopy. Health Maintenance List BP Controlled (<130/80) Never done Bone Density Screening due on 12/21/2022 Advance Directive Discussion due on 05/29/2024 Mammogram Screening due on 06/22/2024 Cervical Cancer Screening due on 07/10/2024 Influenza Vaccine(1) due on 11/25/2024 DTaP,Tdap,Td Vaccine(2 - Td or Tdap) due on 12/01/2024 Depression Screening due on 01/09/2025 Anxiety Screening due on 01/09/2025 Annual PCP Team Chronic Disease Visit due on 07/17/2025 Diabetes Screening due on 07/12/2027 Lipid Screening due on 07/12/2029 Hepatitis C Screening Completed Colorectal Cancer Screening Discontinued RSV Vaccine Discontinued Shingrix Vaccine Discontinued Covid-19 Vaccine Discontinued Pneumococcal Vaccine: 50+ Discontinued ASSESSMENT/PLAN: 1. Hypertension, essential - ICD9: 401.9, ICD10: I10 - Controlled - Continue current medications - Recommend home blood pressure monitoring, to bring results to next visit - Encouraged sodium restriction, DASH or Mediterranean diet - Recommend regular aerobic exercise - Discussed need for and benefit of weight loss. BMI 24.14 kg/(m^2) - LISINOPRIL 5 MG TABLET Rafaela Washington APRN.[employer] documented in this encounter [facility] 07-17-2024 Note HNO ID: [id number] Author: MARILYN HAIR PA-C Service: ? Author Type: Physician Core Assembly Supervisor Type: Progress Notes Filed: 07/17/2024 14:08 Note Text: Chief Complaint Patient presents with: Follow Up: 6 months HPI Liam King is a 73 year old female who presents here today for Chronic Medical Conditions.. Patient with hx as below. Patient is only taking 5mg of lisinopril. Isn't sure how she got off of the 10mg.. States that home readings are around 130-136/80-85. Concerns: Acid reflux for the past year. Doesn't take anything for this. Intermittent. 2-3 times a day. Magnesium? Tingling at night. Not every night. Past medical history, appointments, medications, allergies reviewed. Previous Medical History PAST MEDICAL HISTORY Diagnosis Date Age-related osteoporosis without current pathological fracture 01/06/2021 patient declines treatment beyond calcium and vit d as of 01/06/21. Repeat bone density in 2 years Arthritis of both knees 04/29/2020 Sever on right and moderate on left of medial joint spaces. Dyslipidemia 01/10/2024 Elevated fasting glucose 07/08/2019 Family history of thyroid disease 10/25/2016 Hemorrhage of rectum and anus 08/03/2005 Hypertension, essential 01/16/2022 Low serum vitamin B12 07/25/2023 Medicare annual wellness visit, subsequent 10/25/2016 last done: 10/25/2016 Pain in left knee 05/06/2015 Paresthesia 07/25/2023 Hands and Feet: 06/2023 B12 low so started on B12. If no improvement may need NCS/EMG's Renal cyst 11/26/2021 Varicose veins 05/06/2015 Previous Surgical History PAST SURGICAL HISTORY Procedure Laterality Date COLONOSCOPY 2005 COLONOSCOPY SCREENING 12/2022 FECAL OCCULT BLOOD TEST 11/08/2016 negative PAST SURGICAL HISTORY OF 1977 varicose veins stripped bilateral. PAST SURGICAL HISTORY OF sclerotherapy several times PAST SURGICAL HISTORY OF 2007 anterior vaginal repair prolapse TOTAL KNEE REPLACEMENT Left 12/2023 Family History FAMILY HISTORY Problem Relation Age of Onset Cancer Mother smoker Thyroid Mother Alzheimer's Disease Father Heart disease Sister Stroke Maternal Grandfather Diabetes Paternal Grandmother Patient Allergies ALLERGIES No Known Allergies Current Medications Current Outpatient Medications on File Prior to Visit Medication Sig lisinopril (ZESTRIL) 10 mg tablet Take 1 tablet by mouth once daily. lisinopril (ZESTRIL) 5 mg tablet Take 1 tablet by mouth once daily. Take with the 10mg for total dose of 15mg daily celecoxib (CELEBREX) 200 mg capsule Take 1 capsule by mouth once daily. cyanocobalamin (VITAMIN B-12) 1,000 mcg tab Take 1,000 mcg by mouth once daily. Cholecalciferol, Vitamin D3, 1,000 unit cap Take 2,000 Units by mouth once daily. No current facility-administered medications on file prior to visit. Social History Social History Tobacco Use Smoking status: Never Smokeless tobacco: Never Vaping Use Vaping status: Never Used Substance Use Topics Alcohol use: Yes Comment: ocassional wine Drug use: Never Review of Symptoms REVIEW OF SYSTEMS GENERAL: No weight loss, malaise or fevers NECK: Negative for lumps, goiter, pain and significant neck swelling RESPIRATORY: Negative for cough, hemoptysis, wheezing, COPD, dyspnea or shortness of breath CARDIOVASCULAR: Negative for chest pain, leg swelling, hypertension, CHF or palpitations NEURO: No history of headaches, syncope, paralysis, seizures or tremors EXAM: BP 138/80 Pulse 90 Temp 37.2 ?C (98.9 ?F) Resp 14 Wt 57.2 kg (126 lb) SpO2 96% BMI 24.20 kg/m? General Appearance: Well appearing, alert, in no acute distress, well-hydrated, well nourished.. Neck: Supple, no adenopathy; thyroid symmetric, normal size, no bruits. Lungs: Lungs clear to auscultation. No wheezing, rhonchi, rales.. Heart: RRR without murmur, gallop, or rubs. No ectopy. Extremities: No deformities, edema, skin discoloration, clubbing or cyanosis. Good capillary refill. . Peripheral Pulses: Normal. Health Maintenance List BP Controlled (<130/80) Never done Bone Density Screening due on 12/21/2022 Advance Directive Discussion due on 05/29/2024 Mammogram Screening due on 06/22/2024 Cervical Cancer Screening due on 07/10/2024 Influenza Vaccine(1) due on 11/25/2024 DTaP,Tdap,Td Vaccine(2 - Td or Tdap) due on 12/01/2024 Depression Screening due on 01/09/2025 Anxiety Screening due on 01/09/2025 Annual PCP Team Chronic Disease Visit due on 07/17/2025 Diabetes Screening due on 07/12/2027 Lipid Screening due on 07/12/2029 Hepatitis C Screening Completed Colorectal Cancer Screening Discontinued RSV Vaccine Discontinued Shingrix Vaccine Discontinued Covid-19 Vaccine Discontinued Pneumococcal Vaccine: 50+ Discontinued Data reviewed Latest Ref Rng 07/12/2024 WBC 3.70 - 11.00 k/uL 5.62 RBC 3.90 - 5.20 m/uL 5.16 Hemoglobin 11.5 - 15.5 g/dL 15.5 Hematocrit 36.0 - 46.0 % (more content not included)... [facility] 07-17-2024 History of Present illness Narrative Chief Complaint Patient presents with: Follow Up: 6 months HPI Liam King is a 73 year old female who presents here today for Chronic Medical Conditions.. Patient with hx as below. Patient is only taking 5mg of lisinopril. Isn't sure how she got off of the 10mg.. States that home readings are around 130-136/80-85. Concerns: Acid reflux for the past year. Doesn't take anything for this. Intermittent. 2-3 times a day. Magnesium? Tingling at night. Not every night. Past medical history, appointments, medications, allergies reviewed. Previous Medical History PAST MEDICAL HISTORY Diagnosis Date Age-related osteoporosis without current pathological fracture 01/06/2021 patient declines treatment beyond calcium and vit d as of 01/06/21. Repeat bone density in 2 years Arthritis of both knees 04/29/2020 Sever on right and moderate on left of medial joint spaces. Dyslipidemia 01/10/2024 Elevated fasting glucose 07/08/2019 Family history of thyroid disease 10/25/2016 Hemorrhage of rectum and anus 08/03/2005 Hypertension, essential 01/16/2022 Low serum vitamin B12 07/25/2023 Medicare annual wellness visit, subsequent 10/25/2016 last done: 10/25/2016 Pain in left knee 05/06/2015 Paresthesia 07/25/2023 Hands and Feet: 06/2023 B12 low so started on B12. If no improvement may need NCS/EMG's Renal cyst 11/26/2021 Varicose veins 05/06/2015 Previous Surgical History PAST SURGICAL HISTORY Procedure Laterality Date COLONOSCOPY 2005 COLONOSCOPY SCREENING 12/2022 FECAL OCCULT BLOOD TEST 11/08/2016 negative PAST SURGICAL HISTORY OF 1977 varicose veins stripped bilateral. PAST SURGICAL HISTORY OF sclerotherapy several times PAST SURGICAL HISTORY OF 2007 anterior vaginal repair prolapse TOTAL KNEE REPLACEMENT Left 12/2023 Family History FAMILY HISTORY Problem Relation Age of Onset Cancer Mother smoker Thyroid Mother Alzheimer's Disease Father Heart disease Sister Stroke Maternal Grandfather Diabetes Paternal Grandmother Patient Allergies ALLERGIES No Known Allergies Current Medications Current Outpatient Medications on File Prior to Visit Medication Sig lisinopril (ZESTRIL) 10 mg tablet Take 1 tablet by mouth once daily. lisinopril (ZESTRIL) 5 mg tablet Take 1 tablet by mouth once daily. Take with the 10mg for total dose of 15mg daily celecoxib (CELEBREX) 200 mg capsule Take 1 capsule by mouth once daily. cyanocobalamin (VITAMIN B-12) 1,000 mcg tab Take 1,000 mcg by mouth once daily. Cholecalciferol, Vitamin D3, 1,000 unit cap Take 2,000 Units by mouth once daily. No current facility-administered medications on file prior to visit. Social History Social History Tobacco Use Smoking status: Never Smokeless tobacco: Never Vaping Use Vaping status: Never Used Substance Use Topics Alcohol use: Yes Comment: ocassional wine Drug use: Never Review of Symptoms REVIEW OF SYSTEMS GENERAL: No weight loss, malaise or fevers NECK: Negative for lumps, goiter, pain and significant neck swelling RESPIRATORY: Negative for cough, hemoptysis, wheezing, COPD, dyspnea or shortness of breath CARDIOVASCULAR: Negative for chest pain, leg swelling, hypertension, CHF or palpitations NEURO: No history of headaches, syncope, paralysis, seizures or tremors EXAM: BP 138/80 Pulse 90 Temp 37.2 C (98.9 F) Resp 14 Wt 57.2 kg (126 lb) SpO2 96% BMI 24.20 kg/m General Appearance: Well appearing, alert, in no acute distress, well-hydrated, well nourished.. Neck: Supple, no adenopathy; thyroid symmetric, normal size, no bruits. Lungs: Lungs clear to auscultation. No wheezing, rhonchi, rales.. Heart: RRR without murmur, gallop, or rubs. No ectopy. Extremities: No deformities, edema, skin discoloration, clubbing or cyanosis. Good capillary refill. . Peripheral Pulses: Normal. Health Maintenance List BP Controlled (<130/80) Never done Bone Density Screening due on 12/21/2022 Advance Directive Discussion due on 05/29/2024 Mammogram Screening due on 06/22/2024 Cervical Cancer Screening due on 07/10/2024 Influenza Vaccine(1) due on 11/25/2024 DTaP,Tdap,Td Vaccine(2 - Td or Tdap) due on 12/01/2024 Depression Screening due on 01/09/2025 Anxiety Screening due on 01/09/2025 Annual PCP Team Chronic Disease Visit due on 07/17/2025 Diabetes Screening due on 07/12/2027 Lipid Screening due on 07/12/2029 Hepatitis C Screening Completed Colorectal Cancer Screening Discontinued RSV Vaccine Discontinued Shingrix Vaccine Discontinued Covid-19 Vaccine Discontinued Pneumococcal Vaccine: 50+ Discontinued Data reviewed Latest Ref Rng 07/12/2024 WBC 3.70 - 11.00 k/uL 5.62 RBC 3.90 - 5.20 m/uL 5.16 Hemoglobin 11.5 - 15.5 g/dL 15.5 Hematocrit 36.0 - 46.0 % 47.3 (H) MCV 80.0 - 100.0 fL 91.7 MCH 26.0 - 34.0 pg 30.0 MCHC 30.5 - 36.0 g/dL 32.8 RDW-CV 11.5 - 15.0 % 13.5 Platelet Count 150 - 400 k/uL 215 MPV 9.0 - 12.7 fL 11.0 Neut% % 62.3 Abs Neut (ANC) 1.45 - 7.50 k/uL 3.50 Lymph% % 26.3 Abs Lymph 1.00 - 4.00 k/uL 1.48 Irion% % 8.4 Abs Irion <0.87 k/uL 0.47 Eosin% % 1.4 Abs Eosin <0.46 k/uL 0.08 Baso% % 1.2 Abs Baso <0.11 k/uL 0.07 Immature Gran % % 0.4 IMMATURE GRANS (ABS) <0.10 k/uL <0.03 NRBC /100 WBC 0.0 Absolute nRBC <0.01 k/uL <0.01 DTYPE Auto Protein, Total 6.3 - 8.0 g/dL 7.3 Albumin 3.9 - 4.9 g/dL 4.5 Calcium 8.5 - 10.2 mg/dL 10.0 Bilirubin, Total 0.2 - 1.3 mg/dL 0.6 Alkaline Phosphatase 34 - 123 U/L 90 AST 13 - 35 U/L 20 ALT 7 - 38 U/L 11 Glucose 74 - 99 mg/dL 99 BUN 7 - 21 mg/dL 18 Creatinine 0.58 - 0.96 mg/dL 0.71 Sodium 136 - 144 mmol/L 141 Potassium 3.7 - 5.1 mmol/L 4.1 Chloride 98 - 107 mmol/L 107 CO2 22 - 30 mmol/L 24 Anion Gap 8 - 15 mmol/L 10 eGFR >=60 mL/min/1.73m 90 Total Cholesterol, Nonfasting <200 mg/dL 194 Triglycerides, Nonfasting <150 mg/dL 146 HDL Cholesterol, Nonfasting >39 mg/dL 41 LDL Cholesterol, Nonfasting <100 mg/dL 124 (H) Non HDL Cholesterol, Nonfasting <130 mg/dL 153 (H) VLDL Cholesterol, Nonfasting <30 mg/dL 29 Total Chol/HDL Ratio, Nonfasting <5.10 mg/dL 4.73 LDL/HDL Ratio, Nonfasting <2.54 mg/dL 3.02 (H) Hemoglobin A1C 4.3 - 5.6 % 5.7 (H) Estimated Average Glucose mg/dL 117 TSH 0.270 - 4.200 mIU/L 1.680 Vitamin B12 232 - 1,245 pg/mL 447 Legend: (H) High ASSESSMENT/PLAN: 1. Hypertension, essential - ICD9: 401.9, ICD10: I10 (primary diagnosis) Fair control. Patient wants to stay on just the 5mg for now and monitor at home - Recommend home blood pressure monitoring, to bring results to next visit - Encouraged sodium restriction, DASH or Mediterranean diet - Recommend regular aerobic exercise 2. Gastroesophageal reflux disease without esophagitis - ICD9: 530.81, ICD10: K21.9 Discussed options. Will treat with omeprazole with plans of tapering off of it in 2-4 months. Recheck in 6 weeks. Consider US and EGD - MAGNESIUM - VITAMIN B12 3. Encounter for screening mammogram for breast cancer - ICD9: V76.12, ICD10: Z12.31 - BERNARD SCREENING W MARY 4. Asymptomatic menopause - ICD9: V49.81, ICD10: Z78.0 - DXA-AXIAL SKELETON 5. Paresthesia - ICD9: 782.0, ICD10: R20.2 Discussed additional testing. Declines at this time 6. Elevated fasting glucose - ICD9: 790.21, ICD10: R73.01 Recent labs are normal 7. Low serum vitamin B12 - ICD9: 266.2, ICD10: E53.8 Recent labs are normal 8. Dyslipidemia - ICD9: 272.4, ICD10: E78.5 - Improving control - Counseled on healthy diet and regular exercise 9. Medication management - ICD9: V58.69, ICD10: Z79.899 - MAGNESIUM - VITAMIN B12 Recheck in 6 weeks for acid reflux and in 6 months for wellness. Marilyn Hair PA-C documented in this encounter [facility] 07-12-2024 Telephone encounter Note Called and left a detailed voicemail notifying patient of providers message. Clinic phone number was left in case patient had any questions. Shraddha Lanza RN [facility] 07-12-2024 Miscellaneous Notes Called and left a detailed voicemail notifying patient of providers message. Clinic phone number was left in case patient had any questions. Shraddha Lanza RN Labs ordered. Patient is here for labs. Needs orders. Michael Wetzel MA documented in this encounter [facility] 07-12-2024 Telephone encounter Note Labs ordered. [facility] 07-12-2024 Telephone encounter Note Patient is here for labs. Needs orders. Michael Wetzel MA [facility] 05-15-2024 Emergency department Note HPI Chief Complaint Patient presents with Flu Symptoms Pt states 3 to 4 days ago she started to feel ill. Pt states she started to cough up yellow phlegm and felt very congested with sore throat and painful ears. Pt denies fevers and SOB. Patient presents to the emergency department secondary to nasal congestion with cough for 3 days. Denies fever. Took ibuprofen yesterday. 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 No pertinent past medical history. History reviewed. No pertinent surgical history. No family history on file. Social History Tobacco Use Smoking status: Never Smokeless tobacco: Never Vaping Use Vaping status: Never Used Substance Use Topics Alcohol use: Never Drug use: Never Physical Exam ED Triage Vitals [05/15/24 0504] Temperature Heart Rate Respirations BP 36.8 C (98.3 F) 85 18 139/82 Pulse Ox Temp Source Heart Rate Source Patient Position 94 % Temporal Monitor -- BP Location FiO2 (%) -- -- Physical Exam Vitals and nursing note reviewed. Constitutional: General: She is not in acute distress. Appearance: Normal appearance. She is normal weight. She is not ill-appearing, toxic-appearing or diaphoretic. HENT: Head: Normocephalic and atraumatic. Right Ear: Tympanic membrane, ear canal and external ear normal. There is no impacted cerumen. Left Ear: Tympanic membrane, ear canal and external ear normal. There is no impacted cerumen. Nose: Nose normal. No rhinorrhea. Mouth/Throat: Mouth: Mucous membranes are moist. Pharynx: Oropharynx is clear. No oropharyngeal exudate or posterior oropharyngeal erythema. Eyes: Conjunctiva/sclera: Conjunctivae normal. Neck: Comments: Trachea is midline Cardiovascular: Rate and Rhythm: Normal rate and regular rhythm. Heart sounds: No murmur heard. Pulmonary: Effort: Pulmonary effort is normal. Breath sounds: Normal breath sounds. No wheezing. Abdominal: General: Abdomen is flat. Bowel sounds are normal. There is no distension. Palpations: Abdomen is soft. Tenderness: There is no abdominal tenderness. Musculoskeletal: General: Normal range of motion. Cervical back: Normal range of motion. Skin: General: Skin is warm and dry. Findings: No rash. Neurological: General: No focal deficit present. Mental Status: She is alert and oriented to person, place, and time. Mental status is at baseline. Psychiatric: Mood and Affect: Mood normal. Behavior: Behavior normal. Thought Content: Thought content normal. Judgment: Judgment normal. ED Course & MDM Diagnoses as of 05/15/24 0648 Viral URI No data recorded [place] Coma Scale Score: 15 (05/15/24 0501 : Debra Ly RN) Medical Decision Making Viral swabs are unremarkable. Patient's physical examination and vital signs are all unremarkable. Patient's symptoms are suggestive of viral illness. Given that her symptoms have only been present for 3 days I do not feel antibiotics are warranted. The patient will be given a prescription for Mucinex DM and instructed to follow-up with her private physician. Educated about supportive care measures. Return at anytime if worse. Procedure Procedures Ravin Osuna DO 05/15/2448 documented in this encounter [facility] Work Phone: 05-15-2024 Physician Emergency department Note HPI Chief Complaint Patient presents with Flu Symptoms Pt states 3 to 4 days ago she started to feel ill. Pt states she started to cough up yellow phlegm and felt very congested with sore throat and painful ears. Pt denies fevers and SOB. Patient presents to the emergency department secondary to nasal congestion with cough for 3 days. Denies fever. Took ibuprofen yesterday. 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 No pertinent past medical history. History reviewed. No pertinent surgical history. No family history on file. Social History Tobacco Use Smoking status: Never Smokeless tobacco: Never Vaping Use Vaping status: Never Used Substance Use Topics Alcohol use: Never Drug use: Never Physical Exam ED Triage Vitals [05/15/24 0504] Temperature Heart Rate Respirations BP 36.8 C (98.3 F) 85 18 139/82 Pulse Ox Temp Source Heart Rate Source Patient Position 94 % Temporal Monitor -- BP Location FiO2 (%) -- -- Physical Exam Vitals and nursing note reviewed. Constitutional: General: She is not in acute distress. Appearance: Normal appearance. She is normal weight. She is not ill-appearing, toxic-appearing or diaphoretic. HENT: Head: Normocephalic and atraumatic. Right Ear: Tympanic membrane, ear canal and external ear normal. There is no impacted cerumen. Left Ear: Tympanic membrane, ear canal and external ear normal. There is no impacted cerumen. Nose: Nose normal. No rhinorrhea. Mouth/Throat: Mouth: Mucous membranes are moist. Pharynx: Oropharynx is clear. No oropharyngeal exudate or posterior oropharyngeal erythema. Eyes: Conjunctiva/sclera: Conjunctivae normal. Neck: Comments: Trachea is midline Cardiovascular: Rate and Rhythm: Normal rate and regular rhythm. Heart sounds: No murmur heard. Pulmonary: Effort: Pulmonary effort is normal. Breath sounds: Normal breath sounds. No wheezing. Abdominal: General: Abdomen is flat. Bowel sounds are normal. There is no distension. Palpations: Abdomen is soft. Tenderness: There is no abdominal tenderness. Musculoskeletal: General: Normal range of motion. Cervical back: Normal range of motion. Skin: General: Skin is warm and dry. Findings: No rash. Neurological: General: No focal deficit present. Mental Status: She is alert and oriented to person, place, and time. Mental status is at baseline. Psychiatric: Mood and Affect: Mood normal. Behavior: Behavior normal. Thought Content: Thought content normal. Judgment: Judgment normal. ED Course & MDM Diagnoses as of 05/15/24 0648 Viral URI No data recorded [place] Coma Scale Score: 15 (05/15/24 0501 : Debra Ly RN) Medical Decision Making Viral swabs are unremarkable. Patient's physical examination and vital signs are all unremarkable. Patient's symptoms are suggestive of viral illness. Given that her symptoms have only been present for 3 days I do not feel antibiotics are warranted. The patient will be given a prescription for Mucinex DM and instructed to follow-up with her private physician. Educated about supportive care measures. Return at anytime if worse. Procedure Procedures Ravin Osuna DO 05/15/24 0648 [facility] Work Phone: 02-26-2024 Telephone encounter Note Pt calling for refill for lisinopril 10mg. Pt states she stopped taking the 5mg, states she didn't feel she needed the extra 5mg & states her BPs have been in good range. BP at OV 01/10/24 was 152/86 & 138/84. The patient has been identified by name and date of : Yes Caregiver verified no other encounters exist for this prescription request: Yes Caregiver confirmed with patient/requestor that no other refills are due, in the near future, with this provider at this time: Yes The last office visit in the department: 01/10/2024 Does the patient have a future office visit with this provider/department: Yes 07/15/2024 Requested Prescriptions Pending Prescriptions Disp Refills lisinopril (ZESTRIL) 10 mg tablet 30 tablet 5 Sig: Take 1 tablet by mouth once daily. Jonelle Casanova LPN February 26, 2024 11:40 AM [facility] 02-26-2024 Miscellaneous Notes Pt calling for refill for lisinopril 10mg. Pt states she stopped taking the 5mg, states she didn't feel she needed the extra 5mg & states her BPs have been in good range. BP at 01/10/24 was 152/86 & 138/84. The patient has been identified by name and date of : Yes Caregiver verified no other encounters exist for this prescription request: Yes Caregiver confirmed with patient/requestor that no other refills are due, in the near future, with this provider at this time: Yes The last office visit in the department: 01/10/2024 Does the patient have a future office visit with this provider/department: Yes 07/15/2024 Requested Prescriptions Pending Prescriptions Disp Refills lisinopril (ZESTRIL) 10 mg tablet 30 tablet 5 Sig: Take 1 tablet by mouth once daily. Jonelle Casanova LPN February 26, 2024 11:40 AM documented in this encounter [facility] 02-08-2024 History of Present illness Narrative Ortho Nurse - Established Patient Intake Room#: 4 Date: 02/08/2024 1:57 PM Patient: Liam King MR#: [id number] : 1950 Age: 73 y.o. 3wk L TKA Pt stated she is doing really good, and stated her pain is a 4/10. Pt was wearing her davide hose at the time. Referring Physician: Vidal Jewell APRN-CNP Insurance: Payor: MEDICARE / Plan: MEDICARE A AND B / Product Type: *No Product type* / Chief Complaint Patient presents with Left Knee - Post Op Visit Visit Vitals Ht 1.549 m (5' 1) Wt 56.7 kg (125 lb) BMI 23.62 kg/m Pain Recent Labs No results found for: CRP No results found for: SEDRATE Lab Results Component Value Date WBC 5.5 01/04/2024 HGB 15.4 01/04/2024 HCT 45.9 01/04/2024 PLATELET 209 01/04/2024 MCV 92.7 01/04/2024 History Past Medical History: Diagnosis Date Arthritis Essential hypertension, benign GERD (gastroesophageal reflux disease) Past Surgical History: Procedure Laterality Date ARTHROPLASTY KNEE TOTAL Left 01/17/2024 Laterality: Left; Surgeon: Rosalinda Barajas MD; Location: [facility] OR EXENTERATION PELVIC/GYNECOLOGIC ANTERIOR 2007 at [place] COLONOSCOPY DIAGNOSTIC x 2 Family History: Her family history includes Anesth Problems in her mother; Dementia in her father; Lung Cancer in her mother. Social History: Her reports that she has never smoked. She has never used smokeless tobacco. She reports current alcohol use. She reports that she does not use drugs. Outpatient Medications Prior to Visit Medication Sig Dispense Refill Acetaminophen 325 MG tablet Take 2 tablets by mouth every 4 hours as needed for Mild Pain. Do not exceed 4000mg of Tylenol in 24 hour period. 50 tablet [address] tablet Take 1 tablet by mouth 2 times daily. This medication is for blood clot prevention. Take with food. 60 tablet 0 Celecoxib 200 MG capsule Take 1 capsule by mouth 2 times daily. Take with food. 84 capsule 0 Docusate 100 MG capsule Take 1 capsule by mouth 2 times daily. Hold for loose stools. 60 capsule 0 Lisinopril 10 MG tablet Take 1 tablet by mouth daily. omeprazole [address] capsule Take 1 capsule by mouth daily. 30 capsule 0 Ondansetron 4 MG tablet Take 1 tablet by mouth every 8 hours as needed for Nausea / Vomiting. 6 tablet 0 therapeutic multivitamin-minerals tablet Take 1 tablet by mouth at bedtime. 30 tablet 0 hydroCODone-acetaminophen 5-325 MG tablet Take 1-2 tablets by mouth every 6 hours as needed for up to 7 days. Do not take over 4000mg acetaminophen daily. 30 tablet 0 naloxone 4 MG/0.1ML 1 spray by Nasal route once for 1 dose. Blair into the nose as directed. Call 911. If no response in 2 minutes use a new nasal spray in other nostril. Repeat until help arrives. 1 Each 0 oxyCODONE 5 MG tablet Take 1-2 tabs every 4-6 hours as needed for severe pain. Wean as tolerated 30 tablet 0 No facility-administered medications prior to visit. Current Outpatient Medications: Acetaminophen 325 MG tablet, Take 2 tablets by mouth every 4 hours as needed for Mild Pain. Do not exceed 4000mg of Tylenol in 24 hour period., Disp: 50 tablet, Rfl: [address] tablet, Take 1 tablet by mouth 2 times daily. This medication is for blood clot prevention. Take with food., Disp: 60 tablet, Rfl: 0 Celecoxib 200 MG capsule, Take 1 capsule by mouth 2 times daily. Take with food., Disp: 84 capsule, Rfl: 0 Docusate 100 MG capsule, Take 1 capsule by mouth 2 times daily. Hold for loose stools., Disp: 60 capsule, Rfl: 0 Lisinopril 10 MG tablet, Take 1 tablet by mouth daily., Disp: , Rfl: omeprazole [address] capsule, Take 1 capsule by mouth daily., Disp: 30 capsule, Rfl: 0 Ondansetron 4 MG tablet, Take 1 tablet by mouth every 8 hours as needed for Nausea / Vomiting., Disp: 6 tablet, Rfl: 0 therapeutic multivitamin-minerals tablet, Take 1 tablet by mouth at bedtime., Disp: 30 tablet, Rfl: 0 hydroCODone-acetaminophen 5-325 MG tablet, Take 1-2 tablets by mouth every 6 hours as needed for up to 7 days. Do not take over 4000mg acetaminophen daily., Disp: 30 tablet, Rfl: 0 naloxone 4 MG/0.1ML, 1 spray by Nasal route once for 1 dose. Blair into the nose as directed. Call 911. If no response in 2 minutes use a new nasal spray in other nostril. Repeat until help arrives., Disp: 1 Each, Rfl: 0 oxyCODONE 5 MG tablet, Take 1-2 tabs every 4-6 hours as needed for severe pain. Wean as tolerated, Disp: 30 tablet, Rfl: 0 Allergies: She is allergic to demerol hcl [meperidine] and sodium pentobarbital [pentobarbital]. HPI: Liam King is 3 weeks s/p left TKA. She is happy with her recovery to date and could not be happier with the outcomes of the operation. She is participating in PT in the home setting, using asa for DVT prophylaxis along with compression stockings. She is using tylenol and celebrex for pain control.. PHYSICAL EXAM: Today on examination she is Ht 1.549 m (5' 1) Wt 56.7 kg (125 lb) BMI 23.62 kg/m Smoking Status Never Body mass index is 23.62 kg/m . Pain is reported as 4 /10. Incision is healing well without erythema, drainage, induration or evidence of dehiscence. There is mild global knee swelling. Calves are soft and non tender bilaterally with negative Homans sign. Distal neurovascular exam is intact. ROM is reported as unk in physical therapy, today it is found to be 5-110. The examination is stable to varus and valgus stress. DIAGNOSTIC STUDIES/INTERPRETATION: X-rays were reviewed today and reveal Cemented total knee arthroplasty in good position and alignment unchanged from the immediate postop films. Assessment/Plan: 3 weeks postop left TKA. Continue DVT prophylaxis as prescribed. Continue physical therapy- if ROM goals not obtained the patient is to call the office for a follow up appointment otherwise plan for: Follow up 3 months vs [address] Barajas for clinical and radiological evaluation unless an earlier need should arise. Dental prophylaxis was prescribed and instructions given. All questions and concerns were addressed at this appointment and the patient expressed understanding. All pertinent portions of the clinical care support representative documentation was reviewed and agree. LIVIA Russell I have reviewed the findings of the clinical care support representative and agree with their assessment. LIVIA Russell Ortho Nurse - Established Patient Intake Room#: 4 Date: 02/08/2024 1:57 PM Patient: Liam King MR#: [id number] : 1950 Age: 73 y.o. 3wk L TKA Pt stated she is doing really good, and stated her pain is a 4/10. Pt was wearing her davide hose at the time. Referring Physician: Vidal Jewell APRN-CNP Insurance: Payor: MEDICARE / Plan: MEDICARE A AND B / Product Type: *No Product type* / Chief Complaint Patient presents with Left Knee - Post Op Visit Visit Vitals Ht 1.549 m (5' 1) Wt 56.7 kg (125 lb) BMI 23.62 kg/m Pain Recent Labs No results found for: CRP No results found for: SEDRATE Lab Results Component Value Date WBC 5.5 01/04/2024 HGB 15.4 01/04/2024 HCT 45.9 01/04/2024 PLATELET 209 01/04/2024 MCV 92.7 01/04/2024 History Past Medical History: Diagnosis Date Arthritis Essential hypertension, benign GERD (gastroesophageal reflux disease) Past Surgical History: Procedure Laterality Date ARTHROPLASTY KNEE TOTAL Left 01/17/2024 Laterality: Left; Surgeon: Rosalinda Barajas MD; Location: [facility] OR EXENTERATION PELVIC/GYNECOLOGIC ANTERIOR 2007 at [place] COLONOSCOPY DIAGNOSTIC x 2 Family History: Her family history includes Anesth Problems in her mother; Dementia in her father; Lung Cancer in her mother. Social History: Her reports that she has never smoked. She has never used smokeless tobacco. She reports current alcohol use. She reports that she does not use drugs. Outpatient Medications Prior to Visit Medication Sig Dispense Refill Acetaminophen 325 MG tablet Take 2 tablets by mouth every 4 hours as needed for Mild Pain. Do not exceed 4000mg of Tylenol in 24 hour period. 50 tablet [address] Aspirin [address] tablet Take 1 tablet by mouth 2 times daily. This medication is for blood clot prevention. Take with food. 60 tablet 0 Celecoxib 200 MG capsule Take 1 capsule by mouth 2 times daily. Take with food. 84 capsule 0 Docusate 100 MG capsule Take 1 capsule by mouth 2 times daily. Hold for loose stools. 60 capsule 0 Lisinopril 10 MG tablet Take 1 tablet by mouth daily. omeprazole [address] capsule Take 1 capsule by mouth daily. 30 capsule 0 Ondansetron 4 MG tablet Take 1 tablet by mouth every 8 hours as needed for Nausea / Vomiting. 6 tablet 0 therapeutic multivitamin-minerals tablet Take 1 tablet by mouth at bedtime. 30 tablet 0 hydroCODone-acetaminophen 5-325 MG tablet Take 1-2 tablets by mouth every 6 hours as needed for up to 7 days. Do not take over 4000mg acetaminophen daily. 30 tablet 0 naloxone 4 MG/0.1ML 1 spray by Nasal route once for 1 dose. Blair into the nose as directed. Call 911. If no response in 2 minutes use a new nasal spray in other nostril. Repeat until help arrives. 1 Each 0 oxyCODONE 5 MG tablet Take 1-2 tabs every 4-6 hours as needed for severe pain. Wean as tolerated 30 tablet 0 No facility-administered medications prior to visit. Current Outpatient Medications: Acetaminophen 325 MG tablet, Take 2 tablets by mouth every 4 hours as needed for Mild Pain. Do not exceed 4000mg of Tylenol in 24 hour period., Disp: 50 tablet, Rfl: [address] tablet, Take 1 tablet by mouth 2 times daily. This medication is for blood clot prevention. Take with food., Disp: 60 tablet, Rfl: 0 Celecoxib 200 MG capsule, Take 1 capsule by mouth 2 times daily. Take with food., Disp: 84 capsule, Rfl: 0 Docusate 100 MG capsule, Take 1 capsule by mouth 2 times daily. Hold for loose stools., Disp: 60 capsule, Rfl: 0 Lisinopril 10 MG tablet, Take 1 tablet by mouth daily., Disp: , Rfl: omeprazole [address] capsule, Take 1 capsule by mouth daily., Disp: 30 capsule, Rfl: 0 Ondansetron 4 MG tablet, Take 1 tablet by mouth every 8 hours as needed for Nausea / Vomiting., Disp: 6 tablet, Rfl: 0 therapeutic multivitamin-minerals tablet, Take 1 tablet by mouth at bedtime., Disp: 30 tablet, Rfl: 0 hydroCODone-acetaminophen 5-325 MG tablet, Take 1-2 tablets by mouth every 6 hours as needed for up to 7 days. Do not take over 4000mg acetaminophen daily., Disp: 30 tablet, Rfl: 0 naloxone 4 MG/0.1ML, 1 spray by Nasal route once for 1 dose. Blair into the nose as directed. Call 911. If no response in 2 minutes use a new nasal spray in other nostril. Repeat until help arrives., Disp: 1 Each, Rfl: 0 oxyCODONE 5 MG tablet, Take 1-2 tabs every 4-6 hours as needed for severe pain. Wean as tolerated, Disp: 30 tablet, Rfl: 0 Allergies: She is allergic to demerol hcl [meperidine] and sodium pentobarbital [pentobarbital]. documented in this encounter [facility] 01-17-2024 History of Present illness Narrative Patient discharged to home via wheelchair in stable condition. Patient has met all criteria for discharge and has verbalizes readiness. Patient discharged with all belongings. Care of patient transferred to patient's . Discharge instructions reviewed per ORLIN Andres with patient. They deny any further questions at this time. Discharge folder given to patient for take home. Discharge instructions have been faxed to [facility]. Per patient's request she is no longer wanting to do meds to bed. Prefers to have medications sent to [facility] in [place]. MARGARETH Real updated and will switch over scripts. 01/17/24 1100 Time In/Out Time In 1100 Time Out 1130 Total Visit Time 30 minutes Total Treatment Time (skilled, billable minutes) 35 minutes OT Therapy Completed Yes OT Therapies Still to Complete 6 Initial Evaluation/Screen Completed? yes General Information RN Approved Intervention as tolerated Admitting Diagnosis OA of L knee Surgical Procedure L TKA with on Q ball and hemovac Past Surgical History Past Surgical History: Procedure Laterality Date EXENTERATION PELVIC/GYNECOLOGIC ANTERIOR 2007 at [place] COLONOSCOPY DIAGNOSTIC x 2 Past Medical History Past Medical History: Diagnosis Date Arthritis Essential hypertension, benign GERD (gastroesophageal reflux disease) Existing Precautions/Restrictions fall Previous Level of Function Bed Mobility independent Bathing independent Upper Body Dressing independent Lower Body Dressing independent Grooming independent Toileting independent Eating independent Home Management Skills independent General Pain Documentation (Adult, OB, Peds) Presence of Pain denies pain/discomfort Presence of Pain Score (Auto-calculated) 0 Home Setting Residence Condo Lives With spouse First floor setup bedroom;walk-in shower;tub shower Number of Stairs to Enter Home 0 Number of Stairs Within Home 0 Cognitive Status Examination Orientation Status (Cognition) oriented x 4 Level of Consciousness alert Able to Follow Commands (Communication) WNL Personal Safety and Judgment intact Short Term Memory intact Custodial Memory intact Vision Screen Currently wearing corrective lenses No Speech Speech no gross deficits noted Hearing Hearing no gross deficits noted Range of Motion (ROM) Range of Motion Examination bilateral upper extremity ROM was WNL Manual Muscle Testing (MMT) 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, Right return to WDL 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, Left return to WDL Bed Mobility Skill: Supine to Sit, Rehab Eval Level of [place]: Supine/Sit supervision Physical Assist/Nonphysical Assist: Supine/Sit 1 person assist Transfer Skill: Sit to Stand, Rehab Eval Level of [place]: Sit/Stand contact guard Physical Assist/Nonphysical Assist: Sit/Stand 1 person assist Weight-Bearing Restrictions: Sit/Stand weight-bearing as tolerated Assistive Device for Transfer: Sit/Stand standard walker BADL Evaluation Additional Documentation Yes Upper Body Dressing Level of [place] minimum assist (75% patients effort) Physical Assist/Nonphysical Assist 1 person assist Lower Body Dressing Level of [place] moderate assist (50% patients effort) Physical Assist/Nonphysical Assist 1 person assist Toileting Level of [place] minimum assist (75% patients effort) Physical Assist/Nonphysical Assist 1 person assist General Therapy Interventions Planned Therapy Interventions (OT Eval) ADL retraining;balance training;strengthening;transfer training Assessment Assessment Pt is a 73 y.o female s/p L TKA. Pt doing well, is having difficulty staying awake which is impacting ability to complete ADLS independently. Pt educated on davide hose management/routine, safety with fxnl transfers, and modified techniques to increase independence and safety with ADLs. Pt completed ADLs as noted above with assistance needed to reach L foot. Pt educated on the importance of sitting on a sturdy chair to complete dressing to increase safety with noted understanding. PT should progress well with therapy. Clinical Impression Co-evaluation/co-treatment performed? Yes, combination of simultaneous billable and individual billable skilled care was necessary due to medical complexity and functional deficits Patient Instruction/Education comments Pt instructed on safe dressing techniques with on Q ball and hemovac. Pt educated on the importance of not getting into shower until Q ball and hemovac is removed. Pt instructed modified techniques to increase safety with dressing and all ADLs. Patient educated on the importance of following safety recommendations and modified techniques to overall increase safety once discharged to prevent falls at home. All answers/concerns answered this date or directed to nursing as appropriate. Rehab Potential (OT Eval) good Therapy Frequency 7 times a week Today's Treatment Included Pt left in bedside chair, ice donned and call light in reacg Continue care plan yes Goals Goals For Discharge return home Discussed risk / benefits with patient Therapist Recommendations At Discharge Recommendations OT Services not recommended at Discharge Therapist Information License # [id number] Pt will demo toileting, including transfer, CGA Pt will demo stimulated shower transfer (walk in), CGA Pt will demo grooming, standing at sink, with good walker management in bathroom, CGA Pt will demo LB dressing (including davide hose) min A Pt will demo stimulated sponge bathing, min A Patient was assessed in [facility] on 01/03. Met with patient for follow up after surgery to discuss discharge plan, plans to go home with [facility], paperwork faxed. Patient was provided a walker by [employer], paperwork signed by patient and faxed by this CM, and denies additional equipment needs at this time. Nursing reports that the incision has been closed with suture/dermabond and Hemovac/OnQ. 3 week follow up appointment scheduled on 02/[address] Barajas's office. Patient denies any other questions or needs at this time. 01/17/24 1040 Time In/Out Time In 1040 Time Out 1106 Total Visit Time 26 minutes PT Therapy Completed Yes Initial Evaluation/Screen Completed? yes General Information RN Approved Intervention as tolerated Diagnosis OA of the L knee Surgical Procedure L TKA with on-q and hemovac Past Medical History Past Medical History: Diagnosis Date Arthritis Essential hypertension, benign GERD (gastroesophageal reflux disease) Past Surgical History Past Surgical History: Procedure Laterality Date EXENTERATION PELVIC/GYNECOLOGIC ANTERIOR 2007 at [place] COLONOSCOPY DIAGNOSTIC x 2 Existing Precautions/Restrictions fall Left Lower Extremity weight bearing as tolerated Home Setting Residence Condo Lives With spouse First floor setup bedroom Number of stairs to enter home 0 Mobility Equipment Available 2 wheeled walker Previous Level of Function Ambulation independent with all needs General Pain Documentation (Adult, OB, Peds) Presence of Pain denies pain/discomfort Presence of Pain Score (Auto-calculated) 0 Cognitive Status Examination Orientation Status (Cognition) oriented x 4 Level of Consciousness alert Able to Follow Commands (Communication) WNL Personal Safety and Judgment intact Range of Motion (ROM) Range of Motion Examination deficits as listed below (L knee ROM 0-115 degrees) Manual Muscle Testing (MMT) Manual Muscle Testing Results deficits as listed below (L knee 4/5) Bed Mobility Skill: Supine to Sit, Rehab Eval Level of [place]: Supine/Sit stand-by assist Physical Assist/Nonphysical Assist: Supine/Sit 1 person assist Transfer Skill: Sit To Stand, Rehab Eval [place] (Sit-Stand Transfers) contact guard Physical Assist/Nonphysical Assist: Sit/Stand 1 person assist Weight-Bearing Restrictions: Sit/Stand weight-bearing as tolerated Assistive Device For Transfer: Sit/Stand 2 wheeled walker Gait Skills, PT Eval Level of [place]: Gait contact guard Physical Assist/Nonphysical Assist: Gait 1 person assist Weight-Bearing Restrictions: Gait weight-bearing as tolerated Assistive Device For Transfer: Gait 2 wheeled walker Gait Distance 20 feet Gait Analysis, PT Eval Gait Pattern Used swing-to gait Gait Deviations Identified (Gait) decreased jaonna;decreased gait speed;decreased heel strike;decreased step length Impairments Contributing To Gait Deviations impaired balance;decreased strength Balance Additional Documentation (Seated: Good Standing: Fair-) Sensory Examination Sensory Examination WFL Plan of Care Interventions Planned Therapy Interventions balance training;edema control;endurance;gait training;joint mobilization;ROM;strengthening;stretchi ng;transfer training Additional Comments Pt performed glut sets, quad sets, heel slides, SAQ, SLR, and ankle pumps x10 on operative side. Pt educated on sequencing for transfers and gait using FWW, and on heel-toe gait pattern. Pt using a step to pattern and required some cueing for mechanics. Assessment Assessment Narrative Pt is a 73 year old female s/p L TKA with on-q and hemovac. Pt is doing well post op but is very drowsy. Pt has good strength in the L knee with good ROM. Pt has a flexible end feel into flexion. Pt is performing mobility tasks well just slowly. Pt is expected to continue to improve as the effects of anesthesia wear off. Pt will be safe to return home. Discharge Recommendations Pt to return home with PT services. Clinical Impression Co-evaluation/co-treatment performed? Yes, combination of simultaneous billable and individual billable skilled care was necessary due to medical complexity and functional deficits Criteria for Skilled Therapeutic Interventions Met (PT Eval) yes, treatment indicated Impairments Found (PT Eval) Strength;ROM (range of motion);Balance;Transfers;Gait/Locomoti on;Edema;Aerobic capacity/endurance Rehab Potential (PT Eval) good Therapy Frequency BID (twice a day) Continue care plan yes Today's Treatment Included PT evaluation, ther ex, gait and patient education Therapist Recommendations At Discharge Recommendations PT Services recommended at Discharge Plan Plan for next session Next visit progress mobility and ROM, practice car transfers and steps, and review/perform HEP. PT Goals: 1. Patient will perform all transfers with mod I to ensure safety at discharge. 2. Pt will ambulate 200 ft with FWW and mod I to ensure safety with household ambulation. 3. Pt will increase surgical knee ROM to 0-120 degrees. 4. Pt will perform a modified car transfer with SB assist to ensure patient will be safe when leaving home. 5. Pt will ambulate up and down 4 steps with rail and SB assist to ensure safety in and out of home. 6. Pt will be independent with HEP per total joint binder in order to continue with ROM progression at home. 7. Pt will demonstrate understanding of proper procedures for edema control. Patient ambulating in hallway with physical and occupational therapy, gait belt and walker. Pain tolerable. Up to chair. Patient voided without issue on bed williamson. THIS PATIENT HAS HAD ORTHOPEDIC SURGERY AND IS EXPECTED TO HAVE PAIN REQUIRING NARCOTICS FOR >7 DAYS AND MAY NEED UP TO 12 tabs of Oxycodone PER DAY AND THEREFORE 30 tabs ARE BEING DISPENSED IN ACCORDANCE WITH POC DISCUSSED WITH DR BARAJAS. ' We are excited for you to be our guest for your Orthopedic Surgery. We want to reach out today to see if you have any questions and remind of you of some important details in preparation for your upcoming surgery . Do you have a front wheeled walker?No, Nelsy was made aware by this CM that [facility] will provide her with a FWW on her surgery day, states understanding. Do you have the instructions and medication list you were given in Pre-surgical testing? yes Have you stopped that medications that were indicated on your instructions? Yes, nelsy states she stopped his vitamin supplements as indicated on her [facility] instructions Have you been prescribed any new medications since you were seen at [facility]? No Have you had any falls, cuts or open areas prior to surgery? No, Nelsy denies any falls, cuts or open areas. Remember that while you cannot eat after midnight, you may have 16 ounces of water or Poweraide/Gatoraide in the morning before leaving your home for surgery. Patient verbalizes understanding. Nelsy made a request that her wait in the waiting room while she is being prepped and while she has surgery. This request will be passed onto the electrical appliance preparer team in preparation for her visit. We look forward assisting you with your Joint Replacement and meeting your needs for a successful recovery. Questions answered regarding upcoming surgery, patient denies any additional needs, instructed to call office with any concerns. Attempted x2 to number listed on demographics sheet, no answer. CM will attempt to make contact tomorrow. Images from the original note were not included. RE: ekg Received: Yesterday Fortunato Landin, DO Luigi Lewis RN Cc: Jael Arcos RN; Annabel Rogel RN Reviewed and may proceed pending clearance Previous Messages ----- Message ----- From: Luigi Lewis RN Sent: 01/05/2024 4:48 PM EDT To: Jael Arcos RN; Annabel Rogel, RN; * Subject: ekg Please review abnormal EKG from 01/03 and advise. Has medical clearance pending. Thanks documented in this encounter [facility] 01-17-2024 Hospital Discharge instructions Nury Lance RN - 01/17/2024 11:06 AM EDT Images from the original note were not included. Diet: Resume diet tolerated. Medications: > Patients will be sent home with prescriptions, including medication for pain to be taken as directed. Stay ahead and do not allow your pain to get out of control. > If prescribed Aspirin, take twice a day for 30 days. Do not skip a dose, this is your medication for the prevention of blood clots. > If you have not had a bowel movement by your 3rd post-operative day you will need to use a gentle over the counter laxative such as Milk of magnesia, Fiberlax, Miralax, etc. Bowels need to move within 3 days or take action. Davide Hose: > Help reduce the risk of blood clots and decrease swelling > To be worn bilaterally to the lower extremities for 30 days post-op > Patients can take their davide hose off for 1 hour for every 8 hours that they wear them You will be discharged with two pairs of DAVIDE hose. Gel Ice Packs > Change every 4 hours or as needed for swelling and pain for at least the first 2 weeks You will be discharged with six ice gel packs, and one ice gel compression wrap. Dressings: Your incision is closed with Dermabond, this is a skin glue that will come off in time. You may shower with this, however, do NOT saturate or submerge extremity in water (i.e. Bathtub, hot tub, etc.) until cleared by the provider. Do not wash/scrub directly over/on your incision, simply allow the soapy water to run over it ensuring that it rinses well. Pat your incision dry, do not rub your incision with a towel. Do not place any lotions, ointments, creams or powder on your incision or operative leg. When applying your new ABD pad after showering as a reminder do not place any tape over you ABD pad. Your davide hose are to hold your pad in place. When to call us: If you have any concerns regarding your incision, please contact the office immediately. This includes areas of redness, drainage, or concerns for opening in the incision. You will be discharged with seven ABD pads. DRAINS: When you go home after surgery, you may have one or more drains in place to help your wounds heal. Hemovac, Ministerio Walton(KEYLA) and Mark are common drains used for wounds. The purpose is to drain any blood or fluid build up after surgery. The drain is placed in the OR and typically removed anywhere from 24-72 hours post op, depending on the amount of drainage. The drain has a squeezable container connected to flexible tubing. The tubing is put into an area near your surgical incision. When the drain is pressed flat, a gentle suction helps remove fluid from the wound. Your doctor's office will tell you when your drain can be removed. Wound Drainage Systems Taking Care of Your Drain(s) Please call Dr. Barajas's nurse ([phone]) the morning after discharge with the recorded amount of drainage from your hemovac. The nurse will give you further instructions regarding when your drain should be removed or if/when you should call back. You will need to empty the drain every 4 hours while awake and record the drainage amount on your wound drainage record sheet below. Date Time Drainage amount (ML or CC) What does normal drainage look like? After surgery, the color and consistency of your drainage may change in the following way: It is normal for your drainage to be a little bloody in the morning or when you move around and then return to a clear red or pink color the rest of the day. Call your surgeon s office and report if: The drainage color changed from a light color and has become bloody or bright red in color. The drainage smell has changed. The drainage has pus. How to Empty Your Drain Empty your drain every 4 hours while awake and record the output. You should also empty the drain anytime it is detention full and after therapy sessions. Follow these steps to empty your drain: Wash your hands well with soap and warm water. Rinse and dry. Get a measuring cup and your Wound Drainage Record Sheet. Use a record sheet to write down the amount and color of fluid from the drain. You can use the record sheet at the end of this handout or make your own. Unfasten the pin or clip that holds the drain to your clothing. Open the plug on the drain. Turn the drain upside down over the measuring cup and gently squeeze the drain to empty it. Continue to squeeze the drain. Press down on the drain until it is flat and replace the plug. All of the air needs to be out of the drain or it will not work properly. If you are not able to squeeze and plug the drain at the same time, it may help to put the drain on a firm flat surface like a table. Do not let the drain dangle. Carefully pin or clip the drain to your clothing. Attach the drain lower than the area where it comes out of your body. Make sure the tubing lies flat with no kinks. Check the amount and color of the fluid in the measuring cup. Call your doctor if the fluid is cloudy, smells bad or the amount of fluid has increased. Write the date, time, amount and color of the fluid on the wound drainage record sheet. If you have more than one drain, empty, measure and write down the amount of fluid for each drain. Empty the fluid into the toilet, rinse the measuring cup and flush the toilet. If you have more than one drain, repeat steps 3 to 10. Wash your hands well with soap and warm water. Rinse and dry Drain removal Your doctor's office nurse will give you instructions on when it is time to remove your drain. To remove the drain: Wash your hands and prepare by having a gauze pad nearby. Remove the dressing covering the drain site. Grasp the drainage tube close to the skin and begin to pull gently. It should be easy to remove and not painful, however there may be some resistance. Do not tug or pull quickly, use slow gradual pressure. If it feels stuck or hard to remove, STOP and call the office for further instruction. Once the drain is removed, it can be discarded. Cover the site with a small gauze pad and apply pressure for approximately 5 minutes. Once the 5 minutes is up, apply a dressing to the site and continue to monitor. It can be normal to have continued slow, oozing drainage once the drain is gone. If this occurs beyond 4 hours, please let us know. Once there is no longer drainage from the site, the bandage can removed. If you have Home Health Care, your drain can be removed by your Home Health Care Nurse. When to call us: Please contact us at any time if there is a concern with the drain. Such as: bleeding around the site, disconnection of the tubing, malfunctioning of the drain, concern for drain appearance, ect. Please also alert us to any problems with drain removal or concerns post-removal, including inability to remove or continued drainage after removal. Drain removal: If you have Home Health Care, your drain will be removed by your Home Health Care Nurse. If you do not have Home Health Care, please call Dr Barajas's nurse ([phone]) the morning after discharge with the recorded amount of drainage from your hemovac. The nurse will give you further instructions regarding when your drain should be removed. For Knee Replacements: > Physical therapy 3 times per week for 6 full weeks > Maintain uninterrupted therapy if transitioning from home therapy to out patient therapy > No therabands over your wound/incision > Patients should be doing home exercises on days they are not working with a therapist > Do not rest with a pillow under the knee, work on flexion and extension exercises to improve range of motion Ambulation > Weight bearing status as tolerated with a walker then progress to a cane if stable, unless noted otherwise by the physician or therapist. Additional Instructions ON Q PAIN RELIEF SYSTEM You have been provided with an educational handout about your On-Q Pain Relief System. Things to remember: 1.) The ball is NOT filled with narcotics. It is filled with numbing medication called Ropivacaine which is simply numbing the nerves around the knee. 2.) Your ON Q pump is set at 2 ml per hour. As your initial nerve block wears off, you can increase your ON-Q to 4 to 6ml per hour for pain control. For severe pain you may increase to 8ml per hour or higher for 1 hour, then turn your ON Q back down to 4 to 6 ml per hour. 3.) Pump MUST be in black deena pack and worn around the neck, shoulder, or abdomen during therapy or ambulation. This is to ensure that pump doesn't fall and dislodge the catheter. 4.) Do NOT squeeze the ball. 5.) Leaking at the catheter site is normal. Do not be alarmed; just use a paper towel or dry wash cloth to absorb the fluid. 6.) Taking a sponge bath is preferred while having the ON-Q ball in place. 7.) Do not drive 8.) Follow the instructions to remove your ON-Q ball on the ON-Q Catheter Removal Sheet. Once catheter is removed, place a band aid over the incision site. Remove the On-Q ball 7 days after discharge, or when it is empty. 9.) Once the catheter is removed it is NOT reusable, throw the ball away in the trash. As a patient you may be concerned about receiving too much local anesthetic medication; however, the pump has been preset specifically for you. It is unlikely that you will receive too much medicine from the pump. However, if you were to get too much medication it might cause ringing in your ears, blurred vision, mouth or tongue numbness, or a metallic taste. You might feel nervous or confused. If you experience any of these symptoms, clamp the tubing and call the number provided below. If you have questions or concerns call the 24 Hour Product Support Hotline at Contact Office ([phone]) if: > Total Knee ROM < 90 degrees upon admission to home health or at any time during recovery period > Any falls or injuries > Redness, drainage or swelling at the incision site that is out of the ordinary from post-operative findings. (minor redness, swelling and warmth around the entire knee are common post-operatively) > Patient non-compliance with assistive devices during gait > Fever > 101 degrees. (For low grade fevers use Incentive Spirometry @ 10 puffs per hour and tylenol as directed.) The morning after your discharge Dr. Hollis office will contact you to follow up with how your recovery is progressing at home. Anesthesia Precautions & Expectations: After anesthesia, rest for [address], drink alcoholic beverages or make any important decisions during this time. General anesthesia may cause a sore throat, jaw discomfort or muscle aches. These symptoms can last for one or two days. Please refer to your green folder for your discharge instructions. If at any time you feel you have an emergency please dial 911 or [address] you to your closest ER. documented in this encounter [facility] 01-17-2024 Nurse Note Transferred to [facility] via cart in stable condition,SR up x 2,bed in lowest position,call light in reach,SBAR given to Mario ORDAZ. Patient taken via cart to OR, report given to Araceli ORDAZ OR 4 temp 66.8F, humidity 41.6% documented in this encounter [facility] 01-17-2024 Nurse Surgical operation note Transferred to [facility] via cart in stable condition,SR up x 2,bed in lowest position,call light in reach,SBAR given to Mario ORDAZ. [facility] 01-17-2024 Nurse Surgical operation note Patient taken via cart to OR, report given to Araceli ORDAZ [facility] 01-17-2024 Surgery Postoperative evaluation and management note POST OPERATIVE/PROCEDURE NOTE Liam King 73 y.o. female [id number] SURGEON Surgeons and Role: * Rosalinda Barajas MD - Primary PROOF MACHINE OPERATOR SUPERVISOR Beth Quinn ANESTHESIOLOGIST CLAIM AUDITOR: JACOBY Jiang SURGICAL STAFF Sr. Unix System Administrator: Debra Eaton RN; Mag Penn RN Nurse Practitioner: Beth Quinn Scrub Person: Ada Nugent RN English Composition Instructor: Joe Pina LPN PROCEDURE PERFORMED Procedure(s) (LRB): ARTHROPLASTY KNEE TOTAL (Left) Periarticular injection left knee Left adductor canal catheter placement PRIMARY CLOSURE yes ANESTHESIA (type of) General ESTIMATED BLOOD LOSS 25ml DRAINS MED HV BLOOD PRODUCTS None PRE OPERATIVE DIAGNOSIS Osteoarthritis of left knee, unspecified osteoarthritis type [M17.12] POST OPERATIVE DIAGNOSIS Osteoarthritis of left knee, unspecified osteoarthritis type [M17.12] FINDINGS Severe OA of knee CONDITION OF PATIENT Stable COMPLICATION No complications GRAFTS AND/OR IMPLANTS Implant Name Type Inv. Item Serial No. Auto Painter Helper Lot No. LRB No. Used Action PALACOS R 1 X 40 US - [id number] PALACOS R 1 X 40 US [id number] Left 2 Implanted attune knee system tibial base fixed bearing size 2 [id number] DEPU[employer] [id number] Left 1 Implanted attube patekka medialized dome 1518-20-035 DEPUY SYNTHES [id number] Left 1 Implanted attune femoral posterior stabilized narrow [id number] Left 1 Implanted INSERT - KNEE - [id number] INSERT - KNEE [id number] Left 1 Implanted SPECIMENS ID Type Source Tests Collected by Time Destination 1 : left knee bone Permanent TISSUE SURGICAL PATHOLOGY REQUEST Rosalinda Barajas MD 01/17/2024 0818 Beth Quinn January 17, 2024 9:22 AM [facility] 01-17-2024 Miscellaneous Notes POST OPERATIVE/PROCEDURE NOTE Liam King 73 y.o. female [id number] SURGEON Surgeons and Role: * Rosalinda Barajas MD - Primary PROOF MACHINE OPERATOR SUPERVISOR Beth Quinn ANESTHESIOLOGIST CLAIM AUDITOR: JACOBY Jiang SURGICAL STAFF Sr. Unix System Administrator: Dbera Eaton RN; Mag Penn RN Nurse Practitioner: Beth Quinn Scrub Person: Ada Nugent RN English Composition Instructor: Joe Pina LPN PROCEDURE PERFORMED Procedure(s) (LRB): ARTHROPLASTY KNEE TOTAL (Left) Periarticular injection left knee Left adductor canal catheter placement PRIMARY CLOSURE yes ANESTHESIA (type of) General ESTIMATED BLOOD LOSS 25ml DRAINS MED HV BLOOD PRODUCTS None PRE OPERATIVE DIAGNOSIS Osteoarthritis of left knee, unspecified osteoarthritis type [M17.12] POST OPERATIVE DIAGNOSIS Osteoarthritis of left knee, unspecified osteoarthritis type [M17.12] FINDINGS Severe OA of knee CONDITION OF PATIENT Stable COMPLICATION No complications GRAFTS AND/OR IMPLANTS Implant Name Type Inv. Item Serial No. Auto Painter Helper Lot No. LRB No. Used Action PALACOS R 1 X 40 US - [id number] PALACOS R 1 X 40 US [id number] Left 2 Implanted attune knee system tibial base fixed bearing size 2 [id number] [employer]PU[employer] [id number] Left 1 Implanted attube patekka medialized dome 1518-20-035 DEPUY SYNTHES [id number] Left 1 Implanted attune femoral posterior stabilized narrow [id number] Left 1 Implanted INSERT - KNEE - [id number] INSERT - KNEE [id number] Left 1 Implanted SPECIMENS ID Type Source Tests Collected by Time Destination 1 : left knee bone Permanent TISSUE SURGICAL PATHOLOGY REQUEST Rosalinda Barajas MD 01/17/2024 [id number] Beth Quinn January 17, 2024 9:22 AM 01/04/24 1145 Referral Information Arrived From home or self-care (one level condo with no steps to enter) Information Source Information Source patient Information Source Name Nelsy Information Source Number [phone] Contact Information Activity Specialist Name Lulu RIOS deputy county counsel's Phone Number [phone] Living Environment Lives With spouse (With Vitor, one level condo with no steps to enter) Living Arrangement and Set Up condominium Provides Primary Care For no one Primary Care Provided By self Support System Immediate family;Extended family ( and [id number]) Able to Return to Prior Arrangements yes Functional Status Patient's Functional Status Prior To This Admission? Independent Concerns With Patient Being Able To Care For Themselves At Discharge? Has Assistance (Friend, Family, Skilled Provider) Who Is Patient's Primary Contact For Discharge Planning, Education And Care For Discharge? Nelsy Employment/Financial Employed? Retired Employment/Financial Concerns no Financial Concerns none Initial Discharge Planning DME (HARBOR TUG CAPTAIN) None (Needs FWW) Anticipated discharge disposition Home with Home Health Anticipated Services at Discharge Physical Therapy;Usp Transportation Available car;family or friend will provide Assessment/Concerns to be Addressed Concerns To Be Addressed no discharge needs identified This Orthopedic Nurse Navigator met with patient this date to discuss post-surgical discharge plans. Patient states that she plans to return with family assistance and [facility] Care, and Outpatient PT. Patient needs a wheeled walker. Patient denies any other questions or needs at this time. CM to continue to follow and assist with discharge plans. documented in this encounter [facility] 01-17-2024 Nurse Surgical operation note OR 4 temp 66.8F, humidity 41.6% [facility] 01-11-2024 Telephone encounter Note Pt notified of results. Taylor Vasquez LPN [facility] 01-11-2024 Miscellaneous Notes Pt notified of results. Tyalor Vasquez LPN Let patient know her Thyroid lab and B12 were ok. Her lipid panel was ok and showed an improved LDL chol at 138 down from 164. documented in this encounter [facility] 01-10-2024 Telephone encounter Note Let patient know her Thyroid lab and B12 were ok. Her lipid panel was ok and showed an improved LDL chol at 138 down from 164. [facility] 01-10-2024 Instructions Bhanu Meng MD - 01/10/2024 8:46 AM EDT Please get labs done on or after 06/28/2024 prior to your next visit. Screening schedule The following prevention plan is recommended: Depression Screening Never done Anxiety Screening Never done Bone Density Screening due on 12/21/2022 Advance Directive Discussion due on 05/29/2023 Mammogram Screening due on 06/22/2024 Cervical Cancer Screening due on 07/10/2024 WHAT YOU CAN DO TO PREVENT FALLS Many falls can be prevented. By making some changes, you can lower your chances of falling. Four things YOU can do to prevent falls for you* and your caregiver 1. Begin a regular exercise program Exercise is one of the most important ways to lower your chances of falling. It makes you stronger and helps you feel better. Exercises that improve balance and coordination (like Lei Chi) are the most helpful. Lack of exercise leads to weakness and increases your chances of falling. Ask your doctor or health care provider about the best type of exercise program for you. 2. Have your health care provider review your medicines Have your doctor or pharmacist review all the medicines you take, even [id number] medicines. As you get older, the way medicines work in your body can change. Some medicines, or combinations of medicines, can make you sleepy or dizzy and can cause you to fall. 3. Have your vision checked Have your eyes checked by an eye doctor at least once a year. You may be wearing the wrong glasses or have a condition like glaucoma or cataracts that limits your vision. Poor vision can increase your chances of falling. 4. Make your home safer About half of all falls happen at home. To make your home safer: Remove things you can trip over (like papers, books, clothes, and shoes) from stairs and places where you walk. Remove small throw rugs or use double-sided tape to keep the rugs from slipping. Keep items you use often in cabinets you can reach easily without using a step stool. Have grab bars put in next to your toilet and in the tub or shower. Use non-slip mats in the bathtub and on shower floors. Improve the lighting in your home. As you get older, you need brighter lights to see well. Hang light-weight curtains or shades to reduce glare. Have handrails and lights put in on all staircases. Wear shoes both inside and outside the house. Avoid going barefoot or wearing slippers. For more information, contact: Centers for Disease Control and Prevention www.cdc.gov/injury * This information may not apply if you have certain medical conditions. documented in this encounter [facility] 01-10-2024 History of Present illness Narrative Images from the original note were not included. Liam King is a 73 year old female here for a Medicare wellness visit. Medicare Health Risk Assessment General Health Very good Exercise: Minutes/Day 60 min Exercise: Days/Week 7 days Alcohol: Daily Use Monthly or less Alcohol: Drinks/Day 1 or 2 Alcohol: 6 or more drinks Never Feel off balance No Concerns: Teeth/Dentures No Concerns: Sexual function No Troubled by feelings Anxious; Stressed Frequency: Eating healthy diet Nearly every day ADLs requiring help None of the above Safety precautions in home/vehicle No Smoke, vape, chews tobacco No Difficulty hearing No Difficulty seeing No Current Providers Specialists: I have reviewed specialist-related care of the patient in the medical record. Current care team: Patient Care Team: Bhanu Meng MD as PCP - General (Family Medicine) Dr. Eddie Wetzel: NEWSPAPER ILLUSTRATOR: Dr. Barajas: ortho optho Medical/Family history review Reviewed and updated problem list, medical/surgical/family/social history, medications, and allergies. Opioid use review Opioid Medications (last 90 days) No data to display Anxiety/Depression screening PHQ-2 Score: 0 (Lower risk for depression) Recommendation: no further intervention at this time Cognitive screening Score: 5 Cognitive screening reviewed and No further action needed (score 3-5). Functional Observation Was the patient's Timed Up & Go test unsteady or ? 12 seconds? No Advance Care Planning Patient did not wish or was not able to name a surrogate decision maker or provide an advance care plan Measurements BP 152/86 (BP Site: Right Arm, BP Position: Sitting, BP Cuff Size: Regular Adult) Pulse 70 Resp 16 Ht 153.7 cm (5' 0.5) Wt 57.2 kg (126 lb) BMI 24.20 kg/m Vision Screening: Follows with optometry/ophthalmology Assessment/Plan Medicare annual wellness visit, subsequent (Z00.00) - Counseled on healthy diet and regular exercise - Fall avoidance information provided - Personalized prevention plan provided See below Chief Complaint Patient presents with: Medicare Wellness Exam HPI Liam King is a 73 year old female who presents here today for Chronic Medical Conditions. and Medicare Annual Visit. Patient with hx of HTN, elevated glucose, osteoporosis, and those as reviewed below. Patient's last DATA ACQUISITION TECHNICIAN office visit 07/10/2023. Will be having left knee replacement next week with Dr. Barajas at [facility]. No new issues or concerns. Past medical history, appointments, medications, allergies reviewed. Previous Medical History PAST MEDICAL HISTORY 01/06/2021: Age-related osteoporosis without current pathological fracture Comment: patient declines treatment beyond calcium and vit d as of 01/06/21. Repeat bone density in 2 years 04/29/2020: Arthritis of both knees Comment: Sever on right and moderate on left of medial joint spaces. 07/08/2019: Elevated fasting glucose 10/25/2016: Family history of thyroid disease 08/03/2005: Hemorrhage of rectum and anus 01/16/2022: Hypertension, essential 07/25/2023: Low serum vitamin B12 10/25/2016: Medicare annual wellness visit, subsequent Comment: last done: 10/25/2016 05/06/2015: Pain in left knee 11/26/2021: Renal cyst 05/06/2015: Varicose veins Previous Surgical History PAST SURGICAL HISTORY 2006: COLONOSCOPY 12/2022: COLONOSCOPY SCREENING 11/08/2016: FECAL OCCULT BLOOD TEST Comment: negative 1977: PAST SURGICAL HISTORY OF Comment: varicose veins stripped bilateral. No date: PAST SURGICAL HISTORY OF Comment: sclerotherapy several times 2008: PAST SURGICAL HISTORY OF Comment: anterior vaginal repair prolapse Family History FAMILY HISTORY Problem Relation Age of Onset Alzheimer's Disease Father Diabetes Paternal Grandmother Stroke Maternal Grandfather Cancer Mother smoker Thyroid Mother Patient Allergies ALLERGIES No Known Allergies Current Medications Current Outpatient Medications on File Prior to Visit Medication Sig lisinopril (ZESTRIL) 5 mg tablet Take 1 tablet by mouth once daily. Take with the 10mg for total dose of 15mg daily celecoxib (CELEBREX) 200 mg capsule Take 1 capsule by mouth once daily. cyanocobalamin (VITAMIN B-12) 1,000 mcg tab Take 1,000 mcg by mouth once daily. lisinopril (ZESTRIL) 10 [...] No weight loss, malaise or fevers HEENT: Negative for frequent or significant headaches, No changes in hearing or vision, no nose bleeds or other nasal problems NECK: Negative for lumps, goiter, pain and significant neck swelling RESPIRATORY: Negative for cough, hemoptysis, wheezing, COPD, dyspnea or shortness of breath CARDIOVASCULAR: Negative for chest pain, leg swelling, hypertension, CHF or palpitations GI: No nausea, vomiting, or diarrhea, No frequent heartburn or reflux symptoms, and no blood : No history of dysuria, frequency or blood MUSCULOSKELETAL: left knee pain. SKIN: Negative for lesions, rash, and itching PSYCH: Negative for sleep disturbance, mood disorder and recent psychosocial stressors HEMATOLOGY/LYMPHOLOGY: Negative for prolonged bleeding, bruising easily or swollen nodes ENDOCRINE: Negative for cold or heat intolerance, polyuria, polydipsia and goiter NEURO: No history of headaches, syncope, paralysis, seizures or tremors EXAM: BP 152/86 (BP Site: Right Arm, BP Position: Sitting, BP Cuff Size: Regular Adult) Pulse 70 Resp 16 Ht 153.7 cm (5' 0.5) Wt 57.2 kg (126 lb) BMI 24.20 kg/m BP 138/84 Pulse 70 Resp 16 Ht 153.7 cm (5' 0.5) Wt 57.2 kg (126 lb) BMI 24.20 kg/m Last 3 Encounter BP Readings: Date: BP: 01/10/2024 138/84 01/08/2024 116/62 Last 5 Encounter Wt Readings: Date: Wt: 01/10/2024 57.2 kg (126 lb) 01/08/2024 57.2 kg (126 lb) 12/05/2023 57.6 kg (127 lb) 11/06/2023 57.2 kg (126 lb) 10/31/2023 57.6 kg (127 lb) General Appearance: Well appearing, alert, in no acute distress, well-hydrated, well nourished.. Skin: Skin color, texture, turgor normal, no suspicious rashes or lesions. Head: Normocephalic, no masses, lesions, tenderness or abnormalities. Eyes: Anicteric sclera. Pupils are equally round and reactive to light. Extraocular movements are intact. . Ears: External ears, TM's normal, canals clear. Nose/Sinuses: Nares normal, septum [...] clubbing or cyanosis. Good capillary refill. . Musculoskeletal: Muscular strength intact, No joint swelling, deformity, or tenderness. Peripheral Pulses: Normal. Neurologic: Gait normal. Reflexes normal and symmetric. Sensation to light touch and crainal nerves 2-12 intact.. Health Maintenance List Depression Screening Never done Anxiety Screening Never done Bone Density Screening due on 12/21/2022 Advance Directive Discussion due on 05/29/2023 Mammogram Screening due on 06/22/2024 Cervical Cancer Screening due on 07/10/2024 Influenza Vaccine(1) due on 01/28/2024 DTaP,Tdap,Td Vaccine(2 - Td or Tdap) due on 12/01/2024 Annual PCP Team Chronic Disease Visit due on 01/07/2025 BP Controlled (<130/80) due on 01/07/2025 Diabetes Screening due on 01/03/2027 Lipid Screening due on 07/21/2028 Hepatitis C Screening Completed Colorectal Cancer Screening Discontinued RSV Vaccine Discontinued Shingrix Vaccine Discontinued Covid-19 Vaccine Discontinued Pneumococcal Vaccine: 65+ Discontinued Data reviewed Latest Ref Rng 01/04/2024 WBC 3.4 - 10.8 K/uL 5.5 (E) RBC 4.14 - 5.80 M/uL 4.95 (E) Hemoglobin 12.6 - 17.7 g/dL 15.4 (E) Hematocrit 37.5 - 51.0 % 45.9 (E) MCV 79 - 97 fL 92.7 (E) MCH 26.6 - 33 Pg 31.1 (E) MCHC 31.5 - 35.7 g/dL 33.5 (E) RDW 12.3 - 15.4 % 13.1 (E) Platelet Count 150 - 379 k/uL 209 (E) Neutrophil % % 60.4 (E) Lymphocyte % % 28.1 (E) Monocyte % % 8.3 (E) Eosinophil % % 2.0 (E) Basophil % % 1.2 (E) NEUTROPHILS ABSOLUTE 1.4 - 7.0 k/uL 3.3 (E) LYMPHS ABSOLUTE 0.7 - 3.1 k/uL 1.5 (E) EOS ABSOLUTE 0.0 - 0.4 k/uL 0.1 (E) BASO ABSOLUTE 0.0 - 0.2 k/uL 0.1 (E) NA 136 - 145 mmol/L 140 (E) K 3.5 - 5.1 mmol/L 4.5 (E) Chloride 98 - 107 MEQ/L 111 ! (E) CO2 21 - 32 MEQ/L 22 (E) Glucose 74 - 106 MG/DL 108 ! (E) BUN 7 - 18 MG/DL 18 (E) Creatinine 0.6 - 1.3 MG/DL 0.74 (E) GFR mL/MIN 82 (E) GFR AFR AMER mL/MIN 99 (E) Total Protein 6.4 - 8.2 gm/dL 6.9 (E) Albumin 3.2 - 4.6 gm/dL 4.3 (E) Calcium 8.5 - 10.1 mg/dL 10.2 ! (E) Bili Total 0.2 - 1 mg/dL 0.9 (E) AST 8 - 37 U/L 32 (E) ALT (SGPT) 12 - 78 U/L 25 (E) Alk Phos Total 45 - 117 U/L 71 (E) Hemoglobin A1C 0 - 5.7 % 5.6 (E) UA on 01/04/2024 was within normal limits. Legend: ! Abnormal (E) External lab result A/P ASSESSMENT/PLAN: 1. Medicare annual wellness visit, subsequent - ICD9: V70.0, ICD10: Z00.00 (primary diagnosis) - Counseled on healthy diet and regular exercise - Follow up for annual exam in one year 2. Hypertension, essential - ICD9: 401.9, ICD10: I10 - Controlled - Continue current medications - Recommend home blood pressure monitoring, to bring results to next visit - Encouraged sodium restriction, DASH or Mediterranean diet - Recommend regular aerobic exercise Await lipid panel 3. Elevated fasting glucose - ICD9: 790.21, ICD10: R73.01 - controlled with life style changes. 4. Low serum vitamin B12 - ICD9: 266.2, ICD10: E53.8 Cont replacement and check - VITAMIN B12 5. Encounter for gynecological examination without abnormal finding - ICD9: V72.31, ICD10: Z01.419 Sees NEWSPAPER ILLUSTRATOR 6. Advance directive discussed with patient - ICD9: V65.49, ICD10: Z71.89 - patient has to complete 7. Encounter for screening examination for other mental health and behavioral disorders - ICD9: V79.8, ICD10: Z13.39 - ANXIETY SCREENING 8. Screening for depression - ICD9: V79.0, ICD10: Z13.31 - DEPRESSION SCREENING 9. Dyslipidemia - ICD9: 272.4, ICD10: E78.5 -await labs - Counseled on healthy diet and regular exercise F/u 6 months routine check lipid prior I spent a total of 40 minutes on the date of the service which included preparing to see the patient, [id number] patient care, completing clinical documentation, performing a medically appropriate examination, counseling and educating the patient/family/caregiver and ordering medications, tests, or procedures. Bhanu Meng MD documented in this encounter [facility] 01-08-2024 History of Present illness Narrative Chief Complaint Patient presents with: Pre-Op Exam: Left knee replacement HPI Liam King is a 73 year old female who presents here today for Above Complaints.. Patient presents for pre op appointment for total knee replacement. Patient is scheduled for knee replacement 01/17/[address] at [facility]. Past medical history, appointments, medications, allergies reviewed. Previous Medical History PAST MEDICAL HISTORY 01/06/2021: Age-related osteoporosis without current pathological fracture Comment: patient declines treatment beyond calcium and vit d as of 01/06/21. Repeat bone density in 2 years 04/29/2020: Arthritis of both knees Comment: Sever on right and moderate on left of medial joint spaces. 07/08/2019: Elevated fasting glucose 10/25/2016: Family history of thyroid disease 08/03/2005: Hemorrhage of rectum and anus 01/16/2022: Hypertension, essential 07/25/2023: Low serum vitamin B12 10/25/2016: Medicare annual wellness visit, subsequent Comment: last done: 10/25/2016 05/06/2015: Pain in left knee 11/26/2021: Renal cyst 05/06/2015: Varicose veins Previous Surgical History PAST SURGICAL HISTORY 2006: COLONOSCOPY 12/2022: COLONOSCOPY SCREENING 11/08/2016: FECAL OCCULT BLOOD TEST Comment: negative 1977: PAST SURGICAL HISTORY OF Comment: varicose veins stripped bilateral. No date: PAST SURGICAL HISTORY OF Comment: sclerotherapy several times 2008: PAST SURGICAL HISTORY OF Comment: anterior vaginal repair prolapse Family History FAMILY HISTORY Problem Relation Age of Onset Alzheimer's Disease Father Diabetes Paternal Grandmother Stroke Maternal Grandfather Cancer Mother smoker Thyroid Mother Patient Allergies ALLERGIES No Known Allergies Current Medications Current Outpatient Medications on File Prior to Visit Medication Sig lisinopril (ZESTRIL) 5 mg tablet Take 1 tablet by mouth once daily. Take with the 10mg for total dose of 15mg daily celecoxib (CELEBREX) 200 mg capsule Take 1 capsule by mouth once daily. cyanocobalamin (VITAMIN B-12) 1,000 mcg tab Take 1,000 mcg by mouth once daily. lisinopril (ZESTRIL) 10 [...] REVIEW OF SYSTEMS SEE HPI EXAM: BP 116/62 Pulse 74 Resp 14 Wt 57.2 kg (126 lb) BMI 23.81 kg/m General Appearance: Well appearing, alert, in no acute distress, well-hydrated, well nourished.. Skin: Skin color, texture, turgor normal, no suspicious rashes or lesions. Lungs: Lungs clear to auscultation. No wheezing, rhonchi, rales.. Heart: RRR without murmur, gallop, or rubs. No ectopy. Abdomen: Normal abdominal exam, Abdomen soft, non-tender. Bowel sounds normal. No masses, organomegaly. Musculoskeletal: Positive findings: joint location: on left knee painful movement, loss of ROM, and stiffness. Peripheral Pulses: Normal. Neurologic: Gait normal. Reflexes normal and symmetric. Sensation grossly intact.. Health Maintenance List Depression Screening Never done Anxiety Screening Never done BP Controlled (<130/80) Never done Bone Density Screening due on 12/21/2022 Advance Directive Discussion due on 05/29/2023 Mammogram Screening due on 06/22/2024 Cervical Cancer Screening due on 07/10/2024 Influenza Vaccine(1) due on 01/28/2024 DTaP,Tdap,Td Vaccine(2 - Td or Tdap) due on 12/01/2024 Annual PCP Team Chronic Disease Visit due on 12/04/2024 Diabetes Screening due on 01/03/2027 Lipid Screening due on 07/21/2028 Hepatitis C Screening Completed Colorectal Cancer Screening Discontinued RSV Vaccine Discontinued Shingrix Vaccine Discontinued Covid-19 Vaccine Discontinued Pneumococcal Vaccine: 65+ Discontinued Data reviewed Labs reviewed from [facility], no abnormal labs. ASSESSMENT/PLAN: 1. Pre-op evaluation - ICD9: V72.84, ICD10: Z01.818 Based on the patient's history, physical, functional status, and ACS risk score, she has an 0.4% chance of a serious adverse cardiac event. This is average risk for his age an the planned operation. The risk is below the recommended threshold for further evaluation. Therefore, I do not recommend further preoperative testing and he may proceed with the planned operation. I recommend this risk assessment be incorporated into the overall discussion on risks and benefits of this operation. Rafaela Washington APRN.DIVER HELPER documented in this encounter [facility] 01-04-2024 Nurse Note 01/04/24 1145 Referral Information Arrived From home or self-care (one level condo with no steps to enter) Information Source Information Source patient Information Source Name Nelsy Information Source Number [phone] Contact Information Activity Specialist Name Lulu RIOS deputy county counsel's Phone Number [phone] Living Environment Lives With spouse (With Vitor, one level condo with no steps to enter) Living Arrangement and Set Up condominium Provides Primary Care For no one Primary Care Provided By self Support System Immediate family;Extended family ( and [id number]) Able to Return to Prior Arrangements yes Functional Status Patient's Functional Status Prior To This Admission? Independent Concerns With Patient Being Able To Care For Themselves At Discharge? Has Assistance (Friend, Family, Skilled Provider) Who Is Patient's Primary Contact For Discharge Planning, Education And Care For Discharge? Nelsy Employment/Financial Employed? Retired Employment/Financial Concerns no Financial Concerns none Initial Discharge Planning DME (HARBOR TUG CAPTAIN) None (Needs FWW) Anticipated discharge disposition Home with Home Health Anticipated Services at Discharge Physical Therapy;Usp Transportation Available car;family or friend will provide Assessment/Concerns to be Addressed Concerns To Be Addressed no discharge needs identified This Orthopedic Nurse Navigator met with patient this date to discuss post-surgical discharge plans. Patient states that she plans to return with family assistance and [facility] Care, and Outpatient PT. Patient needs a wheeled walker. Patient denies any other questions or needs at this time. CM to continue to follow and assist with discharge plans. [facility] 01-04-2024 History of Present illness Narrative PAT- ADDITIONAL QUESTIONS Reviewed medication list with patient, asked and added any additional medicines, vitamins, supplements and diet pills or appetite suppressants to the patient Med Review. Also Reconciled Medications from outside sources to Med Review. Patient verified Med Review is accurate. yes HISTORY OF ANGIOEDEMA IF YES, TRIGGERS? C1-esterase inhibitor (C1-INH) gene? no PATIENT HISTORY OF BLOOD CLOTS no FAMILY HISTORY OF BLOOD CLOTS OR BLOOD DISORDER no ACTIVITY TOLERANCE (MET LEVEL) >4mets CHEST PAIN (SEE ADDITIONAL CHEST PAIN QUESTIONNAIRE IF APPLICABLE) no HISTORY OF HEART CATH/STENT PLACEMENT no PATIENT HISTORY OF ANESTHESIA COMPLICATION (PONV, PROLONGED SEDATION, MALIGNANT HYPERTHERMIA, etc. ) no FAMILY HISTORY OF ANESTHESIA COMPLICATION (PONV, PROLONGED SEDATION, MALIGNANT HYPERTHERMIA, etc. ) Mother intolerant of sodium pentathol and demerol MEDICAL CLEARANCE, CARDIOLOGY CLEARANCE Jessie/Corey Washington 01/07 DIFFICULT IV PLACEMENT no LIMB RESTRICTIONS no MEDICAL IMPLANTS (DIABETIC, NERVE STIMULATORS, POWER PORTS, LOOP RECORDER, ETC) no HISTORY OF ANTIBIOTIC RESISTANT BACTERIAL INFECTION (MRSA, C-DIFF) no VISION (glasses, contacts, or other impairments) no HEARING AIDS OR ANY TROUBLE HEARING no DIFFICULTY SWALLOWING no DENTAL APPLIANCES OR PROBLEMS (dentures, partials, loose teeth, missing teeth, broken teeth, caps or crowns) Partial upper left BETA RAMAN USE no STEROIDS IN THE PAST YEAR Cortisone injection in the knee HISTORY OF BLOOD TRANSFUSION/REACTION no CULTURAL OR YAZDANISM BELIEFS THAT WILL AFFECT CARE no DIETARY RESTRICTIONS no CONCERNS FOR PERSONAL SAFETY no Have you been diagnosed with a concussion in the past 6 months? no Have you tested positive for COVID 19? Do you have any residual or terminal supervisor affects from COVID 19? no ADVANCE DIRECTIVES no IF PATIENT HAS NOT BEEN DIAGNOSED WITH SLEEP APNEA PLEASE COMPLETE STOP-BANG STOP Do you SNORE loudly (louder than talking or loud enough to be heard through closed doors)? no Has anyone OBSERVED you stop breathing during your sleep? no Do you often feel TIRED, fatigued, or sleepy during daytime? no Do you have or are you being treated for high blood PRESSURE? yes BMI more than 35kg/m2? no AGE over 50 years old? yes NECK circumference > 16 inches (40 cm)? GENDER: Male? no TOTAL SCORE 2 PT ACCEPTED REFERRAL na High risk of BRODIE: Yes 5-8 Intermediate risk of BRODIE: Yes 3-4 Low risk of BRODIE: Yes 0-2 * See DEPARTMENT OF SURGERY AND ANESTHESIA REFERRAL FOR SLEEP STUDY AND/OR PULMONARY CONSULT paper form signed by patient in chart. Verified procedure and surgery date with patient. Reviewed pt history and medications with patient. Pt was given instructions for upcoming surgery and given opportunity to ask questions. Pt verbalized understanding of instructions. documented in this encounter [facility] 01-04-2024 Instructions Luigi Lewis RN - 01/04/2024 9:00 AM EDT Images from the original note were not included. Dr Barajas's office will call you for your arrival time, 1-2 business days before your scheduled surgery. Please review your surgery checklist and bring your guide or booklet the day of surgery. Pre-Admission Testing Dept. [phone] Call if you have any changes in your medications, questions about your medication instructions or have additional health information you want added to your chart. Refer to the Pre-Op Bathing Instructions and use the wipes the night before surgery on pages 21-22. Please refer to pages 10-11 for additional medicines and supplements to avoid prior to surgery. STOP any NSAIDs (Ibuprofen, Motrin, Aleve, Advil, etc.), herbal supplements, vitamins, diet pills, appetite suppressants, energy drinks and essential oils 7 days before surgery or as instructed by your physician. *If you are prescribed any new medicines between your PAT appointment and your surgery date, please call the PAT office for specific instructions regarding you new medicines.* No alcohol during the 48-hours prior to your surgery. No illicit drugs during the 5 days prior to your surgery. Nothing by mouth after midnight except for 16 ounces of water or Gatorade/powerade which can be consumed up until you leave for the hospital. DIRECTIONS: Park in the [facility] facing [address]. Enter through the [facility] entrance and sign in at the Registration Desk at the [facility]. Thank you for allowing us the privilege to care for you! *If you are prescribed any new medicines between your PAT appointment and your surgery date, please call the PAT office for specific instructions regarding you new medicines.* Please record date and time of your medications on this sheet and bring this with you on the day of surgery. Yellow - take the day of surgery [place] - hold according to the doctor's instructions or pre-admission testing instructions Current Outpatient Medications Medication Sig Last Dose Celecoxib 200 MG capsule 200 mg, Oral, NEEDED CONTINUE, but DO NOT take the morning of surgery. Last Dose: Date Time Cholecalciferol (Vitamin D-3) 25 MCG (1000 UT) capsule Oral STOP TAKING 7 DAYS BEFORE YOUR SURGERY Last Dose: Date Time cyanocobalamin 1000 MCG tablet 1,000 mcg, Oral, DAILY STOP TAKING 7 DAYS BEFORE YOUR SURGERY Last Dose: Date Time Lisinopril 10 MG tablet 10 mg, Oral, DAILY CONTINUE, but DO NOT take the morning of surgery. Last Dose: Date Time documented in this encounter [facility] 01-04-2024 Miscellaneous Notes Addended by: ANNABEL ROGEL on: 01/02/2024 03:21 PM Modules accepted: Orders documented in this encounter [facility] 01-04-2024 Note Addended by: ANNABEL ROGEL on: 01/02/2024 03:21 PM Modules accepted: Orders [facility] 12-28-2023 History of Present illness Narrative Ortho Nurse - Established Patient Intake Room#: 1 --- [employer] Left knee pain, rates her pain a rates her pain an 8 today. NKI or fall. She has had pain for about 3-4 years and she is getting to the point where she has been walking with a limp. She has tried cortisone injections, PRP shots, formal PT and Celebrex and nothing helps with her pain. She has seen Dr. Weiner in [place] for treatment and he has told her it is time for a knee replacement. She had [address] Hollis name with a great recommendation and she is ready to schedule with him. Date: 12/28/2023 9:52 AM Patient: Liam King MR#: [id number] : 1950 Age: 73 y.o. Referring Physician: Self, Self Insurance: Payor: MEDICARE / Plan: MEDICARE A AND B / Product Type: *No Product type* / Chief Complaint Patient presents with Left Knee - Pain Visit Vitals Ht 1.549 m (5' 1) Wt 56.7 kg (125 lb) BMI 23.62 kg/m Pain 1. Are you having pain? 2. On a scale from 1-10: Recent Labs No results found for: CRP No results found for: SEDRATE No results found for: WBC, WBCCOUNT, WBCFETAL, HGB, HCT, PLATELET, MCV History No past medical history on file. No past surgical history on file. Family History: Her family history is not on file. Social History: Her reports that she has never smoked. She has never used smokeless tobacco. No history on file for alcohol use and drug use. Outpatient Medications Prior to Visit Medication Sig Dispense Refill Cholecalciferol (Vitamin D-3) 25 MCG (1000 UT) capsule Take by mouth. Lisinopril 5 MG tablet Take 1 tablet by mouth daily. No facility-administered medications prior to visit. Allergies: She is allergic to demerol hcl [meperidine] and sodium pentobarbital [pentobarbital]. HPI: Liam is a new patient here today for evaluation of left knee pain. Primary complaint is pain, impairment in the knee and a decreased quality of life secondary to her left knee pain. Her pain as been ongoing for 3-4 years and is getting worse. The pain radiates locally, not associated with numbness or tinging. She has a lot of instability with it. She has experienced locking, popping, catching and clicking. Patient is apprehensive of falling on a daily basis. The more she is on it, the more it hurts. Patient has tried cortisone and PRP injection, formal PT, and Celebrex in the past, which did not provide relief from current symptoms. She has seen Dr. Weiner in [place] for treatment and he has told her it is time for a knee replacement. Patient is here today for evaluation and to determine treatment options. Her pain is an 8 on a 10 point pain scale. PHYSICAL EXAM: This is an alert, oriented, and age-appropriate female. She is in no distress. Pleasant and cooperative. EXTREMITIES: The upper extremities have no gross deformities. Normal stability. Skin Intact. 5/5 motor. Intact sensation. Normal neurovascular status. Normal coordination. The lower extremities have no gross deformities. Normal stability. Skin Intact. 5/5 motor. Intact sensation. Normal neurovascular status. Normal coordination. Range of motion upon exam today is 0-120. Partially correctable valgus alignment. Crepitus throughout the arc of motion.Painful range of motion. Full motion of hip. No pain. No impingement. No instability. Contralateral leg has normal alignment. Full motion. No pain. No impingement. No instability. IMAGING: Plain film radiographs were reviewed. Long-standing films of mechanical axis that falls to the medial compartment of the bilateral knee. Multiple views of the knee demonstrate severe arthritis of the knee with loss of joint space, subchondral sclerosis, osteophyte formation, and [id number] contact. IMPRESSION: Severe symptomatic end-stage arthritis, left knee. PLAN: We have discussed in great detail the nature of the diagnosis, the natural history and expected progression which is likely worsening pain, instability with risks of falls, and additional joint wear and or bone loss. We have discussed the options for treatment including both conservative and operative treatments. We have discussed the risks, benefits, and alternatives to each treatment. Liam is interested in surgical management in the form of a left total knee replacement. Liam understands that the potential benefits are reduced pain, improved stability and improved function. Liam also understands that the major limb and/or life threatening risks include, but are not limited to: bleeding, infection, neurovascular injury including foot drop or paralysis, dislocation, component failure, implant loosening, ligament or tendon disruption, fracture, stiffness, chronic pain, chronic disability, need for further surgery, blood clots in the extremities or lungs, stroke, heart attack, loss of limb, and ultimately loss of life. assisted expectations, risks and general implant survivorship were also discussed. Despite these risks, the patient would like to proceed with surgical planning. Today, we will initiate the pre-surgical process including nasal MRSA screening, scheduling an appointment for [facility] and the potential surgical date, and reviewing and signing the consent forms. I have reviewed the findings of my clinical staff below and agree with their assessment. Vitals: 12/28/23 0950 Weight: 56.7 kg (125 lb) Height: 1.549 m (5' 1) Pain Recent Labs No results found for: CRP No results found for: SEDRATE No results found for: WBC, WBCCOUNT, WBCFETAL, HGB, HCT, PLATELET, MCV Past Medical History: Diagnosis Date Arthritis Essential hypertension, benign Past Surgical History: Procedure Laterality Date EXENTERATION PELVIC/GYNECOLOGIC ANTERIOR History reviewed. No pertinent family history. Social History Socioeconomic History Marital status: Tobacco Use Smoking status: Never Smokeless tobacco: Never Social Determinants of Health Financial Resource Strain: Low Risk (06/14/2018) Received from [facility] Overall Financial Resource Strain (CARDIA) Difficulty of Paying Living Expenses: Not hard at all Food Insecurity: No Food Insecurity (06/14/2018) Received from [facility] Hunger Vital Sign Worried About Running Out of Food in the Last Year: Never true Ran Out of Food in the Last Year: Never true Transportation Needs: No Transportation Needs (06/14/2018) Received from [facility] PRAPARE - Transportation Lack of Transportation (Medical): No Lack of Transportation (Non-Medical): No Physical Activity: Sufficiently Active (06/14/2018) Received from [facility] Exercise Vital Sign Days of Exercise per Week: 7 days Minutes of Exercise per Session: 60 min Stress: No Stress Concern Present (06/14/2018) Received from [facility] [place] [facility] Occupational Health - Occupational Stress Questionnaire Feeling of Stress : Not at all Social Connections: Socially Integrated (06/14/2018) Received from [facility] Social Connection and Isolation Panel [NHANES] Frequency of Communication with Friends and Family: More than three times a week Frequency of Social Gatherings with Friends and Family: Once a week Attends Bahai Services: More than 4 times per year Active Member of Clubs or Organizations: Yes Attends Club or Organization Meetings: More than 4 times per year Marital Status: Intimate Partner Violence: Not At Risk (06/14/2018) Received from [facility] Humiliation, Afraid, Rape, and Kick questionnaire Fear of Current or Ex-Partner: No Emotionally Abused: No Physically Abused: No Sexually Abused: No Current Outpatient Medications: Cholecalciferol (Vitamin D-3) 25 MCG (1000 UT) capsule, Take by mouth., Disp: , Rfl: Lisinopril 5 MG tablet, Take 1 tablet by mouth daily., Disp: , Rfl: Allergies Allergen Reactions Demerol Hcl [Meperidine] Sodium Pentobarbital [Pentobarbital] documented in this encounter [facility] 12-05-2023 History of Present illness Narrative Chief Complaint Patient presents with: Recheck: Blood pressure HPI Liam King is a 73 year old female who presents here today for recheck. At last visit patient's bp was elevated. Patient's home readings have been mildly elevated. Patient states that she does feel a little sinus pressure for the past 2 weeks. Not taking anything consistently. No fevers. No sneezing. But feels mildly stuffy. Past medical history, appointments, medications, allergies reviewed. [...] rectum and anus 08/03/2005 Hypertension, essential 01/16/2022 Low serum vitamin B12 07/25/2023 Medicare annual wellness visit, subsequent 10/25/2016 last done: 10/25/2016 Pain in left knee 05/06/2015 Renal cyst 11/26/2021 Varicose veins 05/06/2015 Previous Surgical History PAST SURGICAL HISTORY Procedure Laterality Date COLONOSCOPY 2005 COLONOSCOPY SCREENING 12/2022 FECAL OCCULT BLOOD TEST 11/08/2016 negative PAST [...] on File Prior to Visit Medication Sig celecoxib (CELEBREX) 200 mg capsule Take 1 capsule by mouth once daily. cyanocobalamin (VITAMIN B-12) 1,000 mcg tab Take 1,000 mcg by mouth once daily. lisinopril (ZESTRIL) 10 [...] GENERAL: No weight loss, malaise or fevers See HPI EXAM: BP 162/84 (BP Site: Left Arm, BP Position: Sitting, BP Cuff Size: Regular Adult) Pulse 68 Temp 36.8 C (98.2 F) Resp 16 Wt 57.6 kg (127 lb) SpO2 97% BMI 24.00 kg/m General Appearance: Well appearing, alert, in no acute distress, well-hydrated, well nourished.. Eyes: Anicteric sclera. Pupils are equally round and reactive to light. Extraocular movements are intact. . Ears: External ears normal, canals clear. Nose/Sinuses: +sinus pressure to palp. Oropharynx: Lips, mucosa, and tongue normal, teeth and gums normal, oropharynx normal. Neck: Supple, no adenopathy; thyroid symmetric, normal size, no bruits. Lungs: Lungs clear to auscultation. No wheezing, rhonchi, rales.. Heart: RRR without murmur, gallop, or rubs. No ectopy. Health Maintenance List BP Controlled (<130/80) Never done Bone Density Screening due on 12/21/2022 Advance Directive Discussion due on 05/29/2023 Behavioral Health Screening Never done Influenza Vaccine(1) due on 01/28/2024 Mammogram Screening due on 06/22/2024 Cervical Cancer Screening due on 07/10/2024 Annual PCP Team Chronic Disease Visit due on 11/05/2024 DTaP,Tdap,Td Vaccine(2 - Td or Tdap) due on 12/01/2024 Diabetes Screening due on 07/21/2026 Lipid Screening due on 07/21/2028 Hepatitis C Screening Completed Colorectal Cancer Screening Discontinued RSV Vaccine Discontinued Shingrix Vaccine Discontinued Covid-19 Vaccine Discontinued Pneumococcal Vaccine: 65+ Discontinued Data reviewed ASSESSMENT/PLAN: 1. Hypertension, essential - ICD9: 401.9, ICD10: I10 (primary diagnosis) - Uncontrolled - Increase lisinopril to 15mg. - Recommend home blood pressure monitoring, to bring results to next visit - Encouraged sodium restriction, DASH or Mediterranean diet - Recommend regular aerobic exercise 2. Bacterial sinusitis - ICD9: 473.9, 041.9, ICD10: J32.9, B96.89 - Will begin treatment with as per antibiotic as written, see orders - Supportive care with plenty of fluids, rest, and analgesia prn. Keep follow up as scheduled. Marilyn Hair PA-C documented in this encounter [facility] 11-06-2023 History of Present illness Narrative Chief Complaint Patient presents with: Follow Up HPI Liam King is a 73 year old female who presents here today for follow up. Patient was seen on 10/05/2023. How is left knee feeling? Patient indicated that Aleve Arthritis seems to work. Patient is also taking the Celebrex. She has tried tylenol arthritis in the past with no improvement Patient does have [facility] end of November 2023. Patient has known sever OA of the left knee and needs to have knee replacement. Patient was seeing ortho with [facility] and last seen 11/2022, was placed on Mobic 15 mg a day and thinks it may of helped some. She went and saw [facility] and had her have a blood draw and then spun down and injected into the left knee. She had no relief. She is planing to consider getting a TKA in the fall and would lik to see if she can take something to help lesson the pain and get her through the summer. Patient's pain is unchanged. Past medical history, appointments, medications, allergies reviewed. [...] rectum and anus 08/03/2005 Hypertension, essential 01/16/2022 Low serum vitamin B12 07/25/2023 Medicare annual wellness visit, subsequent 10/25/2016 last done: 10/25/2016 Pain in left knee 05/06/2015 Renal cyst 11/26/2021 Varicose veins 05/06/2015 Previous Surgical History PAST SURGICAL HISTORY Procedure Laterality Date COLONOSCOPY 2005 COLONOSCOPY SCREENING 12/2022 FECAL OCCULT BLOOD TEST 11/08/2016 negative PAST [...] on File Prior to Visit Medication Sig celecoxib (CELEBREX) 200 mg capsule Take 1 capsule by mouth once daily. cyanocobalamin (VITAMIN B-12) 1,000 mcg tab Take 1,000 mcg by mouth once daily. lisinopril (ZESTRIL) 10 [...] Review of Symptoms REVIEW OF SYSTEMS See HPI EXAM: BP 147/88 (BP Site: Left Arm, BP Position: Sitting, BP Cuff Size: Regular Adult) Pulse 73 Resp 16 Wt 57.2 kg (126 lb) BMI 23.81 kg/m Last 5 Encounter Wt Readings: Date: Wt: 11/06/2023 57.2 kg (126 lb) 10/31/2023 57.6 kg (127 lb) 10/05/2023 57.2 kg (126 lb) 08/11/2023 57.6 kg (127 lb) 07/25/2023 58.5 kg (129 lb) Last 5 Encounter BP Readings: Date: BP: 11/06/2023 147/88[Home BP machine[ 10/31/2023 132/80 10/05/2023 138/80 08/11/2023 142/76 07/25/2023 132/80 General Appearance: Well appearing, alert, in no acute distress, well-hydrated, well nourished.. Musculoskeletal: no swelling noted in the left knee and not overly enlarged from the Arthritis.. Health Maintenance List BP Controlled (<130/80) Never done Bone Density Screening due on 12/21/2022 Advance Directive Discussion due on 05/29/2023 Behavioral Health Screening Never done Influenza Vaccine(Season Ended) due on 01/28/2024 Mammogram Screening due on 06/22/2024 Cervical Cancer Screening due on 07/10/2024 Annual PCP Team Chronic Disease Visit due on 10/04/2024 DTaP,Tdap,Td Vaccine(2 - Td or Tdap) due on 12/01/2024 Diabetes Screening due on 07/21/2026 Lipid Screening due on 07/21/2028 Hepatitis C Screening Completed Colorectal Cancer Screening Discontinued RSV Vaccine Discontinued Shingrix Vaccine Discontinued Covid-19 Vaccine Discontinued Pneumococcal Vaccine: 65+ Discontinued Data reviewed A/P ASSESSMENT/PLAN: 1. Hypertension, essential - ICD9: 401.9, ICD10: I10 (primary diagnosis) - Uncontrolled - Recommend home blood pressure monitoring, to bring results to next visit - Encouraged sodium restriction, DASH or Mediterranean diet - Recommend regular aerobic exercise - will continue current meds and have her f/u in a month 2. Chronic pain of left knee - ICD9: 719.46, 338.29, ICD10: M25.562, G89.29 - patient looking at getting a knee replacement in the fall. She was given the name of Dr. Jin Kilpatrick for her TKA and will let me know if she needs a referral sent. Will change the Celebrex to 200 mg twice a day. Requested Prescriptions Signed Prescriptions Disp Refills celecoxib (CELEBREX) 200 mg capsule 60 capsule 1 Sig: Take 1 capsule by mouth once daily. F/u in Dec for medicare extensive. . Bhanu Meng MD documented in this encounter [facility] 10-31-2023 History of Present illness Narrative Liam King presents for LEEP. Indication: CIN2. VITALS: BP 138/88 Pulse 68 Wt 127 lb (57.6kg) SpO2 97% test: n/a UNIVERSAL PROTOCOL / SAFETY CHECKLIST Procedure to be Performed: LEEP Sign In: A Moment of CARE was completed. Personnel directly involved with the procedure wore the appropriate PPE (Personal Protective Equipment). Patient/Surrogate Stated/Verified: PATIENT VERIFIED(optional for EMERGENT procedures): Patient name, Date of , Relevant allergies, and The intended procedure Time Out Communication: Intended patient and procedure match the source documents. Consent documented and matches the intended procedure. Relevant labs, photos, and/or imaging studies have been reviewed. Medications required for procedure verified. Sign Out: SIGN OUT (optional for EMERGENT procedures): All specimen containers correctly labeled. All instruments, equipment, possible retained foreign bodies accounted for. Post-procedure follow-up management communicated and Plan of Care Visit completed when applicable. PROCEDURE NOTE: Cervix anesthetized with 15 mL lignospan (2% lidocaine and epinephrine) 1:100,000 (1.8mL/vial) using a 27gauge Spinal needle. LEEP performed using large Mello cone loop(s). ECC done. Hemostasis was achieved with Monsel's solution, pressure, and electrocautery. Procedure Summary: Patient tolerated procedure well. ASSESSMENT: CIN2. PLAN: Specimens labeled and sent to Pathology. Will notify patient of results in 1-2 weeks. Post-procedure instructions reviewed and written material given to the patient. Saurabh Wetzel MD documented in this encounter [facility] 10-31-2023 Instructions Shraddha Turner MA - 10/31/2023 10:58 AM EDT YOUR RECOVERY It may take a few weeks for your cervix to heal. While your cervix heals, you may have: Vaginal bleeding (less than a normal menstrual period) Mild cramping A brown-black vaginal discharge (similar to coffee grounds) which is a result of the paste used to help stop bleeding from the procedure Do NOT put anything in the vagina for 4 weeks after your LEEP (Loop Electrosurgical Excision Procedure). This includes: tampons douches and refraining from having sexual intercourse If you have any discomfort, you may take an over the counter pain medication (motrin, advil, ibuprofen, tylenol, etc). If this does not relieve your discomfort, contact the office. It is okay to wear a sanitary pad until the discharge and spotting stops. RISKS Although problems seldom occur with LEEP, there can be some complications. You may feel faint during and shortly after the procedure as well as have some bleeding and vaginal discharge after the procedure. There is also a risk of infection after the procedure. These complications are rare and can be easily treated. You should contact you doctor is you have any of the following: Heavy bleeding (more than your normal period) Bleeding with clots Severe abdominal pain Fever (more than 100.4F) Foul smelling vaginal discharge RESULTS We will have the results of your biopsy in 1-2 weeks. If you do not hear the results of your LEEP after 2 weeks, please contact your physician's office. STAYING HEALTHY After the procedure, you will need to see your doctor for follow up visits during the year. At these visits your doctor will check the health of your cervix with a pap smear. After three normal pap smears, your doctor will allow you to return to having exams once a year. If you have another abnormal pap smear, you may need closer follow up for longer or you may need additional treatment. By making a few lifestyle changes after the procedure, you can help protect the health of your cervix: Have regular pelvic exams and pap smears as ordered by your doctor. Stop smoking as smoking increases your risk of developing a cancer of the cervix If you have more than one sexual partner, limit your number of partners and use condoms to reduce your risks of STDs. If you have any additional questions or concerns, please do not hesitate to contact the office. documented in this encounter [facility] 10-12-2023 Hospital Discharge instructions Vidal Sanchez MD - 10/12/2023 9:26 PM EDT Recommend Mucinex and Flonase to be taken as instructed. Both of those are available [id number]. The following attachments cannot be sent through Care Everywhere.Seasonal Allergies Discharge Instructions (Tanzanian)documented in this encounter [facility] Work Phone: 10-12-2023 Emergency department Note 73-year-old female chief complaint of watery eyes runny nose scratchy throat and sneezing since yesterday. Does not feel like a sinus infection. Review of Systems Physical Exam Vitals and nursing note reviewed. [...] Mood and Affect: Mood normal. Labs Reviewed - No data to display No orders to display Procedures Medical Decision Making 73-year-old female chief complaint of watery eyes runny nose scratchy throat and sneezing since yesterday. Does not feel like a sinus infection to her. No significant tenderness over the facial sinuses. By her description this sounds primarily allergic. Will give a dose of 12 mg p.o. dexamethasone and recommend [id number] Flonase for 3 days and Mucinex. Diagnoses as of 10/12/232125 Allergic rhinitis, unspecified seasonality, unspecified trigger Vidal Sanchez MD 10/12/232125 documented in this encounter [facility] Work Phone: 10-12-2023 Physician Emergency department Note 73-year-old female chief complaint of watery eyes runny nose scratchy throat and sneezing since yesterday. Does not feel like a sinus infection. Review of Systems Physical Exam Vitals and nursing note reviewed. [...] Mood and Affect: Mood normal. Labs Reviewed - No data to display No orders to display Procedures Medical Decision Making 73-year-old female chief complaint of watery eyes runny nose scratchy throat and sneezing since yesterday. Does not feel like a sinus infection to her. No significant tenderness over the facial sinuses. By her description this sounds primarily allergic. Will give a dose of 12 mg p.o. dexamethasone and recommend [id number] Flonase for 3 days and Mucinex. Diagnoses as of 10/12/232125 Allergic rhinitis, unspecified seasonality, unspecified trigger Vidal Sanchez MD 10/12/232125 [facility] Work Phone: 10-05-2023 Instructions Bhanu Meng MD - 10/05/2023 10:21 AM EDT Please bring in your BP cuff at next appt. Check your blood pressure the day prior and morning of the appt. documented in this encounter [facility] 10-05-2023 History of Present illness Narrative Chief Complaint Patient presents with: Knee Pain: Was taking Diclofenac. Causing severe diarrhea. Stopped med about 3 weeks ago. GI issues have subsided. Started on Ketorolac per . HPI Liam King is a 73 year old female who presents here today for left knee pain. Patient is here for left knee pain. Patient has known sever OA of the left knee and needs to have knee replacement. Patient was seeing ortho with [facility] and last seen 11/2022, was placed on Mobic 15 mg a day and thinks it may of helped some. She went and saw [facility] and had her have a blood draw and then spun down and injected into the left knee. She had no relief. She is planing to consider getting a TKA in the fall and would lik to see if she can take something to help lesson the pain and get her through the summer. Past medical history, appointments, medications, allergies reviewed. [...] rectum and anus 08/03/2005 Hypertension, essential 01/16/2022 Low serum vitamin B12 07/25/2023 Medicare annual wellness visit, subsequent 10/25/2016 last done: 10/25/2016 Pain in left knee 05/06/2015 Renal cyst 11/26/2021 Varicose veins 05/06/2015 Previous Surgical History PAST SURGICAL HISTORY Procedure Laterality Date COLONOSCOPY 2005 COLONOSCOPY SCREENING 12/2022 FECAL OCCULT BLOOD TEST 11/08/2016 negative PAST [...] on File Prior to Visit Medication Sig cyanocobalamin (VITAMIN B-12) 1,000 mcg tab Take 1,000 mcg by mouth once daily. lisinopril (ZESTRIL) 10 [...] Review of Symptoms REVIEW OF SYSTEMS See HPI EXAM: BP 156/77 Pulse 75 Ht 154.9 cm (5' 1) Wt 57.2 kg (126 lb) BMI 23.81 kg/m BP 158/88 Pulse 75 Ht 154.9 cm (5' 1) Wt 57.2 kg (126 lb) BMI 23.81 kg/m BP 138/80 Pulse 75 Ht 154.9 cm (5' 1) Wt 57.2 kg (126 lb) BMI 23.81 kg/m Few days ago her BP at home was 130's/80's General Appearance: Well appearing, alert, in no acute distress, well-hydrated, well nourished.. Health Maintenance List BP Controlled (<130/80) Never done Bone Density Screening due on 12/21/2022 Advance Directive Discussion due on 05/29/2023 Behavioral Health Screening Never done Influenza Vaccine(Season Ended) due on 01/28/2024 Mammogram Screening due on 06/22/2024 Annual PCP Team Chronic Disease Visit due on 07/25/2024 DTaP,Tdap,Td Vaccine(2 - Td or Tdap) due on 12/01/2024 Diabetes Screening due on 07/21/2026 Lipid Screening due on 07/21/2028 Hepatitis C Screening Completed Colorectal Cancer Screening Discontinued RSV Vaccine Discontinued Shingrix Vaccine Discontinued Covid-19 Vaccine Discontinued Pneumococcal Vaccine: 65+ Discontinued Data reviewed Results XR KNEE GENERAL 4V AP BOTH/PA BOTH/LAT/MERC BILATERAL (Acc#[id number]) (Order [id number]) Patient Info Patient Name Sex Mark RamirezchinaLiam ([id number]) Female 1950 12/25/2022 9:24 AM - Radiology, [place] In Impression IMPRESSION: Degenerative changes as discussed Multiple Resaw Operator: ASHLEY Transcribe Date/Time: Dec 25 2022 9:21A Dictated by : GRACE CORTES DO This examination was interpreted and the report reviewed and electronically signed by: GRACE CORTES DO on Dec 25 2022 9:22AM EST Results-Findings * * *Final Report* * [...] seen. Severe narrowing of the medial compartment A/P ASSESSMENT/PLAN: 1. Arthritis of both knees - ICD9: 716.96, ICD10: M17.0 (primary diagnosis) - will try celebrex 200 mg a day - f/u in a month - encouraged water aerobics. 2. Hypertension, essential - ICD9: 401.9, ICD10: I10 - Uncontrolled - Continue current medications - Recommend home blood pressure monitoring, to bring results to next visit - Encouraged sodium restriction, DASH or Mediterranean diet - Recommend regular aerobic exercise Requested Prescriptions Signed Prescriptions Disp Refills celecoxib (CELEBREX) 200 mg capsule 30 capsule 1 Sig: Take 1 capsule by mouth once daily. - will see how her BP is in a month . Patient to bring in her BP cuff with her. Will also see if the celebrex has helped. Bhanu Meng MD documented in this encounter [facility] 09-06-2023 Miscellaneous Notes Lidya Champion MD [facility] General Surgery Pool Please let the patient know that the note speaks of we had discussed referral for biopsy which she did not wish to have performed and she declined the biopsy not declined another mammogram. We both thought it was reasonable not to perform a biopsy and wait for 6 months to see if it is stable or changes. Her mammogram was supposed to be in 6 months not right now. Further, there are the ultrasound images scanned into the system but not the mammogram images. I did not realize that we were responsible for obtaining outside comparison films from radiology department. Please have the [facility] mammogram films imported into the [facility] system. Thanks Demarco [facility] [place] in [place], spoke with Lily in radiology. She is pushing the 06/22/2023 mammogram images into the [email or web address] system. Spoke with Liam. She advised that she is okay with waiting until November 2023 to have the repeat mammogram and ultrasound completed and would like to have it done at [facility], since they will have the images in [email or web address] by that time. She is requesting that Dr. Champion remove the patient declined referral from her consultation note of 07/21/23. I advised that he cannot alter his note, but he could create an addendum, stating that they had discussed either doing a biopsy or repeating the imaging in 6 months and had agreed on the imaging, which was an acceptable choice. She asked that I cancel the office visit that she had scheduled for 09/21/23, since I had spoken with her, she did not feel the need to come into the office at this time. Giana Castillo RN Patient phones upset and wanting to talk to Dr Champion. Patient checked in for her mammogram on 09/05/23, she was informed by Juve that the office could not complete the mammogram because the office could not locate the comparison images. Patient is upset having this cancelled. Patient requested this caregiver alter her last office visit note that states she declined a mammogram. I explained that is a doctors note and I am unable to alter it. Patient was transferred to chief crew scheduler to make an appointment with Dr Champion as she requested. Marla Watson MA documented in this encounter [facility] 08-31-2023 Miscellaneous Notes Patient called and LEEP scheduled. Mary Villalpando RN Patient notified. She plans to call back next week to schedule. Wants to get through the holiday first. Lastline message sent with additional information. Marla Fernandez RN Left message to call office. Mary Villalpando RN ----- Message from Saurabh Wetzel MD sent at 08/22/2023 1:04 PM EDT ----- MARY 2 - recommend in office LEEP. OK to schedule procedure or schedule a visit to discuss further. Saurabh Wetzel MD documented in this encounter [facility] 08-11-2023 History of Present illness Narrative Nelsy is a 72 year old Female who presents today for a colposcopy. The patient's last pap smear was ASCUS with positive HPV from June 2023. Patient has a history of abnormal pap: No. The patient has had prior treatment: none. test: n/a UNIVERSAL PROTOCOL / SAFETY CHECKLIST Procedure to be Performed: colposcopy with possible biopsy Sign In: A Moment of CARE was completed. Personnel directly involved with the procedure wore the appropriate PPE (Personal Protective Equipment). Patient/Surrogate Stated/Verified: PATIENT VERIFIED(optional for EMERGENT procedures): Patient name, Date of , Relevant allergies, and The intended procedure Time Out Communication: Intended patient and procedure match the source documents. Consent documented and matches the intended procedure. Relevant labs, photos, and/or imaging studies have been reviewed. Sign Out: SIGN OUT (optional for EMERGENT procedures): All specimen containers correctly labeled. All instruments, equipment, possible retained foreign bodies accounted for. Post-procedure follow-up management communicated and Plan of Care Visit completed when applicable. Darline Bowen LPN PROCEDURE: EXTERNAL GENITALIA: Normal in appearance without lesions VAGINA: Normal in appearance without lesions CERVIX: Speculum placed in vagina and excellent visualization of cervix achieved. Cervix swabbed x 3 with 3% acetic acid solution. Cervix grossly normal. Squamocolumnar junction visualized. Possible acetowhite changes noted. BIOPSY: Done at 3:00, 6:00, 9:00, and 12:00 ECC: done HEMOSTASIS: Obtained with silver nitrate and pressure Procedure Summary: Patient tolerated procedure well. ASSESSMENT: HPV effect PLAN: Specimens labeled and sent to Pathology. Will notify patient of results in 1-2 weeks. Post-procedure instructions reviewed and written material given to the patient. Saurabh Wetzel MD documented in this encounter [facility] 08-11-2023 Instructions Darline Bowen LPN - 08/11/2023 1:06 PM EDT YOUR RECOVERY It may take a few weeks for your cervix to heal. While your cervix heals, you may have: - Vaginal bleeding (less than a normal menstrual period) - Mild cramping - A brown-black vaginal discharge (similar to coffee grounds) which is a result of the paste used to help stop bleeding from the procedure Do NOT put anything in the vagina for 1 week after your colposcopy if your doctor does a biopsy of your cervix. This includes sex, tampons, and douches. If you have any discomfort, you may take an over the counter pain medication (motrin, advil, ibuprofen, tylenol, etc). If this does not relieve your discomfort, contact your doctor's office for a prescription strength pain medication. It is okay to wear a sanitary pad until the discharge and spotting stops. RISKS Although problems seldom occur with colposcopy, there can be some complications. You may feel faint during and shortly after the procedure as well as have some bleeding and vaginal discharge after the procedure. There is also a risk of infection after the procedure. These complications are rare and can be easily treated. You should contact you doctor is you have any of the following: - Heavy bleeding (more than your normal period) - Bleeding with clots - Severe abdominal pain - Fever (more than 100.4F) - Foul smelling vaginal discharge RESULTS If a biopsy was taken, we will have the results of your biopsy in 1-2 weeks. If you do not hear the results of your biopsy after 2 weeks, please contact your physicians office for the results. Depending on the biopsy results, your doctor will determine your follow up plan which may include further testing or treatments. STAYING HEALTHY After the procedure, you will need to see your doctor for follow up visits during the year. At these visits your doctor will check the health of your cervix with a pap smear. After three normal pap smears, your doctor will allow you to return to having exams once a year. If you have another abnormal pap smear, you may need closer follow up for longer or you may need additional treatment. By making a few lifestyle changes after the procedure, you can help protect the health of your cervix: - Have regular pelvic exams and pap smears as ordered by your doctor. - Stop smoking as smoking increases your risk of developing a cancer of the cervix - If you have more than one sexual partner, limit your number of partners and use condoms to reduce your risks of STDs. If you have any additional questions, please contact your doctor's office. documented in this encounter [facility] 08-07-2023 Miscellaneous Notes Patient left voicemail in regards to the breast biopsy ordered by Dr. Champion. Patient stated she received a call stating her procedure is 08/11/2023. However, that date isn't going to work for that patient and is requesting to have it done the week after sometime in the morning if possible. Email sent to Drake to reschedule accordingly Suzanne Cabrera Home Demonstrator Patient stated when she seen PCP she was made aware of Joanne office note stating she denied referral for biopsy patient stated she did not deny the referral when she spoke to Akira in office and stated she would be willing to go to [place] as her daughter lives there Patient is wanting that part taken out of her chart as it portrays her to be noncompliant Patient feels there was a miscommunication and would like it removed Please review Suzanne Cabrera Home Demonstrator Per Dr. Champion patient to have rightultrasound breast biopsy. Per protocol email sent to Nuzhat and Erin to have radiologist review and call patient to schedule accordingly. Patient aware of steps needed to be completed prior to scheduling. Patient given my direct line for any further assistance Suzanne Cabrera Home Demonstrator Nelsy called in stated is willing to go to [place] now for the biopsy that was discussed at last visit on 07/21/[address] Champion. Please review and advise. Thank you. After order is placed, patient can be scheduled. Donna Rico LPN August 01, 2023 11:40 AM Effie Delacruz LPN to Lidya Champion MD 07/24/23 11:36 AM Patient seen 07/21/23- PLAN: I recommended referral to breast imaging for biopsy. The patient declined referral and wanted 6 month follow up mammogram and ultrasound. I will order follow up mammogram and ultrasound in the [facility] system. SHe should continue to perform a self breast exam and if she notes any changes should follow up immediately Effie Delacruz LPN July 24, 2023 11:35 AM Patient was calling to schedule consult to breast imagining please place order and call patient to schedule. documented in this encounter [facility] 07-26-2023 Miscellaneous Notes Patient notified of results and provider's instructions. Patient verbalizes understanding. Ada Tipton RN LM for patient to contact office. Meenakshi Cardozo MA Left message for patient to contact office. Michael Wetzel MA Let patient know her folate was ok. Her B12 is low. Advise her to start taking OTC B12 1000 mcg one a day and will see if the hand and foot tingling improves. documented in this encounter [facility] 07-25-2023 Instructions Bhanu Meng MD - 07/25/2023 9:54 AM EST You can take tylenol arthritis along with the diclofenac to help with the knee pain. You can also take glucosamine with chondroitin 1200/1500 mg a day or try tumeric or even both. Please get labs and urine test done on or after 01/12/2024 prior to your next visit. documented in this encounter [facility] 07-25-2023 History of Present illness Narrative Chief Complaint Patient presents with: F/U 6 months HPI Liam King is a 72 year old female who presents here today for 6 month follow up. Patient with hx of HTN, elevated glucose, osteoporosis, and those as reviewed below. Any new concern today? Patient indicated has left knee pain but is seeing [facility]. Any recent ER/hospital visits? Patient was seen in the hospital on 05/21/2023 for c/o epigastric burning. CBC, CMP, Lipase and Trop were all ok. EKG showed no acute changes. Patient was given omeprazole and symptoms improved. Patient was on omeprazole for a week and then stopped and has not had a repeat of symptoms since. May have mild GERD on occasion. Patient has seen Dr. Champion for recent abnormal mammograms. Will be seeing the breast imaging center in the near future. 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 [...] SURGICAL HISTORY Procedure Laterality Date COLONOSCOPY 2005 COLONOSCOPY SCREENING 12/2022 FECAL OCCULT BLOOD TEST 11/08/2016 negative PAST [...] GENERAL: No weight loss, malaise or fevers RESPIRATORY: Negative for cough, hemoptysis, wheezing, COPD, dyspnea or shortness of breath CARDIOVASCULAR: Negative for chest pain, leg swelling, hypertension, CHF or palpitations GI: No nausea, vomiting, or diarrhea and See HPI MUSCULOSKELETAL: has pain in her knees. Recent injection did not help. ENDOCRINE: Negative for cold or heat intolerance, polyuria, polydipsia and goiter NEURO: No history of headaches, syncope, paralysis, seizures or tremors. Has been getting a tingling sensation in her hands and feet that comes and goes over the past year. Not awoken from sleep with it. EXAM: BP 148/94 (BP Site: Left Arm, BP Position: Sitting, BP Cuff Size: Regular Adult) Pulse 82 Resp 16 Wt 58.5 kg (129 lb) BMI 24.37 kg/m BP 132/80 Pulse 82 Resp 16 Wt 58.5 kg (129 lb) BMI 24.37 kg/m Last 15 Encounter Wt Readings: Date: Wt: 07/25/2023 58.5 kg (129 lb) 07/21/2023 58.1 kg (128 lb) 07/10/2023 58.1 kg (128 lb) 06/29/2023 58.1 kg (128 lb) 06/23/2023 59 kg (130 lb) 02/20/2023 59 kg (130 lb) 01/20/2023 58.5 kg (129 lb) 11/10/2022 58.1 kg (128 lb) 08/23/2022 57.2 kg (126 lb) 08/12/2022 58.1 kg (128 lb) 07/18/2022 58.1 kg (128 lb) 12/23/2021 57.6 kg (127 lb) 11/26/2021 56.2 kg (124 lb) 11/23/2021 56.7 kg (125 lb) 10/22/2021 56.2 kg (124 lb) General Appearance: Well appearing, alert, in no acute distress, well-hydrated, well nourished.. Neck: Supple, no adenopathy; thyroid symmetric, normal size, no bruits. Lungs: Lungs clear to auscultation. No wheezing, rhonchi, rales.. Heart: RRR without murmur, gallop, or rubs. No ectopy. Abdomen: Normal abdominal exam, Abdomen soft, non-tender. Bowel sounds normal. No masses, organomegaly. Extremities: No deformities, edema, skin discoloration, . Good capillary refill. . Peripheral Pulses: Normal. Neurologic: Gait normal. Sensation to light touch intact. Tanel's and Phalan's testing were negative.. Health Maintenance List Covid-19 Vaccine(1) Never done BP Controlled (<130/80) Never done Shingrix Vaccine(1 of 2) Never done RSV Vaccine(1 - 1-dose 60+ series) Never done Pneumococcal Vaccine: 65+(1 of 1 - PCV) Never done Advance Directive Discussion due on 05/29/2023 Depression Assessment due on 05/29/2023 Influenza Vaccine(1) due on 11/26/2023 Mammogram Screening due on 06/22/2024 Annual PCP Team Chronic Disease Visit due on 06/29/2024 DTaP,Tdap,Td Vaccine(2 - Td or Tdap) due on 12/01/2024 Diabetes Screening due on 07/21/2026 Lipid Screening due on 07/21/2028 Bone Density Screening Completed Hepatitis C Screening Completed Colorectal Cancer Screening Discontinued Data reviewed Component Latest Ref Rng & Units 07/18/2022 01/16/2023 07/21/2023 Protein, Total 6.3 - 8.0 g/dL 7.2 6.7 6.7 Albumin 3.9 - 4.9 g/dL 4.2 4.2 4.2 Calcium 8.5 - 10.2 mg/dL 10.1 10.1 9.7 Bilirubin, Total 0.2 - 1.3 mg/dL 0.5 0.7 0.7 Alkaline Phosphatase 34 - 123 U/L 85 79 76 AST 13 - 35 U/L 48 (H) 36 (H) 26 ALT 7 - 38 U/L 57 (H) 37 23 Glucose 74 - 99 mg/dL 98 102 (H) 109 (H) BUN 7 - 21 mg/dL 16 21 16 Creatinine 0.58 - 0.96 mg/dL 0.81 0.68 0.77 Sodium 136 - 144 mmol/L 143 142 142 Potassium 3.7 - 5.1 mmol/L 4.3 3.9 4.4 Chloride 97 - 105 mmol/L 108 (H) 107 (H) 108 (H) CO2 22 - 30 mmol/L 26 25 26 Anion Gap 9 - 18 mmol/L 9 10 8 (L) eGFR >=60 mL/min/1.73m 78 93 82 Total Cholesterol, Nonfasting <200 mg/dL 190 219 (H) 235 (H) Triglycerides, Nonfasting <150 mg/dL 102 280 (H) 171 (H) HDL Cholesterol, Nonfasting >39 mg/dL 37 (L) 36 (L) 37 (L) LDL Cholesterol, Nonfasting <100 mg/dL 133 (H) 127 (H) 164 (H) Non HDL Cholesterol, Nonfasting <130 mg/dL 153 (H) 183 (H) 198 (H) VLDL Cholesterol, Nonfasting <30 mg/dL 20 56 (H) 34 (H) Total Chol/HDL Ratio, Nonfasting <5.10 mg/dL 5.14 (H) 6.08 (H) 6.35 (H) LDL/HDL Ratio, Nonfasting <2.54 mg/dL 3.59 (H) 3.53 (H) 4.43 (H) Hemoglobin A1C 4.3 - 5.6 % 5.7 (H) 5.6 5.9 (H) Estimated Average Glucose mg/dL 117 114 123 TSH 0.270 - 4.200 mIU/L 1.160 1.640 Vitamin D 25 Hydroxy 31.0 - 80.0 ng/mL 37.9 A/P ASSESSMENT/PLAN: 1. Hypertension, essential - ICD9: 401.9, ICD10: I10 (primary diagnosis) - Controlled - Continue current medications - Recommend home blood pressure monitoring, to bring results to next visit - Encouraged sodium restriction, DASH or Mediterranean diet - Recommend regular aerobic exercise 2. Elevated fasting glucose - ICD9: 790.21, ICD10: R73.01 - patient to work on improved diet and discussed. 3. Arthritis of both knees - ICD9: 716.96, ICD10: M17.0 - encouraged physical activity and using tylenol arthritis and/or trying 4. Paresthesia - ICD9: 782.0, ICD10: R20.2 Check - VITAMIN B12 BLOOD - FOLATE SERUM If labs ok will discuss getting NCS/EMGs. I spent a total of 63 minutes on the date of the service which included preparing to see the patient, [id number] patient care, completing clinical documentation, performing a medically appropriate examination, counseling and educating the patient/family/caregiver and ordering medications, tests, or procedures. F/u in 6 months extensive check CMP, Lipid, UA, A1c, CBC and TSH prior. Bhanu Meng MD documented in this encounter [facility] 07-23-2023 History of Present illness Narrative HISTORY AND PHYSICAL - BREAST COMPLAINT Liam King 1950 REFERRING PHYSICIAN: Rafaela Washington APRN.* CHIEF COMPLAINT: abnormal breast imaging HPI: The patient is a 72 year old female with a complaint of an abnormal mammogram. The patient had a mammogram on June 22, 2023 which demonstrated: COMPARISON: Digital mammogram dated 01/15/2020 FINDINGS: CC and MLO 2D digital mammograms and digital breast tomosynthesis images were obtained of the bilateral breasts. 3-D volume images were reconstructed in 4 views at an independent workstation as 1 mm slices through the breasts in both the CC and MLO projections. Density: There are areas of scattered fibroglandular tissue. A well-defined ovoid mass is seen in the far posterior 6:00 position of the right breast, increased in size from prior studies. No additional new or enlarging mass or focal asymmetry is identified. No suspicious microcalcifications or foci of architectural distortion are seen. She then had follow up ultrasound on June 26, 2023 at [facility] which demonstrated: A [id number] hypoechoic irregular nodule at the 7 oclock position 5cm from the nipple The patient denies a history of breast masses. She does not perform a self breast exam routinely. She notes no skin changes. She denies nipple discharge. She notes no axillary masses. She notes no family history of breast problems. She notes no significant breast trauma or breast difficulties in the past. The patient is being seen by me today at the request of Rafaela Washington APRN.* my opinion and advice regarding abnormal breast imaging. PAST MEDICAL HISTORY Diagnosis Date Age-related osteoporosis [...] SURGICAL HISTORY Procedure Laterality Date COLONOSCOPY 2005 COLONOSCOPY SCREENING 12/2022 FECAL OCCULT BLOOD TEST 11/08/2016 negative PAST SURGICAL HISTORY OF 1977 varicose veins stripped bilateral. PAST SURGICAL HISTORY OF sclerotherapy several times PAST SURGICAL HISTORY OF 2007 anterior vaginal repair prolapse Current Outpatient Medications Medication Sig Dispense Refill lisinopril (ZESTRIL) 10 mg tablet Take 1 tablet by mouth once daily. 30 tablet 5 diclofenac, EC, (VOLTAREN) 75 mg EC tablet Take 1 tablet by mouth twice daily. For pain/inflammation. Take with food. 60 tablet 5 Cholecalciferol, Vitamin D3, 1,000 unit cap Take 2,000 Units by mouth once daily. 0 No current facility-administered medications for this visit. ALLERGIES: Patient has no known allergies. PERSONAL HISTORY: Social History Tobacco Use Smoking status: Never Smokeless tobacco: Never Vaping Use Vaping Use: Never used Substance Use Topics Alcohol use: Yes Comment: ocassional wine Drug use: Never FAMILY HISTORY: FAMILY HISTORY Problem Relation Age of Onset Alzheimer's Disease Father Diabetes Paternal Grandmother Stroke Maternal Grandfather Cancer Mother smoker Thyroid Mother REVIEW OF SYMPTOMS: The review of systems data was entered by the nurse and reviewed by me Nursing Notes: Donna Rico LPN 07/21/2023 8:45 AM Signed REVIEW OF SYSTEMS: General: The patient denies fatigue, denies weight loss, denies weight gain, denies feeling hot, and denies feelings of cold. Eyes: The patient denies glaucoma, denies eye injury/surgery, does not wear glasses or contacts. Ear/Nose/Throat: The patient notes allergies, denies hayfever, denies ear infections, and denies bloody noses. Cardiovascular: The patient denies chest pain, denies heart disease, denies high blood pressure,denies cardiac stent, denies prior heart attack, denies irregular heart beat, notes high cholesterol, denies poor circulation, denies heart failure, other cardiac issues, denies claudication, denies cold feet, denies peripheral arterial stent. Respiratory: The patient denies tuberculosis, denies pneumonia, denies frequent cough, denies pulmonary embolism, denies shortness of breath, and denies coughing up blood. Gastrointestinal: The patient denies difficulty swallowing, denies acid reflux, denies ulcers, denies vomiting, denies jaundice/hepatitis, denies gallbladder problems, denies black or tarry stools, denies hemorrhoids, denies bleeding from rectum, denies diverticulitis, denies constipation, denies diarrhea, denies loss of stool control, and denies hernias. Kidney/Bladder: The patient denies kidney stones, denies urine infections, and denies bloody urine. Skin: The patient denies a history of skin cancer, denies bleeding/changing moles, and denies a history of skin rash. Neurologic: The patient denies a history of epilepsy/convulsions, denies headaches, denies head/spinal injuries, and denies stroke/TIA. Psychiatric: The patient denies psychiatric medications, denies depression, and denies voices, denies substance abuse. Endocrine: The patient denies thyroid disorders, denies diabetes, and denies hormonal problems. Hematologic: The patient denies a history of bruising, denies bleeding, and denies anemia, denies blood clots. Infections: The patient denies a history of measles and mumps, denies rheumatic fever, and denies sexually transmitted diseases. Musculoskeletal: The patient denies back pain/injury, denies back problems, denies sciatica, denies knee/foot trouble, denies arthritis, or denies gout. When was patient's last Mammogram screening? 2023 Last Colonoscopy: 12/2022 Donna Rico LPN PHYSICAL EXAMINATION: General: The patient is 72 year old female, well nourished, well hydrated in no acute distress. The patient is oriented to time, place, and person. VITALS: Blood pressure 130/72, pulse 106, temperature 37 C (98.6 F), height 154.9 cm (5' 1), weight 58.1 kg (128 lb), SpO2 95%. Body mass index is 24.19 kg/m . HEENT: Normal cephalic, ataumatic, pupils are equally round, sclera are anicteric, mucous membranes are moist, oropharynx is clear. Neck has no masses, asymmetry or lymphadenopathy. Thyroid is unremarkable. Respiratory: Clear to auscultation and percussion. Normal respiratory excursion and pattern. Cardiac: Examination is regular rate and rhythm. Abdominal exam: Soft, nontender, with no palpable masses. No hepatosplenomegaly. No palpable hernias. Rectal exam: exam deferred Extremities: no clubbing, cyanosis or edema. No adenopathy. Breast: Visual inspection reveals no retractions, nipple inversion, or skin changes. Palpation of the right breast reveals no dominant or suspicious masses. Palpation of the left breast reveals no dominant or suspicious masses. Axillary exam demonstrates no suspicious masses in either the left or right axilla. There is no nipple discharge expressed from either the left or right breast. LABORATORY VALUES: As Noted RADIOLOGIC STUDIES: As Noted Images demonstrated the abnormality which was just against the lateral abdominal wall muscle. Assessment IMPRESSION: abnormal right breast imaging PLAN: I recommended referral to breast imaging for biopsy. The patient declined referral and wanted 6 month follow up mammogram and ultrasound. I will order follow up mammogram and ultrasound in the [facility]. SHe should continue to perform a self breast exam and if she notes any changes should follow up immediately Diagnoses: (R92.8) Abnormal mammogram (N63.0) Breast nodule My findings have been communicated to Ron via shared medical record. This note will be forwarded to Bhanu Meng MD. Return to Clinic: The patient is instructed to follow-up with me in 6 months, you should obtain a mammogram and ultrasound prior to this follow up visit. Lidya Champion MD documented in this encounter [facility] 07-21-2023 Nurse Note REVIEW OF SYSTEMS: General: The patient denies fatigue, denies weight loss, denies weight gain, denies feeling hot, and denies feelings of cold. Eyes: The patient denies glaucoma, denies eye injury/surgery, does not wear glasses or contacts. Ear/Nose/Throat: The patient notes allergies, denies hayfever, denies ear infections, and denies bloody noses. Cardiovascular: The patient denies chest pain, denies heart disease, denies high blood pressure,denies cardiac stent, denies prior heart attack, denies irregular heart beat, notes high cholesterol, denies poor circulation, denies heart failure, other cardiac issues, denies claudication, denies cold feet, denies peripheral arterial stent. Respiratory: The patient denies tuberculosis, denies pneumonia, denies frequent cough, denies pulmonary embolism, denies shortness of breath, and denies coughing up blood. Gastrointestinal: The patient denies difficulty swallowing, denies acid reflux, denies ulcers, denies vomiting, denies jaundice/hepatitis, denies gallbladder problems, denies black or tarry stools, denies hemorrhoids, denies bleeding from rectum, denies diverticulitis, denies constipation, denies diarrhea, denies loss of stool control, and denies hernias. Kidney/Bladder: The patient denies kidney stones, denies urine infections, and denies bloody urine. Skin: The patient denies a history of skin cancer, denies bleeding/changing moles, and denies a history of skin rash. Neurologic: The patient denies a history of epilepsy/convulsions, denies headaches, denies head/spinal injuries, and denies stroke/TIA. Psychiatric: The patient denies psychiatric medications, denies depression, and denies voices, denies substance abuse. Endocrine: The patient denies thyroid disorders, denies diabetes, and denies hormonal problems. Hematologic: The patient denies a history of bruising, denies bleeding, and denies anemia, denies blood clots. Infections: The patient denies a history of measles and mumps, denies rheumatic fever, and denies sexually transmitted diseases. Musculoskeletal: The patient denies back pain/injury, denies back problems, denies sciatica, denies knee/foot trouble, denies arthritis, or denies gout. When was patient's last Mammogram screening? 2023 Last Colonoscopy: 12/2022 Donna Rico LPN documented in this encounter [facility] 07-21-2023 Miscellaneous Notes Patient stopped by the office for her pap results. Nurse spoke with patient. Explained results and need for colposcopy. Thomas procedure explained. Patient aware appointment will need scheduled with a doctor. All questions answered. Patient will call to schedule at another time. Marla Fernandez RN Left message for patient to call office. RAFAELA ROSALES RN Pap ASCUS and HPV+, she will need a colp. Pap was done at pt request. Sandy De Leon APRN.MARK documented in this encounter [facility] 07-10-2023 History of Present illness Narrative Type Caster offered: Patient declines. Nelsy is a 72 year old No obstetric history on file. who presents for an annual gynecologic exam without complaints. Postmenopausal: Yes HRT use: No. Last Pap: normal HPV: N/A History of abnormal pap: No Last mammogram: 2023 abnormal, needs biopsy History of abnormal mammogram: Yes Sexually active: Yes Pain with intercourse: No Postcoital bleeding: No OB History No obstetric history on file. 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 Comments: Sexual Activity: Not Asked; No partner data on record Contraception: No contraception data on record PAST MEDICAL HISTORY Diagnosis Date Age-related osteoporosis [...] HISTORY OF 2007 anterior vaginal repair prolapse FAMILY HISTORY Problem Relation Age of Onset Alzheimer's Disease Father Diabetes Paternal Grandmother Stroke Maternal Grandfather Cancer Mother smoker Thyroid Mother SOCIAL HISTORY Social History Tobacco Use Smoking status: Never Smokeless tobacco: Never Vaping Use Vaping Use: Never used Substance Use Topics Alcohol use: Yes Comment: ocassional wine Drug use: Never REVIEW OF SYSTEMS Abdomen: No abdominal pain, nausea, vomiting, diarrhea, or constipation. No bloating, early satiety, indigestion, or increased flatulence. Bladder: No dysuria, gross hematuria, urinary frequency, urinary urgency, or incontinence Breast: No breast lumps, nipple d/c, overlying skin changes, redness or skin retraction Allergies and current medication updated:Yes EXAM: There were no vitals taken for this visit. GENERAL: pleasant, female in no apparent distress HEENT: Normocephalic, atraumatic, mucus membranes moist, and no lesions NECK: Supple, full range of motion, no adenopathy, and thyroid normal DERMATOLOGY: Normal, without lesions, non-icteric, and non-hirsute BREAST: soft, non-tender, symmetric, no dominant mass, normal nipple-areolar complex, no lymphadenopathy, and no nipple discharge CHEST: Normal inspiratory effort ABDOMEN: soft, non-tender, and no masses PELVIC: external genitalia normal, normal Bartholin's glands, urethra, [place]'s glands, no vulvar lesions, no cervical lesions, physiologic discharge present, normal appearing perineal body and perianal region BIMANUAL: uterus normal size, shape and consistency, no adnexal masses, and non-tender RECTOVAGINAL: deferred. NEURO: alert and oriented x3,exam grossly non-focal EXTREMITIES: normal ASSESSMENT/PLAN: 1) Health maintenance: Pap done with HPV. Done per pt request Mammogram up to date- having a breast biopsy 07/21/23 Nutrition, exercise and routine health maintenance exams reviewed. Calcium/Vitamin D supplementation information provided. Colon cancer screening: up to date with screening 2022 in [place] BMD: ordered 2) Follow up one year or sooner as needed Sandy De Leon APRN.MARK documented in this encounter [facility] 06-29-2023 History of Present illness Narrative Chief Complaint Patient presents with: Follow Up HPI Liam King is a 72 year old female who presents here today for Above Complaints.. Patient presents for US follow up. Patient had mammogram which showed an abnormality and US showed [id number] Hypoechoic irregular nodule of the right breast. Past medical history, [...] REVIEW OF SYSTEMS SEE HPI EXAM: BP 150/80 Pulse 82 Resp 14 Wt 58.1 kg (128 lb) BMI 24.64 kg/m General Appearance: Well appearing, [...] on 07/18/2023 Influenza Vaccine(1) due on 11/26/2023 Mammogram Screening due on 06/22/2024 Annual PCP Team Chronic Disease Visit due on 06/23/2024 DTaP,Tdap,Td Vaccine(2 - Td or Tdap) due on 12/01/2024 Diabetes Screening due on 05/21/2026 Lipid Screening due on 01/17/2028 Bone Density Screening Completed Hepatitis C Screening Completed Colorectal Cancer Screening Discontinued ASSESSMENT/PLAN: 1. Abnormal mammogram - ICD9: 793.80, ICD10: R92.8 (primary diagnosis) - CONSULT TO GENERAL SURGERY 2. Breast nodule - ICD9: 793.89, ICD10: N63.0\ - CONSULT TO GENERAL SURGERY Rafaela Washington APRN.DIVER HELPER documented in this encounter [facility] 06-22-2023 Note Mass in the right br east, as described above. Further evaluation with ultrasound is recommended. BI-RADS CATEGORY: BI-RADS Category: 0 Incomplete; Need Additional Imaging Evaluation and/or Prior Mammograms for Comparison. Recommendation: Ultrasound. Recommended Date: Immediate. Laterality: Right. MACRO: None Signed by: Naveen Barba 06/22/2023 10:03 AM Dictation workstation: [id number] [facility] 05-21-2023 Emergency department Note HPI Chief Complaint Patient presents with GERD Pt comes in for heart burn x 30 mins. 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 She states she is having a burning [...] Winter Flanagan 05/21/2023 4:27 AM Dictation workstation: [id number] ED Course & [facility] ED Course as of 05/21/23 0558 [place] May 21, 2023 0356 Twelve-lead EKG interpreted by myself at 0330. 1 normal sinus rhythm at 66 2 low voltage criteria 3 no ectopy [MS] ED Course User Index [MS] Chris Duran, DO Diagnoses as of 05/21/23 0558 [...] performed using a different testing methodology at [facility] than at other [facility]. Direct result comparisons should only be made within the same method. Medical Decision Making Take medication as prescribed. Follow-up with [facility] medical doctor in 1 to 2 days if worse return to ED. Procedure Procedures Chris Duran DO 05/21/23 0558 documented in this encounter [facility] Work Phone: 05-21-2023 Physician Emergency department Note HPI Chief Complaint Patient presents with GERD Pt comes in for heart burn x 30 mins. 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 She states she is having a burning [...] Winter Flanagan 05/21/2023 4:27 AM Dictation workstation: [id number] ED Course & [facility] ED Course as of 05/21/23 0558 [place] May 21, 2023 0356 Twelve-lead EKG interpreted [...] performed using a different testing methodology at [facility] than at other [facility]. Direct result comparisons should only be made within the same method. Medical Decision Making Take medication as prescribed. Follow-up with [facility] medical doctor in 1 to 2 days if worse return to ED. Procedure Procedures Chris Duran DO 05/21/23 0558 [facility] Work Phone: 05-09-2023 History of Present illness Narrative Opened in error documented in this encounter [facility] 05-09-2023 History of Present illness Narrative POPULATION HEALTH NAVIGATION OUTREACH Action/FYI Spoke to Nelsy . She has mammograms and colonoscopy in [place]. [facility] [employer] MESSAGE SENT BP Controlled (<130/80 has appointment on 07-25-23 Mammogram Screening Never done Patient Identified by Name and : YES, via phone Outreach Outcome/Action Spoke to patient / parent / legal guardian: Patient declined. Would like to manage scheduling their own appointments Unable to reach patient: Left message [employer] message sent Did you use a PCP [...] 60+ series) Never done Navigation Signature: Lily Can MA May 09, 2023 7:40 AM documented in this encounter [facility] 04-22-2023 Emergency department Note HPI Chief Complaint [...] her left knee. Patient has been taking amaj-lgc-uxewkti medication for that. Patient will be given [...] ED. Take medication as prescribed Procedure Procedures Chirs Duran DO 04/22/23241 documented in this encounter [facility] Work Phone: 04-22-2023 Physician Emergency department Note [...] her left knee. Patient has been taking zgfg-ggt-iimclhm medication for that. Patient will be given [...] ED Course & MDM Diagnoses as of 04/22/23 0241 Acute pharyngitis, unspecified etiology Medical Decision Making Take medication as prescribed. Gargle. Follow-up with family medical doctor in 1 to 2 days if no improvement return to ED. Take medication as prescribed Procedure Procedures Chris Duran DO 04/22/23241 [facility] Work Phone: 03-07-2023 History of Present illness Narrative POPULATION HEALTH NAVIGATION OUTREACH Action/I HCC : NONE CARE GAPS BP Controlled (<130/80) Never done Mammogram Screening Never done Patient Identified by Name and : NO Outreach Outcome/Action Unable to reach patient: Left message Decohuntt message sent Did you use a PCP [...] Mammogram Screening Never done Navigation Signature: Lily Can MA March 07, 2023 12:00 PM documented in this encounter [facility] 02-20-2023 History of Present illness Narrative Chief Complaint Patient presents with: Recheck: Blood pressure HPI Liam King is a 72 year old female who [...] Marilyn Hair PA-C documented in this encounter [facility] 02-02-2023 Miscellaneous Notes Pt notified of Marilyn's [...] maybe take medication in the morning? Ciara Rhodes, RN Left message to call office. 02/02/2023 8:21 AM. Jonelle Casanova LPN Please ask patient for her home BP readings documented in this encounter [facility] 01-20-2023 Instructions Marilyn Hair PA-C - 01/20/2023 8:31 AM EDT BONE MINERAL DENSITY PATIENT INSTRUCTIONS == Bone mineral density testing measures the amount [...] usual activities immediately. 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 Advance directive discussed [...] Marilyn Hair PA-C documented in this encounter [facility] 12-21-2022 History of Present illness Narrative Miesha Jefferson PA-C Department of Orthopaedics Orthopaedics [address] [facility] [id number] Dept: [phone] Dept December 21, 2022 CHIEF COMPLAINT: Established Patient and Knee Pain of the Left Knee Ms. Liam King is a 72 year old female who presents with continued left knee pain. Pain is a 6 out of 10 aching which has been bothering her for several years. She seems most bothered by the fact that she is unable to fully straighten her leg when she walks and therefore has a little bit of a limp. She has oral diclofenac which she does find beneficial but she admits that she is not very diligent about taking the medication. She is not interested in trying corticosteroid injections and she said that she is not ready for surgery. She recently retired from the [employer] department. She is very active and enjoys [...] the course for surgical recovery. Ms. Liam King was advised as to contrast therapies and/or to take analgesics/anti-inflammatories as needed and all contraindications were reviewed. OBJECTIVE: Ms. Liam King is a pleasant 72 year old in [...] compartment IMPRESSION IMPRESSION: Degenerative changes as discussed Multiple Resaw Operator: AHSLEY Transcribe Date/Time: Dec 25 2022 9:21A Dictated [...] anxiety) This note was partially generated using 3PointData voice recognition system, and there may be [...] today to review. documented in this encounter [facility] 12-21-2022 History of Present illness Narrative Radiology Service Progress Note PATIENT NAME: Liam King DATE OF SERVICE: December 21, 2022 TIME: [...] 2022 10:07 AM documented in this encounter [facility] 12-09-2022 Miscellaneous Notes Pt called and is notified of providers message and instructions. Pt voices understanding. Shraddha Lanza RN Left message for pt to [...] have been placed. documented in this encounter [facility] 11-10-2022 Instructions Rafaela Washington APRN.DIVER HELPER - 11/10/2022 11:04 AM EDT Start claritin and flonase daily x5 days Follow up in 5-7 days if no improvement or worsening symptoms documented in this encounter [facility] 11-10-2022 History of Present illness Narrative Chief Complaint Patient presents with: Sinusitis: Pressure, headache, dizziness since Monday HPI Liam King is a 72 year old female who [...] symptoms persist or worsen. Rafaela Washington APRN.MARK documented in this encounter [facility] 2022 Miscellaneous Notes Left message of same [...] Taylor Vasquez LPN documented in this encounter [facility] 08-17-2022 History of Present illness Narrative POPULATION HEALTH NAVIGATION OUTREACH Action/I left message to call me back to [...] CANCER SCREENING due on 09/01/2022 Navigation Signature: Kay Garcia MA August 17, 2022 9:43 AM documented in this encounter [facility] 08-12-2022 History of Present illness Narrative Chief Complaint Patient presents with: Follow Up: Bp 07/18/22 HPI Liam King is a 71 year old female who [...] Marilyn Hair PA-C documented in this encounter [facility] 07-19-2022 Miscellaneous Notes Spoke with pt and [...] Marilyn Hair PA-C documented in this encounter [facility] 07-18-2022 History of Present illness Narrative Chief Complaint Patient presents with: Follow Up: 6 month HPI Nelsy King is a 71 year old female who [...] Marilyn Hair PA-C documented in this encounter [facility] 07-04-2022 History of Present illness Narrative POPULATION HEALTH NAVIGATION OUTREACH Action/FYI Unable to LVM, mailbox is not set up. My chart message sent ANNUAL MEDICARE WELLNESS P CONTROLLED (<130/80) Never done MAMMOGRAM Never done INFLUENZA(1) due on 01/27/2022 COLORECTAL CANCER SCREENING Patient Identified by Name and : NO Outreach Outcome/Action Unable to reach patient: Phone number not valid / voicemail full Decohuntt message sent Did you use a PCP [...] SCREENING due on 09/01/2022 Navigation Signature: Lily Can MA July 04, 2022 11:18 AM documented in this encounter [facility] 05-19-2022 History of Present illness Narrative [facility] Enrollment Provider Action/FYI: Patient referred by: [facility] Alana Contact made with patient: No - 2nd attempt to reach patient, left another message: Hi my name is Paula Mcgrath RN and I am calling from the [facility] on behalf of your PCP, Bhanu Meng MD. We are excited to share with you a new program to help you manage your health. Please call me back at [phone]. I hope you can take the time to speak with me. (Keep encounter open for additional two business days in case patient calls back. Close encounter if no response by end of second business day) Closing: Could not reach the patient after two attempted outreaches. Mold Carpenter to retry patient in one week. END OUTREACH [facility] Enrollment Provider Action/FYI: Patient referred by: [facility] Alana Contact made with patient: No - Left Message: Hi my name is Paula Mcgrath RN and I am calling from the [facility] on behalf of your PCP, Bhanu Meng MD. We are excited to share with you a new program to help you manage your health. Please call me back at [phone] between the hours of 8am-5pm Monday-Monday. You will receive another phone call from me within the next two business days. I hope you can take the time to speak with me. (Keep encounter open and attempt 2nd outreach in two business days from today) END OUTREACH documented in this encounter [facility] 04-20-2022 History of Present illness Narrative POPULATION HEALTH NAVIGATION OUTREACH Action/FYI [facility] MESSAGE SENT FOLLOW UP 06-02-22 BP CONTROLLED [...] Sent to Practice: No Navigation Signature: Lily Can MA April 20, 2022 11:33 AM documented in this encounter [facility] 04-19-2022 Miscellaneous Notes Pt advised of Marilyn's [...] Lisa Pena LPN documented in this encounter [facility] 02-28-2022 Miscellaneous Notes Pt called and is notified of providers message. Pt voices understanding. Pt put through to scheduling to make establishing appointment for . Shraddha Lanza RN Dr Meng will let a pt's spouse establish care with him. Advised pt to call back for message. Pt can get her scheduled to est care with Dr Meng. Taylor Vasquez LPN Patient calling asking if Dr. Meng would be willing to take on her as a new patient. Please advise and call patient. documented in this encounter [facility] 01-18-2022 Miscellaneous Notes Patient calls and notified of provider response. Patient voiced understanding. Patient declining prescription medication at this time. Patient will see what happens and will call back if she feels like she needs provider to call in Singulair or tyrell prescription. Ada Tipton, RN Called and left a voicemail for the Patient to call back and ask for a nurse to receive the providers message. Shraddha Lanza RN Let patient know I have never sent in a script for tyrell D for her. Also with having hypertension I would not send one in now. I'm willing to send in a script for plain Tyrell without a decongestant, since the decongestant can raise her BP and increase the risk of a heart attack or stroke. I can also try her on Singulair 10 mg before bed for allergies Pt called in and reports she would like provider to send a refill of Tyrell D [address] [facility] in [place] for her. She reports provider have sent it before as you can't get it OTC. She is asking if she could get more than just the 10 pill and at least 1 refill for her allergies. I could not find under medication history. Please call Pt once ordered. documented in this encounter [facility] 12-23-2021 History of Present illness Narrative Chief Complaint Patient presents with: Recheck HPI Nelsy Aguilar Mark King is a 71 year old female who [...] Marilyn Hair PA-C documented in this encounter [facility] 11-26-2021 History of Present illness Narrative Chief Complaint Patient presents with: Recheck HPI Nelsy Aguilar Mark King is a 71 year old female who [...] Negative Ketones, Urine Negative Trace (A) Specific [place], Ur 1.005 - 1.030 1.024 Hemoglobin/Blood,Ur Negative [...] Marilyn Hair PA-C documented in this encounter [facility] 11-25-2021 History of Present illness Narrative Radiology Service Progress Note PATIENT NAME: Nelsy King DATE OF SERVICE: November 25, 2021 TIME: [...] 2021 2:34 PM documented in this encounter [facility] 11-24-2021 Miscellaneous Notes Patient returned call and [...] Marilyn Hair PA-C documented in this encounter [facility] 11-23-2021 History of Present illness Narrative Medicare [...] F) Resp 16 Ht 153.5 cm (5' 0.43) Wt 56.7 kg (125 lb) BMI 24.06 kg/m Alert and oriented X 3: YES Body mass index is 24.06 kg/m . Visual acuity: sees opto ASSESSMENT/PLAN: 71 year old female The following prevention plan was discussed during the office visit and provided to the patient: See below. 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 Advance directive discussed [...] which included preparing to see the patient, nyxe-og-bgtf patient care, completing clinical documentation, obtaining and/or reviewing separately obtained history, performing a medically appropriate examination, counseling and educating the patient/family/caregiver and ordering medications, tests, or procedures. documented in this encounter [facility] 10-23-2021 Miscellaneous Notes Patient was notified [place] [facility] Ma Let patient know her COVID test was normal. documented in this encounter [facility] 10-22-2021 Miscellaneous Notes notified. Pie Crust Mixer please reach out and schedule patient a establish/physical with Dr. Meng/Marilyn Wetzel MA Yes. That is ok. Patient calling asking if Dr Meng would take her (Sergey King, 01/14/1956) as his patient? He has no Dr right now. He has not been seen in [facility] system at all. She said he is in good health, still working, 32 years at his job. Please advise documented in this encounter [facility] 09-27-2021 History of Present illness Narrative Miesha Jefferson PA-C Department of Orthopaedics Orthopaedics [address] [facility] [address] Dept: [phone] Dept September 27, [address] Marilyn Hair for an opinion regarding left knee pain. My final recommendations will be communicated back to the requesting physician by way of shared Medical record or letter to requesting physician via US mail. CHIEF COMPLAINT: New and Pain of the Left Knee Ms. Nelsy King is a 71 year old female she [...] briefly discussed her surgical options. Ms. Nelsy King was advised as to contrast therapies and/or to take analgesics/anti-inflammatories as needed and all contraindications were reviewed. OBJECTIVE: Ms. Nelsy King is a pleasant 71 year old in [...] dorsalis pedis Imaging: IMPRESSION: Osteoarthritis as described. Multiple Resaw Operator: ASHLEY Transcribe Date/Time: Sep 27 2021 11:10A Dictated [...] (Patient not taking: Reported on 10/19/2020 ) Fphjrtydnya-Sfnmbhooi-Atp C-Mn (GLUCOSAMINE CHONDROITIN MAXSTR) 500-400 mg cap [...] anxiety) This note was partially generated using [employer] voice recognition system, and there may be [...] [facility]. documented in this encounter [facility] 09-27-2021 History of Present illness Narrative Radiology Service Progress Note PATIENT NAME: Nelsy King DATE OF SERVICE: September 27, 2021 TIME: [...] 2021 9:41 AM documented in this encounter [facility] 05-31-2021 Note Discharge Summary PHYSICAL THERAPY Referral/Discharge [...] PT; May 31 2021 12:02PM EST (Author) [facility] 01-22-2021 History of Present illness Narrative Pt [...] complete today's treatment with some difficulty. [facility] Work Phone: 12-30-2020 Note - From: Kylah Lugo To: [facility]N - Administrative; Sent: 11/11/2020 12:58:53 EDT Show up: 12/11/2020 12:58:00 EDT Subject: Ambulatory Reminder Due Date/Time: 12/23/2020 12:58:00 EDT Reminder/Recall Pt wants to rechedule in 1 month Message left for patient to call and reschedule. Message left for patient to call and reschedule. Message left for patient, and letter sent per policy. [facility] 10-27-2020 Emergency department Note ED PROVIDER NOTE [facility] EMERGENCY DEPARTMENT NAME: Liam King AGE: 70 y.o. : 1950 VISIT DATE: 10/27/2020 CSN: [id number] PCP: Fortino Chakraborty MD Chief Complaint Patient presents with [...] Medical History: Diagnosis Date Colon polyp 09/01/2016 [facility]/Dr. Bijan Carrillo Small polyp 3mm Hemorrhoids 09/01/2016 [facility]/Dr. Bijan Carrillo Rectum revealed small internal hemorrhoids Left tennis elbow 02/08/2018 Tubular adenoma 09/01/2016 [facility]/Dr. Bijan Carrillo Varicose veins of both lower extremities 1974 Past Surgical History: Procedure Laterality Date BLADDER SUSPENSION 2006 COLONOSCOPY W/ BIOPSIES 09/01/2017 Dr Carrillo PAP TEST 02/2017 [facility]/Dr. Bijan Carrillo SCLEROTHERAPY Bilateral 2000; 2009 DR MADRIGAL/DR NGUYEN VAGINAL PROLAPSE REPAIR 2006 VEIN SURGERY Right 10/24/2000 High ligation & division greater saphenous vein-Dr. Madrigal VEIN SURGERY Bilateral 1975 bilateral stripping-[facility] VEIN SURGERY Left 2000 ligation & division [...] Social Gatherings with Friends and Family: Attends Bahai Services: Active Member of Clubs or Organizations: [...] into each nostril daily as needed .) cydjidbhqfa-iusgngbzz-itm C-Mn 500-400 mg cap Take 1 capsule by mouth. Allergies Allergen Reactions Cat Dander Itching Demerol [Meperidine] GI Intolerance Agrawal Gus Other (See Comments) NASAL CONGESTION Ragweed Other [...] Disposition ED Disposition Condition Comment Discharge Stable Liamxiomara King discharged to home/self care in stable condition. Follow-up Information 1. Fortino Chakraborty MD. Specialty: Family Medicine [address] [place], [place] [id number] Contact information for after-discharge care Follow-up information [...] CP or SOB. documented in this encounter [facility] 04-14-2020 History of Present illness Narrative Radiology Service Progress Note PATIENT NAME: Nelsy King DATE OF SERVICE: April 14, 2020 TIME: 10:06 AM PATIENT IDENTITY VERIFICATION COMPLETED USING TWO [...] / Tunne / Merchant Left and Wt. Bearing: PERIPHERAL IV DATA: Not applicable SIGNED BY: RT Emiliano April 14, 2020 10:06 AM documented in this encounter [facility] 02-27-2017 Evaluation + Plan note Associated Problem(s): Wellness examination (Resolved 06/13/2018) Sounds like a DEXA scan is in [...] C antibody today and the screening mammogram. [facility] 02-27-2017 Miscellaneous Notes Associated Problem(s): Wellness examination (Resolved 06/13/2018) Sounds like a DEXA scan is in [...] C antibody today and the screening mammogram. Associated Problem(s): Allergic rhinitis Evidence on exam of chronic mouth breathing secondary to chronic nasal narrowing. Suggest the use of fexofenadine or Tyrell 180 mg once a day Flonase 1 puff each side twice a day. Suggest frequent use of nasal saline. Suggest simply saline which is an bvbf-caa-udlkjxk nasal spray documented in this encounter [facility] 02-27-2017 Evaluation + Plan note Associated Problem(s): Allergic rhinitis Evidence on exam of chronic mouth breathing secondary to chronic nasal narrowing. Suggest the use of fexofenadine or Tyrell 180 mg once a day Flonase 1 puff each side twice a day. Suggest frequent use of nasal saline. Suggest simply saline which is an ayce-yyg-jnmzywg nasal spray [facility] 02-27-2017 History of Present illness Narrative Problem List Items Addressed This Visit Respiratory Allergic rhinitis Evidence on exam of chronic mouth breathing secondary to chronic nasal narrowing. Suggest the use of fexofenadine or Tyrell 180 mg once a day Flonase 1 puff each side twice a day. Suggest frequent use of nasal saline. Suggest simply saline which is an wrtp-ths-biwhwsl nasal spray Other Wellness examination Sounds like [...] the fact that she was and the [place] [facility] 2 weeks ago for sinusitis. She was placed on a prescription for Augmentin. The following portions of the patient's history were reviewed and updated as appropriate: allergies, current medications, past family history, past medical history, past social history, past surgical history and problem list. Review of Systems Constitutional: [...] to person, place, and time. She appears well-developed and well-nourished. No distress. HENT: Head: Normocephalic [...] Her behavior is normal. Judgment and thought content normal. Assessment/Plan: Problem List Items Addressed This Visit Respiratory Allergic rhinitis Evidence on exam of chronic mouth breathing secondary to chronic nasal narrowing. Suggest the use of fexofenadine or Tyrell 180 mg once a day Flonase 1 puff each side twice a day. Suggest frequent use of nasal saline. Suggest simply saline which is an xkst-lnc-muizpjs nasal spray Other Wellness examination Sounds like [...] Visit Diagnoses Risk for falls - Primary ER visit in [place] 02/22 for sinus issues. Put on Augmentin 875-125 documented in this encounter [facility] 02-27-2017 Instructions Fortino Chakraborty - 02/27/2017 9:13 AM EDT Problem List Items Addressed This Visit Respiratory Allergic rhinitis Evidence on exam of chronic mouth breathing secondary to chronic nasal narrowing. Suggest the use of fexofenadine or Tyrell 180 mg once a day Flonase 1 puff each side twice a day. Suggest frequent use of nasal saline. Suggest simply saline which is an zggw-vzu-yjjaoeu nasal spray Relevant Medications fexofenadine (TYRELL) 180 MG tablet fluticasone (FLONASE) 50 mcg/actuation [...] You Can Do to Prevent Falls (from [facility]). 2. Go through the brochure, Check for Safety: A Home Fall Prevention Checklist for Older Adults (from [facility]), and make changes as recommended. 3. Join a community falls prevention program: Stepping On, a 7-week evidence based program that teaches balance exercises and fall prevention strategies Lei Chi for older adults, group exercise that teaches Lei Chi forms that reduce fall risk (weight shifting, postural alignment and control, and coordinated movements of the arms, legs, head, and trunk) Matter of Balance, an evidence based program [...] blankets, or other objects on the floor? A.tool shaper setup operator things that are on the floor. Always keep objects off the floor. Q: Do you have to walk over or around wires or cords (like lamp, telephone, or extension cords)? A. Coil or tape cords and wires next to the wall so you can t trip over them. If needed, have an electrician technician put in another outlet. STAIRS AND STEPS: Look at the stairs you use both inside and outside your home. Q: Are there papers, shoes, books, or other objects on the stairs? A. tool shaper setup operator things on the stairs. Always keep objects off stairs. Q: Are some steps broken or uneven? A. Fix loose or uneven steps. Q: Are you missing a light over the stairway? A. Have an electrician technician put in an overhead light at the top and bottom of the stairs. Q: Do you have only one light switch for your stairs (only at the top or at the bottom of the stairs)? A. Have an electrician technician put in a light switch at the top and bottom of the stairs. You can get light switches that glow. Q: Has the stairway light [...] at all the medicines you take, even mplx-nxd-zodbjqy medicines. Some medicines can make you sleepy or dizzy. [...] lightweight curtains or shades to reduce glare. [place] a contrasting color on the top edge of all steps so you can see the stairs better. For example, use a light color paint on dark wood. To access this brochure online, please visit the CDC website at http://www.cdc.gov/steadi/pdf/check_for _safety_brochure-a.pdf Chair Rise Exercise What it does: Strengthens [...] of you, keeping your back & neck straight & and chest slightly forward. 3. Breathe in [...] instructions, please visit the CDC website at http://www.cdc.gov/steadi/pdf/chair_ris e_exercise-a.pdf Stepping On is an evidence based program [...] vision, and medications. Classes are offered at [facility]. To find out specifics about a class, please call [phone]. Lei chi: Moving for Better Balance involves low impact exercise. The 12-week class is offered for three hours per week and is led by a trained defensive driving instructor. It is intended for people aged [...] additional resources about fall prevention please contact: [facility] Violence and Injury Prevention Program at [phone] or [email or web address] A Matter of Balance: Managing Concerns about Falls is an evidence based program designed to reduce the fear of falling and increase activity levels of older adults. A trained combat systems operator mine warfare leads 8 two-hour sessions for small groups [...] at home. Classes are offered in all [address] [place] [address] in [place]. For more information about specific classes near you, please visit http://aging.[place].gov/steadyu/resources /matterofbalance.aspx. Well Visit, Women 50 to 65: Care [...] a good idea to know your test results and keep a list of the medicines you [...] a.m. to 4 p.m., stay in the shade or cover up with clothing and a hat with a wide brim. Wear sunglasses that block UV rays. Even when it's cloudy, put broad-spectrum sunscreen (SPF 30 or [...] should have a mammogram, which is an X-ray of your breasts. A mammogram can spot breast cancer before it can be felt and when it is easiest to treat. Pap test and pelvic exam. Ask your doctor how often you should have a Pap test. You may not need to have a Pap test as often as you used to. Vision. Have your eyes checked every year or two or as often as your doctor suggests. Some experts recommend that you have yearly exams for glaucoma and other age-related eye problems starting at age 50. Hearing. Tell your doctor if you notice any change in your hearing. You can have tests to find out how well you hear. Diabetes. Ask your doctor whether you should have tests for diabetes. Colon cancer. You should begin tests for colon cancer at age 50. You may have one of several tests. Your doctor will tell you how often to have tests based on your age and risk. Risks include whether you already had a precancerous polyp removed from [...] Log into your personal health record on [email or web address]://[email or web address] and enter Y074 in the Education box to learn more about Well Visit, Women 50 to 65: Care Instructions. Current as of: December 15, 2015 Content Version: 11.2 4548-8689 [employer]. Care instructions adapted under license by your healthcare professional. If you have questions about a medical condition or this instruction, always ask your healthcare professional. [employer] disclaims any warranty or liability for your use of this information. documented in this encounter [facility] Evaluation note Diagnosis Acute non-recurrent sinusitis, unspecified location- Primary [facility]* Diagnosis Left knee pain, unspecified chronicity- Primary documented in this encounter [facility] note* Diagnosis Primary osteoarthritis of left knee- Primary Primary localized osteoarthrosis, lower leg Chronic pain of left knee Pain in joint, lower leg [facility] Diagnosis Left knee pain, unspecified chronicity [facility] Diagnosis Medicare annual wellness visit, subsequent- [...] fracture Senile osteoporosis [facility] Diagnosis Elevated LFTs- Primary Other abnormal blood chemistry [facility] Diagnosis Elevated LFTs Other abnormal blood chemistry [facility] Diagnosis Elevated LFTs- Primary Other abnormal blood chemistry Abnormal levels of other serum enzymes Renal cyst Unspecified congenital cystic kidney disease [facility] Diagnosis Hypertension, essential- Primary Unspecified essential hypertension Elevated LFTs Other abnormal blood chemistry [facility] Diagnosis Hypertension, essential Unspecified essential hypertension [facility] Diagnosis Elevated LFTs- Primary Other abnormal blood chemistry [facility] Diagnosis Palpitations- Primary [facility] Diagnosis Hypertension, essential- Primary Unspecified essential hypertension Elevated fasting glucose Impaired fasting glucose Palpitations Family history of thyroid disease Family history of other endocrine and metabolic diseases Age-related osteoporosis without current pathological fracture Senile osteoporosis Dyslipidemia Other and unspecified hyperlipidemia [facility] Diagnosis Hypertension, essential- Primary Unspecified essential hypertension [facility] Diagnosis Acute non-recurrent frontal sinusitis [J01.10 (ICD-10-CM)]- Primary [facility] Diagnosis Hypertension, essential- Primary Unspecified essential hypertension Elevated fasting glucose Impaired fasting glucose documented in this encounter [facility] note* Diagnosis Pain in both knees, unspecified chronicity- Primary [facility] Diagnosis Primary osteoarthritis of left knee- Primary Primary localized osteoarthrosis, lower leg Chronic pain of left knee Pain in joint, lower leg [facility] Diagnosis Medicare annual wellness visit, subsequent- Primary Routine general medical examination at a [facility] care facility Advance directive discussed with patient Other specified counseling Hypertension, essential Unspecified essential hypertension Hyperlipidemia, mixed Mixed hyperlipidemia Elevated fasting glucose Impaired fasting glucose Age-related osteoporosis without current pathological fracture Senile osteoporosis Family history of thyroid disease Family history of other endocrine and metabolic diseases [facility] Diagnosis Hypertension, essential- Primary Unspecified essential hypertension [facility] Diagnosis Pain in both knees, unspecified chronicity [facility] Diagnosis Acute pharyngitis, unspecified etiology- Primary documented in this encounter [facility] Work Phone: Evaluation note* Diagnosis Gastroesophageal reflux disease with esophagitis without hemorrhage- Primary documented in this encounter [facility] Work Phone: Evaluation note* Diagnosis Encounter for screening mammogram for malignant neoplasm of breast documented in this encounter [facility] Work Phone: Evaluation note* Diagnosis Abnormal mammogram- Primary Abnormal mammogram, unspecified Breast nodule Other (abnormal) findings on radiological examination of breast [facility] noteNo assessment information [facility] Work [facility]: Evaluation note* Diagnosis Encounter for gynecological examination (general) (routine) without abnormal findings- Primary Screening for malignant neoplasm of cervix Screening for malignant neoplasm of the cervix Encounter for screening for human papillomavirus (HPV) Special screening examination for human papillomavirus (HPV) Encounter for screening for osteoporosis Special screening for osteoporosis Age-related osteoporosis without current pathological fracture Senile osteoporosis [facility] Diagnosis ASCUS with positive high risk HPV cervical- Primary Cervical high risk human papillomavirus (HPV) DNA test positive [facility] Diagnosis Abnormal mammogram Abnormal mammogram, unspecified Breast nodule Other (abnormal) findings on radiological examination of breast Encounter for immunization- Primary Need for other specified prophylactic vaccination against single bacterial disease [facility] Diagnosis Hypertension, essential- Primary Unspecified essential hypertension Elevated fasting glucose Impaired fasting glucose Arthritis of both knees Unspecified arthropathy, lower leg Paresthesia Disturbance of skin sensation Family history of thyroid disease Family history of other endocrine and metabolic diseases Medication management Encounter for long-term (current) use of other medications [facility] Low serum vitamin B12 Paresthesia Disturbance of skin sensation [facility] Diagnosis Abnormal finding on breast imaging- Primary Other (abnormal) findings on radiological examination of breast [facility] ASCUS with positive high risk HPV cervical- Primary Cervical high risk human papillomavirus (HPV) DNA test positive [facility] Diagnosis Abnormal finding on breast imaging Other (abnormal) findings on radiological examination of breast [facility] Diagnosis Arthritis of both knees- Primary Unspecified arthropathy, lower leg Hypertension, essential Unspecified essential hypertension [facility]* Diagnosis Allergic rhinitis, unspecified seasonality, unspecified trigger- Primary documented in this encounter [facility] Work Phone: Evaluation note* Diagnosis 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 documented in this encounter [facility] note* Diagnosis Hypertension, essential- Primary Unspecified essential hypertension Bacterial sinusitis Unspecified sinusitis (chronic) documented in this encounter [facility] note* Diagnosis Left knee pain, unspecified chronicity- Primary Pre-op testing- Primary Preoperative examination, unspecified Osteoarthritis of left knee, unspecified osteoarthritis type [facility] Diagnosis Pre-op testing- Primary Preoperative examination, unspecified Abnormal finding of blood chemistry, unspecified Abnormal results of liver function studies Nonspecific abnormal results of liver function study Osteoarthritis of left knee, unspecified osteoarthritis type [facility]* Diagnosis Pre-op evaluation- Primary Preoperative examination, unspecified Screening for depression Encounter for screening examination for other mental health and behavioral disorders documented in this encounter [facility] note* Diagnosis Medicare annual wellness visit, subsequent- Primary Routine general medical examination at a health care facility Hypertension, essential Unspecified essential hypertension Elevated fasting glucose Impaired fasting glucose Low serum vitamin B12 Encounter for gynecological examination without abnormal finding Routine gynecological examination Advance directive discussed with patient Other specified counseling Encounter for screening examination for other mental health and behavioral disorders Screening for depression Dyslipidemia Other and unspecified hyperlipidemia [facility] Diagnosis Acute postoperative pain of left knee- Primary Pre-op testing Preoperative examination, unspecified Osteoarthritis of left knee, unspecified osteoarthritis type documented [facility] Diagnosis Hx of total knee arthroplasty, right- Primary [facility]* Diagnosis Hypertension, essential Unspecified essential hypertension documented in this encounter [facility] note* Diagnosis Acute pain of left knee documented in this encounter [facility] note* Diagnosis Hypertension, essential- Primary Unspecified essential hypertension Chronic pain of left knee Pain in joint, lower leg documented in this encounter [facility] note* Diagnosis Viral URI- Primary Acute upper respiratory infections of unspecified site documented in this encounter [facility] Work Phone: Evaluation note* Diagnosis Low serum vitamin B12- Primary Elevated fasting glucose Impaired fasting glucose Dyslipidemia Other and unspecified hyperlipidemia Hypertension, essential Unspecified essential hypertension Medication management Encounter for long-term (current) use of other medications documented in this encounter [facility] note* Diagnosis Hypertension, essential- Primary Unspecified essential hypertension Gastroesophageal reflux disease without esophagitis Esophageal reflux Encounter for screening mammogram for breast cancer Asymptomatic menopause Paresthesia Disturbance of skin sensation Elevated fasting glucose Impaired fasting glucose Low serum vitamin B12 Dyslipidemia Other and unspecified hyperlipidemia Medication management Encounter for long-term (current) use of other medications documented in this encounter [facility] note* Diagnosis Wellness examination- Primary Risk for falls Seasonal allergic rhinitis, unspecified allergic rhinitis trigger Postmenopausal Asymptomatic postmenopausal status (age-related) (natural) Fibrocystic disease of both breasts Encounter for screening mammogram for malignant neoplasm of breast Seasonal allergic rhinitis, unspecified trigger Acute non-recurrent maxillary sinusitis Acute non-recurrent frontal sinusitis- Primary Body aches Generalized pain Seasonal allergic rhinitis, unspecified trigger Seasonal allergic rhinitis, unspecified trigger- Primary documented in this encounter [facility] note* Diagnosis Hypertension, essential- Primary Unspecified essential hypertension Encounter for screening mammogram for breast cancer Scalp cyst Sebaceous cyst documented in this encounter [facility] note* Diagnosis History of total knee arthroplasty, left- Primary [facility] Diagnosis Encounter for gynecological examination (general) (routine) without abnormal findings- Primary Encounter for screening for human papillomavirus (HPV) Special screening examination for human papillomavirus (HPV) Pap smear for cervical cancer screening Screening for malignant neoplasm of the cervix Encounter for screening mammogram for breast cancer Uterovaginal prolapse, unspecified documented in this encounter [facility] note* Diagnosis Encounter for screening mammogram for breast cancer documented in this encounter [facility] note* Diagnosis Abnormal mammogram- Primary Abnormal mammogram, unspecified documented in this encounter [facility] note* Diagnosis Abnormal mammogram Abnormal mammogram, unspecified documented in this encounter [facility] note* Diagnosis Abnormal mammogram Abnormal mammogram, unspecified documented in this encounter [facility] note* Diagnosis Medicare annual wellness visit, subsequent- Primary Routine general medical examination at a health care facility Hypertension, essential Unspecified essential hypertension Dyslipidemia Other and unspecified hyperlipidemia Elevated fasting glucose Impaired fasting glucose Low serum vitamin B12 Paresthesia Disturbance of skin sensation Family history of thyroid disease Family history of other endocrine and metabolic diseases Advance directive discussed with patient Other specified counseling Age-related osteoporosis without current pathological fracture Senile osteoporosis Encounter for screening examination for other mental health and behavioral disorders Screening for depression [facility] Diagnosis Hx of total knee arthroplasty, left- Primary [facility] Diagnosis Onset Date Resolution Status Admit Date Pelvic floor dysfunction in female acute March 03 7:42am Hemorrhoids noneactive March 03, 2025 7:42am [facility] Work Phone: History of Present illness Narrative* [...] range of motion/joint mobility and strength. [facility] Work Phone: History of Present illness NarrativeFair tolerance to ther ex. Weakness noted with hip and quad strengthening. fair eccentric control on shuttle press. Quick fatigue with SLR. AAROM L knee flexion WFL. [facility] Work Phone: History of Present illness Narrative* [...] of movement inher entire L leg. [facility] Work Phone: History of Present illness NarrativePt has attended 4 visits of PT for L knee pain consisting of evaluation, ther ex, manual, gait training, and home exercises. No significant improvement with regards to knee ROM, pain, or ability as assessed by LEFS since evaluation. Patient cont to c/o knee pain with walking/stairs - encouraged to call MD re cont symptoms. [facility] Work Phone: Hospital Discharge instructions* Attachments The following attachments cannot be sent through Care Everywhere. * Sinusitis (Tanzanian) [facility] Attachments The following attachments cannot be sent through Care Everywhere. * Cough, runny nose, and the common cold ([place]anzanian) [facility] Progress note Author Rosalio Solomon [facility] Note Date/Time March 03, 2025 8: 46am [facility] [address] [place] [address] OFFICE VISIT Date of Service: 03/03/25 MR#: [id number] Acct: [id number] Name: LIAM SMITH Rep #: [id number] : 1950 Provider: Rosalio Solomon DO Age/Sex: 74/F Location: [email or web address] Status: Signed Intake Vital Signs 02/21/17 18:58 Height 5 ft 1 in Intake Visit Reasons: Hemorrhoids Allergies No Known Allergies Allergy (Verified 02/21/17 18:58) Have you fallen in the past year?: No PFSH Social History Smoking Status: Never smoker HPI HPI Details: LIAM KING, is a 74-year-old female presents for evaluation of recent- onset fecal incontinence and an external hemorrhoid. The patient describes episodes of involuntary leakage of stool, despite undergoing pelvic floor therapy. The patient reports a history of bladder prolapse, which was surgicallycorrected with a bladder mesh lift in 2007. The patient has had three vaginal births. She is currently undergoing pelvic floor therapy, but states her symptoms have not improved sufficiently. She denies fever, chills, or weight loss. She also reports of abdominal pain, nausea, vomiting, or rectal bleeding. No significant change in bowel habits reported (frequency, consistency) apart from the incontinence. She has a history of bladder prolapse and resolved urinary incontinence post-surgery in 2007. No current reports of urinary incontinence or dysuria. Patient reports pelvic floor muscle weakness. No anxiety or depression reported, though the patient expresses significant embarrassment and frustration over the symptoms. ROS Const Constitutional: No fatigue, fever(s) or weight change ENT ENT: No difficulty swallowing Gastro GI: No abdominal pain, belching, bloating, change in bowel habits, change in stool character, coffee ground emesis, constipation, cramping, diarrhea, heartburn, difficulty swallowing, feeling full early, excessive flatus, incontinent of stools, Vomiting blood/hematemesis, Blood in stool, loose stools,Black,tarry stools, nausea/dyspepsia, pain with swallowing, vomiting or other Musc Musculoskeletal: Positive for Arthritis; No joint pain Skin Skin: No yellowing of the eye or itchy eyes Psych Psychiatric: No anxiety and No depression Endo Endocrine: No fatigue or weight change Aller/Imm Allergy/Immunologic: No itchy eyes Juan/Lymp Hematologic/Lymphatic: No easy bleeding or easy bruising Exam Const General: cooperative, healthy appearing and comfortable Nutritional Appearance: well nourished Orientation: oriented x3 Eyes Sclera: sclerae normal Resp Effort & Inspection: normal respiratory effort Auscultation: Bilateral: Clear to Auscultation Cardio Rate: regular rate Rhythm: regular rhythm GI Inspection: normal to inspection Auscultation: normal bowel sounds Percussion: normal to percussion Palpation: no hepatosplenomegaly Other: Normal sphincter tone without any signs of fecal impaction. She does have very small external hemorrhoid. There is no tenderness, fissure or any masses palpated. Assessment and Plan Assessment and Plan (1) Hemorrhoids: (2) Pelvic floor dysfunction in female: Status: Acute Plan: Assessment: * Mild fecal Incontinence:?New onset, despite ongoing pelvic floor therapy. * History of Bladder Prolapse:?Status post bladder mesh lift (2007). * Pelvic Floor Dysfunction:?Symptoms persist despite conservative treatment, suggesting potential structural or functional issues. Differential Diagnosis: * Mesh-related complication:?Erosion, retraction, or fibrosis of the bladder mesh could be affecting the posterior pelvic floor, leading to fecal incontinence. * Damage to anal sphincter or pudendal nerve:?Prior vaginal births are a major risk factor for this, and the effects can appear many years later. Pelvic surgery could also cause nerve or muscle injury. * Recurrent or occult posterior prolapse (rectocele):?While her bladder prolapse was repaired, posterior compartment prolapse may have occurred or worsened, affecting bowel function. * Rectovaginal fistula:?This is a possibility with prior pelvic mesh surgery, though it is less common. * Other GI pathology:?Conditions such as Irritable Bowel Syndrome (IBS) or Inflammatory Bowel Disease (IBD) can cause fecal incontinence and need to be considered. * Neurological factors:?Underlying conditions like diabetes, stroke, or degenerative neurological disorders can cause or contribute to incontinence. * Failure of Pelvic Floor Therapy (PFT):?Although PFT is typically effective, a lack of improvement suggests other underlying issues may be present, or that the exercises are being performed incorrectly. Plan * Acknowledged and Validated Patient Concern: She is not frustrated at all as she has improvement with pelvic floor therapy. Diagnostic Workup: * Pelvic MRI with dynamic study (MR Defecography):?This is an appropriate next step given the patient's history and request. It provides high-resolu tion, multi-compartmental imaging of the pelvic floor and can evaluate for mesh complications, rectocele, or other structural defects. * Consider further testing based on specialist evaluation:?This may include anorectal manometry or endoanal ultrasound to assess sphincter function. * Continue Current Therapy (as able):?Encourage the patient to continue pelvic floor therapy and work closely with her therapist, perhaps with biofeedback, while awaiting specialist evaluation. Conservative Management: * Dietary modification:?Kier Boiler on maintaining adequate fiber and fluid intake to manage stool consistency. * Bowel training:?Reinforce bowel training techniques, including scheduled toileting. Medications: Discontinued amoxicillin-pot clavulanate 875-125 mg Discontinued Reason: Pt no longer taking 875 mg PO Q12H 20 TABLETS 0RF Coding Level of Care Code Off vis,new,level 4 Diagnoses Hemorrhoids K64.9 Pelvic floor dysfunction in female M62.89 Clinical Quality Measures Falls Risk Screening/Assistive Devices Have you fallen in the past year?: No 03/03/25 1625 <Electronically signed by Rosalio Agrawal d DO> Date _ Rosalio Friend DO Cosigner Signature: Date (if applicable) CC: ~ [facility] Work Phone: [facility] (narrative)* Diagnostic Procedure Only (Routine) - Pending Review Specialty Diagnoses / Procedures Referred By Anamaria garza Referred To Contact XR IMAGING Diagnoses Left knee pain, unspecified chronicity Procedures XR KNEE GENERAL 4V AP BOTH/PA BOTH/LAT/MERC LEFT RADIOLOGIC EXAM KNEE COMPLETE 4/MORE VIEWS Jamar Albert MD [address] [place] [address] Xr Imaging Referral ID Status Reason Start Date Expiration Date Visits Requested Visits Authorized [id number] Pending Review Auto-Generat ed Referral 09/22/2021 10/22/2022 1 1 [facility] for [facility] (narrative)* Diagnostic Procedure Only (Routine) - Closed Specialty Diagnoses / Procedures Referred By Anamaria garza Referred To Contact XR IMAGING Diagnoses Left knee pain, unspecified chronicity Procedures XR KNEE GENERAL 4V AP BOTH/PA BOTH/LAT/MERC LEFT RADIOLOGIC EXAM KNEE COMPLETE 4/MORE VIEWS Jamar Albert MD [address] [place] [address] Xr Imaging Referral ID Status Reason Start Date Expiration Date V isits Requested Visits Authorized [id number] Closed Auto-Generate d Referral 09/22/2021 10/22/2022 1 1 T [facility] for referral (narrative)* Diagnostic Procedure Only (Routine) - Pending Review Specialty Diagnoses / Procedures Referred By Anamaria t Referred To Contact BR IMAGING Diagnoses Encounter for screening mammogram for malignant neoplasm of breast Procedures BERNARD SCREENING SCREENING MAMMOGRAPHY BI 2-VIEW BREAST INC CAD Marilyn Hair PA-C [address] [place] [address] [facility] [address] [place] [address] Referral ID Status Reason Start Date Expiration Date Visits Requested Visits Authorized [id number] Pending Review Auto-Generat ed Referral 11/23/2021 12/23/2022 1 1 T [facility] for referral (narrative)* Diagnostic Procedure Only (Urgent) - Authorized Specialty Diagnoses / Procedures Referred By Anamaria t Referred To Contact US IMAGING Diagnoses Elevated LFTs Procedures US ABD RT UPPER QUADRANT US ABDOMINAL REAL TIME W/IMAGE LIMITED Marilyn Hair PA-C [address] [place] [address] Us Imaging Referral ID Status Reason Start Date Expiration Date Visits Requested Visits Authorized [id number] Authorized Auto-Generat ed Referral 11/24/2021 12/24/2022 1 1 T [facility] for referral (narrative)* Diagnostic Procedure Only (Urgent) - Closed Specialty Diagnoses / Procedures Referred By Anamaria t Referred To Contact US IMAGING Diagnoses Elevated LFTs Procedures US ABD RT UPPER QUADRANT US ABDOMINAL REAL TIME W/IMAGE LIMITED Marilyn Hair PA-C [address] [place] [address] Us Imaging Referral ID Status Reason Start Date Expiration Date V isits Requested Visits Authorized [id number] Closed Auto-Generate d Referral 11/24/2021 12/24/2022 1 1 [facility] for referral (narrative)* Diagnostic Procedure Only (Routine) - Pending Review Specialty Diagnoses / Procedures Referred By Contac t Referred To Contact XR IMAGING Diagnoses Pain in both knees, unspecified chronicity Procedures XR KNEE GENERAL 4V AP BOTH/PA BOTH/LAT/MERC BILATERAL RADIOLOGIC EXAM KNEE COMPLETE 4/MORE VIEWS Miesha Jefferson PA-C [address] [place] [address] Xr Imaging Referral ID Status Reason Start Date Expiration Date Visits Requested Visits Authorized [id number] Pending Review Auto-Generat ed Referral 12/13/2022 01/12/2024 1 1 [facility] for referral (narrative)* Diagnostic Procedure Only (Routine) - Closed Specialty Diagnoses / Procedures Referred By Contac t Referred To Contact XR IMAGING Diagnoses Pain in both knees, unspecified chronicity Procedures XR KNEE GENERAL 4V AP BOTH/PA BOTH/LAT/MERC BILATERAL RADIOLOGIC EXAM KNEE COMPLETE 4/MORE VIEWS Miesha Jefferson PA-C [address] [place] [address] [place] [id number] Referral ID Status Reason Start Date Expiration Date V isits Requested Visits Authorized [id number] Closed Auto-Generate d Referral 12/13/2022 01/12/2024 1 1 [facility] for referral (narrative)* Outpatient Procedure (Routine) - Pending Review Specialty Diagnoses / Procedures Referred By Contac t Referred To Contact [facility] Diagnoses ASCUS with positive high risk HPV cervical Procedures COLPOSCOPY COLPOSCOPY CERVIX BX CERVIX & ENDOCRV CURRSandy Scales, AMARIS.DIVER HELPER [address] [place] [address] [facility] [address] [place] [address] Referral ID Status Reason Start Date Expiration Date Visits Requested Visits Authorized [id number] Pending Review Auto-Generat ed Referral 07/20/2023 07/19/2024 1 1 [facility] for referral (narrative)* Diagnostic Procedure Only (Routine) - Pending Review Specialty Diagnoses / Procedures Referred By Contac t Referred To Contact BR IMAGING Diagnoses Abnormal mammogram Breast nodule Procedures US BREAST LTD RIGHT US BREAST UNI REAL TIME WITH IMAGE LIMITED Lidya Champion MD [address] [address] [facility] [address] [place] [address] Referral ID Status Reason Start Date Expiration Date Visits Requested Visits Authorized [id number] Pending Review Auto-Generat ed Referral 01/21/2024 08/21/2024 1 1 * Diagnostic Procedure Only (Routine) - Pending Review Specialty Diagnoses / Procedures Referred By Anamaria t Referred To Contact BR IMAGING Diagnoses Abnormal mammogram Breast nodule Procedures BERNARD DIAGNOSTIC RIGHT DIAGNOSTIC MAMMOGRAPHY COMPUTER-AIDED DETCJ UNI Lidya Champion MD [address] [address] [facility] [address] [place] [address] Referral ID Status Reason Start Date Expiration Date Visits Requested Visits Authorized [id number] Pending Review Auto-Generat ed Referral 01/21/2024 08/21/2024 1 1 [facility] for referral (narrative)* Diagnostic Procedure Only (Routine) - Pending Review Specialty Diagnoses / Procedures Referred By Contac t Referred To Contact BR IMAGING Diagnoses Abnormal finding on breast imaging Procedures US BREAST LTD RIGHT US BREAST UNI REAL TIME WITH IMAGE LIMITED Krystal Peña MD [address] [address] [facility] [address] [place] [address] Referral ID Status Reason Start Date Expiration Date Visits Requested Visits Authorized [id number] Pending Review Auto-Generat ed Referral 08/08/2023 09/06/2024 1 1 * Diagnostic Procedure Only (Routine) - Pending Review Specialty Diagnoses / Procedures Referred By Anamaria garza Referred To Contact BR IMAGING Diagnoses Abnormal finding on breast imaging Procedures US BREAST LTD LEFT US BREAST UNI REAL TIME WITH IMAGE LIMITED Krystal Peña MD [address] [address] [facility] [address] [place], [place] [address] [place] [address] Referral ID Status Reason Start Date Expiration Date Visits Requested Visits Authorized [id number] Pending Review Auto-Generat ed Referral 08/08/2023 09/06/2024 1 1 * Diagnostic Procedure Only (Routine) - Authorized Specialty Diagnoses / Procedures Referred By Anamaria garza Referred To Contact BR IMAGING Diagnoses Abnormal finding on breast imaging Procedures BERNARD DIAGNOSTIC BILATERAL DIAGNOSTIC MAMMOGRAPHY COMPUTER-AIDED DETCJ BI Krystal Peña MD [address] [address] [facility] [address] [place] [address] Referral ID Status Reason Start Date Expiration Date Visits Requested Visits Authorized [id number] Authorized Auto-Generat ed Referral 08/08/2023 09/06/2024 1 1 [facility] for referral (narrative)* Outpatient Procedure (Routine) - Pending Review Specialty Diagnoses / Procedures Referred By Anamaria garza Referred To Contact [facility] Diagnoses ASCUS with positive high risk HPV cervical Procedures COLPOSCOPY COLPOSCOPY CERVIX BX CERVIX & ENDOCRV CURRETAGE Saurabh Wetzel MD [address] [place] [address] [facility] [address] [place] [address] Referral ID Status Reason Start Date Expiration Date Visits Requested Visits Authorized [id number] Pending Review Auto-Generat ed Referral 08/11/2023 08/10/2024 1 1 [facility] for referral (narrative)* Outpatient Procedure (Routine) - Pending Review Specialty Diagnoses / Procedures Referred By Anamaria garza Referred To Contact [facility] Diagnoses MARY II (cervical intraepithelial neoplasia II) Procedures OFFICE LEEP COLPOSCOPY CERVIX VAG ELTRD CONIZATION CERVIX Saurabh Wetzel MD [address] [place] [address] [facility] [address] [place] [address] Referral ID Status Reason Start Date Expiration Date Visits Requested Visits Authorized [id number] Pending Review Auto-Generat ed Referral 10/31/2023 10/30/2024 1 1 [facility] for referral (narrative)No reason for [facility] Reliyj for visit Narrative* Initial Evaluation . L knee pain. * Referred by: Marilyn Hair PA-C [facility] Work Phone: Reason for visit Narrative* Diagnostic Procedure Only (Routine) - Closed Specialty Diagnoses / Procedures Referred By Anamaria garza Referred To Contact XR IMAGING Diagnoses Left knee pain, unspecified chronicity Procedures XR KNEE GENERAL 4V AP BOTH/PA BOTH/LAT/MERC LEFT RADIOLOGIC EXAM KNEE COMPLETE 4/MORE VIEWS Jamar Albert MD [address] [place] [address] Xr Imaging Referral ID Status Reason Start Date Expiration Date V isits Requested Visits Authorized [id number] Closed Auto-Generate d Referral 09/22/2021 10/22/2022 1 1 [facility] for visit Narrative* Diagnostic Procedure Only (Routine) - Closed Specialty Diagnoses / Procedures Referred By Anamaria garza Referred To Contact XR IMAGING Diagnoses Pain in both knees, unspecified chronicity Procedures XR KNEE GENERAL 4V AP BOTH/PA BOTH/LAT/MERC BILATERAL RADIOLOGIC EXAM KNEE COMPLETE 4/MORE VIEWS Miesha Jefferson PA-C [address] [place] [address] [place] [id number] Referral ID Status Reason Start Date Expiration Date V isits Requested Visits Authorized [id number] Closed Auto-Generate d Referral 12/13/2022 01/12/2024 1 1 [facility] for visit Narrative* Diagnostic Procedure Only (Routine) - Closed Specialty Diagnoses / Procedures Referred By Contac t Referred To Contact BR IMAGING Diagnoses Abnormal finding on breast imaging Procedures BERNARD DIAGNOSTIC BILATERAL DIAGNOSTIC MAMMOGRAPHY COMPUTER-AIDED DETCJ BI Krystal Peña MD [address] [facility] [address] [place] [address] [facility] Imaging [address] [place] [address] Referral ID Status Reason Start Date Expiration Date V isits Requested Visits Authorized [id number] Closed Auto-Generate d Referral 08/08/2023 09/06/2024 1 1 [facility] for visit Narrative* Diagnostic X-Ray (Routine) - New Request Specialty Diagnoses / Procedures Referred By Anamaria garza Referred To Contact Diagnoses History of total knee arthroplasty, left Procedures XR KNEE LEFT 3 VIEWS Rosalinda Barajas MD [address] [place] [address] Phone: tel: fax: Referral ID Status Reason Start Date Expiration Date V isits Requested Visits Authorized [id number] New Request 09/04/2024 09/29/2025 1 1 [facility] for visit Narrative* Diagnostic Procedure Only (Routine) - Closed Specialty Diagnoses / Procedures Referred By Contac t Referred To Contact BR IMAGING Diagnoses Encounter for screening mammogram for breast cancer Procedures BERNARD SCREENING W MARY SCREENING DIGITAL BREAST TOMOSYNTHESIS BI SCREENING MAMMOGRAPHY BI 2-VIEW BREAST INC Rafaela Tamayo APRN.DIVER HELPER [address] [place] [address] Phone: tel: fax: BR IMAGING [address] [place] [address] Referral ID Status Reason Start Date Expiration Date V isits Requested Visits Authorized [id number] Closed Auto-Generate d Referral 08/29/2024 09/28/2025 1 1 [facility] for visit Narrative* Diagnostic Procedure Only (Routine) - Closed Specialty Diagnoses / Procedures Referred By Rjac t Referred To Contact BR IMAGING Diagnoses Abnormal mammogram Procedures BERNARD DIAGNOSTIC LEFT DIAGNOSTIC MAMMOGRAPHY COMPUTER-AIDED DETCJ UNI Marilyn Hair PA-C [address] [place] [address] Phone: tel: fax: BR IMAGING [address] [place] [address] Referral ID Status Reason Start Date Expiration Date V isits Requested Visits Authorized [id number] Closed Auto-Generate d Referral 12/16/2024 01/15/2026 1 1 [facility] for visit Narrative* Diagnostic Procedure Only (Routine) - Authorized Specialty Diagnoses / Procedures Referred By Anamaria t Referred To Contact BR IMAGING Diagnoses Abnormal mammogram Procedures US BREAST LTD LEFT US BREAST UNI REAL TIME WITH IMAGE LIMITED Marilyn Hair PA-C [address] [place] [address] Phone: tel: fax: BR IMAGING [address] [place] [address] Referral ID Status Reason Start Date Expiration Date Visits Requested Visits Authorized [id number] Authorized Auto-Generat ed Referral 12/16/2024 01/15/2026 1 1 [facility] for visit Narrative* Diagnostic X-Ray (Routine) - New Request Specialty Diagnoses / Procedures Referred By Anamaria t Referred To Contact Diagnoses Hx of total knee arthroplasty, left Procedures XR KNEE LEFT 3 VIEWS Vidal Jewell, BAG BUILDER-DIVER HELPER [address] [place] [address] Phone: tel: fax: Referral ID Status Reason Start Date Expiration Date V isits Requested Visits Authorized [id number] New Request 01/13/2025 02/07/2026 1 1 [employer] Instructions * Patient Instructions - Fortino Chakraborty MD - 12/22/2016 11:50 AM EDT Formatting of this note may be different from the original. Problem List Items Addressed This Visit Respiratory Sinusitis, acute The persistence of symptoms as well as your exam suggest a bacterial infection. The presence or association with air conditioning suggests atypical bacterial infection. in this encounter* Patient Instructions - Luigi Barriga CNP - 04/12/2018 10:09 AM EST Formatting [...] (Completed) in this encounter* Patient Instructions - Fortino Chakraborty MD - 02/27/2017 9:13 AM EDT Formatting of this note may be different from the original. Problem List Items Addressed This Visit Respiratory Allergic rhinitis Evidence on exam of chronic mouth breathing secondary to chronic nasal narrowing. Suggest the use of fexofenadine or Tyrell 180 mg once a day Flonase 1 puff each side twice a day. Suggest frequent use of nasal saline. Suggest simply saline which is an yera-rqi-smyfdco nasal spray Relevant Medications fexofenadine (TYRELL) 180 MG tablet fluticasone (FLONASE) 50 mcg/actuation [...] Fall Prevention Checklist for Older Adults (from [facility]), and make changes as recommended. [...] blankets, or other objects on the floor? A.tool shaper setup operator things that are on the floor. Always keep objects off the floor. Q: Do you have to walk over or around wires or cords (like lamp, telephone, or extension cords)? A. Coil or tape cords and wires next to the wall so you can t trip over them. If needed, have an electrician technician put in another outlet. STAIRS AND STEPS: Look at the stairs you use both inside and outside your home. Q: Are there papers, shoes, books, or other objects on the stairs? A. tool shaper setup operator things on the stairs. Always keep objects off stairs. Q: Are some steps broken or uneven? A. Fix loose or uneven steps. Q: Are you missing a light over the stairway? A. Have an electrician technician put in an overhead light at the top and bottom of the stairs. Q: Do you have only one light switch for your stairs (only at the top or at the bottom of the stairs)? A. Have an electrician technician put in a light switch at the [...] at all the medicines you take, even ujcv-kcz-ygawwav medicines.Some medicines can make you sleepy or [...] lightweight curtains or shades to reduce glare. [place] a contrasting color on the top edge [...] vision, and medications. Classes are offered at [facility]. To find out specifics about a class, please call [phone]. Lei chi: Moving for Better Balance involves low impact exercise. The 12-week class is offered for three hours per week and is led by a trained defensive driving instructor. It is intended for people aged [...] additional resources about fall prevention please contact: [facility] Violence and Injury Prevention Program at [phone] or [email or web address] A Matter of Balance: Managing Concerns about Falls is an evidence based program designed to reduce the fear of falling and increase activity levels of older adults. A trained combat systems operator mine warfare leads 8 two-hour sessions for small groups [...] at home. Classes are offered in all [address] [place] [address] in [place]. For more information about specific classes near you, please visit [email or web address].gov/steadyu/resources/matterofbalance.aspx. Well Visit, Women 50 to 65: Care [...] Log into your personal health record on [email or web address] and enter Y074 in the Education box to learn more about Well Visit, Women 50 to 65: Care Instructions. Current as of: December 15, 2015 Content Version: 11.2 4204-1743 Mobile[employer]Me. Care instructions adapted under license by your healthcare professional. If you have questions about a medical condition or this instruction, always ask your healthcare professional. [employer] disclaims any warranty or liability for your use of this information. in this encounter* Patient Instructions* Tyler No RN - 06/14/2018 9:46 AM EST STEADI Low Risk Patient Instructions: Your Falls Screening today shows that you are at low risk for falls. To further protect yourself from falls and maintain your independence, we recommend: 1. Read through the brochure, What You Can Do to Prevent Falls (from [facility]). 2. Go through the brochure, Check for Safety: A Home Fall Prevention Checklist for Older Adults (from [facility]), and make changes as recommended. [...] blankets, or other objects on the floor? A.tool shaper setup operator things that are on the floor. Always keep objects off the floor. Q: Do you have to walk over or around wires or cords (like lamp, telephone, or extension cords)? A. Coil or tape cords and wires next to the wall so you can t trip over them. If needed, have an electrician technician put in another outlet. STAIRS AND STEPS: Look at the stairs you use both inside and outside your home. Q: Are there papers, shoes, books, or other objects on the stairs? A. tool shaper setup operator things on the stairs. Always keep objects off stairs. Q: Are some steps broken or uneven? A. Fix loose or uneven steps. Q: Are you missing a light over the stairway? A. Have an electrician technician put in an overhead light at the top and bottom of the stairs. Q: Do you have only one light switch for your stairs (only at the top or at the bottom of the stairs)? A. Have an electrician technician put in a light switch at the [...] at all the medicines you take, even tvym-ldz-bfexrzf medicines.Some medicines can make you sleepy or [...] lightweight curtains or shades to reduce glare. [place] a contrasting color on the top edge [...] vision, and medications. Classes are offered at [facility]. To find out specifics about a class, please call [phone]. Lei chi: Moving for Better Balance involves low impact exercise. The 12-week class is offered for three hours per week and is led by a trained defensive driving instructor. It is intended for people aged [...] additional resources about fall prevention please contact: [facility] Violence and Injury Prevention Program at [phone] or [email or web address] A Matter of Balance: Managing Concerns about Falls is an evidence based program designed to reduce the fear of falling and increase activity levels of older adults. A trained combat systems operator mine warfare leads 8 two-hour sessions for small groups [...] at home. Classes are offered in all [address] [place] [address] in [place]. For more information about specific classes near you, please visit [email or web address].gov/steadyu/resources/matterofbalance.aspx. Heart-Healthy Diet: Care Instructions Your Care Instructions [...] Log into your personal health record on [email or web address] and enter V137 in the Education box to learn more about Heart-Healthy Diet: Care Instructions. Current as of: December 17, 2017 Content Version: 11.9 4889-9702 Mobile[employer]. Care instructions adapted under license by your healthcare professional. If you have questions about a medical condition or this instruction, always ask your healthcare professional. [employer] disclaims any warranty or liability for your [...] Log into your personal health record on [email or web address] and enter U654 in the Education box to learn more about High-Fiber Diet: Care Instructions. Current as of: August 23, 2017 Content Version: 11.9 5780-8095 [employer]. Care instructions adapted under license by your healthcare professional. If you have questions about a medical condition or this instruction, always ask your healthcare professional. [employer] disclaims any warranty or liability for your [...] with patient Pharmacy/Equipment Co. (DME) [facility] [address] [place] [id number] Health Maintenance Topic Date Due MAMMOGRAM 1950 [...] DEXA Axial in this encounter* Patient Instructions* Basilio Pitts PA-C - 10/19/2018 2:39 PM EDT [...] your doctor if you can take an tdaz-qrl-qhtvmxd medicine. Rest and protect your knee. Take [...] Log into your personal health record on [email or web address] and enter K195 in the Education box to learn more about Knee Pain or Injury: Care Instructions. Current as of: February 18, 2018 Content Version: 12.0 3047-1955 [employer]. Care instructions adapted under license by your healthcare professional. If you have questions about a medical condition or this instruction, always ask your healthcare professional. [employer] disclaims any warranty or liability for your [...] your doctor if you can take an gbvh-oep-rtmybbv medicine. Put ice or a cold pack [...] Log into your personal health record on [email or web address] and enter Q624 in the Education box to learn more about Musculoskeletal Pain: Care Instructions. Current as of: October 29, 2017 Content Version: 12.0 6995-6709 [employer]. Care instructions adapted under license by your healthcare professional. If you have questions about a medical condition or this instruction, always ask your healthcare professional. [employer] disclaims any warranty or liability for your [...] care for yourself at home? Take an iqsf-ewb-btypbmm pain medicine, such as acetaminophen (Tylenol), ibuprofen (Advil, Motrin),or naproxen (Aleve). Read and follow all instructions on the label. If the doctor prescribed antibiotics, take them as directed. Do not stop taking them just because you feel better. You need to take the full course of antibiotics. Be careful when taking ddzv-phs-qxgjmgy cold or flu medicines and Tylenol at [...] Log into your personal health record on [email or web address] and enter I933 in the Education box to learn more about Sinusitis: Care Instructions. Current as of: March 18, 2018 Content Version: 12.0 2884-3763 [employer]Me. Care instructions adapted under license by your healthcare professional. If you have questions about a medical condition or this instruction, always ask your healthcare professional. [employer] disclaims any warranty or liability for your use of this information. documented in this encounter* Patient Instructions* Luigi Barriga CNP - 10/30/2018 10:42 AM EDT Problem [...] pollen counts are high. Use a vacuum grain cleaner and transfer operator with aHEPA filter or a double-thickness filter [...] Log into your personal health record on [email or web address] and enter W171 in the Education box to learn more about Allergies: Care Instructions. Current as of: November 22, 2017 Content Version: 12.0 2457-1724 [employer]. Care instructions adapted under license by your healthcare professional. If you have questions about a medical condition or this instruction, always ask your healthcare professional. [employer] disclaims any warranty or liability for your use of this information. documented in this encounter* Patient Instructions* Luigi Barriga CNP - 06/13/2018 8:53 AM EST Problem [...] symptoms. You can take a Claritin or Tyrell daily to help with drainage. Relevant Medications amoxicillin-clavulanate (AUGMENTIN) 875-125 mg per tablet Allergic rhinitis Start taking Claritin, if this does not seem to help you can take Tyrell. Also recommend Nasacort or Flonase when you [...] pain, unspecified type Procedures ECG 12 Lead SpringLuigi CNP [address] [place] [address] Status Reason Specialty Diagnoses / Procedures Referred By Contact Referred To Contact Authorized General Surgery Diagnoses Wellness examination Fortino Chakraborty MD [address] [place] [address] Bettina Myrick MD [address] [place] [address] Status Reason Specialty Diagnoses / Procedures Referred By Contact Referred To Contact Authorized Radiology Diagnoses Disorder of bone and cartilage Procedures XR Bone Density DEXA Axial Fortino Chakraborty MD [address] [place] [address] Specialty Diagnoses / Procedures Referred By Contac t Referred To Contact Diagnoses Acute pharyngitis, unspecified etiology Chris Duran, [address] [place] [address] Referral ID Status Reason Start Date Expiration Date V isits Requested Visits Authorized [id number] Pending Review 1 1 Specialty Diagnoses / Procedures Referred By Contac t Referred To Contact Radiology Diagnoses Encounter for screening mammogram for malignant neoplasm of breast Procedures BI mammo bilateral screening tomosynthesis BI mammo bilateral screening tomosynthesis Bhanu Meng MD [address] [place] [phone] Referral ID Status Reason Start Date Expiration Date Visits Requested Visits Authorized [id number] Authorized Perform Procedure 06/20/2023 06/19/2024 1 1 Specialty Diagnoses / Procedures Referred By Contac t Referred To Contact General Surgery Diagnoses Abnormal mammogram Breast nodule Procedures CONSULT TO GENERAL SURGERY OFFICE/OUTPATIENT [facility] 60 MINUTES Rafaela [place] APRN.[facility] [address] [place] [address] Lidya Champion MD [address] [place] [address] Referral ID Status Reason Start Date Expiration Date Visits Requested Visits Authorized [id number] Authorized PCP Requested Referral 06/29/2023 06/28/2024 1 1 Specialty Diagnoses / Procedures Referred By Contac t Referred To Contact Diagnoses Left knee pain, unspecified chronicity Procedures XR KNEE LEFT 4+ VIEWS Rosalinda Barajas MD [address] [place] [id number] Referral ID Status Reason Start Date Expiration Date V isits Requested Visits Authorized [id number] Pending Review 12/18/2023 01/11/2025 1 1 Specialty Diagnoses / Procedures Referred By Contac t Referred To Contact Diagnoses Left knee pain, unspecified chronicity Procedures XR BONE LENGTH STUDY Rosalinda Barajas MD [address] [place] [id number] Referral ID Status Reason Start Date Expiration Date V isits Requested Visits Authorized [id number] Pending Review 12/18/2023 01/11/2025 1 1 Specialty Diagnoses / Procedures Referred By Contac t Referred To Contact Diagnoses Pre-op testing Procedures ECG Noreen Whalen PA-C [address] [place] [address] Referral ID Status Reason Start Date Expiration Date V isits Requested Visits Authorized [id number] New Request 01/02/2024 01/26/2025 1 1 Specialty Diagnoses / Procedures Referred By Anamaria garza Referred To Contact Physical Therapy Diagnoses Acute postoperative pain of left knee Beth Quinn Renae [address] [place] [address] [facility] [address] [place] [address] Referral ID Status Reason Start Date Expiration Date V isits Requested Visits Authorized [id number] New Request 01/17/2024 02/10/2025 1 1 Scheduling Instructions . Specialty Diagnoses / Procedures Referred By Anamaria garza Referred To Contact Diagnoses Hx of total knee arthroplasty, right Procedures XR KNEE LEFT 3 VIEWS Vidal Jewell APRN-CNP [address] [place] [address] Referral ID Status Reason Start Date Expiration Date V isits Requested Visits Authorized [id number] New Request 02/06/2024 03/02/2025 1 1 History of Present Illness * Luigi Barriga, DIVER HELPER - 04/12/2018 9:38 AM EST Formatting of this note may be different from the original. Subjective Patient ID: Liam King is a 67 y.o. female. Patient is [...] for the 04/12/18 encounter (Office Visit) with Luigi Barriga CNP Medication Sig Dispense Refill cholecalciferol, vitamin D3, 1,000 unit capsule Take 1,000 Units by mouth Takes 1-2 tablets daily. comp stocking, knee,long,small Misc 1 Units by Miscellaneous route daily. 2 each 3 fluticasone (FLONASE) 50 mcg/actuation nasal spray Instill 2 (two) sprays into each nostril daily. 16 g 11 hpbgyhqztnc-xgdvxhrkd-hht C-Mn 500-400 mg cap Take 1 capsule by mouth. meloxicam (MOBIC) 7.5 MG tablet Take 1 (one) tablet (7.5 mg total) by mouth daily . 30 tablet 11 [DISCONTINUED] meloxicam (MOBIC) 7.5 MG tablet Take 1 (one) tablet (7.5 mg total) by mouth daily. 30 tablet 11 Allergies Allergen Reactions Cat Dander Itching Demerol [Meperidine] GI Intolerance Agrawal Gus Other (See Comments) NASAL CONGESTION Ragweed Other (See Comments) NASAL CONGESTION Past Medical History: Diagnosis Date Colon cancer screening [facility]/Dr. Bijan Carrillo Colon polyp 09/01/2016 [facility]/Dr. Bijan Carrillo Small polyp 3mm Hemorrhoids [facility]/Dr. Bijan Carrillo Rectum revealed small internal hemorrhoids Left tennis elbow 02/08/2018 Leg pain, bilateral Sinus congestion Tubular adenoma 09/01/2016 [facility]/Dr. Bijan Carrillo Varicose veins of both lower extremities Past Surgical History: Procedure Laterality Date BLADDER SUSPENSION COLONOSCOPY W/ BIOPSIES 09/01/2017 Dr Carrillo PAP TEST 02/2017 [facility]/Dr. Bijan Carrillo SCLEROTHERAPY Bilateral 2000; 2009 DR MADRIGAL/DR NGUYEN VAGINAL PROLAPSE REPAIR 2006 VEIN SURGERY Right 10/24/2000 High ligation & division greater saphenous vein-Dr. Madrigal VEIN SURGERY Bilateral 1975 bilateral stripping-[facility] VEIN SURGERY Left 2000 ligation & division [...] effects of the medications. in this encounter* Fortino Chakraborty MD - 02/27/2017 9:13 AM EDT Formatting of this note may be different from the original. Problem List Items Addressed This Visit Respiratory Allergic rhinitis Evidence on exam of chronic mouth breathing secondary to chronic nasal narrowing. Suggest the use of fexofenadine or Tyrell 180 mg once a day Flonase 1 puff each side twice a day. Suggest frequent use of nasal saline. Suggest simply saline which is an nhlo-ole-gbgovve nasal spray Other Wellness examination Sounds like [...] the fact that she was and the [place] [facility] 2 weeks ago for sinusitis. She [...] narrowing. Suggest the use of fexofenadine or Tyrell 180 mg once a day Flonase 1 puff each side twice a day. Suggest frequent use of nasal saline. Suggest simply saline which is an xdxe-txt-fqxhroq nasal spray Other Wellness examination Sounds like [...] Risk for falls - Primary * Dee Garay LPN - 02/27/2017 8:59 AM EDT ER visit in [place] 02/22 for sinus issues. Put on Augmentin 875-125 in this encounter* Tyler No RN - 06/14/2018 9:46 AM EST [...] rubs, clicks or gallops Subjective Liam Jeff King is a 67 y.o. female who presents for a Medicare Wellness Visit. Medicare Risk Assessment Advanced Care Planning Do you have a POLST (physician order for life sustaining treatment)?: (!) No Do you have an advanced directive (living will and/or durable power of retail solar advisor for health care)?: Living will(copy requested) Pain/Social/Activity [...] drive after drinking or ride with a salesperson driver who has been drinking or is [...] Three Word Registration Version Used: Version 1: [place], [place], Chair Step 2: Clock Drawing Step 2 [...] Medical History: Diagnosis Date Colon polyp 09/01/2016 [facility]/Dr. Bijan Carrillo Small polyp 3mm Hemorrhoids 09/01/2016 [facility]/Dr. Bijan Carrillo Rectum revealed small internal hemorrhoids Left tennis elbow 02/08/2018 Tubular adenoma 09/01/2016 [facility]/Dr. Bijan Carrillo Varicose veins of both lower extremities 1974 Past Surgical History: Procedure Laterality Date BLADDER SUSPENSION 2006 COLONOSCOPY W/ BIOPSIES 09/01/2017 Dr Carrillo PAP TEST 02/2017 [facility]/Dr. Bijan Carrillo SCLEROTHERAPY Bilateral 2000; 2009 DR MADRIGAL/DR NGUYEN VAGINAL PROLAPSE REPAIR 2006 VEIN SURGERY Right 10/24/2000 High ligation & division greater saphenous vein-Dr. Madrigal VEIN SURGERY Bilateral 1975 bilateral stripping-[facility] VEIN SURGERY Left 2000 ligation & division [...] daily as needed .) 16 g 11 ggvivvfvugk-kabntfzfy-kil C-Mn 500-400 mg cap Take 1 capsule [...] Dander Itching Demerol [Meperidine] GI Intolerance Agrawal Gsu Other (See Comments) NASAL CONGESTION Ragweed Other (See Comments) NASAL CONGESTION Care Team Patient Care Team: Fortino Chakraborty MD as PCP - General (Family Medicine) Pharmacy / Equipment Co. (DME) [facility] - [address] [address] Objective Blood pressure 128/73, pulse 85, temperature 97.5 F (36.4 C), resp. rate 16, height 5' 1, weight 55.8 kg (123 lb), SpO2 95 [...] Patient's Ambulatory Status Is Patient Ambulatory? Y TAISHAADI Protocol Fell in past year 0 (No) [...] assessment in 12 months. in this encounter* Basilio Pitts PA-C - 10/19/2018 2:05 PM EDT [...] social history, past surgicalhistory and problem list. [facility] reviewed briefly today, patient to go home [...] Medical History: Diagnosis Date Colon polyp 09/01/2016 [facility]/Dr. Bijan Carrillo Small polyp 3mm Hemorrhoids 09/01/2016 [facility]/Dr. Bijan Carrillo Rectum revealed small internal hemorrhoids Left tennis elbow 02/08/2018 Tubular adenoma 09/01/2016 [facility]/Dr. Bijan Carrillo Varicose veins of both lower extremities 1974 Past Surgical History: Procedure Laterality Date BLADDER SUSPENSION 2005 COLONOSCOPY W/ BIOPSIES 09/01/2017 Dr Carrillo PAP TEST 02/2017 [facility]/Dr. Bijan Carrillo SCLEROTHERAPY Bilateral 2000; 2009 DR MADRIGAL/DR NGUYEN VAGINAL PROLAPSE REPAIR 2006 VEIN SURGERY Right 10/24/2000 High ligation & division greater saphenous vein-Dr. Madrigal VEIN SURGERY Bilateral 1975 bilateral stripping-[facility] VEIN SURGERY Left 2000 ligation & division [...] 2 (two) sprays into each nostril daily. UNDAZEWGJGS-[id number]-GRC C-MN 500-400 MG CAP Take 1 capsule by mouth. MELOXICAM (MOBIC) 7.5 MG TABLET Take 1 (one) tablet (7.5 mg total) by mouth daily . Modified Medications No medications on file Discontinued Medications No medications on file Allergies as of 10/19/2018 - Reviewed 10/19/2018 Allergen Reaction Noted Cat dander Itching 01/14/2016 Demerol [meperidine] GI Intolerance 09/13/2017 Agrawal gus Other (See Comments) 01/14/2016 Ragweed Other (See [...] of the medications. documented in this encounter* Luigi Barriga CNP - 10/30/2018 10:29 AM EDT Subjective [...] Medical History: Diagnosis Date Colon polyp 09/01/2016 [facility]/Dr. Bijan Carrillo Small polyp 3mm Hemorrhoids 09/01/2016 [facility]/Dr. Bijan Carrillo Rectum revealed small internal hemorrhoids Left tennis elbow 02/08/2018 Tubular adenoma 09/01/2016 [facility]/Dr. Bijan Carrillo Varicose veins of both lower extremities 1974 Past Surgical History: Procedure Laterality Date BLADDER SUSPENSION 2005 COLONOSCOPY W/ BIOPSIES 09/01/2017 Dr Carrillo PAP TEST 02/2017 [facility]/Dr. Bijan Carrillo SCLEROTHERAPY Bilateral 2000; 2009 DR MADRIGAL/DR NGUYEN VAGINAL PROLAPSE REPAIR 2006 VEIN SURGERY Right 10/24/2000 High ligation & division greater saphenous vein-Dr. Madrigal VEIN SURGERY Bilateral 1975 bilateral stripping-[facility] VEIN SURGERY Left 2000 ligation & division [...] 2 (two) sprays into each nostril daily. OXCEDAKVADO-[id number]-KNB C-MN 500-400 MG CAP Take 1 capsule [...] Dander Itching Demerol [Meperidine] GI Intolerance Agrawal Gus Other (See Comments) NASAL CONGESTION Ragweed Other [...] of the medications. documented in this encounter* Luigi Barriga CNP - 06/13/2018 8:39 AM EST Subjective Patient ID: Liam King is a 67 y.o. female. Was treated [...] day for 10 days . Started by: Luigi Barriga CNP CHANGE how you take these medications [...] Misc 1 Units by Miscellaneous route daily. dynbbspsrkx-kkkwctyuv-kfw C-Mn 500-400 mg Cap Where to Get Your Medications These medications were sent to [facility] [place] [id number] [address] amoxicillin-clavulanate 875-125 mg per tablet Allergies Allergen Reactions Cat Dander Itching Demerol [Meperidine] GI Intolerance Agrawal Gus Other (See Comments) NASAL CONGESTION Ragweed Other (See Comments) NASAL CONGESTION Past Medical History: Diagnosis Date Colon polyp 09/01/2016 [facility]/Dr. Bijan Carrillo Small polyp 3mm Hemorrhoids 09/01/2016 [facility]/Dr. Bijan Carrillo Rectum revealed small internal hemorrhoids Left tennis elbow 02/08/2018 Tubular adenoma 09/01/2016 [facility]/Dr. Bijan Carrillo Varicose veins of both lower extremities 1974 Past Surgical History: Procedure Laterality Date BLADDER SUSPENSION 2006 COLONOSCOPY W/ BIOPSIES 09/01/2017 Dr Carrillo PAP TEST 02/2017 [facility]/Dr. Bijan Carrillo SCLEROTHERAPY Bilateral 2000; 2009 DR MADRIGAL/DR NGUYEN VAGINAL PROLAPSE REPAIR 2006 VEIN SURGERY Right 10/24/2000 High ligation & division greater saphenous vein-Dr. Madrigal VEIN SURGERY Bilateral 1975 bilateral stripping-[facility] VEIN SURGERY Left 2000 ligation & division [...] symptoms. You can take a Claritin or Tyrell daily to help with drainage. Relevant Medications amoxicillin-clavulanate (AUGMENTIN) 875-125 mg per tablet Allergic rhinitis Start taking Claritin, if this does not seem to help you can take Tyrell. Also recommend Nasacort or Flonase when you [...] FoundDocuments on File Type Date Recorded Patient Compensation Associate Expl anation Advance Directives and Living Will Documents on File Type Date Recorded Patient Compensation Associate Expl anation Advance Directives and Livin g Will 10/27/2020 10:53 AM Advance Directive Response Recorded Date/ Time Living Will Yes February 21, 2017 7:14pm Power of Licensing Worker Yes January 7:14pm Date Activated Date Inactivated Comments 01/17/2024 9:24 AM Chief Complaint and Reason for Visit Chief Complaint RT BREAST ABN MAMM Chief Complaint Admit Date PROLAPSE RX HERE February 25, 2025 8:00am Hemorrhoids March 03, 2025 7: 42am Reason for Visit Admit Date Pelvic floor dysfunction in female Octob er 2024 7:42am Hemorrhoids March 03, 2025 7: 42am Additional Source Comments Reason for Visit (unrecogniz ed section and content) Reason Comments Sinusitis >2 weeks nosebleeds x2 using Arm Pain left elbow Reason Comments Gynecologic Exam Sinus issues Fall [...] HIGH MDM 60-74 MINUTES Marilyn Hair PA-C [address] [place] [address] Referral ID Status Reason Start Date Expiration Date V isits Requested Visits Authorized [id number] Closed PCP Requested Referral 08/06/2021 08/06/2022 1 1 Reason Comments Results Reason Comments Medicare Wellness Exam Reason Comments Results Reason Comments Radiology US Specialty Diagnoses / Procedures Referred By Anamaria garza Referred To Contact US IMAGING Diagnoses Elevated LFTs Procedures US ABD RT UPPER QUADRANT US ABDOMINAL REAL TIME W/IMAGE LIMITED Marilyn Hair PA-C [address] [place] [address] Us Imaging Referral ID Status Reason Start Date Expiration Date V isits Requested Visits Authorized [id number] Closed Auto-Generate d Referral 11/24/2021 12/24/2022 1 1 Reason Comments Recheck Reason Comments Patient Question Reason Comments Medication Request Reason Comments Letter Reason Onset Date Comments [facility] 04/20/2022 [facility] PCSA Reason Onset Date Comments cdm 05/17/2022 enrollment Reason Onset Date Comments [facility] 07/04/2022 [facility] [place] [facility]SA Reason Comments Follow Up 6 month Reason Comments Follow Up Bp 07/18/22 Reason Onset Date Comments [facility] 08/17/2022 ACO Care Gaps Reason Comments work excuse Reason Comments Sinusitis Pressure, headache, dizziness since Monday Reason Comments Lab Orders Reason Comments Established Patient Knee Pain Reason Comments Medicare Wellness Exam Reason Comments Patient Update Reason Comments Recheck Blood pressure Reason Onset Date Comments [facility] 03/07/2023 ACO CARE GAPS Reason Comments Sore Throat Reason Onset Date Comments Opened In Error 05/09/2023 Reason Onset Date Comments [facility] 05/09/2023 ACO CARE GAPS Reason Comments GERD Pt comes in for hear t burn x 30 mins. 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 She states she is having a burning sensation from her neck to her chest. Pt denies any numbness or SOB Specialty Diagnoses / Procedures Referred By Anamaria garza Referred To Contact Radiology Diagnoses Encounter for screening mammogram for malignant neoplasm of breast Procedures BI mammo bilateral screening tomosynthesis BI mammo bilateral screening tomosynthesis Bhanu Meng MD [address] [place] [phone] Referral ID Status Reason Start Date Expiration Date Visits Requested Visits Authorized [id number] Authorized Perform Procedure 06/20/2023 06/19/2024 1 1 Reason Comments Follow Up Reason Comments New Patient Reason Comments Consult Right breast biopsy Specialty Diagnoses / Procedures Referred By Anamaria garza Referred To Contact General Surgery Diagnoses Abnormal mammogram Breast nodule Procedures CONSULT TO GENERAL SURGERY OFFICE/OUTPATIENT [facility] 60 MINUTES Rafaela [place] APRN.DIVER HELPER [address] [place] [address] Lidya Champion MD [facility] [place] [address] Referral ID Status Reason Start Date Expiration Date V isits Requested Visits Authorized [id number] Closed PCP Requested Referral 06/29/2023 06/28/2024 1 1 Reason Comments F/U 6 months Reason Comments Colposcopy Specialty Diagnoses / Procedures Referred By Contac t Referred To Contact [facility] Diagnoses ASCUS with positive high risk HPV cervical Procedures COLPOSCOPY COLPOSCOPY CERVIX BX CERVIX & ENDOCRV CURRETAGE Sandy De Leon, BAG BUILDER.DIVER HELPER [address] [place] [address] [address] Referral ID Status Reason Start Date Expiration Date V isits Requested Visits Authorized [id number] Closed Auto-Generate d Referral 07/20/2023 07/19/2024 1 1 Reason Comments Orders Reason Comments Patient Update Mammogram cancelled Reason Comments Knee Pain Was taking Diclofena c. Causing severe diarrhea. Stopped med about 3 weeks ago. GI issues have subsided. Started on Ketorolac per . Reason Comments Flu Symptoms Pt comes in for cold /flu symptoms x yesterday. Pt states that she has been having sinus congestion, headaches, sore throat and bilateral ear discomfort. Reason Comments leep Specialty Diagnoses / Procedures Referred By Contac t Referred To Contact [facility] Diagnoses High grade squamous intraepithelial lesion (HGSIL), grade 2 MARY, on biopsy of cervix Procedures OFFICE LEEP COLPOSCOPY CERVIX VAG ELTRD CONIZATION CERVIX Saurabh Wetzel MD [address] [place] [address] [facility] [address] [place] [address] Referral ID Status Reason Start Date Expiration Date V isits Requested Visits Authorized [id number] Closed Auto-Generate d Referral 09/21/2023 09/19/2024 1 1 Specialty Diagnoses / Procedures [facility] To Contact Diagnoses Left knee pain, unspecified chronicity Procedures XR KNEE LEFT 4+ VIEWS Rosalinda Barajas MD [address] [place] [address] Referral ID Status Reason Start Date Expiration Date V isits Requested Visits Authorized [id number] Pending Review 12/18/2023 01/11/2025 1 1 Reason Comments Pain Reason Comments Preoperative Assessment LTKA 01/16 SAF Pg PAT/CAMP Reason Comments Pre-Op Exam Left knee replacemen t Specialty Diagnoses / Procedures Referred By Contac t Referred To Contact Diagnoses Osteoarthritis of left knee, unspecified osteoarthritis type Osteoarthritis of left knee, unspecified osteoarthritis type [M17.12] Procedures AL ARTHRP KNE CONDYLE&PLATU MEDIAL&LAT COMPARTMENTS ARTHROPLASTY KNEE TOTAL Rosalinda Barajas MD [address] [place] [address] Referral ID Status Reason Start Date Expiration Date Visits Re quested Visits Authorized [id number] 12/29/2023 1 1 Specialty Diagnoses / Procedures Referred By Contac t Referred To Contact Diagnoses Hx of total knee arthroplasty, right Procedures XR KNEE LEFT 3 VIEWS Vidal Jewell APRN-MARK [address] [place] [address] Referral ID Status Reason Start Date Expiration Date V isits Requested Visits Authorized [id number] New Request 02/06/2024 03/02/2025 1 1 Reason Comments Post Op Visit Reason Onset Date Comments Refill Request 02/26/2024 Reason Comments Follow Up Reason Comments Flu Symptoms Pt states 3 to 4 day s ago she started to feel ill. Pt states she started to cough up yellow phlegm and felt very congested with sore throat and painful ears. Pt denies fevers and SOB. Reason Comments Appointment Reason Comments Follow Up 6 months Reason Onset Date Comments Gynecologic Exam Sinus issues Fall Risk Screening 02/27/2017 Reason Comments Follow Up Reason Comments Medication Problem Reason Comments Well Woman Reason Onset Date Comments mamm results 12/16/2024 Reason Comments Mammogram Result Call Back Reason Onset Date Comments Results 01/21/2025 Reason Comments Follow-up Assessment & Plan Note - SpringLuigi CNP - 04/12/2018 10:09 AM ESTAssessment & Plan Note - SpringLuigi CNP - 04/12/2018 10:07 AM EST Miscellaneous [...] not seem to help you can take Tyrell. Also recommend Nasacort or Flonase when you [...] symptoms. You can take a Claritin or Tyrell daily to help with drainage. ANin this encounter INFORMATION SOURCE (unrecogn ized section and content) DATE CREATED AUTHOR 05/07/2018 [facility] DATE CREATED AUTHOR AUTHOR'S ORGANIZ ATION 12/13/2018 [facility] DATE CREATED AUTHOR AUTHOR'S ORGANIZ ATION 06/11/2019 [facility] DATE CREATED AUTHOR AUTHOR'S ORGANIZ ATION 12/15/2019 [facility] DATE CREATED AUTHOR AUTHOR'S ORGANIZ ATION 11/02/2020 [facility] DATE CREATED AUTHOR AUTHOR'S ORGANIZ ATION 01/01/[address] [facility] DATE CREATED AUTHOR AUTHOR'S ORGANIZ ATION 05/31/2021 [facility] DATE CREATED AUTHOR AUTHOR'S ORGANIZ ATION 01/21/2023 [facility] DATE CREATED AUTHOR AUTHOR'S ORGANIZ ATION 06/08/2023 [facility] DATE CREATED AUTHOR AUTHOR'S ORGANIZ ATION 09/06/2023 [facility] DATE CREATED AUTHOR AUTHOR'S ORGANIZ ATION 05/18/2024 [facility] DATE CREATED AUTHOR AUTHOR'S ORGANIZ ATION 01/21/2025 [facility] DATE CREATED AUTHOR AUTHOR'S ORGANIZ ATION 01/31/2025 [facility] DATE CREATED AUTHOR AUTHOR'S ORGANIZ ATION 03/19/2025 [facility] <item><item><item> Privacy Markings (unrecogniz ed section [...] or prosecute any alcohol or drug abuse patient.[facility] the event this information is protected by the Federal Confidentiality of Alcohol and Drug Abuse Patient Records regulations: The Federal rules restrict any use of the information to criminally investigate or prosecute any alcohol or drug abuse patient.[facility] the event this information is protected by the Federal Confidentiality of Alcohol and Drug Abuse Patient Records regulations: The Federal rules restrict any use of the information to criminally investigate or prosecute any alcohol or drug abuse patient.[facility] the event this information is protected by the Federal Confidentiality of Alcohol and Drug Abuse Patient Records regulations: The Federal rules restrict any use of the information to criminally investigate or prosecute any alcohol or drug abuse patient.[facility] the event this information is protected by the Federal Confidentiality of Alcohol and Drug Abuse Patient Records regulations: The Federal rules restrict any use of the information to criminally investigate or prosecute any alcohol or drug abuse patient.[facility] the event this information is protected by the Federal Confidentiality of Alcohol and Drug Abuse Patient Records regulations: The Federal rules restrict any use of the information to criminally investigate or prosecute any alcohol or drug abuse patient.[facility] the event this information is protected by the Federal Confidentiality of Alcohol and Drug Abuse Patient Records regulations: The Federal rules restrict any use of the information to criminally investigate or prosecute any alcohol or drug abuse patient.[facility] the event this information is protected by the Federal Confidentiality of Alcohol and Drug Abuse Patient Records regulations: The Federal rules restrict any use of the information to criminally investigate or prosecute any alcohol or drug abuse patient.[facility] the event this information is protected by the Federal Confidentiality of Alcohol and Drug Abuse Patient Records regulations: The Federal rules restrict any use of the information to criminally investigate or prosecute any alcohol or drug abuse patient.[facility] the event this information is protected by the Federal Confidentiality of Alcohol and Drug Abuse Patient Records regulations: The Federal rules restrict any use of the information to criminally investigate or prosecute any alcohol or drug abuse patient.[facility] the event this information is protected by the Federal Confidentiality of Alcohol and Drug Abuse Patient Records regulations: The Federal rules restrict any use of the information to criminally investigate or prosecute any alcohol or drug abuse patient.[facility] the event this information is protected by the Federal Confidentiality of Alcohol and Drug Abuse Patient Records regulations: The Federal rules restrict any use of the information to criminally investigate or prosecute any alcohol or drug abuse patient.[facility] the event this information is protected by the Federal Confidentiality of Alcohol and Drug Abuse Patient Records regulations: The Federal rules restrict any use of the information to criminally investigate or prosecute any alcohol or drug abuse patient.[facility] the event this information is protected by the Federal Confidentiality of Alcohol and Drug Abuse Patient Records regulations: The Federal rules restrict any use of the information to criminally investigate or prosecute any alcohol or drug abuse patient.[facility] the event this information is protected by the Federal Confidentiality of Alcohol and Drug Abuse Patient Records regulations: The Federal rules restrict any use of the information to criminally investigate or prosecute any alcohol or drug abuse patient.[facility] the event this information is protected by the Federal Confidentiality of Alcohol and Drug Abuse Patient Records regulations: The Federal rules restrict any use of the information to criminally investigate or prosecute any alcohol or drug abuse patient.[facility] the event this information is protected by the Federal Confidentiality of Alcohol and Drug Abuse Patient Records regulations: The Federal rules restrict any use of the information to criminally investigate or prosecute any alcohol or drug abuse patient.[facility] the event this information is protected by the Federal Confidentiality of Alcohol and Drug Abuse Patient Records regulations: The Federal rules restrict any use of the information to criminally investigate or prosecute any alcohol or drug abuse patient.[facility] the event this information is protected by the Federal Confidentiality of Alcohol and Drug Abuse Patient Records regulations: The Federal rules restrict any use of the information to criminally investigate or prosecute any alcohol or drug abuse patient.[facility] the event this information is protected by the Federal Confidentiality of Alcohol and Drug Abuse Patient Records regulations: The Federal rules restrict any use of the information to criminally investigate or prosecute any alcohol or drug abuse patient.[facility] the event this information is protected by the Federal Confidentiality of Alcohol and Drug Abuse Patient Records regulations: The Federal rules restrict any use of the information to criminally investigate or prosecute any alcohol or drug abuse patient.[facility] the event this information is protected by the Federal Confidentiality of Alcohol and Drug Abuse Patient Records regulations: The Federal rules restrict any use of the information to criminally investigate or prosecute any alcohol or drug abuse patient.[facility] the event this information is protected by the Federal Confidentiality of Alcohol and Drug Abuse Patient Records regulations: The Federal rules restrict any use of the information to criminally investigate or prosecute any alcohol or drug abuse patient.[facility] the event this information is protected by the Federal Confidentiality of Alcohol and Drug Abuse Patient Records regulations: The Federal rules restrict any use of the information to criminally investigate or prosecute any alcohol or drug abuse patient.[facility] the event this information is protected by the Federal Confidentiality of Alcohol and Drug Abuse Patient Records regulations: The Federal rules restrict any use of the information to criminally investigate or prosecute any alcohol or drug abuse patient.[facility] the event this information is protected by the Federal Confidentiality of Alcohol and Drug Abuse Patient Records regulations: The Federal rules restrict any use of the information to criminally investigate or prosecute any alcohol or drug abuse patient.[facility] the event this information is protected by the Federal Confidentiality of Alcohol and Drug Abuse Patient Records regulations: The Federal rules restrict any use of the information to criminally investigate or prosecute any alcohol or drug abuse patient.[facility] the event this information is protected by the Federal Confidentiality of Alcohol and Drug Abuse Patient Records regulations: The Federal rules restrict any use of the information to criminally investigate or prosecute any alcohol or drug abuse patient.[facility] the event this information is protected by the Federal Confidentiality of Alcohol and Drug Abuse Patient Records regulations: The Federal rules restrict any use of the information to criminally investigate or prosecute any alcohol or drug abuse patient.[facility] the event this information is protected by the Federal Confidentiality of Alcohol and Drug Abuse Patient Records regulations: The Federal rules restrict any use of the information to criminally investigate or prosecute any alcohol or drug abuse patient.[facility] the event this information is protected by the Federal Confidentiality of Alcohol and Drug Abuse Patient Records regulations: The Federal rules restrict any use of the information to criminally investigate or prosecute any alcohol or drug abuse patient.[facility] the event this information is protected by the Federal Confidentiality of Alcohol and Drug Abuse Patient Records regulations: The Federal rules restrict any use of the information to criminally investigate or prosecute any alcohol or drug abuse patient.[facility] [place] the event this information is protected by the Federal Confidentiality of Alcohol and Drug Abuse Patient Records regulations: The Federal rules restrict any use of the information to criminally investigate or prosecute any alcohol or drug abuse patient.[facility] the event this information is protected by the Federal Confidentiality of Alcohol and Drug Abuse Patient Records regulations: The Federal rules restrict any use of the information to criminally investigate or prosecute any alcohol or drug abuse patient.[facility] [place]burgIn the event this information is protected by the Federal Confidentiality of Alcohol and Drug Abuse Patient Records regulations: The Federal rules restrict any use of the information to criminally investigate or prosecute any alcohol or drug abuse patient.[facility] [place]burgIn the event this information is protected by the Federal Confidentiality of Alcohol and Drug Abuse Patient Records regulations: The Federal rules restrict any use of the information to criminally investigate or prosecute any alcohol or drug abuse patient.[facility] [place]burgIn the event this information is protected by the Federal Confidentiality of Alcohol and Drug Abuse Patient Records regulations: The Federal rules restrict any use of the information to criminally investigate or prosecute any alcohol or drug abuse patient.[facility] [place]burgIn the event this information is protected by the Federal Confidentiality of Alcohol and Drug Abuse Patient Records regulations: The Federal rules restrict any use of the information to criminally investigate or prosecute any alcohol or drug abuse patient.[facility] [place]burgIn the event this information is protected by the Federal Confidentiality of Alcohol and Drug Abuse Patient Records regulations: The Federal rules restrict any use of the information to criminally investigate or prosecute any alcohol or drug abuse patient.[facility] [place]burgIn the event this information is protected by the Federal Confidentiality of Alcohol and Drug Abuse Patient Records regulations: The Federal rules restrict any use of the information to criminally investigate or prosecute any alcohol or drug abuse patient.[facility] [place]burgIn the event this information is protected by the Federal Confidentiality of Alcohol and Drug Abuse Patient Records regulations: The Federal rules restrict any use of the information to criminally investigate or prosecute any alcohol or drug abuse patient.[facility] [place]burgIn the event this information is protected by the Federal Confidentiality of Alcohol and Drug Abuse Patient Records regulations: The Federal rules restrict any use of the information to criminally investigate or prosecute any alcohol or drug abuse patient.[facility] [place]burgIn the event this information is protected by the Federal Confidentiality of Alcohol and Drug Abuse Patient Records regulations: The Federal rules restrict any use of the information to criminally investigate or prosecute any alcohol or drug abuse patient.[facility] [place]burgIn the event this information is protected by the Federal Confidentiality of Alcohol and Drug Abuse Patient Records regulations: The Federal rules restrict any use of the information to criminally investigate or prosecute any alcohol or drug abuse patient.[facility] [place]burgIn the event this information is protected by the Federal Confidentiality of Alcohol and Drug Abuse Patient Records regulations: The Federal rules restrict any use of the information to criminally investigate or prosecute any alcohol or drug abuse patient.[facility] [place]burgIn the event this information is protected by the Federal Confidentiality of Alcohol and Drug Abuse Patient Records regulations: The Federal rules restrict any use of the information to criminally investigate or prosecute any alcohol or drug abuse patient.[facility] [place]burgIn the event this information is protected by the Federal Confidentiality of Alcohol and Drug Abuse Patient Records regulations: The Federal rules restrict any use of the information to criminally investigate or prosecute any alcohol or drug abuse patient.[facility] [place]burgIn the event this information is protected by the Federal Confidentiality of Alcohol and Drug Abuse Patient Records regulations: The Federal rules restrict any use of the information to criminally investigate or prosecute any alcohol or drug abuse patient.[facility] [place]burgIn the event this information is protected by the Federal Confidentiality of Alcohol and Drug Abuse Patient Records regulations: The Federal rules restrict any use of the information to criminally investigate or prosecute any alcohol or drug abuse patient.[facility] [place]burgIn the event this information is protected by the Federal Confidentiality of Alcohol and Drug Abuse Patient Records regulations: The Federal rules restrict any use of the information to criminally investigate or prosecute any alcohol or drug abuse patient.[facility] [place]burgIn the event this information is protected by the Federal Confidentiality of Alcohol and Drug Abuse Patient Records regulations: The Federal rules restrict any use of the information to criminally investigate or prosecute any alcohol or drug abuse patient.[facility] [place]burgIn the event this information is protected by the Federal Confidentiality of Alcohol and Drug Abuse Patient Records regulations: The Federal rules restrict any use of the information to criminally investigate or prosecute any alcohol or drug abuse patient.[facility] [place]burgIn the event this information is protected by the Federal Confidentiality of Alcohol and Drug Abuse Patient Records regulations: The Federal rules restrict any use of the information to criminally investigate or prosecute any alcohol or drug abuse patient.[facility] [place]burgIn the event this information is protected by the Federal Confidentiality of Alcohol and Drug Abuse Patient Records regulations: The Federal rules restrict any use of the information to criminally investigate or prosecute any alcohol or drug abuse patient.[facility] [place]burgIn the event this information is protected by the Federal Confidentiality of Alcohol and Drug Abuse Patient Records regulations: The Federal rules restrict any use of the information to criminally investigate or prosecute any alcohol or drug abuse patient.[facility] [place]burgIn the event this information is protected by the Federal Confidentiality of Alcohol and Drug Abuse Patient Records regulations: The Federal rules restrict any use of the information to criminally investigate or prosecute any alcohol or drug abuse patient.[facility] [place]burgIn the event this information is protected by the Federal Confidentiality of Alcohol and Drug Abuse Patient Records regulations: The Federal rules restrict any use of the information to criminally investigate or prosecute any alcohol or drug abuse patient.[facility] [place]burgIn the event this information is protected by the Federal Confidentiality of Alcohol and Drug Abuse Patient Records regulations: The Federal rules restrict any use of the information to criminally investigate or prosecute any alcohol or drug abuse patient.[facility] [place]burgIn the event this information is protected by the Federal Confidentiality of Alcohol and Drug Abuse Patient Records regulations: The Federal rules restrict any use of the information to criminally investigate or prosecute any alcohol or drug abuse patient.[facility] [place]burgIn the event this information is protected by the Federal Confidentiality of Alcohol and Drug Abuse Patient Records regulations: The Federal rules restrict any use of the information to criminally investigate or prosecute any alcohol or drug abuse patient.[facility] [place]burgIn the event this information is protected by the Federal Confidentiality of Alcohol and Drug Abuse Patient Records regulations: The Federal rules restrict any use of the information to criminally investigate or prosecute any alcohol or drug abuse patient.[facility] [place]burgIn the event this information is protected by the Federal Confidentiality of Alcohol and Drug Abuse Patient Records regulations: The Federal rules restrict any use of the information to criminally investigate or prosecute any alcohol or drug abuse patient.[facility] [place]burgIn the event this information is protected by the Federal Confidentiality of Alcohol and Drug Abuse Patient Records regulations: The Federal rules restrict any use of the information to criminally investigate or prosecute any alcohol or drug abuse patient.[facility] [place]burgIn the event this information is protected by the Federal Confidentiality of Alcohol and Drug Abuse Patient Records regulations: The Federal rules restrict any use of the information to criminally investigate or prosecute any alcohol or drug abuse patient.[facility] [place]burgIn the event this information is protected by the Federal Confidentiality of Alcohol and Drug Abuse Patient Records regulations: The Federal rules restrict any use of the information to criminally investigate or prosecute any alcohol or drug abuse patient.[facility] [place]burgIn the event this information is protected by the Federal Confidentiality of Alcohol and Drug Abuse Patient Records regulations: The Federal rules restrict any use of the information to criminally investigate or prosecute any alcohol or drug abuse patient.[facility] [place]burgIn the event this information is protected by the Federal Confidentiality of Alcohol and Drug Abuse Patient Records regulations: The Federal rules restrict any use of the information to criminally investigate or prosecute any alcohol or drug abuse patient.[facility] [place] Care Teams (unrecognized sec tion and content) Financial Reporting Consultant Relationship Specialty Start Date End Date Bhanu Meng MD [address] [facility] [place] [address] PCP - General Family Practice 07/08/15 Financial Reporting Consultant Relationship Specialty Start Date End Date Bhanu Meng MD [facility] [facility] [place] [address] PCP - General Family Practice 07/08/15 Financial Reporting Consultant Relationship Specialty Start Date End Date Bhanu Meng MD [address] [place] [address] [place] [address] PCP - General Family Practice 07/08/15 Financial Reporting Consultant Relationship Specialty Start Date End Date Bhanu Meng MD [address] [place] [address] [place] [address] PCP - General Family Practice 07/08/15 Financial Reporting Consultant Relationship Specialty Start Date End Date Bhanu Meng MD [facility] [place] [address] PCP - General Family Practice 07/08/15 Financial Reporting Consultant Relationship Specialty Start Date End Date Bhanu Meng MD [address] [place] [address] [place] [address] PCP - General Family Practice 07/08/15 Financial Reporting Consultant Relationship Specialty Start Date End Date Bhanu Meng MD [address] [place] [address], [place] [address] PCP - General Family Practice 07/08/15 Financial Reporting Consultant Relationship Specialty Start Date End Date Bhanu Meng MD [address] [place] [address] [place] [address] PCP - General Family Practice 07/08/15 Financial Reporting Consultant Relationship Specialty Start Date End Date Bhanu Meng MD [address] [place] [address], [place] [address] PCP - General Family Practice 07/08/15 Financial Reporting Consultant Relationship Specialty Start Date End Date Bhanu Meng MD [facility] [place] [address] PCP - General Family Practice 07/08/15 Financial Reporting Consultant Relationship Specialty Start Date End Date Bhanu Meng MD [address] [place] [address], [place] [address] PCP - General Family Practice 07/08/15 Financial Reporting Consultant Relationship Specialty Start Date End Date Bhanu eMng MD [address] [place] [address], [place] [address] PCP - General Family Medicine 07/08/15 Financial Reporting Consultant Relationship Specialty Start Date End Date Bhanu Meng MD [address] [place] [address], [place] [address] PCP - General Family Medicine 07/08/15 Financial Reporting Consultant Relationship Specialty Start Date End Date Bhanu Meng MD [address] [place] [address], [place] [address] PCP - General Family Medicine 07/08/15 Financial Reporting Consultant Relationship Specialty Start Date End Date Bhanu Meng MD [address] [place] [address] [place] [address] PCP - General Family Medicine 07/08/15 Financial Reporting Consultant Relationship Specialty Start Date End Date Bhanu Meng MD [address] [place] [address], [place] [address] PCP - General Family Medicine 07/08/15 Financial Reporting Consultant Relationship Specialty Start Date End Date Bhanu Meng MD [address] [place] [address], [place] [address] PCP - General Family Medicine 07/08/15 Financial Reporting Consultant Relationship Specialty Start Date End Date Bhanu Meng MD [address] [facility] [place] [address] PCP - General Family Medicine 07/08/15 Financial Reporting Consultant Relationship Specialty Start Date End Date Bhanu Meng MD [address] [facility] [place] [address] PCP - General Family Medicine 07/08/15 Financial Reporting Consultant Relationship Specialty Start Date End Date Bhanu Meng MD [address] [facility] [place] [address] PCP - General Family Medicine 07/08/15 Financial Reporting Consultant Relationship Specialty Start Date End Date Bhanu Meng MD [address] [facility] [place] [address] PCP - General Family Medicine 07/08/15 Financial Reporting Consultant Relationship Specialty Start Date End Date Bhanu Meng MD [address] [facility] [place] [address] PCP - General Family Medicine 07/08/15 Financial Reporting Consultant Relationship Specialty Start Date End Date Bhanu Meng MD [address] [facility] [place] [address] PCP - General Family Medicine 07/08/15 Financial Reporting Consultant Relationship Specialty Start Date End Date Bhanu Meng MD [address] [facility] [place] [address] PCP - General Family Medicine 07/08/15 Financial Reporting Consultant Relationship Specialty Start Date End Date Bhanu Meng MD [address] [facility] [place] [address] PCP - General Family Medicine 07/08/15 Financial Reporting Consultant Relationship Specialty Start Date End Date Bhanu Meng MD [address] [place] [address] PCP - General Family Medicine 07/08/15 Financial Reporting Consultant Relationship Specialty Start Date End Date Bhanu Meng MD [address] [place] [address] PCP - General Family Medicine 07/08/15 Financial Reporting Consultant Relationship Specialty Start Date End Date Bhanu Meng MD [address] [place] [phone] PCP - General 11/15/20 Financial Reporting Consultant Relationship Specialty Start Date End Date Bhanu Meng MD [address] [place] [address] PCP - General Family Medicine 07/08/15 Financial Reporting Consultant Relationship Specialty Start Date End Date Bhanu Meng MD [address] [place] [phone] PCP - General 11/15/20 Financial Reporting Consultant Relationship Specialty Start Date End Date Bhanu Meng MD [address] [place] [phone] PCP - General 11/15/20 Financial Reporting Consultant Relationship Specialty Start Date End Date Bhanu Meng MD [address] [place] [phone] PCP - General 11/15/20 Financial Reporting Consultant Relationship Specialty Start Date End Date Bhanu Meng MD [address] [place], [place] [address] PCP - General Family Medicine 07/08/15 Team Status: Active Member Role Status Dates Dr. Bhanu Meng MD Family Provider Active Dr. Bhanu Meng MD Primary Care Provider Active Team Status: Inactive Member Role Status Dates Dr. Bhanu Meng MD Primary Care Provider Active Rafaela [place] , OIL FIELD LABORER-C Attending Provider Active Financial Reporting Consultant Relationship Specialty Start Date End Date Bhanu Meng MD [address] [place] [address] PCP - General Family Medicine 07/08/15 Financial Reporting Consultant Relationship Specialty Start Date End Date Bhanu Meng MD [address] [place] [address] PCP - General Family Medicine 07/08/15 Financial Reporting Consultant Relationship Specialty Start Date End Date Bhanu Meng MD [address] [place] [address] PCP - General Family Medicine 07/08/15 Financial Reporting Consultant Relationship Specialty Start Date End Date Bhanu Meng MD [address] [place] [address] PCP - General Family Medicine 07/08/15 Financial Reporting Consultant Relationship Specialty Start Date End Date Bhanu Meng MD [address] [place] [address] PCP - General Family Medicine 07/08/15 Financial Reporting Consultant Relationship Specialty Start Date End Date Bhanu Meng MD [address] [place] [address] PCP - General Family Medicine 07/08/15 Financial Reporting Consultant Relationship Specialty Start Date End Date Bhanu Meng MD [address] [place] [address] PCP - General Family Medicine 07/08/15 Financial Reporting Consultant Relationship Specialty Start Date End Date Bhanu Meng MD [address] [place] [address] PCP - General Family Medicine 07/08/15 Financial Reporting Consultant Relationship Specialty Start Date End Date Bhanu Meng MD [address] [place] [address] PCP - General Family Medicine 07/08/15 Financial Reporting Consultant Relationship Specialty Start Date End Date Bhanu Meng MD [address] [place] [phone] PCP - General 11/15/20 Financial Reporting Consultant Relationship Specialty Start Date End Date Bhanu Meng MD [address] [place] [address] PCP - General Family Medicine 07/08/15 Financial Reporting Consultant Relationship Specialty Start Date End Date Bhanu Meng MD [facility] [place] [address] PCP - General Family Medicine 11/27/23 Financial Reporting Consultant Relationship Specialty Start Date End Date Bhanu Meng MD [address] [place] [address] PCP - General Family Medicine 11/27/23 Financial Reporting Consultant Relationship Specialty Start Date End Date Bhanu Meng MD [address] [place] [address] PCP - General Family Medicine 11/27/23 Financial Reporting Consultant Relationship Specialty Start Date End Date Bhanu Meng MD [facility] [place] [address] PCP - General Family Medicine 07/08/15 Financial Reporting Consultant Relationship Specialty Start Date End Date Bhanu Meng MD [address] [place] [address] PCP - General Family Medicine 11/27/23 Financial Reporting Consultant Relationship Specialty Start Date End Date Bhanu Meng MD [address] [place] [address] PCP - General Family Medicine 11/27/23 Financial Reporting Consultant Relationship Specialty Start Date End Date Bhanu Meng MD [address] [place] [address] PCP - General Family Medicine 11/27/23 Financial Reporting Consultant Relationship Specialty Start Date End Date Bhanu Meng MD [address] [place] [address] PCP - General Family Medicine 07/08/15 Financial Reporting Consultant Relationship Specialty Start Date End Date Bhanu Meng MD [address] [place] [address] PCP - General Family Medicine 07/08/15 Financial Reporting Consultant Relationship Specialty [place] [address] [place] [address] PCP - General Family Medicine 07/08/15 Financial Reporting Consultant Relationship Specialty Start Date End Date Bhanu Meng MD [address] [place] [phone] PCP - General 11/15/20 Financial Reporting Consultant Relationship Specialty [place] [address] [place] [address] [place] [address] PCP - General Family Medicine 07/08/15 Rafaela [place], AMARIS.DIVER HELPER [address] [place] [address] Survey Superintendent Family Medicine 05/04/24 Marilyn Hair PA-C [address] [place] [address] Survey Superintendent Family Medicine 05/04/24 Financial Reporting Consultant Relationship Specialty Start Date End Date Bhanu Meng MD [address] [place] [address] PCP - General Family Medicine 07/08/15 Rafaela [place] APRN.DIVER HELPER [address] [place] [address] Survey Superintendent Family Medicine 05/04/24 Marilyn Hair PA-C [address] [place] [address] Survey Superintendent Family Medicine 05/04/24 Financial Reporting Consultant Relationship Specialty Start Date End Date Fortino Chakraborty MD PCP - General Family Medicine 12/25/15 10/15/18 Financial Reporting Consultant Relationship Specialty Start Date End Date Bhanu Meng MD [address] [place] [address] PCP - General Family Medicine 07/08/15 Rafaela [place], AMARIS.DIVER HELPER [address] [place] [address] Survey Superintendent Family Medicine 05/04/24 Marilyn Hair PA-C [address] [place] [address] Survey Superintendent Family Medicine 05/04/24 Financial Reporting Consultant Relationship Specialty Start Date End Date Bhanu Meng MD [address] [place] [address] PCP - General Family Medicine 07/08/15 Rafaela [place], BAG BUILDER.DIVER HELPER [address] [place] [address] Survey Superintendent Family Medicine 05/04/24 Marilyn Hair PA-C [address] [place] [address] Survey Superintendent Family Medicine 05/04/24 Financial Reporting Consultant Relationship Specialty Start Date End Date Bhanu Meng MD [address] [place] [address] PCP - General Family Medicine 11/27/23 Financial Reporting Consultant Relationship Specialty Start Date End Date Bhanu Meng MD [address] [place] [address] PCP - General Family Medicine 11/27/23 Financial Reporting Consultant Relationship Specialty Start Date End Date Bhanu Meng MD [address] [place] [address] PCP - General Family Medicine 07/08/15 Rafaela [place], BAG BUILDER.DIVER HELPER [address] [place] [address] Survey Superintendent Family Medicine 10/28/24 Marilyn Hair PA-C [address] [facility] [place] [address] Survey Superintendent Family Medicine 10/28/24 Financial Reporting Consultant Relationship Specialty Start Date End Date Bhanu Meng MD [address] [facility] [place] [address] PCP - General Family Medicine 07/08/15 Rafaela [place] APRN.DIVER HELPER [address] [place] [address] Survey Superintendent Family Medicine 10/28/24 Marilyn Hair PA-C [address] [place] [address] Survey Superintendent Family Medicine 10/28/24 Financial Reporting Consultant Relationship Specialty Start Date End Date Bhanu Meng MD [address] [place] [address] PCP - General Family Medicine 07/08/15 Rafaela [place] APRN.DIVER HELPER [address] [place] [address] Survey Superintendent Family Medicine 10/28/24 Marilyn Hair PA-C [address] [facility] [place] [address] Survey Superintendent Family Medicine 10/28/24 Financial Reporting Consultant Relationship Specialty Start Date End Date Bhanu Meng MD [address] [facility] [place] [address] PCP - General Family Medicine 07/08/15 Rafaela [place] APRN.DIVER HELPER [address] [place] [address] Survey Superintendent Family Medicine 10/28/24 Marilyn Hair PA-C [address] [place] [address] Survey Superintendent Family Medicine 10/28/24 Financial Reporting Consultant Relationship Specialty Start Date End Date Bhanu Meng MD [address] [place] [address] PCP - General Family Medicine 07/08/15 Rafaela [place] APRN.DIVER HELPER [address] [place] [address] Survey Superintendent Family Medicine 10/28/24 Marilyn Hair PA-C [address] [place] [address] Survey Superintendent Family Medicine 10/28/24 Financial Reporting Consultant Relationship Specialty Start Date End Date Bhanu Meng MD [address] [place] [address] PCP - General Family Medicine 07/08/15 Rafaela [place] APRN.DIVER HELPER [address] [place] [address] Survey Superintendent Family Medicine 10/28/24 Marilyn Hair PA-C [address] [place] [address] Survey Superintendent Family Medicine 10/28/24 Financial Reporting Consultant Relationship Specialty Start Date End Date Bhanu Meng MD [address] [place] [address] PCP - General Family Medicine 07/08/15 Rafaela [place], BAG BUILDER.DIVER HELPER [address] [place] [address] Survey Superintendent Family Medicine 10/28/24 Marilyn Hair PA-C [address] [facility] [place] [address] Survey Superintendent Family Medicine 10/28/24 Financial Reporting Consultant Relationship Specialty Start Date End Date Bhanu Meng MD [address] [place] [address] PCP - General Family Medicine 07/08/15 Rafaela Washington, BAG BUILDER.DIVER HELPER [address] [place] [address] Survey Superintendent Family Medicine 10/28/24 Marilyn Hair PA-C [address] [facility] [place] [address] Survey Superintendent Family Medicine 10/28/24 Financial Reporting Consultant Relationship Specialty Start Date End Date Bhanu Meng MD [address] [place] [address] PCP - General Family Medicine 11/27/23 Financial Reporting Consultant Relationship Specialty Start Date End Date Bhanu Meng MD [address] [place] [address] PCP - General Family Medicine 11/27/23 Team Status: Active Member Role/Relationship Status Dates Dr. Bhanu Meng MD Primary care physician Active Team Status: Active Member Role/Relationship Status Dates Dr. Bhanu Meng MD Primary care physician Active Start: February 25, 2025 LUCY Jimenez Attending physician Active St art: February 25, 2025 LUCY Jimenez Referring Provider Active Sta rt: February 25, 2025 Team Status: Inactive Member Role/Relationship Status Dates Dr. Bhanu Meng MD Primary care physician Active Start: March 03, 2025 End: March 03, 2025 Dr. Bhanu Meng MD Referring Provider Active Start: March 03, 2025 End: March 03, 2025 Dr. Rosalio Solomon , Attending physician Active Start: March 03, 2025 End: March 03, 2025 Scheduled Active and Recently Administ ered Medications (unrecognized section and content) Medication Order 04/20/2023 04/21/2023 04/22/2023 cefTRIAXone (Rocephin) IVPB 1 g (COMPLETED) 1 g, intravenous, at 100 mL/hr, Administer over 30 Minutes, Once, On 04/22/23 at 0220, For 1 dose, premix bag, Suspected Indication (Select all that apply): Sinusitis/Other ENT, Type of Therapy: Empiric 0230 (New Bag - Prov ider: Loli Montana RN)0300 (Stopped - Provider: Loli Montana RN) ketorolac (Toradol) injection 15 mg (COMPLETED) 15 mg, intravenous, Once, On 04/22/23 at 0220, For 1 dose 0227 (Given - Provid er: Loli Montana RN) Scheduled Medication Order 05/19/2023 05/20/2023 05/21/2023 pantoprazole (ProtoNix) EC tablet 40 mg 40 mg, oral, Daily before breakfast, First dose (after last modification) on 05/21/23 at 0400, Do not crush, chew, or split. 0406 (Given - Provid er: Loli Montana RN)0700 (Due) Scheduled Medication Order 10/10/2023 10/11/2023 10/12/2023 dexAMETHasone (Decadron) tablet 12 mg (COMPLETED) 12 mg, oral, Once, On Sandra 10/12/23 at 2125, For 1 dose 2125 (Given - Provid er: Debra Ly RN) Scheduled Medication Order 01/15/2024 01/16/2024 01/17/2024 acetaminophen (TYLENOL) tablet 1,000 mg 1,000 mg, Oral, EVERY 6 HOURS NON-STANDARD, First dose on 01/17/24 at 1200, Until Discontinued, Maximum dose of acetaminophen is 4000 mg from all sources in 24 hours., Post-op/Post-Proc 1200 (Canceled Entry - Provider: System Discharge - Comment: Automatically canceled at discontinue of medication order) Aspirin tablet delayed release 81 mg 81 mg, Oral, EVERY 12 HOURS, First dose on Sandra 01/18/24 at 0900, Until Discontinued, Start in AM day after surgery, Post-op/Post-Proc ceFAZolin (ANCEF) 2 g in dextrose 100 mL premix IVPB 2 g, Intravenous, Administer over 30 Minutes, EVERY 8 HOURS NON-STANDARD, 3 doses, First dose on Mon01/17/24 at 1530, Last dose on Mon01/18/24 at 0730, Post-op/Post-Proc 1400 ($$New Bag$$ - Provider: Nury Lance RN) cloNIDine injection 110 mcg(Linked Group 1) 110 mcg (rounded from 113.4 mcg = 2 mcg/kg 56.7 kg Order-specific weight), Intra-articular, INTRA-OP ONCE, Starting on Mon01/17/24 at 0654, Until Mon01/17/24 at 1707, Intra-op/Intra-Proc 0815 (Given - Provid er: Debra Eaton RN - Comment: given to sterile field) Docusate (COLACE) capsule 100 mg 100 mg, Oral, 2 TIMES DAILY, First dose on Mon01/17/24 at 0945, Until Discontinued, Post-op/Post-Proc 0945 (Canceled Entry - Provider: System Discharge - Comment: Automatically canceled at discontinue of medication order)1700 (Canceled Entry - Provider: System Discharge - Comment: Automatically canceled at discontinue of medication order) Ketorolac (TORADOL) injection 7.5 mg 7.5 mg, Intravenous, EVERY 6 HOURS, 12 doses, First dose on Mon01/17/24 at 1200, Last dose on Mon01/20/24 at 0600, Post-op/Post-Proc 1200 (Canceled Entry - Provider: System Discharge - Comment: Automatically canceled at discontinue of medication order) total joint mixture (no clonidine) premade bag 1 Bag(Linked Group 1) Intra-articular, INTRA-OP ONCE, Starting on Mon01/17/24 at 0654, Until Mon01/17/24 at 1707, To be mixed by pharmacy. NOT for IV use., Intra-op/Intra-Proc 0814 (Given - Provid er: Debra Eaton RN - Comment: given to sterile field) Continuous Medication Order 01/15/2024 01/16/2024 01/17/2024 Lactated ringers IV solution Intravenous, at 75 mL/hr, CONTINUOUS, Starting on Mon01/17/24 at 0545, Until Mon01/17/24 at 1707, Pre-op/Pre-Proc 0601 ($$New Bag$$ - Provider: Angi De La Cruz RN)0844 (Paused - Provider: JACOBY Jiang - Comment: Switch to gravity)0845 ($$New Bag$$ - Provider: JACOBY Jiang)0913 (Anesthesia Volume Adjustment - Provider: SAGE JiangCLAIM AUDITOR)0948 ($$New Bag$$ - Provider: Araceli Ovalle RN) ROPivacaine HCl-NaCl 0.2-0.9 % On-Q pump Surgical Site, CONTINUOUS, Starting on Mon01/17/24 at 0915, Until Mon01/17/24 at 1707, Recovery to Continue 0936 ($$New Bag$$ - Provider: Araceli Ovalle RN) Sodium chloride 0.9% IV solution Intravenous, at 100 mL/hr, CONTINUOUS, Starting on Mon01/17/24 at 0945, Until Mon01/17/24 at 1707, Convert IV to PRN adapter if adequate oral intake, Post-op/Post-Proc 0947 (Not Given - Pr ovider: Nury Lance RN - Reason: Other) PRN Medication Order 01/15/2024 01/16/2024 01/17/2024 acetaminophen (TYLENOL) tablet 1,000 mg (COMPLETED) 1,000 mg, Oral, ONCE DIRECTED, 1 dose, Starting on Mon01/17/24 at 0532, Until Mon01/17/24 at 0558, See admin instructions, Administer 1 hour preop., Pre-op/Pre-Proc 0558 (Given - Provid er: Angi De La Cruz RN) bisacodyl (DULCOLAX) suppository 10 mg 10 mg, Rectal, DAILY NEEDED, Starting on Mon01/17/24 at 0931, Until Mon01/17/24 at 1707, constipation, Post-op/Post-Proc ceFAZolin (ANCEF) 2 g in dextrose 100 mL premix IVPB (COMPLETED) 2 g, Intravenous, Administer over 15 Minutes, THREAD PULLING MACHINE ATTENDANT TO PROCEDURE, 1 dose, Starting on Mon01/17/24 at 0532, Until Mon01/17/24 at 0757, Other, Pre-operative antibiotic, Pre-op/Pre-Proc 0742 ($$New Bag$$ - Provider: Willian Muse BAG BUILDER-CLAIM AUDITOR) Celecoxib (CELEBREX) capsule 200 mg (COMPLETED) 200 mg, Oral, ONCE DIRECTED, 1 dose, Starting on Mon01/17/24 at 0532, Until Mon01/17/24 at 0558, See admin instructions, Administer 2 hours preop., Pre-op/Pre-Proc 0558 (Given - Provid er: Angi De La Cruz RN) dexAMETHasone (DECADRON) injection 10 mg 10 mg, Intravenous, ONCE DIRECTED, 1 dose, Starting on Mon01/17/24 at 1400, Until Mon01/17/24 at 1400, Nausea / Vomiting, Give dose #2 30 minutes prior to discharge. (dose #1 given pre-operatively by anesthesia), Post-op/Post-Proc 1400 (Given - Provid er: Nury Lance RN) HYDROmorphone (DILAUDID) injection 0.5 mg 0.5 mg, Intravenous, EVERY 4 HOURS NEEDED, Starting on Mon01/17/24 at 0931, Until Mon01/17/24 at 1707, Severe Pain, Post-op/Post-Proc Ondansetron 4mg/2ml (ZOFRAN) injection 4 mg 4 mg, Intravenous, EVERY 4 HOURS NEEDED, Starting on Mon01/17/24 at 0931, Until Mon01/17/24 at 1707, Nausea / Vomiting, Post-op/Post-Proc 0952 (Given - Provid er: Araceli Ovalle RN) oxyCODONE (ROXICODONE) tablet 5-10 mg 5-10 mg, Oral, EVERY 4 HOURS NEEDED, Starting on Mon01/17/24 at 0931, Until Mon01/17/24 at 1707, moderate-severe pain, If pain unrelieved with oxycodone, contact pharmacist to enter order for Oxycodone ER 10mg PO Q12H for 3 days, Post-op/Post-Proc Prochlorperazine (COMPAZINE) injection 10 mg (COMPLETED) 10 mg, Intravenous, EVERY 6 HOURS NEEDED, 1 dose, Starting on Mon01/17/24 at 1036, Until Mon01/17/24 at 1043, Nausea / Vomiting, For IV route: dilute dose with 10mL normal saline and give by slow IV push at a rate of 5mg/min. Maximum of 40mg/day. 1043 (Given - Provid er: Nury Lance RN) senna-docusate (SENOKOT-S) 8.6-50 MG per tablet 2 tablet 2 tablet, Oral, 2 TIMES DAILY NEEDED, Starting on Mon01/17/24 at 0931, Until Mon01/17/24 at 1707, constipation, Post-op/Post-Proc Sodium chloride 0.9 % irrigation (CANCELED) NEEDED, Starting on Mon01/17/24 at 0813, Until Mon01/17/24 at 0931, Intra-op/Intra-Proc 0813 (Canceled Entry - Provider: Rosalinda Barajas MD - Comment: given to sterile field)0814 (Given - Provider: Rosalinda Barajas MD) sodium phosphate w/sodium biphosphate (FLEETS) enema 1 enema 1 enema, Rectal, DAILY NEEDED, Starting on Mon01/17/24 at 0931, Until Mon01/17/24 at 1707, Refractory Constipation, use per package instructions, Post-op/Post-Proc tranexamic acid (LYSTEDA) tablet 1,950 mg (COMPLETED) 1,950 mg, Oral, ONCE DIRECTED, 1 dose, Starting on Mon01/17/24 at 0532, Until Mon01/17/24 at 0558, See admin instructions, Administer 2 hours preop, Pre-op/Pre-Proc 0558 (Given - Provid er: Angi De La Cruz RN) Vancomycin (VANCOCIN) injection (COMPLETED) CONTINUOUS NEEDED, Starting on Mon01/17/24 at 0814, Until Mon01/17/24 at 0928, Intra-op/Intra-Proc 0814 ($$New Bag$$ - Provider: Rosalinda Barajas MD - Comment: given to sterile filed) Zolpidem (AMBIEN) tablet 5 mg 5 mg, Oral, DAILY AT BEDTIME NEEDED, Starting on Mon01/17/24 at 0931, Until Mon01/17/24 at 170, Sleep, Post-op/Post-Proc Linked Groups Order Group 1: total joint mixture (no clonidine) premade bag 1 BagJump to med Intra-articular, INTRA-OP ONCE, Starting on Mon01/17/24 at 0654, Until Mon01/17/24 at 170, To be mixed by pharmacy. NOT for IV use., Intra-op/Intra-Proc And cloNIDine injection 110 mcgJump to med 110 mcg (rounded from 113.4 mcg = 2 mcg/kg 56.7 kg Order-specific weight), Intra-articular, INTRA-OP ONCE, Starting on Mon01/17/24 at 0654, Until Mon01/17/24 at 170, Intra-op/Intra-Proc Goals (unrecognized section and content) Goals may be documented in a n alternate sectionGoals may be documented in an alternate section FOR RECORDS PERTAINING TO PATIENTS WHO ARE [...] BE BASED ON THE PRIMARY CLINICAL RECORDS. [employer] [facility]. provides no warranty or guarantee of the accuracy or completeness of information in this document.
== END | disposition home or self-care (01) ==
LOC: OPMRI 07:39
PROVIDERS: PCP Family Medicine; Referring Provider Internal Medicine Gastroenterology; Visit Provider Internal Medicine Gastroenterology
DX: M62.89 Other specified disorders of muscle (principal)
CPT/HCPCS: 72197; A9575

== ENCOUNTER 2025-03-25 08:00 | Outpatient (RCR) | payer MEDICARE, OTHER, SELFPAY ==
--- NOTE | 2025-01-14 14:51 | HP.PTEVAL ---
Patient's Visit Information Visit Information Visit Information: LIAM KING is a 74 year old F referred to Physical Therapy by LUCY Jimenez with a diagnosis of PROLAPSE. Date of Evaluation: 01/07/25 Physical Therapist: Purvi Barajas PT, Cert MDT Visit Plan Frequency: 1x/Week Duration: 2-4 Months Plan: PF THERAPY FOR STRENGTHENING, LENGTHENING/RELAXATION AND ENDURANCE TRAINING. HEALTHY BLADDER, BACK AND POSTURE HABIT EDUCATION. TRAINING IN COORDINATION OF PELVIC FLOOR MUSCULATURE WITH HIP AND CORE (TRANSVERSE ABDOMINUS) MUSCULATURE. CORE STRENGTHENING. EYAL LE ROM, STRETCHING AND STRENGTHENING. TRAINING IN ABDOMINAL CAVITY PRESSURE MGMT WITH ADL'S. Subjective Subjective: Work/Leisure: RETIRED Present symptoms: WEAKNESS IN PELVIC AREA. INTERMITTENT FEELING OF A LITTLE BIT OF BULGING IN THE VAGINAL AREA WHEN SHOWERING MAYBE A COUPLE TIMES A WEEK THAT PATIENT PUSHES BACK UP IN AND THEN STAYS AND FEELS FINE - "IT DOESN'T EVEN HURT ME". PATIETNT DENIES ANY BOWEL OR URINARY INCONTINENE. Present since: A COUPLE OF YEARS Is it getting better, worse or staying the same: STAYING THE SAME Commenced as a result of: 3 VAGINAL VIRTHS Worse: STANDING Better: PUSHING IT BACK UP IN Disturbed sleep: GETTING UP TO URINATE APPROX ONE TIME PER NIGHT. Previous history/Previous treatment: [address] SHULTZ. Treatment this episode: CONSULT PENDING WITH A FIRE TECHNOLOGY INSTRUCTOR IN A FEW WEEKS. Coughing/sneezing/straining: NEGATIVE FOR UI Gait: NORMAL How long can you delay the need to urinate: LONG NEEDED TO MAKE IT TO THE BATHROOM IN TIME. Prolapse (Falling out feeling): A COUPLE TIMES A WEEK. Frequency of Urination: APPROX 4 TIMES A DAY Ability to stop urine flow: CAN COMPLETELY STOP THE FLOW Ability to initiate urine stream: YES, NEVER DIFFICULT. Dyspareunia: N/A Bowel Incontinence: PATIENT REPORTS SHE HAS NORMAL BOWEL MOVEMENTS AND SHE DOES NOT HAVE LEAKAGE OF BM BUT WHEN SHE GETS URGENCY SOMETIMES SHE HAS TO HURRY TO GET THERE IN TIME. Accidents: NO Unexplained weight loss: NO Imaging: NO PMH/Recent major surgery: L TKR BY DR. BARAJAS IN [place] DEC 2023 OTHER: PATIENT REPORTS SHE IS ACTIVE BUT DOES NOT HAVE A GYM MEMBERSHIP OR GO TO EX CLASS. SHE DOES DO EX'S BUT MAINLY WALKS ABOUT A MILE A DAY FOR EX. Objective Objective: Sitting/Standing Posture: R ILIAC CREST HIGHER THAN LEFT. REDUCED LORDOSIS. NO RELEVANT LATERAL LUMBAR SHIFT. Other Observations: THIS PATIENT AMBULATES INDEP'LY INTO PT WITHOUT ANY AD'S WITH MILD LIMP ON L LE. Sensory deficit: DECREASED LIGHT TOUCH SENSATION IN REGION OF L TKR INCISION. ROM deficit: EYAL HIP ADD, ER, HS AND CALF TIGHTNESS Motor deficit: EYAL LE'S GROSS 5/5 EXCEPT HIPS 4/5. PELVIC FLOOR: 3/5 X 4 REPS X 4 SEC WITH MANUAL INTERNAL VAGINAL TESTING. Dural Signs: NEGATIVE EYAL LE'S. Lumbar mvmt loss: flex - NIL ext - JAN R SG - JAN L SG - JAN Core strength: FAIR Palpation: NO ACUTE TENDERNESS WITH LIGHT PALPATION OF LUMBAR, SACARAL OR EYAL HIP REGIONS. PELVIC FLOOR: NO ACUTE TENDERNESS, INCREASED TONE OR TRIGGER POINTS WITH MANUAL INTERNAL VAGINAL PALPATION. Goals Goal 1:: INCREASE PELVIC FLOOR STRENGTH FOR BETTER ORGAN SUPPORT Goal Time Frame: 8-12 Weeks Goal 2:: INCREASE ABDOMINAL/TRUNK AND LE STRENGTH FOR OPTIMAL ORGAN SUPPORT Goal Time Frame: 8-12 Weeks Goal 3:: PATIENT WILL APPROPRIATELY MANAGE CHANGES IN INTRAABDOMINAL PRESSURE WITH APPROPRIATE PELVIC FLOOR MUSCLE ACTIVATION AND BREATHING TECHNIQUES. Goal Time Frame: 4-6 Weeks Goal 4:: PATIENT WILL DEMONSTRATE/COMMUNICATE PROPER POSTURE CONTROL AND BODY MECHANICS FOR HEALTHY BACK HABITS TO OPTIMIZE PELVIC FLOOR FUNCTION. Goal Time Frame: 2-4 Weeks Goal 5:: PATIENT WILL COMMUNICATE HEALTHY BLADDER HABITS TO OPTIMIZE PELVIC FLOOR FUNCTION. Goal Time Frame: 2-4 Weeks Goal 6:: PATIENT WILL BE INDEP WITH A HEP FOR CONTINUED IMPROVEMENT ONCE FORMAL PHYSICAL THERAPY CONCLUDES. Goal Time Frame: 8-12 Weeks Rehabilitation Potential Physical Therapy Diagnosis: CORE AND LE STIFFNESS AND WEAKNESS WITH PELVIC FLOOR WEAKNESS. Rehabilitation Potential: Good Anticipated Interventions Patient/Client Instruction: Educate patient on: Condition, Plan of Care and Risk Factors For the Purpose of:: To improve self management Therapeutic Exercise to Include: Strength training, Endurance training, Body mechanics, Postural training, Flexibilty training, Neuromotor development and Relaxation training For the Purpose of:: To improve muscle performance and motor function and To increase tolerance to activity/condition/position Text: Thank you for the opportunity to evaluate your patient. For Medicare and Medicare HMO plans, please review the plan of care and approve it. It will need to be FAXED BACK to us at [phone] for Medicare purposes. For Medicare only, by signing this I certify the plan of care. Please let me know if there are questions or concerns regarding this plan of care. Physician Signature: Date:
--- NOTE | 2025-03-25 14:36 | HP.PTDCSUM ---
Discharge Summary D/C summary: It has been my pleasure to treat LIAM KING referred by Charity Saleem NP-C, with the diagnosis of PROLAPSE for a total of 12 visit(s). Discharge Date: 03/25/25 Please see the following information for a summary of their discharge status. Subjective Subjective: PATIENT REPORTS SHE FEELS BETTER. "I FEEL THIS HAS HELPED ME. WHEN I SHOWER I DON'T FEEL IT HANGING DOWN EXCEPT EVERY NOW AND AGAIN NOW. I FEEL STRONGER". PATIENT DENIES UI, REPORTS GOOD FLUID INTAKE AND NORMAL VOIDING PATTERNS. HAD MRI OREDED BY DR. BURGESS LAST MONDAY. AWAITING RESULTS. Overall Improvement % Improvement: 80 Objective Objective/Function: PATIENT WAS SEEN TODAY FOR RE-ASSESSMENT OF PROGRESS TOWARD THE SET PT GOALS AND THE NEED FOR FURTHER PHYSICAL THERAPY VS READINESS FOR DISCHARGE. THIS PATIENT HAS MADE GOOD PROGRESS WITH PT INTERMS OF STRENGTH BUT HER SYMPTOMS HAVE NOT RESOLVED. SHE IS INDEP WITH A HEP AND PLANS TO CONTINUE THEM BASED ON THE IMPROVMENT SHE HAS FELT IN HER SYMPTOMS. SEE GOALS BELOW. SHE IS BEING ASSESSED BY DR. BURGESS FOR FURTHER SURGICAL PROCEEDURES. Pelvic Organ Prolapse Distress Inventory Score: 10 Urogenital Distress Inventory Score: 4 Goals Goal 1:: INCREASE PELVIC FLOOR STRENGTH FOR BETTER ORGAN SUPPORT Goal Progress: Progressing Goal 2:: INCREASE ABDOMINAL/TRUNK AND LE STRENGTH FOR OPTIMAL ORGAN SUPPORT Goal Progress: Progressing Goal 3:: PATIENT WILL APPROPRIATELY MANAGE CHANGES IN INTRAABDOMINAL PRESSURE WITH APPROPRIATE PELVIC FLOOR MUSCLE ACTIVATION AND BREATHING TECHNIQUES. Goal Progress: Progressing Goal 4:: PATIENT WILL DEMONSTRATE/COMMUNICATE PROPER POSTURE CONTROL AND BODY MECHANICS FOR HEALTHY BACK HABITS TO OPTIMIZE PELVIC FLOOR FUNCTION. Goal Progress: Goal Met Goal 5:: PATIENT WILL COMMUNICATE HEALTHY BLADDER HABITS TO OPTIMIZE PELVIC FLOOR FUNCTION. Goal Progress: Goal Met Goal 6:: PATIENT WILL BE INDEP WITH A HEP FOR CONTINUED IMPROVEMENT ONCE FORMAL PHYSICAL THERAPY CONCLUDES. Goal Progress: Goal Met Plan Plan: D/C TO INDEP EX PROGRAM. PATIENT AGREEABLE. D/C Information d/c sentence: If there are questions or concerns regarding this patient's physical therapy, please feel free to call me at [phone]. Thank you for the referral of this patient. Sincerely, Purvi Barajas, PT, Cert MDT Balance/Gait/Functional tests Improvement % Improvement: 80
== END 2025-03-25 14:59 | disposition home or self-care (01) ==
LOC: PT 08:00
PROVIDERS: PCP Family Medicine; Referring Provider Nurse Practitioner Women's Health; Visit Provider Nurse Practitioner Women's Health
DX: N81.4 Uterovaginal prolapse, unspecified (principal)
CPT/HCPCS: 97162; 97530